=== PATIENT | male | born 1955 | race Caucasian/White ===

== ENCOUNTER 2023-10-08 20:01 | Inpatient (IN) | payer MEDICARE, SELFPAY ==
[2023-10-08] VITALS (14 sets, daily range): BP systolic 116–162; BP diastolic 69–106; PULSE 103–135; RESP 16–33; TEMP 36.1–36.6; O2SAT 29–100; BMI 19.7; BMI 20.5
[2023-10-08 20:26] LABS: Absolute Lymphocyte Count 3.98 X10^3/uL (0.83-4.51); Basophil# 0.06 X10^3/uL; Basophil% 0.5 % (0-1); Eosinophils% 0.9 % (0-5); Hematocrit 47.1 % (40-54); Hemoglobin 15.1 g/dL (13.0-16.5); Lymphocyte # 3.98 X10^3/ul (0.83-4.51); Lymphocyte % 34.5 % (19-41); Mean Corp Hgb Conc 32.1 g/dL (32-36); Mean Corpuscular Hgb 30.8 pg (27.0-32.0); Mean Corpuscular Volume 95.9 fL (80-94); Mean Platelet Vol. 9.6 fl (6.2-12.0); Monocyte# 1.25 X10^3/uL; Monocyte% 10.8 % (0-10); NRBC Flagged by Analyzer 0 % (0-5); Platelet Count 284 K/mm3 (150-450); RBC Distribution Width CV 14.4 % (11.6-14.6); RBC Distribution Width SD 50.3 fl (35.1-43.9); Red Blood Count 4.91 M/mm3 (4.6-6.2); White Blood Count 11.5 K/mm3 (4.4-11.0)
[2023-10-08 20:35] LABS: Base Excess 3 mmol/L (-2 to +2); Bicarbonate 31.3 mmol/L (22-26); Blood Gas Specimen Type ART; Comment avaps; Mode Not entered; O2 Delivery Device BiPAP; PEEP 10; PO2 96 mmHG (75-100); RR 16; SITE L Brach; SO2 94 % (95-99); Time Given 20:31:43; Total Carbon Dioxide 34 mmol/L; pCO2 87.7 mmHg (35-45); pH 7.16 (7.35-7.45)
[2023-10-08] MEDS: Albuterol 2.5 MG/3 ML VIAL.NEB. INHALATION (20:35)
[2023-10-08] MEDS: Ipratropium/Albuterol Sulfate 3 ML AMPUL.NEB INHALATION (20:35)
[2023-10-08 20:38] LABS: Partial Thromboplast Time 27.1 Seconds (24.1-36.2)
--- NOTE | 2023-10-08 20:43 | EDS_ITS ---
HPI History of Present Illness Chief Complaint: Shortness of Breath Informant: family and EMS Narrative Narrative: Presents by EMS worsening respiratory distress. Status post IM epinephrine DuoNeb Solu-Medrol by EMS. Family shortly came afterwards history of COPD tobacco history and alcohol history. Daughter present and son-in-law. He has not seen a physician in years. Has been diagnosed COPD does not wear oxygen. EMS had a pulse ox of 70%. Per daughter, patient's sisters was at the house 2 days ago he declined to go to the hospital then. He may have had symptoms for 2 weeks. He has no allergies. PFSH PFSH Medical History no medical history Home Medications NK 10/08/23 [History Last Taken Unknown] Allergy/AdvReac Type Severity Reaction Status Date / Time No Known Allergies Allergy Verified 10/08/23 20:03 Surgical History no surgical history Social History Smoking Status: Heavy Smoker (>10/day) ROS ROS ED Review of Systems ROS Unobtainable: other Details: Limited due to respiratory distress EXAM Physical Exam Const Vital Signs: 10/08/23 20:02 10/08/23 20:02 10/08/23 20:08 Temperature 97.1 F L 97.1 F L Temperature Source Temporal Temporal Pulse Rate 133 H 131 H Respiratory Rate 30 H 30 H Respiratory Effort Short of Breath Labored Respiratory Depth Deep Respiratory Pattern Tachypnea Blood Pressure 162/106 H Blood Pressure Mean 124 Pulse Ox 100 99 Oxygen Delivery Method Non-Rebreather Non-Rebreather Non-Rebreather Oxygen Flow Rate (L/min) 15 15 15 Fraction of Inspired Oxygen (FIO2) 10/08/23 20:19 10/08/23 20:29 10/08/23 20:34 Temperature Temperature Source Pulse Rate 135 H 126 H Respiratory Rate 33 H 29 H Respiratory Effort Respiratory Depth Respiratory Pattern Tachypnea Blood Pressure Blood Pressure Mean Pulse Ox 95 96 Oxygen Delivery Method Bi-pap Oxygen Flow Rate (L/min) Fraction of Inspired Oxygen (FIO2) 35 10/08/23 20:56 10/08/23 21:02 10/08/23 21:10 Temperature Temperature Source Pulse Rate 124 H 120 H 122 H Respiratory Rate 31 H 29 H 31 H Respiratory Effort Respiratory Depth Respiratory Pattern Stridor Stridor Blood Pressure 133/86 H Blood Pressure Mean 101 Pulse Ox 96 96 97 Oxygen Delivery Method Bi-pap Oxygen Flow Rate (L/min) Fraction of Inspired Oxygen (FIO2) 35 10/08/23 21:11 Temperature Temperature Source Pulse Rate 120 H Respiratory Rate 29 H Respiratory Effort Respiratory Depth Respiratory Pattern Stridor Blood Pressure Blood Pressure Mean Pulse Ox Oxygen Delivery Method Oxygen Flow Rate (L/min) Fraction of Inspired Oxygen (FIO2) Constitutional Narrative: Currently nonrebreather with aerosol treatments running. Accessory muscle use with abdominal breathing. Moving all extremities. HEENT normocephalic and atraumatic Eyes General Eye ED: Yes normal appearance of both eyes Neck no lymphadenopathy and supple General: Negative for tenderness Chest Wall Chest: Negative for tenderness Resp Resp Narrative: Minimal air movement bilaterally. Effort and Inspection: respiratory distress Cardio regular rhythm and no murmurs Rate: tachycardic Peripheral Pulses: pulses 2+ throughout GI normal to inspection, nondistended, normoactive bowel sounds and non-tender Palpation: Negative for guarding or rebound tenderness present Extremity normal to inspection General Extremety ED: Negative for edema or tenderness General Extremity: Negative for edema Neuro Sensorium / Orientation: awake and alert Skin no rashes or lesions noted MDM MDM MDM Narrative Medical decision making narrative: Interventions / MDM: Differential diagnosis: COPD, respiratory failure. Diagnosis considered but do not suspect: Pneumothorax however x-ray negative. My EKG interpretation: Sinus tachycardia rate of 131, PVCs noted. Imaging independently reviewed and interpreted by myself: 1 view chest x-ray: Hyperinflated lungs. No pneumothorax. 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 Very minimal air movement. Sepsis labs ordered he is placed on a BiPAP with continued aerosol, heliox ordered with his COPD history. His heart rate was going on 135, however had a short spurt heart rate to 12 that converted back down to 130s, likely SVT. 2030: BiPAP and heliox is running. Additional aerosol treatments are running. ABG with pH of 7.16, CO2 87 PaO2 95 at 35% oxygenation. He is having air movement however still tight. Does seem to have upper airway breathing. Will try racemic epinephrine. 2100: 1 view chest x-ray noting COPD lungs. No pneumothorax. COVID and flu negative. Patient much better after treatments on a BiPAP. Blood work white count 11.5 creatinine 0.63 sodium 133. Lactic acid 2.8 however likely secondary to respiratory component. Therefore clinically not likely sepsis. Troponin at 23. Alcohol negative. I did discuss with hospitalist Dr. Garcia for admission to the ICU. Will start doxycycline with COPD history with productive sputum. Re-evaluation: stable Disposition discussed with patient/family/significant other: Patient and family Case discussed with consulting clinician: Hospitalist This note was generated with [employer] dictation software. It may contain incorrect words, spelling, and punctuation that were not noted in checking the note before signing. Lab Data Labs: Laboratory Results - last 24 hr 10/08/23 10/08/23 20:15 20:18 WBC 11.5 H RBC 4.91 Hgb 15.1 Hct 47.1 MCV 95.9 H MCH 30.8 MCHC 32.1 RDW Std Deviation 50.3 H RDW Coeff of Elidia 14.4 Plt Count 284 MPV 9.6 Immature Gran % (Auto) 1.300 H Neut % (Auto) 52.0 Lymph % (Auto) 34.5 [place] % (Auto) 10.8 H Eos % (Auto) 0.9 Baso % (Auto) 0.5 Absolute Neuts (auto) 6.0 Absolute Lymphs (auto) 3.98 Nucleated RBC % 0 PT 13.0 INR 1.0 APTT 27.1 Sodium 133 L Potassium 4.0 Chloride 94 L Carbon Dioxide 34.0 H Anion Gap 5 BUN 5 L Creatinine 0.63 L Estim Creat Clear Calc 82.38 Est GFR (MDRD) Af Amer 164 Est GFR (MDRD) Non-Af 135 BUN/Creatinine Ratio 8.0 L Glucose 184 H Lactic Acid 2.8 H* Calcium 8.8 Total Bilirubin 0.60 AST 80 H ALT 136 H Alkaline Phosphatase 89 Troponin I High Sens 23 Total Protein 7.7 Albumin 3.9 Globulin 3.8 Albumin/Globulin Ratio 1.0 Ethyl Alcohol < 3.0 ABG Data ABG results: ABG 10/08/23 20:30 Specimen Type ART Sample Site L Brach pH 7.16 L* Bicarbonate Actual 31.3 H Total CO2 34 Base Excess 3 H O2 Saturation 94 L O2 % 35.0 ABG pCO2 87.7 H* ABG pO2 96 Respiration Rate 16 O2 Delivery Device BiPAP Vent Mode Not entered Tidal Volume 450.0 POC PEEP 10 Crit Call To/Read Back Yes Blood Gas Notified Whom le Blood Gas Notified Time 20:31:43 Clinical Comments avaps Radiography Diagnostic Testing: Clinical Impression(s) from Imaging Studies Chest X-Ray 10/08/23 20:50 IMPRESSION: Hyperinflated lungs with interstitial prominence although no focal pneumonia. Findings are most likely due to COPD. Electronically Signed: Ben Catrer, at 21:01 EDT , Critical Care Time Critical Care Time: Yes Critical care time (excluding procedures): 30-74 minutes, Discussing w/Patient &/or Family/Concrete Mixer, Discussing w/Consultants, Arranging Admission or Tra nsfer, Performing Direct Patient Care at Bedside and - (40 minutes) Discharge Plan Dx/Rx/DC Orders Clinical Impression: Acute hypoxic respiratory failure, Alcohol abuse, Tobacco abuse, COPD exacerbation Disposition Disposition: Acute Care Hospital [facility] Discharge Date/Time: 10/08/23 23:27
[2023-10-08 20:48] LABS: Alcohol, Blood (Medical)-Serum < 3.0 mg/dL
[2023-10-08 20:49] LABS: AST(SGOT) 80 U/L (15-37); Alanine Aminotransfer ALT/SGPT 136 U/L (16-61); Albumin, Serum 3.9 g/dL (3.2-5.0); Alkaline Phosphatase 89 U/L (45-117); Anion Gap 5 (5-15); BUN 5 mg/dL (7-18); Calcium,Total 8.8 mg/dL (8.5-10.1); Chloride 94 mmol/L (98-107); Creatinine, Serum 0.63 mg/dL (0.70-1.30); EST Glomerular Filtration Rate 135 mL/min (>60); Est Glom Filt Rate - Afr Amer 164 mL/min (>60); Estimated Creatinine Clearance 82.38 ml/min; Globulin 3.8 g/dL (2.2-4.2); Glucose 184 mg/dL (74-106); Protein, Total 7.7 g/dL (6.4-8.2); Sodium Level 133 mmol/L (136-145); Troponin-I HS 23 pg/mL (3.0-78.0)
--- NOTE | 2023-10-08 20:50 | RAD_ITS ---
EXAM: XR CHEST, 1 VIEW CLINICAL INDICATION: sob TECHNIQUE: Frontal view of the chest. COMPARISON: No relevant prior studies available. FINDINGS: LUNGS AND PLEURAL SPACES: Hyperinflated lungs with interstitial prominence although no focal pneumonia. Findings are most likely due to COPD. No pneumothorax. No effusion. HEART: No significant abnormality. Cardiac silhouette not enlarged. MEDIASTINUM: Central airways and mediastinal contour are unremarkable. BONES/JOINTS: Degenerative changes in the spine and shoulders. No acute fracture. SOFT TISSUES: No significant abnormality. RAD/Chest 1 View (Portable) IMPRESSION: Hyperinflated lungs with interstitial prominence although no focal pneumonia. Findings are most likely due to COPD. Electronically Signed: Ben Carter DO at 21:01 EDT ,
[2023-10-08 21:08] LABS: Lactic Acid 2.8 mmol/L (0.4-1.9)
[2023-10-08] MEDS: Racepinephrine HCl 0.5 ML VIAL.NEB. INHALATION (21:08)
--- NOTE | 2023-10-08 21:23 | HP.PCM.HOS_ITS ---
HPI - General General Date of Admission: 10/08/23 Date of Service: 10/08/23 Chief Complaint: SOB and Wheezing HPI Narrative CHACORTA CONCEPCION, is a 68 M with a past medical history of tobacco abuse; with subsequent COPD, chronic alcohol abuse; with patient drinking six 40 ounce beers daily and history of agoraphobia; with patient refusing to leave his house for years who presents to [facility] ER complaining of shortness of breath and wheezing. Mr. Griffin reports his symptoms began approximately 2 weeks prior to admission with a gradual onset of dyspnea on exertion that progressed to shortness of breath at rest. He also admits to severe wheezing but he continues to smoke and drink alcohol as noted above. Two days ago his sisters came to see him at his house and he declined to go to the hospital at that time. Then EMS was activated earlier today and he was noted to have a pulse ox of 70% on room air with obvious respiratory distress so he was brought in for further evaluation and treatment. There is no report of fever, chills, nausea or vomiting but the daughter reports he has a chronic pattern of self-neglect with poor hygiene and declining functional status complicated by stubbornly wanting to avoid asking for help so she requested that palliative care be consulted this admission, which was done. In the ER he was diagnosed with acute exacerbation of COPD complicated by clinical evidence of acute hypoxic respiratory failure requiring BiPAP and heliox in the setting of ongoing tobacco abuse, alcohol a buse and medical noncompliance and he was then admitted to the ICU for ongoing care for stay that is expected to be greater than 48 hours. [facility] Medical History no medical history Home Medications NK 10/08/23 [History Last Taken Unknown] Allergy/AdvReac Type Severity Reaction Status Date / Time No Known Allergies Allergy Verified 10/08/23 20:03 Surgical History no surgical history Social History Smoking Status: Heavy Smoker (>10/day) ROS ROS Narrative Review of systems was not possible as patient is on BiPAP and heliox with acute shortness of breath so he was unable to complete a full review of systems at this time. Vital Signs Vital Signs Vital Signs: 10/08/23 20:02 10/08/23 20:02 10/08/23 20:08 Temperature 97.1 F L 97.1 F L Temperature Source Temporal Temporal Pulse Rate 133 H 131 H Respiratory Rate 30 H 30 H Respiratory Effort Short of Breath Labored Respiratory Depth Deep Respiratory Pattern Tachypnea Blood Pressure 162/106 H Blood Pressure Mean 124 Pulse Ox 100 99 Oxygen Delivery Method Non-Rebreather Non-Rebreather Non-Rebreather Oxygen Flow Rate (L/min) 15 15 15 Fraction of Inspired Oxygen (FIO2) 10/08/23 20:19 10/08/23 20:29 10/08/23 20:34 Temperature Temperature Source Pulse Rate 135 H 126 H Respiratory Rate 33 H 29 H Respiratory Effort Respiratory Depth Respiratory Pattern Tachypnea Blood Pressure Blood Pressure Mean Pulse Ox 95 96 Oxygen Delivery Method Bi-pap Oxygen Flow Rate (L/min) Fraction of Inspired Oxygen (FIO2) 35 10/08/23 20:56 10/08/23 21:02 10/08/23 21:10 Temperature Temperature Source Pulse Rate 124 H 120 H 122 H Respiratory Rate 31 H 29 H 31 H Respiratory Effort Respiratory Depth Respiratory Pattern Stridor Stridor Blood Pressure 133/86 H Blood Pressure Mean 101 Pulse Ox 96 96 97 Oxygen Delivery Method Bi-pap Oxygen Flow Rate (L/min) Fraction of Inspired Oxygen (FIO2) 35 10/08/23 21:11 Temperature Temperature Source Pulse Rate 120 H Respiratory Rate 29 H Respiratory Effort Respiratory Depth Respiratory Pattern Stridor Blood Pressure Blood Pressure Mean Pulse Ox Oxygen Delivery Method Oxygen Flow Rate (L/min) Fraction of Inspired Oxygen (FIO2) Weight Weight: 145 lb 4.554 oz Body Mass Index (BMI) 19.7 Physical Exam Const alert, oriented x3 and average body habitus Constitutional Narrative: Patient in mild distress on Heliox. Appears chronically ill. HEENT normocephalic, head/scalp atraumatic, hearing grossly normal bilaterally and moist oral mucous membranes Eyes PERRL and EOMs intact bilaterally Neck no lymphadenopathy and supple Resp Resp Narrative: Diminished breath sounds throughout with scattered wheezing and signs of stridor. Auscultation: wheezes Cardio regular rate and regular rhythm GI normal to inspection, nondistended, normoactive bowel sounds, soft to palpation, non-tender and non-distended Extremity normal to inspection, full ROM and no clubbing, cyanosis or edema Skin Skin Narrative: Patient has no evidence of abscess or rash. Neuro CN's II-XII intact bilaterally, moves all extremities and no focal motor deficits Sensorium / Orientation: awake, alert, oriented to person and oriented to place Speech: speech normal Psych affect normal Results Medical Records Data Attestation: I reviewed the patient's medical records Lab / Micro Data Attestation: I reviewed the patient's lab results. 10/09/23 04:45 10/08/23 20:15 Labs: Laboratory Results - last 24 hr 10/08/23 20:15: WBC 11.5 H, RBC 4.91, Hgb 15.1, Hct 47.1, MCV 95.9 H, MCH 30.8, MCHC 32.1, RDW Std Deviation 50.3 H, RDW Coeff of Elidia 14.4, Plt Count 284, MPV 9.6, Immature Gran % (Auto) 1.300 H, Neut % (Auto) 52.0, Lymph % (Auto) 34.5, [place] % (Auto) 10.8 H, Eos % (Auto) 0.9, Baso % (Auto) 0.5, Absolute Neuts (auto) 6.0, Absolute Lymphs (auto) 3.98, Nucleated RBC % 0, PT 13.0, INR 1.0, APTT 27.1, Sodium 133 L, Potassium 4.0, Chloride 94 L, Carbon Dioxide 34.0 H, Anion Gap 5, BUN 5 L, Creatinine 0.63 L, Estim Creat Clear Calc 82.38, Est GFR (MDRD) Af Amer 164, Est GFR (MDRD) Non-Af 135, BUN/Creatinine Ratio 8.0 L, Glucose 184 H, Lactic Acid 2.8 H*, Calcium 8.8, Total Bilirubin 0.60, AST 80 H, ALT 136 H, Alkaline Phosphatase 89, Troponin I High Sens 23, Total Protein 7.7, Albumin 3.9, Globulin 3.8, Albumin/Globulin Ratio 1.0 10/08/23 20:18: Ethyl Alcohol < 3.0 Micro: Microbiology 10/08/23 20:28 Mucosa - Nose SARS-CoV-2, Influenza & RSV (PCR) - Final ABG Data ABG results: ABG 10/08/23 20:30 Specimen Type ART Sample Site L Brach pH 7.16 L* Bicarbonate Actual 31.3 H Total CO2 34 Base Excess 3 H O2 Saturation 94 L O2 % 35.0 ABG pCO2 87.7 H* ABG pO2 96 Respiration Rate 16 O2 Delivery Device BiPAP Vent Mode Not entered Tidal Volume 450.0 POC PEEP 10 Crit Call To/Read Back Yes Blood Gas Notified Whom le Blood Gas Notified Time 20:31:43 Clinical Comments avaps Imaging Radiology Impression Chest X-Ray 10/08/23 20:50 IMPRESSION: Hyperinflated lungs with interstitial prominence although no focal pneumonia. Findings are most likely due to COPD. Electronically Signed: Ben Carter DO at 21:01 EDT , Assessment & Plan Assessment/Plan (1) COPD exacerbation: (2) Acute hypoxic respiratory failure: (3) Lactic acidosis: (4) Tobacco abuse: (5) Alcohol abuse: (6) Medical non-compliance: (7) Agoraphobia: PLAN: Plan 1. Acute exacerbation of COPD in the setting of ongoing tobacco abuse with severe acute hypoxic respiratory failure and severe respiratory acidosis present on admission requiring BiPAP and heliox - Admit to ICU. Continue IV doxycycline begun in the ER in addition to IV Solu-Medrol plus scheduled and as needed nebulizers. Tobacco cessation will be strongly encouraged with nicotine patch offered to control cravings. Recheck ABG to follow trend and response to treatment. 2. Mild lactic acidosis of 2.1 mmol/L present on admission due to #1 - Noted. Recheck lactate to ensure improvement. 3. History of severe alcohol abuse complicating #1 & #2 - Start alcohol withdrawal protocol consisting primarily of phenobarbital taper. Alcohol cessation will be strongly encouraged. 4. Medical noncompliance - Noted. Patient is still a full code at this time. Hopefully we can avoid intubation. I spoke at length with his daughter, Georgina, who is agreeable for palliative care consultation which has been ordered. 5. History of agoraphobia - Noted. Give anxiolytics as needed for breakthrough symptoms. 6. DVT prophylaxis - Lovenox 40 mg subcu daily. Total time: Approximately 75 minutes. Charges/Coding Visit Charges Inpatient E&M: 98127 Init Hosp L3
[2023-10-08] MEDS: Doxycycline 100 MG in Dextrose 5%-Water (250mL Bag) 250 ML 250 MG IV (21:50)
[2023-10-08 23:13] LABS: Allen Test Positive; Base Excess 5 mmol/L (-2 to +2); Bicarbonate 30.6 mmol/L (22-26); Blood Gas Specimen Type ART; Mode avaps; O2 Delivery Device Not entered; PEEP 10; PO2 67 mmHG (75-100); RR 16; SITE R Radial; SO2 91 % (95-99); Total Carbon Dioxide 32 mmol/L; pCO2 57.4 mmHg (35-45); pH 7.33 (7.35-7.45)
[2023-10-09] VITALS (17 sets, daily range): BP systolic 98–126; BP diastolic 65–103; PULSE 73–112; RESP 14–22; TEMP 36.1–36.9; O2SAT 94–100; BMI 20.5
[2023-10-09 00:19] LABS: Reflex Lactate? Y
--- NOTE | 2023-10-09 00:36 | ECHOD_ITS ---
Reason For Study: CHF Procedure This was a 2D Doppler, Color Flow transthoracic echocardiogram. Technically difficult study with limited views. Exam performed portable in ICU/CCU. Left Ventricle Normal size and thickness. Moderate global left ventricular systolic dysfunction. The left ventricular ejection fraction is 40 %. Unable to assess diastolic function based on available data. Right Ventricle Normal right ventricle. Atria The left and right atria are normal. Mitral Valve Trivial mitral valve insufficiency. Tricuspid Valve Mild tricuspid valve insufficiency. Normal pulmonary artery pressure. Aortic Valve Trisinus/trileaflet aortic valve. Pulmonic Valve The pulmonic valve is not well visualized. Great Vessels The aortic root is not well visualized. Pericardium/Pleural No pericardial effusion. MMode/2D Measurements & Calculations RVDd: 4.1 cm Time Measurements MV dec time: 0.20 sec Doppler Measurements & Calculations MV E max víctor: 50.7 cm/sec MV V2 max: 83.3 cm/sec MV A max víctor: 59.4 cm/sec MV max P.8 mmHg MV dec slope: 253.1 cm/sec2 MV E/A: 0.85 MV V2 mean: 44.5 cm/sec MV mean P.97 mmHg MV V2 VTI: 19.0 cm Ao V2 max: 120.1 cm/sec LV V1 max: 122.5 cm/sec MR max víctor: 499.9 cm/sec Ao max P.9 mmHg LV V1 max P.0 mmHg MR max P.0 mmHg Ao V2 mean: 99.1 cm/sec LV V1 mean P.0 mmHg Ao mean P.6 mmHg LV V1 mean: 80.3 cm/sec Ao V2 VTI: 27.1 cm LV V1 VTI: 19.7 cm AV (velocity ratio): 0.73 PA V2 max: 83.8 cm/sec TR max víctor: 206.4 cm/sec PA max PG (full): 1.1 mmHg TR max P.0 mmHg ECHO/Echo Complete Interpretation Summary Technically difficult study with limited views. Moderate global left ventricular systolic dysfunction. The left ventricular ejection fraction is 40 %. Mild tricuspid valve insufficiency. Ordering Physician: Mickey Floyd Performed By: Ronnie Marcos and Student
[2023-10-09] MEDS: Phenobarbital 32.4 MG Tablet PO ×5 (00:46→21:54)
[2023-10-09] MEDS: Lactobacillis Acidophilus 2 CAP PO ×3 (00:46→22:08)
[2023-10-09] MEDS: 0.9% Normal Saline (1000mL) 1,000 ML 70 ML IV (00:46)
[2023-10-09 01:31] LABS: BNP,B-Type NATRIURETIC PEPTIDE 124.1 pg/mL (0-100)
[2023-10-09 01:35] LABS: Lactic Acid 2.1 mmol/L (0.4-1.9)
[2023-10-09 05:17] LABS: Absolute Neutrophil Count 4.8 X10^3/uL (2.0-7.7); Hematocrit 42.2 % (40-54); Hemoglobin 13.8 g/dL (13.0-16.5); Lymphocyte % 5.8 % (19-41); Mean Corp Hgb Conc 32.7 g/dL (32-36); Mean Corpuscular Hgb 30.9 pg (27.0-32.0); Mean Corpuscular Volume 94.6 fL (80-94); Mean Platelet Vol. 9.8 fl (6.2-12.0); Monocyte# 0.07 X10^3/uL; Monocyte% 1.4 % (0-10); NRBC Flagged by Analyzer 0 % (0-5); Neutrophil # 4.78 X10^3/uL (2.7-7.7); Neutrophil % 92.4 % (47-70); POSITIVE DIFFERENTIAL YES; Platelet Count 266 K/mm3 (150-450); RBC Distribution Width CV 14.3 % (11.6-14.6); RBC Distribution Width SD 49.5 fl (35.1-43.9); Red Blood Count 4.46 M/mm3 (4.6-6.2); White Blood Count 5.2 K/mm3 (4.4-11.0)
[2023-10-09 05:38] LABS: Bacteria 0 SEEN /hpf (None Seen); Mucous, Urine 0 SEEN /hpf (<or=2+); Red Blood Cells-Urine 0 SEEN /hpf (0-5); White Blood Cells 0 SEEN /hpf (0-5)
[2023-10-09 05:53] LABS: Color, Urine Yellow (Yellow); Glucose, Dipstick 50 mg/dl (Normal); Ketone-Dipstick 15 mg/dl (Negative); Leukocyte Esterase-Dipstick Negative /ul (Negative); Nitrite-Dipstick Negative (Negative); Occult Blood-Urine Negative /ul (Negative); Protein-Dipstick 15 mg/dl (Negative); Urine Bilirubin Dipstick Negative (Negative); Urine Clarity Clear (Clear); Urine Urobilinogen 1 mg/dl (Normal); Urine pH 6.5 (5.0 - 8.0)
--- NOTE | 2023-10-09 05:55 | RAD_ITS ---
INDICATION: COPD exacerbation EXAMINATION/TECHNIQUE: X-RAY - XR Chest 1 View AP portable. 4:33 AM COMPARISON: 10/08/2023 FINDINGS: LINES/DEVICES: None. LUNGS: Mildly hyperinflated. No consolidation. No pneumothorax. MEDIASTINUM: Unremarkable. CARDIAC [place]: Not enlarged. BONES AND SOFT TISSUES: No acute abnormalities. RAD/Chest 1 View (Portable) IMPRESSION: Hyperinflated. No infiltrates. Electronically Signed: Rosalia Gilbert MD at 6:10 EDT ,
[2023-10-09 05:59] LABS: Blood Gas Specimen Type VEN; O2 Delivery Device BiPAP; PEEP 8; RR 14; SITE Not entered; VBG BASE EXCESS 6 mmol/L (-1.0-3.5); VBG Bicarbonate 31 mmol/L (22-26); VBG PO2 34 mmHg (25-40); VBG SO2 60 % (50-70); VBG TCO2 33 mmol/L (23-33); VBG pCO2 56.4 mmHg (41-51); VBG pH 7.35 (7.32-7.42)
[2023-10-09 06:04] LABS: ALB/GLOB Ratio 0.9 RATIO (0.9-2.4); AST(SGOT) 57 U/L (15-37); Alanine Aminotransfer ALT/SGPT 117 U/L (16-61); Albumin, Serum 3.2 g/dL (3.2-5.0); Alkaline Phosphatase 71 U/L (45-117); Anion Gap 5 (5-15); BUN 6 mg/dL (7-18); Calcium,Total 8.6 mg/dL (8.5-10.1); Chloride 96 mmol/L (98-107); Creatinine, Serum 0.43 mg/dL (0.70-1.30); EST Glomerular Filtration Rate 209 mL/min (>60); Est Glom Filt Rate - Afr Amer 253 mL/min (>60); Estimated Creatinine Clearance 78.63 ml/min; Globulin 3.4 g/dL (2.2-4.2); Glucose 152 mg/dL (74-106); Magnesium 2.2 mg/dL (1.6-2.6); Phosphorus 2.8 mg/dL (2.5-4.9); Potassium 4.4 mmol/L (3.5-5.1); Protein, Total 6.6 g/dL (6.4-8.2); Sodium Level 134 mmol/L (136-145)
[2023-10-09 06:35] LABS: Lactic Acid 1.2 mmol/L (0.4-1.9)
[2023-10-09 06:44] LABS: Amphetamine Urine VISTA NEGATIVE (<1000 ng/mL); Barbiturate Urine VISTA POSITIVE (< 200 ng/mL); Benzodiazepine Urine VISTA NEGATIVE (< 200 ng/mL); Cocaine Urine VISTA NEGATIVE (< 300 ng/mL); Ecstacy Urine VISTA NEGATIVE (< 500 ng/mL); Methadone Urine VISTA NEGATIVE (< 300 ng/mL); PCP Urine VISTA NEGATIVE (< 25 ng/mL); THC Urine VISTA NEGATIVE (< 50 ng/mL); Vista UDS pH Range 6
[2023-10-09 06:58] LABS: Squamous Epithelial Cells - UA 0-5 SEEN /hpf (0-5)
[2023-10-09] MEDS: Furosemide 40 MG/4 ML Vial IV (09:39)
[2023-10-09] MEDS: Pantoprazole Sodium 40 MG in 0.9% Normal Saline (100mL MB+) 100 ML 330 MG IV (09:39)
[2023-10-09] MEDS: Thiamine Hydrochloride 100 MG Tablet PO (09:47)
[2023-10-09] MEDS: Folic Acid 1 MG Tablet PO (09:47)
[2023-10-09] MEDS: Enoxaparin 40 MG/0.4 ML Syringe SC (09:48)
[2023-10-09] MEDS: Doxycycline 100 MG in Dextrose 5%-Water (250mL Bag) 250 ML 250 MG IV ×2 (10:05→22:40)
--- NOTE | 2023-10-09 10:34 | PN.HOSP_ITS ---
Subjective Subjective Doing well, breathing little bit easier while on BiPAP Objective Data Objective Data Vital Signs: Vital Signs Temp Pulse Resp BP Pulse Ox O2 Del Method O2 Flow Rate 98.0 F 85 20 H 126/103 H 100 Nasal Cannula 2 10/09/23 10:00 10/09/23 10:00 10/09/23 10:00 10/09/23 10:00 10/09/23 10:00 10/09/23 10:00 10/09/23 10:00 FiO2 21 10/09/23 09:00 Oxygen Flow Rate (L/min) 2 Oxygen Delivery Method Nasal Cannula Weight: 138 lb 10.732 oz Body Mass Index (BMI) 20.5 Intake & Output: Intake and Output for Last 24 Hours 10/08/23 10/09/23 10/10/23 03:59 03:59 03:59 Intake Total 500 / 500 768 / 768 Output Total 600 / 600 400 / 400 Balance -100 / -100 368 / 368 Lab / Micro Data 10/09/23 04:45 10/09/23 04:45 Labs: Laboratory Results - last 24 hr 10/08/23 20:15: WBC 11.5 H, RBC 4.91, Hgb 15.1, Hct 47.1, MCV 95.9 H, MCH 30.8, MCHC 32.1, RDW Std Deviation 50.3 H, RDW Coeff of Elidia 14.4, Plt Count 284, MPV 9.6, Immature Gran % (Auto) 1.300 H, Neut % (Auto) 52.0, Lymph % (Auto) 34.5, [place] % (Auto) 10.8 H, Eos % (Auto) 0.9, Baso % (Auto) 0.5, Absolute Neuts (auto) 6.0, Absolute Lymphs (auto) 3.98, Nucleated RBC % 0, PT 13.0, INR 1.0, APTT 27.1, Sodium 133 L, Potassium 4.0, Chloride 94 L, Carbon Dioxide 34.0 H, Anion Gap 5, BUN 5 L, Creatinine 0.63 L, Estim Creat Clear Calc 82.38, Est GFR (MDRD) Af Amer 164, Est GFR (MDRD) Non-Af 135, BUN/Creatinine Ratio 8.0 L, Glucose 184 H, Lactic Acid 2.8 H*, Calcium 8.8, Total Bilirubin 0.60, AST 80 H, ALT 136 H, Alkaline Phosphatase 89, Troponin I High Sens 23, B-Natriuretic Peptide 124.1 H, Total Protein 7.7, Albumin 3.9, Globulin 3.8, Albumin/Globulin Ratio 1.0 10/08/23 20:18: Ethyl Alcohol < 3.0 10/09/23 00:27: Lactic Acid 2.1 H* 10/09/23 04:30: Urine Color Yellow, Urine Clarity Clear, Urine pH 6.5, Ur Specific [place] 1.010, Urine Protein 15 H, Urine Glucose (UA) 50 H, Urine Ketones 15 H, Urine Occult Blood Negative, Urine Nitrite Negative, Urine Bilirubin Negative, Urine Urobilinogen 1 H, Ur Leukocyte Esterase Negative, Urine RBC 0 SEEN, Urine WBC 0 SEEN, Ur Squamous Epith Cells 0-5 SEEN, Urine Bacteria 0 SEEN, Urine Mucus 0 SEEN 10/09/23 04:45: WBC 5.2, RBC 4.46 L, Hgb 13.8, Hct 42.2, MCV 94.6 H, MCH 30.9, MCHC 32.7, RDW Std Deviation 49.5 H, RDW Coeff of Elidia 14.3, Plt Count 266, MPV 9.8, Immature Gran % (Auto) 0.400, Neut % (Auto) 92.4 H, Lymph % (Auto) 5.8 L, [place] % (Auto) 1.4, Eos % (Auto) 0.0, Baso % (Auto) 0.0, Absolute Neuts (auto) 4.8, Absolute Lymphs (auto) 0.30 L, Nucleated RBC % 0, Sodium 134 L, Potassium 4.4, Chloride 96 L, Carbon Dioxide 33.0 H, Anion Gap 5, BUN 6 L, Creatinine 0.43 L, Estim Creat Clear Calc 78.63, Est GFR (MDRD) Af Amer 253, Est GFR (MDRD) Non- Af 209, BUN/Creatinine Ratio 14.0, Glucose 152 H, Calcium 8.6, Phosphorus 2.8, Magnesium 2.2, Total Bilirubin 0.50, AST 57 H, ALT 117 H, Alkaline Phosphatase 71, Total Protein 6.6, Albumin 3.2, Globulin 3.4, Albumin/Globulin Ratio 0.9 10/09/23 05:38: Urine Opiates Screen NEGATIVE, Urine Methadone Screen NEGATIVE, Ur Barbiturates Screen POSITIVE H, Ur Phencyclidine Scrn NEGATIVE, Ur Amphetamines Screen NEGATIVE, MDMA (Ecstasy) Screen NEGATIVE, U Benzodiazepines Scrn NEGATIVE, Urine Cocaine Screen NEGATIVE, U Cannabinoids Screen NEGATIVE, Ur Drug Screen Comment 10/09/23 05:40: Lactic Acid 1.2 Micro: Microbiology 10/08/23 20:28 Mucosa - Nose SARS-CoV-2, Influenza & RSV (PCR) - Final ABG Data ABG results: ABG 10/08/23 10/08/23 10/09/23 20:30 23:09 05:56 Specimen Type ART ART ESTEPHANIE Sample Site L Brach R Radial Not entered pH 7.16 L* 7.33 L Bicarbonate Actual 31.3 H 30.6 H Total CO2 34 32 Base Excess 3 H 5 H O2 Saturation 94 L 91 L O2 % 35.0 24.0 30.0 ABG pCO2 87.7 H* 57.4 H ABG pO2 96 67 L Forrest Test Positive VBG pH 7.35 VBG pO2 34 VBG HCO3 31 H VBG Total CO2 33 VBG O2 Sat (Calc) 60 VBG Base Excess 6 H POC Mix VBG pCO2 Pt Tmp 56.4 H Respiration Rate 16 16 14 O2 Delivery Device BiPAP Not entered BiPAP Vent Mode Not entered avaps Tidal Volume 450.0 450.0 450.0 POC PEEP 10 10 8 Crit Call To/Read Back Yes Blood Gas Notified Whom le Blood Gas Notified Time 20:31:43 Clinical Comments avaps Radiography Diagnostic Testing: Radiology Impression Chest X-Ray 10/08/23 20:50 IMPRESSION: Hyperinflated lungs with interstitial prominence although no focal pneumonia. Findings are most likely due to COPD. Electronically Signed: Ben Carter DO at 21:01 EDT , Chest X-Ray 10/09/23 05:55 IMPRESSION: Hyperinflated. No infiltrates. Electronically Signed: Rosalia Gilbert MD at 6:10 EDT , Physical Exam Narrative General: Alert, Oriented x3, Cooperative, No apparent distress HEENT: Atraumatic, PERRLA, EOMI, Normocephalic Oral: Moist Mucosa Neck: Supple, No JVD Lungs: Diminished, Normal air movement, No rhonchi, wheeze, No rales Cardiovascular: Regular rate, Regular Rhythm, Normal S1, Normal S2, No murmurs Abdomen: Soft, Non Tender, Non-Distended, No Hepato-splenomegaly Extremities: No edema, Capillary Refill Less than 3 Seconds Skin: No rashes, No breakdown Musculoskeletal: No Tenderness to Palpation of Joints or Extremities Neurological: No focal neurological deficits, Motor Exam 5/5 strength throughout, Sensory exam intact to light touch and pain Psych/Mental Status: Normal Affect, Appropriate Assessment & Plan Assessment/Plan (1) COPD exacerbation: (2) Acute hypoxic respiratory failure: (3) Lactic acidosis: (4) Tobacco abuse: (5) Alcohol abuse: (6) Medical non-compliance: (7) Agoraphobia: PLAN: Plan 1. Acute hypoxic and hypercapnic respiratory failure secondary to a COPD exacerbation ? Continue with BiPAP ? Steroids and breathing treatments ? He has been placed on prophylactic antibiotics ? Palliative care has been consulted 2. Severe alcohol abuse ? Continue with the alcohol withdrawal protocol ? Once he is more stable from respiratory standpoint we will discuss the possibility of outpatient rehab DVT: Lovenox Charges/Coding Visit Charges Inpatient E&M: 28289 Subs Hosp L2
[2023-10-09] MEDS: Ipratropium/Albuterol Sulfate 3 ML AMPUL.NEB INHALATION ×2 (11:31→19:50)
--- NOTE | 2023-10-09 11:45 | CASEMGMT ---
BLANE HOLLIDAY Assessment Face to Face with patient for initial transition planning/care coordination assessment. BLANE HOLLIDAY introduced self and role at [facility], pt voices understanding. Pt is A&Ox4 and is resting comfortably in bed and is calm. Pt daughter (Georgina) at bedside. Care providers, pharmacy, and demographics verified. Admitting dx: AE COPD in the setting of chronic ETOH abuse LACE Strata: 2 PCP: No PCP. List provided Specialists: Denies. States needing set up with a [facility]. Information provided to pt and pt daughter Preferred Pharmacy: [facility] during this stay Insurance: [facility] A/B Prescription Benefit: Pt denies, educated about resources such as Good Rx LNOK: Georgina Monsalve (Daughter), Rosalia Avila (Daughter) Living Arrangements: Pt lives alone in a single story home with 2 steps to enter ADLs/IADLs: States previously ind until recently Transportation: Self, daughters DME: Pt denies all DME uses. Pt is currently on oxygen. A verbal list of local in network DME companies provded to the pt. Pt states that he prefers [employer] for potential home oxygen needs. HHC/SNF: Denies history ETOH: Pt states that he was drinking 3-4 25oz beers per day prior to admission. Pt?s goal: Return home with Palliative and return to PLOF PLAN: TBD. Anticipate HH vs SNF. Pt and pt daughter also want Palliative Care Consulted. Screening tool, order, and face sheet sent to the Palliative care team at this time for referral. Pt plan is to be here through the weekend at least. Therapy evals are pending. Pt daughter states that she would like POA information. SW updated and will follow up on this. CM/SW to follow pt progression in the hospital to see what the pt best qualifies for moving forward. Leonora Conway RN, CM
[2023-10-09] MEDS: Menthol/Lanolin/Calamine/Znox 113 GM Tube 1 APPLIC TOPICAL (22:07)
[2023-10-10] VITALS (12 sets, daily range): BP systolic 101–123; BP diastolic 60–76; PULSE 86–111; RESP 16–18; TEMP 36.6–37.1; O2SAT 92–99; BMI 20.1
[2023-10-10] MEDS: Phenobarbital 32.4 MG Tablet PO ×6 (02:03→20:55)
[2023-10-10] MEDS: Menthol/Lanolin/Calamine/Znox 113 GM Tube 1 APPLIC TOPICAL ×2 (05:58→21:00)
[2023-10-10] MEDS: Ipratropium/Albuterol Sulfate 3 ML AMPUL.NEB INHALATION ×4 (07:17→19:03)
[2023-10-10 08:02] LABS: Absolute Lymphocyte Count 1.75 X10^3/uL (0.83-4.51); Absolute Neutrophil Count 5.4 X10^3/uL (2.0-7.7); Basophil# 0.01 X10^3/uL; Basophil% 0.1 % (0-1); Eosinophil# 0.04 X10^3/uL; Eosinophils% 0.5 % (0-5); Hematocrit 39.7 % (40-54); Hemoglobin 13.4 g/dL (13.0-16.5); Lymphocyte # 1.75 X10^3/ul (0.83-4.51); Lymphocyte % 21.5 % (19-41); Mean Corp Hgb Conc 33.8 g/dL (32-36); Mean Corpuscular Hgb 31.7 pg (27.0-32.0); Mean Corpuscular Volume 93.9 fL (80-94); Mean Platelet Vol. 9.7 fl (6.2-12.0); Monocyte# 0.92 X10^3/uL; Monocyte% 11.3 % (0-10); NRBC Flagged by Analyzer 0 % (0-5); Neutrophil # 5.39 X10^3/uL (2.7-7.7); Neutrophil % 66.4 % (47-70); Platelet Count 253 K/mm3 (150-450); RBC Distribution Width CV 14.6 % (11.6-14.6); RBC Distribution Width SD 50.8 fl (35.1-43.9); Red Blood Count 4.23 M/mm3 (4.6-6.2); White Blood Count 8.1 K/mm3 (4.4-11.0)
[2023-10-10 08:40] LABS: Anion Gap 6 (5-15); BUN 7 mg/dL (7-18); BUN/Creat Ratio 15.8 RATIO (10-20); Calcium,Total 8.5 mg/dL (8.5-10.1); Chloride 94 mmol/L (98-107); Creatinine, Serum 0.44 mg/dL (0.70-1.30); EST Glomerular Filtration Rate 202 mL/min (>60); Est Glom Filt Rate - Afr Amer 244 mL/min (>60); Estimated Creatinine Clearance 77.25 ml/min; Glucose 90 mg/dL (74-106); Potassium 3.1 mmol/L (3.5-5.1); Sodium Level 134 mmol/L (136-145)
[2023-10-10] MEDS: Folic Acid 1 MG Tablet PO (09:26)
[2023-10-10] MEDS: Thiamine Hydrochloride 100 MG Tablet PO (09:26)
[2023-10-10] MEDS: Lactobacillis Acidophilus 2 CAP PO ×2 (09:27→21:00)
[2023-10-10] MEDS: Enoxaparin 40 MG/0.4 ML Syringe SC (09:27)
[2023-10-10] MEDS: Pantoprazole Sodium 40 MG in 0.9% Normal Saline (100mL MB+) 100 ML 330 MG IV (09:28)
[2023-10-10] MEDS: Furosemide 40 MG Tablet PO (09:35)
[2023-10-10] MEDS: Doxycycline 100 MG in Dextrose 5%-Water (250mL Bag) 250 ML 250 MG IV ×2 (10:35→21:01)
--- NOTE | 2023-10-10 10:41 | PN.HOSP_ITS ---
Subjective Subjective Doing well, no issues overnight Objective Data Objective Data Vital Signs: Vital Signs Temp Pulse Resp BP Pulse Ox O2 Del Method O2 Flow Rate 97.8 F 86 17 123/67 H 99 Nasal Cannula 2 10/10/23 09:23 10/10/23 09:23 10/10/23 09:23 10/10/23 09:23 10/10/23 09:23 10/10/23 09:23 10/10/23 09:23 FiO2 21 10/09/23 09:00 Oxygen Flow Rate (L/min) 2 Oxygen Delivery Method Nasal Cannula Weight: 136 lb 3.931 oz Body Mass Index (BMI) 20.1 Intake & Output: Intake and Output for Last 24 Hours 10/09/23 10/10/23 10/11/23 03:59 03:59 03:59 Intake Total 500 / 500 1488 / 1488 110 / 110 Output Total 600 / 600 1900 / 2500 750 / 750 Balance -100 / -100 -412 / -1012 -640 / -640 Lab / Micro Data 10/10/23 06:32 10/10/23 06:32 Labs: Laboratory Results - last 24 hr 10/10/23 06:32: WBC 8.1, RBC 4.23 L, Hgb 13.4, Hct 39.7 L, MCV 93.9, MCH 31.7, MCHC 33.8, RDW Std Deviation 50.8 H, RDW Coeff of Elidia 14.6, Plt Count 253, MPV 9.7, Immature Gran % (Auto) 0.200, Neut % (Auto) 66.4, Lymph % (Auto) 21.5, [place] % (Auto) 11.3 H, Eos % (Auto) 0.5, Baso % (Auto) 0.1, Absolute Neuts (auto) 5.4, Absolute Lymphs (auto) 1.75, Nucleated RBC % 0, Sodium 134 L, Potassium 3.1 L, Chloride 94 L, Carbon Dioxide 34.0 H, Anion Gap 6, BUN 7, Creatinine 0.44 L, Estim Creat Clear Calc 77.25, Est GFR (MDRD) Af Amer 244, Est GFR (MDRD) Non-Af 202, BUN/Creatinine Ratio 15.8, Glucose 90, Calcium 8.5 Micro: Microbiology 10/09/23 04:30 Urine, Clean Catch Urine Culture - Preliminary Culture exhibits no growth. 10/08/23 20:28 Mucosa - Nose SARS-CoV-2, Influenza & RSV (PCR) - Final Radiography Diagnostic Testing: Radiology Impression Echocardiogram 10/09/23 00:36 Interpretation Summary Technically difficult study with limited views. Moderate global left ventricular systolic dysfunction. The left ventricular ejection fraction is 40 %. Mild tricuspid valve insufficiency. Ordering Physician: Mickey Floyd Performed By: Ronnie Marcos and Student Physical Exam Narrative General: Alert, Oriented x3, Cooperative, No apparent distress HEENT: Atraumatic, PERRLA, EOMI, Normocephalic Oral: Moist Mucosa Neck: Supple, No JVD Lungs: Diminished, Normal air movement, No rhonchi, wheeze, No rales Cardiovascular: Regular rate, Regular Rhythm, Normal S1, Normal S2, No murmurs Abdomen: Soft, Non Tender, Non-Distended, No Hepato-splenomegaly Extremities: No edema, Capillary Refill Less than 3 Seconds Skin: No rashes, No breakdown Musculoskeletal: No Tenderness to Palpation of Joints or Extremities Neurological: No focal neurological deficits, Motor Exam 5/5 strength throughout, Sensory exam intact to light touch and pain Psych/Mental Status: Flat Assessment & Plan Assessment/Plan (1) COPD exacerbation: (2) Acute hypoxic respiratory failure: (3) Lactic acidosis: (4) Tobacco abuse: (5) Alcohol abuse: (6) Medical non-compliance: (7) Agoraphobia: PLAN: Plan 1. Acute hypoxic and hypercapnic respiratory failure secondary to a COPD exacerbation ? Continue with BiPAP ? Steroids and breathing treatments ? He has been placed on prophylactic antibiotics ? Palliative care has been consulted ? PT/OT/case management for possible SNF placement 2. Severe alcohol abuse ? Continue with the alcohol withdrawal protocol ? Once he is more stable from respiratory standpoint we will discuss the possibility of outpatient rehab 3. Chronic systolic CHF ? Echo with an EF of 40% ? Discontinued IV fluids ? Continue with IV Lasix, will start lisinopril if blood pressures can handle it we will start a low-dose beta-joaquín ? Can follow-up with cardiology as an outpatient DVT: Yessica Charges/Coding Visit Charges Inpatient E&M: 38099 Subs Hosp L2
--- NOTE | 2023-10-10 10:42 | CASEMGMT ---
Social Work Pt completed POA for healthcare w/SW, declined to complete LW at this time. Pt listed his daughter Georgina as healthcare POA. SW gave pt the originals and copies, and a copy was placed on the chart. LIZZY Moore
--- NOTE | 2023-10-10 11:06 | CASEMGMT ---
Social Work SW met w/pt in regard to discharge plan. We discussed pt going home vs going to a jail facility for rehab. Pt has not needed to do this in the past. SW provided to pt a list from [facility] of jail facilities in pt's insurance network, preferred geographic area, and complete w/quality and resource use data. SW explained to pt we can see how therapy goes over the weekend, and can revisit this on Thursday. Pt walked 20 feet, though at this time as per therapy is limited due to his breathing. Pt acknowledges this. SW explained if we need to look at rehab, will ask him for a few choices and then we would send referrals to see who would have a bed available. SW also educated pt on the Medicare jail facility benefit. Pt states understanding. SW/CM will continue to follow for appropriate discharge plan, will follow up on Thursday. LIZZY Moore
[2023-10-10] MEDS: 0.9% Saline Lock 10 ML Syringe IV (13:00)
[2023-10-10] MEDS: Atorvastatin Calcium 40 MG Tablet PO (21:00)
[2023-10-11] VITALS (14 sets, daily range): BP systolic 69–108; BP diastolic 54–68; PULSE 86–101; RESP 15–22; TEMP 36.2–36.6; O2SAT 88–100; BMI 19.8
[2023-10-11] MEDS: Phenobarbital 32.4 MG Tablet PO ×5 (00:55→21:31)
[2023-10-11] MEDS: Menthol/Lanolin/Calamine/Znox 113 GM Tube 1 APPLIC TOPICAL ×3 (04:58→21:32)
[2023-10-11 05:34] LABS: Absolute Lymphocyte Count 1.62 X10^3/uL (0.83-4.51); Absolute Neutrophil Count 3.9 X10^3/uL (2.0-7.7); Basophil# 0.02 X10^3/uL; Basophil% 0.3 % (0-1); Eosinophil# 0.11 X10^3/uL; Eosinophils% 1.7 % (0-5); Hematocrit 40.8 % (40-54); Hemoglobin 13.2 g/dL (13.0-16.5); Lymphocyte # 1.62 X10^3/ul (0.83-4.51); Lymphocyte % 24.8 % (19-41); Mean Corp Hgb Conc 32.4 g/dL (32-36); Mean Corpuscular Hgb 30.6 pg (27.0-32.0); Mean Corpuscular Volume 94.7 fL (80-94); Mean Platelet Vol. 9.7 fl (6.2-12.0); Monocyte# 0.87 X10^3/uL; Monocyte% 13.3 % (0-10); NRBC Flagged by Analyzer 0 % (0-5); Neutrophil # 3.89 X10^3/uL (2.7-7.7); Neutrophil % 59.4 % (47-70); Platelet Count 245 K/mm3 (150-450); RBC Distribution Width CV 14.6 % (11.6-14.6); RBC Distribution Width SD 51.1 fl (35.1-43.9); Red Blood Count 4.31 M/mm3 (4.6-6.2); White Blood Count 6.5 K/mm3 (4.4-11.0)
[2023-10-11 06:07] LABS: Anion Gap 4 (5-15); BUN 5 mg/dL (7-18); BUN/Creat Ratio 14.2 RATIO (10-20); Calcium,Total 8.5 mg/dL (8.5-10.1); Chloride 98 mmol/L (98-107); Creatinine, Serum 0.35 mg/dL (0.70-1.30); EST Glomerular Filtration Rate 262 mL/min (>60); Est Glom Filt Rate - Afr Amer 317 mL/min (>60); Estimated Creatinine Clearance 77.25 ml/min; Glucose 96 mg/dL (74-106); Potassium 3.3 mmol/L (3.5-5.1); Sodium Level 137 mmol/L (136-145)
[2023-10-11] MEDS: Ipratropium/Albuterol Sulfate 3 ML AMPUL.NEB INHALATION ×4 (07:00→19:31)
[2023-10-11] MEDS: Potassium Chloride Oral Tablet 20 MEQ 40 MEQ PO (08:55)
[2023-10-11] MEDS: Folic Acid 1 MG Tablet PO (08:56)
[2023-10-11] MEDS: Thiamine Hydrochloride 100 MG Tablet PO (08:56)
[2023-10-11] MEDS: Pantoprazole Sodium 40 MG in 0.9% Normal Saline (100mL MB+) 100 ML 330 MG IV (09:22)
[2023-10-11] MEDS: 0.9% Saline Lock 10 ML Syringe IV (09:23)
[2023-10-11] MEDS: Enoxaparin 40 MG/0.4 ML Syringe SC (10:13)
[2023-10-11] MEDS: Furosemide 40 MG Tablet PO (10:14)
[2023-10-11] MEDS: Lactobacillis Acidophilus 2 CAP PO ×2 (10:14→21:32)
[2023-10-11] MEDS: Lisinopril 5 MG Tablet PO (10:15)
[2023-10-11] MEDS: Doxycycline 100 MG in Dextrose 5%-Water (250mL Bag) 250 ML 250 MG IV ×2 (10:20→21:32)
--- NOTE | 2023-10-11 11:30 | PN.HOSP_ITS ---
Subjective Subjective No significant change from yesterday, no issues overnight Objective Data Objective Data Vital Signs: Vital Signs Temp Pulse Resp BP Pulse Ox O2 Del Method O2 Flow Rate 97.6 F L 93 16 108/68 100 Nasal Cannula 2 10/11/23 08:43 10/11/23 10:48 10/11/23 10:48 10/11/23 08:43 10/11/23 08:43 10/11/23 10:00 10/11/23 10:00 FiO2 21 10/09/23 09:00 Oxygen Flow Rate (L/min) 2 Oxygen Delivery Method Nasal Cannula Weight: 133 lb 13.129 oz Body Mass Index (BMI) 19.8 Intake & Output: Intake and Output for Last 24 Hours 10/10/23 10/11/23 10/12/23 03:59 03:59 03:59 Intake Total 1488 / 1488 1430 / 1430 110 / 110 Output Total 1900 / 2500 1550 / 1550 Balance -412 / -1012 -120 / -120 110 / 110 Lab / Micro Data 10/11/23 05:15 10/11/23 05:15 Labs: Laboratory Results - last 24 hr 10/11/23 05:15: WBC 6.5, RBC 4.31 L, Hgb 13.2, Hct 40.8, MCV 94.7 H, MCH 30.6, MCHC 32.4, RDW Std Deviation 51.1 H, RDW Coeff of Elidia 14.6, Plt Count 245, MPV 9.7, Immature Gran % (Auto) 0.500, Neut % (Auto) 59.4, Lymph % (Auto) 24.8, [place] % (Auto) 13.3 H, Eos % (Auto) 1.7, Baso % (Auto) 0.3, Absolute Neuts (auto) 3.9, Absolute Lymphs (auto) 1.62, Nucleated RBC % 0, Sodium 137, Potassium 3.3 L, Chloride 98, Carbon Dioxide 35.0 H, Anion Gap 4 L, BUN 5 L, Creatinine 0.35 L, Estim Creat Clear Calc 77.25, Est GFR (MDRD) Af Amer 317, Est GFR (MDRD) Non-Af 262, BUN/Creatinine Ratio 14.2, Glucose 96, Calcium 8.5 Micro: Microbiology 10/08/23 20:28 Blood Culture (Wb) - Venous Blood Culture - Preliminary No growth in 48 hours. 10/08/23 20:23 Blood Culture (Wb) - Venous Blood Culture - Preliminary No growth in 48 hours. 10/09/23 04:30 Urine, Clean Catch Urine Culture - Final Culture exhibits no growth. 10/08/23 20:28 Mucosa - Nose SARS-CoV-2, Influenza & RSV (PCR) - Final Physical Exam Narrative General: Alert, Oriented x3, Cooperative, No apparent distress HEENT: Atraumatic, PERRLA, EOMI, Normocephalic Oral: Moist Mucosa Neck: Supple, No JVD Lungs: Diminished, Normal air movement, No rhonchi, wheeze, No rales Cardiovascular: Regular rate, Regular Rhythm, Normal S1, Normal S2, No murmurs Abdomen: Soft, Non Tender, Non-Distended, No Hepato-splenomegaly Extremities: No edema, Capillary Refill Less than 3 Seconds Skin: No rashes, No breakdown Musculoskeletal: No Tenderness to Palpation of Joints or Extremities Neurological: No focal neurological deficits, Motor Exam 5/5 strength throughout, Sensory exam intact to light touch and pain Psych/Mental Status: Flat Assessment & Plan Assessment/Plan (1) COPD exacerbation: (2) Acute hypoxic respiratory failure: (3) Lactic acidosis: (4) Tobacco abuse: (5) Alcohol abuse: (6) Medical non-compliance: (7) Agoraphobia: PLAN: Plan 1. Acute hypoxic and hypercapnic respiratory failure secondary to a COPD exacerbation ? Continue with BiPAP as needed ? Steroids and breathing treatments ? He has been placed on prophylactic antibiotics ? Palliative care has been consulted ? PT/OT/case management for possible SNF placement ? Will obtain an ambulatory pulse ox today 2. Severe alcohol abuse ? Continue with the alcohol withdrawal protocol ? Once he is more stable from respiratory standpoint we will discuss the poss ibility of outpatient rehab 3. Chronic systolic CHF ? Echo with an EF of 40% ? Discontinued IV fluids ? Continue with p.o. Lasix, will start lisinopril if blood pressures can handle it we will start a low-dose beta-joaquín ? Can follow-up with cardiology as an outpatient DVT: Lovenox Charges/Coding Visit Charges Inpatient E&M: 48895 Subs Hosp L2
[2023-10-11] MEDS: 0.9% Normal Saline (500mL Bag) 500 ML 250 ML IV (18:15)
[2023-10-11] MEDS: Atorvastatin Calcium 40 MG Tablet PO (21:32)
[2023-10-12] VITALS (31 sets, daily range): BP systolic 90–126; BP diastolic 60–83; PULSE 86–160; RESP 14–26; TEMP 36.2–36.7; O2SAT 88–100; BMI 20.3
[2023-10-12] MEDS: MethylPREDNISolone 125 MG/2 ML Vial IV (01:05)
[2023-10-12] MEDS: Racepinephrine HCl 0.5 ML VIAL.NEB. INHALATION (01:05)
--- NOTE | 2023-10-12 01:06 | NURSING ---
Hospitalist, RT, and this RN at bedside. Breathing treatment per RT. Pt cont to be alert. Strider in upper airway. Pulse ox 95% on 5L. Pt alert and oriented x3.
[2023-10-12] MEDS: Ipratropium/Albuterol Sulfate 3 ML AMPUL.NEB INHALATION ×6 (01:11→20:40)
[2023-10-12 01:28] LABS: Allen Test Positive; Base Excess 11 mmol/L (-2 to +2); Blood Gas Specimen Type ART; Mode Not entered; O2 Delivery Device Cannula; PO2 76 mmHG (75-100); SITE L Radial; SO2 93 % (95-99); Total Carbon Dioxide 39 mmol/L; pCO2 74.3 mmHg (35-45); pH 7.31 (7.35-7.45)
--- NOTE | 2023-10-12 01:45 | CT_ITS ---
EXAM: CT NECK WITHOUT INTRAVENOUS CONTRAST CLINICAL INDICATION: strider, r/o mass TECHNIQUE: Helically acquired images were obtained of the neck without intravenous contrast. This CT exam was performed using one or more of the following dose reduction techniques: automated exposure control, adjustment of the mA and/or kV according to patient size, and/or use of iterative reconstruction technique. RADIATION DOSE: CTDIvol = 11.76 mGy, DLP = 399.77 mGy-cm COMPARISON: No relevant prior studies available. FINDINGS: NASOPHARYNX: Unremarkable. SUPRAHYOID NECK: No retropharyngeal abnormality. INFRAHYOID NECK: The epiglottis is normal. SUBMANDIBULAR/PAROTID GLANDS: Unremarkable. Glands are normal in size. THYROID: Unremarkable. No enlarged or calcified nodules. BONES/JOINTS: No acute fracture. SOFT TISSUES: Unremarkable. VASCULATURE: No acute findings. LYMPH NODES: Unremarkable. No lymphadenopathy. LUNG APICES: Mild panlobular emphysematous changes in the lung apices. CT/Soft Tissue Neck without Contr IMPRESSION: No mass or other significant abnormality identified in the neck. Electronically Signed: Gagandeep Garza MD at 4:15 EDT ,
[2023-10-12] MEDS: 0.9% Normal Saline (500mL Bag) 500 ML 999 ML IV (02:11)
[2023-10-12] MEDS: Phenobarbital 32.4 MG Tablet PO ×4 (02:58→21:48)
[2023-10-12 03:22] LABS: Allen Test Positive; Base Excess 8 mmol/L (-2 to +2); Bicarbonate 32.7 mmol/L (22-26); Blood Gas Specimen Type ART; Mode Not entered; O2 Delivery Device BiPAP; PEEP 8; PO2 100 mmHG (75-100); RR 14; SITE L Radial; SO2 97 % (95-99); Total Carbon Dioxide 34 mmol/L; pH 7.37 (7.35-7.45)
[2023-10-12] MEDS: Menthol/Lanolin/Calamine/Znox 113 GM Tube 1 APPLIC TOPICAL ×3 (05:07→22:01)
--- NOTE | 2023-10-12 06:40 | NURSING ---
Attempt made to call Georgina, daughter and let her know events of the night, but unable to contact. 2nd marisa Rosalia called at home. Notified of her of the resp distress during the night and updated on pt good condition this am. Verbalized understanding. Answered all questions.
[2023-10-12 06:45] LABS: Absolute Lymphocyte Count 0.39 X10^3/uL (0.83-4.51); Absolute Neutrophil Count 7.1 X10^3/uL (2.0-7.7); Basophil# 0.01 X10^3/uL; Basophil% 0.1 % (0-1); Eosinophil# 0.01 X10^3/uL; Eosinophils% 0.1 % (0-5); Hematocrit 41.8 % (40-54); Hemoglobin 13.7 g/dL (13.0-16.5); Lymphocyte # 0.39 X10^3/ul (0.83-4.51); Lymphocyte % 5.1 % (19-41); Mean Corp Hgb Conc 32.8 g/dL (32-36); Mean Corpuscular Hgb 31.7 pg (27.0-32.0); Mean Corpuscular Volume 96.8 fL (80-94); Mean Platelet Vol. 10.4 fl (6.2-12.0); Monocyte# 0.14 X10^3/uL; Monocyte% 1.8 % (0-10); NRBC Flagged by Analyzer 0 % (0-5); Neutrophil # 7.13 X10^3/uL (2.7-7.7); Neutrophil % 92.5 % (47-70); POSITIVE DIFFERENTIAL YES; Platelet Count 246 K/mm3 (150-450); RBC Distribution Width CV 14.9 % (11.6-14.6); RBC Distribution Width SD 53.5 fl (35.1-43.9); Red Blood Count 4.32 M/mm3 (4.6-6.2); White Blood Count 7.7 K/mm3 (4.4-11.0)
[2023-10-12 07:06] LABS: Anion Gap 4 (5-15); BUN 5 mg/dL (7-18); BUN/Creat Ratio 10.5 RATIO (10-20); Calcium,Total 8.6 mg/dL (8.5-10.1); Chloride 99 mmol/L (98-107); Creatinine, Serum 0.48 mg/dL (0.70-1.30); EST Glomerular Filtration Rate 186 mL/min (>60); Est Glom Filt Rate - Afr Amer 225 mL/min (>60); Estimated Creatinine Clearance 75.88 ml/min; Glucose 126 mg/dL (74-106); Potassium 3.5 mmol/L (3.5-5.1); Sodium Level 136 mmol/L (136-145)
--- NOTE | 2023-10-12 08:59 | CASEMGMT ---
Dago Mcginnis from Palliative care emails this RN CM and states that the referral was received.
[2023-10-12] MEDS: MethylPREDNISolone 125 MG/2 ML Vial 60 MG IV ×2 (09:25→21:54)
[2023-10-12] MEDS: Pantoprazole Sodium 40 MG in 0.9% Normal Saline (100mL MB+) 100 ML 330 MG IV (09:25)
[2023-10-12] MEDS: Enoxaparin 40 MG/0.4 ML Syringe SC (09:26)
[2023-10-12] MEDS: Folic Acid 1 MG Tablet PO (09:27)
[2023-10-12] MEDS: Lactobacillis Acidophilus 2 CAP PO ×2 (09:27→21:48)
[2023-10-12] MEDS: Thiamine Hydrochloride 100 MG Tablet PO (09:27)
[2023-10-12] MEDS: Doxycycline 100 MG in Dextrose 5%-Water (250mL Bag) 250 ML 250 MG IV ×2 (10:23→22:00)
--- NOTE | 2023-10-12 11:59 | CASEMGMT ---
Addendum entered by Mary Anne Hernandez 10/12/23 13:32: SW notified patient and his daughter that [facility] TCU is full and there are no anticipated discharges. They will work on choosing other options. Mary Anne SCHILLING Original Note: SW met with patient and his daughter. SW asked about d/c plan. They were not sure yet, but they appeared to be leaning towards short term placement. They have the list of facilities. SW explained they would need to look over the list and give 3-4 preferences. SW will then take care of contacting the facilities. Their first choice is TCU. SW let them know TCU is full, but SW could double check. SW did check with TCU and [facility] said as of now she will not have any beds this week. Mary Anne SCHILLING
--- NOTE | 2023-10-12 12:01 | PN_ITS ---
Subjective Subjective Patient seen and examined. He was working with therapy. He had no active complaints. He said he felt weak still. He denied any fever, chills, palpitations, dizziness, nausea, vomiting or any other symptoms. He is still coughing. Review of systems is otherwise negative. Objective Data Objective Data Vital Signs: Vital Signs Temp Pulse Resp BP Pulse Ox O2 Del Method O2 Flow Rate 97.1 F L 99 20 H 100/76 100 Nasal Cannula 2 10/12/23 09:00 10/12/23 11:25 10/12/23 11:25 10/12/23 09:00 10/12/23 09:00 10/12/23 10:00 10/12/23 10:00 FiO2 40 10/12/23 03:03 Oxygen Flow Rate (L/min) [ 2 AMBULATING with Oxygen #1] Oxygen Flow Rate (L/min) [ 0 AMBULATING on Room Air] Oxygen Flow Rate (L/min) [At 0 REST on Room Air] Oxygen Flow Rate (L/min) 2 Oxygen Delivery Method Nasal Cannula Weight: 137 lb 12.623 oz Body Mass Index (BMI) 20.3 Intake & Output: Intake and Output for Last 24 Hours 10/10/23 10/11/23 10/12/23 23:59 23:59 23:59 Intake Total 1430 / 1430 1130 / 1230 710 / 710 Output Total 1850 / 1850 1150 / 1750 1200 / 1200 Balance -420 / -420 -20 / -520 -490 / -490 Lab / Micro Data 10/12/23 05:25 10/12/23 05:25 Labs: Laboratory Results - last 24 hr 10/12/23 05:25: WBC 7.7, RBC 4.32 L, Hgb 13.7, Hct 41.8, MCV 96.8 H, MCH 31.7, MCHC 32.8, RDW Std Deviation 53.5 H, RDW Coeff of Elidia 14.9 H, Plt Count 246, MPV 10.4, Immature Gran % (Auto) 0.400, Neut % (Auto) 92.5 H, Lymph % (Auto) 5.1 L, [place] % (Auto) 1.8, Eos % (Auto) 0.1, Baso % (Auto) 0.1, Absolute Neuts (auto) 7.1, Absolute Lymphs (auto) 0.39 L, Nucleated RBC % 0, Sodium 136, Potassium 3.5, Chloride 99, Carbon Dioxide 33.0 H, Anion Gap 4 L, BUN 5 L, Creatinine 0.48 L, Estim Creat Clear Calc 75.88, Est GFR (MDRD) Af Amer 225, Est GFR (MDRD) Non- Af 186, BUN/Creatinine Ratio 10.5, Glucose 126 H, Calcium 8.6 Micro: Microbiology 10/08/23 20:28 Blood Culture (Wb) - Venous Blood Culture - Preliminary No growth in 48 hours. 10/08/23 20:23 Blood Culture (Wb) - Venous Blood Culture - Preliminary No growth in 48 hours. 10/09/23 04:30 Urine, Clean Catch Urine Culture - Final Culture exhibits no growth. 10/08/23 20:28 Mucosa - Nose SARS-CoV-2, Influenza & RSV (PCR) - Final ABG Data ABG results: ABG 10/12/23 10/12/23 01:23 03:17 Specimen Type ART ART Sample Site L Radial L Radial pH 7.31 L 7.37 Bicarbonate Actual 37.0 H 32.7 H Total CO2 39 34 Base Excess 11 H 8 H O2 Saturation 93 L 97 O2 % 6.0 40.0 ABG pCO2 74.3 H* 56.0 H ABG pO2 76 100 Forrest Test Positive Positive Respiration Rate 14 O2 Delivery Device Cannula BiPAP Vent Mode Not entered Not entered POC PEEP 8 Crit Call To/Read Back Yes Blood Gas Notified Whom Dr. Garcia Blood Gas Notified Time 01:25:43 Radiography Diagnostic Testing: Radiology Impression Soft Tissue Neck CT 10/12/23 01:45 IMPRESSION: No mass or other significant abnormality identified in the neck. Electronically Signed: Gagandeep Garza MD at 4:15 EDT , Physical Exam Const alert, oriented x3 and no apparent distress Constitutional Narrative: frail, weak General Appearance: cooperative HEENT normocephalic, head/scalp atraumatic, moist oral mucous membranes and oropharynx normal Neck no lymphadenopathy, supple and no JVD Lymph Lymphatic: no lymphadenopathy noted and no lymphedema noted Resp Resp Narrative: diminished breath sounds bibasally, no wheezes or crackles. On 2L of oxygen by nasal canula Cardio regular rate, regular rhythm, S1 normal heart sound, S2 normal heart sound and no murmurs GI normal to inspection, nondistended, normoactive bowel sounds, soft to palpation, non-tender and non-distended Extremity normal capillary refill, no clubbing, cyanosis or edema and no calf tenderness General Extremity: no tenderness to palpation of joints or extremities Skin General Skin Exam: no breakdown Neuro CN's II-XII intact bilaterally, no focal motor deficits, no sensory deficits noted and deep tendon reflexes 2+ bilaterally Motor Exam: strength 5/5 throughout and general weakness Psych thought process normal, cooperative and affect normal Appearance: appropriate Assessment & Plan Assessment/Plan (1) COPD exacerbation: PLAN: Plan #Acute hypoxic and hypercapnic respiratory failure due to COPD exacerbation * Was off BiPAP and now on 2 to 3 L of oxygen. On IV Solu-Medrol and breathing treatments bronchodilators. * Titrate oxygen to maintain saturation above 90%. PT OT on board. Fall precautions. * Also on IV doxycycline for prophylaxis. * Will switch to PO prednisone * #History of severe alcohol abuse: * Alcohol withdrawal protocol with phenobarbital. * Monitor CIWA score. * Thiamine, folic acid and Multi-Veronica. #HFrEF * Has known EF of 40%. Not in exacerbation. On p.o. Lasix. Also on lisinopril. * Monitor intake and output. * #Hyperlipidemia: on statin DVT prophylaxis; SCDs Disposition: very frail and weak. Will benefit from placement. Charges/Coding Visit Charges Inpatient E&M: 83127 Subs Hosp L2
[2023-10-12] MEDS: Ensure Plus High Protein 120 ML LIQUID PO (14:38)
[2023-10-12] MEDS: Atorvastatin Calcium 40 MG Tablet PO (21:48)
[2023-10-12] MEDS: 0.9% Saline Lock 10 ML Syringe IV (21:59)
[2023-10-13] VITALS (12 sets, daily range): BP systolic 98–120; BP diastolic 63–86; PULSE 75–145; RESP 14–38; TEMP 36.2–36.6; O2SAT 50–100; BMI 20.5
[2023-10-13] MEDS: Phenobarbital 32.4 MG Tablet PO (02:17)
[2023-10-13] MEDS: Menthol/Lanolin/Calamine/Znox 113 GM Tube 1 APPLIC TOPICAL ×3 (05:53→22:34)
[2023-10-13] MEDS: Ipratropium/Albuterol Sulfate 3 ML AMPUL.NEB INHALATION ×3 (07:07→20:22)
[2023-10-13 08:25] LABS: Absolute Lymphocyte Count 1.14 X10^3/uL (0.83-4.51); Absolute Neutrophil Count 7.2 X10^3/uL (2.0-7.7); Basophil# 0.02 X10^3/uL; Basophil% 0.2 % (0-1); Eosinophil# 0.01 X10^3/uL; Eosinophils% 0.1 % (0-5); Hematocrit 39.5 % (40-54); Lymphocyte # 1.14 X10^3/ul (0.83-4.51); Lymphocyte % 12.4 % (19-41); Mean Corp Hgb Conc 32.9 g/dL (32-36); Mean Corpuscular Hgb 31.4 pg (27.0-32.0); Mean Corpuscular Volume 95.4 fL (80-94); Mean Platelet Vol. 10.1 fl (6.2-12.0); Monocyte# 0.84 X10^3/uL; Monocyte% 9.1 % (0-10); NRBC Flagged by Analyzer 0 % (0-5); Neutrophil # 7.17 X10^3/uL (2.7-7.7); Neutrophil % 77.7 % (47-70); Platelet Count 228 K/mm3 (150-450); RBC Distribution Width SD 52.4 fl (35.1-43.9); Red Blood Count 4.14 M/mm3 (4.6-6.2); White Blood Count 9.2 K/mm3 (4.4-11.0)
[2023-10-13] MEDS: Lactobacillis Acidophilus 2 CAP PO ×2 (08:51→22:34)
[2023-10-13] MEDS: Thiamine Hydrochloride 100 MG Tablet PO (08:51)
[2023-10-13] MEDS: Folic Acid 1 MG Tablet PO (08:51)
[2023-10-13] MEDS: Enoxaparin 40 MG/0.4 ML Syringe SC (08:51)
[2023-10-13 08:57] LABS: Anion Gap 2 (5-15); BUN 8 mg/dL (7-18); BUN/Creat Ratio 20.2 RATIO (10-20); Calcium,Total 8.4 mg/dL (8.5-10.1); Chloride 99 mmol/L (98-107); EST Glomerular Filtration Rate 229 mL/min (>60); Est Glom Filt Rate - Afr Amer 277 mL/min (>60); Estimated Creatinine Clearance 78.88 ml/min; Glucose 94 mg/dL (74-106); Sodium Level 135 mmol/L (136-145)
--- NOTE | 2023-10-13 09:25 | CASEMGMT ---
SW met with patient. Patient and his daughter marked their preferences on the list. Choices are as follows: 1. TCU, [facility], [facility], [facility] [place], [place], [facility], [place], [facility], [place] [facility], and [facility]. TCU is full and family is aware. LIAM asked Alka to send a referral to [facility] and [facility]. Await responses. Plan: d/c to SNF pending accepting facility. Mary Anne SCHILLING
[2023-10-13] MEDS: Doxycycline 100 MG in Dextrose 5%-Water (250mL Bag) 250 ML 250 MG IV (09:31)
[2023-10-13] MEDS: MethylPREDNISolone 125 MG/2 ML Vial 60 MG IV ×2 (09:31→23:36)
[2023-10-13] MEDS: 0.9% Saline Lock 10 ML Syringe IV (09:32)
[2023-10-13] MEDS: Ensure Plus High Protein 120 ML LIQUID PO ×2 (09:32→14:07)
--- NOTE | 2023-10-13 09:35 | CASEMGMT ---
Addendum entered by Alka Valderrama 10/13/23 10:30: [facility] declined referral. SW updated. Alka Valderrama DC Planning Asst. Original Note: Discharge Planning Referral sent via [facility] to [facility] and [facility]. Alka Valderrama DC Planning Asst.
[2023-10-13] MEDS: Pantoprazole Sodium 40 MG in 0.9% Normal Saline (100mL MB+) 100 ML 330 MG IV (11:58)
--- NOTE | 2023-10-13 12:10 | ADDICTION ---
PT plans to f/u with outpatient AOD treatment. TW completed Vivitrol Assessment. He meets criteria and would like the shot. Pt reports that he will follow up with [facility] for tx and the ongoing shot. He reports that he does not need transportation post d/c from [facility].
--- NOTE | 2023-10-13 13:39 | PN_ITS ---
Subjective Subjective Patient seen and examined. He feels well and has no complaints today. Review of systems is otherwise negative. He has remained hemodynamically stable. Objective Data Objective Data Vital Signs: Vital Signs Temp Pulse Resp BP Pulse Ox O2 Del Method O2 Flow Rate 98 F 75 16 102/73 100 Nasal Cannula 2 10/13/23 08:38 10/13/23 08:38 10/13/23 08:38 10/13/23 08:38 10/13/23 08:38 10/13/23 08:44 10/13/23 08:44 FiO2 99 10/12/23 15:00 Oxygen Flow Rate (L/min) [ 2 AMBULATING with Oxygen #1] Oxygen Flow Rate (L/min) [ 0 AMBULATING on Room Air] Oxygen Flow Rate (L/min) [At 0 REST on Room Air] Oxygen Flow Rate (L/min) 2 Oxygen Delivery Method Nasal Cannula Weight: 139 lb 1.787 oz Body Mass Index (BMI) 20.5 Intake & Output: Intake and Output for Last 24 Hours 10/11/23 10/12/23 10/13/23 23:59 23:59 23:59 Intake Total 1130 / 1230 970 / 970 1250 / 1250 Output Total 1150 / 1750 1700 / 1700 900 / 900 Balance -20 / -520 -730 / -730 350 / 350 Lab / Micro Data 10/13/23 07:46 10/13/23 07:46 Labs: Laboratory Results - last 24 hr 10/13/23 07:46: WBC 9.2, RBC 4.14 L, Hgb 13.0, Hct 39.5 L, MCV 95.4 H, MCH 31.4, MCHC 32.9, RDW Std Deviation 52.4 H, RDW Coeff of Elidia 15.0 H, Plt Count 228, MPV 10.1, Immature Gran % (Auto) 0.500, Neut % (Auto) 77.7 H, Lymph % (Auto) 12.4 L, [place] % (Auto) 9.1, Eos % (Auto) 0.1, Baso % (Auto) 0.2, Absolute Neuts (auto) 7.2, Absolute Lymphs (auto) 1.14, Nucleated RBC % 0, Sodium 135 L, Potassium 4.0, Chloride 99, Carbon Dioxide 34.0 H, Anion Gap 2 L, BUN 8, Creatinine 0.40 L , Estim Creat Clear Calc 78.88, Est GFR (MDRD) Af Amer 277, Est GFR (MDRD) Non- Af 229, BUN/Creatinine Ratio 20.2 H, Glucose 94, Calcium 8.4 L Micro: Microbiology 10/08/23 20:28 Blood Culture (Wb) - Venous Blood Culture - Preliminary No growth in 48 hours. 10/08/23 20:23 Blood Culture (Wb) - Venous Blood Culture - Preliminary No growth in 48 hours. 10/09/23 04:30 Urine, Clean Catch Urine Culture - Final Culture exhibits no growth. 10/08/23 20:28 Mucosa - Nose SARS-CoV-2, Influenza & RSV (PCR) - Final Physical Exam Const alert, oriented x3, no apparent distress and average body habitus Constitutional Narrative: frail, weak General Appearance: cooperative HEENT normocephalic, head/scalp atraumatic, hearing grossly normal bilaterally, moist oral mucous membranes and oropharynx normal Eyes PERRL and EOMs intact bilaterally Neck no lymphadenopathy, supple and no JVD Lymph Lymphatic: no lymphadenopathy noted and no lymphedema noted Resp Resp Narrative: diminished breath sounds bibasally, no wheezes or crackles. On 2L of oxygen by nasal canula Cardio regular rate, regular rhythm, S1 normal heart sound, S2 normal heart sound and no murmurs GI normal to inspection, nondistended, normoactive bowel sounds, soft to palpation, non-tender and non-distended Extremity normal to inspection, full ROM, normal capillary refill, no clubbing, cyanosis or edema and no calf tenderness General Extremity: no tenderness to palpation of joints or extremities Skin General Skin Exam: no breakdown Neuro CN's II-XII intact bilaterally, moves all extremities, no focal motor deficits, no sensory deficits noted and deep tendon reflexes 2+ bilaterally Sensorium / Orientation: awake, alert, oriented to person and oriented to place Speech: speech normal Motor Exam: strength 5/5 throughout and general weakness Psych thought process normal, cooperative and affect normal Appearance: appropriate Assessment & Plan Assessment/Plan (1) COPD exacerbation: PLAN: Plan #Acute hypoxic and hypercapnic respiratory failure due to COPD exacerbation * Was off BiPAP and now on 2L of oxygen. On IV Solu-Medrol and breathing treatments bronchodilators. * Titrate oxygen to maintain saturation above 90%. PT OT on board. Fall precautions. * on IV doxycycline; completed a 5 day course, so will dc today * Will switch to PO prednisone * #History of severe alcohol abuse: * Alcohol withdrawal protocol with phenobarbital. * Monitor CIWA score. * Thiamine, folic acid and Multi-Veronica. #HFrEF * Has known EF of 40%. Not in exacerbation. On p.o. Lasix. Also on lisinopril. * Monitor intake and output. * #Hyperlipidemia: on statin DVT prophylaxis; SCDs Disposition: very frail and weak. Awaiting placement Charges/Coding Visit Charges Inpatient E&M: 09480 Subs Hosp L2
--- NOTE | 2023-10-13 13:43 | ST ---
Vocal Fold Adduction Vocal Fold Abduction Inhalation
--- NOTE | 2023-10-13 14:20 | CASEMGMT ---
Addendum entered by Mary Anne Hernandez 10/13/23 16:10: TCU is able to take patient. SW let patient and his daughter know this information. Plan: d/c to [facility] TCU when medically ready. Mary Anne SCHILLING Original Note: [facility] and [facility] have declined patient. SW asked Alka to send a referral to [facility]. A bed opened up in TCU which was patient's first choice. SW asked Kaila to review referral. Mary Anne SCHILLING
--- NOTE | 2023-10-13 15:18 | SP.FEES_ITS ---
FEES Patient Information Date of Evaluation: 10/13/23 Time of Evaluation: 12:20 DIAGNOSIS:: COPD exacerbation J44.9 Referring Physician: Gautam Wesley Staff Providing this Care/Treatment:: NAMAN Direct Billable Minutes: 115 Subjective: Subjective:: Pt reports no current complaints for diet tolerance of Easy to Chew textures / Thin liquids - Distant supervision, meds whole in applesauce. PMH: PMH: COPD, tobacco and alcohol abuse, medical noncompliance, agoraphobia. The patient presented to [facility] ED 10/08/23 with SOB and wheezing. He has agoraphobia and has refused to leave his house for years. His symptoms began ~2 weeks ago with a gradual onset of dyspnea on exertion progressing to SOB at rest. Despite severe wheezing, he continued to smoke and drink alcohol. His sisters visited and EMS was activated and he had pulse ox of 70%, so he was brought to the ED. He was admitted to ICU to manage acute exacerbation of COPD complicated by clinical evidence of acute hypoxic respiratory failure requiring BiPAP and heliox in the setting of ongoing tobacco abuse, alcohol abuse, and medical noncompliance. He was transitioned to nasal cannula 10/09/23, and RN had concerns for wet vocal quality and coughing with oral intake, so he was recommended for ST consult prior to diet advancement. After BSE, the patient was recommended for Easy to Chew textures / Thin liquids with distant supervision. During stay, he was recommended for FEES to further assess concerns for aspiration. Current Diet: Drinks/Liquids:: Thin Foods:: Easy to chew Medication Administration:: other (see comment) Comment:: Whole in puree, Distant supervision Respiratory Status: Observation:: 2L via nasal cannula Dentation/Oral Hygiene: Observations:: Upper and lower dentures Vocal Quality: Observations:: Hoarse, Raspy and Breathy Cognition: Observations:: WNL Dysphagia: TX/DX History:: Yes Fiberoptic Endoscope: Size: 3.4 mm Nare:: Right Comments: Scope was passed through the right nare 2X during the evaluation without difficulty and with mild nasal mucus. Position During FEES: Position During FEES:: Upright Location: In Chair Anatomy: + Velopharyngeal Port Observations Movement: Yes +Nasopharynx Observations +Oropharynx Observations: +Hypopharynx Observation: Comments:: Nasal mucosa appeared pink and moist. Posterior pharyngeal wall appeared red and edematous with cobblestoning suspicious for reflux. Oropharynx, hypopharynx, and laryngeal vestibule are red and have moderate-severe edema throughout. Edema is most severe in the ventricular folds, arytenoids, and interarytenoid tissue. Unable to visualize the R vocal fold due to a large, white, irregular-textured excrescence extending from the interarytenoid tissue, medial to the R arytenoid, along the medial edge of ventricular folds, on the anterior commissure, and finally extending to the anterior 1/3 of the L vocal fold. Due to size of the excrescence, the PHYSICIST LIGHT AND OPTICS had limited view the subglottis; however, during inhalation, PHYSICIST LIGHT AND OPTICS did briefly view irregular white excresence in the R portion of the subglottis, as well. During abduction of the vocal folds, only the posterior 1/3 the glottis appeared open, but was also somewhat obstructed by the excrescence. Posterior 2/3 of the R vocal fold appears edematuous. During vocal fold adduction, the arytenoids were unable to approximate, likely due to presence of large excrescence described above. Secretions: Comment:: No secretions observed in the pharynx. Penetration-Aspiration Scale Penetration-Aspiration Scale Swallowing: :: Trials administered: PHYSICIST LIGHT AND OPTICS is unable to definitively rule out aspiration for all the trials administered due to limited view of the subglottis during the evaluation. PHYSICIST LIGHT AND OPTICS administered thin liquids via straw (3 trials of blue powerade, 1 trial of vanilla ensure) 4X with trace laryngeal penetration 1X to the vocal folds without ejection (PAS - 5). <5% residue on anterior commisure, 10% residue in R pyriforms after single sip of thin liquids via straw, <5% of ensure residue coating the hypopharynx, 10% of ensure residue on the posterior pharyngeal wall. Swallow onset appeared timely with thin liquids and no premature posterior loss was observed. He also consumed 1 bite of pudding and 1 bite of cookie with no laryngeal penetration observed. PAS of 1 with pudding and cookie. 10% of pudding residue was in the R pyriform after the swallow. Swallow onset of pudding occurred with <1/2 of bolus in the L pyriforms during swallow onset. Liquid wash effectively cleared pudding residue. 10% of cookie residue in L and R pyriforms with trace coating of residue of oropharynx and hypopharynx. Bubbling of cookie residue in R pyriforms suspicious of retrograde flow of bolus through UES. Swallowing Trials: Swallowing Trials Results Below: Recommendations: Recommended Diet Grade & Liquid Drinks/Liquids:: Thin Foods:: Easy to chew Comment: whole in puree Supervision/Cues: Distant Recommended Compensatory Strategies: Small bites/sips, slow rate, alternate bites/sips, intermittent cough and re-swallow Comment: TBD Prognosis: Prognosis: Fair Education: Education Completed: 1. Described result of evaluation. and 7. Pt requires further education on strategies & risks.
--- NOTE | 2023-10-13 15:27 | SP.FEES_ITS ---
FEES Patient Information Date of Evaluation: 10/13/23 Time of Evaluation: 12:20 DIAGNOSIS:: COPD exacerbation J44.1 Staff Providing this Care/Treatment:: NAMAN Direct Billable Minutes: 120 Subjective: Subjective:: Pt reports no current complaints for diet tolerance of Easy to Chew textures / Thin liquids - Distant supervision, meds whole in applesauce. PMH: PMH: COPD, tobacco and alcohol abuse, medical noncompliance, agoraphobia. The patient presented to [facility] ED 10/08/23 with SOB and wheezing. He has agoraphobia and has refused to leave his house for years. His symptoms began ~2 weeks ago with a gradual onset of dyspnea on exertion progressing to SOB at rest. Despite severe wheezing, he continued to smoke and drink alcohol. His sisters visited and EMS was activated and he had pulse ox of 70%, so he was brought to the ED. He was admitted to ICU to manage acute exacerbation of COPD complicated by clinical evidence of acute hypoxic respiratory failure requiring BiPAP and heliox in the setting of ongoing tobacco abuse, alcohol abuse, and medical noncompliance. He was transitioned to nasal cannula 10/09/23, and RN had concerns for wet vocal quality and coughing with oral intake, so he was recommended for ST consult prior to diet advancement. After BSE, the patient was recommended for Easy to Chew textures / Thin liquids with distant supervision. During stay, he was recommended for FEES to further assess concerns for aspiration. Current Diet: Drinks/Liquids:: Thin Foods:: Easy to chew Medication Administration:: other (see comment) Comment:: Whole in puree, Distant supervision Respiratory Status: Observation:: 2L via nasal cannula Dentation/Oral Hygiene: Observations:: Upper and lower dentures Vocal Quality: Observations:: Hoarse, Raspy and Breathy Cognition: Observations:: WNL Dysphagia: TX/DX History:: Yes Fiberoptic Endoscope: Size: 3.4 mm Nare:: Right Comments: Scope was passed through the right nare 2X during the evaluation without difficulty and with mild nasal mucus. Position During FEES: Position During FEES:: Upright Location: In Chair Anatomy: + Velopharyngeal Port Observations Movement: Yes +Nasopharynx Observations +Oropharynx Observations: +Hypopharynx Observation: Comments:: Nasal mucosa appeared pink and moist. Posterior pharyngeal wall appeared red and edematous with cobblestoning suspicious for reflux. Oropharynx, hypopharynx, and laryngeal vestibule are red and have moderate-severe edema throughout. Edema is most severe in the ventricular folds, arytenoids, and interarytenoid tissue. Unable to visualize the R vocal fold due to a large, white, irregular-textured excrescence extending from the interarytenoid tissue, medial to the R arytenoid, along the medial edge of ventricular folds, on the anterior commissure, and finally extending to the anterior 1/3 of the L vocal fold. Due to size of the excrescence, the PLASTIC EXTRUSION OPERATOR had limited view the subglottis; however, during inhalation, PLASTIC EXTRUSION OPERATOR did briefly view irregular white excresence in the R portion of the subglottis, as well. During abduction of the vocal folds, only the posterior 1/3 the glottis appeared open, but was also somewhat obstructed by the excrescence. Posterior 2/3 of the R vocal fold appears edematuous. During vocal fold adduction, the arytenoids were unable to approximate, likely due to presence of large excrescence described above. Secretions: Comment:: No secretions observed in the pharynx. Penetration-Aspiration Scale Penetration-Aspiration Scale Swallowing: :: Trials administered: PLASTIC EXTRUSION OPERATOR is unable to definitively rule out aspiration for all the trials administered due to limited view of the subglottis during the evaluation. PLASTIC EXTRUSION OPERATOR administered thin liquids via straw (3 trials of blue powerade, 1 trial of vanilla ensure) 4X with trace laryngeal penetration 1X to the vocal folds without ejection (PAS - 5). <5% residue on anterior commisure, 10% residue in R pyriforms after single sip of thin liquids via straw, <5% of ensure residue coating the hypopharynx, 10% of ensure residue on the posterior pharyngeal wall. Swallow onset appeared timely with thin liquids and no premature posterior loss was observed. He also consumed 1 bite of pudding and 1 bite of cookie with no laryngeal penetration observed. PAS of 1 with pudding and cookie. 10% of pudding residue was in the R pyriform after the swallow. Swallow onset of pudding occurred with <1/2 of bolus in the L pyriforms during swallow onset. Liquid wash effectively cleared pudding residue. 10% of cookie residue in L and R pyriforms with trace coating of residue of oropharynx and hypopharynx. Bubbling of cookie residue in R pyriforms suspicious of retrograde flow of bolus through UES. Treatment Diagnosis and Impressions: The patient presents with moderate oropharyngeal dysphagia (R13.12) characterized by... -Decreased airway closure with trace laryngeal penetration of thin liquids without full ejection. He would benefit from intermittent cough and re-swallow to decrease risk for aspiration. -Mild pharyngeal residues of pudding and cookie. Liquid wash effectively cleared residues of pudding. Brown out indicative of weak pharyngeal contraction. -Bubbling in pyriform residue of cookie concerning for retrograde flow of bolus through UES. Due to presence of large white excrescence in the laryngeal vestibule, PLASTIC EXTRUSION OPERATOR is recommending inpatient ENT consult and CT of the neck. Due to concern for retrograde flow of bolus through the UES and cobblestoning on posterior pharyngeal wall, will recommend GI consult. Swallowing Trials: Swallowing Trials Results Below: Recommendations: Recommended Diet Grade & Liquid Drinks/Liquids:: Thin Foods:: Easy to chew Comment: whole in puree Supervision/Cues: Distant Recommended Compensatory Strategies: Small bites/sips, slow rate, alternate bites/sips, intermittent cough and re-swallow Comment: Will recommend continued ST services during inpatient stay, as well as at next level of care to implement oropharyngeal strengthening (effortful swallow, Yesenia, CTAR), train in recommended strategies to decrease risk for aspiration, and for ongoing assessment of diet tolerance. Prognosis: Prognosis: Fair Education: Education Completed: 1. Described result of evaluation. and 7. Pt requires further education on strategies & risks.
--- NOTE | 2023-10-13 15:38 | CHAPLAIN ---
Type of Pastoral Visit _x__ Initial Visit ___ Follow-up Visit ___ On-call Visit ___ General Patient Visit ___ Spiritual Assessment ___ Family Conference ___ Bereavement ___ Rapid Response ___ Code Blue ___ Other (describe below) Pastoral Care Referral From _x__ Patient ___ Family ___ Nurse ___ Physician ___ Orderlies Teacher ___ Television Production Technician ___ Other (describe below) Sacrament/Intervention _x__ Active listening ___ Anointing ___ Mormon ___ Bereavement ___ Communion ___ Diana exploration ___ ___ Life review _x__ Prayer ___ Reconciliation ___ Sacrament of Sick ___ Supportive presence ___ Wedding ___ Other (describe below) Pastoral Comments patient is sitting up in chair and reports that he is doing much better than when he came into hospital; pt recounts how he 'hadn't seen this coming but it must have been working its way in for a long time; pt is slow to respond but answers questions; family members are in the room so pt may be hesitant to talk freely; prayer is accepted
[2023-10-13] MEDS: Atorvastatin Calcium 40 MG Tablet PO (22:34)
--- NOTE | 2023-10-13 23:14 | PCM.HOSP.N ---
Hospitalist Note Noted stridor by nursing. Started on treatment with Heliox and was doing better. Pt seen by me and was breathing comfortably. Reviewed CT of neck, that was unremarkable. Images by ST showed some mass beyond vocal cords. Confimed code status with patient: Full code. Will give a dose of 60mg of IV methylpred. If stridor recurs may transfer pt to ICU in case he would have airway collapse.
--- NOTE | 2023-10-13 23:30 | NURSING ---
When trying to ambulate pt to bathroom pt started having significant episode of stridor with O2 saturation down to 50% on room air. Put bipap back on at 60% FIo2 with O2 coming back up to 100%. Respiratory therapist came and gave pt heliox treatment. MD up to see pt and ordered x1 dose of IV solu-medrol and started pt on mucinex BID. Pt resting in bed comfortably on 3L nasal cannula with O2 saturation at 98%
[2023-10-13] MEDS: guaiFENesin 600 MG Tablet PO (23:35)
[2023-10-14] VITALS (9 sets, daily range): BP systolic 101–133; BP diastolic 43–75; PULSE 84–94; RESP 12–20; TEMP 36–36.8; O2SAT 96–100; BMI 20.6
[2023-10-14 06:48] LABS: Absolute Lymphocyte Count 0.88 X10^3/uL (0.83-4.51); Absolute Neutrophil Count 6.6 X10^3/uL (2.0-7.7); Basophil# 0.01 X10^3/uL; Basophil% 0.1 % (0-1); Hematocrit 40.5 % (40-54); Lymphocyte # 0.88 X10^3/ul (0.83-4.51); Lymphocyte % 11.2 % (19-41); Mean Corp Hgb Conc 32.1 g/dL (32-36); Mean Corpuscular Hgb 30.7 pg (27.0-32.0); Mean Corpuscular Volume 95.5 fL (80-94); Mean Platelet Vol. 9.7 fl (6.2-12.0); Monocyte# 0.38 X10^3/uL; Monocyte% 4.8 % (0-10); NRBC Flagged by Analyzer 0 % (0-5); Neutrophil # 6.56 X10^3/uL (2.7-7.7); Neutrophil % 83.1 % (47-70); Platelet Count 234 K/mm3 (150-450); RBC Distribution Width CV 15.1 % (11.6-14.6); RBC Distribution Width SD 53.4 fl (35.1-43.9); Red Blood Count 4.24 M/mm3 (4.6-6.2); White Blood Count 7.9 K/mm3 (4.4-11.0)
[2023-10-14] MEDS: Ipratropium/Albuterol Sulfate 3 ML AMPUL.NEB INHALATION ×5 (07:25→22:47)
[2023-10-14 08:06] LABS: Anion Gap 1 (5-15); BUN 9 mg/dL (7-18); BUN/Creat Ratio 17.5 RATIO (10-20); Calcium,Total 8.7 mg/dL (8.5-10.1); Chloride 99 mmol/L (98-107); Creatinine, Serum 0.51 mg/dL (0.70-1.30); EST Glomerular Filtration Rate 170 mL/min (>60); Est Glom Filt Rate - Afr Amer 206 mL/min (>60); Estimated Creatinine Clearance 79.25 ml/min; Glucose 111 mg/dL (74-106); Potassium 4.4 mmol/L (3.5-5.1); Sodium Level 135 mmol/L (136-145)
[2023-10-14] MEDS: Pantoprazole Sodium 40 MG in 0.9% Normal Saline (100mL MB+) 100 ML 330 MG IV (11:20)
--- NOTE | 2023-10-14 11:56 | PCM.PN.BLA ---
Progress Note Asked to see the patient at the request of Dr. Chris for the abnormality found on fees. History of present illness: The patient is a 68-year-old white male who was admitted to the hospital on 10/08/2023 with exacerbation of COPD. For the last 2 days he has had intermittent stridor that has been treated with BiPAP. This has relieved the stridor. He reports that he had a hoarse voice for the past 6 months that gradually came on. He has intermittent right ear pain. He denies any dysphagia, odynophagia or weight loss. Past medical history CHF COPD alcohol abuse tobacco abuse Allergies: No known drug allergies Medications: Albuterol ipratropium, atorvastatin, dicyclomine, doxycycline, Lovenox, folate, gabapentin, guaifenesin, hydroxyzine, lisinopril, loperamide, nicotine patch, Zofran, pantoprazole, thiamine, trazodone. Social history: The patient is an [id number] smoker. Positive alcohol abuse Family history: Noncontributory Review of systems negative Physical exam: The patient is awake alert in no acute distress. There is no stridor. His voice is quite hoarse. He is cachectic. Nasal exam reveals deviation septum to the left. Mouth oropharynx reveals no masses ulceration or lesions. Neck is supple no adenopathy. Flexible laryngoscopy: 4% topical lidocaine was sprayed in the patient's right nasal cavity. After sufficient anesthesia flexible scope inserted the patient's nose into the nasopharynx. The nasopharynx base of tongue and epiglottis are normal. The piriform sinuses are normal. He has a exophytic right false vocal cord mass extending to involve the right glottis and then extending into the subglottis. He has very poor right vocal cord motion. The mass impacting his glottic inlet. CT scan reveals a an irregular mass on the right false vocal cord involving the glottis. 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 Plan: The patient will need a direct laryngoscopy with biopsy in the operating room in the very near future. I will discuss with the hospitalist the timing of this procedure.
[2023-10-14] MEDS: guaiFENesin 600 MG Tablet PO ×2 (15:21→21:34)
[2023-10-14] MEDS: Lactobacillis Acidophilus 2 CAP PO ×2 (15:22→21:34)
[2023-10-14] MEDS: Folic Acid 1 MG Tablet PO (15:22)
[2023-10-14] MEDS: predniSONE 20 MG Tablet 40 MG PO (15:22)
[2023-10-14] MEDS: Thiamine Hydrochloride 100 MG Tablet PO (15:23)
[2023-10-14] MEDS: Menthol/Lanolin/Calamine/Znox 113 GM Tube 1 APPLIC TOPICAL (15:24)
[2023-10-14] MEDS: Ensure Plus High Protein 120 ML LIQUID PO (18:10)
[2023-10-14] MEDS: Atorvastatin Calcium 40 MG Tablet PO (21:34)
[2023-10-15 01:19] VITALS: PULSE 85; RESP 14; RESP 17; O2SAT 100
[2023-10-15 02:08] VITALS: BMI 20.9
[2023-10-15 02:53] VITALS: BP 125/76; PULSE 76; RESP 16; TEMP 36.4; O2SAT 100
[2023-10-15 04:45] VITALS: O2SAT 99
[2023-10-15 07:15] LABS: Absolute Lymphocyte Count 2.16 X10^3/uL (0.83-4.51); Absolute Neutrophil Count 6.2 X10^3/uL (2.0-7.7); Basophil# 0.03 X10^3/uL; Basophil% 0.3 % (0-1); Eosinophil# 0.07 X10^3/uL; Eosinophils% 0.7 % (0-5); Hematocrit 38.3 % (40-54); Hemoglobin 12.6 g/dL (13.0-16.5); Lymphocyte # 2.16 X10^3/ul (0.83-4.51); Lymphocyte % 22.7 % (19-41); Mean Corp Hgb Conc 32.9 g/dL (32-36); Mean Corpuscular Hgb 31.3 pg (27.0-32.0); Mean Corpuscular Volume 95.3 fL (80-94); Mean Platelet Vol. 9.6 fl (6.2-12.0); Monocyte# 1.03 X10^3/uL; Monocyte% 10.8 % (0-10); NRBC Flagged by Analyzer 0 % (0-5); Neutrophil # 6.17 X10^3/uL (2.7-7.7); Neutrophil % 65.1 % (47-70); Platelet Count 225 K/mm3 (150-450); RBC Distribution Width CV 15.2 % (11.6-14.6); RBC Distribution Width SD 53.1 fl (35.1-43.9); Red Blood Count 4.02 M/mm3 (4.6-6.2); White Blood Count 9.5 K/mm3 (4.4-11.0)
[2023-10-15 07:19] VITALS: PULSE 78; RESP 18; O2SAT 2
[2023-10-15] MEDS: Ipratropium/Albuterol Sulfate 3 ML AMPUL.NEB INHALATION ×2 (07:19→10:58)
[2023-10-15 07:39] LABS: Anion Gap 2 (5-15); BUN 12 mg/dL (7-18); BUN/Creat Ratio 28.3 RATIO (10-20); Calcium,Total 8.6 mg/dL (8.5-10.1); Chloride 101 mmol/L (98-107); Creatinine, Serum 0.42 mg/dL (0.70-1.30); EST Glomerular Filtration Rate 212 mL/min (>60); Est Glom Filt Rate - Afr Amer 257 mL/min (>60); Estimated Creatinine Clearance 80.38 ml/min; Glucose 100 mg/dL (74-106); Potassium 3.5 mmol/L (3.5-5.1); Sodium Level 137 mmol/L (136-145)
[2023-10-15 09:27] VITALS: BP 120/78; PULSE 98; RESP 16; TEMP 36.6; O2SAT 100
[2023-10-15] MEDS: guaiFENesin 600 MG Tablet PO (09:35)
[2023-10-15] MEDS: Folic Acid 1 MG Tablet PO (09:35)
[2023-10-15] MEDS: Lisinopril 5 MG Tablet PO (09:35)
[2023-10-15] MEDS: predniSONE 20 MG Tablet 40 MG PO (09:35)
[2023-10-15] MEDS: Enoxaparin 40 MG/0.4 ML Syringe SC (09:36)
[2023-10-15] MEDS: Pantoprazole Sodium 40 MG in 0.9% Normal Saline (100mL MB+) 100 ML 330 MG IV (09:38)
--- NOTE | 2023-10-15 09:58 | PCM.PROGNOTE ---
Subjective Subjective LATE ENTRY NOTE FOR 10/14/2023 Patient was seen on 10/14/2023. He had no active complaints then and had an uneventful night. Review of systems otherwise negative. He was awaiting ENT evaluation. He had had an episode of stridor the night before and had required heliox which helped with the stridor. Objective Data Objective Data Vital Signs: Vital Signs Temp Pulse Resp BP Pulse Ox O2 Del Method O2 Flow Rate 97.9 F 98 16 120/78 100 Nasal Cannula 3 10/15/23 09:27 10/15/23 09:27 10/15/23 09:27 10/15/23 09:27 10/15/23 09:27 10/15/23 09:27 10/15/23 09:27 FiO2 30 10/15/23 02:55 Oxygen Flow Rate (L/min) [ 2 AMBULATING with Oxygen #1] Oxygen Flow Rate (L/min) [ 0 AMBULATING on Room Air] Oxygen Flow Rate (L/min) [At 0 REST on Room Air] Oxygen Flow Rate (L/min) 3 Oxygen Delivery Method Nasal Cannula Weight: 141 lb 12.116 oz Body Mass Index (BMI) 20.9 Intake & Output: Intake and Output for Last 24 Hours 10/13/23 10/14/23 10/15/23 23:59 23:59 23:59 Intake Total 1700 / 1700 1085 / 1085 50 / 50 Output Total 1100 / 1100 1450 / 1450 Balance 600 / 600 -365 / -365 50 / 50 Lab / Micro Data 10/15/23 07:00 10/15/23 07:00 Labs: Laboratory Results - last 24 hr 10/15/23 07:00: WBC 9.5, RBC 4.02 L, Hgb 12.6 L, Hct 38.3 L, MCV 95.3 H, MCH 31.3, MCHC 32.9, RDW Std Deviation 53.1 H, RDW Coeff of Elidia 15.2 H, Plt Count 225, MPV 9.6, Immature Gran % (Auto) 0.400, Neut % (Auto) 65.1, Lymph % (Auto) 22.7, [place] % (Auto) 10.8 H, Eos % (Auto) 0.7, Baso % (Auto) 0.3, Absolute Neuts (auto) 6.2, Absolute Lymphs (auto) 2.16, Nucleated RBC % 0, Sodium 137, Potassium 3.5, Chloride 101, Carbon Dioxide 34.0 H, Anion Gap 2 L, BUN 12, Creatinine 0.42 L, Estim Creat Clear Calc 80.38, Est GFR (MDRD) Af Amer 257, Est GFR (MDRD) Non-Af 212, BUN/Creatinine Ratio 28.3 H, Glucose 100, Calcium 8.6 Micro: Microbiology 10/08/23 20:28 Blood Culture (Wb) - Venous Blood Culture - Final No growth in 5 days. 10/08/23 20:23 Blood Culture (Wb) - Venous Blood Culture - Final No growth in 5 days. 10/09/23 04:30 Urine, Clean Catch Urine Culture - Final Culture exhibits no growth. 10/08/23 20:28 Mucosa - Nose SARS-CoV-2, Influenza & RSV (PCR) - Final Physical Exam Const alert, oriented x3, no apparent distress and average body habitus Constitutional Narrative: frail, weak General Appearance: cooperative HEENT normocephalic, head/scalp atraumatic, hearing grossly normal bilaterally, moist oral mucous membranes and oropharynx normal Eyes PERRL and EOMs intact bilaterally Neck no lymphadenopathy, supple and no JVD Lymph Lymphatic: no lymphadenopathy noted and no lymphedema noted Resp Resp Narrative: diminished breath sounds bibasally, no wheezes or crackles. On 2L of oxygen by nasal canula Auscultation: wheezes Cardio regular rate, regular rhythm, S1 normal heart sound, S2 normal heart sound and no murmurs GI normal to inspection, nondistended, normoactive bowel sounds, soft to palpation, non-tender and non-distended Extremity normal to inspection, full ROM, normal capillary refill, no clubbing, cyanosis or edema and no calf tenderness General Extremity: no tenderness to palpation of joints or extremities Skin Skin Narrative: P General Skin Exam: no breakdown Neuro CN's II-XII intact bilaterally, moves all extremities, no focal motor deficits, no sensory deficits noted and deep tendon reflexes 2+ bilaterally Sensorium / Orientation: awake, alert, oriented to person and oriented to place Speech: speech normal Motor Exam: strength 5/5 throughout and general weakness Psych thought process normal, cooperative and affect normal Appearance: appropriate Assessment & Plan Assessment/Plan (1) COPD exacerbation: PLAN: Plan #Acute hypoxic and hypercapnic respiratory failure due to COPD exacerbation Was off BiPAP and now on 2L of oxygen. On IV Solu-Medrol and breathing treatments bronchodilators. Titrate oxygen to maintain saturation above 90%. PT OT on board. Fall precautions. completed a 5 day course of IV doxycycline on PO prednisone. 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 Recommends patient should have a biopsy but this can only be done by ENT on Thursday. Patient will therefore be discharged to follow-up with the ENT on Thursday for biopsy of the vocal cord mass. #History of severe alcohol abuse: Alcohol withdrawal protocol with phenobarbital. Monitor CIWA score. Thiamine, folic acid and Multi-Veronica. #HFrEF Has known EF of 40%. Not in exacerbation. On p.o. Lasix. Also on lisinopril. Monitor intake and output. #Hyperlipidemia: on statin DVT prophylaxis; SCDs Disposition: very frail and weak. Awaiting placement Charges/Coding Visit Charges Inpatient E&M: 36084 Subs Hosp L2
--- NOTE | 2023-10-15 10:13 | TREXTCAR_ITS ---
Diet Diet Order/Speech Therapy: 10/14/23 13:05 Diet: Regular - General Is pt able to select menu?: Yes Diet Comments: Distant supevision, Meds whole in Routine Orders/Code Status Enema Type: Fleetz Enema Frequency: Daily PRN Suppository Type: Dulcolax 10mg Suppository Frequency: Daily PRN O2 Frequency: PRN Keep PO Greater than or Equal to (%): 90 Therapies Weight Bearing: Weight bearing as tolerated Physical Therapy: Eval and Treat Occupational Therapy: Eval and Treat Problem/Diagnosis (1) COPD exacerbation: Status: Chronic Code(s): J44.1 - Chronic obstructive pulmonary disease with (acute) exacerbation Plan #Acute hypoxic and hypercapnic respiratory failure due to COPD exacerbation * Was off BiPAP and now on 2L of oxygen. On IV Solu-Medrol and breathing treatments bronchodilators. * Titrate oxygen to maintain saturation above 90%. PT OT on board. Fall precautions. * completed a 5 day course of IV doxycycline * on PO prednisone. 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 Recommends patient should have a biopsy but this can only be done by ENT on Thursday. * Patient will therefore be discharged to follow-up with the ENT on Thursday for biopsy of the vocal cord mass. * #History of severe alcohol abuse: * Alcohol withdrawal protocol with phenobarbital. * Monitor CIWA score. * Thiamine, folic acid and Multi-Veronica. #HFrEF * Has known EF of 40%. Not in exacerbation. On p.o. Lasix. Also on lisinopril. * Monitor intake and output. * #Hyperlipidemia: on statin DVT prophylaxis; SCDs Disposition: very frail and weak. Awaiting placement Allergies/Procedures Done in Hospital Allergies No Known Allergies Allergy (Verified 10/08/23 20:03) Procedures: None Type of Care/Length of Stay Estimated LOS: Convalescent Care Less Than 30 days Type of Care Needed: Skilled Rehab Potential: Fair Prognosis: Fair Additional Orders/Day of Discharge Day of Discharge: 10/15/23 Dietary and Speech Recommendations Dietitian Recommendations/Changes: Continue Regular diet with texture/consisitency per DINKING MACHINE OPERATOR RD will order 4 oz ensure plus high protein 4x/day with medpass to provide supplemental energy. Discharge Plan Admission Admit Date/Time: 10/08/23 21:31 Primary Reason for Your Visit: COPD exacerbation, vocal cord mass Attending Provider: Priscilla Chris Primary Care Provider: Care Physician,No Primary Consulting Providers: Mickey Floyd; Mickey Xie; Ct Manzo; Vanesa Jennings; Jodie Arthur NP; Gautam Wesley; Syd Coleman Instructions Patient Instructions: COPD Meds Discharge Orders/Prescriptions Prescriptions: New furosemide 40 mg Tablet 40 mg PO DAILY Qty: 30 2RF atorvastatin 40 mg Tablet 40 mg PO QHS Qty: 30 2RF prednisone 20 mg Tablet 40 mg PO BREAKFAST Qty: 6 0RF thiamine HCl (vitamin B1) [Vitamin B-1] 100 mg Tablet 100 mg PO DAILYCM Qty: 30 2RF lisinopril 5 mg Tablet 5 mg PO DAILY Qty: 30 2RF Referrals / Follow Up: Mickey Xie DO [Med Staff - Active Staff] - Within 1 Week Syd Coleman MD [Med Staff - Active Staff] - 10/19/23 (to have direct laryngoscopy on Thursday10/19/2023) Care Physician,No Primary [Primary Care Provider] - Disposition Disposition (needs filled in before D/C Order can be placed): [facility]
--- NOTE | 2023-10-15 10:16 | PCM.DC.SUM ---
Providers Date of Admission: 10/08/23 Date of Discharge: 10/15/23 Primary Care Physician: Megan Primary Care Phys Consultations 10/09/23 00:39 Consult: Hospice / Palliative Care Routine Consulting Provider: [facility] Reason for Consult: End-stage COPD. EMERGENT Consult: No Notified: Yes Date Notified: 10/09/23 Time Notified: 00:39 Method of Notification: Answering Service 10/14/23 07:28 Consult: ENT Routine Consulting Provider: Syd Coleman Reason for Consult: vocal cord mass, stridor EMERGENT Consult: No Notified: Yes Date Notified: 10/14/23 Time Notified: 07:29 Method of Notification: Text Reason For Visit: AE COPD IN THE SETTING OF CHRONIC ETOH ABUSE. Diagnosis Discharge Diagnosis (1) COPD exacerbation: Status: Chronic Code(s): J44.1 - Chronic obstructive pulmonary disease with (acute) exacerbation Plan #Acute hypoxic and hypercapnic respiratory failure due to COPD exacerbation Was off BiPAP and now on 2L of oxygen. On IV Solu-Medrol and breathing treatments bronchodilators. Titrate oxygen to maintain saturation above 90%. PT OT on board. Fall precautions. completed a 5 day course of IV doxycycline on PO prednisone. 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 Recommends patient should have a biopsy but this can only be done by ENT on Thursday. Patient will therefore be discharged to follow-up with the ENT on Thursday for biopsy of the vocal cord mass. #History of severe alcohol abuse: Alcohol withdrawal protocol with phenobarbital. Monitor CIWA score. Thiamine, folic acid and Multi-Veronica. #HFrEF Has known EF of 40%. Not in exacerbation. On p.o. Lasix. Also on lisinopril. Monitor intake and output. #Hyperlipidemia: on statin DVT prophylaxis; SCDs Disposition: very frail and weak. Awaiting placement Medications at Discharge Home Medications atorvastatin 40 mg tablet 40 mg PO QHS Cholesterol #30 tabs 10/15/23 furosemide 40 mg tablet 40 mg PO DAILY Fluid retention #30 tabs 10/15/23 lisinopril 5 mg tablet 5 mg PO DAILY BP #30 tabs 10/15/23 prednisone 20 mg tablet 40 mg (2 x 20 mg) PO BREAKFAST Steroid #6 tabs 10/15/23 thiamine HCl (vitamin B1) 100 mg tablet (Vitamin B-1) 100 mg PO DAILYCM Supplement #30 tabs 10/15/23 Hospital Course Operations None Procedures 2-D Echocardiogram Summary of Care Provided Minutes Spent on Discharge: 55 Hospital Course: Patient is a 68-year-old male with a past medical history as outlined was admitted through the ED on 10/08/2023 with a complaint of shortness of breath and wheezing. Patient had a history of chronic alcohol abuse and had a history of agoraphobia, refusing to leave his house for many years prior to this admission. His symptoms had began about 2 weeks prior to admission. He has severe wheezing but had continued to smoke and drink alcohol. He was saturating at 70% on room air when the EMS arrived and he was in respiratory distress he was brought into the ED. Chest x-ray showed no acute cardiopulmonary process. He was admitted and managed for acute exacerbation of COPD. He was placed on IV Solu-Medrol and breathing treatments with bronchodilators. He had 2D echocardiogram which showed moderate global left ventricular systolic dysfunction with EF of 40%. He had an extensive history of alcohol abuse and this could have been the cause of it. He was diuresed with IV Lasix and subsequently switched to p.o. Lasix. Patient had dysphagia and so he had a swallowing test done by speech therapy which showed a right vocal cord mass. 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 ENT recommended that patient follow-up on 10/19/2023 for direct laryngoscopy to be done on outpatient basis. [facility]. He was placed on PO lisinopril and is to follow up with his PCP and cardiology as well as ENT within 1-2 weeks. TCU called and informed patient had to follow up with cardiology within 2-4 weeks for the heart failure with EF of 40%. Patient seen and examined prior to discharge. He had no active complaints and had a 95. Review of systems otherwise negative. Labs and vitals reviewed. Home medication reviewed and reconciled. He had been started on PO lisinopril. His BP was running on the lower side of normal, with patient having some hypotensive episodes, so a beta joaquín was not added on. He is to follow up with cardiology within 1-2 weeks also for evaluation for the LV systolic dysfunction in the setting of his strong history of alcohol abuse. Physical Exam Const alert, oriented x3, no apparent distress and average body habitus Constitutional Narrative: frail, weak General Appearance: cooperative and comfortable HEENT normocephalic, head/scalp atraumatic, hearing grossly normal bilaterally, moist oral mucous membranes and oropharynx normal Eyes PERRL and EOMs intact bilaterally Neck no lymphadenopathy, supple and no JVD Lymph Lymphatic: no lymphadenopathy noted and no lymphedema noted Resp Resp Narrative: diminished breath sounds bibasally, no wheezes or crackles. On 2L of oxygen by nasal canula Cardio regular rate, regular rhythm, S1 normal heart sound, S2 normal heart sound and no murmurs GI normal to inspection, nondistended, normoactive bowel sounds, soft to palpation, non-tender and non-distended Extremity normal to inspection, full ROM, normal capillary refill, no clubbing, cyanosis or edema and no calf tenderness General Extremity: no tenderness to palpation of joints or extremities Skin Skin Narrative: P General Skin Exam: no breakdown Neuro CN's II-XII intact bilaterally, moves all extremities, no focal motor deficits, no sensory deficits noted and deep tendon reflexes 2+ bilaterally Sensorium / Orientation: awake, alert, oriented to person and oriented to place Speech: speech normal Motor Exam: strength 5/5 throughout and general weakness Psych thought process normal, cooperative and affect normal Appearance: appropriate Weight / BMI Weight Weight: 141 lb 12.116 oz Body Mass Index (BMI) 20.9 ABG / Lab / Microbiology Data 10/15/23 07:00 10/15/23 07:00 Laboratory: Laboratory Results - last 24 hr 10/15/23 07:00: WBC 9.5, RBC 4.02 L, Hgb 12.6 L, Hct 38.3 L, MCV 95.3 H, MCH 31.3, MCHC 32.9, RDW Std Deviation 53.1 H, RDW Coeff of Elidia 15.2 H, Plt Count 225, MPV 9.6, Immature Gran % (Auto) 0.400, Neut % (Auto) 65.1, Lymph % (Auto) 22.7, [place] % (Auto) 10.8 H, Eos % (Auto) 0.7, Baso % (Auto) 0.3, Absolute Neuts (auto) 6.2, Absolute Lymphs (auto) 2.16, Nucleated RBC % 0, Sodium 137, Potassium 3.5, Chloride 101, Carbon Dioxide 34.0 H, Anion Gap 2 L, BUN 12, Creatinine 0.42 L, Estim Creat Clear Calc 80.38, Est GFR (MDRD) Af Amer 257, Est GFR (MDRD) Non-Af 212, BUN/Creatinine Ratio 28.3 H, Glucose 100, Calcium 8.6 Microbiology: Microbiology 10/08/23 20:28 Blood Culture (Wb) - Venous Blood Culture - Final No growth in 5 days. 10/08/23 20:23 Blood Culture (Wb) - Venous Blood Culture - Final No growth in 5 days. 10/09/23 04:30 Urine, Clean Catch Urine Culture - Final Culture exhibits no growth. 10/08/23 20:28 Mucosa - Nose SARS-CoV-2, Influenza & RSV (PCR) - Final D/C Instructions Discharge Diet: Low fat / Low cholesterol Discharge Activity: Return to Normal Activity Weight Bearing Status: Weight bearing as tolerated Call your doctor if you observe: Fever of 101 or Higher, Shortness of breath, Dizziness, Swelling in the ankles and Chest pain Meaningful Use Info Meaningful Use Meaningful Use Diagnoses (Choose all that apply): CHF CHF ANA/ARB ordered at discharge?: Yes Documented LVEF (%): 40 Ischemic Stroke Statin Dosing Therapy Reference: STATIN DOSE THERAPY REFERENCE: * Patients > 75 years receive moderate or high dose statin therapy. * Patients 75 years or YOUNGER should receive HIGH intensity statin dose unless contraindicated. You will be required to document reason for non-treatment if statin daily dose does not meet guidelines. HIGH DOSE STATIN THERAPY DAILY Atorvastatin > than or = to 40 mg Rosuvastatin > than or = to 20 mg Amlodipine + Atorvastatin > than or = to 2.5/40 mg Ezetimibe + Simvastatin 10/80 mg Simvastatin 80mg Discharge Plan Admission Admit Date/Time: 10/08/23 21:31 Primary Reason for Your Visit: COPD exacerbation, vocal cord mass Attending Provider: Priscilla Chris Primary Care Provider: Care Physician,No Primary Consulting Providers: Mickey Floyd; Mickey Xie; Ct Manzo; Vanesa Jennings; Jodie Arthur STRATEGIC MARKETING MANAGER; Gautam Wesley; Syd Coleman Instructions Patient Instructions: COPD Meds Discharge Orders/Prescriptions Prescriptions: New furosemide 40 mg Tablet 40 mg PO DAILY Qty: 30 2RF atorvastatin 40 mg Tablet 40 mg PO QHS Qty: 30 2RF prednisone 20 mg Tablet 40 mg PO BREAKFAST Qty: 6 0RF thiamine HCl (vitamin B1) [Vitamin B-1] 100 mg Tablet 100 mg PO DAILYCM Qty: 30 2RF lisinopril 5 mg Tablet 5 mg PO DAILY Qty: 30 2RF Referrals / Follow Up: Mickey Xie DO [Med Staff - Active Staff] - Within 1 Week Syd Coleman MD [Med Staff - Active Staff] - 10/19/23 (to have direct laryngoscopy on Thursday10/19/2023) Care Physician,No Primary [Primary Care Provider] - Fredy Dean MD [Med Staff - Active Staff] - Within 2 Weeks Disposition Disposition (needs filled in before D/C Order can be placed): Residential Facility Charges/Coding Visit Charges Inpatient E&M: 40117 Disch Hosp >30min
[2023-10-15 10:57] VITALS: PULSE 85; RESP 18
--- NOTE | 2023-10-15 12:12 | CASEMGMT ---
SW met with patient and his daughter and they were aware patient was going to TCU today. SW also provided them with information on possible assistance with mold removal. Patient's daughter said she is trying to find a new apartment possibly custodial apartment. SW provided them with a list of available apartments. Patient's daughter said when the biopsy results come back they do not want patient to get the results until she and her sister were present. SW will pass this message along to TCU SW. Plan: d/c to [facility] TCU under skilled level of care. Mary Anne SCHILLING
== END 2023-10-15 13:02 | disposition skilled nursing facility (03) | DRG 189 ==
LOC: ED 21:21 → ICU 21:55 → PCU 10-09 15:49
PROVIDERS: Family Medicine; Admitting Provider Internal Medicine; Emergency Provider Emergency Medicine; Visit Provider Student in an Organized Health Care Education/Training Program
DX: J96.01 Acute respiratory failure with hypoxia (principal); I50.22 Chronic systolic (congestive) heart failure; J44.1 Chronic obstructive pulmonary disease with (acute) exacerbation; J38.01 Paralysis of vocal cords and larynx, unilateral; C32.1 Malignant neoplasm of supraglottis; J96.02 Acute respiratory failure with hypercapnia; F10.10 Alcohol abuse, uncomplicated; F17.200 Nicotine dependence, unspecified, uncomplicated; E78.5 Hyperlipidemia, unspecified; J38.3 Other diseases of vocal cords; Y90.0 Blood alcohol level of less than 20 mg/100 ml; F40.02 Agoraphobia without panic disorder; Z91.198 Patient's noncompliance with other medical treatment and regimen for other reason
CPT/HCPCS: 36415; 36600; 70490; 71045; 80048; 80053; 80307; 80320; 81001; 82803; 83605; 83735; 83880; 84100; 84484; 85025; 85610; 85730; 87040; 87086; 87631; 92526; 92610; 92612; 93005; 93306; 94002; 94003; 94640; 94668; 94762; 97116; 97162; 97166; 97530; 97535; 97802; 97803; 99252; 99285; 99406; J7030; J7040; A4216; G0463; G0480; J1940

== ENCOUNTER 2023-10-15 13:14 | Inpatient (IN) | payer MEDICARE, SELFPAY ==
[2023-10-15 13:37] VITALS: BP 125/60; PULSE 104; RESP 18; TEMP 36.6; O2SAT 96; BMI 19.9
[2023-10-15 13:54] VITALS: O2SAT 96
[2023-10-15 13:57] VITALS: BMI 19.9
[2023-10-15 16:00] VITALS: RESP 16
[2023-10-15] MEDS: Ensure Plus High Protein 120 ML LIQUID PO (18:14)
--- NOTE | 2023-10-15 19:28 | HP.PCM_ITS ---
HPI - General General Date of Admission: 10/15/23 Date of Service: 10/15/23 Chief Complaint: Here for rehabilitation. HPI Narrative 10/08/2023 CHACORTA CONCEPCION, is a 68 Male who presents to [facility] ED with shortness of breath. Worsening respiratory distress, EMS gave IM Epi, Duoneb, Solu-medrol. Pulsox 70% on RA. Chest X-ray negative for pneumothorax, EKG sinus tachycardia, pvc's. BiPAP, aerosols, Heliox. Racemic epi, covid negative, flu negative. WBC 11.5, Creatinine 0.63, Sodium 133, Lactic acid 2.8, Troponin negative, ETOH negative. Breathing improved on BiPAP. 10/08/2023 Admit [facility]. Doxycycline IV, Solu-medrol IV, nebs, for acute respiratory failure 2/2 COPD. Trend Lactate. Phenobarbital taper for ETOH withdrawal. Anxiolytics for agoraphobia. 10/09/2023 Echo EF 40%. Moderate global LV systolic dysfunction. Mild tricuspid insufficiency. 10/09/2023 Doing well, Breathing on BiPAP. BiPAP, steroids, nebs, antibiotics, palliative for acute respiratory failure 2/2 COPD. Alcohol withdrawal protocol for severe alcohol abuse. 10/10/2023 Doing well. PT/OT SNF. Stop IV fluids, Start IV Lasix, Lisinopril, beta joaquín for chronic HFrEF. 10/11/2023 No issues. Ambulatory pulsox. Outpatient cardiology for chronic HFrEF. 10/12/2023 Weak, cough. Change IV Solu-medrol to PO prednisone. Phenobarbital taper for ETOH withdrawal, add Thiamind, Folate, MVI. PO Lasix, Lisinopril for chronic HFrEF. 10/13/2023 Stop Doxycycline. 10/13/2023 FEES recommended thin liquids, easy to chew foods. 10/14/2023 Dr. 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 10/15/2023 ENT recommended Right larygeal mass biopsy 10/19/2023. 10/15/2023 Admit to TCU with debility, here for rehabilitation, strengthening, prior to discharge home alone. [facility] Medical History (Updated 10/15/23 @ 19:[address] Benny Brian MD) Wears dentures Wears glasses Cardiology follow-up encounter Difficulty swallowing Smoker High cholesterol Alcohol use COPD (chronic obstructive pulmonary disease) History of CHF (congestive heart failure) Home Medications ?Medication ?Instructions ?Recorded ?Last Taken ?Type atorvastatin 40 mg tablet 40 mg PO QHS Cholesterol #30 tabs 10/15/23 10/14/23 Rx furosemide 40 mg tablet 40 mg PO DAILY Fluid retention #30 10/15/23 Unknown Rx tabs lisinopril 5 mg tablet 5 mg PO DAILY BP #30 tabs 10/15/23 10/15/23 Rx prednisone 20 mg tablet 40 mg (2 x 20 mg) PO BREAKFAST 10/15/23 10/15/23 Rx Steroid #6 tabs thiamine HCl (vitamin B1) 100 mg 100 mg PO DAILYCM Supplement #30 10/15/23 10/14/23 Rx tablet (Vitamin B-1) tabs Allergy/AdvReac Type Severity Reaction Status Date / Time No Known Allergies Allergy Verified 10/15/23 15:06 Surgical History History of surgery Social History (Updated 10/15/23 @ 19:[address] Benny Brian MD) household members: none Smoking Status: Current every day smoker tobacco type: cigarettes Smoking packs per day: 2 Smoking cigarettes per day: 40.0 alcohol intake: current alcohol intake frequency: 3 or more drinks per day Alcohol type: beer details: 6 24 ounce cans of beer daily. substance use type: does not use ROS Constitutional Constitutional: Reports weakness; Denies chills, fever(s) or weight gain ENT HEENT: Denies headache(s), nasal congestion or nasal discharge Cardiovascular Cardiovascular: Denies chest pain or palpitations Respiratory/Chest Respiratory/Chest: Denies cough, excessive phlegm production or shortness of breath with exertion Gastrointestinal Gastrointestinal: Denies abdominal pain, nausea or vomiting Genitourinary Genitourinary: Denies dysuria Musculoskeletal Musculoskeletal: Denies joint pain or joint swelling Integumentary Integumentary: Denies rash or wounds Neurologic Neurologic: Denies focal weakness, numbness or tingling Psychiatric Psychiatric: Denies anxiety, auditory hallucinations, depression, homicidal ideation or suicidal ideation Vital Signs Vital Signs Vital Signs: 10/15/23 13:37 10/15/23 13:37 10/15/23 13:54 Temperature 98 F Temperature Source Temporal Pulse Rate 104 H Pulse Rhythm Regular Pulse Strength Normal (2+) Respiratory Rate 18 18 Respiratory Effort Normal Non-Labored Respiratory Depth Normal Respiratory Pattern Normal Blood Pressure 125/60 H Blood Pressure Mean 81 Blood Pressure Source Monitor Blood Pressure Position Semi-Fowlers Blood Pressure Location Right Arm Pulse Ox 96 96 Oxygen Delivery Method Nasal Cannula Nasal Cannula Nasal Cannula Oxygen Flow Rate (L/min) 1 1 1 10/15/23 16:00 Temperature Temperature Source Pulse Rate Pulse Rhythm Pulse Strength Respiratory Rate 16 Respiratory Effort Respiratory Depth Respiratory Pattern Blood Pressure Blood Pressure Mean Blood Pressure Source Blood Pressure Position Blood Pressure Location Pulse Ox Oxygen Delivery Method Nasal Cannula Oxygen Flow Rate (L/min) 1 Weight Weight: 61 kg Body Mass Index (BMI) 19.9 Physical Exam Const alert General Appearance: cooperative HEENT normocephalic Eyes PERRL and EOMs intact bilaterally Neck supple, no JVD and no carotid bruits Resp normal respiratory effort, normal air movement and clear to auscultation bilaterally Cardio regular rate and regular rhythm GI normal to inspection, nondistended, normoactive bowel sounds, non-tender and non-distended Extremity normal capillary refill General Extremity: Negative for edema Skin no rashes or lesions noted General Skin Exam: no breakdown Psych affect normal Appearance: appropriate Assessment & Plan Assessment/Plan (1) Debility: (2) Acute hypoxic respiratory failure: (3) Laryngeal mass: (4) Agoraphobia: (5) Lactic acidosis: (6) COPD (chronic obstructive pulmonary disease): (7) Tobacco abuse: (8) Alcohol abuse: (9) Chronic HFrEF (heart failure with reduced ejection fraction): (10) Hyperlipidemia: PLAN: Plan 68 year old male with below past medical history hospitalized for acute respiratory failure with hypoxia 2/2 laryngeal mass/COPD, complicated by agoraphobia, alcohol abuse, tobacco abuse, admitted to TCU with debility, here for rehabilitation, strengthening, prior to discharge home alone. * Debility - PT/OT. * Pain - Tylenol 1000mg q6 prn pain (1-10). * Bowel - senna/colace 1 tablet bid prn, Dulcolax 10mg pr daily prn. * Adult immunization - Administer pneumonia vaccine, covid vaccine, flu vaccine as appropriate. * DVT prophylaxis - Hold. * Laryngeal mass - Dr. Coleman biopsy 10/19/2023. * Hyperlipidemia - Atorvastatin 40mg qhs. * Nutrition - Ensure Plus 120ml po tidcm. * Chronic HFrEF - Lisinopril 5mg daily, Furosemide 40mg daily. * Dry skin - Ammonium lactate topical bid, Calmoseptine topical bid. * COPD - Prednisone taper. * Alcohol abuse - Thiamine 100mg daily.
[2023-10-15] MEDS: Menthol/Lanolin/Calamine/Znox 113 GM Tube 1 APPLIC TOPICAL (21:54)
[2023-10-15] MEDS: Ammonium Lactate 225 gm Bottle 1 APPLIC TOPICAL (21:55)
[2023-10-15] MEDS: Atorvastatin Calcium 40 MG Tablet PO (21:56)
[2023-10-15] MEDS: 0.9% Saline Lock 10 ML Syringe IV (22:00)
[2023-10-15 22:45] VITALS: PULSE 85; RESP 14; RESP 17; O2SAT 100
[2023-10-16 02:44] VITALS: PULSE 81; RESP 14; RESP 20; O2SAT 100
[2023-10-16 03:36] VITALS: PULSE 83; RESP 14; RESP 20; O2SAT 98
[2023-10-16 05:55] LABS: Absolute Lymphocyte Count 1.54 X10^3/uL (0.83-4.51); Absolute Neutrophil Count 5.4 X10^3/uL (2.0-7.7); Basophil# 0.03 X10^3/uL; Basophil% 0.4 % (0-1); Eosinophil# 0.09 X10^3/uL; Eosinophils% 1.1 % (0-5); Hemoglobin 12.3 g/dL (13.0-16.5); Lymphocyte # 1.54 X10^3/ul (0.83-4.51); Lymphocyte % 18.9 % (19-41); Mean Corp Hgb Conc 32.4 g/dL (32-36); Mean Corpuscular Hgb 30.8 pg (27.0-32.0); Mean Corpuscular Volume 95.2 fL (80-94); Monocyte# 1.01 X10^3/uL; Monocyte% 12.4 % (0-10); NRBC Flagged by Analyzer 0 % (0-5); Neutrophil # 5.42 X10^3/uL (2.7-7.7); Neutrophil % 66.6 % (47-70); Platelet Count 216 K/mm3 (150-450); RBC Distribution Width CV 15.2 % (11.6-14.6); RBC Distribution Width SD 53.4 fl (35.1-43.9); Red Blood Count 3.99 M/mm3 (4.6-6.2); White Blood Count 8.1 K/mm3 (4.4-11.0)
[2023-10-16 06:21] LABS: Anion Gap 4 (5-15); BUN 12 mg/dL (7-18); Calcium,Total 8.7 mg/dL (8.5-10.1); Chloride 100 mmol/L (98-107); Creatinine, Serum 0.32 mg/dL (0.70-1.30); EST Glomerular Filtration Rate 298 mL/min (>60); Est Glom Filt Rate - Afr Amer 360 mL/min (>60); Estimated Creatinine Clearance 76.25 ml/min; Glucose 99 mg/dL (74-106); Potassium 3.8 mmol/L (3.5-5.1); Sodium Level 137 mmol/L (136-145)
[2023-10-16] MEDS: Furosemide 40 MG Tablet PO (09:26)
[2023-10-16] MEDS: predniSONE 20 MG Tablet 40 MG PO (09:26)
[2023-10-16] MEDS: Menthol/Lanolin/Calamine/Znox 113 GM Tube 1 APPLIC TOPICAL ×2 (09:27→21:37)
[2023-10-16] MEDS: Thiamine Hydrochloride 100 MG Tablet PO (09:27)
[2023-10-16] MEDS: Lisinopril 5 MG Tablet PO (09:27)
[2023-10-16] MEDS: Ammonium Lactate 225 gm Bottle 1 APPLIC TOPICAL ×2 (09:30→21:37)
[2023-10-16 09:37] VITALS: BP 100/68; PULSE 116
--- NOTE | 2023-10-16 12:29 | PCM.PN.DRR ---
Documented by User: Heaven Babcock 10/16/23 12:53 TCU RX Drug Regimen Review Subjective/Objective Subjective/Objective: Subjective: TCU Admission. 68 YOM presented to the ER with shortness of breath. Hospitalized for acute respiratory failure with hypoxia 2/2 laryngeal mass/COPD, complicated by agoraphobia, alcohol abuse, tobacco abuse. Admitted to TCU with debility for strengthening and rehabilitation. Objective: Allergies No Known Allergies Allergy (Verified 10/15/23 15:06) Current Medications Generic Name Dose Route Start Last Admin Trade Name Freq PRN Reason Stop Dose Admin Acetaminophen 1,000 mg 10/15/23 19:48 Acetaminophen 500 Mg Tablet PO Q6H PRN PRN Pain Score 1-10 Atorvastatin Calcium 40 mg 10/15/23 22:00 10/15/23 21:56 Atorvastatin Calcium 40 Mg Tablet PO 40 mg QHS IKER Administration Bisacodyl 10 mg 10/15/23 13:33 Bisacodyl 10 Mg Suppository RC DAILY PRN CONSTIPATION Calamine/Phenol 1 applic 10/15/23 22:00 10/16/23 09:27 Menthol/Lanolin/Calamine/Znox 113 Gm Tube TOPICAL 1 applic BID IKER Administration Protocol Furosemide 40 mg 10/16/23 10:00 10/16/23 09:26 Furosemide 40 Mg Tablet PO 40 mg DAILY IKER Administration Protocol Lactic Acid 1 applic 10/15/23 22:00 10/16/23 09:30 Ammonium Lactate 225 Gm Bottle TOPICAL 1 applic BID IKER Administration Protocol Lisinopril 5 mg 10/16/23 10:00 10/16/23 09:27 Lisinopril 5 Mg Tablet PO 5 mg DAILY IKER Administration Protocol Nutritional Formula (Lactose Free) 120 ml 10/15/23 17:45 10/16/23 09:26 Ensure Plus High Protein 120 Ml Liquid PO Not Given TIDCM IKER Prednisone 40 mg 10/16/23 08:00 10/16/23 09:26 Prednisone 20 Mg Tablet PO 10/21/23 08:01 40 mg BREAKFAST IKER Administration Senna/Docusate Sodium 1 tablet 10/16/23 12:25 Senna/Docusate Sodium 1 Tablet PO BID PRN Constipation Sodium Chloride 10 - 40 ml 10/15/23 13:44 10/15/23 22:00 0.9% Saline Lock 10 Ml Syringe IV 10 ml UD PRN Administration SALINE FLUSH Thiamine HCl 100 mg 10/16/23 08:00 10/16/23 09:27 Thiamine Hydrochloride 100 Mg Tablet PO 100 mg DAILYCM IKER Administration Tuberculin PPD 0.1 ml 10/23/23 10:00 Tuberculin,Purif.Prot.Deriv. 50 Tu/Ml Vial ID 10/23/23 10:01 X1 ONE Problem List Hyperlipidemia (Acute) Chronic HFrEF (heart failure with reduced ejection fraction) (Chronic) COPD (chronic obstructive pulmonary disease) (Chronic) Laryngeal mass (Acute) Debility (Acute) Lactic acidosis (Acute) Agoraphobia (Acute) Alcohol abuse (Acute) Tobacco abuse (Acute) Acute hypoxic respiratory failure (Acute) Vital Signs Temp Pulse Resp BP Pulse Ox O2 Del Method O2 Flow Rate 98 F 116 H 20 H 100/68 98 Bi-pap 1 10/15/23 13:37 10/16/23 09:37 10/16/23 03:36 10/16/23 09:37 10/16/23 03:36 10/16/23 03:36 10/16/23 11:54 FiO2 28 10/16/23 03:36 Oxygen Flow Rate (L/min) 1 Oxygen Delivery Method Bi-pap Weight: 61 kg Body Mass Index (BMI) 19.9 Sodium 137 mmol/L (136-145) 10/16/23 05:12 Potassium 3.8 mmol/L (3.5-5.1) 10/16/23 05:12 Chloride 100 mmol/L (98-107) 10/16/23 05:12 Carbon Dioxide 33.0 mmol/L (21.0-32.0) H 10/16/23 05:12 Anion Gap 4 (5-15) L 10/16/23 05:12 BUN 12 mg/dL (7-18) 10/16/23 05:12 Creatinine 0.32 mg/dL (0.70-1.30) L 10/16/23 05:12 Est GFR (MDRD) Af Amer 360 mL/min (>60) 10/16/23 05:12 Est GFR (MDRD) Non-Af 298 mL/min (>60) 10/16/23 05:12 BUN/Creatinine Ratio 38.0 RATIO (10-20) H 10/16/23 05:12 Glucose 99 mg/dL (74-106) 10/16/23 05:12 Assessment/Plan: 1. Pain: acetaminophen 1000mg PO Q6H PRN pain 1-10. Resident has not used any PRN doses. Please continue to monitor for increased pain and PRN usage. 2. Bowel: senna/docusate 1T PO BID PRN constipation and bisacodyl 10mg RC daily PRN constipation. Resident has not used any PRN doses. Please continue to monitor for constipation and PRN usage. Last documented bowel movement was 10/12. 3. Hyperlipidemia: atorvastatin 40mg PO QHS. Please consider ordering a lipid panel as there is no level in the chart. Thanks. Please continue to monitor LFTs (last 10/09/23) and muscle pain. 4. Chronic HFrEF: lisinopril 5mg PO daily and furosemide 40mg PO daily. Please continue to monitor BP (last 100/68), SCr (last 0.32mg/dL), potassium (last 3.8mmol/L), edema and cough. 5. COPD: prednisone 40mg PO breakfast thru 10/21/23. Please continue to monitor for agitation, stomach upset, glucose (last 99mg/dL) and insomnia. 6. Alcohol abuse: thiamine 100mg PO DAILYCM. Please continue to monitor. 7. Dry skin: Ammonium lactate topical bid, Calmoseptine topical bid. Please continue to monitor. Assessment/Plan for indications treated with psychotropic medications: None Medical chart and medication regimen reviewed. The following medication irregularities or issues were identified: 1. Atorvastatin 40mg PO QHS. Please consider ordering a lipid panel as there is no level in the chart. Thanks. Date Date of Note:: 10/16/23 Documented by User: Dr. Benny Brian MD 10/16/23 13:15 TCU RX Drug Regimen Review Provider Comments Provider responsibility Provider Comments to Recommendations by Pharmacy: Agree
[2023-10-16] MEDS: Tuberculin,Purif.prot.deriv. 50 TU/ML Vial 0.1 ML ID (13:31)
[2023-10-16] MEDS: 0.9% Saline Lock 10 ML Syringe IV (13:33)
--- NOTE | 2023-10-16 13:58 | NURSING ---
PT FACE RED/RAISED/ITCHY AREAS. DAUGHTER STATED IT WAS WORSE TODAY THEN YESTERDAY. ASKED PT AND DAUGHTER WHAT IT WAS ,THEY STATED WASN'T SURE. NOTIFIED AND SEEN PT. NEW ORDER FOR LOTRISONE CREAM AND DOXYCYCLINE. RN AWARE
[2023-10-16 14:00] VITALS: PULSE 109; RESP 18; O2SAT 98
[2023-10-16 14:10] VITALS: BP 103/84; PULSE 109; RESP 18; TEMP 36.6; O2SAT 98
[2023-10-16] MEDS: Doxycycline 100 MG CAPSULE PO (14:17)
[2023-10-16] MEDS: Clotrimazole/Betamethasone 1 Tube 1 APPLIC TOPICAL ×2 (14:19→21:36)
--- NOTE | 2023-10-16 15:15 | CASEMGMT ---
TCU Admission Note Junior Brand Manager Sw met with patient at bedside to complete initial assessment. Also present was patient's daughter, Georgina (who is patient's POA). Patient stated that it was okay to complete assessment with visitor present. Sw introduced self and explained role. Verified patient's contacts, added his third daughter (Katt Barklye). Confirmed code status, patient wishes to remain full code at this time. Educated patient to Medicare benefits. Patient states that when he is ready for discharge he is receptive to going to an assisted living or snf home opposed to returning home where he currently lives alone and does not take good care of himself. Patients' daughter was also receptive to this idea, and happy that patient is open to that plan. Completed BIMS- score 13/15, patient unable to recall blue and bed without prompts/ reminders. Sw will remain involved throughout admission to assist with any discharge plannning needs. Adelina Wall, [employer]IPMENT TENDER, CLINICAL SERVICES DIRECTOR
--- NOTE | 2023-10-16 15:25 | NURSING ---
NICOTINE PATCH VERIFIED TO POST LT SHOULDER.
[2023-10-16] MEDS: Citalopram 10 MG Tablet PO (16:34)
[2023-10-16] MEDS: Ensure Plus High Protein 120 ML LIQUID PO (16:36)
[2023-10-16] MEDS: Atorvastatin Calcium 40 MG Tablet PO (21:35)
[2023-10-16 22:45] VITALS: PULSE 91; RESP 14; RESP 18; O2SAT 94
[2023-10-17] VITALS (8 sets, daily range): BP systolic 103–111; BP diastolic 69–78; PULSE 76–100; RESP 14–20; TEMP 36.8–37; O2SAT 97–100
[2023-10-17] MEDS: 0.9% Saline Lock 10 ML Syringe IV ×2 (06:55→21:51)
[2023-10-17 08:32] LABS: Cholesterol 129 mg/dL (200); High Density Lipoprotein 45 mg/dL; Triglycerides 91 mg/dL; Very Low Density Lipoprotein 18 mg/dL (5-40)
[2023-10-17] MEDS: Ensure Plus High Protein 120 ML LIQUID PO ×2 (09:25→17:51)
[2023-10-17] MEDS: Doxycycline 100 MG CAPSULE PO (09:26)
[2023-10-17] MEDS: predniSONE 20 MG Tablet 40 MG PO (09:26)
[2023-10-17] MEDS: Furosemide 40 MG Tablet PO (09:26)
[2023-10-17] MEDS: Lisinopril 5 MG Tablet PO (09:26)
[2023-10-17] MEDS: Thiamine Hydrochloride 100 MG Tablet PO (09:26)
[2023-10-17] MEDS: Menthol/Lanolin/Calamine/Znox 113 GM Tube 1 APPLIC TOPICAL ×2 (09:27→21:49)
[2023-10-17] MEDS: Citalopram 10 MG Tablet PO (09:27)
[2023-10-17] MEDS: Clotrimazole/Betamethasone 1 Tube 1 APPLIC TOPICAL ×2 (09:29→21:43)
[2023-10-17] MEDS: Ammonium Lactate 225 gm Bottle 1 APPLIC TOPICAL ×2 (09:29→21:44)
--- NOTE | 2023-10-17 10:08 | NURSING ---
Patient requesting breathing TXs for secretions. Patient denies cough. Call placed to Dr. Brian. New order received for Duonebs 3mL inhalation Q6H PRN for shortness of breath OR wheezing.
[2023-10-17] MEDS: Ipratropium/Albuterol Sulfate 3 ML AMPUL.NEB INHALATION (10:23)
--- NOTE | 2023-10-17 11:03 | NURSING ---
Addendum entered by Tiffanie Fernandez 10/17/23 15:41: new orders per d/c instructions: decrease lisinopril to 2.5 once daily and add Coreg 3.125 mg twice daily. Addendum entered by Tiffanie Fernandez 10/17/23 15:29: Pt returns to unit @0759. ED nurse reports that pt had several runs of SVTs, is asymptomatic, and that cardio was consulted and will make medication changes. Addendum entered by Tiffanie Fernandez 10/17/23 11:08: daughter present at bedside, is walking down to ED with pt. Original Note: Pt having increased shortness of breath, diaphoretic, hr-130. sp02-90% on bipap. RT recommending send to ED. RN called and notified Dr. Brian, received order to send to ED. Report called to ED @1102. Pt leaves unit @0519.
[2023-10-17] MEDS: Carvedilol 3.125 MG TABLET PO (17:51)
--- NOTE | 2023-10-17 19:01 | NURSING ---
Pt currently doing well with 2L 02, no dyspnea noted or reported.
[2023-10-17] MEDS: Atorvastatin Calcium 40 MG Tablet PO (21:44)
--- NOTE | 2023-10-18 00:34 | CPS ---
Pt refusing to wear bipap at this time, states he'd rather just sleep with O2
[2023-10-18 07:43] VITALS: O2SAT 95
[2023-10-18] MEDS: predniSONE 20 MG Tablet 40 MG PO (08:22)
[2023-10-18] MEDS: Doxycycline 100 MG CAPSULE PO (08:22)
[2023-10-18] MEDS: Thiamine Hydrochloride 100 MG Tablet PO (08:22)
[2023-10-18] MEDS: Citalopram 10 MG Tablet PO (08:22)
[2023-10-18] MEDS: Ammonium Lactate 225 gm Bottle 1 APPLIC TOPICAL ×2 (08:22→22:19)
[2023-10-18] MEDS: Clotrimazole/Betamethasone 1 Tube 1 APPLIC TOPICAL ×2 (08:23→22:19)
[2023-10-18] MEDS: Lisinopril 5 MG Tablet PO (08:23)
[2023-10-18] MEDS: Furosemide 40 MG Tablet PO (08:23)
[2023-10-18] MEDS: Carvedilol 3.125 MG TABLET PO ×2 (08:23→17:55)
[2023-10-18] MEDS: Menthol/Lanolin/Calamine/Znox 113 GM Tube 1 APPLIC TOPICAL ×2 (08:30→22:20)
[2023-10-18 13:13] VITALS: PULSE 88; RESP 16
[2023-10-18 14:37] VITALS: BP 98/70; PULSE 80; RESP 22; TEMP 36.7; O2SAT 96
[2023-10-18 19:20] VITALS: PULSE 76; RESP 18
[2023-10-18] MEDS: Ipratropium/Albuterol Sulfate 3 ML AMPUL.NEB INHALATION (19:20)
[2023-10-18] MEDS: Atorvastatin Calcium 40 MG Tablet PO (22:19)
--- NOTE | 2023-10-18 23:40 | NURSING ---
At 2100 audible stridor heard by this nurse while in another pt's room. Upon assessment pt had labored breathing and lips were noted to be cyanotic. Rapid response called. O2 set to 10L via nonrebreather mask, pt recovered quickly, vitals taken: BP: 170/98, SpO2: 97%, HR: 102. Pt stated he was coughing and that is when it became difficult to breathe. Dr. Brian paged and new orders received by this nurse for PRN Heliox and Racemic for stridor per respiratory's suggestion. Pt currently resting in bed with 2L O2 via nasal cannula.
[2023-10-19 07:12] VITALS: O2SAT 96
[2023-10-19 08:10] VITALS: BP 109/73; PULSE 83
[2023-10-19] MEDS: Lisinopril 5 MG Tablet PO (09:08)
--- NOTE | 2023-10-19 10:41 | NURSING ---
Offered covid vaccine, VIS provided. Patient refuses at this time.
--- NOTE | 2023-10-19 10:51 | NURSING ---
PT LEFT FLOOR AT 1051 BY BED FOR A PROCEDURE OF A LARYNGEAL MASS BIOPSY.
--- NOTE | 2023-10-19 13:23 | NURSING ---
PER YACHT RIGGER,PT IS BEING ADMITTED TO ICU. RN AWARE
--- NOTE | 2023-10-19 16:15 | CHAPLAIN ---
Type of Pastoral Visit _x__ Initial Visit ___ Follow-up Visit ___ On-call Visit ___ General Patient Visit ___ Spiritual Assessment ___ Family Conference ___ Bereavement ___ Rapid Response ___ Code Blue ___ Other (describe below) Pastoral Care Referral From _x__ Patient _x__ Family ___ Nurse ___ Physician ___ International First Officer ___ Commodities Broker ___ Other (describe below) Sacrament/Intervention ___ Active listening ___ Anointing ___ Temple ___ Bereavement ___ Communion ___ Diana exploration ___ ___ Life review _x__ Prayer ___ Reconciliation ___ Sacrament of Sick _x__ Supportive presence ___ Wedding ___ Other (describe below) Pastoral Comments patient went from TCU to surgery and then was moved to ICU; met with family members in ICU and patient had trach and was awake; offered support and presence to all; family expresses positive hope for outcome and future health; welcomed prayer; pt nods head in agreement
--- NOTE | 2023-10-19 20:42 | DS.PCM_ITS ---
Providers Date of Admission: 10/15/23 Primary Care Physician: No Primary Care Phys Reason For Visit: HYPOXIC RESP. FAILURE Diagnosis Discharge Diagnosis (1) Debility: Status: Acute Code(s): R53.81 - Other malaise (2) Acute hypoxic respiratory failure: Status: Acute Code(s): J96.01 - Acute respiratory failure with hypoxia (3) Laryngeal mass: Status: Acute Code(s): J38.7 - Other diseases of larynx (4) Agoraphobia: Status: Acute Code(s): F40.00 - Agoraphobia, unspecified (5) Lactic acidosis: Status: Acute Code(s): E87.20 - Acidosis, unspecified (6) COPD (chronic obstructive pulmonary disease): Status: Chronic Code(s): J44.9 - Chronic obstructive pulmonary disease, unspecified (7) Tobacco abuse: Status: Acute Code(s): Z72.0 - Tobacco use (8) Alcohol abuse: Status: Acute Code(s): F10.10 - Alcohol abuse, uncomplicated (9) Chronic HFrEF (heart failure with reduced ejection fraction): Status: Chronic Code(s): I50.22 - Chronic systolic (congestive) heart failure (10) Hyperlipidemia: Status: Acute Code(s): E78.5 - Hyperlipidemia, unspecified Plan 68 year old male with below past medical history hospitalized for acute respiratory failure with hypoxia 2/2 laryngeal mass/COPD, complicated by agoraphobia, alcohol abuse, tobacco abuse, admitted to TCU with debility, here for rehabilitation, strengthening, prior to discharge home alone. * Debility - PT/OT. * Pain - Tylenol 1000mg q6 prn pain (1-10). * Bowel - senna/colace 1 tablet bid prn, Dulcolax 10mg pr daily prn. * Adult immunization - Administer pneumonia vaccine, covid vaccine, flu vaccine as appropriate. * DVT prophylaxis - Hold. * Laryngeal mass - Dr. Coleman biopsy 10/19/2023. * Hyperlipidemia - Atorvastatin 40mg qhs. * Nutrition - Ensure Plus 120ml po tidcm. * Chronic HFrEF - Lisinopril 5mg daily, Furosemide 40mg daily. * Dry skin - Ammonium lactate topical bid, Calmoseptine topical bid. * COPD - Prednisone taper. * Alcohol abuse - Thiamine 100mg daily. Medications at Discharge Home Medications atorvastatin 40 mg tablet 40 mg PO QHS Cholesterol #30 tabs 10/15/23 furosemide 40 mg tablet 40 mg PO DAILY Fluid retention #30 tabs 10/15/23 lisinopril 5 mg tablet 5 mg PO DAILY BP #30 tabs 10/15/23 prednisone 20 mg tablet 40 mg (2 x 20 mg) PO BREAKFAST Steroid #6 tabs 10/15/23 thiamine HCl (vitamin B1) 100 mg tablet (Vitamin B-1) 100 mg PO DAILYCM Supplement #30 tabs 10/15/23 carvedilol 3.125 mg tablet (Coreg) 3.125 mg PO BID 14 days #28 tabs 10/17/23 Hospital Course Operations None Procedures None Summary of Care Provided Minutes Spent on Discharge: 35 Hospital Course: 68 year old male with below past medical history hospitalized for acute respiratory failure with hypoxia 2/2 laryngeal mass/COPD, complicated by agoraphobia, alcohol abuse, tobacco abuse, admitted to TCU with debility, here for rehabilitation, strengthening, prior to discharge home alone. 10/19/2023 Discharge to [facility] for Dr. Coleman to perform laryngeal mass biopsy. Weight / BMI Weight Weight: 61 kg Body Mass Index (BMI) 19.9 ABG / Lab / Microbiology Data 10/16/23 05:12 10/16/23 05:12 D/C Instructions Discharge Diet: No restrictions Discharge Activity: Return to Normal Activity, May Shower and Use Walker Weight Bearing Status: Weight bearing as tolerated Call your doctor if you observe: Fever of 101 or Higher, Inability to urinate, Inability to have a bowel movement, Shortness of breath, Dizziness, Fainting spells, Swelling in the ankles, Chest pain and Uncontrolled pain Additional Instructions: 10/19/2023 Discharge to [facility] for Dr. Coleman to perform laryngeal mass biopsy. Please Follow Up With: Dr. Crow Meaningful Use Info Meaningful Use Meaningful Use Diagnoses (Choose all that apply): None applicable Ischemic Stroke Statin Dosing Therapy Reference: STATIN DOSE THERAPY REFERENCE: * Patients > 75 years receive moderate or high dose statin therapy. * Patients 75 years or YOUNGER should receive HIGH intensity statin dose unless contraindicated. You will be required to document reason for non-treatment if statin daily dose does not meet guidelines. HIGH DOSE STATIN THERAPY DAILY Atorvastatin > than or = to 40 mg Rosuvastatin > than or = to 20 mg Amlodipine + Atorvastatin > than or = to 2.5/40 mg Ezetimibe + Simvastatin 10/80 mg Simvastatin 80mg Discharge Plan Admission Admit Date/Time: 10/15/23 13:14 Primary Reason for Your Visit: Debility. Attending Provider: Benny Brian Chi Primary Care Provider: Sweetie Physician,Megan Primary Instructions Additional Instructions / Restrictions: 10/19/2023 Discharge to [facility] for Dr. Coleman to perform laryngeal mass biopsy. Discharge Orders/Prescriptions Prescriptions: No Action furosemide 40 mg Tablet 40 mg PO DAILY Qty: 30 2RF atorvastatin 40 mg Tablet 40 mg PO QHS Qty: 30 2RF prednisone 20 mg Tablet 40 mg PO BREAKFAST Qty: 6 0RF thiamine HCl (vitamin B1) [Vitamin B-1] 100 mg Tablet 100 mg PO DAILYCM Qty: 30 2RF lisinopril 5 mg Tablet 5 mg PO DAILY Qty: 30 2RF carvedilol [Coreg] 3.125 mg tablet 3.125 mg PO BID 14 Days Qty: 28 0RF Rx Instructions: must administer with a meal/food Referrals / Follow Up: Care Physician,No Primary [Primary Care Provider] - Disposition Disposition (needs filled in before D/C Order can be placed): Acute Care Hospital [facility]
--- NOTE | 2023-10-27 12:44 | MDS.RN ---
Information for the MDS was obtained from review of the clinical record, interview of resident, staff, and direct observation of resident?s care.
== END 2023-10-19 14:00 | disposition short-term general hospital (02) | DRG 154 ==
PROVIDERS: Admitting Provider Family Medicine Geriatric Medicine; Visit Provider Family Medicine Geriatric Medicine
DX: J38.7 Other diseases of larynx (principal); J96.01 Acute respiratory failure with hypoxia; E87.20 Acidosis, unspecified; I50.22 Chronic systolic (congestive) heart failure; J44.9 Chronic obstructive pulmonary disease, unspecified; F10.10 Alcohol abuse, uncomplicated; F32.A Depression, unspecified; I07.1 Rheumatic tricuspid insufficiency; E78.00 Pure hypercholesterolemia, unspecified; F17.210 Nicotine dependence, cigarettes, uncomplicated; L71.9 Rosacea, unspecified; F41.9 Anxiety disorder, unspecified; F40.00 Agoraphobia, unspecified; Z79.899 Other long term (current) drug therapy
CPT/HCPCS: 36415; 80048; 80061; 85025; 94003; 94640; 94762; 97110; 97162; 97166; 97530; 97802; 99406; A4216

== ENCOUNTER 2023-10-17 11:11 | Emergency (ER) | payer MEDICARE, SELFPAY ==
[2023-10-17] VITALS (10 sets, daily range): BP systolic 96–125; BP diastolic 72–90; PULSE 87–117; RESP 14–24; TEMP 35.9–36.8; O2SAT 96–100; BMI 21.4
--- NOTE | 2023-10-17 11:15 | ED.RN ---
upon arrival vss, on bipap. no longer diaphoretic. alert an oriented. breathing improved on bipap
--- NOTE | 2023-10-17 11:26 | EKG12_ITS ---
Test Reason : SOB Blood Pressure : / mmHG Vent. Rate : 108 BPM Atrial Rate : 108 BPM P-R Int : 182 ms QRS Dur : 074 ms QT Int : 286 ms P-R-T Axes : 071 020 046 degrees QTc Int : 383 ms Sinus tachycardia with frequent Premature ventricular complexes and Fusion complexes Nonspecific ST abnormality Abnormal ECG BASELINE ARTIFACT Confirmed by Carlito Martell ([id number]), production editor SRAVANTHI GALO ([id number]) on 10/20/2023 8:03:30 AM Referred By: Confirmed By:Carlito Martell
--- NOTE | 2023-10-17 11:26 | RAD_ITS ---
INDICATION: dyspnea EXAMINATION/TECHNIQUE: X-RAY - XR Chest 1 View COMPARISON: October 09, 2023 FINDINGS: LINES/DEVICES: None. LUNGS: No consolidation, edema or effusion. No pneumothorax. MEDIASTINUM AND CARDIOVASCULAR STRUCTURES: Cardiac silhouette not enlarged. Central airways and mediastinal contour are unremarkable. BONES AND SOFT TISSUES: Stable. RAD/Chest 1 View (Portable) IMPRESSION: No radiographic evidence of acute cardiopulmonary disease. Electronically Signed: Claudine Bartholomew MD at 12:50 EDT ,
--- NOTE | 2023-10-17 11:31 | ED.VIS.DYS ---
HPI <PJ Nathan - Last Filed: 10/17/23 15:03> History of Present Illness Chief Complaint: Shortness of Breath Narrative Narrative: 68-year-old male with past medical history of COPD was admitted to [facility] on 10/08/2023 for acute hypoxic respiratory failure secondary to COPD. He was treated with BiPAP, aerosols, and heliox as well as medications for heart failure while inpatient. He was transitioned to the TCU and was wearing 1 L nasal cannula and taking p.o. prednisone and completed doxycycline. He had a swallow study that showed a right laryngeal mass and Dr. Coleman plans to biopsy it on 10/19/2023. This morning on was on room air and received a prn aerosol treatment and his breathing worsened and he was placed back on BiPAP. Patient denies fever, chills, or chest pain. [facility] <PJ Nathan - Last Filed: 10/17/23 15:03> [facility] Medical History (Updated 10/17/23 @ 14:27 by PJ Nathan) Esophageal mass Wears dentures Wears glasses Cardiology follow-up encounter Difficulty swallowing Smoker High cholesterol Alcohol use COPD (chronic obstructive pulmonary disease) History of CHF (congestive heart failure) Home Medications ?Medication ?Instructions ?Recorded ?Last Taken ?Type atorvastatin 40 mg tablet 40 mg PO QHS Cholesterol #30 tabs 10/15/23 10/14/23 Rx furosemide 40 mg tablet 40 mg PO DAILY Fluid retention #30 10/15/23 Unknown Rx tabs lisinopril 5 mg tablet 5 mg PO DAILY BP #30 tabs 10/15/23 10/15/23 Rx prednisone 20 mg tablet 40 mg (2 x 20 mg) PO BREAKFAST 10/15/23 10/15/23 Rx Steroid #6 tabs thiamine HCl (vitamin B1) 100 mg 100 mg PO DAILYCM Supplement #30 10/15/23 10/14/23 Rx tablet (Vitamin B-1) tabs carvedilol 3.125 mg tablet (Coreg) 3.125 mg PO BID 14 days #28 tabs 10/17/23 Unknown Rx Allergy/AdvReac Type Severity Reaction Status Date / Time No Known Allergies Allergy Verified 10/15/23 15:06 Surgical History History of surgery Social History (Updated 10/15/23 @ 19:[address] Benny Brian MD) household members: none Smoking Status: Current every day smoker tobacco type: cigarettes alcohol intake: current alcohol intake frequency: 3 or more drinks per day Alcohol type: beer details: 6 24 ounce cans of beer daily. substance use type: does not use ROS <PJ Nathan - Last Filed: 10/17/23 15:03> ROS ED ROS Narrative Constitutional: Negative for fever, chills. CVS: Negative for chest pain. Respiratory: Positive for shortness of breath. GI: Negative for abdominal pain,vomiting. EXAM <PJ Nathan - Last Filed: 10/17/23 15:03> Physical Exam Narrative Exam Narrative: CONST: Patient appears comfortable in bed wearing BiPAP. EYES: Normal inspection. NECK: Normal inspection. RESP: BiPAP, no stridor, diffuse expiratory wheezing in all lung jj. CVS: Tachycardic with regular rhythm, no murmur, no gallop. ABD: Soft and nontender, no guarding or rebound, nondistended. SKIN: Color normal, no rash, warm, dry, intact. EXTREMITIES: Normal appearance, no pedal edema. NEURO: Alert and answering questions appropriately. PSYCH: Normal affect. Const Vital Signs: 10/17/23 11:12 10/17/23 11:15 10/17/23 11:16 Temperature 96.7 F L Temperature Source Temporal Pulse Rate 117 H 116 H Respiratory Rate 24 H 24 H Respiratory Effort Labored Accessory Muscle Use Respiratory Depth Deep Respiratory Pattern Tachypnea Tachypnea Blood Pressure 125/90 H Blood Pressure Mean 101 Pulse Ox 100 100 Oxygen Delivery Method Bi-pap Bi-pap Oxygen Flow Rate (L/min) Fraction of Inspired Oxygen (FIO2) 60 10/17/23 11:58 10/17/23 11:58 10/17/23 12:11 Temperature Temperature Source Pulse Rate 103 H 102 H Respiratory Rate 19 H 22 H Respiratory Effort Respiratory Depth Respiratory Pattern Tachypnea Blood Pressure 99/75 Blood Pressure Mean 83 Pulse Ox 97 Oxygen Delivery Method Bi-pap Oxygen Flow Rate (L/min) Fraction of Inspired Oxygen (FIO2) 50 10/17/23 13:00 10/17/23 13:06 10/17/23 14:00 Temperature Temperature Source Pulse Rate 98 91 Respiratory Rate 17 18 Respiratory Effort Respiratory Depth Respiratory Pattern Blood Pressure 115/73 105/72 Blood Pressure Mean 87 83 Pulse Ox 97 96 97 Oxygen Delivery Method Nasal Cannula Nasal Cannula Nasal Cannula Oxygen Flow Rate (L/min) 2 2 2 Fraction of Inspired Oxygen (FIO2) <Dr. Zohaib Méndez DO - Last Filed: 10/17/23 15:11> Physical Exam Const Vital Signs: 10/17/23 11:12 10/17/23 11:15 10/17/23 11:16 Temperature 96.7 F L Temperature Source Temporal Pulse Rate 117 H 116 H Respiratory Rate 24 H 24 H Respiratory Effort Labored Accessory Muscle Use Respiratory Depth Deep Respiratory Pattern Tachypnea Tachypnea Blood Pressure 125/90 H Blood Pressure Mean 101 Pulse Ox 100 100 Oxygen Delivery Method Bi-pap Bi-pap Oxygen Flow Rate (L/min) Fraction of Inspired Oxygen (FIO2) 60 10/17/23 11:58 10/17/23 11:58 10/17/23 12:11 Temperature Temperature Source Pulse Rate 103 H 102 H Respiratory Rate 19 H 22 H Respiratory Effort Respiratory Depth Respiratory Pattern Tachypnea Blood Pressure 99/75 Blood Pressure Mean 83 Pulse Ox 97 Oxygen Delivery Method Bi-pap Oxygen Flow Rate (L/min) Fraction of Inspired Oxygen (FIO2) 50 10/17/23 13:00 10/17/23 13:06 10/17/23 14:00 Temperature Temperature Source Pulse Rate 98 91 Respiratory Rate 17 18 Respiratory Effort Respiratory Depth Respiratory Pattern Blood Pressure 115/73 105/72 Blood Pressure Mean 87 83 Pulse Ox 97 96 97 Oxygen Delivery Method Nasal Cannula Nasal Cannula Nasal Cannula Oxygen Flow Rate (L/min) 2 2 2 Fraction of Inspired Oxygen (FIO2) MDM <PJ Nathan - Last Filed: 10/17/23 15:03> [facility] Narrative Medical decision making narrative: History gathered from: Patient, daughters Consults: Cardiology Patient was in the TCU for rehab after COPD exacerbation. After aerosol treatment this morning became acutely more short of breath was placed on BiPAP. In room 1 he is awake and alert and appears comfortable. He is tachycardic around 115 and sinus rhythm with stable blood pressure, afebrile. There is no stridor, lung jj have expiratory wheezing throughout. No signs of fluid overload. Overall blood work is unremarkable. White count 13.0, hemoglobin 13.8, normal electrolytes and renal function. EKG is nonischemic and troponin is 17. BNP 41. CXR shows no acute process. ABGs around his baseline with pH of 7.399/CO2 58.7/O2 207/bicarb 36.3. CTA shows no pulmonary embolism or acute process. Patient was weaned to 2 L nasal cannula and monitor. He feels well and is in no distress and is saturating around 97% on 2 L. At this time the etiology of his respiratory distress this morning is unclear. He was treated as a COPD exacerbation and since he is stable on 2 L be discharged back to TCU. Patient and his daughter are comfortable with this plan. Patient's chart was up for discharge when the nurse notified me had a brief run of tachycardia which appears narrow complex from 150 bpm. A-fib RVR. It lasted less than 30 seconds and he is back in sinus rhythm. It is possible that overall similar arrhythmia this morning causing his dyspnea since no other source was found. I discussed with the on-call financial services manager, Dr. Gong to see whether he would prefer medication adjustment or observation in the hospital. He recommended med adjustment with decreasing lisinopril to 2.5 once daily and adding Coreg 3.125 mg twice daily. Patient is scheduled to see cardiology outpatient. Will be discharged back to TCU with these changes. Lab Data Attestation: I reviewed the patient's lab results. Labs: Laboratory Results - last 24 hr 10/17/23 11:30 WBC 13.0 H RBC 4.53 L Hgb 13.8 Hct 43.4 MCV 95.8 H MCH 30.5 MCHC 31.8 L RDW Std Deviation 53.1 H RDW Coeff of Elidia 14.9 H Plt Count 252 MPV 10.1 Immature Gran % (Auto) 0.700 Neut % (Auto) 79.6 H Lymph % (Auto) 9.4 L Manati % (Auto) 9.4 Eos % (Auto) 0.4 Baso % (Auto) 0.5 Absolute Neuts (auto) 10.4 H Absolute Lymphs (auto) 1.22 Nucleated RBC % 0 Sodium 136 Potassium 3.7 Chloride 96 L Carbon Dioxide 36.0 H Anion Gap 4 L BUN 14 Creatinine 0.43 L Estim Creat Clear Calc 82.10 Est GFR (MDRD) Af Amer 255 Est GFR (MDRD) Non-Af 211 BUN/Creatinine Ratio 32.9 H Glucose 129 H Lactic Acid 1.0 Calcium 9.1 Troponin I High Sens 17 B-Natriuretic Peptide 41.3 ABG Data ABG results: ABG 10/17/23 12:21 Specimen Type ART Sample Site R Radial pH 7.40 Bicarbonate Actual 36.3 H Total CO2 38 Base Excess 12 H O2 Saturation 100 H O2 % 50.0 ABG pCO2 58.7 H ABG pO2 208 H Forrest Test Positive Respiration Rate 14 O2 Delivery Device BiPAP Vent Mode Not entered POC PEEP 8 Radiography Diagnostic Testing: Clinical Impression(s) from Imaging Studies Chest X-Ray 10/17/23 11:26 IMPRESSION: No radiographic evidence of acute cardiopulmonary disease. Electronically Signed: Claduine Bartholomew MD at 12:50 EDT , Chest CTA 10/17/23 12:38 IMPRESSION: No demonstrated pulmonary embolism or arterial dissection. Emphysema. Atherosclerosis. Electronically Signed: Claudine Bartholomew MD at 14:06 EDT , EKG Initial EKG: Attestation: I personally reviewed and interpreted this EKG as follows: Interpretation: No Acute Injury Pattern and Sinus Tachycardia Comments: Sinus tachycardia 108 bpm with frequent PVCs Poor baseline due to movement from BiPAP <Dr. Zohaib Méndez, DO - Last Filed: 10/17/23 15:11> [facility] MDM Narrative Medical decision making narrative: History gathered from: Patient, daughters Consults: Cardiology Patient was in the TCU for rehab after COPD exacerbation. After aerosol treatment this morning became acutely more short of breath was placed on BiPAP. In room 1 he is awake and alert and appears comfortable. He is tachycardic around 115 and sinus rhythm with stable blood pressure, afebrile. There is no stridor, lung jj have expiratory wheezing throughout. No signs of fluid overload. Overall blood work is unremarkable. White count 13.0, hemoglobin 13.8, normal electrolytes and renal function. EKG is nonischemic and troponin is 17. BNP 41. CXR shows no acute process. ABGs around his baseline with pH of 7.399/CO2 58.7/O2 207/bicarb 36.3. CTA shows no pulmonary embolism or acute process. Patient was weaned to 2 L nasal cannula and monitor. He feels well and is in no distress and is saturating around 97% on 2 L. At this time the etiology of his respiratory distress this morning is unclear. He was treated as a COPD exacerbation and since he is stable on 2 L be discharged back to TCU. Patient and his daughter are comfortable with this plan. Patient's chart was up for discharge when the nurse notified me had a brief run of tachycardia which appears narrow complex from 150 bpm. A-fib RVR. It lasted less than 30 seconds and he is back in sinus rhythm. It is possible that overall similar arrhythmia this morning causing his dyspnea since no other source was found. I discussed with the on-call financial services manager, Dr. Gong to see whether he would prefer medication adjustment or observation in the hospital. He recommended med adjustment with decreasing lisinopril to 2.5 once daily and adding Coreg 3.125 mg twice daily. Patient is scheduled to see cardiology outpatient. Will be discharged back to TCU with these changes. I have personally performed a face to face assessment of the patient and have reviewed the MONALISA Note. I performed a substantive portion of the visit including all aspects of the following. My ceja findings include: History is 68-year-old male presenting to the emergency room sudden onset of dyspnea. Recent admission to the hospital for COPD and was transferred to TCU. He is scheduled for a biopsy of a mass in his vocal cords. Reportedly respiratory was called to the TCU to give a breathing treatment. After the breathing treatment the patient reportedly went into respiratory distress and was placed on BiPAP. He was noted to be tachycardic but appeared to be sinus per reports. Currently the patient feels pretty good. Exam is there is some faint expiratory wheezing. No stridor. He does not appear anxious. Heart is regular without murmur the respiratory rate of around 95. Medical Decison Making workup including a CTA essentially negative. He was transitioned off of the BiPAP onto nasal cannula which she wears 0 to 2 L as needed. Just prior to discharge back to the TCU the patient went into a narrow complex tachycardia with a rate of her 06/01/1949. This was captured only on the monitor. I do not see any flutter or fibrillation and it was short-lived only lasting about 25 beats. I do wonder if he is having intermittent SVT which given his history of COPD and a rate of 150 could very well be a flutter with 2-1 block. We spoke with cardiology. We will make some medication changes and follow-up. There is certainly a risk that he could return back to the emergency department with persistent tachycardia. Given his upcoming surgery for the mass is felt not to require anticoagulation at this time History & Record Review Discussion w/independent historian: Patient and Family Lab Data Labs: Laboratory Results - last 24 hr 10/17/23 11:30 WBC 13.0 H RBC 4.53 L Hgb 13.8 Hct 43.4 MCV 95.8 H MCH 30.5 MCHC 31.8 L RDW Std Deviation 53.1 H RDW Coeff of Elidia 14.9 H Plt Count 252 MPV 10.1 Immature Gran % (Auto) 0.700 Neut % (Auto) 79.6 H Lymph % (Auto) 9.4 L Manati % (Auto) 9.4 Eos % (Auto) 0.4 Baso % (Auto) 0.5 Absolute Neuts (auto) 10.4 H Absolute Lymphs (auto) 1.22 Nucleated RBC % 0 Sodium 136 Potassium 3.7 Chloride 96 L Carbon Dioxide 36.0 H Anion Gap 4 L BUN 14 Creatinine 0.43 L Estim Creat Clear Calc 82.10 Est GFR (MDRD) Af Amer 255 Est GFR (MDRD) Non-Af 211 BUN/Creatinine Ratio 32.9 H Glucose 129 H Lactic Acid 1.0 Calcium 9.1 Troponin I High Sens 17 B-Natriuretic Peptide 41.3 ABG Data ABG results: ABG 10/17/23 12:21 Specimen Type ART Sample Site R Radial pH 7.40 Bicarbonate Actual 36.3 H Total CO2 38 Base Excess 12 H O2 Saturation 100 H O2 % 50.0 ABG pCO2 58.7 H ABG pO2 208 H Forrest Test Positive Respiration Rate 14 O2 Delivery Device BiPAP Vent Mode Not entered POC PEEP 8 Radiography Diagnostic Testing: Clinical Impression(s) from Imaging Studies Chest X-Ray 10/17/23 11:26 IMPRESSION: No radiographic evidence of acute cardiopulmonary disease. Electronically Signed: Claudine Bartholomew MD at 12:50 EDT , Chest CTA 10/17/23 12:38 IMPRESSION: No demonstrated pulmonary embolism or arterial dissection. Emphysema. Atherosclerosis. Electronically Signed: Claudine Bartholomew MD at 14:06 EDT , Discharge Plan Triage Chief Complaint: Shortness of Breath ED Midlevel Provider: Loraine Cross ED Provider: Zohaib Méndez Dx/Rx/DC Orders Clinical Impression: COPD exacerbation, Hypoxia Instructions: Asthma and COPD Prescriptions: New carvedilol [Coreg] 3.125 mg tablet 3.125 mg PO BID 14 Days Qty: 28 0RF Rx Instructions: must administer with a meal/food No Action furosemide 40 mg Tablet 40 mg PO DAILY Qty: 30 2RF atorvastatin 40 mg Tablet 40 mg PO QHS Qty: 30 2RF prednisone 20 mg Tablet 40 mg PO BREAKFAST Qty: 6 0RF thiamine HCl (vitamin B1) [Vitamin B-1] 100 mg Tablet 100 mg PO DAILYCM Qty: 30 2RF lisinopril 5 mg Tablet 5 mg PO DAILY Qty: 30 2RF Primary Care Provider: Care Physician,No Primary Referrals: Care Physician,No Primary [Primary Care Provider] - Activity Restrictions/Additional Instructions: Prior to discharge patient briefly went into a narrow complex tachycardic rhythm around 50, possibly A-fib. He is now back in sinus rhythm. I discussed with cardiology who recommended the following medication changes. Decrease lisinopril to 2.5 mg once a day. Add Coreg 3.125 mg twice daily. Follow-up with cardiology outpatient. Print Language: Slovenian Disposition Disposition: Home, Self Care
[2023-10-17] MEDS: MethylPREDNISolone 125 MG/2 ML Vial IV (11:44)
[2023-10-17 11:54] LABS: Absolute Lymphocyte Count 1.22 X10^3/uL (0.83-4.51); Absolute Neutrophil Count 10.4 X10^3/uL (2.0-7.7); Basophil# 0.06 X10^3/uL; Basophil% 0.5 % (0-1); Eosinophil# 0.05 X10^3/uL; Eosinophils% 0.4 % (0-5); Hematocrit 43.4 % (40-54); Hemoglobin 13.8 g/dL (13.0-16.5); Lymphocyte # 1.22 X10^3/ul (0.83-4.51); Lymphocyte % 9.4 % (19-41); Mean Corp Hgb Conc 31.8 g/dL (32-36); Mean Corpuscular Hgb 30.5 pg (27.0-32.0); Mean Corpuscular Volume 95.8 fL (80-94); Mean Platelet Vol. 10.1 fl (6.2-12.0); Monocyte# 1.22 X10^3/uL; Monocyte% 9.4 % (0-10); NRBC Flagged by Analyzer 0 % (0-5); Neutrophil # 10.35 X10^3/uL (2.7-7.7); Neutrophil % 79.6 % (47-70); Platelet Count 252 K/mm3 (150-450); RBC Distribution Width CV 14.9 % (11.6-14.6); RBC Distribution Width SD 53.1 fl (35.1-43.9); Red Blood Count 4.53 M/mm3 (4.6-6.2)
[2023-10-17] MEDS: Ipratropium/Albuterol Sulfate 3 ML AMPUL.NEB INHALATION (11:57)
[2023-10-17 12:04] LABS: Anion Gap 4 (5-15); BUN 14 mg/dL (7-18); BUN/Creat Ratio 32.9 RATIO (10-20); Calcium,Total 9.1 mg/dL (8.5-10.1); Chloride 96 mmol/L (98-107); Creatinine, Serum 0.43 mg/dL (0.70-1.30); EST Glomerular Filtration Rate 211 mL/min (>60); Est Glom Filt Rate - Afr Amer 255 mL/min (>60); Glucose 129 mg/dL (74-106); Potassium 3.7 mmol/L (3.5-5.1); Sodium Level 136 mmol/L (136-145); Troponin-I HS 17 pg/mL (3.0-78.0)
[2023-10-17 12:24] LABS: Allen Test Positive; Base Excess 12 mmol/L (-2 to +2); Bicarbonate 36.3 mmol/L (22-26); Blood Gas Specimen Type ART; Mode Not entered; O2 Delivery Device BiPAP; PEEP 8; PO2 208 mmHG (75-100); RR 14; SITE R Radial; SO2 100 % (95-99); Total Carbon Dioxide 38 mmol/L; pCO2 58.7 mmHg (35-45)
[2023-10-17 12:36] LABS: BNP,B-Type NATRIURETIC PEPTIDE 41.3 pg/mL (0-100)
--- NOTE | 2023-10-17 12:38 | CT_ITS ---
STUDY: CTA CHEST REASON FOR EXAM: Male, 68 years old. Dyspnea. Assess for pulmonary embolus. RADIATION DOSAGE (If Supplied By Facility): CTDIvol = ( 14.22 ) mGy, DLP = ( 407.26 ) mGycm TECHNIQUE: The examination was performed with the intravenous administration of IV 75mL Isovue-370. Post-processing of the angiographic images was performed, with multiplanar reformation and 3D reconstruction. The protocol utilizes one or more of the following dose reduction techniques: automated exposure control, adjustment of mA and/or kV according to patient size,and/or use of iterative reconstruction technique. COMPARISON: No relevant prior comparison study available FINDINGS: Normal enhancement of the main pulmonary artery and right and left pulmonary arteries. Normal enhancement of the bilateral peripheral pulmonary arteries. There is no demonstrated pulmonary embolism. Normal thoracic aorta and visualized great vessels. There are few peripheral calcifications of the thoracic aorta. There is no demonstrated aortic dissection. There are few calcifications of the coronary arteries. There is a small focal anterior pericardial effusion measuring 3.6 mm. Normal mediastinum. Normal hilar regions. Normal visualized trachea and bronchi. There are mild bilateral emphysematous changes. Normal chest wall structures. There are right seventh, eighth and ninth posterior lateral rib deformities consistent with healed fractures. Normal visualized upper abdomen. CT/CTA Chest W/WO Contrast IMPRESSION: No demonstrated pulmonary embolism or arterial dissection. Emphysema. Atherosclerosis. Electronically Signed: Claudine Bartholomew MD at 14:06 EDT ,
== END 2023-10-17 15:32 ==
PROVIDERS: Physician Assistant; Emergency Provider Emergency Medicine; Visit Provider Emergency Medicine
DX: J44.1 Chronic obstructive pulmonary disease with (acute) exacerbation (principal); I50.9 Heart failure, unspecified; F17.210 Nicotine dependence, cigarettes, uncomplicated
CPT/HCPCS: 96374; 99283; 36600; 71045; 71275; 80048; 82803; 83605; 83880; 84484; 85025; 93005; 94002; 94640; Q9967; A4216

== ENCOUNTER 2023-10-19 15:35 | Inpatient (IN) | payer MEDICARE, SELFPAY ==
[2023-10-19] VITALS (22 sets, daily range): BP systolic 80–147; BP diastolic 58–117; PULSE 73–105; RESP 14–28; TEMP 36.3–37; O2SAT 91–100; BMI 21.6
--- NOTE | 2023-10-19 | IMM_PTH ---
PATIENT: CHACORTA CONCEPCION LOC: ICU U#:[id number] AGE/SX: 68/M ROOM: ICU05 RE10/19/[address]: Dr. Kevin Carmona MD : 1955 BED: 1 DIS: 10/23/2023 SPEC #: [id number] RECD: 10/20/23 13:28 STATUS: LAVON REQ #: [id number] ALEKS: 10/19/23 00:[address]: Syd Coleman DEPT: IMMUNOHISTOCHEMISTRY RECD BY: Severo Pike ENTERED: 10/20/23 13:29 SP TYPE: IMMUNO OTHR DR: MD Dr. Dequan He MD Dr. Derek Brown, DO Dr. David Kittoe, MD Dr. Edward Matheis, MD Dr. Gautam Baskaran, MD Dr. Yordanos Habtegebriel, MD Dr. Hemant Dand, MD Dr. Kimber Foust, MD Dr. Lamia Aljundi, MD Dr. Nana Yaa Koram, MD Dr. Pritam Ghosh, MD Dr. Pavan Irukulla, MD Dr. Saad Farooqi, MD Dr. Vikram Anand, MD Dr. William Haden, MD No Primary Care Phys Tissues: Laryngeal cavity Procedures: CK20 (add) CK5-6 (add) CK7 (add) P16 (add) P53 (add) Vimentin (add) Pankeratin (initial) P40 (add) Comments: @ Ordering doctor for CK20. edited from to @ by LIZZY at 10/20/23 1329 @ Ordering doctor for CK5-6. edited from to @ by LIZZY at 10/20/23 1329 @ Ordering doctor for P16. edited from to @ by MRTRUPTI at 10/20/23 1329 @ Ordering doctor for P53. edited from to @ by MRTRUPTI at 10/20/23 1329 @ Ordering doctor for VIM. edited from to @ by MRTRUPTI at 10/20/23 1329 @ Ordering doctor for PANK edited from to @ by MRTRUPTI at 10/20/23 1329 @ Ordering doctor for P40. edited from to @ by LIZZY at 10/20/23 1329 @ Submitting doctor edited from to @ by LIZZY at 10/20/23 1329 PHYSICIAN & [place] [id number] SPECIMEN INFORMATION: Tissue Source: Laryngeal mass biopsy Clinical Info: Laryngeal mass Specimen Number: [id number] CPT code: 57352,[id number] METHODOLOGY: Deparaffinized sections of prefer/formalin-fixed tissue or PAP/DQ stained slides are incubated with monoclonal/polyclonal antibodies/oligonucleotide probes. Localization is made via biotin free immunoperoxidase method. Appropriate controls are performed and reacted as expected. Results on target cell population are indicated in the following table: RESULTS: ANTIBODY / CLONE RESULT AE1-3 (AE1/AE3/PCK26) positive CK7 (OV-TL12/30) negative CK20 (KS20.8) negative Vimentin (V9) negative CK5-6 (D5 & 1684) positive P40 (BC28) positive P16 (E6H4) negative These tests were developed and their performance characteristics determined by [facility]. They may not have been cleared or approved by the U.S. Food and Drug Administration. The FDA has determined that such clearance or approval is not necessary. The above immunohistochemical/dualISH markers are ordered and reviewed by the Pathologist. INTERPRETATION: Laryngeal mass, biopsy: Fragments of squamous cell carcinoma. LUCAS/ 10/21/2023
--- NOTE | 2023-10-19 | LARBX_PTH ---
PATIENT: CHACORTA CONCEPCION LOC: [facility] U#:[id number] AGE/SX: 68/M ROOM: [facility] RE10/19/[address]: Dr. Kevin Carmona MD : 1955 BED: 1 DIS: 10/23/2023 SPEC #: [id number] RECD: 10/19/23 13:49 STATUS: LAVON FRANCISCO J #: [id number] ALEKS: 10/19/23 00:[address]: Syd Coleman DEPT: SURGICAL PATHOLOGY RECD BY: Nba Ledbetter ENTERED: 10/19/23 13:49 SP TYPE: LARYNX BX OTHR DR: No Primary Care Phys Tissues: Laryngeal cavity Procedures: Surgery Specimen Level IV HEADER OPERATION: Biopsy mass, direct laryngoscopy with biopsy PRE-OP DIAGNOSIS: Laryngeal mass TISSUE SUBMITTED: Laryngeal mass biopsy MICROSCOPIC DIAGNOSIS Laryngeal mass, biopsy: Fragments of squamous cell carcinoma. See comment. LUCAS/ 10/20/2023 COMMENT Immunohistochemistry ([id number]) supports the above diagnosis. Focal invasive carcinoma is suspected. Clinical correlation is suggested. MICROSCOPIC DESCRIPTION Slides are reviewed. GROSS DESCRIPTION Received in fixative is one container labeled with the patient's name and designated Laryngeal mass biopsy. The specimen consists of multiple irregular fragments of red-white soft tissue measuring in aggregate 2.2 x 2.0 x 0.2cm. The specimen is submitted in its entirety in one cassette. AM/mr 10/19/2023 TC:0 CPT:39296
[2023-10-19] MEDS: Lactated Ringers 1,000 ML 15 ML IV (11:11)
--- NOTE | 2023-10-19 11:47 | PCM.DC.SUM ---
Providers Primary Care Physician: No Primary Care Phys Medications at Discharge Home Medications atorvastatin 40 mg tablet 40 mg PO QHS Cholesterol #30 tabs 10/15/23 furosemide 40 mg tablet 40 mg PO DAILY Fluid retention #30 tabs 10/15/23 lisinopril 5 mg tablet 5 mg PO DAILY BP #30 tabs 10/15/23 prednisone 20 mg tablet 40 mg (2 x 20 mg) PO BREAKFAST Steroid #6 tabs 10/15/23 thiamine HCl (vitamin B1) 100 mg tablet (Vitamin B-1) 100 mg PO DAILYCM Supplement #30 tabs 10/15/23 carvedilol 3.125 mg tablet (Coreg) 3.125 mg PO BID 14 days #28 tabs 10/17/23 Weight / BMI Weight Weight: 62.596 kg Body Mass Index (BMI) 21.6 D/C Instructions Discharge Diet: No restrictions Discharge Activity: Return to Normal Activity Please Follow Up With: Syd Coleman MD When: next week Meaningful Use Info Meaningful Use Meaningful Use Diagnoses (Choose all that apply): None applicable Ischemic Stroke Statin Dosing Therapy Reference: STATIN DOSE THERAPY REFERENCE: * Patients > 75 years receive moderate or high dose statin therapy. * Patients 75 years or YOUNGER should receive HIGH intensity statin dose unless contraindicated. You will be required to document reason for non-treatment if statin daily dose does not meet guidelines. HIGH DOSE STATIN THERAPY DAILY Atorvastatin > than or = to 40 mg Rosuvastatin > than or = to 20 mg Amlodipine + Atorvastatin > than or = to 2.5/40 mg Ezetimibe + Simvastatin 10/80 mg Simvastatin 80mg Discharge Plan Admission Attending Provider: Syd Coleman Primary Care Provider: Care Physician,No Primary Instructions Print Language: Occitan Discharge Orders/Prescriptions Prescriptions: No Action furosemide 40 mg Tablet 40 mg PO DAILY Qty: 30 2RF atorvastatin 40 mg Tablet 40 mg PO QHS Qty: 30 2RF prednisone 20 mg Tablet 40 mg PO BREAKFAST Qty: 6 0RF thiamine HCl (vitamin B1) [Vitamin B-1] 100 mg Tablet 100 mg PO DAILYCM Qty: 30 2RF lisinopril 5 mg Tablet 5 mg PO DAILY Qty: 30 2RF carvedilol [Coreg] 3.125 mg tablet 3.125 mg PO BID 14 Days Qty: 28 0RF Rx Instructions: must administer with a meal/food Referrals / Follow Up: Care Physician,No Primary [Primary Care Provider] - Disposition Disposition (needs filled in before D/C Order can be placed): Home, Self Care
--- NOTE | 2023-10-19 11:48 | PCM.OPRPT ---
Report of Operation Date of Procedure: 10/19/23 Pre-Operative Diagnosis: laryngeal mass Post-Operative Diagnosis: same Surgery/Procedure Performed:: Direct laryngoscopy with biopsy Surgeon: Syd Coleman Type of Anesthesia: General Anesthesiologist: Dominic Brooks Estimated Blood Loss (mL): minimal Description of Procedure: The patient was taken to the operating room on 10/19/2023. He was placed in the supine position on the operating room table. He was given sufficient general endotracheal anesthesia. The table was turned 90 degrees in a clockwise fashion. A gum guard was placed on the upper gingiva. A Dedo laryngoscope inserted the patient's mouth and then into the oropharynx. The larynx was exposed. The piriform sinuses were normal. The epiglottis was normal. The left true vocal cord showed Ranke's edema. 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 It definitely extended to involve the anterior commissure. Multiple biopsies were taken of the mass using cup forceps. These were sent for permanent section. Hemostasis was achieved with adrenaline soaked Codman's. Once hemostasis was achieved the Codman's were removed. All instrumentation was then removed. The patient is then awoken and brought to recovery room in stable condition. Blood loss minimal, replacement none. Sponge, needle, and instrument count were correct at the end of the procedure.
[2023-10-19] MEDS: Epinephrine (1 mg/ml) 1 MG/ML VIAL (12:15)
--- NOTE | 2023-10-19 12:58 | SUR.PHASEI ---
PT TACHYPNEIC AND AUDIBLY STRIDOROUR. DR NAQVI AND DR QUEEN AT BEDSIDE. PT TO GO BACK TO OR FOR TRACHEOSTOMY. FAMILY NOTIFED PER CHARGE NURSE, KATHERINE. PT TAKEN TO OR BY DR TAYLOR AND DR NAQVI, BEGAN BAGGING PATIENT WHILE LEAVING PACU.
[2023-10-19] MEDS: Lidocaine 1% /Epi 1:100 (20ml) 20 ML Vial (13:42)
--- NOTE | 2023-10-19 13:58 | PCM.OPRPT ---
Report of Operation Date of Procedure: 10/19/23 Pre-Operative Diagnosis: laryngeal mass, respiratory failure Post-Operative Diagnosis: same Surgery/Procedure Performed:: tracheotomy Surgeon: Syd Coleman Type of Anesthesia: General Anesthesiologist: Dominic Brooks Estimated Blood Loss (mL): 3 cc Description of Procedure: The patient was taken from the recovery room with worsening stridor and imminent respiratory failure. Consent was obtained from the daughter. He was brought to the operating room and intubated by anesthesia. He was placed in supine position on the operating room table. He was given sufficient general anesthesia. The neck was prepped and draped sterilely. 1% lidocaine with epinephrine injected into the skin overlying the intended surgical incision site. An incision was made with 15 blade. This was carried down through to the subcutaneous tissue. Subcutaneous lipectomy was then performed using Bovie cautery. A large vein was clamp cut and ligated with 3-0 silk. The midline raphae was identified. The strap muscles were lateralized with Allis clamps. The cricoid cartilage was identified. A cricoid hook was used to the superiorize the trachea. The thyroid isthmus was clamped cut and ligated with 2-0 chromic. Thee first and second tracheal rings appeared to be fused. Thus, I elected to remove the third tracheal ring. Incisions were made in the trachea with a 15 blade and the anterior aspect of the third tracheal ring was removed with Styles scissors. The fourth tracheal ring was split. A #8 Shiley cuffed tracheotomy tube was inserted into the trachea. The cuff was inflated. The anesthesia circuit was hooked to the tracheotomy tube and immediate visualization of CO2 was seen. The tracheotomy was sewn to the skin with 2-0 silk. Trach ties were placed around the patient's neck and the tracheotomy was tied as well. He was removed from the care unit in stable condition. Blood loss minimal, replacement none. Sponge, needle and instrument count were correct at the end of the procedure.
[2023-10-19] MEDS: Propofol 10MG/Ml 1,000 MG/100 ML Bottle 3.8 MG CONT INF (15:00)
[2023-10-19] MEDS: fentaNYL drip 100 ML 5 MCG CONT INF (15:00)
--- NOTE | 2023-10-19 15:08 | PCM.PN.BLA ---
Progress Note POST OP CHECK sedated on the ventilator sat 95% trach in place. no bleeding. cuff up chest xray pending A:laryngeal mass s/p biopsy and tracheotomy P: admit per the hospitalist. He will need a PET scan and radiation oncology consultation in the near future.
--- NOTE | 2023-10-19 15:17 | PCM.HP.STD ---
[facility] - General General Date of Service: 10/19/23 Chief Complaint: post op respiratory failure [facility] Narrative CHACORTA CONCEPCION, is a 68 M with a past medical history as outlined who was admitted to the ICU after he had a direct laryngoscopy with biopsy of left laryngeal mass today. Patient is known to me from his most recent admission when he was admitted for shortness of breath and stridor. He was managed for COPD exacerbation. During that admission he had fiberoptic swallowing study by speech therapy which showed a right vocal cord mass. ENT was therefore consulted and plan was for patient to have a direct laryngoscopy today by ENT. He was discharged to a halfway facility and came in for the direct laryngoscopy today. I was contacted by the ENT surgeon Dr. Conway that patient developed severe stridor after the biopsy was done and so he had to have an emergency trach put in; he was then put on the ventilator and admitted to the ICU under the service of hosopitalist. Patient was seen in the ICU. He was intubated via tracheostomy. Unable to do review of systems. His BP was running low, at 61/48 at time of my evaluation. Per his nurse, she had just increased his propofol infusion because he had been agitated on arrival in the ICU, and this was likely what had caused his BP to go down. Vitals were otherwise stable. No labs had been done. He is being admitted to be managed for post biopsy acute hypoxic respiratory failure in the setting of biopsy of right laryngeal mass, likely malignant. [facility] Medical History (Updated 10/17/23 @ 14:27 by PJ Nathan) Esophageal mass Wears dentures Wears glasses Cardiology follow-up encounter Difficulty swallowing Smoker High cholesterol Alcohol use COPD (chronic obstructive pulmonary disease) History of CHF (congestive heart failure) Home Medications ?Medication ?Instructions ?Recorded ?Last Taken ?Type atorvastatin 40 mg tablet 40 mg PO QHS Cholesterol #30 tabs 10/15/23 10/14/23 Rx furosemide 40 mg tablet 40 mg PO DAILY Fluid retention #30 10/15/23 Unknown Rx tabs lisinopril 5 mg tablet 5 mg PO DAILY BP #30 tabs 10/15/23 10/15/23 Rx prednisone 20 mg tablet 40 mg (2 x 20 mg) PO BREAKFAST 10/15/23 10/15/23 Rx Steroid #6 tabs thiamine HCl (vitamin B1) 100 mg 100 mg PO DAILYCM Supplement #30 10/15/23 10/14/23 Rx tablet (Vitamin B-1) tabs carvedilol 3.125 mg tablet (Coreg) 3.125 mg PO BID 14 days #28 tabs 10/17/23 Unknown Rx Allergy/AdvReac Type Severity Reaction Status Date / Time No Known Allergies Allergy Verified 10/19/23 11:06 Surgical History History of surgery Social History (Updated 10/15/23 @ 19:[address] Benny Brian MD) household members: none Smoking Status: Current every day smoker tobacco type: cigarettes alcohol intake: current alcohol intake frequency: 3 or more drinks per day Alcohol type: beer details: 6 24 ounce cans of beer daily. substance use type: does not use ROS Review of Systems ROS Unobtainable: due to encephalopathy and due to endotracheal tube Constitutional Constitutional: Reports anorexia Vital Signs Vital Signs Vital Signs: 10/19/23 11:06 10/19/23 11:06 10/19/23 12:42 Temperature 98.6 F 97.9 F Temperature Source Temporal Temporal Pulse Rate 82 98 Respiratory Rate 16 28 H Respiratory Pattern Normal Tachypnea Blood Pressure 109/78 142/104 H Blood Pressure Mean 88 116 Blood Pressure Source Monitor Monitor Blood Pressure Position Semi-Fowlers Semi-Fowlers Blood Pressure Location Left Arm Right Arm Baseline BP 109/78 Pulse Ox 100 100 Oxygen Delivery Method Nasal Cannula Simple Mask Oxygen Flow Rate (L/min) 2 6 Fraction of Inspired Oxygen (FIO2) 10/19/23 12:45 10/19/23 12:50 10/19/23 12:55 Temperature Temperature Source Pulse Rate 100 98 105 H Respiratory Rate 26 H 16 28 H Respiratory Pattern Blood Pressure 133/117 H 147/87 H 144/89 H Blood Pressure Mean 122 107 107 Blood Pressure Source Monitor Monitor Monitor Blood Pressure Position Semi-Fowlers Semi-Fowlers Semi-Fowlers Blood Pressure Location Right Arm Right Arm Right Arm Baseline BP 109/78 109/78 109/78 Pulse Ox 100 99 99 Oxygen Delivery Method Simple Mask Simple Mask Simple Mask Oxygen Flow Rate (L/min) 6 6 6 Fraction of Inspired Oxygen (FIO2) 10/19/23 14:20 Temperature Temperature Source Pulse Rate 96 Respiratory Rate 20 H Respiratory Pattern Blood Pressure Blood Pressure Mean Blood Pressure Source Blood Pressure Position Blood Pressure Location Baseline BP Pulse Ox 97 Oxygen Delivery Method Oxygen Flow Rate (L/min) Fraction of Inspired Oxygen (FIO2) 40 Weight Weight: 137 lb 12.623 oz Body Mass Index (BMI) 21.6 Physical Exam Narrative intubated, sedated, RASS score is -4. Const Constitutional Narrative: intubated, sedated HEENT normocephalic HEENT Narrative: tracheostomy in place Eyes PERRL Resp Resp Narrative: intubated, on ventilator via tracheostomy. RASS score is -4. Diminished breath sounds bilaterally, no wheezes or crackles. Cardio regular rate, regular rhythm, S1 normal heart sound, S2 normal heart sound and no murmurs GI normal to inspection, nondistended, normoactive bowel sounds, soft to palpation and non-tender Extremity normal to inspection Neuro Neuro Narrative: intubated, sedated, RASS score is -4 Results Lab / Micro Data 10/19/23 17:50 10/19/23 15:15 Assessment & Plan Assessment/Plan (1) Hypoxia: (2) Laryngeal mass: (3) Acute hypoxic respiratory failure: PLAN: Plan #Acute hypoxic respiratory failure due to stridor from post op larygngeal mass biopsy Patient had an emergent trach inserted after he had the biopsy done in the OR as he developed severe stridor. Currently on the ventilator with a tracheostomy. Consult to critical care. ENT already on board. Titrate oxygen to maintain saturation above 90%. Breathing treatments bronchodilators. 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 Biopsy results pending. #History of heart failure with reduced ejection fraction: Has known EF of 40%. On Lasix and lisinopril. #Hyperlipidemia: On statin #DVT prophylaxis: lovenox CODE STATUS: Unable to determine CODE STATUS as he is currently intubated. Will therefore please presumptively has full code. Total time spent on evaluation and management of patient, reviewing chart and specialist notes, discussion with nursing and ancillary staff as well as documentation: 77 mins Charges/Coding Visit Charges Inpatient E&M: 25166 Init Hosp L3 Procedures Hospitalists Procedures: 76687 Critical Care 1st Hr
[2023-10-19 15:55] LABS: CPK Total, Creatine Kinase 78 U/L (39-308); Triglycerides 147 mg/dL
[2023-10-19 15:56] LABS: Allen Test Positive; Base Excess 10 mmol/L (-2 to +2); Bicarbonate 33.9 mmol/L (22-26); Blood Gas Specimen Type ART; Mode AC; O2 Delivery Device Adult Vent; PEEP 5; PO2 79 mmHG (75-100); RR 14; SITE R Radial; SO2 96 % (95-99); Total Carbon Dioxide 35 mmol/L; pCO2 50.1 mmHg (35-45); pH 7.44 (7.35-7.45)
--- NOTE | 2023-10-19 16:45 | RAD_ITS ---
INDICATION: s/p tracheotomy evaluate for pneumothorax EXAMINATION/TECHNIQUE: X-RAY - XR Chest 1 View COMPARISON: October 17, 2023 FINDINGS: LINES/DEVICES: Interval placement of a tracheostomy tube. LUNGS: No consolidation, edema or effusion. No pneumothorax. MEDIASTINUM AND CARDIOVASCULAR STRUCTURES: Cardiac silhouette not enlarged. Central airways and mediastinal contour are unremarkable. BONES AND SOFT TISSUES: Unremarkable. RAD/Chest 1 View (Portable) IMPRESSION: Interval placement of a tracheostomy tube. Electronically Signed: Owen Colorado DO at 17:26 EDT ,
[2023-10-19 18:07] LABS: ALB/GLOB Ratio 0.8 RATIO (0.9-2.4); AST(SGOT) 57 U/L (15-37); Alanine Aminotransfer ALT/SGPT 121 U/L (16-61); Albumin, Serum 2.9 g/dL (3.2-5.0); Alkaline Phosphatase 62 U/L (45-117); Anion Gap 6 (5-15); BUN 16 mg/dL (7-18); BUN/Creat Ratio 27.7 RATIO (10-20); Calcium,Total 8.6 mg/dL (8.5-10.1); Chloride 99 mmol/L (98-107); Creatinine, Serum 0.58 mg/dL (0.70-1.30); EST Glomerular Filtration Rate 149 mL/min (>60); Est Glom Filt Rate - Afr Amer 180 mL/min (>60); Estimated Creatinine Clearance 78.13 ml/min; Globulin 3.5 g/dL (2.2-4.2); Glucose 120 mg/dL (74-106); Potassium 4.1 mmol/L (3.5-5.1); Protein, Total 6.4 g/dL (6.4-8.2); Sodium Level 138 mmol/L (136-145)
[2023-10-19] MEDS: Ipratropium/Albuterol Sulfate 3 ML AMPUL.NEB INHALATION (19:01)
[2023-10-19 19:14] LABS: Absolute Lymphocyte Count 0.87 X10^3/uL (0.83-4.51); Absolute Neutrophil Count 10.6 X10^3/uL (2.0-7.7); Basophil# 0.02 X10^3/uL; Basophil% 0.2 % (0-1); Hemoglobin 12.8 g/dL (13.0-16.5); Lymphocyte # 0.87 X10^3/ul (0.83-4.51); Lymphocyte % 7.2 % (19-41); Mean Corp Hgb Conc 32.8 g/dL (32-36); Mean Corpuscular Hgb 31.1 pg (27.0-32.0); Mean Corpuscular Volume 94.7 fL (80-94); Monocyte% 4.9 % (0-10); NRBC Flagged by Analyzer 0 % (0-5); Neutrophil % 87.3 % (47-70); Platelet Count 278 K/mm3 (150-450); RBC Distribution Width CV 14.6 % (11.6-14.6); RBC Distribution Width SD 50.7 fl (35.1-43.9); Red Blood Count 4.12 M/mm3 (4.6-6.2); White Blood Count 12.1 K/mm3 (4.4-11.0)
[2023-10-20] VITALS (20 sets, daily range): BP systolic 88–142; BP diastolic 63–78; PULSE 78–103; RESP 12–21; TEMP 36.4–37.1; O2SAT 94–100; BMI 22.1
[2023-10-20] MEDS: fentaNYL drip 100 ML 10 MCG CONT INF (00:58)
[2023-10-20 04:14] LABS: Absolute Lymphocyte Count 2.07 X10^3/uL (0.83-4.51); Absolute Neutrophil Count 7.4 X10^3/uL (2.0-7.7); Basophil# 0.03 X10^3/uL; Basophil% 0.3 % (0-1); Eosinophil# 0.04 X10^3/uL; Eosinophils% 0.4 % (0-5); Hematocrit 38.4 % (40-54); Hemoglobin 12.8 g/dL (13.0-16.5); Lymphocyte # 2.07 X10^3/ul (0.83-4.51); Lymphocyte % 19.2 % (19-41); Mean Corp Hgb Conc 33.3 g/dL (32-36); Mean Corpuscular Hgb 31.2 pg (27.0-32.0); Mean Corpuscular Volume 93.7 fL (80-94); Monocyte# 1.19 X10^3/uL; NRBC Flagged by Analyzer 0 % (0-5); Neutrophil # 7.39 X10^3/uL (2.7-7.7); Neutrophil % 68.6 % (47-70); Platelet Count 269 K/mm3 (150-450); RBC Distribution Width CV 14.6 % (11.6-14.6); RBC Distribution Width SD 50.7 fl (35.1-43.9); White Blood Count 10.8 K/mm3 (4.4-11.0)
[2023-10-20 04:37] LABS: Anion Gap 7 (5-15); BUN 19 mg/dL (7-18); BUN/Creat Ratio 37.1 RATIO (10-20); Calcium,Total 8.5 mg/dL (8.5-10.1); Chloride 100 mmol/L (98-107); Creatinine, Serum 0.51 mg/dL (0.70-1.30); EST Glomerular Filtration Rate 171 mL/min (>60); Est Glom Filt Rate - Afr Amer 207 mL/min (>60); Estimated Creatinine Clearance 78.13 ml/min; Glucose 92 mg/dL (74-106); Potassium 3.9 mmol/L (3.5-5.1); Sodium Level 137 mmol/L (136-145)
[2023-10-20] MEDS: Ipratropium/Albuterol Sulfate 3 ML AMPUL.NEB INHALATION ×4 (06:44→19:55)
--- NOTE | 2023-10-20 06:58 | EX.PCM.CONCC ---
Assessment & Plan Assessment/Plan (1) Acute hypoxic respiratory failure: (2) Laryngeal mass: PLAN: Plan RECOMMENDATIONS: 1. Transition to humidified trach collar supplemental O2. Wean FiO2 for saturations greater than 90%. 2. Speech therapy evaluation prior to advancement of diet. 3. Continue bronchodilators. 4. Continue appropriate DVT prophylaxis. 5. Mobilize patient as tolerated. 6. The patient is medically stable for transfer out of the intensive care unit. IMPRESSIONS: 1. Acute hypoxemic respiratory failure Most likely secondary to airway obstruction following biopsy, necessitating tracheotomy. The patient is doing remarkably well this morning from a respiratory perspective. He passed his spontaneous breathing trial and was therefore transition to humidified trach collar supplemental O2. He will be continued on scheduled bronchodilator, given his tobacco abuse history. The patient is otherwise clinically stable. Recommend formal speech therapy evaluation, prior to consideration for advancement of diet. 2. Laryngeal mass status postbiopsy/history of heart failure with reduced ejection fraction/hyperlipidemia/tobacco and alcohol dependency Complicates care, management, recovery and prognosis. Continue supportive measures as noted above. This note was generated with [employer] dictation software. It may contain incorrect words, spelling, and punctuation that were not noted in checking the note before signing. HPI Consult Data Date of Consult: 10/20/23 HPI Narrative Reason for Consultation: Respiratory failure HPI Narrative: The patient is a 68-year-old male, with a history as outlined below, who presented from the transitional care unit to undergo direct laryngoscopy with biopsy secondary to a known history of laryngeal mass. 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 The patient has a known history of tobacco dependency with advanced age COPD and history of alcohol dependency. His medical history is also complicated by heart failure with reduced ejection fraction. Ultimately, the patient was taken to the OR on the afternoon of October 18 for his biopsy. Following this, the patient was taken to the PACU, where he apparently experienced worsening stridor and decompensated from a respiratory perspective. The patient was taken back to the OR by Dr. Escobedo of ENT, where a tracheotomy was performed. A #8 cuffed Shiley tracheostomy tube was placed. Postprocedure, the patient was sent to the medical intensive care unit for ongoing management. Overnight, there were no reported issues. This morning, the patient has done well on spontaneous mode of mechanical ventilation with minimal FiO2 requirement. He is alert and appropriately interactive. White blood cell count is normal this morning. Hemoglobin and platelet count are stable. Chemistry profile was within normal limits. Following my evaluation of the patient this morning he was able to be transition to [facility], without complication. [facility] Medical History (Updated 10/17/23 @ 14:27 by PJ Nathan) Esophageal mass Wears dentures Wears glasses Cardiology follow-up encounter Difficulty swallowing Smoker High cholesterol Alcohol use COPD (chronic obstructive pulmonary disease) History of CHF (congestive heart failure) Home Medications ?Medication ?Instructions ?Recorded ?Last Taken ?Type atorvastatin 40 mg tablet 40 mg PO QHS Cholesterol #30 tabs 10/15/23 10/14/23 Rx furosemide 40 mg tablet 40 mg PO DAILY Fluid retention #30 10/15/23 Unknown Rx tabs lisinopril 5 mg tablet 5 mg PO DAILY BP #30 tabs 10/15/23 10/15/23 Rx prednisone 20 mg tablet 40 mg (2 x 20 mg) PO BREAKFAST 10/15/23 10/15/23 Rx Steroid #6 tabs thiamine HCl (vitamin B1) 100 mg 100 mg PO DAILYCM Supplement #30 10/15/23 10/14/23 Rx tablet (Vitamin B-1) tabs carvedilol 3.125 mg tablet (Coreg) 3.125 mg PO BID 14 days #28 tabs 10/17/23 Unknown Rx Allergy/AdvReac Type Severity Reaction Status Date / Time No Known Allergies Allergy Verified 10/19/23 11:06 Surgical History History of surgery Social History (Updated 10/15/23 @ 19:[address] Benny Brian MD) household members: none Smoking Status: Current every day smoker tobacco type: cigarettes alcohol intake: current alcohol intake frequency: 3 or more drinks per day Alcohol type: beer details: 6 24 ounce cans of beer daily. substance use type: does not use ROS ROS Narrative Unable to obtain due to tracheostomy tube. Physical Exam Const alert and no apparent distress General Appearance: cooperative HEENT normocephalic and head/scalp atraumatic HEENT Narrative: Stable appearing tracheostomy site. Eyes PERRL, EOMs intact bilaterally and conjunctivae normal Neck supple General: trachea midline Chest inspection of chest normal Resp normal respiratory effort Auscultation: diminished lung sounds; Negative for rales, rhonchi or wheezes Cardio regular rate and regular rhythm GI normal to inspection, nondistended, normoactive bowel sounds Extremity no clubbing, cyanosis or edema Skin no rashes or lesions noted Neuro CN's II-XII intact bilaterally, moves all extremities and no focal motor deficits Psych cooperative Medical Records Data Medical Nutrition Assessment Dietitian: Malnutrition Criteria Met Start: 10/19/23 17:00 Freq: Status: Active Protocol: Document 10/19/23 17:00 RMA (Rec: 10/19/23 17:01 RMA [id number]) Nutrition Malnutrition Evidence of Malnutrition Exists Yes Malnutrition (severe): Acute Illness/Injury Evidenced By Suboptimal Energy Intake ( Severe),Weight Loss (Severe) Intake Problem Inadequate Oral Intake Etiology related to swallowing difficulty Signs/Symptoms as evidenced by currently NPO and PO meeting less than 50% estimated nutrition needs x 2 weeks Status Active Problem Clinical Problem Acute Disease or Injury Related Malnutrition Etiology Severe protein-calorie malnutrition in the context of acute illness related to inadequate oral/energy intake and swallowing difficulty Signs/Symptoms as evidenced by BMI 21.6, PO meeting less than 50% estimated nutrition needs x 2 weeks and ~5% unintentional weight loss in less than 1 month Status Active Problem Recommendation Dietitian Recommendations/Changes Regular diet as tolerated with consistency/texture as per THIMBLE PRESS OPERATOR. Enteral nutrition support if PO contraindicated in next 24- 48 hours. Ensure plus HP as able to take PO nutrition. Follow-up with labs and possible TF support in 24 hours. Lab / Micro Data 10/20/23 03:55 10/20/23 03:55 Labs: Laboratory Results - last 24 hr 10/19/23 15:15: Sodium 138, Potassium 4.1, Chloride 99, Carbon Dioxide 33.0 H, Anion Gap 6, BUN 16, Creatinine 0.58 L, Estim Creat Clear Calc 78.13, Est GFR (MDRD) Af Amer 180, Est GFR (MDRD) Non-Af 149, BUN/Creatinine Ratio 27.7 H, Glucose 120 H, Calcium 8.6, Total Bilirubin 0.40, AST 57 H, ALT 121 H, Alkaline Phosphatase 62, Total Creatine Kinase 78, Total Protein 6.4, Albumin 2.9 L, Globulin 3.5, Albumin/Globulin Ratio 0.8 L, Triglycerides 147 10/19/23 17:50: WBC 12.1 H, RBC 4.12 L, Hgb 12.8 L, Hct 39.0 L, MCV 94.7 H, MCH 31.1, MCHC 32.8, RDW Std Deviation 50.7 H, RDW Coeff of Elidia 14.6, Plt Count 278, MPV 11.0, Immature Gran % (Auto) 0.400, Neut % (Auto) 87.3 H, Lymph % (Auto) 7.2 L, [place] % (Auto) 4.9, Eos % (Auto) 0.0, Baso % (Auto) 0.2, Absolute Neuts (auto) 10.6 H, Absolute Lymphs (auto) 0.87, Nucleated RBC % 0 10/20/23 03:55: WBC 10.8, RBC 4.10 L, Hgb 12.8 L, Hct 38.4 L, MCV 93.7, MCH 31.2, MCHC 33.3, RDW Std Deviation 50.7 H, RDW Coeff of Elidia 14.6, Plt Count 269, MPV 10.0, Immature Gran % (Auto) 0.500, Neut % (Auto) 68.6, Lymph % (Auto) 19.2, [place] % (Auto) 11.0 H, Eos % (Auto) 0.4, Baso % (Auto) 0.3, Absolute Neuts (auto) 7.4, Absolute Lymphs (auto) 2.07, Nucleated RBC % 0, Sodium 137, Potassium 3.9, Chloride 100, Carbon Dioxide 30.0, Anion Gap 7, BUN 19 H, Creatinine 0.51 L, Estim Creat Clear Calc 78.13, Est GFR (MDRD) Af Amer 207, Est GFR (MDRD) Non-Af 171, BUN/Creatinine Ratio 37.1 H, Glucose 92, Calcium 8.5 ABG Data ABG results: ABG 10/19/23 15:52 Specimen Type ART Sample Site R Radial pH 7.44 Bicarbonate Actual 33.9 H Total CO2 35 Base Excess 10 H O2 Saturation 96 O2 % 40.0 ABG pCO2 50.1 H ABG pO2 79 Forrest Test Positive Respiration Rate 14 O2 Delivery Device Adult Vent Vent Mode AC Tidal Volume 450.0 POC PEEP 5 Imaging Radiology Impression Chest X-Ray 10/19/23 16:45 IMPRESSION: Interval placement of a tracheostomy tube. Electronically Signed: Owen Colorado DO at 17:26 EDT Reading Location ID and State: [facility] / [place] Tel [phone], Service support , Charges/Coding Visit Charges Inpatient E&M: 19041 Init Hosp L3
--- NOTE | 2023-10-20 07:16 | PCM.PN.HOSP ---
Reason for Visit Reason for Visit: Diagnoses Other diseases of larynx (10/19/23) Acute respiratory failure with hypoxia (10/19/23) Hypoxemia (10/19/23) Subjective Subjective Patient is a 68-year-old gentleman with history of laryngeal mass who underwent biopsy on 10/19/[address] Syd Escobedo, patient postoperative period complicated by worsening stridor resulting in patient being taken back to the OR where tracheostomy was performed. Subsequently admitted to the intensive care unit for further management Objective Data Objective Data Vital Signs: Vital Signs Temp Pulse Resp BP Pulse Ox O2 Del Method O2 Flow Rate 97.9 F 89 17 103/70 96 Mechanical Ventilator 5 10/20/23 00:00 10/20/23 07:00 10/20/23 07:00 10/20/23 07:00 10/20/23 07:00 10/20/23 07:00 10/20/23 01:00 FiO2 25 10/20/23 07:00 Oxygen Flow Rate (L/min) 5 Oxygen Delivery Method Mechanical Ventilator Weight: 64.2 kg Body Mass Index (BMI) 22.1 Intake & Output: Intake and Output for Last 24 Hours 10/18/23 10/19/23 10/20/23 23:59 23:59 23:59 Intake Total 558.64 / 568.64 263.00 / 263.00 Output Total 250 / 250 Balance 558.64 / 568.64 13.00 / 13.00 Medical Nutrition Assessment Dietitian: Malnutrition Criteria Met Start: 10/19/23 17:00 Freq: Status: Active Protocol: Document 10/19/23 17:00 RMA (Rec: 10/19/23 17:01 RMA [id number]) Nutrition Malnutrition Evidence of Malnutrition Exists Yes Malnutrition (severe): Acute Illness/Injury Evidenced By Suboptimal Energy Intake ( Severe),Weight Loss (Severe) Intake Problem Inadequate Oral Intake Etiology related to swallowing difficulty Signs/Symptoms as evidenced by currently NPO and PO meeting less than 50% estimated nutrition needs x 2 weeks Status Active Problem Clinical Problem Acute Disease or Injury Related Malnutrition Etiology Severe protein-calorie malnutrition in the context of acute illness related to inadequate oral/energy intake and swallowing difficulty Signs/Symptoms as evidenced by BMI 21.6, PO meeting less than 50% estimated nutrition needs x 2 weeks and ~5% unintentional weight loss in less than 1 month Status Active Problem Recommendation Dietitian Recommendations/Changes Regular diet as tolerated with consistency/texture as per IMPREGNATION OPERATOR. Enteral nutrition support if PO contraindicated in next 24- 48 hours. Ensure plus HP as able to take PO nutrition. Follow-up with labs and possible TF support in 24 hours. Lab / Micro Data 10/20/23 03:55 10/20/23 03:55 Labs: Laboratory Results - last 24 hr 10/19/23 15:15: Sodium 138, Potassium 4.1, Chloride 99, Carbon Dioxide 33.0 H, Anion Gap 6, BUN 16, Creatinine 0.58 L, Estim Creat Clear Calc 78.13, Est GFR (MDRD) Af Amer 180, Est GFR (MDRD) Non-Af 149, BUN/Creatinine Ratio 27.7 H, Glucose 120 H, Calcium 8.6, Total Bilirubin 0.40, AST 57 H, ALT 121 H, Alkaline Phosphatase 62, Total Creatine Kinase 78, Total Protein 6.4, Albumin 2.9 L, Globulin 3.5, Albumin/Globulin Ratio 0.8 L, Triglycerides 147 10/19/23 17:50: WBC 12.1 H, RBC 4.12 L, Hgb 12.8 L, Hct 39.0 L, MCV 94.7 H, MCH 31.1, MCHC 32.8, RDW Std Deviation 50.7 H, RDW Coeff of Elidia 14.6, Plt Count 278, MPV 11.0, Immature Gran % (Auto) 0.400, Neut % (Auto) 87.3 H, Lymph % (Auto) 7.2 L, [place] % (Auto) 4.9, Eos % (Auto) 0.0, Baso % (Auto) 0.2, Absolute Neuts (auto) 10.6 H, Absolute Lymphs (auto) 0.87, Nucleated RBC % 0 10/20/23 03:55: WBC 10.8, RBC 4.10 L, Hgb 12.8 L, Hct 38.4 L, MCV 93.7, MCH 31.2, MCHC 33.3, RDW Std Deviation 50.7 H, RDW Coeff of Elidia 14.6, Plt Count 269, MPV 10.0, Immature Gran % (Auto) 0.500, Neut % (Auto) 68.6, Lymph % (Auto) 19.2, [place] % (Auto) 11.0 H, Eos % (Auto) 0.4, Baso % (Auto) 0.3, Absolute Neuts (auto) 7.4, Absolute Lymphs (auto) 2.07, Nucleated RBC % 0, Sodium 137, Potassium 3.9, Chloride 100, Carbon Dioxide 30.0, Anion Gap 7, BUN 19 H, Creatinine 0.51 L, Estim Creat Clear Calc 78.13, Est GFR (MDRD) Af Amer 207, Est GFR (MDRD) Non-Af 171, BUN/Creatinine Ratio 37.1 H, Glucose 92, Calcium 8.5 ABG Data ABG results: ABG 10/19/23 15:52 Specimen Type ART Sample Site R Radial pH 7.44 Bicarbonate Actual 33.9 H Total CO2 35 Base Excess 10 H O2 Saturation 96 O2 % 40.0 ABG pCO2 50.1 H ABG pO2 79 Forrest Test Positive Respiration Rate 14 O2 Delivery Device Adult Vent Vent Mode AC Tidal Volume 450.0 POC PEEP 5 Radiography Diagnostic Testing: Radiology Impression Chest X-Ray 10/19/23 16:45 IMPRESSION: Interval placement of a tracheostomy tube. Electronically Signed: Owen Colorado DO at 17:26 EDT Reading Location ID and State: [facility] / [place] Tel [phone], Service support , Physical Exam Narrative GENERAL: Cooperative HEENT: Trach collar in place EYES; Anicteric, Normal Conjunctiva NECK; supple, normal thyroid, RESPIRATORY: Diminished to auscultation CARDIOVASCULAR: Regular S1 S2, GI: soft, normoactive bowel sounds, : No Renal angle tenderness; EXTREMITIES: No edema, no clubbing, MUSCULOSKELETAL: no muscle wasting NEURO: No lateralizing signs SKIN: No Rash Assessment & Plan Assessment/Plan (1) Hypoxia: (2) Laryngeal mass: (3) Acute hypoxic respiratory failure: PLAN: Plan Patient is a 68-year-old gentleman with history of laryngeal mass who underwent biopsy on 10/19/[address] Syd Escobedo, patient postoperative period complicated by worsening stridor resulting in patient being taken back to the OR where tracheostomy was performed. Subsequently admitted to the intensive care unit for further management 1. Acute hypoxic respiratory failure secondary to stridor following laryngeal mass biopsy ? Patient had emergent trach performed please on the vent and subsequently admitted to the intensive care unit 2. 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 Chronic congestive heart failure with reduced ejection fraction ? Patient has EF of 40% patient is on furosemide as well as ANA inhibitors 4. Severe protein calorie malnutrition ? Evidenced by some optimal energy level severe weight loss. Consult placed to dietitian 5. Essential benign hypertension ? Patient is on lisinopril 6. Dyslipidemia ? Patient is on statin therapy 7. DVT prophylaxis ? Enoxaparin Time spent in the patient's overall evaluation,decision-making process, review of diagnostic data, adjustment of management, discussion with other providers, nursing nursing and ancillary staff involved in patient's care documentation, 52 Minutes Charges/Coding Visit Charges Inpatient E&M: 68325 [facility] Hosp L3
--- NOTE | 2023-10-20 09:28 | CASEMGMT ---
LIAM checked with Kaila to see if patient can return with a trach. Kaila said she would re-review patient. However, if patient declines or becomes more Hospice appropriate she would not be able to accept. Mary Anne SCHILLING
[2023-10-20] MEDS: Enoxaparin 40 MG/0.4 ML Syringe SC (10:15)
[2023-10-20] MEDS: Cefepime HCl 2 GM in 0.9% Normal Saline (100mL MB+) 100 ML IV ×2 (13:39→20:33)
--- NOTE | 2023-10-20 17:54 | PN_ITS ---
Progress Note The patient is off of the vent. He states he is breathing well. avss Trach in place. No bleeding. Sutures in place. Cuff is appropriate. He can ph evangelina somewhat with finger occlusion A: Laryngeal mass s/p tracheotomy and biopsy P: I would leave the passey lexy off and only finger occlude until a smaller uncuffed tube is placed next week. The daughter is interested in receiving the biopsy results all together. They can come to my office for the trach change and the biopsy discussion. Please send a #6 uncuffed Shiley trach tube with the patient to his next destination (?TCU?) so that this can be placed next week.
[2023-10-20] MEDS: 0.9% Saline Lock 10 ML Syringe IV (20:35)
[2023-10-21] VITALS (12 sets, daily range): BP systolic 120–132; BP diastolic 72–84; PULSE 89–109; RESP 16–24; TEMP 36.4–36.8; O2SAT 94–99; BMI 21.6
[2023-10-21 03:33] LABS: Absolute Lymphocyte Count 1.19 X10^3/uL (0.83-4.51); Absolute Neutrophil Count 7.9 X10^3/uL (2.0-7.7); Basophil# 0.04 X10^3/uL; Basophil% 0.4 % (0-1); Eosinophil# 0.08 X10^3/uL; Eosinophils% 0.8 % (0-5); Hematocrit 36.9 % (40-54); Hemoglobin 12.3 g/dL (13.0-16.5); Lymphocyte # 1.19 X10^3/ul (0.83-4.51); Lymphocyte % 11.7 % (19-41); Mean Corp Hgb Conc 33.3 g/dL (32-36); Mean Corpuscular Hgb 30.8 pg (27.0-32.0); Mean Corpuscular Volume 92.3 fL (80-94); Mean Platelet Vol. 10.9 fl (6.2-12.0); Monocyte# 0.98 X10^3/uL; Monocyte% 9.6 % (0-10); NRBC Flagged by Analyzer 0 % (0-5); Neutrophil # 7.85 X10^3/uL (2.7-7.7); Platelet Count 306 K/mm3 (150-450); RBC Distribution Width CV 14.6 % (11.6-14.6); RBC Distribution Width SD 49.1 fl (35.1-43.9); White Blood Count 10.2 K/mm3 (4.4-11.0)
[2023-10-21 04:34] LABS: Anion Gap 7 (5-15); BUN 11 mg/dL (7-18); BUN/Creat Ratio 29.1 RATIO (10-20); Calcium,Total 8.5 mg/dL (8.5-10.1); Chloride 102 mmol/L (98-107); Creatinine, Serum 0.38 mg/dL (0.70-1.30); EST Glomerular Filtration Rate 242 mL/min (>60); Est Glom Filt Rate - Afr Amer 293 mL/min (>60); Estimated Creatinine Clearance 78.25 ml/min; Glucose 92 mg/dL (74-106); Magnesium 1.8 mg/dL (1.6-2.6); Phosphorus 2.7 mg/dL (2.5-4.9); Potassium 3.4 mmol/L (3.5-5.1); Sodium Level 137 mmol/L (136-145)
[2023-10-21] MEDS: Cefepime HCl 2 GM in 0.9% Normal Saline (100mL MB+) 100 ML IV ×3 (05:02→20:15)
--- NOTE | 2023-10-21 07:07 | PCM.PN.HOSP ---
Reason for Visit Reason for Visit: Diagnoses Other diseases of larynx (10/19/23) Acute respiratory failure with hypoxia (10/19/23) Hypoxemia (10/19/23) Subjective Subjective Patient remains in ICU. Scheduled to undergo cookie swallow eval this a.m. Objective Data Objective Data Vital Signs: Vital Signs Temp Pulse Resp BP Pulse Ox O2 Del Method O2 Flow Rate 97.7 F L 89 18 125/76 H 99 Trach Collar 8 10/21/23 03:00 10/21/23 03:00 10/21/23 03:00 10/21/23 03:00 10/21/23 04:15 10/21/23 04:15 10/20/23 13:50 FiO2 28 10/21/23 04:15 Oxygen Flow Rate (L/min) 8 Oxygen Delivery Method Trach Collar Weight: 62.6 kg Body Mass Index (BMI) 21.6 Intake & Output: Intake and Output for Last 24 Hours 10/19/23 10/20/23 10/21/23 23:59 23:59 23:59 Intake Total 558.64 / 568.64 482.50 / 482.50 100 / 100 Output Total 1100 / 1100 350 / 350 Balance 558.64 / 568.64 -617.50 / -617.50 -250 / -250 Medical Nutrition Assessment Dietitian: Malnutrition Criteria Met Start: 10/19/23 17:00 Freq: Status: Active Protocol: Document 10/20/23 12:31 RMA (Rec: 10/20/23 12:31 RMA [id number]) Nutrition Malnutrition Evidence of Malnutrition Exists Yes Malnutrition (severe): Acute Illness/Injury Evidenced By Suboptimal Energy Intake ( Severe),Weight Loss (Severe) Intake Problem Inadequate Oral Intake Etiology related to swallowing difficulty Signs/Symptoms as evidenced by NPO and PO meeting less than 50% estimated nutrition needs x 2 weeks Status Active Problem Clinical Problem Acute Disease or Injury Related Malnutrition Etiology Severe protein-calorie malnutrition in the context of acute illness related to inadequate oral/energy intake and swallowing difficulty Signs/Symptoms as evidenced by BMI 21.6, PO meeting less than 50% estimated nutrition needs x 2 weeks and ~5% unintentional weight loss in less than 1 month and currently NPO Status Active Problem Recommendation Dietitian Recommendations/Changes As deemed safe for PO, recommend liberalized Regular Diet as tolerated with consistency/texture as per LABORER DAIRY FARM . Recommend enteral nutrition support if PO contraindicated in next 24-48 hours. Will add ONS including Ensure plus HP as diet advanced and able to take PO nutrition. Lab / Micro Data 10/21/23 03:05 10/21/23 04:10 Labs: Laboratory Results - last 24 hr 10/21/23 03:05: WBC 10.2, RBC 4.00 L, Hgb 12.3 L, Hct 36.9 L, MCV 92.3, MCH 30.8, MCHC 33.3, RDW Std Deviation 49.1 H, RDW Coeff of Elidia 14.6, Plt Count 306, MPV 10.9, Immature Gran % (Auto) 0.500, Neut % (Auto) 77.0 H, Lymph % (Auto) 11.7 L, [place] % (Auto) 9.6, Eos % (Auto) 0.8, Baso % (Auto) 0.4, Absolute Neuts (auto) 7.9 H, Absolute Lymphs (auto) 1.19, Nucleated RBC % 0, Sodium Cancelled, Potassium Cancelled, Chloride Cancelled, Carbon Dioxide Cancelled, Anion Gap Cancelled, BUN Cancelled, Creatinine Cancelled, Estim Creat Clear Calc Cancelled, Est GFR (MDRD) Af Amer Cancelled, Est GFR (MDRD) Non-Af Cancelled, BUN/Creatinine Ratio Cancelled, Glucose Cancelled, Calcium Cancelled, Phosphorus Cancelled, Magnesium Cancelled 10/21/23 04:10: Sodium 137, Potassium 3.4 L, Chloride 102, Carbon Dioxide 28.0, Anion Gap 7, BUN 11, Creatinine 0.38 L, Estim Creat Clear Calc 78.25, Est GFR (MDRD) Af Amer 293, Est GFR (MDRD) Non-Af 242, BUN/Creatinine Ratio 29.1 H, Glucose 92, Calcium 8.5, Phosphorus 2.7, Magnesium 1.8 Micro: Microbiology 10/19/23 14:30 Sputum, Induced/Lukens Gram Stain - Final 10/19/23 14:30 Sputum, Induced/Lukens Respiratory Culture - Preliminary GNR lactose television presenter Gram negative aleisha Physical Exam Narrative GENERAL: Cooperative HEENT: Trach collar in place EYES; Anicteric, Normal Conjunctiva NECK; supple, normal thyroid, RESPIRATORY: Diminished to auscultation CARDIOVASCULAR: Regular S1 S2, GI: soft, normoactive bowel sounds, : No Renal angle tenderness; EXTREMITIES: No edema, no clubbing, MUSCULOSKELETAL: no muscle wasting NEURO: No lateralizing signs SKIN: No Rash Assessment & Plan Assessment/Plan (1) Hypoxia: (2) Laryngeal mass: (3) Acute hypoxic respiratory failure: PLAN: Plan Patient is a 68-year-old gentleman with history of laryngeal mass who underwent biopsy on 10/19/[address] Syd Escobedo, patient postoperative period complicated by worsening stridor resulting in patient being taken back to the OR where tracheostomy was performed. Subsequently admitted to the intensive care unit for further management 1. Acute hypoxic respiratory failure secondary to stridor following laryngeal mass biopsy ? Patient had emergent trach performed please on the vent and subsequently admitted to the intensive care unit ? 10/21/2023;Patient remains in ICU. Scheduled to undergo cookie swallow eval this a.m. 2. 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 Chronic congestive heart failure with reduced ejection fraction ? Patient has EF of 40% patient is on furosemide as well as ANA inhibitors 4. Severe protein calorie malnutrition ? Evidenced by some optimal energy level severe weight loss. Consult placed to dietitian 5. Essential benign hypertension ? Patient is on lisinopril 6. Dyslipidemia ? Patient is on statin therapy 7. DVT prophylaxis ? Enoxaparin Time spent in the patient's overall evaluation,decision-making process, review of diagnostic data, adjustment of management, discussion with other providers, nursing nursing and ancillary staff involved in patient's care documentation, 50 Minutes Charges/Coding Visit Charges Inpatient E&M: 19953 Subs Hosp L3
[2023-10-21] MEDS: Ipratropium/Albuterol Sulfate 3 ML AMPUL.NEB INHALATION ×4 (07:31→19:19)
--- NOTE | 2023-10-21 08:33 | PCM.PN.INT ---
Assessment & Plan Assessment/Plan (1) Acute hypoxic respiratory failure: (2) Laryngeal mass: PLAN: Plan RECOMMENDATIONS: 1. Continue humidified trach collar supplemental O2. 2. Dietary advancement per speech therapy. 3. Continue bronchodilators. 4. Continue appropriate DVT prophylaxis. 5. Mobilize patient as tolerated. 6. Tracheostomy downsizing and follow-up per ENT. 7. Antimicrobials to complete 7 days of therapy. 8. The patient is medically stable for return to TCU. Will sign off. Please call with any questions. IMPRESSIONS: 1. Acute hypoxemic respiratory failure Most likely secondary to airway obstruction following biopsy, necessitating tracheotomy. The patient is doing remarkably well from a respiratory perspective. Plan to continue humidified trach collar supplemental O2 as needed. He will be continued on scheduled bronchodilators, given his tobacco abuse history. Further dietary advancement will be considered, pending speech therapy recommendations. 2. Laryngeal mass status postbiopsy/history of heart failure with reduced ejection fraction/hyperlipidemia/tobacco and alcohol dependency Complicates care, management, recovery and prognosis. Continue supportive measures as noted above. This note was generated with [employer] dictation software. It may contain incorrect words, spelling, and punctuation that were not noted in checking the note before signing. Subjective Subjective The patient was seen and examined at the bedside this morning. Events from the last 24 hours have been reviewed. The patient is currently afebrile, hemodynamically stable and maintaining appropriate oxygen saturations on humidified trach collar with an FiO2 of 28%. No overnight events were noted by the nursing staff. Objective Data Objective Data The patient's most recent lab work, culture data and imaging studies have all been personally reviewed. Sputum culture dated October 18 was positive for E. coli and Klebsiella. Vital Signs: Vital Signs Temp Pulse Resp BP Pulse Ox O2 Del Method O2 Flow Rate 97.7 F L 89 18 125/76 H 99 Trach Collar 8 10/21/23 03:00 10/21/23 03:00 10/21/23 03:00 10/21/23 03:00 10/21/23 04:15 10/21/23 04:15 10/20/23 13:50 FiO2 28 10/21/23 04:15 Oxygen Flow Rate (L/min) 8 Oxygen Delivery Method Trach Collar Weight: 138 lb 0.15 oz Body Mass Index (BMI) 21.6 Intake & Output: Intake and Output for Last 24 Hours 10/19/23 10/20/23 10/21/23 23:59 23:59 23:59 Intake Total 558.64 / 568.64 482.50 / 482.50 100 / 100 Output Total 1100 / 1100 350 / 350 Balance 558.64 / 568.64 -617.50 / -617.50 -250 / -250 Medical Nutrition Assessment Dietitian: Malnutrition Criteria Met Start: 10/19/23 17:00 Freq: Status: Active Protocol: Document 10/20/23 12:31 RMA (Rec: 10/20/23 12:31 RMA [id number]) Nutrition Malnutrition Evidence of Malnutrition Exists Yes Malnutrition (severe): Acute Illness/Injury Evidenced By Suboptimal Energy Intake ( Severe),Weight Loss (Severe) Intake Problem Inadequate Oral Intake Etiology related to swallowing difficulty Signs/Symptoms as evidenced by NPO and PO meeting less than 50% estimated nutrition needs x 2 weeks Status Active Problem Clinical Problem Acute Disease or Injury Related Malnutrition Etiology Severe protein-calorie malnutrition in the context of acute illness related to inadequate oral/energy intake and swallowing difficulty Signs/Symptoms as evidenced by BMI 21.6, PO meeting less than 50% estimated nutrition needs x 2 weeks and ~5% unintentional weight loss in less than 1 month and currently NPO Status Active Problem Recommendation Dietitian Recommendations/Changes As deemed safe for PO, recommend liberalized Regular Diet as tolerated with consistency/texture as per BUFFET SERVER . Recommend enteral nutrition support if PO contraindicated in next 24-48 hours. Will add ONS including Ensure plus HP as diet advanced and able to take PO nutrition. Lab / Micro Data Attestation: I reviewed the patient's lab results. 10/21/23 03:05 10/21/23 04:10 Labs: Laboratory Results - last 24 hr 10/21/23 03:05: WBC 10.2, RBC 4.00 L, Hgb 12.3 L, Hct 36.9 L, MCV 92.3, MCH 30.8, MCHC 33.3, RDW Std Deviation 49.1 H, RDW Coeff of Elidia 14.6, Plt Count 306, MPV 10.9, Immature Gran % (Auto) 0.500, Neut % (Auto) 77.0 H, Lymph % (Auto) 11.7 L, [place] % (Auto) 9.6, Eos % (Auto) 0.8, Baso % (Auto) 0.4, Absolute Neuts (auto) 7.9 H, Absolute Lymphs (auto) 1.19, Nucleated RBC % 0, Sodium Cancelled, Potassium Cancelled, Chloride Cancelled, Carbon Dioxide Cancelled, Anion Gap Cancelled, BUN Cancelled, Creatinine Cancelled, Estim Creat Clear Calc Cancelled, Est GFR (MDRD) Af Amer Cancelled, Est GFR (MDRD) Non-Af Cancelled, BUN/Creatinine Ratio Cancelled, Glucose Cancelled, Calcium Cancelled, Phosphorus Cancelled, Magnesium Cancelled 10/21/23 04:10: Sodium 137, Potassium 3.4 L, Chloride 102, Carbon Dioxide 28.0, Anion Gap 7, BUN 11, Creatinine 0.38 L, Estim Creat Clear Calc 78.25, Est GFR (MDRD) Af Amer 293, Est GFR (MDRD) Non-Af 242, BUN/Creatinine Ratio 29.1 H, Glucose 92, Calcium 8.5, Phosphorus 2.7, Magnesium 1.8 Micro: Microbiology 10/19/23 14:30 Sputum, Induced/Lukens Gram Stain - Final 10/19/23 14:30 Sputum, Induced/Lukens Respiratory Culture - Preliminary Escherichia coli Klebsiella oxytoca Physical Exam Const alert and no apparent distress General Appearance: cooperative HEENT normocephalic and head/scalp atraumatic HEENT Narrative: Stable appearing tracheostomy site. Eyes PERRL, EOMs intact bilaterally and conjunctivae normal Neck supple General: trachea midline Chest inspection of chest normal Resp normal respiratory effort Auscultation: diminished lung sounds; Negative for rales, rhonchi or wheezes Cardio regular rate and regular rhythm GI normal to inspection, nondistended, normoactive bowel sounds Extremity no clubbing, cyanosis or edema Skin no rashes or lesions noted Neuro CN's II-XII intact bilaterally, moves all extremities and no focal motor deficits Psych cooperative Charges/Coding Visit Charges Inpatient E&M: 96144 Subs Hosp L2
--- NOTE | 2023-10-21 08:50 | ST.MBS ---
Modified Barium Swallow Patient Information Study Date: 10/21/23 Study Time: 10:15 Direct Billable Minutes: 122 Total Minutes procedure & reportin Diagnosis: Laryngea mass J38.7, COPD J44.9 Referring Physician: Jasper Montelongo Reason for Referral: Objectively assess swallow function, assess risk for aspiration, and determine recommendations for least restrictive diet textures and compensatory strategies to improve safety of swallow. Medical History: PMH: Esophageal mass, Wears dentures, Wears glasses, Cardiology follow-up encounter, Difficulty swallowing, Smoker, High cholesterol, Alcohol use, COPD, History of CHF. The patient was recently hospitalized from 10/08/23-10/15/23 with recurrent stridor and dysphagia. During stay, ST completed a FEES, which revealed an excrescence on the R vocal fold and recommended Easy to Chew textures / Thin liquids with ENT referral. ENT, Dr. Coleman, planned for direct laryngoscopy with biopsy secondary to the laryngeal mass. Ultimately, the patient was taken to the OR on the afternoon of 10/19/23 for his biopsy. Following this, the patient was taken to the PACU, where he apparently experienced worsening stridor and decompensated from a respiratory perspective. The patient was taken back to the OR by Dr. Escobedo of ENT, where a tracheotomy was performed. A #8 cuffed Shiley tracheostomy tube was placed and he was transferred to ICU for subsequent management. ST was consulted to evaluate the patient's swallow prior to diet advancement. BSE 10/20/23 recommended NPO with sips/chips permitted after oral care, medications crushed in applesauce with plans for MBSS 10/21/23 to consider the patient for diet advancement. Of note, he was seen this morning for trials of PMSV with HEBREW TEACHER. He was able to tolerate PMSV for 2-5min; however, he declined PMSV trials with oral intake. PMSV will not be used for today's MBSS. Current Diet Ordered: NPO w/ sips & chips Dentition: Edentulous, Upper Dentures (not present for the study) and Lower Dentures (not present for the study) Mental Status: WNL Respiratory Status: Oxygenating on Room Air (trach) Penetration-Aspiration Scale Penetration-Aspiration Scale: OBJECTIVE ASSESSMENT OF SWALLOW FUNCTION (QUANTITATIVE ? PER TRIAL): PENETRATION / ASPIRATION SCALE (GARCIA): 1 = does not enter airway 2 = enters airway/above vocal folds/ejected 3 = enters airway/above vocal folds/not ejected 4 = enters airway/contacts vocal folds/ejected 5 = enters airway/contacts vocal folds/not ejected 6 = enters airway/below vocal folds/ejected 7 = enters airway/below vocal folds/not ejected despite effort 8 = enters airway/below vocal folds/no effort VIDEOFLOROSCOPIC SCALE SCORE (GARCIA): Grade I = aspiration of material that has penetrated into the laryngeal vestibule, intact cough reflex Grade II = aspiration < 10 % of the bolus, intact cough reflex Grade III = aspiration of < 10 % of the bolus, reduced cough reflex or aspiration of > 10 % of the bolus, intact cough reflex Grade IV = aspiration of > 10 % of the bolus, reduced cough reflex Penetration-Aspiration Scale Score Thin Liquid via teaspoon: Result: 8= enters airway/below vocal folds/no effort Thin Liquid via teaspoon Effortful swallow: Result: 8= enters airway/below vocal folds/no effort Thin Liquid via small single sip: cup Effortful swallow: Result: 2= enter airway/above vocal folds/ejected (trace) Comment: post prandial aspiration of residues of previous trial [place] Thick Liquid via small single sip: cup: Result: 2= enter airway/above vocal folds/ejected Pudding via teaspoon: Result: 1= does not enter airway Comment: Esophageal screen - Complete clearance. 06/04 Cookie: Result: 1= does not enter airway [place] Thick Liquid via single sip: straw: Result: 1= does not enter airway Thin Liquid via single sip: straw: Result: 2= enter airway/above vocal folds/ejected Thin Liquid via large single sip: cup: Result: 2= enter airway/above vocal folds/ejected Thin Liquid via large single sip: cup Effortful swallow: Result: 2= enter airway/above vocal folds/ejected Oral Phase Labial Seal: Escape progressing to mid-chin Tongue Control During Bolus Hold: Posterior escape of greater than half of bolus Bolus Preparation/Mastication: Slow prolonged chewing/mashing with complete recollection Bolus Transport/Lingual Motion: Delayed initiation of tongue motion Oral Residue: Residue collection on oral structures Pharyngeal Phase Initiation of Pharyngeal Swallow: Bolus head in pyriforms Soft Palate Elevation: No bolus between soft palate and pharyngeal wall Laryngeal Elevation: Partial superior movement thyroid cart/partial apprx aryt-epig petiole Anterior Hyoid Excursion: No anterior movement (no anterior movement on first trial, minimal to partial anterior movement on subsequent trials.) Epiglottic Movement: No inversion (No inversion on first trial, complete inversion on subsequent trials) Laryngeal Vestibule Closure at Height of Swallow: Incomplete; narrow column of air/contrast in laryngeal vestibule Pharyngeal Stripping Wave: Present - diminished Pharyngoesophageal Segment Opening: Minimal distension and minimal duration; marked obstruction of flow (minimal UES opening/duration on first trial, partial UES opening/duration on subsequent trials) Tongue Base Retraction: Narrow column of contrast between tongue base & post. pharyngeal wall Pharyngeal Residue: Collection of residue within or on pharyngeal structures Esophageal Phase Esophageal Clearance: Complete clearance Diagnosis/Impression Diagnosis: Mild-moderate oropharyngeal dysphagia R13.12 Impression: The patient demonstrated significantly worse swallow function consuming the first trial of thin liquids via tsp as compared to all other trials completed during the study. He demonstrated posterior loss of >1/2 the bolus to the pyriforms prior to swallow onset, minimal to no anterior hyoid excursion, no epiglottic inversion, decreased laryngeal elevation, and minimal UES opening/duration resulting in silent post prandial aspiration of pharyngeal residue after the first swallow and during the second swallow. Swallow function significantly improved as the study went on. The following statements are the impressions for the remaining sips and bites: The oral phase is primarily marked by... -Decreased bolus control of <1/2 of the bolus to the pyriforms prior to swallow onset. -Delayed tongue motion for A-P transport. -Slowed, but complete mastication of 1/4 cookie. He declined consuming 1/2 cookie bite. The pharyngeal phase is primarily marked by... -Decreased laryngeal elevation and minimal anterior hyoid excursion resulting in decreased airway closure. SILENT aspiration of thin liquids via tsp 3X (post prandial aspiration of thin liquids via tsp with effortful swallow seen during first cup sip of thin liquids). -Mild pharyngeal residue due to decreased tongue base retraction, pharyngeal stripping wave, and UES opening/duration. Recommendations Diet: Mechanical Soft Textures (Soft and Bite Size Textures - IDDSI Level 6) and Thin Liquids Comment: Oral care & 10 ice chips prior to meal Compensatory Strategies: Small Bites, Small Sips, Slow Rate, Sitting upright and Remain sitting upright for 30 minutes after PO intake Supervision: 1:1 Close Supervision (Staff supervision - Monitor SpO2 at meals) Recommend Repeat Modified Barium Swallow: Yes (1-2 weeks after implementation of oropharyngeal exercise program) Need for Skilled Speech Therapy Services: Yes Comment: -Train the patient in use of strategies to decrease risk for aspiration. -Ongoing assessment of diet tolerance of recommended textures. Consider diet downgrade to mildly thick liquids if worsening respiratory status. Trial solid textures with HEBREW TEACHER to consider diet advancement. -Trial PMSV with HEBREW TEACHER in junction with oral intake trials. -Train the patient in oropharyngeal exercise program to improve pharyngeal motility and airway closure (Fartun, effortful, Yesenia, CTAR). Education Completed: 1. Described result of evaluation., 2. Pt understands evaluation & agrees with goals and treatment plan., 4. Family/caregivers understand evaluation & agree w/ goals & tx plan. and 7. Pt requires further education on strategies & risks. Status Active ST Patient: Active Contact Information [facility] Speech Therapy:: Morelia Freire M.A. [facility]? Speech-Language Pathologist?? [place] [id number] [address]?? [place] [address]?? [email or web address]?? [phone]
--- NOTE | 2023-10-21 09:19 | CASEMGMT ---
Addendum entered by Marycarmen Hayward 10/21/23 10:48: Social Work TCU can take pt back once his nutrition is addressed, having a barium swallow today. LIZZY Moore Original Note: Social Work SW spoke w/Katt in TCU admissions today, and gave updates on O2 requirements. She will let SW know if they can take pt back today. LIZZY Moore
[2023-10-21] MEDS: Enoxaparin 40 MG/0.4 ML Syringe SC (09:41)
[2023-10-22] VITALS (28 sets, daily range): BP systolic 93–170; BP diastolic 53–99; PULSE 82–136; RESP 18–31; TEMP 36.3–37.1; O2SAT 90–100; BMI 21.1
[2023-10-22] MEDS: Cefepime HCl 2 GM in 0.9% Normal Saline (100mL MB+) 100 ML IV ×3 (05:41→22:25)
[2023-10-22] MEDS: Ipratropium/Albuterol Sulfate 3 ML AMPUL.NEB INHALATION ×3 (06:22→18:55)
--- NOTE | 2023-10-22 07:08 | PCM.PN.HOSP ---
Reason for Visit Reason for Visit: Diagnoses Other diseases of larynx (10/19/23) Acute respiratory failure with hypoxia (10/19/23) Hypoxemia (10/19/23) Subjective Subjective Patient seen currently being suctioned. Per nursing staff patient has had copious secretions from the trach. Blood pressure also remains uncontrolled added, added hydralazine as needed Objective Data Objective Data Vital Signs: Vital Signs Temp Pulse Resp BP Pulse Ox O2 Del Method O2 Flow Rate 97.8 F 82 18 133/77 H 94 Trach Collar 6 10/22/23 02:00 10/22/23 06:23 10/22/23 06:23 10/22/23 02:00 10/22/23 06:23 10/22/23 06:23 10/22/23 06:23 FiO2 28 10/22/23 06:23 Oxygen Flow Rate (L/min) 6 Oxygen Delivery Method Trach Collar Weight: 61.144 kg Body Mass Index (BMI) 21.1 Intake & Output: Intake and Output for Last 24 Hours 10/20/23 10/21/23 10/22/23 23:59 23:59 23:59 Intake Total 482.50 / 482.50 300 / 300 100 / 100 Output Total 1100 / 1100 800 / 800 Balance -617.50 / -617.50 -500 / -500 100 / 100 Medical Nutrition Assessment Dietitian: Malnutrition Criteria Met Start: 10/19/23 17:00 Freq: Status: Active Protocol: Document 10/20/23 12:31 RMA (Rec: 10/20/23 12:31 RMA [id number]) Nutrition Malnutrition Evidence of Malnutrition Exists Yes Malnutrition (severe): Acute Illness/Injury Evidenced By Suboptimal Energy Intake ( Severe),Weight Loss (Severe) Intake Problem Inadequate Oral Intake Etiology related to swallowing difficulty Signs/Symptoms as evidenced by NPO and PO meeting less than 50% estimated nutrition needs x 2 weeks Status Active Problem Clinical Problem Acute Disease or Injury Related Malnutrition Etiology Severe protein-calorie malnutrition in the context of acute illness related to inadequate oral/energy intake and swallowing difficulty Signs/Symptoms as evidenced by BMI 21.6, PO meeting less than 50% estimated nutrition needs x 2 weeks and ~5% unintentional weight loss in less than 1 month and currently NPO Status Active Problem Recommendation Dietitian Recommendations/Changes As deemed safe for PO, recommend liberalized Regular Diet as tolerated with consistency/texture as per ARTIST'S MODEL . Recommend enteral nutrition support if PO contraindicated in next 24-48 hours. Will add ONS including Ensure plus HP as diet advanced and able to take PO nutrition. Lab / Micro Data 10/22/23 07:16 10/22/23 07:16 Micro: Microbiology 10/19/23 14:30 Sputum, Induced/Lukens Gram Stain - Final 10/19/23 14:30 Sputum, Induced/Lukens Respiratory Culture - Final Escherichia coli Klebsiella oxytoca Haemophilus influenzae Physical Exam Narrative GENERAL: Cooperative HEENT: Trach collar in place EYES; Anicteric, Normal Conjunctiva NECK; supple, normal thyroid, RESPIRATORY: Diminished to auscultation CARDIOVASCULAR: Regular S1 S2, GI: soft, normoactive bowel sounds, : No Renal angle tenderness; EXTREMITIES: No edema, no clubbing, MUSCULOSKELETAL: no muscle wasting NEURO: No lateralizing signs SKIN: No Rash Assessment & Plan Assessment/Plan (1) Hypoxia: (2) Laryngeal mass: (3) Acute hypoxic respiratory failure: PLAN: Plan Patient is a 68-year-old gentleman with history of laryngeal mass who underwent biopsy on 10/19/[address] Syd Escobedo, patient postoperative period complicated by worsening stridor resulting in patient being taken back to the OR where tracheostomy was performed. Subsequently admitted to the intensive care unit for further management 1. Acute hypoxic respiratory failure secondary to stridor following laryngeal mass biopsy ? Patient had emergent trach performed please on the vent and subsequently admitted to the intensive care unit ? 10/21/2023;Patient remains in ICU. Scheduled to undergo cookie swallow eval this a.m. ? 10/22/2023; speech therapy recommended Small Bites, Small Sips, Slow Rate, Sitting upright and Remain sitting upright for 30 minutes after PO intake. Patient has copious secretions from his trach 2. 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 Chronic congestive heart failure with reduced ejection fraction ? Patient has EF of 40% patient is on furosemide as well as ANA inhibitors 4. Severe protein calorie malnutrition ? Evidenced by some optimal energy level severe weight loss. Consult placed to dietitian 5. Essential benign hypertension ? Patient is on lisinopril ? 10/22/2023; blood pressure remains uncontrolled added hydralazine as needed systolic blood pressure greater than 160 6. Dyslipidemia ? Patient is on statin therapy 7. DVT prophylaxis ? Enoxaparin Time spent in the patient's overall evaluation,decision-making process, review of diagnostic data, adjustment of management, discussion with other providers, nursing nursing and ancillary staff involved in patient's care documentation, 35 Minutes Charges/Coding Visit Charges Inpatient E&M: 60156 Subs Hosp L2
[2023-10-22 07:46] LABS: Absolute Lymphocyte Count 1.09 X10^3/uL (0.83-4.51); Absolute Neutrophil Count 7.8 X10^3/uL (2.0-7.7); Basophil# 0.04 X10^3/uL; Basophil% 0.4 % (0-1); Eosinophil# 0.14 X10^3/uL; Eosinophils% 1.4 % (0-5); Hematocrit 38.6 % (40-54); Hemoglobin 12.7 g/dL (13.0-16.5); Lymphocyte # 1.09 X10^3/ul (0.83-4.51); Lymphocyte % 10.8 % (19-41); Mean Corp Hgb Conc 32.9 g/dL (32-36); Mean Corpuscular Hgb 30.5 pg (27.0-32.0); Mean Corpuscular Volume 92.6 fL (80-94); Mean Platelet Vol. 10.4 fl (6.2-12.0); Monocyte# 0.94 X10^3/uL; Monocyte% 9.4 % (0-10); NRBC Flagged by Analyzer 0 % (0-5); Neutrophil # 7.78 X10^3/uL (2.7-7.7); Neutrophil % 77.4 % (47-70); Platelet Count 282 K/mm3 (150-450); RBC Distribution Width CV 14.3 % (11.6-14.6); RBC Distribution Width SD 48.9 fl (35.1-43.9); Red Blood Count 4.17 M/mm3 (4.6-6.2); White Blood Count 10.1 K/mm3 (4.4-11.0)
[2023-10-22 08:15] LABS: Anion Gap 9 (5-15); BUN 10 mg/dL (7-18); BUN/Creat Ratio 30.1 RATIO (10-20); Calcium,Total 8.7 mg/dL (8.5-10.1); Chloride 102 mmol/L (98-107); Creatinine, Serum 0.33 mg/dL (0.70-1.30); EST Glomerular Filtration Rate 281 mL/min (>60); Est Glom Filt Rate - Afr Amer 340 mL/min (>60); Estimated Creatinine Clearance 76.43 ml/min; Glucose 95 mg/dL (74-106); Sodium Level 135 mmol/L (136-145)
[2023-10-22] MEDS: Enoxaparin 40 MG/0.4 ML Syringe SC (10:58)
--- NOTE | 2023-10-22 11:03 | CASEMGMT ---
O2 requirements for patient for TCU will need to be no more than 8L. Mary Anne Hernandez MEDICAL ASSISTING PROGRAM DIRECTORZak TATEW
--- NOTE | 2023-10-22 11:57 | EKG12_ITS ---
Test Reason : afib Blood Pressure : / mmHG Vent. Rate : 149 BPM Atrial Rate : 381 BPM P-R Int : 000 ms QRS Dur : 072 ms QT Int : 274 ms P-R-T Axes : 000 018 096 degrees QTc Int : 431 ms Critical Test Result: High HR Atrial fibrillation / Atrial flutter with variable A-V conduction Nonspecific ST and T wave abnormality Abnormal ECG Confirmed by Carlito Martell ([id number]), commercial production editor [place] ROSS ([id number]) on 10/23/2023 10:32:59 AM Referred By: Syd Coleman Confirmed By:Carlito Martell
[2023-10-22] MEDS: dilTIAZem 25 MG/5 ML Vial 20 MG IV BOLUS (12:46)
[2023-10-22] MEDS: Diltiazem 125 MG in Dextrose 5%-Water (100mL Bag) 100 ML CONT INF (12:52)
--- NOTE | 2023-10-22 15:13 | CHAPLAIN ---
Type of Pastoral Visit ___ Initial Visit _x__ Follow-up Visit ___ On-call Visit ___ General Patient Visit ___ Spiritual Assessment ___ Family Conference ___ Bereavement ___ Rapid Response ___ Code Blue ___ Other (describe below) Pastoral Care Referral From ___ Patient _x__ Family ___ Nurse ___ Physician ___ Operations Officer ___ Lap Checker ___ Other (describe below) Sacrament/Intervention ___ Active listening ___ Anointing ___ Druze ___ Bereavement ___ Communion ___ Diana exploration ___ ___ Life review _x__ Prayer ___ Reconciliation ___ Sacrament of Sick _x__ Supportive presence ___ Wedding ___ Other (describe below) Pastoral Comments patient is sitting up in the chair and alone in the room; pt is awake but with trach he cannot talk, rather he has a white board on tray; pt is calm and is asked if he would like someone to sit with him and/or to say a prayer; pt agrees with prayer; pt mouths answer that being alone is fine; prayer given
[2023-10-23] VITALS (23 sets, daily range): BP systolic 96–130; BP diastolic 56–99; PULSE 70–104; RESP 16–36; TEMP 36.8–36.9; O2SAT 91–100; BMI 21.5
[2023-10-23] MEDS: Diltiazem 125 MG in Dextrose 5%-Water (100mL Bag) 100 ML 10 MG CONT INF (00:26)
[2023-10-23] MEDS: 0.9% Saline Lock 10 ML Syringe IV (05:57)
[2023-10-23] MEDS: Cefepime HCl 2 GM in 0.9% Normal Saline (100mL MB+) 100 ML IV ×2 (05:57→14:48)
[2023-10-23 06:07] LABS: Absolute Lymphocyte Count 1.28 X10^3/uL (0.83-4.51); Absolute Neutrophil Count 7.6 X10^3/uL (2.0-7.7); Basophil# 0.05 X10^3/uL; Basophil% 0.5 % (0-1); Hematocrit 37.8 % (40-54); Hemoglobin 12.8 g/dL (13.0-16.5); Lymphocyte # 1.28 X10^3/ul (0.83-4.51); Lymphocyte % 12.8 % (19-41); Mean Corp Hgb Conc 33.9 g/dL (32-36); Mean Corpuscular Hgb 30.8 pg (27.0-32.0); Mean Corpuscular Volume 91.1 fL (80-94); Mean Platelet Vol. 9.8 fl (6.2-12.0); Monocyte# 0.83 X10^3/uL; Monocyte% 8.3 % (0-10); NRBC Flagged by Analyzer 0 % (0-5); Neutrophil # 7.56 X10^3/uL (2.7-7.7); Neutrophil % 75.9 % (47-70); Platelet Count 284 K/mm3 (150-450); RBC Distribution Width CV 14.4 % (11.6-14.6); RBC Distribution Width SD 48.4 fl (35.1-43.9); Red Blood Count 4.15 M/mm3 (4.6-6.2)
[2023-10-23 06:38] LABS: Anion Gap 7 (5-15); BUN 10 mg/dL (7-18); BUN/Creat Ratio 28.7 RATIO (10-20); Calcium,Total 8.3 mg/dL (8.5-10.1); Chloride 103 mmol/L (98-107); Creatinine, Serum 0.35 mg/dL (0.70-1.30); EST Glomerular Filtration Rate 266 mL/min (>60); Est Glom Filt Rate - Afr Amer 321 mL/min (>60); Estimated Creatinine Clearance 77.96 ml/min; Glucose 104 mg/dL (74-106); Potassium 2.8 mmol/L (3.5-5.1); Sodium Level 137 mmol/L (136-145)
[2023-10-23] MEDS: Ipratropium/Albuterol Sulfate 3 ML AMPUL.NEB INHALATION ×3 (07:08→16:11)
--- NOTE | 2023-10-23 08:18 | PN.HOSP_ITS ---
Reason for Visit Reason for Visit: Diagnoses Other diseases of larynx (10/19/23) Acute respiratory failure with hypoxia (10/19/23) Hypoxemia (10/19/23) Objective Data Objective Data Vital Signs: Vital Signs Temp Pulse Resp BP Pulse Ox O2 Del Method O2 Flow Rate 98.5 F 80 22 H 114/56 L 97 Trach Collar 6 10/23/23 05:00 10/23/23 07:09 10/23/23 07:09 10/23/23 07:00 10/23/23 07:09 10/23/23 07:09 10/23/23 07:09 FiO2 28 10/23/23 07:09 Oxygen Flow Rate (L/min) 6 Oxygen Delivery Method Trach Collar Weight: 137 lb 8 oz Body Mass Index (BMI) 21.5 Intake & Output: Intake and Output for Last 24 Hours 10/21/23 10/22/23 10/23/23 23:59 23:59 23:59 Intake Total 300 / 300 393.17 / 403.17 175.00 / 175.00 Output Total 800 / 800 Balance -500 / -500 393.17 / 403.17 175.00 / 175.00 Medical Nutrition Assessment Dietitian: Malnutrition Criteria Met Start: 10/19/23 17:00 Freq: Status: Active Protocol: Document 10/20/23 12:31 RMA (Rec: 10/20/23 12:31 RMA [id number]) Nutrition Malnutrition Evidence of Malnutrition Exists Yes Malnutrition (severe): Acute Illness/Injury Evidenced By Suboptimal Energy Intake ( Severe),Weight Loss (Severe) Intake Problem Inadequate Oral Intake Etiology related to swallowing difficulty Signs/Symptoms as evidenced by NPO and PO meeting less than 50% estimated nutrition needs x 2 weeks Status Active Problem Clinical Problem Acute Disease or Injury Related Malnutrition Etiology Severe protein-calorie malnutrition in the context of acute illness related to inadequate oral/energy intake and swallowing difficulty Signs/Symptoms as evidenced by BMI 21.6, PO meeting less than 50% estimated nutrition needs x 2 weeks and ~5% unintentional weight loss in less than 1 month and currently NPO Status Active Problem Recommendation Dietitian Recommendations/Changes As deemed safe for PO, recommend liberalized Regular Diet as tolerated with consistency/texture as per CIVIL LITIGATION ATTORNEY . Recommend enteral nutrition support if PO contraindicated in next 24-48 hours. Will add ONS including Ensure plus HP as diet advanced and able to take PO nutrition. Lab / Micro Data 10/23/23 06:00 10/23/23 06:00 Labs: Laboratory Results - last 24 hr 10/23/23 06:00: WBC 10.0, RBC 4.15 L, Hgb 12.8 L, Hct 37.8 L, MCV 91.1, MCH 30.8, MCHC 33.9, RDW Std Deviation 48.4 H, RDW Coeff of Elidia 14.4, Plt Count 284, MPV 9.8, Immature Gran % (Auto) 0.500, Neut % (Auto) 75.9 H, Lymph % (Auto) 12.8 L, [place] % (Auto) 8.3, Eos % (Auto) 2.0, Baso % (Auto) 0.5, Absolute Neuts (auto) 7.6, Absolute Lymphs (auto) 1.28, Nucleated RBC % 0, Sodium 137, Potassium 2.8 L , Chloride 103, Carbon Dioxide 27.0, Anion Gap 7, BUN 10, Creatinine 0.35 L, Estim Creat Clear Calc 77.96, Est GFR (MDRD) Af Amer 321, Est GFR (MDRD) Non-Af 266, BUN/Creatinine Ratio 28.7 H, Glucose 104, Calcium 8.3 L Micro: Microbiology 10/19/23 14:30 Sputum, Induced/Lukens Gram Stain - Final 10/19/23 14:30 Sputum, Induced/Lukens Respiratory Culture - Final Escherichia coli Klebsiella oxytoca Haemophilus influenzae Physical Exam Narrative Seen and examined. No fever. Copious secretions. On modified diet on direct feeding supervision followed by speech therapist. Physical exam General: Alert, Oriented x3, Cooperative HEENT: Atraumatic, PERRLA, EOMI, Normocephalic Oral: Deep oropharynx history could not be examined. Neck: Tracheostomy, supple, No JVD, Negative Carotid Bruits Chest wall/Lungs: Air entry diminished in bilateral lung bases. No crepitation/rhonchi Cardiovascular: Regular rate, Regular Rhythm, Normal S1, Normal S2, No M/G/R Abdomen: Bowel Sounds Present, Soft, Non Tender, Non-Distended : No dysuria. No renal angle tenderness. No suprapubic tenderness. Extremities: No edema, Capillary Refill Less than 3 Seconds Skin: No rashes, No breakdown Musculoskeletal: No Tenderness to Palpation of Joints or Extremities Neurological: Cranial nerves II-XII grossly intact, DTR 2+/4. No acute focal neurological deficit. Psych/Mental Status: Flat affect. Assessment & Plan Assessment/Plan (1) Hypoxia: (2) Laryngeal mass: (3) Acute hypoxic respiratory failure: PLAN: Plan Patient is a 68-year-old gentleman with history of laryngeal mass who underwent biopsy on 10/19/[address] Syd Escobedo, patient postoperative period complicated by worsening stridor resulting in patient being taken back to the OR where tracheostomy was performed. Subsequently admitted to the intensive care unit for further management 1. Acute hypoxic respiratory failure secondary to stridor following laryngeal mass biopsy ? Patient had emergent trach performed please on the vent and subsequently admitted to the intensive care unit Patient remains in ICU. Underwent cookie swallow eval. Speech therapy recommended Small Bites, Small Sips, Slow Rate, Sitting upright and Remain sitting upright for 30 minutes after PO intake. Patient has copious secretions from his trach 10/22: Nursing care increased copious secretions. Sputum culture shows E. coli, Klebsiella oxytoca and haemophilus influenzae.. Empirically on IV cefepime. Chest x-ray does not show consolidation edema or effusion. No pneumothorax. 2. 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 Chronic congestive heart failure with reduced ejection fraction ? Patient has EF of 40% patient is on furosemide as well as ANA inhibitors 4. Severe protein calorie malnutrition ? Evidenced by some optimal energy level severe weight loss. Consult placed to dietitian 5. Essential benign hypertension ? Patient is on lisinopril ? 10/22/2023; blood pressure remains uncontrolled added hydralazine as needed systolic blood pressure greater than 160 6. Dyslipidemia ? Patient is on statin therapy 7. DVT prophylaxis ? Enoxaparin Time spent in the patient's overall evaluation,decision-making process, review of diagnostic data, adjustment of management, discussion with other providers, nursing nursing and ancillary staff involved in patient's care documentation, 40 Minutes Charges/Coding Visit Charges Inpatient E&M: 27687 [facility] Hosp L3
[2023-10-23] MEDS: Ensure Plus High Protein 120 ML LIQUID PO (09:52)
[2023-10-23] MEDS: Enoxaparin 40 MG/0.4 ML Syringe SC (09:52)
--- NOTE | 2023-10-23 13:49 | PCM.TXEXTCAR ---
Diet Diet Order/Speech Therapy: 10/22/23 09:44 Diet: Regular - General Food consistency:: Soft & Bite Sized Liquid Consistency:: Regular/Thin Is pt able to select menu?: No Diet Comments: Direct staff sup, oral care & 5-10 ice chips before meal Routine Orders/Code Status Suppository Type: Dulcolax 10mg Suppository Frequency: Daily PRN Problem/Diagnosis (1) Hypoxia: Status: Acute Code(s): R09.02 - Hypoxemia (2) Laryngeal mass: Status: Acute Code(s): J38.7 - Other diseases of larynx (3) Acute hypoxic respiratory failure: Status: Inactive Code(s): J96.01 - Acute respiratory failure with hypoxia Plan Patient is a 68-year-old gentleman with history of laryngeal mass who underwent biopsy on 10/19/[address] Syd Escobedo, patient postoperative period complicated by worsening stridor resulting in patient being taken back to the OR where tracheostomy was performed. Subsequently admitted to the intensive care unit for further management 1. Acute hypoxic respiratory failure secondary to stridor following laryngeal mass biopsy ? Patient had emergent trach performed please on the vent and subsequently admitted to the intensive care unit Patient remains in ICU. Underwent cookie swallow eval. Speech therapy recommended Small Bites, Small Sips, Slow Rate, Sitting upright and Remain sitting upright for 30 minutes after PO intake. Patient has copious secretions from his trach 10/22: Nursing care increased copious secretions. Sputum culture shows E. coli, Klebsiella oxytoca and haemophilus influenzae.. Empirically on IV cefepime. Chest x-ray does not show consolidation edema or effusion. No pneumothorax. 2. 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 Chronic congestive heart failure with reduced ejection fraction ? Patient has EF of 40% patient is on furosemide as well as ANA inhibitors 4. Severe protein calorie malnutrition ? Evidenced by some optimal energy level severe weight loss. Consult placed to dietitian 5. Essential benign hypertension ? Patient is on lisinopril ? 10/22/2023; blood pressure remains uncontrolled added hydralazine as needed systolic blood pressure greater than 160 6. Dyslipidemia ? Patient is on statin therapy 7. DVT prophylaxis ? Enoxaparin Time spent in the patient's overall evaluation,decision-making process, review of diagnostic data, adjustment of management, discussion with other providers, nursing nursing and ancillary staff involved in patient's care documentation, 40 Minutes Allergies/Procedures Done in Hospital Allergies No Known Allergies Allergy (Verified 10/19/23 11:06) Type of Care/Length of Stay Estimated LOS: Convalescent Care Less Than 30 days Type of Care Needed: Skilled Rehab Potential: Good Prognosis: Good Additional Orders/Day of Discharge Day of Discharge: 10/23/23 Dietary and Speech Recommendations Dietitian Recommendations/Changes: Rec continue Regular Diet as tolerated with consistency/texture as per STUDENT SUCCESS COACH d/t signs and symptoms of malnutrition. Add 4 oz ensure plus high protein 4x/day w/ medpass for increased nutrition if consumed. Follow Up Care Please Follow Up With: Syd Coleman MD Discharge Plan Admission Admit Date/Time: 10/19/23 15:35 Primary Reason for Your Visit: Laryngeal mass. Acute bronchitis Attending Provider: Kevin Carmona Primary Care Provider: Care Physician,No Primary Consulting Providers: Priscilla Chris; Syd Coleman; Mickey Palacios Instructions Additional Instructions / Restrictions: Hold carvedilol and diltiazem for heart less than 50 or systolic blood pressure less than 100 mmHg. Hold lisinopril if SBP less than 110 mmHg. Hold Lasix if SBP less than 120 with the Discharge Orders/Prescriptions Prescriptions: New acetaminophen 325 mg Tablet 650 mg PO Q4H PRN PRN (Reason: Pain Score 1-10) Qty: 0 0RF ipratropium-albuterol 0.5 mg-3 mg(2.5 mg base)/3 mL Solution For Nebulization 3 ml inhalation Q4H PRN (Reason: SOB) Qty: 0 0RF nicotine 21 mg/24 hr Patch 24 Hour 21 mg transdermal DAILY 28 Days Qty: 0 0RF diltiazem HCl [Cardizem LA] 240 mg tablet extended release 24 hr 240 mg PO DAILY Qty: 30 2RF Continued furosemide 40 mg Tablet 40 mg PO DAILY Qty: 30 2RF atorvastatin 40 mg Tablet 40 mg PO QHS Qty: 30 2RF thiamine HCl (vitamin B1) [Vitamin B-1] 100 mg Tablet 100 mg PO DAILYCM Qty: 30 2RF Changed carvedilol [Coreg] 3.125 mg tablet 6.25 mg PO BID 14 Days Qty: 28 0RF Rx Instructions: must administer with a meal/food Held lisinopril 5 mg Tablet 5 mg PO DAILY Qty: 30 2RF Hold Instructions: Hold for 5 days. Discontinued prednisone 20 mg Tablet 40 mg PO BREAKFAST Qty: 6 0RF Referrals / Follow Up: Care Physician,No Primary [Primary Care Provider] - Jasper Montelongo DO [Med Staff - Active Staff] - Within 1 Month (copd. On trach collar) Syd Coleman MD [Med Staff - Active Staff] - Within 2 Weeks Disposition Disposition (needs filled in before D/C Order can be placed): [facility]
--- NOTE | 2023-10-23 14:07 | PCM.DC.SUM ---
Providers Date of Admission: 10/19/23 Date of Discharge: 10/23/23 Primary Care Physician: Megan Primary Care Phys Consultations 10/19/23 15:35 Consult: Repossession Agent / Pulmonary Medicine Routine Consulting Provider: Intensivists/Pulmonary Med Reason for Consult: acute hypoxic respiratory failure, stridor EMERGENT Consult: No Notified: Yes Date Notified: 10/19/23 Time Notified: 15:38 Method of Notification: Text 10/19/23 19:27 Consult: ENT Routine Consulting Provider: Syd Coleman Reason for Consult: resp failure post laryngeal mass biopsy EMERGENT Consult: No Notified: Yes Date Notified: 10/19/23 Time Notified: 19:27 Method of Notification: Answering Service Comments:: already aware of patient Diagnosis Discharge Diagnosis (1) Hypoxia: Status: Acute Code(s): R09.02 - Hypoxemia (2) Laryngeal mass: Status: Acute Code(s): J38.7 - Other diseases of larynx (3) Acute hypoxic respiratory failure: Status: Inactive Code(s): J96.01 - Acute respiratory failure with hypoxia Plan Patient is a 68-year-old gentleman with history of laryngeal mass who underwent biopsy on 10/19/[address] Syd Escobedo, patient postoperative period complicated by worsening stridor resulting in patient being taken back to the OR where tracheostomy was performed. Subsequently admitted to the intensive care unit for further management 1. Acute hypoxic respiratory failure secondary to stridor following laryngeal mass biopsy ? Patient had emergent trach performed please on the vent and subsequently admitted to the intensive care unit Patient remains in ICU. Underwent cookie swallow eval. Speech therapy recommended Small Bites, Small Sips, Slow Rate, Sitting upright and Remain sitting upright for 30 minutes after PO intake. Patient has copious secretions from his trach 10/22: Confirmed with the nursing staff around afternoon patient did not have much tracheal secretions. TCU nursing staff can handle it. Discharged to TCU. Sputum culture shows E. coli, Klebsiella oxytoca and haemophilus influenzae.. Empirically on IV cefepime. Chest x-ray does not show consolidation edema or effusion. No pneumothorax. Patient has a bronchitis. Patient discharged on 5 more days of levofloxacin 500 mg once daily. 2. 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 Chronic congestive heart failure with reduced ejection fraction ? Patient has EF of 40% patient is on furosemide as well as ANA inhibitors Hold Lasix for 5 more days. Blood pressure normal. 4. Severe protein calorie malnutrition ? Evidenced by some optimal energy level severe weight loss. Consult placed to dietitian 5. Essential benign hypertension ? Patient is on lisinopril 6. Dyslipidemia ? Patient is on statin therapy 7. DVT prophylaxis ? Enoxaparin Discharge medication reconciliation done. Discharge follow-up instructions completed. Discharge process discussed with the patient and all questions were answered to patient's satisfaction. Follow with PCP in 1 to 2 weeks Total time spent, exact 35 minutes on discharge meds reconciliation, examination, coordination of care with nurses and ancillary staff, review of imaging and blood test and discussion with the patient on follow-up instructions. Medications at Discharge Home Medications atorvastatin 40 mg tablet 40 mg PO QHS Cholesterol #30 tabs 10/15/23 furosemide 40 mg tablet 40 mg PO DAILY Fluid retention #30 tabs 10/15/23 lisinopril 5 mg tablet 5 mg PO DAILY BP #30 tabs 10/15/23 thiamine HCl (vitamin B1) 100 mg tablet (Vitamin B-1) 100 mg PO DAILYCM Supplement #30 tabs 10/15/23 acetaminophen 325 mg tablet 650 mg (2 x 325 mg) PO Q4H PRN PRN Pain Score 1-10 #0 tabs 10/23/23 carvedilol 3.125 mg tablet (Coreg) 6.25 mg (2 x 3.125 mg) PO BID 14 days #28 tabs 10/23/23 diltiazem HCl 240 mg tablet,extended release 24 hr (Cardizem LA) 240 mg PO DAILY #30 tabs 10/23/23 ipratropium 0.5 mg-albuterol 3 mg (2.5 mg base)/3 mL nebulization soln 3 ml inhalation Q4H PRN SOB #0 mL 10/23/23 levofloxacin 500 mg tablet 500 mg PO DAILY 5 days #5 tabs 10/23/23 nicotine 21 mg/24 hr daily transdermal patch 21 mg transdermal DAILY 28 days #0 ea 10/23/23 Physical Exam Narrative Seen and examined. No fever. On modified diet on direct feeding supervision followed by speech therapist. Physical exam General: Alert, Oriented x3, Cooperative HEENT: Atraumatic, PERRLA, EOMI, Normocephalic Oral: Deep oropharynx history could not be examined. Neck: Tracheostomy, supple, No JVD, Negative Carotid Bruits Chest wall/Lungs: Air entry diminished in bilateral lung bases. No crepitation/rhonchi Cardiovascular: Regular rate, Regular Rhythm, Normal S1, Normal S2, No M/G/R Abdomen: Bowel Sounds Present, Soft, Non Tender, Non-Distended : No dysuria. No renal angle tenderness. No suprapubic tenderness. Extremities: No edema, Capillary Refill Less than 3 Seconds Skin: No rashes, No breakdown Musculoskeletal: No Tenderness to Palpation of Joints or Extremities Neurological: Cranial nerves II-XII grossly intact, DTR 2+/4. No acute focal neurological deficit. Psych/Mental Status: Flat affect. Medical Records Data Medical Nutrition Assessment Dietitian: Malnutrition Criteria Met Start: 10/19/23 17:00 Freq: Status: Active Protocol: Document 10/23/23 09:30 [facility] (Rec: 10/23/23 09:30 [facility] [id number]) Nutrition Malnutrition Evidence of Malnutrition Exists Yes Malnutrition (severe): Acute Illness/Injury Evidenced By Suboptimal Energy Intake ( Severe),Weight Loss (Severe) Intake Problem Inadequate Oral Intake Status Inactive Problem Clinical Problem Acute Disease or Injury Related Malnutrition Etiology Severe protein-calorie malnutrition in the context of acute illness related to inadequate oral/energy intake and swallowing difficulty Signs/Symptoms as evidenced by BMI 21.5, PO meeting less than 50% estimated nutrition needs x 2 weeks river captain and ~5% unintentional weight loss in less than 1 month and currently NPO Status Active Problem Recommendation Dietitian Recommendations/Changes Rec continue Regular Diet as tolerated with consistency/ texture as per LEAD MAINTENANCE TECHNICIAN d/t signs and symptoms of malnutrition. Add 4 oz ensure plus high protein 4x/day w/ medpass for increased nutrition if consumed. Weight / BMI Weight Weight: 137 lb 8 oz Body Mass Index (BMI) 21.5 ABG / Lab / Microbiology Data 10/23/23 06:00 10/23/23 06:00 Laboratory: Laboratory Results - last 24 hr 10/23/23 06:00: WBC 10.0, RBC 4.15 L, Hgb 12.8 L, Hct 37.8 L, MCV 91.1, MCH 30.8, MCHC 33.9, RDW Std Deviation 48.4 H, RDW Coeff of Elidia 14.4, Plt Count 284, MPV 9.8, Immature Gran % (Auto) 0.500, Neut % (Auto) 75.9 H, Lymph % (Auto) 12.8 L, [place] % (Auto) 8.3, Eos % (Auto) 2.0, Baso % (Auto) 0.5, Absolute Neuts (auto) 7.6, Absolute Lymphs (auto) 1.28, Nucleated RBC % 0, Sodium 137, Potassium 2.8 L, Chloride 103, Carbon Dioxide 27.0, Anion Gap 7, BUN 10, Creatinine 0.35 L, Estim Creat Clear Calc 77.96, Est GFR (MDRD) Af Amer 321, Est GFR (MDRD) Non-Af 266, BUN/Creatinine Ratio 28.7 H, Glucose 104, Calcium 8.3 L Microbiology: Microbiology 10/19/23 14:30 Sputum, Induced/Lukens Gram Stain - Final 10/19/23 14:30 Sputum, Induced/Lukens Respiratory Culture - Final Escherichia coli Klebsiella oxytoca Haemophilus influenzae D/C Instructions Discharge Diet: No restrictions Please Follow Up With: Syd Coleman MD When: next week Meaningful Use Info Meaningful Use Meaningful Use Diagnoses (Choose all that apply): None applicable Ischemic Stroke Statin Dosing Therapy Reference: STATIN DOSE THERAPY REFERENCE: * Patients > 75 years receive moderate or high dose statin therapy. * Patients 75 years or YOUNGER should receive HIGH intensity statin dose unless contraindicated. You will be required to document reason for non-treatment if statin daily dose does not meet guidelines. HIGH DOSE STATIN THERAPY DAILY Atorvastatin > than or = to 40 mg Rosuvastatin > than or = to 20 mg Amlodipine + Atorvastatin > than or = to 2.5/40 mg Ezetimibe + Simvastatin 10/80 mg Simvastatin 80mg Discharge Plan Admission Admit Date/Time: 10/19/23 15:35 Primary Reason for Your Visit: Laryngeal mass. Acute bronchitis Attending Provider: Kevin Carmona Primary Care Provider: Care Physician,No Primary Consulting Providers: Priscilla Chris; Syd Coleman; Mickey Palacios Instructions Additional Instructions / Restrictions: Hold carvedilol and diltiazem for heart less than 50 or systolic blood pressure less than 100 mmHg. Hold lisinopril if SBP less than 110 mmHg. Hold Lasix if SBP less than 120 with the Discharge Orders/Prescriptions Prescriptions: New acetaminophen 325 mg Tablet 650 mg PO Q4H PRN PRN (Reason: Pain Score 1-10) Qty: 0 0RF ipratropium-albuterol 0.5 mg-3 mg(2.5 mg base)/3 mL Solution For Nebulization 3 ml inhalation Q4H PRN (Reason: SOB) Qty: 0 0RF nicotine 21 mg/24 hr Patch 24 Hour 21 mg transdermal DAILY 28 Days Qty: 0 0RF diltiazem HCl [Cardizem LA] 240 mg tablet extended release 24 hr 240 mg PO DAILY Qty: 30 2RF levofloxacin 500 mg tablet 500 mg PO DAILY 5 Days Qty: 5 0RF Continued atorvastatin 40 mg Tablet 40 mg PO QHS Qty: 30 2RF thiamine HCl (vitamin B1) [Vitamin B-1] 100 mg Tablet 100 mg PO DAILYCM Qty: 30 2RF Changed carvedilol [Coreg] 3.125 mg tablet 6.25 mg PO BID 14 Days Qty: 28 0RF Rx Instructions: must administer with a meal/food Held furosemide 40 mg Tablet 40 mg PO DAILY Qty: 30 2RF Hold Instructions: Hold for 5 days lisinopril 5 mg Tablet 5 mg PO DAILY Qty: 30 2RF Hold Instructions: Hold for 5 days. Discontinued prednisone 20 mg Tablet 40 mg PO BREAKFAST Qty: 6 0RF Referrals / Follow Up: Jasper Montelongo DO [Med Staff - Active Staff] - Within 1 Month (copd. On trach collar) Syd Coleman MD [Med Staff - Active Staff] - Within 2 Weeks Care Physician,No Primary [Primary Care Provider] - Disposition Disposition (needs filled in before D/C Order can be placed): [facility]idential Facility Charges/Coding Addendum Addendum: Please cancel the billing charge of the progress note today. Visit Charges Inpatient E&M: 43205 Disch Hosp >30min
--- NOTE | 2023-10-23 14:26 | CASEMGMT ---
Addendum entered by Mary Anne Hernandez 10/23/23 15:09: SW also left a message with Homa from [employer] regarding a Medicaid application for patient. Mary Anne SCHILLING Addendum entered by Mary Anne Hernandez 10/23/23 15:09: SW called TCU and patient will go to room 7. LIAM called patient's daughter Georgina and let her know patient's room number and that someone in ICU will call her when patient is being moved to TCU. LIAM spoke with EXPLOSIVES MIXER OPERATOR in ICU and asked that someone call Georgina when patient is being moved. Mary Anne SCHILLING Original Note: Patient is ready for discharge back to TCU. LIAM spoke with Nicolasa in TCU and she confirmed that is fine for patient to return today. LIAM called patient's daughter Georgina and she confirmed the plan is for patient to return to TCU. Georgina was asking about Medicaid. LIAM told her SW can check with Homa, the individual that does the Medicaid applications to see if she can talk with patient. Georgina said she would appreciate that. Georgina would like a call when patient is being moved to TCU and which room he will be in. Plan: d/c back to [facility] TCU under skilled level of care. Mary Anne SCHILLING
[2023-10-23] MEDS: dilTIAZem CD 240 MG Capsule PO (15:06)
--- NOTE | 2023-10-23 15:49 | CASEMGMT ---
LIAM spoke with Homa from [employer]. Homa screened patient when he was on PCU before. Patient would be over on resources so he would probably have a spend down. Homa was going to call patient's daughter and explain this information. Mary Anne Hernandez BUSINESS ETHICS PROFESSOR SHAKIR
== END 2023-10-23 17:48 | disposition skilled nursing facility (03) | DRG 4 ==
LOC: SDC 10-20 08:39 → ICU 10-20 08:39
PROVIDERS: Internal Medicine; Internal Medicine Critical Care Medicine; Student in an Organized Health Care Education/Training Program; Admitting Provider Otolaryngology; Referring Provider Otolaryngology; Visit Provider Internal Medicine
PROC: 0CJS8ZZ Inspection of Larynx, Via Natural or Artificial Opening Endoscopic (ICD-10-PCS; CPT 31575; principal; 2023-10-19 12:15)
PROC: 0B110F4 Bypass Trachea to Cutaneous with Tracheostomy Device, Open Approach (ICD-10-PCS; principal; 2023-10-19 12:45)
DX: J95.821 Acute postprocedural respiratory failure (principal); E43 Unspecified severe protein-calorie malnutrition; I48.92 Unspecified atrial flutter; J44.0 Chronic obstructive pulmonary disease with (acute) lower respiratory infection; I50.22 Chronic systolic (congestive) heart failure; J44.1 Chronic obstructive pulmonary disease with (acute) exacerbation; Z93.0 Tracheostomy status; C32.1 Malignant neoplasm of supraglottis; I11.0 Hypertensive heart disease with heart failure; B96.1 Klebsiella pneumoniae [K. pneumoniae] as the cause of diseases classified elsewhere; B96.20 Unspecified Escherichia coli [E. coli] as the cause of diseases classified elsewhere; I48.91 Unspecified atrial fibrillation; F10.20 Alcohol dependence, uncomplicated; E78.00 Pure hypercholesterolemia, unspecified; F17.210 Nicotine dependence, cigarettes, uncomplicated; J20.1 Acute bronchitis due to Hemophilus influenzae; Y90.9 Presence of alcohol in blood, level not specified; B96.3 Hemophilus influenzae [H. influenzae] as the cause of diseases classified elsewhere; Z68.21 Body mass index [BMI] 21.0-21.9, adult; Z79.899 Other long term (current) drug therapy
CPT/HCPCS: 31720; 36415; 36600; 71045; 71275; 74230; 80048; 80053; 82550; 82803; 83605; 83735; 83880; 84100; 84478; 84484; 85025; 87070; 87077; 87186; 87205; 88305; 88341; 88342; 92526; 92610; 92611; 93005; 94002; 94003; 94640; 94660; 94762; 96374; 97162; 97166; 97530; 97535; 97802; 99283; J7120; Q9967; A4216; J2405

== ENCOUNTER 2023-10-23 17:49 | Inpatient (IN) | payer MEDICARE, SELFPAY ==
[2023-10-23 17:54] VITALS: BP 97/78; PULSE 97; RESP 20; TEMP 36.9; O2SAT 93; BMI 19.5
[2023-10-23] MEDS: 0.9% Saline Lock 10 ML Syringe IV (20:16)
[2023-10-23] MEDS: Atorvastatin Calcium 40 MG Tablet PO (21:56)
[2023-10-24 07:37] LABS: Absolute Lymphocyte Count 1.15 X10^3/uL (0.83-4.51); Basophil# 0.05 X10^3/uL; Basophil% 0.6 % (0-1); Eosinophil# 0.26 X10^3/uL; Eosinophils% 3.1 % (0-5); Hematocrit 36.3 % (40-54); Hemoglobin 12.1 g/dL (13.0-16.5); Lymphocyte # 1.15 X10^3/ul (0.83-4.51); Lymphocyte % 13.7 % (19-41); Mean Corp Hgb Conc 33.3 g/dL (32-36); Mean Corpuscular Hgb 30.7 pg (27.0-32.0); Mean Corpuscular Volume 92.1 fL (80-94); Mean Platelet Vol. 10.4 fl (6.2-12.0); Monocyte# 0.88 X10^3/uL; Monocyte% 10.5 % (0-10); NRBC Flagged by Analyzer 0 % (0-5); Neutrophil % 71.4 % (47-70); Platelet Count 311 K/mm3 (150-450); RBC Distribution Width CV 14.4 % (11.6-14.6); RBC Distribution Width SD 48.6 fl (35.1-43.9); Red Blood Count 3.94 M/mm3 (4.6-6.2); White Blood Count 8.4 K/mm3 (4.4-11.0)
[2023-10-24 07:58] LABS: ALB/GLOB Ratio 0.7 RATIO (0.9-2.4); AST(SGOT) 35 U/L (15-37); Alanine Aminotransfer ALT/SGPT 55 U/L (16-61); Albumin, Serum 2.5 g/dL (3.2-5.0); Alkaline Phosphatase 56 U/L (45-117); Anion Gap 8 (5-15); BUN 11 mg/dL (7-18); BUN/Creat Ratio 35.8 RATIO (10-20); Calcium,Total 8.6 mg/dL (8.5-10.1); Chloride 106 mmol/L (98-107); Creatinine, Serum 0.31 mg/dL (0.70-1.30); EST Glomerular Filtration Rate 308 mL/min (>60); Est Glom Filt Rate - Afr Amer 373 mL/min (>60); Estimated Creatinine Clearance 75.01 ml/min; Globulin 3.5 g/dL (2.2-4.2); Glucose 97 mg/dL (74-106); Magnesium 1.9 mg/dL (1.6-2.6); Potassium 2.5 mmol/L (3.5-5.1); Sodium Level 138 mmol/L (136-145)
[2023-10-24 08:30] VITALS: BP 117/77; PULSE 96; RESP 18; TEMP 37; O2SAT 93
[2023-10-24] MEDS: Potassium Chloride Oral Tablet 20 MEQ 40 MEQ PO ×2 (08:31→12:17)
[2023-10-24] MEDS: Furosemide 40 MG Tablet PO (08:36)
[2023-10-24] MEDS: Thiamine Hydrochloride 100 MG Tablet PO (08:36)
[2023-10-24] MEDS: dilTIAZem CD 240 MG Capsule PO (08:37)
[2023-10-24] MEDS: Carvedilol 6.25 MG Tablet PO ×2 (08:37→18:21)
[2023-10-24] MEDS: Lisinopril 5 MG Tablet PO (08:37)
[2023-10-24] MEDS: levoFLOXacin 500 MG Tablet PO (09:57)
[2023-10-24] MEDS: Tuberculin,Purif.prot.deriv. 50 TU/ML Vial 0.1 ML ID (09:57)
[2023-10-24 10:00] VITALS: O2SAT 93
--- NOTE | 2023-10-24 12:16 | HP.PCM_ITS ---
[facility] - General General Date of Admission: 10/23/23 Date of Service: 10/24/23 Chief Complaint: Debility HPI Narrative CHACORTA CONCEPCION, is a 68 YO M with a PMH of tobacco dependence, alcohol use/abuse, COPD, hyperlipidemia and dysphagia who presented to the emergency department at [facility] on 10/08/2023 with respiratory distress. He was admitted to the hospital and placed on doxycycline, Solu-Medrol and a phenobarb taper for alcohol withdrawal. He was on BiPAP. Transthoracic echocardiogram showed a 40% ejection fraction with global left ventricular systolic dysfunction and mild TR. While in the hospital he was seen by Dr. Escobedo who noted a right laryngeal mass with right vocal cord paralysis, suspicious for cancer. He recommended a biopsy on 10/19/2023. He was transferred to TCU for debility on 10/15/2023. Laryngoscopy showed a large false vocal cord mass extending to involve the right true vocal cord and immediate subglottis. It definitely extended to involve the anterior commissure. Multiple biopsies were taken. Following the biopsies he developed severe stridor and had to have an emergency tracheostomy. He was intubated through the tracheostomy. He was placed on a ventilator and admitted to the ICU under the hospitalist service. The following morning he passed his spontaneous breathing trial and was transitioned to a humidified trach collar with supplemental oxygen. 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 He was transferred back to TCU on 10/23/23 for PT/OT/ST to strengthen and rehabilitate so that he may return home. Will need follow up with ENT and oncology going forward to develop a plan of care. Afebrile Blood pressure today is 97/78 with a mean arterial pressure of 84. He is 93% saturated on a 6 lpm trach collar. He ate 75 to 100% of his breakfast today. Weight is down approximately 6 pounds since admission to the hospital on 10/08/2023. He has been diagnosed with severe malnutrition by the dietitian. All lab from this morning was personally reviewed. White blood cell count is 8.4. Hemoglobin is 12.1 which is down from 12.8 yesterday. Platelets are within normal limits. Sodium is 138 and the potassium is markedly decreased at 2.5, down from 2.8 yesterday. Serum bicarb is normal. The BUN is 11 with a creatinine of 0.31 and a BUN/creatinine ratio of 35.8. Phosphorus is low at 2.0 and the magnesium is 1.9. LFTs are within normal limits. The albumin is low at 2.5. Chcaorta is non-verbal due to the trach. He has not been started on a Passy-Lenox valve yet. He is able to answer yes and no questions and follow commands. Has been drinking since he was a teenager. There is a FH of alcoholism. Has tried to stop drinking and smoking in the past but, has always gone back to it. HAs never been to AA. He denies any hx of anxiety depression and has never been on medication or had any psychotherapy. He has some swelling in the ankles and he said yes when I asked him if this is chronic. He understands that the laryngeal CA is related to drinking and smoking. HAs not done either since 10/08/23. He knows about 180 and is will to follow up there at [place]. [facility] Medical History (Updated 10/24/23 @ 17:[address] Kathryn Vega, DO) Tobacco abuse Alcoholism Agoraphobia Medical non-compliance Alcohol abuse Acute hypoxic respiratory failure Esophageal mass Wears dentures Wears glasses Cardiology follow-up encounter Difficulty swallowing Smoker High cholesterol COPD (chronic obstructive pulmonary disease) History of CHF (congestive heart failure) Home Medications ?Medication ?Instructions ?Recorded ?Last Taken ?Type atorvastatin 40 mg tablet 40 mg PO QHS Cholesterol #30 tabs 10/15/23 10/14/23 Rx furosemide 40 mg tablet 40 mg PO DAILY Fluid retention #30 10/15/23 Unknown Rx tabs lisinopril 5 mg tablet 5 mg PO DAILY BP #30 tabs 10/15/23 10/15/23 Rx thiamine HCl (vitamin B1) 100 mg 100 mg PO DAILYCM Supplement #30 10/15/23 10/14/23 Rx tablet (Vitamin B-1) tabs acetaminophen 325 mg tablet 650 mg (2 x 325 mg) PO Q4H PRN PRN 10/23/23 Unknown Rx Pain Score 1-10 #0 tabs carvedilol 3.125 mg tablet (Coreg) 6.25 mg (2 x 3.125 mg) PO BID 10/23/23 Unknown Rx heart 14 days #28 tabs diltiazem HCl 240 mg 240 mg PO DAILY heart #30 tabs 10/23/23 Unknown Rx tablet,extended release 24 hr (Cardizem LA) ipratropium 0.5 mg-albuterol 3 mg 3 ml inhalation Q4H PRN SOB #0 mL 10/23/23 10/23/23 11:10 Rx (2.5 mg base)/3 mL nebulization soln levofloxacin 500 mg tablet 500 mg PO DAILY infection 5 days 10/23/23 Unknown Rx #5 tabs nicotine 21 mg/24 hr daily 21 mg transdermal DAILY smoking 28 10/23/23 10/23/23 09:50 Rx transdermal patch days #0 ea Allergy/AdvReac Type Severity Reaction Status Date / Time No Known Allergies Allergy Verified 10/19/23 11:06 Family History unable to obtain unable to obtain (Pt is non-verbal due to presence of trach) Surgical History (Updated 10/24/23 @ 17:[address] Kathryn Vega DO) History of laryngoscopy History of surgery Social History household members: none Smoking Status: Current every day smoker tobacco type: cigarettes alcohol intake: current alcohol intake frequency: 3 or more drinks per day Alcohol type: beer details: 6 24 ounce cans of beer daily. substance use type: does not use ROS ROS Narrative Review of systems is very limited due to the fact that the patient is nonverbal and I am limited to asking yes and no questions. Constitutional Constitutional: Reports change in weight, poor appetite and weight loss; Denies difficulty sleeping Eyes Eyes: Denies change in vision ENT HEENT: Reports dysphagia; Denies dizziness or mouth pain Cardiovascular Cardiovascular: Reports dyspnea on exertion, easily tiring during activity, edema and pedal edema; Denies chest pain Respiratory/Chest Respiratory/Chest: Reports cough, difficulty clearing secretions, productive cough and shortness of breath with exertion; Denies portable oxygen @ home Gastrointestinal Gastrointestinal: Denies abdominal pain, constipation, diarrhea, nausea or vomiting Genitourinary Genitourinary: Denies dysuria Integumentary Integumentary: Denies pruritus or rash Neurologic Neurologic: Reports other Details: Nonverbal secondary to presence of tracheostomy and has not been trained in the Passy-Elfego valve yet. Psychiatric Psychiatric: Reports anxiety and other Details: Says yes to anxiety. A lot has happened to him recently and his mind is racing at times ; Denies depression, suicidal ideation or visual hallucinations Hematologic/Lymphatic Hematologic/Lymphatic: Reports easy bleeding Vital Signs Vital Signs Vital Signs: 10/23/23 17:54 10/23/23 17:54 10/24/23 09:21 Temperature 98.4 F Temperature Source Temporal Pulse Rate 97 97 Pulse Rhythm Irregular Pulse Strength Normal (2+) Respiratory Rate 20 H 20 H Respiratory Effort Labored Respiratory Depth Normal Respiratory Pattern Normal Blood Pressure 97/78 Blood Pressure Mean 84 Blood Pressure Source Monitor Blood Pressure Position Sitting Blood Pressure Location Left Arm Pulse Ox 93 93 Oxygen Delivery Method Trach Collar Trach Collar Oxygen Flow Rate (L/min) 2 1 Fraction of Inspired Oxygen (FIO2) 28 Weight Weight: 132 lb 4.8 oz Body Mass Index (BMI) 19.5 Physical Exam Const alert and no apparent distress Constitutional Narrative: He is a little tremulous. Denies lightheadedness sitting up in the chair at the bedside. He is cachectic. He appears older than his stated age. Making good eye contact with me. General Appearance: cooperative Eyes EOMs intact bilaterally, conjunctivae normal and no scleral icterus Eyes Narrative: No discharge from the eyes Neck Neck Narrative: has a tracheostomy and is getting supplemental oxygen through a trach collar. Cough and clears his throat frequently Chest Chest: symmetrical chest wall rise Resp Resp Narrative: Diminished BS's throughout. Lungs have no wheezing and no crackles. He is not tachypneic. No accessory muscle use Cardio regular rate, regular rhythm, no murmurs, no rub and no gallops Cardio Narrative: No ectopy GI normal to inspection, nondistended, normoactive bowel sounds, soft to palpation and non-tender GI Narrative: No guarding with palpation no CVA tenderness Extremity no calf tenderness Extremity Narrative: has pitting edema of both ankles. No pretibial edema. NO EDIS hose in place. Legs are dependent. No compression stockings Skin Skin Narrative: HE is very pale. He has erythema at the sites of previous IV's with a hardened vein that tracks proximally. There is increased warmth to touch. Rashes: no rashes Neuro CN's II-XII intact bilaterally and moves all extremities Psych Psych Narrative: Not much facial expression. Makes eye contact with me. Seems a little anxious. Denies insomnia. Appearance: appropriate Results Lab / Micro Data 10/24/23 06:23 10/24/23 06:23 Labs: Laboratory Results - last 24 hr 10/24/23 06:23: WBC 8.4, RBC 3.94 L, Hgb 12.1 L, Hct 36.3 L, MCV 92.1, MCH 30.7, MCHC 33.3, RDW Std Deviation 48.6 H, RDW Coeff of Elidia 14.4, Plt Count 311, MPV 10.4, Immature Gran % (Auto) 0.700, Neut % (Auto) 71.4 H, Lymph % (Auto) 13.7 L, [place] % (Auto) 10.5 H, Eos % (Auto) 3.1, Baso % (Auto) 0.6, Absolute Neuts (auto) 6.0, Absolute Lymphs (auto) 1.15, Nucleated RBC % 0, Sodium 138, Potassium 2.5 L*, Chloride 106, Carbon Dioxide 24.0, Anion Gap 8, BUN 11, Creatinine 0.31 L, Estim Creat Clear Calc 75.01, Est GFR (MDRD) Af Amer 373, Est GFR (MDRD) Non-Af 308, BUN/Creatinine Ratio 35.8 H, Glucose 97, Calcium 8.6, Phosphorus 2.0 L, Magnesium 1.9, Total Bilirubin 0.50, AST 35, ALT 55, Alkaline Phosphatase 56, T otal Protein 6.0 L, Albumin 2.5 L, Globulin 3.5, Albumin/Globulin Ratio 0.7 L Assessment & Plan Assessment/Plan (1) Debility: (2) Laryngeal mass: (3) History of laryngoscopy: (4) Laryngeal squamous cell carcinoma: (5) Hypophosphatemia: (6) Acute anemia: (7) Severe protein-calorie malnutrition: (8) Hypokalemia: (9) Cardiomyopathy: QUALIFIERS: Cardiomyopathy type: alcoholic Qualified Code(s): 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 There is no primary care physician for this patient listed. Will have health social work professor give him a list of local PCPs accepting new patients. May also have to follow-up with oncology. Dr. Coleman spoke to Chacorta and his dtr this AM and discussed plans for additional W/U and tx. AM lab including CMP, CBC, Mag and Phos Supplement phosphorus and recheck a phosphorus level on Thursday. Also order a BMP and CBC without differential on Thursday. Will need to discuss with ENT any testing they would like ordered while he is on TCU. Refer to [facility] at [place] for counselling Smoking cessation was discussed with him and I let him know that the hospital has a smoking cessation program if he needs help. We also discussed the alcohol abuse and that it takes a lot of support to quit any type of addiction. Start Wellbutrin 75 mg twice daily to aid in smoking cessation and decreased cravings. I also suspect he is depressed and anxious. He has been through a lot recently and has a depressed affect. Continue the nicotine patch. Charges/Coding Visit Charges Inpatient E&M: 90884 SNF Init L2
[2023-10-24 14:36] VITALS: O2SAT 97
[2023-10-24] MEDS: Na Biphos/Potassium Phosphate PACKET 1 PACKET PO ×2 (14:57→22:28)
[2023-10-24] MEDS: Ensure Plus High Protein 120 ML LIQUID PO (18:26)
[2023-10-24 20:20] VITALS: O2SAT 96
[2023-10-24] MEDS: Atorvastatin Calcium 40 MG Tablet PO (22:28)
[2023-10-24] MEDS: buPROPion 75 MG Tablet PO (22:28)
[2023-10-24] MEDS: Menthol/Lanolin/Calamine/Znox 113 GM Tube 1 APPLIC TOPICAL (22:30)
[2023-10-25 05:22] LABS: Anion Gap 8 (5-15); BUN 14 mg/dL (7-18); Calcium,Total 8.6 mg/dL (8.5-10.1); Chloride 105 mmol/L (98-107); Creatinine, Serum 0.28 mg/dL (0.70-1.30); EST Glomerular Filtration Rate 343 mL/min (>60); Est Glom Filt Rate - Afr Amer 414 mL/min (>60); Estimated Creatinine Clearance 75.01 ml/min; Glucose 107 mg/dL (74-106); Potassium 3.1 mmol/L (3.5-5.1); Sodium Level 139 mmol/L (136-145)
[2023-10-25] MEDS: Enoxaparin 40 MG/0.4 ML Syringe SC (06:03)
[2023-10-25] MEDS: Na Biphos/Potassium Phosphate PACKET 1 PACKET PO ×3 (06:03→23:20)
[2023-10-25] MEDS: Carvedilol 6.25 MG Tablet PO ×2 (10:03→17:44)
[2023-10-25] MEDS: Potassium Chloride Oral Tablet 20 MEQ PO (10:04)
[2023-10-25] MEDS: dilTIAZem CD 240 MG Capsule PO (10:06)
[2023-10-25] MEDS: levoFLOXacin 500 MG Tablet PO (10:06)
[2023-10-25] MEDS: buPROPion 75 MG Tablet PO ×2 (10:07→23:21)
[2023-10-25] MEDS: Thiamine Hydrochloride 100 MG Tablet PO (10:10)
[2023-10-25] MEDS: Menthol/Lanolin/Calamine/Znox 113 GM Tube 1 APPLIC TOPICAL ×2 (10:15→23:08)
--- NOTE | 2023-10-25 10:17 | NURSING ---
#8 shiley inner cannula inserted by respiratory this AM. no suction needed at this time. pt able to cough up secretions. dressing changed around outer cannula. duoderm soft dressing applied under outer cannula d/t skin contact pressing on sternum
[2023-10-25] MEDS: Ensure Plus High Protein 120 ML LIQUID PO ×3 (10:18→17:38)
[2023-10-25] MEDS: Potassium Chloride Oral Tablet 20 MEQ 40 MEQ PO (10:26)
[2023-10-25] MEDS: Magnesium Chloride 64 MG Delay Rel.Tablet 128 MG PO (10:28)
[2023-10-25 10:31] VITALS: BP 100/62; PULSE 80
--- NOTE | 2023-10-25 10:34 | NURSING ---
REMOVED OLD NICOTINE PATCH FROM LEFT DELT. NEW PATCH TO RT DELT. WASTED OLD PATCH IN DESTROYER,WITNESS BY RN.
[2023-10-25 16:00] VITALS: BP 101/70; PULSE 80; RESP 20; TEMP 37; O2SAT 96
--- NOTE | 2023-10-25 16:49 | NURSING ---
INNER CANNULA #8 CHANGED TODAY. CLEANED AND NEW DRESSING UNDER NEAR TRAC SITE. PT SUCTIONED X4 TODAY DUE TO ALOT OF SECRETIONS. HUMIDIFICATION COLLAR ON AND WATER BOTTLE CHANGED AND AT 6L. TRIED TO TEACH PT ON USING YANKER IF NEED,PT REFUSED.
[2023-10-25] MEDS: 0.9% Saline Lock 10 ML Syringe IV ×2 (18:08→23:13)
[2023-10-25 19:28] VITALS: O2SAT 96
[2023-10-25] MEDS: Atorvastatin Calcium 40 MG Tablet PO (23:20)
[2023-10-26] VITALS (7 sets, daily range): BP systolic 100–102; BP diastolic 32–70; PULSE 72–86; RESP 19–20; TEMP 37; O2SAT 93–96
[2023-10-26] MEDS: Na Biphos/Potassium Phosphate PACKET 1 PACKET PO ×3 (04:47→20:49)
[2023-10-26] MEDS: Enoxaparin 40 MG/0.4 ML Syringe SC (04:49)
[2023-10-26 06:06] LABS: Anion Gap 6 (5-15); BUN 17 mg/dL (7-18); Calcium,Total 9.2 mg/dL (8.5-10.1); Chloride 105 mmol/L (98-107); Creatinine, Serum 0.34 mg/dL (0.70-1.30); EST Glomerular Filtration Rate 274 mL/min (>60); Est Glom Filt Rate - Afr Amer 331 mL/min (>60); Estimated Creatinine Clearance 75.01 ml/min; Glucose 103 mg/dL (74-106); Potassium 3.7 mmol/L (3.5-5.1); Sodium Level 138 mmol/L (136-145)
[2023-10-26] MEDS: Ipratropium/Albuterol Sulfate 3 ML AMPUL.NEB INHALATION ×3 (08:37→20:07)
--- NOTE | 2023-10-26 09:20 | RAD_ITS ---
HISTORY: SOB, cough. TECHNIQUE: XR Chest 2 Views. COMPARISON: 10/19/2023. FINDINGS: LINES/TUBES: Tracheostomy tube remains in place. CARDIOMEDIASTINAL BORDERS: Stable. LUNGS: Radiographically clear. PLEURA: No pleural effusion or pneumothorax. RAD/Chest PA and Lateral IMPRESSION: No significant interval change. Electronically Signed: Lorie Smith MD at 11:26 EDT ,
--- NOTE | 2023-10-26 09:25 | NURSING ---
Patient complaining of shortness of breath this morning. Patient assessed. Sats 96% on 6L via trach collar. Large amounts of thick sputum on trach. Patient suctioned and trach care provided. RT called to assess. Breathing TX given. Updated Dr. Vega on patient. New order for chest PA and lateral.
[2023-10-26] MEDS: Carvedilol 6.25 MG Tablet PO (09:39)
[2023-10-26] MEDS: Thiamine Hydrochloride 100 MG Tablet PO (09:41)
[2023-10-26] MEDS: levoFLOXacin 500 MG Tablet PO (09:42)
[2023-10-26] MEDS: dilTIAZem CD 240 MG Capsule PO (09:42)
[2023-10-26] MEDS: Magnesium Chloride 64 MG Delay Rel.Tablet 128 MG PO (09:43)
[2023-10-26] MEDS: buPROPion 75 MG Tablet PO ×2 (09:43→20:49)
[2023-10-26] MEDS: Menthol/Lanolin/Calamine/Znox 113 GM Tube 1 APPLIC TOPICAL ×2 (09:44→20:52)
[2023-10-26] MEDS: Potassium Chloride Oral Tablet 20 MEQ PO (09:46)
[2023-10-26] MEDS: Ensure Plus High Protein 120 ML LIQUID PO ×3 (09:46→18:32)
--- NOTE | 2023-10-26 10:04 | PN_ITS ---
Subjective Subjective Asked by nursing to see patient who does not look good. He was complaining of shortness of breath earlier today. They are suctioning copious amounts of secretions from his trach. He denied chest pain. He received aerosols. Afebrile Vital signs are stable He is 94 to 96% saturated on a 6 L trach collar Oral fluid intake is poor. Objective Data Objective Data Vital Signs: Vital Signs Temp Pulse Resp BP Pulse Ox O2 Del Method O2 Flow Rate 98.6 F 86 20 H 100/70 96 Trach Collar 6 10/26/23 08:30 10/26/23 08:37 10/26/23 08:37 10/26/23 08:30 10/26/23 08:30 10/26/23 08:30 10/26/23 08:30 FiO2 28 10/25/23 19:28 Oxygen Flow Rate (L/min) 6 Oxygen Delivery Method Trach Collar Weight: 132 lb 4.8 oz Body Mass Index (BMI) 19.5 Intake & Output: Intake and Output for Last 24 Hours 10/24/23 10/25/23 10/26/23 23:59 23:59 23:59 Intake Total 360 / 360 245 / 245 120 / 120 Output Total 200 / 200 Balance 360 / 360 45 / 45 120 / 120 Lab / Micro Data 10/24/23 06:23 10/26/23 04:37 Labs: Laboratory Results - last 24 hr 10/26/23 04:37: Sodium 138, Potassium 3.7, Chloride 105, Carbon Dioxide 27.0, Anion Gap 6, BUN 17, Creatinine 0.34 L, Estim Creat Clear Calc 75.01, Est GFR (MDRD) Af Amer 331, Est GFR (MDRD) Non-Af 274, BUN/Creatinine Ratio 50.0 H, Glucose 103, Calcium 9.2 Physical Exam Const alert and no apparent distress Constitutional Narrative: Able to answer yes and no questions appropriately. Able to follow commands. General Appearance: cooperative HEENT Mouth: dry mucous membranes Resp Resp Narrative: Better air exchange today than at admission. Scattered coarse wheezing but no tight wheezing. No Rales. He is not tachypneic. No accessory muscle use. Breathing is not labored. Cardio regular rate, regular rhythm, no murmurs, no rub and no gallops Cardio Narrative: Heart sounds are somewhat distant. Occasional early beat. GI normal to inspection, nondistended, normoactive bowel sounds, soft to palpation and non-tender GI Narrative: No guarding with palpation. Extremity no calf tenderness General Extremity: Negative for edema Skin Rashes: no rashes Assessment & Plan Assessment/Plan (1) Acute respiratory distress: (2) History of tracheostomy: (3) Laryngeal squamous cell carcinoma: (4) Severe protein-calorie malnutrition: PLAN: Plan 1. PA and lateral chest x-ray ordered 2. I suspect he may have had a mucous plug and it has been mobilized. He is still receiving Levaquin and he is afebrile. Air exchange is better now than it was at admission to TCU. 3. Continue therapy Will review chest x-ray when it has been done. No changes to the drug regimen at this time. I encouraged him to increase his fluid intake to help prevent mucous plugging. I also stressed the importance of incentive spirometry and Pep. Charges/Coding Visit Charges Inpatient E&M: [address] [facility] Subs L1
[2023-10-26] MEDS: Acetylcysteine 800 MG/4 ML VIAL.NEB. INHALATION ×2 (13:35→20:07)
[2023-10-26] MEDS: Acetaminophen 325 MG Tablet 650 MG PO (20:48)
[2023-10-26] MEDS: Atorvastatin Calcium 40 MG Tablet PO (20:49)
[2023-10-27] VITALS (7 sets, daily range): BP systolic 93–98; BP diastolic 56–60; PULSE 79–92; RESP 20; TEMP 36.6; O2SAT 95–99; BMI 19.6
[2023-10-27 05:27] LABS: Hemoglobin 11.6 g/dL (13.0-16.5); Mean Corp Hgb Conc 33.1 g/dL (32-36); Mean Corpuscular Hgb 30.7 pg (27.0-32.0); Mean Corpuscular Volume 92.6 fL (80-94); Mean Platelet Vol. 9.3 fl (6.2-12.0); Platelet Count 308 K/mm3 (150-450); RBC Distribution Width CV 14.7 % (11.6-14.6); Red Blood Count 3.78 M/mm3 (4.6-6.2); White Blood Count 8.1 K/mm3 (4.4-11.0)
[2023-10-27 06:01] LABS: Anion Gap 7 (5-15); BUN 16 mg/dL (7-18); BUN/Creat Ratio 52.8 RATIO (10-20); Calcium,Total 8.6 mg/dL (8.5-10.1); Chloride 104 mmol/L (98-107); EST Glomerular Filtration Rate 313 mL/min (>60); Est Glom Filt Rate - Afr Amer 378 mL/min (>60); Estimated Creatinine Clearance 75.01 ml/min; Glucose 98 mg/dL (74-106); Phosphorus 3.2 mg/dL (2.5-4.9); Potassium 3.8 mmol/L (3.5-5.1); Sodium Level 138 mmol/L (136-145)
[2023-10-27] MEDS: Enoxaparin 40 MG/0.4 ML Syringe SC (06:28)
[2023-10-27] MEDS: Na Biphos/Potassium Phosphate PACKET 1 PACKET PO (06:29)
[2023-10-27] MEDS: Acetylcysteine 800 MG/4 ML VIAL.NEB. INHALATION ×2 (07:07→20:15)
[2023-10-27] MEDS: Ipratropium/Albuterol Sulfate 3 ML AMPUL.NEB INHALATION ×3 (07:07→20:15)
--- NOTE | 2023-10-27 08:53 | NURSING ---
Offered covid vaccine, VIS provided. Patient refuses at this time.
--- NOTE | 2023-10-27 09:14 | PHA.CONS_ITS ---
TCU RX Drug Regimen Review Subjective/Objective Subjective/Objective: Subjective: TCU Admission. 68 YOM hospitalized for acute respiratory failure with hypoxia 2/2 laryngeal mass/COPD then went to TCU 10/14. OR 10/18 for biopsy, trach placement and intubation. Admitted to TCU with debility for strengthening and rehabilitation. Objective: Allergies No Known Allergies Allergy (Verified 10/19/23 11:06) Current Medications Generic Name Dose Route Start Last Admin Trade Name Freq PRN Reason Stop Dose Admin Acetaminophen 650 mg 10/23/23 18:55 10/26/23 20:48 Acetaminophen 325 Mg Tablet PO 650 mg Q4H PRN PRN Administration Pain Score 1-10 Acetylcysteine 800 mg 10/26/23 10:30 10/27/23 07:07 Acetylcysteine 800 Mg/4 Ml Vial.Neb. INHALATION 800 mg BID.RT IKER Administration Albuterol/Ipratropium 3 ml 10/26/23 14:00 10/27/23 07:07 Ipratropium/Albuterol Sulfate 3 Ml Ampul.Neb INHALATION 3 ml TID.RT IKER Administration Atorvastatin Calcium 40 mg 10/23/23 22:00 10/26/23 20:49 Atorvastatin Calcium 40 Mg Tablet PO 40 mg QHS IKER Administration Bupropion HCl 75 mg 10/24/23 22:00 10/26/23 20:49 Bupropion 75 Mg Tablet PO 75 mg BID IKER Administration Calamine/Phenol 1 applic 10/24/23 22:00 10/26/23 20:52 Menthol/Lanolin/Calamine/Znox 113 Gm Tube TOPICAL 1 applic BID IKER Administration Protocol Carvedilol 6.25 mg 10/24/23 08:00 10/26/23 18:32 Carvedilol 6.25 Mg Tablet PO Not Given BIDCM IKER Protocol Diltiazem HCl 240 mg 10/24/23 10:00 10/26/23 09:42 Diltiazem Cd 240 Mg Capsule PO 240 mg DAILY IKER Administration Enoxaparin Sodium 40 mg 10/25/23 06:00 10/27/23 06:28 Enoxaparin 40 Mg/0.4 Ml Syringe SC 40 mg DAILY@0600 IKER Administration Furosemide 40 mg 10/24/23 10:00 10/26/23 09:42 Furosemide 40 Mg Tablet PO Not Given DAILY IKER Protocol Guaifenesin 1,200 mg 10/27/23 10:00 Guaifenesin 1,200 Mg Tablet PO BID [facility] Levofloxacin 500 mg 10/24/23 10:00 10/26/23 09:42 Levofloxacin 500 Mg Tablet PO 10/29/23 10:01 500 mg DAILY IKER Administration Lisinopril 5 mg 10/24/23 10:00 10/26/23 09:44 Lisinopril 5 Mg Tablet PO Not Given DAILY [facility] Protocol Magnesium Chloride 128 mg 10/25/23 10:00 10/26/23 09:43 Magnesium Chloride 64 Mg Delay Rel.Tablet PO 128 mg DAILY IKER Administration Nicotine 21 mg 10/24/23 10:00 10/26/23 09:43 Nicotine 21 Mg Patch TD 21 mg DAILY IKER Administration Nutritional Formula (Lactose Free) 120 ml 10/24/23 17:45 10/26/23 18:32 Ensure Plus High Protein 120 Ml Liquid PO 120 ml TIDCM IKER Administration Potassium Chloride 20 meq 10/25/23 08:00 10/26/23 09:46 Potassium Chloride Oral Tablet 20 Meq PO 20 meq DAILYCM IKER Administration Sodium Chloride 10 - 40 ml 10/23/23 17:58 10/25/23 23:13 0.9% Saline Lock 10 Ml Syringe IV 10 ml UD PRN Administration SALINE FLUSH Thiamine HCl 100 mg 10/24/23 08:00 10/26/23 09:41 Thiamine Hydrochloride 100 Mg Tablet PO 100 mg DAILYCM IKER Administration Tuberculin PPD 0.1 ml 10/31/23 10:00 Tuberculin,Purif.Prot.Deriv. 50 Tu/Ml Vial ID 10/31/23 10:01 X1 ONE Problem List History of tracheostomy (Acute) Acute respiratory distress (Acute) History of laryngoscopy (Acute) Hypophosphatemia (Acute) Acute anemia (Acute) Severe protein-calorie malnutrition (Acute) Hypokalemia (Acute) Cardiomyopathy (Acute) Tobacco abuse (Acute) Alcoholism (Acute) Laryngeal squamous cell carcinoma (Acute) Chronic HFrEF (heart failure with reduced ejection fraction) (Chronic) Debility (Acute) COPD (chronic obstructive pulmonary disease) (Chronic) Vital Signs Temp Pulse Resp BP Pulse Ox O2 Del Method O2 Flow Rate 98.6 F 85 20 H 102/32 L 98 Trach Collar 6 10/26/23 08:30 10/27/23 07:07 10/27/23 07:07 10/26/23 18:29 10/27/23 07:07 10/27/23 07:07 10/26/23 21:00 FiO2 28 10/27/23 07:07 Oxygen Flow Rate (L/min) 6 Oxygen Delivery Method Trach Collar Weight: 60.01 kg Body Mass Index (BMI) 19.5 Sodium 138 mmol/L (136-145) 10/27/23 05:08 Potassium 3.8 mmol/L (3.5-5.1) 10/27/23 05:08 Chloride 104 mmol/L (98-107) 10/27/23 05:08 Carbon Dioxide 27.0 mmol/L (21.0-32.0) 10/27/23 05:08 Anion Gap 7 (5-15) 10/27/23 05:08 BUN 16 mg/dL (7-18) 10/27/23 05:08 Creatinine 0.30 mg/dL (0.70-1.30) L 10/27/23 05:08 Est GFR (MDRD) Af Amer 378 mL/min (>60) 10/27/23 05:08 Est GFR (MDRD) Non-Af 313 mL/min (>60) 10/27/23 05:08 BUN/Creatinine Ratio 52.8 RATIO (10-20) H 10/27/23 05:08 Glucose 98 mg/dL (74-106) 10/27/23 05:08 Assessment/Plan: 1. Pain: acetaminophen 650mg PO Q4H PRN pain 1-10. Resident has had one PRN dose for a pain score of 5 in the back. Please continue to monitor for increased pain and PRN usage. 2. Klebsiella/E. coli/H. flu pneumonia: levofloxacin 500mg PO daily thru 10/29/23, Duoneb 3mL inhalation TID.RT, guaifenesin 1200mg PO BID and acetylcysteine 800mg inhalation BID.RT. Please continue to monitor for SOB, S/S of infection, renal function, diarrhea, painful joints and HR (last 85). 3. DVT prophylaxis: enoxaparin 40mg SC daily. Please continue to monitor for S/S of bleeding, hemoglobin (last 11.6g/dL), platelets (last 308,000) and renal function. 4. Hyperlipidemia: atorvastatin 40mg PO QHS. Please continue to monitor LFTs (last 10/24/23), lipid panel (last 10/17/23) and muscle pain. 5. Chronic HFrEF: lisinopril 5mg PO daily, diltiazem CD 240mg PO daily, carvedilol 6.25mg PO BID, furosemide 40mg PO daily. Please continue to monitor BP (last 102/32), SCr (last 0.3mg/dL), potassium (last 3.8mmol/L), edema and c ough. 6. Alcohol abuse: thiamine 100mg PO DAILYCM. Please continue to monitor. 7. GI prophylaxis (per H&P): magnesium chloride 128mg PO daily. Please continue to monitor magnesium levels (last 1.9mg/dlL 10/24/23). 8. Hypokalemia: potassium chloride 20mEq PO daily. Please continue to monitor potassium (last 3.8mmol/L). Assessment/Plan for indications treated with psychotropic medications: 1. Smoking cessation: nicotine 21mg topical daily and bupropion 75mg PO BID. GDR not appropriate as bupropion is being used for smoking cessation and it was just started. Please continue to monitor for nicotine cravings, HR, vivid dreams, suicidal ideation (black box warning), insomnia and dizziness. Smoking cessation dose for bupropion in combination with nicotine replacement therapy is bupropion SR 150mg PO daily x 3 days, then 150mg BID. Please consider increasing the dose. Thanks. Medical chart and medication regimen reviewed. The following medication i rregularities or issues were identified: 1. Bupropion 75mg PO BID. Smoking cessation dose for bupropion in combination with nicotine replacement therapy is bupropion SR 150mg PO daily x 3 days, then 150mg BID. Please consider increasing the dose. Thanks. Date Date of Note:: 10/27/23
--- NOTE | 2023-10-27 10:28 | NURSING ---
Received phone Call from Dr. Freeman office. Pt will need to bring a Number 6 uncuffed Trach tube to appt on 10/29/23 [id number].
[2023-10-27] MEDS: levoFLOXacin 500 MG Tablet PO (11:01)
[2023-10-27] MEDS: Furosemide 40 MG Tablet PO (11:01)
[2023-10-27] MEDS: Ensure Plus High Protein 120 ML LIQUID PO ×2 (11:01→18:30)
[2023-10-27] MEDS: dilTIAZem CD 240 MG Capsule PO (11:01)
[2023-10-27] MEDS: Thiamine Hydrochloride 100 MG Tablet PO (11:01)
[2023-10-27] MEDS: Magnesium Chloride 64 MG Delay Rel.Tablet 128 MG PO (11:02)
[2023-10-27] MEDS: buPROPion 75 MG Tablet PO ×2 (11:02→22:12)
[2023-10-27] MEDS: guaiFENesin 1,200 MG Tablet 1200 MG PO ×2 (11:02→22:11)
--- NOTE | 2023-10-27 11:20 | CASEMGMT ---
Social Work LIAM met with patient and daughter, Georgina at bedside to address concerns. Patient's daughter informed LIAM that she would like information in regards to becoming a paid caregiver for the patient. SW inquired about patient Medicaid status. Patient does not currently have Medicaid. Georgina informed LIAM that the patient is unable to obtain Medicaid due to current savings. Patient's daughter inquired about spend-down. In addition, Georgina informed that she would like patient to transition to [facility] care [facility] until the patient's apartment is ready at [facility]. SW discussed ferry terminal supervisor care/ intermediate care placement private pay for room and board cost. SW discussed potential programs to review for assistance becoming a caregiver. SW provided patient and daughter with information regard [facility] to assist with guidance for daughter to become caregiver. LIAM discussed potential for Medicaid approval pending ferry terminal supervisor care placement. Georgina informed LIAM that she spoke with someone regarding Medicaid, but could not provide further details. Georgina requested a list of nursing homes for placement. Georgina informed LIAM that she was notified that the patient will need to reside on TCU until 11/04. LIAM discussed patient's Medicare days; patient previously admitted on 10/14-D/C on 10/18 due to complications during biopsy. Patient has new trach. Patient readmitted to TCU on 10/23/2023. SW provided daughter with electronic list of correction providers with preferred geographical area, medical needs, and insurance network via [employer]. LIAM will continue to follow for discharge planning. SHAKIR Cross
--- NOTE | 2023-10-27 11:29 | NURSING ---
Addendum entered by Tiffanie Fernandez 10/27/23 18:29: Pt's bps low throughout today, Dr. Brian reviewed vitals and discontinued orders for Coreg, Cardizem, Lasix, and Lisinopril. Pt also received new order today for Mucinex d/t secretions. Original Note: Pt's bp 98/60 this morning, asymptomatic. Called and notified Dr. Brian of low bp and coreg, lisinopril doses held yesterday. Received order to hold dose(s) Coreg and Lisinopril this morning.
[2023-10-27] MEDS: Menthol/Lanolin/Calamine/Znox 113 GM Tube 1 APPLIC TOPICAL ×2 (11:38→22:10)
[2023-10-27] MEDS: Potassium Chloride Oral Tablet 20 MEQ PO (11:38)
[2023-10-27] MEDS: 0.9% Saline Lock 10 ML Syringe IV ×2 (11:39→22:15)
[2023-10-27] MEDS: Atorvastatin Calcium 40 MG Tablet PO (22:11)
[2023-10-28] MEDS: Enoxaparin 40 MG/0.4 ML Syringe SC (06:21)
[2023-10-28 07:05] VITALS: PULSE 90; RESP 20; O2SAT 94
[2023-10-28] MEDS: Ipratropium/Albuterol Sulfate 3 ML AMPUL.NEB INHALATION ×3 (07:05→19:30)
[2023-10-28] MEDS: Acetylcysteine 800 MG/4 ML VIAL.NEB. INHALATION ×2 (07:05→19:30)
--- NOTE | 2023-10-28 09:20 | CASEMGMT ---
Social Work- Care Planning IDT met with patient and daughterGeorgina at bedside to complete care plan meeting. Discussed patient progress with therapy (PT/OT/ST), dietary, and nursing. Patient is currently on high calorie/ high protein diet. Patient is progressing with speech therapy to assist with swallow eval and exercises. Patient is independent with bed mobility. Car transfers were contact guard/SBA. Patient is ambulating up to 100ft. SW educated patient and daughter of Medicare coverage and benefits. Co-pay is $204/day. SW provided patient's daughter with fpc facility provider list with pricing for watermelon harvesting supervisor care. Patient's daughter was previously provided resources for D[facility]. SW will continue to follow patient to support discharge. SHAKIR Cross
[2023-10-28] MEDS: Ensure Plus High Protein 120 ML LIQUID PO ×3 (10:08→16:59)
[2023-10-28] MEDS: Potassium Chloride Oral Tablet 20 MEQ PO (10:10)
[2023-10-28] MEDS: Magnesium Chloride 64 MG Delay Rel.Tablet 128 MG PO (10:11)
[2023-10-28] MEDS: guaiFENesin 1,200 MG Tablet 1200 MG PO ×2 (10:11→23:46)
[2023-10-28] MEDS: levoFLOXacin 500 MG Tablet PO (10:11)
[2023-10-28] MEDS: buPROPion 75 MG Tablet PO ×2 (10:11→23:46)
[2023-10-28] MEDS: Menthol/Lanolin/Calamine/Znox 113 GM Tube 1 APPLIC TOPICAL ×2 (10:12→23:45)
[2023-10-28] MEDS: Thiamine Hydrochloride 100 MG Tablet PO (10:12)
--- NOTE | 2023-10-28 10:43 | NURSING ---
REMOVED OLD NICOTINE PATCH AND APPLIED NEW PATCH TO RT SHOULDER. WASTED IN DESTROYER WITH RN.
[2023-10-28 14:15] VITALS: PULSE 89; RESP 18
[2023-10-28 16:00] VITALS: BP 96/65; PULSE 87; RESP 21; TEMP 36.6; O2SAT 96
--- NOTE | 2023-10-28 16:18 | CHAPLAIN ---
Type of Pastoral Visit ___ Initial Visit ___ Follow-up Visit ___ On-call Visit ___ General Patient Visit ___ Spiritual Assessment ___ Family Conference ___ Bereavement ___ Rapid Response ___ Code Blue ___ Other (describe below) Pastoral Care Referral From ___ Patient ___ Family ___ Nurse ___ Physician ___ Child And Adolescent Psychologist ___ Keno Writer/Runner ___ Other (describe below) Sacrament/Intervention ___ Active listening ___ Anointing ___ Sikh ___ Bereavement ___ Communion ___ Diana exploration ___ ___ Life review ___ Prayer ___ Reconciliation ___ Sacrament of Sick ___ Supportive presence ___ Wedding ___ Other (describe below) Pastoral Comments patient was receiving personal care from staff when visit was attempted today
[2023-10-28] MEDS: 0.9% Saline Lock 10 ML Syringe IV ×2 (16:56→23:45)
[2023-10-28 19:30] VITALS: PULSE 93; RESP 18; O2SAT 95
[2023-10-28 22:00] VITALS: PULSE 86; O2SAT 96
[2023-10-28] MEDS: Atorvastatin Calcium 40 MG Tablet PO (23:46)
[2023-10-29 03:54] VITALS: O2SAT 96
[2023-10-29] MEDS: Enoxaparin 40 MG/0.4 ML Syringe SC (06:04)
[2023-10-29 06:25] VITALS: PULSE 92; RESP 16; O2SAT 94
[2023-10-29] MEDS: Ipratropium/Albuterol Sulfate 3 ML AMPUL.NEB INHALATION ×2 (06:25→19:48)
[2023-10-29] MEDS: Acetylcysteine 800 MG/4 ML VIAL.NEB. INHALATION ×2 (06:25→19:48)
[2023-10-29] MEDS: Ensure Plus High Protein 120 ML LIQUID PO ×3 (07:57→17:04)
[2023-10-29] MEDS: Thiamine Hydrochloride 100 MG Tablet PO (07:58)
[2023-10-29] MEDS: Potassium Chloride Oral Tablet 20 MEQ PO (07:58)
[2023-10-29] MEDS: Magnesium Chloride 64 MG Delay Rel.Tablet 128 MG PO (07:58)
[2023-10-29] MEDS: buPROPion 75 MG Tablet PO ×2 (07:59→21:28)
[2023-10-29] MEDS: guaiFENesin 1,200 MG Tablet 1200 MG PO ×2 (07:59→21:28)
[2023-10-29] MEDS: Menthol/Lanolin/Calamine/Znox 113 GM Tube 1 APPLIC TOPICAL ×2 (08:03→21:27)
[2023-10-29] MEDS: levoFLOXacin 500 MG Tablet PO (10:35)
--- NOTE | 2023-10-29 10:42 | NURSING ---
REMOVED OLD NICOTINE PATCH AND WASTED IN DESTROYER WITNESS BY RN. PUT NEW PATCH ON PT LT SHOULDER.
--- NOTE | 2023-10-29 11:58 | NURSING ---
Guest Attendant Note; Activity Asset: Catia Arevalo is independent in his choice of daily activities. He has a new trach and unable to speak however will respond with head movement and can use the write board given to him. He watches tv, reads and family is with him daily. At this time he wishes to stay in his room and do room activities. Staff will do room visits and offer room activities and respect his right to say no.
--- NOTE | 2023-10-29 13:10 | NURSING ---
PT LEFT AT 1310 BY WHEEL CHAIR WITH FAMILY FOR APPOINTMENT WITH .
[2023-10-29 15:13] VITALS: BP 111/58; PULSE 89; RESP 18; TEMP 36.6; O2SAT 96
--- NOTE | 2023-10-29 15:15 | NURSING ---
PT RETURNED BY WHEEL CHAIR WITH FAMILY AT 1420. PT DAUGHTER STATED THAT REPLACED THE SIZE 8 TRACH WITH A SIZE 6 TRACH NO SUTURES. DAUGHTER ALSO STATED THAT SHE WAS CALLED AND A PET SCAN WAS SET UP FOR 11/03/23 AT 1030AM. ON 11/02/23 PT IS TO ONLY HAVE A DIET OF PROTEIN/LOW CARB/GREEN VEGGIES ONLY. NO SUGARS OR STARCHES. ON 11/03/23 AT MIDNIGHT PT IS TO BE NPO,WATER AND MEDS ONLY. WILL HAVE A PET SCAN AT 1030AM. RN AWARE
--- NOTE | 2023-10-29 15:22 | CHAPLAIN ---
Type of Pastoral Visit ___ Initial Visit ___ Follow-up Visit ___ On-call Visit ___ General Patient Visit ___ Spiritual Assessment ___ Family Conference ___ Bereavement ___ Rapid Response ___ Code Blue ___ Other (describe below) Pastoral Care Referral From ___ Patient ___ Family ___ Nurse ___ Physician ___ Label Printer ___ Intermediate Frame Tender ___ Other (describe below) Sacrament/Intervention ___ Active listening ___ Anointing ___ Mandaeism ___ Bereavement ___ Communion ___ Diana exploration ___ ___ Life review ___ Prayer ___ Reconciliation ___ Sacrament of Sick ___ Supportive presence ___ Wedding ___ Other (describe below) Pastoral Comments patient had gone to a doctor's appointment and was not available
--- NOTE | 2023-10-29 18:15 | CASEMGMT ---
Addendum entered by Jonah Gonzalez 10/29/23 18:26: Patient has Advanced Directive on file with healthcare POA assigned to Georgina Flowers. Original Note: Social Work- TCU Admit Note SW met with patient at bedside to complete initial intake assessment. SW introduced self and role. Patient is utilizing written communication to complete assessment. Patient verified demographics and emergency contact information. Patient informed SW that prior to admission, he was residing at [address] [place] [address]. Patient informed SW that he lived alone and completed ADLS/IADLS. Patient confirmed code status as Full Code. Patient of Medicare benefits and copays. Patient informed SW that goals are to transition to residential for continued care. Patient's daughter, Georgina was provided residential list for review. [place] () Patient informed SW that his daughter scheduled PET Scan. Patient requested that SW follow up with daughter. SW contacted patient's daughter, Georgina who informed SW that she received a call from an office requesting to schedule PET Scan. Georgina informed LIAM that PET Scan is scheduled for 11/03/2023 at 1030A; patient needs to arrive by 1015A. Georgina informed LIAM that she was notified by office that PET scan may not be completed due to patient residing on TCU. LIAM informed Georgina that a PET Scan is usually completed outpatient. SW to discuss with pediatric acute care unit nurse. LIAM will continue to follow to support discharge and care. SHAKIR Cross
--- NOTE | 2023-10-29 18:26 | CASEMGMT ---
Social Work SW completed patient MDS. BIM () and PhQ-2 (). Patient states feeling lonely sometimes. SHAKIR Cross
[2023-10-29 19:49] VITALS: PULSE 102; RESP 18; O2SAT 95
[2023-10-29] MEDS: Atorvastatin Calcium 40 MG Tablet PO (21:28)
[2023-10-29] MEDS: 0.9% Saline Lock 10 ML Syringe IV (21:30)
[2023-10-30] MEDS: Enoxaparin 40 MG/0.4 ML Syringe SC (05:39)
[2023-10-30 06:11] LABS: Absolute Lymphocyte Count 1.45 X10^3/uL (0.83-4.51); Absolute Neutrophil Count 4.4 X10^3/uL (2.0-7.7); Basophil# 0.05 X10^3/uL; Basophil% 0.7 % (0-1); Eosinophil# 0.18 X10^3/uL; Eosinophils% 2.5 % (0-5); Hematocrit 35.7 % (40-54); Hemoglobin 11.6 g/dL (13.0-16.5); Lymphocyte # 1.45 X10^3/ul (0.83-4.51); Lymphocyte % 20.3 % (19-41); Mean Corp Hgb Conc 32.5 g/dL (32-36); Mean Corpuscular Hgb 30.1 pg (27.0-32.0); Mean Corpuscular Volume 92.7 fL (80-94); Mean Platelet Vol. 9.8 fl (6.2-12.0); Monocyte# 0.99 X10^3/uL; Monocyte% 13.9 % (0-10); NRBC Flagged by Analyzer 0 % (0-5); Neutrophil # 4.38 X10^3/uL (2.7-7.7); Neutrophil % 61.3 % (47-70); Platelet Count 327 K/mm3 (150-450); RBC Distribution Width CV 14.4 % (11.6-14.6); RBC Distribution Width SD 48.9 fl (35.1-43.9); Red Blood Count 3.85 M/mm3 (4.6-6.2); White Blood Count 7.1 K/mm3 (4.4-11.0)
[2023-10-30 06:50] LABS: Anion Gap 8 (5-15); BUN 10 mg/dL (7-18); BUN/Creat Ratio 26.5 RATIO (10-20); Calcium,Total 8.6 mg/dL (8.5-10.1); Chloride 103 mmol/L (98-107); Creatinine, Serum 0.38 mg/dL (0.70-1.30); EST Glomerular Filtration Rate 242 mL/min (>60); Est Glom Filt Rate - Afr Amer 293 mL/min (>60); Estimated Creatinine Clearance 75.41 ml/min; Glucose 93 mg/dL (74-106); Potassium 3.8 mmol/L (3.5-5.1); Sodium Level 135 mmol/L (136-145)
[2023-10-30] MEDS: Ipratropium/Albuterol Sulfate 3 ML AMPUL.NEB INHALATION ×2 (07:15→19:00)
[2023-10-30 07:20] VITALS: PULSE 92; RESP 19
[2023-10-30] MEDS: Acetylcysteine 800 MG/4 ML VIAL.NEB. INHALATION ×2 (07:25→19:00)
[2023-10-30 08:33] VITALS: BP 108/56; PULSE 73; RESP 20; TEMP 37.3; O2SAT 95
[2023-10-30] MEDS: Menthol/Lanolin/Calamine/Znox 113 GM Tube 1 APPLIC TOPICAL ×2 (08:38→21:30)
[2023-10-30] MEDS: Thiamine Hydrochloride 100 MG Tablet PO (08:38)
[2023-10-30] MEDS: Potassium Chloride Oral Tablet 20 MEQ PO (08:38)
[2023-10-30] MEDS: guaiFENesin 1,200 MG Tablet 1200 MG PO ×2 (08:39→21:28)
[2023-10-30] MEDS: Magnesium Chloride 64 MG Delay Rel.Tablet 128 MG PO (08:39)
[2023-10-30] MEDS: buPROPion 75 MG Tablet PO ×2 (08:41→21:28)
[2023-10-30] MEDS: Ensure Plus High Protein 120 ML LIQUID PO ×3 (08:43→18:03)
--- NOTE | 2023-10-30 09:20 | CASEMGMT ---
Social Work LIAM received call from TCU Director, Elaine Leal informing LIAM that she spoke with patient's Radiologist and agreed to move forward with PET Scan scheduled on November 03, 2023 at 1030A. LIAM notified patient's daughter, Georgina via phone. LIAM will continue to follow SHAKIR Cross
--- NOTE | 2023-10-30 09:28 | NURSING ---
Hole Digger Operator Note; MDS for 10/30/2023 Complete
[2023-10-30 11:02] VITALS: O2SAT 95
[2023-10-30 13:21] VITALS: PULSE 101; RESP 19
--- NOTE | 2023-10-30 13:51 | NURSING ---
Patient has rash to face and neck that is starting to itch. Dr. Brian updated and topical ordered.
--- NOTE | 2023-10-30 14:35 | CHAPLAIN ---
Type of Pastoral Visit ___ Initial Visit _x__ Follow-up Visit ___ On-call Visit ___ General Patient Visit ___ Spiritual Assessment ___ Family Conference ___ Bereavement ___ Rapid Response ___ Code Blue ___ Other (describe below) Pastoral Care Referral From _x__ Patient _x__ Family ___ Nurse ___ Physician ___ Undertaker Assistant ___ Frickertron Checker ___ Other (describe below) Sacrament/Intervention _x__ Active listening ___ Anointing ___ Sabianist ___ Bereavement ___ Communion ___ Diana exploration ___ ___ Life review _x__ Prayer ___ Reconciliation ___ Sacrament of Sick _x__ Supportive presence ___ Wedding ___ Other (describe below) Pastoral Comments follow up to patient who was previously seen in PCU and ICU; pt has a trach and communicates by hand motion, nod of head, and writing on tablet; offered pt what would be his preference today - sitting with him, talking, and communicating through tablet; pt shrugs shoulders and nods ok; pt is watching baseball game so talked about baseball; asked pt how he was feeling, how he is handling situation; pt wrote on tablet that his daughter is looking for alternative housing for him and that he is fine with that; pt indicates he is handling things okay and that a prayer would be welcomed
[2023-10-30] MEDS: Hydrocortisone 2.5% Crm 1 APPLIC TOPICAL (18:03)
[2023-10-30 19:00] VITALS: PULSE 120; RESP 22; O2SAT 99
[2023-10-30 20:00] VITALS: PULSE 104; O2SAT 96
[2023-10-30] MEDS: Atorvastatin Calcium 40 MG Tablet PO (21:28)
[2023-10-31] MEDS: Enoxaparin 40 MG/0.4 ML Syringe SC (05:43)
[2023-10-31 06:44] VITALS: PULSE 101; RESP 20; O2SAT 94
[2023-10-31] MEDS: Ipratropium/Albuterol Sulfate 3 ML AMPUL.NEB INHALATION (06:44)
[2023-10-31] MEDS: Acetylcysteine 800 MG/4 ML VIAL.NEB. INHALATION (06:44)
[2023-10-31 09:48] VITALS: BP 113/69; PULSE 94; RESP 20; TEMP 36.6; O2SAT 97
[2023-10-31] MEDS: guaiFENesin 1,200 MG Tablet 1200 MG PO ×2 (09:50→21:54)
[2023-10-31] MEDS: Ensure Plus High Protein 120 ML LIQUID PO ×3 (09:50→17:33)
[2023-10-31] MEDS: Magnesium Chloride 64 MG Delay Rel.Tablet 128 MG PO (09:50)
[2023-10-31] MEDS: Potassium Chloride Oral Tablet 20 MEQ PO (09:50)
[2023-10-31] MEDS: Thiamine Hydrochloride 100 MG Tablet PO (09:51)
[2023-10-31] MEDS: buPROPion 75 MG Tablet PO ×2 (09:51→21:54)
[2023-10-31] MEDS: Menthol/Lanolin/Calamine/Znox 113 GM Tube 1 APPLIC TOPICAL ×2 (09:56→21:52)
[2023-10-31] MEDS: Tuberculin,Purif.prot.deriv. 50 TU/ML Vial 0.1 ML ID (12:29)
[2023-10-31] MEDS: 0.9% Saline Lock 10 ML Syringe IV ×2 (12:31→21:52)
[2023-10-31 14:10] VITALS: O2SAT 96
[2023-10-31] MEDS: Atorvastatin Calcium 40 MG Tablet PO (21:54)
[2023-11-01 02:35] VITALS: O2SAT 93
[2023-11-01] MEDS: Enoxaparin 40 MG/0.4 ML Syringe SC (05:04)
[2023-11-01] MEDS: Ipratropium/Albuterol Sulfate 3 ML AMPUL.NEB INHALATION ×2 (06:50→20:05)
[2023-11-01 06:51] VITALS: PULSE 100; RESP 20; O2SAT 94
[2023-11-01] MEDS: Acetylcysteine 800 MG/4 ML VIAL.NEB. INHALATION ×2 (06:51→20:05)
--- NOTE | 2023-11-01 08:22 | NURSING ---
11/01/23@0815- PT REQUESTING IN LINE SUCTIONING. SUCTIONING PERFORMED BY THIS NURSE PER PROTOCOL. TWO PASSES WERE PERFORMED PER PT REQUEST; FIRST PASS YIELDED A SCANT AMOUNT OF GREEN THICK BLOOD TINGED SPUTUM AND SECOND PASS YIELDED NOTHING. PT WAS NOTED TO HAVE A MODERATE AMOUNT OF THICK GREEN SPUTUM ON GOWN, DOWN HIS CHEST, AND ON HIS TRACH SPLIT DRESSING. DRESSING AND GOWN CHANGED. PT EDUCATED THAT FREQUENT SUCTIONING WILL ONLY PRODUCE MORE SPUTUM AND THAT HE SHOULD TRY COUGHING AND EXPECTORATING THROUGH HIS TRACH OPENING AND THAT HIS TRACH IS SUBJECT TO TRAUMA WITH FREQUENT SUCTION AND THAT HIS SPUTUM IS BLOOD TINGED DUE TO IRRITATION. WILL CONTINUE TO MONITOR.
[2023-11-01] MEDS: Menthol/Lanolin/Calamine/Znox 113 GM Tube 1 APPLIC TOPICAL ×2 (11:05→21:36)
[2023-11-01] MEDS: 0.9% Saline Lock 10 ML Syringe IV ×2 (11:05→21:37)
[2023-11-01] MEDS: Ensure Plus High Protein 120 ML LIQUID PO ×3 (11:05→17:46)
[2023-11-01] MEDS: guaiFENesin 1,200 MG Tablet 1200 MG PO ×2 (11:06→21:40)
[2023-11-01] MEDS: Thiamine Hydrochloride 100 MG Tablet PO (11:07)
[2023-11-01] MEDS: buPROPion 75 MG Tablet PO ×2 (11:08→21:40)
[2023-11-01] MEDS: Potassium Chloride Oral Tablet 20 MEQ PO (11:08)
[2023-11-01] MEDS: Magnesium Chloride 64 MG Delay Rel.Tablet 128 MG PO (11:08)
--- NOTE | 2023-11-01 12:27 | NURSING ---
11/01/23@1225- PT REQUESTING IN LINE SUCTIONING. SUCTIONING PERFORMED BY THIS NURSE PER PROTOCOL. TWO PASSES WERE PERFORMED PER PT REQUEST; FIRST PASS YIELDED A SCANT AMOUNT OF GREEN THICK BLOOD TINGED SPUTUM AND SECOND PASS YIELDED NOTHING. WILL CONTINUE TO MONITOR.
[2023-11-01 14:21] VITALS: BP 105/67; PULSE 85; RESP 20; TEMP 36.4; O2SAT 95
[2023-11-01] MEDS: Hydrocortisone 2.5% Crm 1 APPLIC TOPICAL (15:27)
[2023-11-01 20:05] VITALS: PULSE 94; RESP 20; O2SAT 28
[2023-11-01] MEDS: Atorvastatin Calcium 40 MG Tablet PO (21:39)
[2023-11-02 04:27] VITALS: PULSE 80
[2023-11-02] MEDS: Enoxaparin 40 MG/0.4 ML Syringe SC (05:06)
[2023-11-02] MEDS: Acetylcysteine 800 MG/4 ML VIAL.NEB. INHALATION ×2 (07:30→19:35)
[2023-11-02] MEDS: Ipratropium/Albuterol Sulfate 3 ML AMPUL.NEB INHALATION ×3 (07:30→19:35)
[2023-11-02 07:55] VITALS: PULSE 98; RESP 20; O2SAT 28
--- NOTE | 2023-11-02 07:55 | NURSING ---
Patient suctioned via tracheostomy. Patient tolerated well, returned to normal position with call light. Denies any further needs.
[2023-11-02] MEDS: Potassium Chloride Oral Tablet 20 MEQ PO (08:10)
[2023-11-02] MEDS: guaiFENesin 1,200 MG Tablet 1200 MG PO (08:10)
[2023-11-02] MEDS: Magnesium Chloride 64 MG Delay Rel.Tablet 128 MG PO (08:10)
[2023-11-02] MEDS: Thiamine Hydrochloride 100 MG Tablet PO (08:10)
[2023-11-02] MEDS: buPROPion 75 MG Tablet PO ×2 (08:11→20:50)
[2023-11-02] MEDS: Menthol/Lanolin/Calamine/Znox 113 GM Tube 1 APPLIC TOPICAL ×2 (08:18→20:51)
--- NOTE | 2023-11-02 09:58 | NURSING ---
Patient suctioned via tracheostomy. Patient tolerated well, returned to normal position with call light. Denies any further needs.
--- NOTE | 2023-11-02 10:55 | NURSING ---
Patient suctioned via tracheostomy. Patient tolerated well, returned to normal position with call light. Denies any further needs.
--- NOTE | 2023-11-02 11:55 | NURSING ---
Patient suctioned via tracheostomy. Patient tolerated well, returned to normal position with call light. Denies any further needs.
--- NOTE | 2023-11-02 13:20 | NURSING ---
Patient suctioned via tracheostomy. Patient tolerated well, returned to normal position with call light. Denies any further needs.
[2023-11-02 13:46] VITALS: PULSE 91; RESP 17
--- NOTE | 2023-11-02 14:23 | NURSING ---
Patient suctioned via tracheostomy. Patient tolerated well, returned to normal position with call light. Denies any further needs.
[2023-11-02 15:18] VITALS: BP 110/78; PULSE 80; RESP 14; TEMP 36.6; O2SAT 97
--- NOTE | 2023-11-02 15:32 | NURSING ---
Addendum entered by Rachele Fall 11/03/23 09:23: Call back from [facility], order from Dr. Coleman that patient may shower as long as doesn't get water in or around trach. Original Note: OT wanting to shower patient, wanting Dr. Coleman to approve. This RN called office, they will check with Dr. Coleman tomorrow and call back with orders.
[2023-11-02 17:31] VITALS: O2SAT 99
[2023-11-02 19:35] VITALS: PULSE 92; RESP 18; O2SAT 94
[2023-11-02] MEDS: Atorvastatin Calcium 40 MG Tablet PO (20:50)
[2023-11-03] MEDS: Enoxaparin 40 MG/0.4 ML Syringe SC (06:16)
[2023-11-03] MEDS: Acetylcysteine 800 MG/4 ML VIAL.NEB. INHALATION ×2 (06:43→19:55)
[2023-11-03] MEDS: Ipratropium/Albuterol Sulfate 3 ML AMPUL.NEB INHALATION ×3 (06:43→19:55)
[2023-11-03 06:52] VITALS: PULSE 90; RESP 16; O2SAT 94
[2023-11-03] MEDS: Thiamine Hydrochloride 100 MG Tablet PO (08:18)
[2023-11-03] MEDS: buPROPion 75 MG Tablet PO ×2 (08:19→21:32)
[2023-11-03 08:22] VITALS: BP 108/65; PULSE 93
--- NOTE | 2023-11-03 10:23 | NURSING ---
Addendum entered by Tiffanie Fernandez 11/03/23 11:18: Pt transported by family back to unit for ~10 min, requested suctioning via Yankauer around tracheostomy. moderate amount blood-tinged sputum produced with coughing. Family then transports pt off unit to return to PET scan. Original Note: PT LEFT BY WHEEL CHAIR WITH OXYGEN AT 2L AT 10 AM WITH FAMILY FOR A PET SCAN.
--- NOTE | 2023-11-03 10:29 | NURSING ---
OLD NICOTINE REMOVED. RN WITNESSED WASTE IN DESTROYER.
--- NOTE | 2023-11-03 10:40 | NURSING ---
PER , PT CAN SHOWER BUT WATER CAN NOT GET IN OR AROUND TRACH. RN AWARE.
[2023-11-03 11:38] VITALS: BMI 19.2
[2023-11-03] MEDS: Ensure Plus High Protein 120 ML LIQUID PO ×2 (11:46→17:42)
[2023-11-03] MEDS: Magnesium Chloride 64 MG Delay Rel.Tablet 128 MG PO (11:48)
[2023-11-03] MEDS: Potassium Chloride Oral Tablet 20 MEQ PO (11:49)
[2023-11-03] MEDS: guaiFENesin 1,200 MG Tablet 1200 MG PO ×2 (11:49→21:31)
--- NOTE | 2023-11-03 11:51 | NURSING ---
PT RETURNED TO FLOOR BY WHEEL CHAIR ON 2L OXYGEN WITH FAMILY FROM APPOINTMENT AT 1140. NNO
[2023-11-03 13:30] VITALS: PULSE 95; RESP 18
[2023-11-03 15:58] VITALS: O2SAT 99
[2023-11-03 16:00] VITALS: BP 106/64; PULSE 102; RESP 16; TEMP 36.6; O2SAT 96
--- NOTE | 2023-11-03 19:48 | NURSING ---
THIS NURSE HAS SUCTIONED PT OUT 6 TIMES TODAY WITH THE DIAN. THICK CREAM COLOR SPUTUM, NO BLOOD NOTED AT ANY TIME FOR THIS NURSE. INNER CANNULA ALSO CHANGED. PT DOES NOT WANT DEEP SUCTIONED. PT HAS TOLERATED WELL.
[2023-11-03 19:55] VITALS: PULSE 98; RESP 18; O2SAT 99
[2023-11-03] MEDS: Atorvastatin Calcium 40 MG Tablet PO (21:32)
[2023-11-03] MEDS: Menthol/Lanolin/Calamine/Znox 113 GM Tube 1 APPLIC TOPICAL (21:34)
--- NOTE | 2023-11-04 00:06 | NURSING ---
Resident calls to be suctioned. Cleared most secretions without the assist of suctioning w/ portia. Moderate amount of light yellow, medium consistency mucous noted on split 4x4. Suctioned a small amount of white, medium consistency sputum when resident coughed. In no acute distress and tolerated well. Trach collar reapplied w/ humidified O2. Will continue to monitor.
[2023-11-04] MEDS: Enoxaparin 40 MG/0.4 ML Syringe SC (05:10)
[2023-11-04 07:10] VITALS: O2SAT 89
[2023-11-04 07:45] VITALS: PULSE 91; RESP 18; O2SAT 99
[2023-11-04] MEDS: Acetylcysteine 800 MG/4 ML VIAL.NEB. INHALATION ×2 (07:45→20:00)
[2023-11-04] MEDS: Ipratropium/Albuterol Sulfate 3 ML AMPUL.NEB INHALATION ×3 (07:45→20:04)
[2023-11-04] MEDS: Ensure Plus High Protein 120 ML LIQUID PO ×2 (08:05→20:51)
[2023-11-04] MEDS: Thiamine Hydrochloride 100 MG Tablet PO (08:07)
[2023-11-04] MEDS: Magnesium Chloride 64 MG Delay Rel.Tablet 128 MG PO (08:07)
[2023-11-04] MEDS: Menthol/Lanolin/Calamine/Znox 113 GM Tube 1 APPLIC TOPICAL ×2 (08:07→20:51)
[2023-11-04] MEDS: Potassium Chloride Oral Tablet 20 MEQ PO (08:07)
[2023-11-04] MEDS: buPROPion 75 MG Tablet PO ×2 (08:07→20:51)
--- NOTE | 2023-11-04 08:13 | NURSING ---
REMOVED OLD NICOTINE PATCH,WITNESS BY RN IN DESTROYER. NEW PATCH APPLIED TO LT SHOULDER.
[2023-11-04 11:35] VITALS: PULSE 70; RESP 18; O2SAT 94
--- NOTE | 2023-11-04 14:18 | MDS.RN ---
Information for the MDS was obtained from review of the clinical record, interview of resident, staff, and direct observation of resident?s care.
[2023-11-04 14:34] VITALS: BP 110/74; PULSE 101; RESP 18; TEMP 36.9; O2SAT 95
[2023-11-04 15:00] VITALS: PULSE 81; RESP 19
[2023-11-04] MEDS: Hydrocortisone 2.5% Crm 1 APPLIC TOPICAL (16:24)
[2023-11-04] MEDS: 0.9% Saline Lock 10 ML Syringe IV (16:24)
--- NOTE | 2023-11-04 18:55 | NURSING ---
SUCTIONED PT OUT 8 TIMES TODAY. THICK/CREAM AND WHITE IN COLOR WITH SMALL BLOOD AMOUNT. RN ALSO DID A DEEP SUCTION AND CLEANED INNER CANNULA. PT TOLERATED WELL.
[2023-11-04 20:04] VITALS: PULSE 86; RESP 18; O2SAT 98
[2023-11-04] MEDS: Senna/Docusate Sodium 1 Tablet PO (20:51)
[2023-11-04] MEDS: Atorvastatin Calcium 40 MG Tablet PO (20:51)
--- NOTE | 2023-11-05 01:20 | NURSING ---
pt called out requesting suction. pt able to cough up sputum with use of yankur suction for small amt of thick yellow/white tinged sputum. dressing changed under flange of trach. trach collar reapplied, emptied water from humidification bag on tubing. pt resting in bed, HOB elevated 45 degrees. denies any other needs. did empty urinal.
[2023-11-05] MEDS: Enoxaparin 40 MG/0.4 ML Syringe SC (05:21)
[2023-11-05 08:05] VITALS: PULSE 75; RESP 18; O2SAT 98
[2023-11-05] MEDS: Acetylcysteine 800 MG/4 ML VIAL.NEB. INHALATION ×3 (08:05→19:15)
[2023-11-05] MEDS: Ipratropium/Albuterol Sulfate 3 ML AMPUL.NEB INHALATION ×3 (08:05→19:15)
--- NOTE | 2023-11-05 08:10 | NURSING ---
Family makes staff aware that patient has an appt with Dr. Priest this AM at 0900. Office called to confirm if patient comes down for this appt per family request with no call back. Patient transported down to appt at 0900.
--- NOTE | 2023-11-05 09:45 | CASEMGMT ---
Social Work Patient has Medicaid application pending. Medicaid #[id number] submitted by [employer] and daughter, Georgina LIAM spoke with Georgina who is concerned about patient's potential bill. LIAM informed Georgina that the patient may received a bill for copay days. Georgina inquired about Medicaid coverage. LIAM informed Georgina that if patient is approved for Medicaid she will need to discuss with Medicaid. Georgina informed LIAM that she completed a spend down. Georgina informed LIAM that she has been unable to visit facilities for placement, but plans to visit [facility] today, 11/09/2023. LIAM will continue to follow to support discharge planning. SHAKIR Cross
--- NOTE | 2023-11-05 10:30 | NURSING ---
Patient returns from Dr. Priest's office with no new paperwork. Family reports he has an appt on 11/09/[address] Priest office for a mask fitting for radiation. They also report Dr. Priest went over PET scan and that they reported they were hopeful and that cancer has not appeared to have spread.
[2023-11-05] MEDS: Potassium Chloride Oral Tablet 20 MEQ PO (10:46)
[2023-11-05] MEDS: Thiamine Hydrochloride 100 MG Tablet PO (10:47)
[2023-11-05] MEDS: Magnesium Chloride 64 MG Delay Rel.Tablet 128 MG PO (10:48)
[2023-11-05] MEDS: Senna/Docusate Sodium 1 Tablet PO ×2 (10:49→20:49)
[2023-11-05] MEDS: buPROPion 75 MG Tablet PO ×2 (10:49→20:49)
[2023-11-05] MEDS: Menthol/Lanolin/Calamine/Znox 113 GM Tube 1 APPLIC TOPICAL ×2 (10:57→20:47)
--- NOTE | 2023-11-05 12:17 | NURSING ---
[facility] calls at this time to make us aware that patient is to have MRI on 11/13/23 at 0745. MRI placed on calendar and [facility].
[2023-11-05 13:05] VITALS: PULSE 83; RESP 16
[2023-11-05] MEDS: Ensure Plus High Protein 120 ML LIQUID PO ×3 (13:48→20:48)
[2023-11-05 14:47] VITALS: BP 101/54; PULSE 102; RESP 18; TEMP 36.1; O2SAT 98
[2023-11-05 16:58] VITALS: O2SAT 98
[2023-11-05 19:15] VITALS: PULSE 104; RESP 20; O2SAT 96
[2023-11-05] MEDS: Atorvastatin Calcium 40 MG Tablet PO (20:49)
[2023-11-05 22:00] VITALS: PULSE 98; O2SAT 95
[2023-11-06] MEDS: Ensure Plus High Protein 120 ML LIQUID PO ×4 (05:16→20:27)
[2023-11-06] MEDS: Enoxaparin 40 MG/0.4 ML Syringe SC (05:16)
[2023-11-06 05:57] LABS: Absolute Lymphocyte Count 1.13 X10^3/uL (0.83-4.51); Absolute Neutrophil Count 5.7 X10^3/uL (2.0-7.7); Basophil# 0.04 X10^3/uL; Basophil% 0.5 % (0-1); Eosinophil# 0.23 X10^3/uL; Eosinophils% 2.9 % (0-5); Hematocrit 34.5 % (40-54); Hemoglobin 11.4 g/dL (13.0-16.5); Lymphocyte # 1.13 X10^3/ul (0.83-4.51); Lymphocyte % 14.1 % (19-41); Mean Corpuscular Hgb 30.7 pg (27.0-32.0); Mean Platelet Vol. 9.7 fl (6.2-12.0); Monocyte# 0.92 X10^3/uL; Monocyte% 11.4 % (0-10); NRBC Flagged by Analyzer 0 % (0-5); Neutrophil # 5.66 X10^3/uL (2.7-7.7); Neutrophil % 70.4 % (47-70); Platelet Count 344 K/mm3 (150-450); RBC Distribution Width CV 14.3 % (11.6-14.6); RBC Distribution Width SD 48.4 fl (35.1-43.9); Red Blood Count 3.71 M/mm3 (4.6-6.2)
[2023-11-06 06:54] VITALS: PULSE 101; RESP 20; O2SAT 96
[2023-11-06] MEDS: Ipratropium/Albuterol Sulfate 3 ML AMPUL.NEB INHALATION ×2 (06:54→13:08)
[2023-11-06] MEDS: Acetylcysteine 800 MG/4 ML VIAL.NEB. INHALATION (06:54)
[2023-11-06 08:07] LABS: Anion Gap 10 (5-15); BUN 8 mg/dL (7-18); BUN/Creat Ratio 20.9 RATIO (10-20); Calcium,Total 8.9 mg/dL (8.5-10.1); Chloride 104 mmol/L (98-107); Creatinine, Serum 0.38 mg/dL (0.70-1.30); EST Glomerular Filtration Rate 239 mL/min (>60); Est Glom Filt Rate - Afr Amer 290 mL/min (>60); Estimated Creatinine Clearance 73.71 ml/min; Glucose 94 mg/dL (74-106); Potassium 3.6 mmol/L (3.5-5.1); Sodium Level 138 mmol/L (136-145)
[2023-11-06] MEDS: Magnesium Chloride 64 MG Delay Rel.Tablet 128 MG PO (08:44)
[2023-11-06] MEDS: Menthol/Lanolin/Calamine/Znox 113 GM Tube 1 APPLIC TOPICAL ×2 (08:44→20:26)
[2023-11-06] MEDS: Thiamine Hydrochloride 100 MG Tablet PO (08:44)
[2023-11-06] MEDS: Potassium Chloride Oral Tablet 20 MEQ PO (08:44)
[2023-11-06] MEDS: buPROPion 75 MG Tablet PO ×2 (08:45→20:31)
[2023-11-06] MEDS: Senna/Docusate Sodium 1 Tablet PO ×2 (08:45→20:30)
[2023-11-06 10:00] VITALS: O2SAT 97
[2023-11-06 10:28] VITALS: BP 113/63; PULSE 97; RESP 16; TEMP 36.4; O2SAT 97
--- NOTE | 2023-11-06 12:53 | NURSING ---
Updated that a patient on the unit tested covid positive. Patient does not want family called, said he will update them when they come in today.
[2023-11-06 13:08] VITALS: PULSE 102; RESP 20
[2023-11-06] MEDS: 0.9% Saline Lock 10 ML Syringe IV (20:27)
[2023-11-06] MEDS: Atorvastatin Calcium 40 MG Tablet PO (20:31)
[2023-11-07] MEDS: Ensure Plus High Protein 120 ML LIQUID PO ×4 (05:09→22:24)
[2023-11-07] MEDS: Enoxaparin 40 MG/0.4 ML Syringe SC (05:10)
[2023-11-07 08:02] VITALS: PULSE 100; RESP 19; O2SAT 95
[2023-11-07] MEDS: Acetylcysteine 800 MG/4 ML VIAL.NEB. INHALATION ×2 (08:02→19:05)
[2023-11-07] MEDS: Ipratropium/Albuterol Sulfate 3 ML AMPUL.NEB INHALATION ×3 (08:02→19:05)
[2023-11-07] MEDS: Potassium Chloride Oral Tablet 20 MEQ PO (08:48)
[2023-11-07] MEDS: Magnesium Chloride 64 MG Delay Rel.Tablet 128 MG PO (08:48)
[2023-11-07] MEDS: Thiamine Hydrochloride 100 MG Tablet PO (08:48)
[2023-11-07] MEDS: Senna/Docusate Sodium 1 Tablet PO ×2 (08:49→22:24)
[2023-11-07] MEDS: buPROPion 75 MG Tablet PO ×2 (08:49→22:24)
[2023-11-07] MEDS: Menthol/Lanolin/Calamine/Znox 113 GM Tube 1 APPLIC TOPICAL ×2 (08:49→22:26)
[2023-11-07 10:01] VITALS: BP 105/68; PULSE 100; RESP 18; TEMP 36.3; O2SAT 96
[2023-11-07] MEDS: Hydrocortisone 2.5% Crm 1 APPLIC TOPICAL (12:46)
[2023-11-07 13:50] VITALS: PULSE 92; RESP 18
[2023-11-07 19:09] VITALS: PULSE 90; RESP 18; O2SAT 98
[2023-11-07] MEDS: Atorvastatin Calcium 40 MG Tablet PO (22:24)
[2023-11-08] MEDS: Acetaminophen 325 MG Tablet 650 MG PO (00:34)
[2023-11-08] MEDS: Ensure Plus High Protein 120 ML LIQUID PO ×3 (05:26→21:11)
[2023-11-08] MEDS: Enoxaparin 40 MG/0.4 ML Syringe SC (05:26)
--- NOTE | 2023-11-08 05:33 | NURSING ---
Canister, tubing, and yankauer suction catheter changed thi am.
[2023-11-08 07:56] VITALS: PULSE 84; RESP 18; O2SAT 98
[2023-11-08] MEDS: Ipratropium/Albuterol Sulfate 3 ML AMPUL.NEB INHALATION ×3 (07:56→19:30)
[2023-11-08] MEDS: Acetylcysteine 800 MG/4 ML VIAL.NEB. INHALATION ×2 (07:56→19:30)
[2023-11-08] MEDS: Thiamine Hydrochloride 100 MG Tablet PO (08:56)
[2023-11-08] MEDS: Senna/Docusate Sodium 1 Tablet PO ×2 (08:56→21:12)
[2023-11-08] MEDS: Potassium Chloride Oral Tablet 20 MEQ PO (08:56)
[2023-11-08] MEDS: Magnesium Chloride 64 MG Delay Rel.Tablet 128 MG PO (08:56)
[2023-11-08] MEDS: buPROPion 75 MG Tablet PO ×2 (08:56→21:12)
[2023-11-08] MEDS: Menthol/Lanolin/Calamine/Znox 113 GM Tube 1 APPLIC TOPICAL ×2 (09:00→21:01)
[2023-11-08 09:27] VITALS: BP 110/62; PULSE 98; RESP 18; TEMP 36.3; O2SAT 96
[2023-11-08 13:45] VITALS: PULSE 90; RESP 18; O2SAT 97
--- NOTE | 2023-11-08 18:14 | NURSING ---
@ 1530 and 1700, pt requested trach sx w/ shreya-both times pt able to cough productively for moderate thick white sputum-trach mask placed back over trach
[2023-11-08 19:30] VITALS: RESP 20
[2023-11-08] MEDS: Atorvastatin Calcium 40 MG Tablet PO (21:12)
[2023-11-08] MEDS: 0.9% Saline Lock 10 ML Syringe IV (21:17)
[2023-11-08 22:00] VITALS: PULSE 98; O2SAT 94
[2023-11-09] MEDS: Ensure Plus High Protein 120 ML LIQUID PO ×2 (05:15→20:15)
[2023-11-09] MEDS: Enoxaparin 40 MG/0.4 ML Syringe SC (05:15)
[2023-11-09] MEDS: Ipratropium/Albuterol Sulfate 3 ML AMPUL.NEB INHALATION ×3 (07:27→19:15)
[2023-11-09] MEDS: Acetylcysteine 800 MG/4 ML VIAL.NEB. INHALATION ×2 (07:27→19:15)
[2023-11-09 08:17] VITALS: PULSE 88; RESP 18; O2SAT 98
[2023-11-09] MEDS: Potassium Chloride Oral Tablet 20 MEQ PO (09:48)
[2023-11-09] MEDS: Magnesium Chloride 64 MG Delay Rel.Tablet 128 MG PO (09:48)
[2023-11-09] MEDS: Thiamine Hydrochloride 100 MG Tablet PO (09:48)
[2023-11-09] MEDS: buPROPion 75 MG Tablet PO ×2 (09:48→20:13)
[2023-11-09] MEDS: Hydrocortisone 2.5% Crm 1 APPLIC TOPICAL (09:51)
[2023-11-09 10:00] VITALS: PULSE 89; O2SAT 94
[2023-11-09 12:17] VITALS: O2SAT 98
[2023-11-09 12:50] VITALS: PULSE 71; RESP 18
[2023-11-09] MEDS: Menthol/Lanolin/Calamine/Znox 113 GM Tube 1 APPLIC TOPICAL ×2 (14:55→20:14)
[2023-11-09 15:26] VITALS: BP 107/63; PULSE 101; RESP 16; TEMP 36.9; O2SAT 96
[2023-11-09 19:15] VITALS: PULSE 92; RESP 18; O2SAT 95
[2023-11-09] MEDS: Atorvastatin Calcium 40 MG Tablet PO (20:13)
[2023-11-10] VITALS (7 sets, daily range): BP systolic 94–125; BP diastolic 61–82; PULSE 77–92; RESP 16–20; TEMP 37.3; O2SAT 94–99; BMI 19.2
[2023-11-10] MEDS: Enoxaparin 40 MG/0.4 ML Syringe SC (05:52)
[2023-11-10] MEDS: Ensure Plus High Protein 120 ML LIQUID PO ×4 (05:52→21:25)
[2023-11-10] MEDS: Acetylcysteine 800 MG/4 ML VIAL.NEB. INHALATION (06:49)
[2023-11-10] MEDS: Ipratropium/Albuterol Sulfate 3 ML AMPUL.NEB INHALATION ×3 (06:49→19:12)
[2023-11-10] MEDS: Hydrocortisone 2.5% Crm 1 APPLIC TOPICAL (08:15)
[2023-11-10] MEDS: Magnesium Chloride 64 MG Delay Rel.Tablet 128 MG PO (08:16)
[2023-11-10] MEDS: buPROPion 75 MG Tablet PO ×2 (08:16→21:25)
[2023-11-10] MEDS: Potassium Chloride Oral Tablet 20 MEQ PO (08:16)
[2023-11-10] MEDS: Thiamine Hydrochloride 100 MG Tablet PO (08:16)
[2023-11-10] MEDS: Menthol/Lanolin/Calamine/Znox 113 GM Tube 1 APPLIC TOPICAL ×2 (08:25→21:24)
--- NOTE | 2023-11-10 12:38 | NURSING ---
Updated pt that a patient on the unit tested covid positive today. Patient does not want family called, states he will update them when they come in today.
--- NOTE | 2023-11-10 12:39 | NURSING ---
Pt has requested yankeur suctioning around trach x3 this morning, expectorates thick aldridge sputum. Split drain sponge changed with each episode. Pt used [place] speaking valve for ~30 min this morning.
--- NOTE | 2023-11-10 14:37 | CASEMGMT ---
Addendum entered by Jonah Gonzalez 11/10/23 16:56: LTAC is unable to do chemo or radiation therapy while at facility. LIAM spoke with Rosio at [facility]. [facility] requires RV codes 200-219 and hospitalization days. LIAM spoke with TCU Director, Elaine regarding patient continued stay on TCU. Elaine informed LIAM that the patient can remain on TCU for another month to assist with trach/suction care. Patient will require additional nursing support that requires continued stay. LIAM contacted patient's daughter, Georgina to provide updates. Georgina wants patient to remain on TCU and obtain radiation. Original Note: Social Work LIAM met with patient and daughter, Georgina at bedside to discuss potential placement. Georgina informed LIAM that she has been to multiple facilities: [facility], [facility], [facility], etc to determine placement. Georgina informed SW that most facilities informed her that the patient will require LTAC due to trach care and suction needs. Georgina informed LIAM that she is concerned about patient obtaining radiation at facility. Patient anticipates obtaining daily radiation. Georgina requested that LIAM submit referrals to [facility], [facility], and [facility]. In addition, Georgina requested referrals to be sent to [facility] and [facility]; preference for [facility]. LIAM submitted referral to facility. Georgina informed LIAM that the patient is still pending Medicaid approval. LIAM submitted referral for LTAC and nursing facility. SHAKIR Cross
[2023-11-10] MEDS: Atorvastatin Calcium 40 MG Tablet PO (21:25)
[2023-11-10] MEDS: Senna/Docusate Sodium 1 Tablet PO (21:26)
[2023-11-10] MEDS: 0.9% Saline Lock 10 ML Syringe IV (21:27)
[2023-11-11] MEDS: Ensure Plus High Protein 120 ML LIQUID PO ×4 (05:12→21:08)
[2023-11-11] MEDS: Enoxaparin 40 MG/0.4 ML Syringe SC (05:12)
[2023-11-11 06:15] VITALS: PULSE 85; RESP 20; O2SAT 96
[2023-11-11] MEDS: Ipratropium/Albuterol Sulfate 3 ML AMPUL.NEB INHALATION ×2 (06:15→19:09)
[2023-11-11] MEDS: Potassium Chloride Oral Tablet 20 MEQ PO (08:00)
[2023-11-11] MEDS: Menthol/Lanolin/Calamine/Znox 113 GM Tube 1 APPLIC TOPICAL ×2 (08:00→21:08)
[2023-11-11] MEDS: Thiamine Hydrochloride 100 MG Tablet PO (08:00)
[2023-11-11] MEDS: buPROPion 75 MG Tablet PO ×2 (08:01→21:09)
[2023-11-11] MEDS: Magnesium Chloride 64 MG Delay Rel.Tablet 128 MG PO (08:01)
[2023-11-11] MEDS: Senna/Docusate Sodium 1 Tablet PO ×2 (08:01→21:09)
--- NOTE | 2023-11-11 08:06 | NURSING ---
REMOVED OLD RONNIE PATCH AND APPLIED NEW PATCH TO LEFT DELT. OLD PATCH PLACED IN DESTROYER AND WITNESS BY RN.
--- NOTE | 2023-11-11 09:06 | NURSING ---
PT LEFT BY WHEEL CHAIR WITH FAMILY FOR APPOINTMENT WITH AT 0900.
--- NOTE | 2023-11-11 11:23 | NURSING ---
PT RETURNED TO FLOOR BY WHEEL CHAIR WITH DAUGHTER FROM APPOINTMENT . NO NEW ORDERS,NEW APPOINTMENTS. THIS NURSE PUT NEW APPOINTMENTS IN COMPUTER. RN AWARE
[2023-11-11 13:44] VITALS: BP 130/82; PULSE 104; RESP 18; TEMP 36.7; O2SAT 97
[2023-11-11] MEDS: 0.9% Saline Lock 10 ML Syringe IV ×2 (16:19→21:12)
[2023-11-11 16:28] VITALS: O2SAT 99
--- NOTE | 2023-11-11 18:39 | NURSING ---
PT HAS BEEN SUCTIONED BY THIS NURSE 5 TIMES TODAY AND 1 TIME OF TRACH CLEANING. 1 TIME SPUTUM HAD BLOOD REST WAS THICK CREAM IN COLOR. WASHED NECK AREA OFF AND REPLACED DRESSING UNDER TRACH COLLAR. PT TOLERATED ALL WELL.
[2023-11-11 19:09] VITALS: PULSE 95; RESP 20
[2023-11-11 21:00] VITALS: PULSE 90; O2SAT 96
[2023-11-11] MEDS: Atorvastatin Calcium 40 MG Tablet PO (21:09)
[2023-11-12] MEDS: Ensure Plus High Protein 120 ML LIQUID PO ×4 (05:31→22:04)
[2023-11-12] MEDS: Enoxaparin 40 MG/0.4 ML Syringe SC (05:32)
[2023-11-12 07:25] VITALS: PULSE 95; RESP 18; O2SAT 97
[2023-11-12] MEDS: Ipratropium/Albuterol Sulfate 3 ML AMPUL.NEB INHALATION ×2 (07:25→19:50)
[2023-11-12] MEDS: Thiamine Hydrochloride 100 MG Tablet PO (07:47)
[2023-11-12] MEDS: Potassium Chloride Oral Tablet 20 MEQ PO (07:47)
[2023-11-12] MEDS: Magnesium Chloride 64 MG Delay Rel.Tablet 128 MG PO (07:47)
[2023-11-12] MEDS: Menthol/Lanolin/Calamine/Znox 113 GM Tube 1 APPLIC TOPICAL ×2 (07:47→22:06)
[2023-11-12] MEDS: Senna/Docusate Sodium 1 Tablet PO (07:48)
[2023-11-12] MEDS: buPROPion 75 MG Tablet PO ×2 (07:48→22:05)
--- NOTE | 2023-11-12 07:54 | NURSING ---
OLD RONNIE PATCH REMOVED AND NEW PATCH PLACED ON PT RT SHOULDER. WASTED IN DESTROYER WITH RN.
--- NOTE | 2023-11-12 09:56 | NURSING ---
PT LEFT BY WHEEL CHAIR WITH DAUGHTER FOR APPOINTMENT WITH AT 0959.
[2023-11-12] MEDS: Hydrocortisone 2.5% Crm 1 APPLIC TOPICAL (11:29)
[2023-11-12 11:30] VITALS: PULSE 95; RESP 18; O2SAT 95
--- NOTE | 2023-11-12 11:32 | NURSING ---
PT RETURNED TO FLOOR BY WHEEL CHAIR WITH DAUGHTER AT 1050 FROM APPOINTMENT ,SEE NEW ORDERS.
--- NOTE | 2023-11-12 12:07 | NURSING ---
pt scheduled for Nuclear Stress Test on 11/24, npo after midnight. arrive at 0600
[2023-11-12 13:40] VITALS: BP 113/76; PULSE 98; RESP 17; TEMP 36.8; O2SAT 96
[2023-11-12 16:34] VITALS: O2SAT 99
--- NOTE | 2023-11-12 16:45 | RAD_ITS ---
INDICATION: Back pain/abnormal lung sounds. EXAMINATION/TECHNIQUE: X-RAY - XR Chest 2 Views COMPARISON: October 26, 2023. FINDINGS: LINES/DEVICES: None. LUNGS: Lungs symmetrically hyperexpanded. Mild interstitial coarsening. No consolidation, edema or effusion. No pneumothorax. MEDIASTINUM AND CARDIOVASCULAR STRUCTURES: Cardiac silhouette not enlarged. Mild aortic atherosclerosis. BONES AND SOFT TISSUES: Unremarkable. RAD/Chest PA and Lateral IMPRESSION: Hyperexpansion as can be seen with chronic obstructive pulmonary disease. No radiographic evidence of acute cardiopulmonary disease. Electronically Signed: Anders Trivedi MD at 19:41 EDT ,
[2023-11-12] MEDS: guaiFENesin 10 ML UDC (200MG/10ML) 20 ML PO ×2 (17:02→22:04)
--- NOTE | 2023-11-12 18:07 | NURSING ---
PT HAS HAD TO BE SUCTIONED OUT 11 TIMES TODAY. THICK YELLOW/CREAM IN COLOR. PT COUGHING MORE AND STATED HIS BACK WAS HURTING. LUNG SOUNDS DIMINISHED AND SOUNDS OF RUB. PT ALSO STATED HE DID NOT FEEL VERY WELL. REPORTED TO . NEW ORDERS FOR CHEST X RAY AND ROBITUSSIN. THIS NURSE ALSO CHANGED PT TRACH COLLAR,CANISTER,YANKER AND TUBING AND DATED ALL. CLEANED PT TRACH. PT TOLERATED WELL.
[2023-11-12 19:50] VITALS: PULSE 94; RESP 20
[2023-11-12] MEDS: Carvedilol 3.125 MG TABLET PO (22:04)
[2023-11-12] MEDS: Atorvastatin Calcium 40 MG Tablet PO (22:05)
[2023-11-12] MEDS: Acetaminophen 325 MG Tablet 650 MG PO (22:09)
[2023-11-12] MEDS: 0.9% Saline Lock 10 ML Syringe IV (22:12)
[2023-11-13] MEDS: Ensure Plus High Protein 120 ML LIQUID PO ×4 (05:40→20:33)
[2023-11-13] MEDS: Enoxaparin 40 MG/0.4 ML Syringe SC (05:41)
[2023-11-13] MEDS: guaiFENesin 10 ML UDC (200MG/10ML) 20 ML PO ×4 (05:41→20:45)
[2023-11-13 06:10] LABS: Absolute Lymphocyte Count 1.41 X10^3/uL (0.83-4.51); Absolute Neutrophil Count 3.4 X10^3/uL (2.0-7.7); Basophil# 0.02 X10^3/uL; Basophil% 0.3 % (0-1); Eosinophil# 0.19 X10^3/uL; Eosinophils% 3.2 % (0-5); Hematocrit 35.3 % (40-54); Hemoglobin 11.8 g/dL (13.0-16.5); Lymphocyte # 1.41 X10^3/ul (0.83-4.51); Lymphocyte % 23.7 % (19-41); Mean Corp Hgb Conc 33.4 g/dL (32-36); Mean Corpuscular Hgb 30.8 pg (27.0-32.0); Mean Corpuscular Volume 92.2 fL (80-94); Mean Platelet Vol. 9.3 fl (6.2-12.0); Monocyte# 0.88 X10^3/uL; Monocyte% 14.8 % (0-10); NRBC Flagged by Analyzer 0 % (0-5); Neutrophil # 3.41 X10^3/uL (2.7-7.7); Neutrophil % 57.2 % (47-70); Platelet Count 344 K/mm3 (150-450); RBC Distribution Width SD 47.7 fl (35.1-43.9); Red Blood Count 3.83 M/mm3 (4.6-6.2)
[2023-11-13 07:02] LABS: Anion Gap 6 (5-15); BUN 7 mg/dL (7-18); BUN/Creat Ratio 19.2 RATIO (10-20); Chloride 103 mmol/L (98-107); Creatinine, Serum 0.36 mg/dL (0.70-1.30); EST Glomerular Filtration Rate 253 mL/min (>60); Est Glom Filt Rate - Afr Amer 306 mL/min (>60); Estimated Creatinine Clearance 73.71 ml/min; Glucose 100 mg/dL (74-106); Potassium 3.7 mmol/L (3.5-5.1); Sodium Level 136 mmol/L (136-145); Thyroid Stim Hormone (TSH) 2.57 uIU/mL (0.358-3.74)
[2023-11-13] MEDS: Aspirin E.C. 81 MG Tablet PO (09:34)
[2023-11-13] MEDS: Potassium Chloride Oral Tablet 20 MEQ PO (09:34)
[2023-11-13] MEDS: Senna/Docusate Sodium 1 Tablet PO (09:35)
[2023-11-13] MEDS: Thiamine Hydrochloride 100 MG Tablet PO (09:35)
[2023-11-13] MEDS: Lisinopril 2.5 MG Tablet PO (09:35)
[2023-11-13] MEDS: buPROPion 75 MG Tablet PO ×2 (09:35→20:35)
[2023-11-13] MEDS: Magnesium Chloride 64 MG Delay Rel.Tablet 128 MG PO (09:35)
[2023-11-13] MEDS: Menthol/Lanolin/Calamine/Znox 113 GM Tube 1 APPLIC TOPICAL ×2 (09:35→20:33)
[2023-11-13] MEDS: Carvedilol 3.125 MG TABLET PO ×2 (09:35→20:35)
[2023-11-13 10:26] VITALS: PULSE 91; RESP 18
[2023-11-13] MEDS: Ipratropium/Albuterol Sulfate 3 ML AMPUL.NEB INHALATION ×3 (10:29→19:52)
[2023-11-13 14:57] VITALS: BP 113/75; PULSE 87; RESP 18; TEMP 36.5; O2SAT 97
[2023-11-13 15:18] VITALS: O2SAT 97
[2023-11-13 15:55] VITALS: PULSE 84; RESP 18; O2SAT 94
[2023-11-13 19:52] VITALS: PULSE 86; RESP 20
[2023-11-13] MEDS: Atorvastatin Calcium 40 MG Tablet PO (20:34)
[2023-11-13] MEDS: 0.9% Saline Lock 10 ML Syringe IV (20:47)
[2023-11-14] VITALS (7 sets, daily range): BP systolic 99–102; BP diastolic 64–68; PULSE 81–94; RESP 16–19; TEMP 36.6; O2SAT 94–97
[2023-11-14] MEDS: Enoxaparin 40 MG/0.4 ML Syringe SC (06:33)
[2023-11-14] MEDS: Ensure Plus High Protein 120 ML LIQUID PO ×4 (06:33→21:15)
[2023-11-14] MEDS: guaiFENesin 10 ML UDC (200MG/10ML) 20 ML PO ×4 (06:36→21:16)
[2023-11-14] MEDS: Ipratropium/Albuterol Sulfate 3 ML AMPUL.NEB INHALATION ×2 (09:15→19:50)
[2023-11-14] MEDS: Magnesium Chloride 64 MG Delay Rel.Tablet 128 MG PO (09:50)
[2023-11-14] MEDS: buPROPion 75 MG Tablet PO ×2 (09:50→21:16)
[2023-11-14] MEDS: Menthol/Lanolin/Calamine/Znox 113 GM Tube 1 APPLIC TOPICAL ×2 (09:51→21:15)
[2023-11-14] MEDS: Potassium Chloride Oral Tablet 20 MEQ PO (09:51)
[2023-11-14] MEDS: Carvedilol 3.125 MG TABLET PO ×2 (09:51→21:16)
[2023-11-14] MEDS: Lisinopril 2.5 MG Tablet PO (09:51)
[2023-11-14] MEDS: Thiamine Hydrochloride 100 MG Tablet PO (09:51)
[2023-11-14] MEDS: Aspirin E.C. 81 MG Tablet PO (09:51)
[2023-11-14] MEDS: Senna/Docusate Sodium 1 Tablet PO ×2 (09:51→21:16)
[2023-11-14] MEDS: 0.9% Saline Lock 10 ML Syringe IV (09:53)
--- NOTE | 2023-11-14 15:04 | NURSING ---
inner cannula replaced and trach care completed, new split gauze under flange. pt able to expectorate thick creamy sputum then suctioned w/ankita by nursing.
[2023-11-14] MEDS: Atorvastatin Calcium 40 MG Tablet PO (21:16)
[2023-11-15] VITALS (7 sets, daily range): BP systolic 103–106; BP diastolic 61–67; PULSE 82–88; RESP 16–18; O2SAT 95–98
--- NOTE | 2023-11-15 04:10 | NURSING ---
Inner cannula cleansed with sterile technique per policy, patient tolerated well. Patient requests frequent Yankauer suctioning by activating call light and expectorating mucus requiring frequent trach care. SPo2 @98%, O2 per order with cool humidification. No resp distress observed or reported.Call light in reach. Able to express needs.
[2023-11-15] MEDS: Ensure Plus High Protein 120 ML LIQUID PO ×2 (05:27→21:45)
[2023-11-15] MEDS: Enoxaparin 40 MG/0.4 ML Syringe SC (05:27)
[2023-11-15] MEDS: guaiFENesin 10 ML UDC (200MG/10ML) 20 ML PO ×4 (05:27→21:46)
[2023-11-15] MEDS: Ipratropium/Albuterol Sulfate 3 ML AMPUL.NEB INHALATION ×3 (06:50→18:55)
[2023-11-15] MEDS: Aspirin E.C. 81 MG Tablet PO (08:46)
[2023-11-15] MEDS: Potassium Chloride Oral Tablet 20 MEQ PO (08:46)
[2023-11-15] MEDS: Thiamine Hydrochloride 100 MG Tablet PO (08:47)
[2023-11-15] MEDS: Magnesium Chloride 64 MG Delay Rel.Tablet 128 MG PO (08:47)
[2023-11-15] MEDS: Menthol/Lanolin/Calamine/Znox 113 GM Tube 1 APPLIC TOPICAL (08:47)
[2023-11-15] MEDS: Senna/Docusate Sodium 1 Tablet PO ×2 (08:48→21:45)
[2023-11-15] MEDS: buPROPion 75 MG Tablet PO ×2 (08:50→21:46)
[2023-11-15] MEDS: Lisinopril 2.5 MG Tablet PO (08:58)
[2023-11-15] MEDS: Carvedilol 3.125 MG TABLET PO ×2 (08:58→21:45)
--- NOTE | 2023-11-15 10:20 | NURSING ---
REMOVED OLD NICOTINE PATCH AND REPLACED WITH NEW PATCH TO LT DELT. WASTED IN DESTROYER,RN WITNESSED.
--- NOTE | 2023-11-15 19:00 | NURSING ---
SUCTIONED PT 6 TIMES TODAY AND CHANGED DRESSING UNDER TRACH 4 TIMES. SPUTUM THICK,CREAMY/WHITE. TRIED TO ENCOURAGE PT TO WIPE AWAY SPUTUM IF IT GOT ON HIS CHEST AND TO CATCH SPUTUM IN WASH CLOTH. ALSO LEFT SUCTION WITH PT TO TRY AND SUCTION HIS SELF. PT DID NOT EVEN TRY, JUST CALLED OUT AND WHEN THIS NURSE WENT BACK WOULD POINT FOR SUCTION OR SPUTUM ON CHEST. ASKED PT IF HE TRIED ANY THING PT SHOCK HIS HEAD AND MOTIONED HANDS NO!
--- NOTE | 2023-11-15 21:39 | NURSING ---
RT contacted, states will change trach O2 tubing this HS
[2023-11-15] MEDS: Atorvastatin Calcium 40 MG Tablet PO (21:45)
[2023-11-16] VITALS (9 sets, daily range): BP systolic 90–130; BP diastolic 63–73; PULSE 79–87; RESP 16–20; TEMP 36.5; O2SAT 95–99
[2023-11-16] MEDS: Ensure Plus High Protein 120 ML LIQUID PO ×3 (05:40→21:08)
[2023-11-16] MEDS: guaiFENesin 10 ML UDC (200MG/10ML) 20 ML PO ×4 (05:40→21:14)
[2023-11-16] MEDS: Enoxaparin 40 MG/0.4 ML Syringe SC (05:41)
[2023-11-16] MEDS: Ipratropium/Albuterol Sulfate 3 ML AMPUL.NEB INHALATION ×3 (06:47→19:00)
[2023-11-16] MEDS: Potassium Chloride Oral Tablet 20 MEQ PO (07:54)
[2023-11-16] MEDS: Aspirin E.C. 81 MG Tablet PO (07:54)
[2023-11-16] MEDS: Thiamine Hydrochloride 100 MG Tablet PO (07:55)
[2023-11-16] MEDS: Menthol/Lanolin/Calamine/Znox 113 GM Tube 1 APPLIC TOPICAL ×2 (07:55→21:08)
[2023-11-16] MEDS: Magnesium Chloride 64 MG Delay Rel.Tablet 128 MG PO (07:55)
[2023-11-16] MEDS: buPROPion 75 MG Tablet PO ×2 (07:57→21:08)
[2023-11-16] MEDS: Senna/Docusate Sodium 1 Tablet PO ×2 (07:57→21:09)
--- NOTE | 2023-11-16 08:54 | NURSING ---
Addendum entered by Everette Vogt 11/16/23 09:15: PT RETURNED AT 9AM AND DAUGHTER STATED HIS APPOINTMENT WASNT TILL 1000AM. Original Note: PT LEFT FLOOR BY WHEEL CHAIR WITH FAMILY FOR APPOINTMENT AT 0855 WITH .
--- NOTE | 2023-11-16 10:07 | NURSING ---
PT LEFT FLOOR BY WHEEL CHAIR WITH O2 AT 2L WITH DAUGHTER TO APPOINTMENT AT 1005.
--- NOTE | 2023-11-16 10:41 | NURSING ---
OLD NICOTINE PATCH REMOVED AND WASTED WITH RN IN DESTROYED. NEW PATCH PLACED ON RT DELT.
[2023-11-16] MEDS: Lisinopril 2.5 MG Tablet PO (11:25)
[2023-11-16] MEDS: Carvedilol 3.125 MG TABLET PO ×2 (11:25→21:09)
--- NOTE | 2023-11-16 11:29 | NURSING ---
PT RETURNED TO FLOOR BY WHEEL CHAIR WITH DAUGHTER AT 1115. NEW ORDERS TO HAVE A FEEDING TUBE PLACED AND PORT.
--- NOTE | 2023-11-16 11:37 | NURSING ---
PT DAUGHTER CALLED THIS NURSE TO ROOM AND STATED MY DAD WAS SCRATCHING THE BACK OF HIS HEAD AND NOW ITS BLEEDING. THIS NURSE SEEN POST RT SIDE HEAD HAD 3 AREAS BLEEDING. CLEANED AREAS,LEFT OPEN TO AIR. STATED TO PT NOT TO SCRATCH THAT AREA. RN AWARE.
--- NOTE | 2023-11-16 16:46 | NURSING ---
CALLED OFFICE TO SEE WHAT DATES HE WAS PLANNING FOR THE PEG TUBE AND PORT PLACEMENT. OFFICE STATED THEY WOULD FIND OUT AND LET US KNOW.
--- NOTE | 2023-11-16 19:10 | NURSING ---
SUCTIONED PT OUT 5 TIMES TODAY WITH THE DIAN AND CHANGED DRESSING UNDER TRACH AREA ALSO EACH TIME. SPUTUM THICK,WHITE/CREAM IN COLOR. PT TOLERATED WELL.
[2023-11-16] MEDS: Atorvastatin Calcium 40 MG Tablet PO (21:09)
--- NOTE | 2023-11-17 05:22 | NURSING ---
Secure backline message received from Dr. Barkley that port placement is scheduled for 11/18. Written order at nurses station to hold Lovenox 24 hours prior to the procedure.
[2023-11-17] MEDS: guaiFENesin 10 ML UDC (200MG/10ML) 20 ML PO ×4 (06:21→22:23)
[2023-11-17] MEDS: Ensure Plus High Protein 120 ML LIQUID PO ×4 (06:21→22:18)
[2023-11-17] MEDS: Enoxaparin 40 MG/0.4 ML Syringe SC (06:21)
[2023-11-17] MEDS: Ipratropium/Albuterol Sulfate 3 ML AMPUL.NEB INHALATION ×3 (07:23→20:04)
[2023-11-17 07:39] VITALS: O2SAT 95
[2023-11-17 08:29] VITALS: PULSE 85; RESP 16
[2023-11-17 09:40] VITALS: BMI 19.5
[2023-11-17] MEDS: Aspirin E.C. 81 MG Tablet PO (09:44)
[2023-11-17] MEDS: Menthol/Lanolin/Calamine/Znox 113 GM Tube 1 APPLIC TOPICAL (09:44)
[2023-11-17] MEDS: Potassium Chloride Oral Tablet 20 MEQ PO (09:44)
[2023-11-17] MEDS: Thiamine Hydrochloride 100 MG Tablet PO (09:44)
[2023-11-17] MEDS: Lisinopril 2.5 MG Tablet PO (09:45)
[2023-11-17] MEDS: Senna/Docusate Sodium 1 Tablet PO ×2 (09:45→22:19)
[2023-11-17] MEDS: buPROPion 75 MG Tablet PO ×2 (09:45→22:19)
[2023-11-17] MEDS: Magnesium Chloride 64 MG Delay Rel.Tablet 128 MG PO (09:45)
[2023-11-17] MEDS: Carvedilol 3.125 MG TABLET PO ×2 (09:45→22:19)
[2023-11-17 11:13] VITALS: BP 113/68; PULSE 77; RESP 18; TEMP 36.5; O2SAT 98
[2023-11-17 13:37] VITALS: PULSE 85; RESP 18
[2023-11-17 16:31] VITALS: O2SAT 95
--- NOTE | 2023-11-17 16:55 | CASEMGMT ---
Social Work Phone call placed to pt daughter Georgina to discuss stay in TCU and discharge plan. LIAM informed Georgina that in TCU, Medicare SNF benefit is day 1-20 covered 100%, starting on day 21 pt has a copay of $204/day. Today is day 30 of pt's stay. Georgina confirmed pt does not have a secondary insurance, but that pt has applied for Medicaid however Georgina cannot collect financial information as she is not pt's financial POA. LIAM informed Georgina that TCU does not accept Medicaid payment and pt will be billed for copay amount. Georgina inquiring about other options that would accept Medicaid and about obtaining financial POA to continue Medicaid process. Pt to get peg tube and port placement on 11/18. LIAM will continue to follow for support and dc planning. MAHENDRA Champion
[2023-11-17 19:50] VITALS: PULSE 88; RESP 18; O2SAT 95
[2023-11-17] MEDS: Atorvastatin Calcium 40 MG Tablet PO (22:19)
[2023-11-18] VITALS (7 sets, daily range): BP systolic 105–112; BP diastolic 72; PULSE 81–92; RESP 18; TEMP 36.8; O2SAT 96–97
[2023-11-18] MEDS: guaiFENesin 10 ML UDC (200MG/10ML) 20 ML PO ×4 (05:27→22:21)
[2023-11-18] MEDS: Ensure Plus High Protein 120 ML LIQUID PO ×4 (05:28→21:51)
[2023-11-18] MEDS: 0.9% Saline Lock 10 ML Syringe IV ×2 (05:34→22:00)
--- NOTE | 2023-11-18 10:10 | NURSING ---
Patient to be NPO at midnight for port/PEG placement tomorrow 6.24. Ok to have clear liquids until 4 hours prior to surgery. Procedures planned for 1100 at this time. Ok to take the following meds the morning of surgery: Tylenol, breathing treatments, bupropion, coreg, lisinopril, and zofran. Hold other meds until after surgery.
[2023-11-18] MEDS: Menthol/Lanolin/Calamine/Znox 113 GM Tube 1 APPLIC TOPICAL ×2 (10:40→21:51)
[2023-11-18] MEDS: Potassium Chloride Oral Tablet 20 MEQ PO (10:41)
[2023-11-18] MEDS: Thiamine Hydrochloride 100 MG Tablet PO (10:41)
[2023-11-18] MEDS: Lisinopril 2.5 MG Tablet PO (10:41)
[2023-11-18] MEDS: Magnesium Chloride 64 MG Delay Rel.Tablet 128 MG PO (10:41)
[2023-11-18] MEDS: Carvedilol 3.125 MG TABLET PO ×2 (10:41→21:53)
[2023-11-18] MEDS: Senna/Docusate Sodium 1 Tablet PO ×2 (10:41→21:54)
[2023-11-18] MEDS: buPROPion 75 MG Tablet PO ×2 (10:42→21:54)
[2023-11-18] MEDS: Aspirin E.C. 81 MG Tablet PO (10:42)
--- NOTE | 2023-11-18 12:50 | NURSING ---
Trach care provided. Split gauze sponge changed and Yankeur suction around trach x2 this morning.
[2023-11-18] MEDS: Ipratropium/Albuterol Sulfate 3 ML AMPUL.NEB INHALATION ×2 (13:02→20:05)
[2023-11-18] MEDS: Atorvastatin Calcium 40 MG Tablet PO (21:53)
[2023-11-19 05:00] VITALS: PULSE 88; O2SAT 94
[2023-11-19 07:23] VITALS: PULSE 86; RESP 18; O2SAT 95
--- NOTE | 2023-11-19 07:23 | CPS ---
Changed H2O for inhalation.
[2023-11-19] MEDS: Carvedilol 3.125 MG TABLET PO (08:17)
[2023-11-19] MEDS: buPROPion 75 MG Tablet PO (08:18)
[2023-11-19] MEDS: Lisinopril 2.5 MG Tablet PO (08:18)
[2023-11-19 09:00] VITALS: BP 101/59; PULSE 76
--- NOTE | 2023-11-19 09:19 | NURSING ---
SUCTIONED PT WITH DIAN AND CH[facility]ED DRESSING [facility]. PT TOLERATED WELL. PT LEFT BY BED WITH FAMILY FOR PROCEDURE TODAY FOR PORT AND PEG TUBE PLACEMENT AT 0910.
--- NOTE | 2023-11-19 09:22 | NURSING ---
Addendum entered by Tiffanie Fernandez 11/19/23 13:35: OR staff returns pt to unit @0675. Original Note: Patient transported off the unit for procedure. Suctioned with yanker per patient request prior to transport.
[2023-11-19 13:44] VITALS: PULSE 84; RESP 18
[2023-11-19] MEDS: Ipratropium/Albuterol Sulfate 3 ML AMPUL.NEB INHALATION ×2 (13:44→19:13)
[2023-11-19 14:17] VITALS: BP 101/68; PULSE 88; RESP 20; TEMP 36.2; O2SAT 93
[2023-11-19] MEDS: HYDROmorphone 1 MG/ML Syringe 0.5 MG IV (15:12)
--- NOTE | 2023-11-19 15:24 | NURSING ---
ORDERS FROM , PT IS TO BE NPO TILL 12 NOON ON 11/20/23 INCLUDING MEDS. LR AT 100 ML/HR, 0.5 MG DILAUDID IV PRN q4HRS, LOVENOX ON HOLD FOR 24 HRS. ALL DUE TO PEG PLACEMENT. RN AWARE
[2023-11-19] MEDS: 0.9% Saline Lock 10 ML Syringe IV ×2 (15:58→21:54)
[2023-11-19] MEDS: Lactated Ringers 1,000 ML 100 ML IV (16:01)
--- NOTE | 2023-11-19 16:59 | CASEMGMT ---
Soical Work LIAM spoke with pt dgt who is agreeable to referral to [facility] which was previously mentioned as pt first choice of providers. LIAM called Rebeca at [facility] and provided verbal information and sent referral in [facility]. [facility] reviewing case for possible admission. Pt is scheduled for Chemo/radiation treatment on Mondays at 7:45 at [facility] and radiation only Thursday-Thursday at [facility]. Pt dgt states she nor other family can provide transport, but she will check with her employer tomorrow to see if there is a way she can have time off to do this. [facility] updated. LIAM spoke with Georgina regarding patient completing financial POA. Georgina is working on this at this time. LIAM will continue to follow for support and dc planning. MAHENDRA Champion
[2023-11-19 19:13] VITALS: PULSE 117; RESP 20; O2SAT 93
[2023-11-19] MEDS: Menthol/Lanolin/Calamine/Znox 113 GM Tube 1 APPLIC TOPICAL (20:01)
[2023-11-20] MEDS: Lactated Ringers 1,000 ML 100 ML IV (02:39)
[2023-11-20 06:06] LABS: Absolute Lymphocyte Count 1.65 X10^3/uL (0.83-4.51); Basophil# 0.02 X10^3/uL; Basophil% 0.2 % (0-1); Eosinophil# 0.12 X10^3/uL; Eosinophils% 1.2 % (0-5); Hemoglobin 11.4 g/dL (13.0-16.5); Lymphocyte # 1.65 X10^3/ul (0.83-4.51); Lymphocyte % 16.9 % (19-41); Mean Corp Hgb Conc 32.6 g/dL (32-36); Mean Corpuscular Hgb 30.1 pg (27.0-32.0); Mean Corpuscular Volume 92.3 fL (80-94); Mean Platelet Vol. 9.6 fl (6.2-12.0); Monocyte# 0.89 X10^3/uL; Monocyte% 9.1 % (0-10); NRBC Flagged by Analyzer 0 % (0-5); Neutrophil # 7.02 X10^3/uL (2.7-7.7); Neutrophil % 71.9 % (47-70); Platelet Count 331 K/mm3 (150-450); RBC Distribution Width CV 14.3 % (11.6-14.6); RBC Distribution Width SD 48.4 fl (35.1-43.9); Red Blood Count 3.79 M/mm3 (4.6-6.2); White Blood Count 9.8 K/mm3 (4.4-11.0)
[2023-11-20 06:22] LABS: Anion Gap 5 (5-15); BUN 10 mg/dL (7-18); BUN/Creat Ratio 20.4 RATIO (10-20); Calcium,Total 8.1 mg/dL (8.5-10.1); Chloride 100 mmol/L (98-107); Creatinine, Serum 0.49 mg/dL (0.70-1.30); EST Glomerular Filtration Rate 180 mL/min (>60); Est Glom Filt Rate - Afr Amer 217 mL/min (>60); Glucose 97 mg/dL (74-106); Potassium 3.8 mmol/L (3.5-5.1); Sodium Level 133 mmol/L (136-145)
--- NOTE | 2023-11-20 06:55 | PN.SURG_ITS ---
Subjective Subjective Patient seen and examined during AM rounds. He is found resting in bed. He expresses some discomfort from his PEG tube which she seems to rated at a 3 or 4 out of 10. He denies discomfort from his port site. Objective Data Objective Data Vital Signs: Vital Signs Temp Pulse Resp BP Pulse Ox O2 Del Method O2 Flow Rate 97.2 F L 117 H 20 H 101/68 93 Trach Collar 6 11/19/23 14:17 11/19/23 19:13 11/19/23 19:13 11/19/23 14:17 11/19/23 19:13 11/19/23 19:13 11/19/23 19:13 FiO2 30 11/19/23 19:13 Oxygen Flow Rate (L/min) 6 Oxygen Delivery Method Trach Collar Weight: 132 lb 12.8 oz Body Mass Index (BMI) 19.5 Intake & Output: Intake and Output for Last 24 Hours 11/18/23 11/19/23 11/20/23 23:59 23:59 23:59 Intake Total 360 / 360 1000 / 1000 Balance 360 / 360 1000 / 1000 Lab / Micro Data 11/20/23 05:20 11/20/23 05:20 Labs: Laboratory Results - last 24 hr 11/20/23 05:20: WBC 9.8, RBC 3.79 L, Hgb 11.4 L, Hct 35.0 L, MCV 92.3, MCH 30.1, MCHC 32.6, RDW Std Deviation 48.4 H, RDW Coeff of Elidia 14.3, Plt Count 331, MPV 9.6, Immature Gran % (Auto) 0.700, Neut % (Auto) 71.9 H, Lymph % (Auto) 16.9 L, [place] % (Auto) 9.1, Eos % (Auto) 1.2, Baso % (Auto) 0.2, Absolute Neuts (auto) 7.0, Absolute Lymphs (auto) 1.65, Nucleated RBC % 0, Sodium 133 L, Potassium 3.8, Chloride 100, Carbon Dioxide 28.0, Anion Gap 5, BUN 10, Creatinine 0.49 L, Estim Creat Clear Calc 75.30, Est GFR (MDRD) Af Amer 217, Est GFR (MDRD) Non-Af 180, BUN/Creatinine Ratio 20.4 H, Glucose 97, Calcium 8.1 L Micro: Microbiology 11/13/23 05:55 Nasal Secretion SARS-CoV-2 Antigen (Rapid) - Final 11/06/23 11:57 Nasal Secretion SARS-CoV-2 Antigen (Rapid) - Final Physical Exam Const oriented x3 and no apparent distress Chest Chest Narrative: Right upper chest port appears appropriate without tenderness or drainage. Remains sealed and Dermabond Resp normal respiratory effort GI GI Narrative: Abdominal binder in place, PEG tube in left upper quadrant appears appropriate under operative dressing where it is coiled. Bumper appears in stable position. Patient's abdomen is soft and mildly tender about the tube exit site. Assessment & Plan Assessment/Plan (1) Port-A-Cath in place: PLAN: Postop day 1 from uneventful right Port-A-Cath placement. This device is ready for use when needed. Patient is okay to shower and let the water hit this area given the presence of Dermabond. (2) PEG (percutaneous endoscopic gastrostomy) status: PLAN: Postop day 1 from uneventful PEG tube placement. He has remained n.p.o. since placement and was transitioned to IV fluids. The tube remains in stable position and his exam is reassuring. At this time patient is cleared to resume a diet and recommend beginning at a clear liquid diet while advancing as tolerated. Patient may have abdominal binder off but recommend keeping in place during nighttime decreased awareness where he may be at risk for pulling on the tube. Tube may be used for feeds or medication effective immediately but if patient is not requiring tube it present moment would ask for regular daily flushing with tap water. Suture that holds bumper in place should not be removed before 6 weeks from date of procedure. Please notify Dr. Barklye of any concerns or questions immediately. Carlito Barkley MD General Surgery Endocrine Surgery Pager: [facility] [address] [place] [address], [facility], [address] [place] [address] Office: [phone] Charges/Coding Visit Charges Inpatient E&M: 47030 [facility] Subs L2
[2023-11-20 07:20] VITALS: PULSE 91; RESP 19
[2023-11-20] MEDS: Ipratropium/Albuterol Sulfate 3 ML AMPUL.NEB INHALATION ×3 (08:30→18:57)
[2023-11-20 08:32] VITALS: O2SAT 94
[2023-11-20] MEDS: Menthol/Lanolin/Calamine/Znox 113 GM Tube 1 APPLIC TOPICAL ×2 (09:03→22:15)
[2023-11-20] MEDS: buPROPion 75 MG Tablet PO ×2 (09:03→22:18)
[2023-11-20] MEDS: Lisinopril 2.5 MG Tablet PO (09:03)
[2023-11-20] MEDS: Carvedilol 3.125 MG TABLET PO ×2 (09:03→22:17)
[2023-11-20] MEDS: Thiamine Hydrochloride 100 MG Tablet PO (09:03)
[2023-11-20] MEDS: Senna/Docusate Sodium 1 Tablet PO ×2 (09:03→22:17)
[2023-11-20] MEDS: Magnesium Chloride 64 MG Delay Rel.Tablet 128 MG PO (09:03)
[2023-11-20] MEDS: Aspirin E.C. 81 MG Tablet PO (09:03)
[2023-11-20] MEDS: Potassium Chloride Oral Tablet 20 MEQ PO (09:03)
[2023-11-20] MEDS: HYDROmorphone 1 MG/ML Syringe 0.5 MG IV ×2 (09:25→14:31)
[2023-11-20] MEDS: 0.9% Saline Lock 10 ML Syringe IV (09:26)
[2023-11-20 09:58] VITALS: BP 100/54; PULSE 89; RESP 20; TEMP 36.4; O2SAT 94
[2023-11-20] MEDS: Hydrocortisone 2.5% Crm 1 APPLIC TOPICAL (10:26)
[2023-11-20] MEDS: Ensure Plus High Protein 120 ML LIQUID PO ×3 (12:21→22:14)
[2023-11-20] MEDS: guaiFENesin 10 ML UDC (200MG/10ML) 20 ML PO ×3 (12:23→22:16)
[2023-11-20 14:00] VITALS: PULSE 81; RESP 17
--- NOTE | 2023-11-20 14:43 | CASEMGMT ---
Social Work LIAM spoke with pt's dgt who states she can provide some, not all, transportation to radiation. LIAM notified Edilberto of this and requested determination of acceptance. Determination still not made as Edilberto has financial questions for dgt. LIAM provided dgts name and number and encouraged Edilberto to reach out to dgt. Phone call to dgt and updated on above. MAHENDRA Champion
[2023-11-20 18:57] VITALS: PULSE 88; RESP 20
[2023-11-20 22:00] VITALS: BP 105/70; PULSE 85
--- NOTE | 2023-11-20 22:15 | NURSING ---
PEG tube flushed w/ approximately 100 ml of tap water. Tube flushes w/ ease. Split 4x4 changed. Resident winced several times when PEG tube site care performed. Declines discomfort w/ water flush. Scant amount of dried, bloody drainage noted to PEG insertion site. Abdominal binder loosely applied. Will continue to monitor.
[2023-11-20] MEDS: Atorvastatin Calcium 40 MG Tablet PO (22:18)
--- NOTE | 2023-11-21 04:25 | NURSING ---
Spoke w/ resident re: advancing diet. He is agreeable to advance to a soft diet starting today. Refused to fill out menu for today.
[2023-11-21] MEDS: guaiFENesin 10 ML UDC (200MG/10ML) 20 ML PO ×4 (06:44→22:24)
[2023-11-21] MEDS: Enoxaparin 40 MG/0.4 ML Syringe SC (06:44)
[2023-11-21] MEDS: Ensure Plus High Protein 120 ML LIQUID PO ×4 (06:44→22:25)
[2023-11-21 07:05] VITALS: PULSE 89; RESP 22; O2SAT 94
[2023-11-21] MEDS: Ipratropium/Albuterol Sulfate 3 ML AMPUL.NEB INHALATION ×2 (07:05→18:42)
[2023-11-21] MEDS: Aspirin E.C. 81 MG Tablet PO (08:36)
[2023-11-21] MEDS: Potassium Chloride Oral Tablet 20 MEQ PO (08:36)
[2023-11-21] MEDS: Thiamine Hydrochloride 100 MG Tablet PO (08:37)
[2023-11-21] MEDS: Hydrocortisone 2.5% Crm 1 APPLIC TOPICAL (08:43)
[2023-11-21] MEDS: Magnesium Chloride 64 MG Delay Rel.Tablet 128 MG PO (10:56)
[2023-11-21] MEDS: Carvedilol 3.125 MG TABLET PO ×2 (10:56→22:28)
[2023-11-21] MEDS: Menthol/Lanolin/Calamine/Znox 113 GM Tube 1 APPLIC TOPICAL ×2 (10:57→22:24)
[2023-11-21] MEDS: Senna/Docusate Sodium 1 Tablet PO ×2 (10:57→22:25)
[2023-11-21] MEDS: Lisinopril 2.5 MG Tablet PO (10:58)
[2023-11-21] MEDS: buPROPion 75 MG Tablet PO ×2 (10:58→22:25)
[2023-11-21 13:37] VITALS: BP 104/73; PULSE 87; RESP 18; TEMP 36.6; O2SAT 97
[2023-11-21] MEDS: HYDROmorphone 1 MG/ML Syringe 0.5 MG IV (15:27)
[2023-11-21 18:43] VITALS: PULSE 86; RESP 20
[2023-11-21] MEDS: Atorvastatin Calcium 40 MG Tablet PO (22:24)
[2023-11-21 22:30] VITALS: O2SAT 95
[2023-11-22] MEDS: Enoxaparin 40 MG/0.4 ML Syringe SC (05:28)
[2023-11-22] MEDS: Ensure Plus High Protein 120 ML LIQUID PO ×4 (05:28→21:24)
[2023-11-22] MEDS: guaiFENesin 10 ML UDC (200MG/10ML) 20 ML PO ×4 (05:29→21:23)
[2023-11-22] MEDS: 0.9% Saline Lock 10 ML Syringe IV ×3 (05:42→18:06)
[2023-11-22 10:00] VITALS: RESP 18; O2SAT 93
[2023-11-22] MEDS: Aspirin E.C. 81 MG Tablet PO (10:44)
[2023-11-22] MEDS: Potassium Chloride Oral Tablet 20 MEQ PO (10:45)
[2023-11-22] MEDS: Carvedilol 3.125 MG TABLET PO ×2 (10:45→21:24)
[2023-11-22] MEDS: Menthol/Lanolin/Calamine/Znox 113 GM Tube 1 APPLIC TOPICAL ×2 (10:45→21:24)
[2023-11-22] MEDS: Thiamine Hydrochloride 100 MG Tablet PO (10:45)
[2023-11-22] MEDS: Magnesium Chloride 64 MG Delay Rel.Tablet 128 MG PO (10:46)
[2023-11-22] MEDS: buPROPion 75 MG Tablet PO ×2 (10:47→21:24)
[2023-11-22] MEDS: Senna/Docusate Sodium 1 Tablet PO (10:47)
[2023-11-22] MEDS: Lisinopril 2.5 MG Tablet PO (10:47)
[2023-11-22] MEDS: HYDROmorphone 1 MG/ML Syringe 0.5 MG IV ×2 (11:08→18:05)
--- NOTE | 2023-11-22 12:27 | NURSING ---
Patient having large amount of sputum streaked with bright red blood this morning. Suctioned bloody sputum multiple times over the last few hours with danish. Updated Dr. Brian, order for cxray and to DC lovenox. Also hasn't have a BM in 4 days but was NPO during that time and has had very poor intake. Verbal order to increased senna to 2 tabs BID.
--- NOTE | 2023-11-22 12:35 | RAD_ITS ---
EXAM: XR CHEST, 2 VIEWS CLINICAL INDICATION: bloody sputum TECHNIQUE: Frontal and lateral views of the chest. COMPARISON: XR Chest dated 11/19/2023 FINDINGS: LUNGS AND PLEURAL SPACES: Normal. No consolidation or edema. No pneumothorax. No effusion. HEART: Normal heart size. MEDIASTINUM: No mediastinal or hilar mass. BONES/JOINTS: No acute abnormality. TUBES, LINES AND DEVICES: Tracheostomy tube in satisfactory position. Right internal jugular central venous catheter tip in the mid superior vena cava. RAD/Chest PA and Lateral IMPRESSION: No acute cardiopulmonary abnormality. No interval change. Electronically Signed: Roque Flores MD at 14:22 EDT ,
[2023-11-22 13:44] VITALS: BP 104/76; PULSE 84; RESP 20; TEMP 36.8; O2SAT 93
[2023-11-22 13:45] VITALS: PULSE 89; RESP 18; O2SAT 94
[2023-11-22] MEDS: Ipratropium/Albuterol Sulfate 3 ML AMPUL.NEB INHALATION ×2 (13:45→19:13)
[2023-11-22 19:14] VITALS: PULSE 85; RESP 18
[2023-11-22 21:20] VITALS: BP 118/70; PULSE 89
[2023-11-22] MEDS: Senna/Docusate Sodium 1 Tablet 2 TABLET PO (21:24)
[2023-11-22] MEDS: Atorvastatin Calcium 40 MG Tablet PO (21:24)
[2023-11-23] MEDS: guaiFENesin 10 ML UDC (200MG/10ML) 20 ML PO ×3 (04:06→20:51)
[2023-11-23] MEDS: Ensure Plus High Protein 120 ML LIQUID PO ×3 (04:08→20:50)
[2023-11-23] MEDS: Aspirin E.C. 81 MG Tablet PO (05:54)
[2023-11-23] MEDS: Potassium Chloride Oral Tablet 20 MEQ PO (05:54)
[2023-11-23] MEDS: Thiamine Hydrochloride 100 MG Tablet PO (05:55)
[2023-11-23 07:17] VITALS: PULSE 83; RESP 18; O2SAT 94
[2023-11-23] MEDS: Ipratropium/Albuterol Sulfate 3 ML AMPUL.NEB INHALATION (07:20)
[2023-11-23] MEDS: Lidocaine/Prilocaine HCl 5 GM Tube TOPICAL (07:25)
[2023-11-23] MEDS: Hydrocortisone 2.5% Crm 1 APPLIC TOPICAL (07:28)
--- NOTE | 2023-11-23 07:44 | NURSING ---
pt off unit to Dr Frost office for chemo and radiation today. daughter at side.
--- NOTE | 2023-11-23 10:20 | CASEMGMT ---
Social Work LIAM spoke with Edilberto who states the county surveyor has left messages for pt's dgt and is awaiting return call. Determination of acceptance cannot happen until this conversation is had. LIAM will continue to follow for dc planning. MAHENDRA Ferreira
--- NOTE | 2023-11-23 14:43 | NURSING ---
Call from CT down in outpatient pavilion, asking for nurse to come suction patient and change out inner cannula. Went to CT, patient had been coughing up sputum with moderate amounts of bright red blood. Inner cannula removed, inside coated with bloody sputum, replaced with new cannula. Patient tolerated well. Patient wanted suctioned, suctioned small amount of bloody sputum with yankauer. Patient denied any further needs.
[2023-11-23 15:40] VITALS: BP 121/81; PULSE 102; RESP 22; TEMP 36.7; O2SAT 96
[2023-11-23] MEDS: Magnesium Chloride 64 MG Delay Rel.Tablet 128 MG PO (15:41)
[2023-11-23] MEDS: buPROPion 75 MG Tablet PO ×2 (15:41→20:52)
[2023-11-23] MEDS: Senna/Docusate Sodium 1 Tablet 2 TABLET PO ×2 (15:41→20:52)
[2023-11-23] MEDS: Carvedilol 3.125 MG TABLET PO ×2 (15:41→20:50)
[2023-11-23] MEDS: Lisinopril 2.5 MG Tablet PO (15:41)
[2023-11-23] MEDS: Menthol/Lanolin/Calamine/Znox 113 GM Tube 1 APPLIC TOPICAL ×2 (15:42→20:56)
--- NOTE | 2023-11-23 16:03 | NURSING ---
resting in bed, suctioned with small amt of sputum, no bloody sputum at this time. peg tube flushed per order. pt very tender at site. dressing changed to trach & peg insertion site. trach collar in place. call light in reach. meds administered on return
--- NOTE | 2023-11-23 16:30 | NURSING ---
oncology called, cancelling 9am radiation, Will have 1pm CT neck w/contrast on 11/24/23. Georgina, daughter updated on orders
--- NOTE | 2023-11-23 17:55 | NURSING ---
suctioned pt 3x thus far since return from oncology appt. no blood noted in sputum. pt resting in bed call light in reach.
--- NOTE | 2023-11-23 20:11 | PN.TCU_ITS ---
Subjective Subjective Resident seen, examined for regulatory visit. His only complaint is he needs to be suctioned, he denies pain. 11/19/2023 Dr. Barkley placed right internal jugular Port-A-Cath, and PEG. 11/23/2023 Dr. Frost started carboplatin paclitaxel today. Radiation therapy delayed. Objective Data Objective Data Vital Signs: Vital Signs Temp Pulse Resp BP Pulse Ox O2 Del Method O2 Flow Rate 98.0 F 102 H 22 H 121/81 H 96 Trach Collar 6 11/23/23 15:40 11/23/23 15:40 11/23/23 15:40 11/23/23 15:40 11/23/23 15:40 11/23/23 15:40 11/23/23 07:17 FiO2 28 11/22/23 13:45 Oxygen Flow Rate (L/min) 6 Oxygen Delivery Method Trach Collar Weight: 60.237 kg Body Mass Index (BMI) 19.5 Intake & Output: Intake and Output for Last 24 Hours 11/21/23 11/22/23 11/23/23 23:59 23:59 23:59 Intake Total 660 / 660 765 / 765 320 / 320 Output Total 1275 / 1275 350 / 350 600 / 600 Balance -615 / -615 415 / 415 -280 / -280 Lab / Micro Data 11/20/23 05:20 11/20/23 05:20 Micro: Microbiology 11/20/23 05:49 Nasal Secretion SARS-CoV-2 Antigen (Rapid) - Final 11/13/23 05:55 Nasal Secretion SARS-CoV-2 Antigen (Rapid) - Final 11/06/23 11:57 Nasal Secretion SARS-CoV-2 Antigen (Rapid) - Final Physical Exam Const alert General Appearance: cooperative HEENT normocephalic HEENT Narrative: s/p tracheostomy. Eyes PERRL and EOMs intact bilaterally Neck supple, no JVD and no carotid bruits Chest Chest Narrative: Right upper chest port. Resp normal respiratory effort, normal air movement and clear to auscultation bilaterally Cardio regular rate and regular rhythm GI normal to inspection, nondistended, normoactive bowel sounds, non-tender and non-distended GI Narrative: PEG present. Extremity normal capillary refill General Extremity: Negative for edema Skin no rashes or lesions noted General Skin Exam: no breakdown Psych affect normal Appearance: appropriate Assessment & Plan Assessment/Plan (1) Debility: (2) Laryngeal cancer: (3) History of tracheostomy: (4) PEG (percutaneous endoscopic gastrostomy) status: (5) Port-A-Cath in place: (6) Coronary artery disease: (7) Hyperlipidemia: (8) Tobacco abuse: (9) HFrEF (heart failure with reduced ejection fraction): (10) COPD (chronic obstructive pulmonary disease): QUALIFIERS: COPD type: unspecified COPD Qualified Code(s): J44.9 - Chronic obstructive pulmonary disease, unspecified (11) Hypomagnesemia: (12) Hypokalemia: (13) Alcohol abuse: PLAN: Plan 68 year old male with below past medical history hospitalized for laryngeal mass biopsy with tracheostomy, admitted to TCU with debility, here for rehabilitation, strengthening, cancer treatment, prior to disposition determination. * Debility - PT/OT. * Dysphagia - ST. * Pain - Tylenol 650mg q4 prn, Dilaudid 2mg q4h prn pain (6-10) * Bowel - senna/colace 2 tablets bid. * Adult immunization - Administer pneumonia vaccine, covid vaccine, flu vaccine as appropriate. * DVT prophylaxis - Hold, blood tinged trach secretions. * Laryngeal cancer - Dr. Frost chemotherapy, Dr. Priest radiation. * Coronary artery disease - Coreg 3.125mg bid, Lisinopril 2.5mg daily, Aspirin 81mg daily. * Hyperlipidemia - Atorvastatin 40mg qhs. * Tobacco abuse - Bupropion 75mg bid, Nicotine patch 21mg td daily. * Nutrition - Ensure Plus 120ml 4x/day. * Cough - Robitussin 20ml po 4x/day. * Rash - HC 2.5% topical bid prn. * COPD - Duoneb 3ml tid. * Hypomagnesemia - Magnesium chloride 128mg daily. * Skin irritation - Calmoseptine topical bid. * Hypokalemia KCL 20meq daily. * Alcohol abuse - Thiamine 100mg daily.
[2023-11-23] MEDS: Atorvastatin Calcium 40 MG Tablet PO (20:51)
[2023-11-24] MEDS: guaiFENesin 10 ML UDC (200MG/10ML) 20 ML PO ×4 (06:04→21:16)
[2023-11-24 07:20] VITALS: PULSE 88; RESP 19
[2023-11-24 08:16] VITALS: O2SAT 93
[2023-11-24 08:31] VITALS: BP 112/71; PULSE 79; RESP 16; TEMP 36.6; O2SAT 96
[2023-11-24] MEDS: Aspirin E.C. 81 MG Tablet PO (08:35)
[2023-11-24] MEDS: Potassium Chloride Oral Tablet 20 MEQ PO (08:35)
[2023-11-24] MEDS: 0.9% Saline Lock 10 ML Syringe IV (08:35)
[2023-11-24] MEDS: Thiamine Hydrochloride 100 MG Tablet PO (08:35)
[2023-11-24] MEDS: Menthol/Lanolin/Calamine/Znox 113 GM Tube 1 APPLIC TOPICAL ×2 (08:38→21:21)
[2023-11-24] MEDS: Magnesium Chloride 64 MG Delay Rel.Tablet 128 MG PO (08:42)
[2023-11-24] MEDS: Senna/Docusate Sodium 1 Tablet 2 TABLET PO ×2 (08:44→21:16)
[2023-11-24] MEDS: buPROPion 75 MG Tablet PO ×2 (09:04→21:17)
[2023-11-24] MEDS: Carvedilol 3.125 MG TABLET PO ×2 (09:05→21:16)
[2023-11-24] MEDS: Lisinopril 2.5 MG Tablet PO (09:05)
--- NOTE | 2023-11-24 10:30 | CASEMGMT ---
Addendum entered by Jonah Gonzalez 11/24/23 13:28: LIAM received update from [facility] confirming that they spoke with patient's daughter, Georgina. Daughter just called and BOMeli spoke with her. Everything is good with the JOSE process and sounds like it should go through soon. Daughter did acknowledge that she could transport patient most days, unless she has a meeting, but she will let us know of those days. But once JOSE goes through, we can schedule transport through [facility]. We just need his trach size and type. What are his oxygen requirements? How often hes suctioned. And what type of tube feeding he is on! Thank you for assisting! LIAM to provide updated clinical documentation to [facility]. LIAM provided update to Homa Auguste regarding acceptance to facility. Homa informed LIAM that the patient's Medicaid application is currently pending, but spend down plan was completed. 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 Addendum entered by Jonah Gonzalez 11/24/23 12:38: LIAM received update from [facility] Unfortunately, we are going to have to deny the patient. We attempted to reach out to the daughter multiple times with no return calls to discuss JOSE. This is making us believe that it may be difficult to get ahold of her to assist with the transportation or to continue with the JOSE process. I apologize for the inconvenience. LIAM contacted Georgina via phone [phone] to notify of denial for placement. Georgina informed LIAM that she has not received any calls and inquired about number provided. LIAM confirmed that Georgina's mobile number and work contact was provided to facility. Georgina informed LIAM that she will contact [facility] after phone. Original Note: Social Work LIAM contacted [facility] via [employer] to follow up regarding referral for potential placement. [facility] has been unable to make contact with daughter, Georgina. LIAM contacted Georgina via phone [phone] to follow up regarding request to discuss placement with [facility]. LIAM requested that Georgina speaks with [facility]. Georgina informed LIAM your partner, Meredith that you work with, is supposed to be handling that. Georgina inquired about patient acceptance for placement at [facility]. LIAM informed Georgina that BO at [facility] would like to discuss JOSE and financial coverage for placement prior to acceptance. Georgina informed LIAM that she will contact [facility]. LIAM will continue to follow to support discharge planning. SHAKIR Cross
[2023-11-24 10:33] VITALS: BMI 19.8
[2023-11-24 10:47] VITALS: O2SAT 98
--- NOTE | 2023-11-24 11:16 | NURSING ---
pt has CT today at 1pm, wants to wait to take mag citrate when done with that, will administer later today
[2023-11-24] MEDS: Ensure Plus High Protein 120 ML LIQUID PO ×3 (11:53→21:16)
--- NOTE | 2023-11-24 12:24 | NURSING ---
PEG flushed per order & dressing changed. trach care completed, inner cannula changed. pt can cough up own sputum and then nursing suctions with belgica. small amts of thick yellow mucus expectorated.
--- NOTE | 2023-11-24 12:55 | NURSING ---
pt off unit to CT via WC at this time.
--- NOTE | 2023-11-24 13:20 | PHA.CONS_ITS ---
Documented by User: Heaven Babcock 11/24/23 13:45 TCU RX Drug Regimen Review Subjective/Objective Subjective/Objective: Subjective: TCU October Note. Hospitalized for laryngeal mass biopsy with tracheostomy. Resident has begun chemotherapy (carboplatin and paclitaxel). Admitted to TCU with debility for strengthening and rehabilitation. Objective: Allergies No Known Allergies Allergy (Verified 11/23/23 08:51) Current Medications Generic Name Dose Route Start Last Admin Trade Name Freq PRN Reason Stop Dose Admin Acetaminophen 650 mg 10/23/23 18:55 11/12/23 22:09 Acetaminophen 325 Mg Tablet PO 650 mg Q4H PRN PRN Administration Pain Score 1-10 Albuterol/Ipratropium 3 ml 10/26/23 14:00 11/23/23 07:20 Ipratropium/Albuterol Sulfate 3 Ml Ampul.Neb INHALATION 3 ml TID.RT IKER Administration Aspirin 81 mg 11/13/23 08:00 11/24/23 08:35 Aspirin E.C. 81 Mg Tablet PO 81 mg BREAKFAST IKER Administration Atorvastatin Calcium 40 mg 10/23/23 22:00 11/23/23 20:51 Atorvastatin Calcium 40 Mg Tablet PO 40 mg QHS IKER Administration Bupropion HCl 75 mg 10/24/23 22:00 11/24/23 09:04 Bupropion 75 Mg Tablet PO 75 mg BID IKER Administration Calamine/Phenol 1 applic 10/24/23 22:00 11/24/23 08:38 Menthol/Lanolin/Calamine/Znox 113 Gm Tube TOPICAL 1 applic BID IKER Administration Protocol Carvedilol 3.125 mg 11/12/23 22:00 11/24/23 09:05 Carvedilol 3.125 Mg Tablet PO 3.125 mg BID IKER Administration Protocol Guaifenesin 20 ml 11/20/23 17:00 11/24/23 11:53 Guaifenesin 10 Ml Udc (200mg/10ml) PO 20 ml 4X/DAY IKER Administration Hydrocortisone 1 applic 10/30/23 13:51 11/23/23 07:28 Hydrocortisone 2.5% Crm TOPICAL 1 applic BID PRN PRN Administration RASH/TOPICAL IRRITATION Protocol Hydromorphone HCl 2 mg 11/23/23 17:32 Hydromorphone 2 Mg Tablet PO Q4H PRN PRN Pain Score 6-10 or Pre PT/OT Lisinopril 2.5 mg 11/13/23 10:00 11/24/23 09:05 Lisinopril 2.5 Mg Tablet PO 2.5 mg DAILY IKER Administration Protocol Magnesium Chloride 128 mg 10/25/23 10:00 11/24/23 08:42 Magnesium Chloride 64 Mg Delay Rel.Tablet PO 128 mg DAILY IKER Administration Nicotine 21 mg 10/24/23 10:00 11/24/23 08:43 Nicotine 21 Mg Patch TD 21 mg DAILY IKER Administration Nutritional Formula (Lactose Free) 120 ml 11/04/23 17:00 11/24/23 11:53 Ensure Plus High Protein 120 Ml Liquid PO 120 ml 4X/DAY IKER Administration Potassium Chloride 20 meq 10/25/23 08:00 11/24/23 08:35 Potassium Chloride Oral Tablet 20 Meq PO 20 meq DAILYCM IKER Administration Senna/Docusate Sodium 2 tablet 11/22/23 22:00 11/24/23 08:44 Senna/Docusate Sodium 1 Tablet PO 2 tablet BID IKER Administration Sodium Chloride 10 - 40 ml 10/23/23 17:58 11/24/23 08:35 0.9% Saline Lock 10 Ml Syringe IV 10 ml UD PRN Administration SALINE FLUSH Thiamine HCl 100 mg 10/24/23 08:00 11/24/23 08:35 Thiamine Hydrochloride 100 Mg Tablet PO 100 mg DAILYCM IKER Administration Problem List (Updated 11/23/23 @ 20:[address] Benny Brian MD) Alcohol abuse (Acute) Hypomagnesemia (Acute) HFrEF (heart failure with reduced ejection fraction) (Acute) Laryngeal cancer (Acute) PEG (percutaneous endoscopic gastrostomy) status (Acute) Port-A-Cath in place (Acute) Coronary artery disease (Chronic) Laryngeal squamous cell carcinoma (Chronic) History of tracheostomy (Acute) Acute respiratory distress (Acute) History of laryngoscopy (Acute) Hypophosphatemia (Acute) Acute anemia (Acute) Severe protein-calorie malnutrition (Acute) Hypokalemia (Acute) Cardiomyopathy (Acute) Tobacco abuse (Acute) Alcoholism (Acute) Hyperlipidemia (Acute) Chronic HFrEF (heart failure with reduced ejection fraction) (Chronic) Debility (Acute) COPD (chronic obstructive pulmonary disease) (Chronic) Vital Signs Temp Pulse Resp BP Pulse Ox O2 Del Method O2 Flow Rate 97.8 F 79 16 112/71 98 Trach Collar 2 11/24/23 08:31 11/24/23 08:31 11/24/23 08:31 11/24/23 08:31 11/24/23 10:47 11/24/23 08:31 11/24/23 10:47 FiO2 28 11/22/23 13:45 Oxygen Flow Rate (L/min) 2 Oxygen Delivery Method Trach Collar Weight: 60.691 kg Body Mass Index (BMI) 19.8 Sodium 133 mmol/L (136-145) L 11/20/23 05:20 Potassium 3.8 mmol/L (3.5-5.1) 11/20/23 05:20 Chloride 100 mmol/L (98-107) 11/20/23 05:20 Carbon Dioxide 28.0 mmol/L (21.0-32.0) 11/20/23 05:20 Anion Gap 5 (5-15) 11/20/23 05:20 BUN 10 mg/dL (7-18) 11/20/23 05:20 Creatinine 0.49 mg/dL (0.70-1.30) L 11/20/23 05:20 Est GFR (MDRD) Af Amer 217 mL/min (>60) 11/20/23 05:20 Est GFR (MDRD) Non-Af 180 mL/min (>60) 11/20/23 05:20 BUN/Creatinine Ratio 20.4 RATIO (10-20) H 11/20/23 05:20 Glucose 97 mg/dL (74-106) 11/20/23 05:20 Assessment/Plan: 1. Pain: acetaminophen 650mg PO Q4H PRN pain 1-10 and hydromorphone 2mg PO PO Q4H PRN pain 6-10. Last dose of acetaminophen was 11/11 and no doses of hydromorphone have been given. Please continue to monitor for increased pain and PRN usage. 2. Bowel: senna/docusate 2T PO BID. Please continue to monitor for constipation/diarrhea and stool discoloration. Last documented bowel movement was 11/17. 3. Cough/COPD: Duoneb 3mL inhalation TID.RT and guaifenesin 20mL PO 4x/day. Please continue to monitor for SOB and HR (last 79). 4. Hyperlipidemia: atorvastatin 40mg PO QHS. Please continue to monitor LFTs ( last 10/24/23), lipid panel (last 10/17/23) and muscle pain. 5. CAD: lisinopril 2.5mg PO daily, carvedilol 3.125mg PO BID and aspirin 81 mg PO breakfast. Please continue to monitor S/S of bleeding, hemoglobin (last 11.4g/dL), BP (last 112/71), SCr (last 0.49mg/dL), potassium (last 3.8mmol/L), edema and cough. 6. Alcohol abuse: thiamine 100mg PO DAILYCM. Please continue to monitor. 7. Hypomagnesemia: magnesium chloride 128mg PO daily. Please continue to monitor magnesium levels (last 1.9mg/dL 10/24/23). 8. Hypokalemia: potassium chloride 20mEq PO DAILYCM. Please continue to monitor potassium (last 3.8mmol/L). 9. Rash: hydrocortisone 2.5% topical cream BID PRN rash/topical irritation. Last dose 11/23/23. Please continue to monitor for PRN usage and rash. 10. Laryngeal cancer: Dr. Frost chemotherapy (started carboplatin and paclitaxel), Dr. Priest radiation. Please monitor CBC, hair loss, nausea/vomiting, electrolytes and liver function. Assessment/Plan for indications treated with psychotropic medications: 1. Smoking cessation: nicotine 21mg topical daily and bupropion 75mg PO BID. GDR not appropriate as bupropion is being used for smoking cessation and it was just started. Please continue to monitor for nicotine cravings, HR, vivid dreams, suicidal ideation (black box warning), insomnia and dizziness. Medical chart and medication regimen reviewed. The following medication irregularities or issues were identified: None Date Date of Note:: 11/24/23 Documented by User: Dr. Benny Brian MD 11/24/23 13:21 TCU RX Drug Regimen Review Provider Comments Provider responsibility Provider Comments to Recommendations by Pharmacy: Agree
--- NOTE | 2023-11-24 14:00 | NURSING ---
pt returned to floor
[2023-11-24] MEDS: Magnesium Citrate 300 ML GT (14:29)
[2023-11-24 18:58] VITALS: PULSE 95; RESP 20
[2023-11-24] MEDS: Ipratropium/Albuterol Sulfate 3 ML AMPUL.NEB INHALATION (18:58)
[2023-11-24] MEDS: Atorvastatin Calcium 40 MG Tablet PO (21:16)
--- NOTE | 2023-11-24 23:08 | NURSING ---
Peg tube flushed per order, dressing changed. Port to right chest flushed, blood return noted. Suctioned trach at this time as well. Patient tolerated well. Will continue to monitor.
--- NOTE | 2023-11-25 05:42 | CPS ---
[2425] Pt.'s cool mist aerosol set-up changed this morning (tubing, water and trach mask).
[2023-11-25] MEDS: Aspirin E.C. 81 MG Tablet PO (08:38)
[2023-11-25] MEDS: Magnesium Chloride 64 MG Delay Rel.Tablet 128 MG PO (08:38)
[2023-11-25] MEDS: buPROPion 75 MG Tablet PO ×2 (08:38→23:02)
[2023-11-25] MEDS: Senna/Docusate Sodium 1 Tablet 2 TABLET PO ×2 (08:38→23:02)
[2023-11-25] MEDS: Carvedilol 3.125 MG TABLET PO ×2 (08:38→23:02)
[2023-11-25] MEDS: Potassium Chloride Oral Tablet 20 MEQ PO (08:39)
[2023-11-25] MEDS: Thiamine Hydrochloride 100 MG Tablet PO (08:39)
[2023-11-25] MEDS: Lisinopril 2.5 MG Tablet PO (08:39)
[2023-11-25] MEDS: Menthol/Lanolin/Calamine/Znox 113 GM Tube 1 APPLIC TOPICAL ×2 (08:40→23:03)
[2023-11-25] MEDS: guaiFENesin 10 ML UDC (200MG/10ML) 20 ML PO ×4 (08:40→23:02)
[2023-11-25 09:30] VITALS: BP 101/65; PULSE 94; RESP 18; TEMP 36.7; O2SAT 95
--- NOTE | 2023-11-25 10:04 | NURSING ---
Notified Dr Barkley of pt c/o intermittent pain to peg site. Dr Barkley to come to unit later today to see pt.
[2023-11-25] MEDS: 0.9% Saline Lock 10 ML Syringe IV (10:15)
--- NOTE | 2023-11-25 10:22 | STRESSREP_ITS ---
Stress Test Report Date: 11/25/2023 Procedure: Pharmacologic stress nuclear imaging study Indications: Cardiomyopathy Consent: Per the patient Procedure: The patient underwent pharmacologic (Regadenoson 0.4mg ) evaluation with a peak heart rate of 114 beats per minute (75%predicted maximal heart rate) and a peak blood pressure of 122/78 mmHg. The baseline ECG demonstrated sinus rhythm. The peak pharmacologic ECG demonstrated no ischemic changes. There were no cardiac dysrhythmias pretest, during pharmacologic infusion, or recovery. There was no complaint of chest discomfort during pharmacologic infusion or recovery. The patient was injected with 11.7 millicuries of technetium 99m Cardiolite and subsequently rest SPECT Cardiolite nuclear imaging was obtained in the horizontal long, vertical long, and short axis views. The patient underwent pharmacologic (Regadenoson) evaluation. The patient was injected with 33.2 millicuries of technetium 99m Cardiolite and subsequently stress SPECT Cardiolite nuclear imaging was obtained in the horizontal long, vertical long, and short axis views. A gated Cardiolite study at peak stress was obtained. The examination was stopped secondary to completion of protocol. Rest and stress SPECT Cardiolite nuclear imaging status post realignment, normalization, and attenuation correction demonstrate no fixed or reversible perfusion defects. There is end systolic thickening and brightening. The gated Cardiolite study demonstrates myocardial thickening and inward wall motion. The reported LVEF is 63%. Impression: 1. Pharmacologic (Regadenoson) evaluation 2. Peak pharmacologic ECG with no ischemic changes. 3. There were no cardiac dysrhythmias pretest, during pharmacologic infusion, or recovery. 5. Rest and stress SPECT Cardiolite nuclear imaging demonstrate relative uniform tracer uptake and myocardial perfusion appearing within normal limits. 6. The gated Cardiolite study reports an LVEF of 63%. This note was generated with [employer] software. It may contain incorrect words, spelling, and punctuation that were not noted in checking the note before signing.
--- NOTE | 2023-11-25 10:58 | NURSING ---
Dr Barkley to unit and looked at peg site. stated everything is good. pt does not have to wear abd binder unless he wants to. Also, blue suture can be removed in 5 weeks.
[2023-11-25] MEDS: Ensure Plus High Protein 120 ML LIQUID PO ×3 (12:25→23:03)
--- NOTE | 2023-11-25 12:53 | PCM.PN.BLA ---
Progress Note Notified by patient's nurse that PEG tube site has remained painful since placement. They otherwise denied any concerning findings with inspection. I presented to patient's bedside and found him resting comfortably. He states that he has only mild discomfort from his PEG tube and it only seems to her right where it exits the abdominal wall and with this mainly just when his abdominal binder is placed too tightly about the tube. On inspection there is no redness and only mild tenderness right at the exit site. Patient's bumper remains at 4 cm on the tube. There does not appear to be undue tension with patient's retention suture on the medial aspect of the tube. Mr. Griffin, further, confirms that his port was used successfully for chemotherapy and that he is due to start his radiation today. He has not made use of his tube for feeds as he has still been tolerating oral nutrition without difficulty. At this time I find no cause for further investigation or manipulation of the tube but encourage patient's TCU team to ensure that the position on the bumper remained stable and have advised that his retention sutures could be removed in another 5 weeks (6 weeks from time of placement).
[2023-11-25] MEDS: Ipratropium/Albuterol Sulfate 3 ML AMPUL.NEB INHALATION ×2 (13:16→19:56)
[2023-11-25 13:17] VITALS: PULSE 89; RESP 19; O2SAT 94
--- NOTE | 2023-11-25 13:19 | CPS ---
COOL MIST BOTTLE 3/4 FULL. WATER TRAP IN LINE.
[2023-11-25 16:15] VITALS: O2SAT 99
[2023-11-25 19:56] VITALS: PULSE 89; RESP 18; O2SAT 95
[2023-11-25 22:53] VITALS: BP 95/65; PULSE 87
[2023-11-25] MEDS: Atorvastatin Calcium 40 MG Tablet PO (23:02)
[2023-11-26] MEDS: guaiFENesin 10 ML UDC (200MG/10ML) 20 ML PO ×4 (04:47→21:09)
[2023-11-26] MEDS: Ensure Plus High Protein 120 ML LIQUID PO ×2 (04:47→12:05)
[2023-11-26 07:25] VITALS: PULSE 85; RESP 17; O2SAT 94
[2023-11-26] MEDS: Ipratropium/Albuterol Sulfate 3 ML AMPUL.NEB INHALATION ×3 (07:25→19:45)
[2023-11-26 07:44] VITALS: BP 110/70; PULSE 93; RESP 18; TEMP 36.5; O2SAT 96
[2023-11-26 07:45] VITALS: PULSE 93; RESP 18
[2023-11-26] MEDS: Thiamine Hydrochloride 100 MG Tablet PO (07:55)
[2023-11-26] MEDS: Potassium Chloride Oral Tablet 20 MEQ PO (07:55)
[2023-11-26] MEDS: Aspirin E.C. 81 MG Tablet PO (07:55)
--- NOTE | 2023-11-26 08:40 | NURSING ---
Patient off unit for radiation treatment.
--- NOTE | 2023-11-26 09:01 | CASEMGMT ---
Addendum entered by Jonah Gonzalez 11/26/23 17:40: Discharge Plan: [facility] nursing and rehabilitation; DME Portable Suction Device and Home O2 Addendum entered by Jonah Gonzalez 11/26/23 10:53: Patient returned to TCU post radiation. LIAM received notification from [facility] that the patient's daughter, Georgina informed team that she will be taking patient out of TCU on 12/01/2023. LIAM met with patient and daughter at bedside to discuss discharge. Georgina informed LIAM that she would like to arrange discharge on 12/01/2023 at 1030A to [facility]. Georgina informed LIAM that she has been in contact with [facility] regarding placement. Georgina informed LIAM that she would like details provided regarding discharge plans. LIAM reviewed plans for discharge to transition to [facility]. Georgina informed LIAM that she would like to transport the patient to the facility. Georgina informed LIAM that she is awaiting for [facility] bank to verify her POA to provide information for Medicaid. Patient currently has a Medicaid pending. Georgina inquired about Medicaid coverage reimburse her or cover for bills currently coming through. LIAM informed Georgina that she will need to follow up with Medicaid and keep receipts for bills provided. LIAM informed Georgina that [facility] does not accept Medicaid, so a bill will be associated with continued stay. Georgina informed LIAM I will be talking to Patient advocate about that because I was not notified of that. LIAM informed Georgina that a discussion was had regarding Medicare limited coverage post 20 days. Georgina informed LIAM that she has spent down the money patient had saved for cremation services and trust for care of patient. Georgina informed LIAM that she received a bill from oncology, she is unsure how to cover for expenses. Georgina informed LIAM that she has been in contact with Homa from [facility] to navigate Medicaid coverage. Homa inquired about patient obtaining equipment such as wheelchair and portable suction device. LIAM informed Homa that a wheelchair can be ordered through facility [facility]. LIAM will contact [employer] to determine, if a portable suction can be order. Homa informed LIAM that the patient will be at [facility] until his apartment is approved. LIAM provided patient with Notice of Medicare Non-Coverage for current [employer] with end date of 11/30/2023. Patient anticipates discharge on 12/01/2023 to [facility]. Patient provided signature for [facility] and a copy was left at bedside. Original Note: Social Work SW received notification from [facility] that they are able to accept patient. SW provided patient's trach type, size, and brand. [facility] has inner cannula, but do not have the trachs. [facility] is requesting to arrange discharge early next week. SW notified patient and daughterGeorgina that [facility] is able to accept patient for placement. Patient leaving unit for oncology appointment. Patient's daughter would like to have assistance arranging discharge to facility. SW will follow up with patient and daughter post appointment to assist with planning discharge. SHAKIR Cross
[2023-11-26] MEDS: buPROPion 75 MG Tablet PO ×2 (09:41→21:08)
[2023-11-26] MEDS: Magnesium Chloride 64 MG Delay Rel.Tablet 128 MG PO (09:41)
[2023-11-26] MEDS: Senna/Docusate Sodium 1 Tablet 2 TABLET PO ×2 (09:41→21:09)
[2023-11-26] MEDS: Lisinopril 2.5 MG Tablet PO (09:42)
[2023-11-26] MEDS: Menthol/Lanolin/Calamine/Znox 113 GM Tube 1 APPLIC TOPICAL ×2 (09:45→21:07)
--- NOTE | 2023-11-26 09:59 | NURSING ---
Patient returned from tx. Ate breakfast, AM medications administered. Trach care completed, new cannula placed. Patient tolerated well. Continues to need frequent suctioning.
[2023-11-26] MEDS: Carvedilol 3.125 MG TABLET PO ×2 (12:05→21:09)
[2023-11-26 13:13] VITALS: PULSE 90; RESP 17
--- NOTE | 2023-11-26 14:45 | NURSING ---
Patient off unit for radiation.
--- NOTE | 2023-11-26 15:55 | NURSING ---
Patient returned from radiation therapy. Denies any issues.
--- NOTE | 2023-11-26 19:35 | DS.PCM_ITS ---
Providers Date of Admission: 10/23/23 Primary Care Physician: No Primary Care Phys Reason For Visit: POST OP RESPIRATORY FAILURE Diagnosis Discharge Diagnosis (1) Debility: Status: Acute Code(s): R53.81 - Other malaise (2) Laryngeal cancer: Status: Acute Code(s): C32.9 - Malignant neoplasm of larynx, unspecified (3) History of tracheostomy: Status: Acute Code(s): Z98.890 - Other specified postprocedural states (4) PEG (percutaneous endoscopic gastrostomy) status: Status: Acute Code(s): Z93.1 - Gastrostomy status (5) Port-A-Cath in place: Status: Acute Code(s): Z95.828 - Presence of other vascular implants and grafts (6) Coronary artery disease: Status: Chronic Code(s): I25.10 - Atherosclerotic heart disease of [place] coronary artery without angina pectoris (7) Hyperlipidemia: Status: Acute Code(s): E78.5 - Hyperlipidemia, unspecified (8) Tobacco abuse: Status: Acute Code(s): Z72.0 - Tobacco use (9) HFrEF (heart failure with reduced ejection fraction): Status: Acute Code(s): I50.20 - Unspecified systolic (congestive) heart failure (10) COPD (chronic obstructive pulmonary disease): Status: Chronic Code(s): J44.9 - Chronic obstructive pulmonary disease, unspecified Qualifiers: COPD type: unspecified COPD Qualified Code(s): J44.9 - Chronic obstructive pulmonary disease, unspecified (11) Hypomagnesemia: Status: Acute Code(s): E83.42 - Hypomagnesemia (12) Hypokalemia: Status: Acute Code(s): E87.6 - Hypokalemia (13) Alcohol abuse: Status: Acute Code(s): F10.10 - Alcohol abuse, uncomplicated Plan 68 year old male with below past medical history hospitalized for laryngeal mass biopsy with tracheostomy, admitted to TCU with debility, here for rehabilitation, strengthening, cancer treatment, prior to disposition determination. * Debility - PT/OT. * Dysphagia - ST. * Pain - Tylenol 650mg q4 prn, Dilaudid 2mg q4h prn pain (6-10) * Bowel - senna/colace 2 tablets bid. * Adult immunization - Administer pneumonia vaccine, covid vaccine, flu vaccine as appropriate. * DVT prophylaxis - Hold, blood tinged trach secretions. * Laryngeal cancer - Dr. Frost chemotherapy, Dr. Priest radiation. * Coronary artery disease - Coreg 3.125mg bid, Lisinopril 2.5mg daily, Aspirin 81mg daily. * Hyperlipidemia - Atorvastatin 40mg qhs. * Tobacco abuse - Bupropion 75mg bid, Nicotine patch 21mg td daily. * Nutrition - Ensure Plus 120ml 4x/day. * Cough - Robitussin 20ml po 4x/day. * Rash - HC 2.5% topical bid prn. * COPD - Duoneb 3ml tid. * Hypomagnesemia - Magnesium chloride 128mg daily. * Skin irritation - Calmoseptine topical bid. * Hypokalemia KCL 20meq daily. * Alcohol abuse - Thiamine 100mg daily. Medications at Discharge Home Medications atorvastatin 40 mg tablet 40 mg PO QHS Cholesterol #30 tabs 10/15/23 acetaminophen 325 mg tablet 650 mg (2 x 325 mg) PO Q4H PRN PRN Pain Score 1-10 #0 tabs 10/23/23 nicotine 21 mg/24 hr daily transdermal patch 21 mg transdermal DAILY smoking 28 days #0 ea 10/23/23 lidocaine-prilocaine 2.5 %-2.5 % topical cream 1 applic topical ONCE PRN port access 30 days #30 grams 11/17/23 aspirin 81 mg tablet,delayed release 81 mg PO BREAKFAST #0 tabs 11/26/23 bupropion HCl 75 mg tablet 75 mg PO BID #0 tabs 11/26/23 carvedilol 3.125 mg tablet 3.125 mg PO BID #0 tabs 11/26/23 food supplemt, lactose-reduced 0.08 gram-1.5 kcal/mL oral liquid (Ensure Plus High Protein) 120 ml PO 4X/DAY #0 mL 11/26/23 ipratropium 0.5 mg-albuterol 3 mg (2.5 mg base)/3 mL nebulization soln 3 ml inhalation TID.RT #0 mL 11/26/23 lisinopril 2.5 mg tablet 2.5 mg PO DAILY #0 tabs 11/26/23 magnesium chloride 64 mg (magnesium chloride) tablet,delayed release (Mag 64) 128 mg (2 x 64 mg) PO DAILY #0 tabs 11/26/23 menthol 0.44 %-zinc oxide 20.6 % topical ointment (Calmoseptine) 1 applic topical BID #0 grams 11/26/23 potassium chloride 20 mEq tablet,extended release(part/cryst) 20 meq PO DAILYCM #0 tabs 11/26/23 sennosides 8.6 mg-docusate sodium 50 mg tablet (Stool Softener-Stimulant Laxative) 2 tab PO BID #0 tabs 11/26/23 thiamine HCl (vitamin B1) 100 mg tablet (Vitamin B-1) 100 mg PO DAILYCM #0 tabs 11/26/23 Hospital Course Operations - (Tracheostomy, port.) Procedures Peg tube placement Summary of Care Provided Minutes Spent on Discharge: 35 Hospital Course: 68 year old male with below past medical history hospitalized for laryngeal mass biopsy with tracheostomy, admitted to TCU with debility, here for rehabilitation, strengthening, cancer treatment, prior to disposition determination. 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 Dr. Baldemar Frost chemotherapy, Dr. Renan Priest radiation. Resident has tolerated 1 week of treatment. Discharge to [facility] nursing and rehabilitation, skilled, DME Portable suction device, and Home Oxygen. Oxygen: I have reviewed the oxygen testing, and this patient qualifies for the home equipment and portability. The patient is mobile in the home and the community. 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 Physical Exam Const alert General Appearance: cooperative HEENT normocephalic HEENT Narrative: s/p tracheostomy. Eyes PERRL and EOMs intact bilaterally Neck supple, no JVD and no carotid bruits Chest Chest Narrative: Right upper chest port. Resp normal respiratory effort, normal air movement and clear to auscultation bilaterally Cardio regular rate and regular rhythm GI normal to inspection, nondistended, normoactive bowel sounds, non-tender and non-distended GI Narrative: PEG present. Extremity normal capillary refill General Extremity: Negative for edema Skin no rashes or lesions noted General Skin Exam: no breakdown Psych affect normal Appearance: appropriate Weight / BMI Weight Weight: 60.691 kg Body Mass Index (BMI) 19.8 ABG / Lab / Microbiology Data 11/20/23 05:20 11/20/23 05:20 Microbiology: Microbiology 11/20/23 05:49 Nasal Secretion SARS-CoV-2 Antigen (Rapid) - Final 11/13/23 05:55 Nasal Secretion SARS-CoV-2 Antigen (Rapid) - Final 11/06/23 11:57 Nasal Secretion SARS-CoV-2 Antigen (Rapid) - Final D/C Instructions Discharge Diet: No restrictions Discharge Activity: Return to Normal Activity, May Shower and Use Walker Weight Bearing Status: Weight bearing as tolerated Call your doctor if you observe: Fever of 101 or Higher, Inability to urinate, Inability to have a bowel movement, Shortness of breath, Dizziness, Fainting spells, Swelling in the ankles, Chest pain and Uncontrolled pain Additional Instructions: Discharge to [facility], skilled, DME Portable suction device, and Home Oxygen. Oxygen: I have reviewed the oxygen testing, and this patient qualifies for the home equipment and portability. The patient is mobile in the home and the community. 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 Please Follow Up With: MRI When: As scheduled. Meaningful Use Info Meaningful Use Meaningful Use Diagnoses (Choose all that apply): None applicable Ischemic Stroke Statin Dosing Therapy Reference: STATIN DOSE THERAPY REFERENCE: * Patients > 75 years receive moderate or high dose statin therapy. * Patients 75 years or YOUNGER should receive HIGH intensity statin dose unless contraindicated. You will be required to document reason for non-treatment if statin daily dose does not meet guidelines. HIGH DOSE STATIN THERAPY DAILY Atorvastatin > than or = to 40 mg Rosuvastatin > than or = to 20 mg Amlodipine + Atorvastatin > than or = to 2.5/40 mg Ezetimibe + Simvastatin 10/80 mg Simvastatin 80mg Discharge Plan Admission Admit Date/Time: 10/23/23 17:49 Primary Reason for Your Visit: Debility. Attending Provider: Benny Brian Chi Primary Care Provider: Care Physician,No Primary Instructions Additional Instructions / Restrictions: Discharge to [facility], skilled, DME Portable suction device, and Home Oxygen. Oxygen: I have reviewed the oxygen testing, and this patient qualifies for the home equipment and portability. The patient is mobile in the home and the community. 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 Discharge Orders/Prescriptions Prescriptions: New ipratropium-albuterol 0.5 mg-3 mg(2.5 mg base)/3 mL Solution For Nebulization 3 ml inhalation TID.RT Qty: 0 0RF sennosides-docusate sodium [Stool Softener-Stimulant Laxat] 8.6-50 mg Tablet 2 tab PO BID Qty: 0 0RF thiamine HCl (vitamin B1) [Vitamin B-1] 100 mg Tablet 100 mg PO DAILYCM Qty: 0 0RF aspirin 81 mg Tablet,Delayed Release (Dr/Ec) 81 mg PO BREAKFAST Qty: 0 0RF carvedilol 3.125 mg Tablet 3.125 mg PO BID Qty: 0 0RF potassium chloride 20 mEq Tablet,Er Particles/Crystals 20 meq PO DAILYCM Qty: 0 0RF bupropion HCl 75 mg Tablet 75 mg PO BID Qty: 0 0RF lisinopril 2.5 mg Tablet 2.5 mg PO DAILY Qty: 0 0RF magnesium chloride [Mag 64] 64 mg Tablet,Delayed Release (Dr/Ec) 128 mg PO DAILY Qty: 0 0RF menthol-zinc oxide [Calmoseptine] 0.44-20.6 % Ointment 1 applic topical BID Qty: 0 0RF Protocol: *Topical Application Instructions APPLICATION INSTRUCTIONS: Apply to buttock Ensure Plus High Protein 0.08 gram-1.5 kcal/mL Liquid 120 ml PO 4X/DAY Qty: 0 0RF Continued lidocaine-prilocaine 2.5-2.5 % cream 1 applic topical ONCE PRN (Reason: port access) 30 Days Qty: 30 2RF atorvastatin 40 mg Tablet 40 mg PO QHS Qty: 30 2RF acetaminophen 325 mg Tablet 650 mg PO Q4H PRN PRN (Reason: Pain Score 1-10) Qty: 0 0RF nicotine 21 mg/24 hr Patch 24 Hour 21 mg transdermal DAILY 28 Days Qty: 0 0RF Discontinued albuterol sulfate 2.5 mg /3 mL (0.083 %) solution for nebulization 2.5 mg inhalation TID bupropion HCl 75 mg tablet 75 mg PO BID aspirin [Leatha Low Dose Aspirin] 81 mg tablet,delayed release (DR/EC) 81 mg PO DAILY Qty: 30 11RF carvedilol 3.125 mg tablet 3.125 mg PO BID Qty: 60 11RF Rx Instructions: must administer with a meal/food lisinopril 2.5 mg tablet 2.5 mg PO DAILY Qty: 30 11RF ondansetron 4 mg tablet,disintegrating 4 mg PO Q8H PRN (Reason: nausea and vomiting) Qty: 30 1RF enoxaparin [Lovenox] 40 mg/0.4 mL syringe 40 mg subcut DAILY magnesium chloride 64 mg tablet,delayed release (DR/EC) 128 mg PO DAILY potassium chloride 20 mEq tablet extended release 20 meq PO DAILY furosemide 40 mg Tablet 40 mg PO DAILY Qty: 30 2RF thiamine HCl (vitamin B1) [Vitamin B-1] 100 mg Tablet 100 mg PO DAILYCM Qty: 30 2RF lisinopril 5 mg Tablet 5 mg PO DAILY Qty: 30 2RF ipratropium-albuterol 0.5 mg-3 mg(2.5 mg base)/3 mL Solution For Nebulization 3 ml inhalation Q4H PRN (Reason: SOB) Qty: 0 0RF Referrals / Follow Up: Care Physician,No Primary [Primary Care Provider] - Nadia Cadena UKE DRIVER, UKE DRIVER-C [Med Staff - Adv Practice Prof] - 02/02/24 1:15 pm (COPD) Baldemar Frost MD [Med Staff - Active Staff] - Within 1 Week Renan Priest DO [Med Staff - Active Staff] - Within 1 Week Disposition Disposition (needs filled in before D/C Order can be placed): [facility]
[2023-11-26 19:45] VITALS: PULSE 89; RESP 18; O2SAT 96
--- NOTE | 2023-11-26 19:47 | PCM.TXEXTCAR ---
Diet Diet Order/Speech Therapy: 11/25/23 14:48 Diet: Regular - General Type of Dietary Supplement:: Ensure Clear Is pt able to select menu?: Yes Routine Orders/Code Status Code Status: Full Code Wound(s) MATTIE BUTTOCKS: Wound Type: shearing Dressing Change: theodore applied RT POST HEAD: Wound Type: Abrasion Rt port site: Wound Type: Surgical Incision Dressing Change: dermabond, accessed for CT with power port, transparent dressing Therapies Weight Bearing: Weight bearing as tolerated Extremity Affected:: Bilateral Lower Physical Therapy: Eval and Treat Occupational Therapy: Eval and Treat Speech Therapy: Eval and Treat Problem/Diagnosis (1) Debility: Status: Acute Code(s): R53.81 - Other malaise (2) Laryngeal cancer: Status: Acute Code(s): C32.9 - Malignant neoplasm of larynx, unspecified (3) History of tracheostomy: Status: Acute Code(s): Z98.890 - Other specified postprocedural states (4) PEG (percutaneous endoscopic gastrostomy) status: Status: Acute Code(s): Z93.1 - Gastrostomy status (5) Port-A-Cath in place: Status: Acute Code(s): Z95.828 - Presence of other vascular implants and grafts (6) Coronary artery disease: Status: Chronic Code(s): I25.10 - Atherosclerotic heart disease of [place] coronary artery without angina pectoris (7) Hyperlipidemia: Status: Acute Code(s): E78.5 - Hyperlipidemia, unspecified (8) Tobacco abuse: Status: Acute Code(s): Z72.0 - Tobacco use (9) HFrEF (heart failure with reduced ejection fraction): Status: Acute Code(s): I50.20 - Unspecified systolic (congestive) heart failure (10) COPD (chronic obstructive pulmonary disease): Status: Chronic Code(s): J44.9 - Chronic obstructive pulmonary disease, unspecified (11) Hypomagnesemia: Status: Acute Code(s): E83.42 - Hypomagnesemia (12) Hypokalemia: Status: Acute Code(s): E87.6 - Hypokalemia (13) Alcohol abuse: Status: Acute Code(s): F10.10 - Alcohol abuse, uncomplicated Plan 68 year old male with below past medical history hospitalized for laryngeal mass biopsy with tracheostomy, admitted to TCU with debility, here for rehabilitation, strengthening, cancer treatment, prior to disposition determination. Debility - PT/OT. Dysphagia - ST. Pain - Tylenol 650mg q4 prn, Dilaudid 2mg q4h prn pain (6-10) Bowel - senna/colace 2 tablets bid. Adult immunization - Administer pneumonia vaccine, covid vaccine, flu vaccine as appropriate. DVT prophylaxis - Hold, blood tinged trach secretions. Laryngeal cancer - Dr. Frost chemotherapy, Dr. Priest radiation. Coronary artery disease - Coreg 3.125mg bid, Lisinopril 2.5mg daily, Aspirin 81mg daily. Hyperlipidemia - Atorvastatin 40mg qhs. Tobacco abuse - Bupropion 75mg bid, Nicotine patch 21mg td daily. Nutrition - Ensure Plus 120ml 4x/day. Cough - Robitussin 20ml po 4x/day. Rash - HC 2.5% topical bid prn. COPD - Duoneb 3ml tid. Hypomagnesemia - Magnesium chloride 128mg daily. Skin irritation - Calmoseptine topical bid. Hypokalemia KCL 20meq daily. Alcohol abuse - Thiamine 100mg daily. Allergies/Procedures Done in Hospital Allergies No Known Allergies Allergy (Verified 11/23/23 08:51) Procedures: Peg tube placement and - (Trach, port.) Type of Care/Length of Stay Estimated LOS: More Than 30 Days Type of Care Needed: Intermediate Rehab Potential: Poor Prognosis: Poor Additional Orders/Day of Discharge Additional Orders: [facility] Day of Discharge: 12/01/23 Dietary and Speech Recommendations Dietitian Recommendations/Changes: Continue Regular diet with texture/consistency per [employer] to optimize oral intakes. Continue 4 oz ensure clear tid w/ meals for increased nixon/pro if consumed. Continue 120mL Ensure plus high protein 4x daily with medpass to provide supplemental energy. Available for enteral nutrition rec when needed for PEG usage. Follow Up Care Please follow up with your Primary Care Physician in: No PCP Please Follow Up With: MRI When: 1 Month Please Follow Up With: FATOU LAM MD When: 2 Weeks Please Follow Up With: Marivel Cunningham Please Follow Up With: MRI When: 0745 Please Follow Up With: Port insertion Please Follow Up With: Nuclear Stress Test Discharge Plan Admission Admit Date/Time: 10/23/23 17:49 Primary Reason for Your Visit: Debility. Attending Provider: Benny Brian Chi Primary Care Provider: Care Physician,No Primary Instructions Additional Instructions / Restrictions: Discharge to [facility] and rehabilitation, skilled, DME Portable suction device, and Home Oxygen. Oxygen: I have reviewed the oxygen testing, and this patient qualifies for the home equipment and portability. The patient is mobile in the home and the community. 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 Discharge Orders/Prescriptions Prescriptions: New ipratropium-albuterol 0.5 mg-3 mg(2.5 mg base)/3 mL Solution For Nebulization 3 ml inhalation TID.RT Qty: 0 0RF sennosides-docusate sodium [Stool Softener-Stimulant Laxat] 8.6-50 mg Tablet 2 tab PO BID Qty: 0 0RF thiamine HCl (vitamin B1) [Vitamin B-1] 100 mg Tablet 100 mg PO DAILYCM Qty: 0 0RF aspirin 81 mg Tablet,Delayed Release (Dr/Ec) 81 mg PO BREAKFAST Qty: 0 0RF carvedilol 3.125 mg Tablet 3.125 mg PO BID Qty: 0 0RF potassium chloride 20 mEq Tablet,Er Particles/Crystals 20 meq PO DAILYCM Qty: 0 0RF bupropion HCl 75 mg Tablet 75 mg PO BID Qty: 0 0RF lisinopril 2.5 mg Tablet 2.5 mg PO DAILY Qty: 0 0RF magnesium chloride [Mag 64] 64 mg Tablet,Delayed Release (Dr/Ec) 128 mg PO DAILY Qty: 0 0RF menthol-zinc oxide [Calmoseptine] 0.44-20.6 % Ointment 1 applic topical BID Qty: 0 0RF Protocol: *Topical Application Instructions APPLICATION INSTRUCTIONS: Apply to buttock Ensure Plus High Protein 0.08 gram-1.5 kcal/mL Liquid 120 ml PO 4X/DAY Qty: 0 0RF Continued lidocaine-prilocaine 2.5-2.5 % cream 1 applic topical ONCE PRN (Reason: port access) 30 Days Qty: 30 2RF atorvastatin 40 mg Tablet 40 mg PO QHS Qty: 30 2RF acetaminophen 325 mg Tablet 650 mg PO Q4H PRN PRN (Reason: Pain Score 1-10) Qty: 0 0RF nicotine 21 mg/24 hr Patch 24 Hour 21 mg transdermal DAILY 28 Days Qty: 0 0RF Discontinued albuterol sulfate 2.5 mg /3 mL (0.083 %) solution for nebulization 2.5 mg inhalation TID bupropion HCl 75 mg tablet 75 mg PO BID aspirin [Leatha Low Dose Aspirin] 81 mg tablet,delayed release (DR/EC) 81 mg PO DAILY Qty: 30 11RF carvedilol 3.125 mg tablet 3.125 mg PO BID Qty: 60 11RF Rx Instructions: must administer with a meal/food lisinopril 2.5 mg tablet 2.5 mg PO DAILY Qty: 30 11RF ondansetron 4 mg tablet,disintegrating 4 mg PO Q8H PRN (Reason: nausea and vomiting) Qty: 30 1RF enoxaparin [Lovenox] 40 mg/0.4 mL syringe 40 mg subcut DAILY magnesium chloride 64 mg tablet,delayed release (DR/EC) 128 mg PO DAILY potassium chloride 20 mEq tablet extended release 20 meq PO DAILY furosemide 40 mg Tablet 40 mg PO DAILY Qty: 30 2RF thiamine HCl (vitamin B1) [Vitamin B-1] 100 mg Tablet 100 mg PO DAILYCM Qty: 30 2RF lisinopril 5 mg Tablet 5 mg PO DAILY Qty: 30 2RF ipratropium-albuterol 0.5 mg-3 mg(2.5 mg base)/3 mL Solution For Nebulization 3 ml inhalation Q4H PRN (Reason: SOB) Qty: 0 0RF Referrals / Follow Up: Baldemar Frost MD [Med Staff - Active Staff] - Within 1 Week Renan Priest DO [Med Staff - Active Staff] - Within 1 Week Care Physician,Megan Primary [Primary Care Provider] - Nadia Cadena NP, MANAGER [employer]-C [Med Staff - Adv Practice Prof] - 02/02/24 1:15 pm (COPD) Disposition Disposition (needs filled in before D/C Order can be placed): [facility] (10) COPD (chronic obstructive pulmonary disease) Qualifiers: COPD type: unspecified COPD Qualified Code(s): J44.9 - Chronic obstructive pulmonary disease, unspecified
--- NOTE | 2023-11-26 20:21 | CPS ---
water bottle changed
[2023-11-26] MEDS: Atorvastatin Calcium 40 MG Tablet PO (21:09)
[2023-11-26 21:22] VITALS: BP 107/63; PULSE 86
[2023-11-26] MEDS: 0.9% Saline Lock 10 ML Syringe IV (23:41)
[2023-11-27] VITALS (7 sets, daily range): BP systolic 103–113; BP diastolic 65–69; PULSE 86–96; RESP 16–18; TEMP 36.4; O2SAT 95–99
[2023-11-27 05:58] LABS: Absolute Lymphocyte Count 1.16 X10^3/uL (0.83-4.51); Basophil# 0.02 X10^3/uL; Basophil% 0.3 % (0-1); Eosinophil# 0.14 X10^3/uL; Eosinophils% 2.1 % (0-5); Hematocrit 34.4 % (40-54); Hemoglobin 11.6 g/dL (13.0-16.5); Lymphocyte # 1.16 X10^3/ul (0.83-4.51); Lymphocyte % 17.5 % (19-41); Mean Corp Hgb Conc 33.7 g/dL (32-36); Mean Corpuscular Hgb 30.8 pg (27.0-32.0); Mean Corpuscular Volume 91.2 fL (80-94); Mean Platelet Vol. 9.8 fl (6.2-12.0); Monocyte# 0.27 X10^3/uL; Monocyte% 4.1 % (0-10); NRBC Flagged by Analyzer 0 % (0-5); Neutrophil # 5.01 X10^3/uL (2.7-7.7); Neutrophil % 75.5 % (47-70); Platelet Count 346 K/mm3 (150-450); RBC Distribution Width SD 46.9 fl (35.1-43.9); Red Blood Count 3.77 M/mm3 (4.6-6.2); White Blood Count 6.6 K/mm3 (4.4-11.0)
[2023-11-27] MEDS: guaiFENesin 10 ML UDC (200MG/10ML) 20 ML PO ×4 (06:04→20:28)
[2023-11-27 06:29] LABS: Anion Gap 8 (5-15); BUN 12 mg/dL (7-18); BUN/Creat Ratio 29.9 RATIO (10-20); Calcium,Total 8.7 mg/dL (8.5-10.1); Chloride 102 mmol/L (98-107); EST Glomerular Filtration Rate 226 mL/min (>60); Est Glom Filt Rate - Afr Amer 274 mL/min (>60); Estimated Creatinine Clearance 75.86 ml/min; Glucose 98 mg/dL (74-106); Potassium 3.8 mmol/L (3.5-5.1); Sodium Level 134 mmol/L (136-145)
[2023-11-27] MEDS: Ipratropium/Albuterol Sulfate 3 ML AMPUL.NEB INHALATION ×2 (07:10→13:17)
[2023-11-27] MEDS: Thiamine Hydrochloride 100 MG Tablet PO (07:55)
[2023-11-27] MEDS: buPROPion 75 MG Tablet PO ×2 (07:55→20:27)
[2023-11-27] MEDS: Magnesium Chloride 64 MG Delay Rel.Tablet 128 MG PO (07:55)
[2023-11-27] MEDS: Senna/Docusate Sodium 1 Tablet 2 TABLET PO ×2 (07:55→20:28)
[2023-11-27] MEDS: Potassium Chloride Oral Tablet 20 MEQ PO (07:55)
[2023-11-27] MEDS: Aspirin E.C. 81 MG Tablet PO (07:55)
[2023-11-27] MEDS: Menthol/Lanolin/Calamine/Znox 113 GM Tube 1 APPLIC TOPICAL ×2 (07:56→20:26)
[2023-11-27] MEDS: Lisinopril 2.5 MG Tablet PO (10:41)
[2023-11-27] MEDS: Carvedilol 3.125 MG TABLET PO ×2 (10:42→20:29)
[2023-11-27] MEDS: Ensure Plus High Protein 120 ML LIQUID PO ×3 (12:04→20:26)
--- NOTE | 2023-11-27 14:24 | CASEMGMT ---
Social Work SW spoke with Mayte MALLOY regarding suction device. LIAM completed referral to [facility] [place] portable suction device. SHAKIR Cross
[2023-11-27] MEDS: Atorvastatin Calcium 40 MG Tablet PO (20:29)
[2023-11-27] MEDS: 0.9% Saline Lock 10 ML Syringe IV (21:39)
[2023-11-28] MEDS: Ensure Plus High Protein 120 ML LIQUID PO ×4 (05:59→22:19)
[2023-11-28] MEDS: guaiFENesin 10 ML UDC (200MG/10ML) 20 ML PO ×4 (06:00→22:19)
[2023-11-28 07:05] VITALS: PULSE 96; RESP 20; O2SAT 94
[2023-11-28] MEDS: Ipratropium/Albuterol Sulfate 3 ML AMPUL.NEB INHALATION ×2 (07:05→19:11)
[2023-11-28] MEDS: Senna/Docusate Sodium 1 Tablet 2 TABLET PO ×2 (08:33→22:19)
[2023-11-28] MEDS: Menthol/Lanolin/Calamine/Znox 113 GM Tube 1 APPLIC TOPICAL ×2 (08:33→22:19)
[2023-11-28] MEDS: buPROPion 75 MG Tablet PO ×2 (08:33→22:19)
[2023-11-28] MEDS: Magnesium Chloride 64 MG Delay Rel.Tablet 128 MG PO (08:34)
[2023-11-28] MEDS: Thiamine Hydrochloride 100 MG Tablet PO (08:34)
[2023-11-28] MEDS: Carvedilol 3.125 MG TABLET PO ×2 (08:34→22:19)
[2023-11-28] MEDS: Potassium Chloride Oral Tablet 20 MEQ PO (08:35)
[2023-11-28] MEDS: Aspirin E.C. 81 MG Tablet PO (08:35)
[2023-11-28] MEDS: Lisinopril 2.5 MG Tablet PO (08:35)
[2023-11-28 10:00] VITALS: RESP 17
[2023-11-28 13:53] VITALS: BP 100/64; PULSE 96; RESP 16; TEMP 36.6; O2SAT 98
[2023-11-28 19:11] VITALS: PULSE 103; RESP 24
[2023-11-28] MEDS: Atorvastatin Calcium 40 MG Tablet PO (22:19)
[2023-11-28 22:25] VITALS: BP 107/65; PULSE 92; O2SAT 96
--- NOTE | 2023-11-29 03:09 | NURSING ---
Trach care completed this shift. Suctioned multiple times, moderate amount of bloody sputum observed. SpO2: 96% on 7L via trach mask. Denies difficulty/discomfort with breathing.
[2023-11-29] MEDS: Ensure Plus High Protein 120 ML LIQUID PO ×4 (06:24→22:35)
[2023-11-29] MEDS: guaiFENesin 10 ML UDC (200MG/10ML) 20 ML PO ×4 (06:24→22:35)
[2023-11-29 07:02] VITALS: PULSE 95; RESP 20; O2SAT 95
[2023-11-29] MEDS: Ipratropium/Albuterol Sulfate 3 ML AMPUL.NEB INHALATION ×3 (07:02→18:57)
[2023-11-29] MEDS: Carvedilol 3.125 MG TABLET PO ×2 (09:22→22:35)
[2023-11-29] MEDS: buPROPion 75 MG Tablet PO ×2 (09:22→22:34)
[2023-11-29] MEDS: Senna/Docusate Sodium 1 Tablet 2 TABLET PO ×2 (09:22→22:34)
[2023-11-29] MEDS: Potassium Chloride Oral Tablet 20 MEQ PO (09:22)
[2023-11-29] MEDS: Lisinopril 2.5 MG Tablet PO (09:23)
[2023-11-29] MEDS: Aspirin E.C. 81 MG Tablet PO (09:23)
[2023-11-29] MEDS: Menthol/Lanolin/Calamine/Znox 113 GM Tube 1 APPLIC TOPICAL ×2 (09:23→22:35)
[2023-11-29] MEDS: Magnesium Chloride 64 MG Delay Rel.Tablet 128 MG PO (09:23)
[2023-11-29] MEDS: Thiamine Hydrochloride 100 MG Tablet PO (09:24)
--- NOTE | 2023-11-29 11:37 | NURSING ---
Pt. off Unit for radiation treatment.
--- NOTE | 2023-11-29 12:16 | NURSING ---
pt returned to unit
[2023-11-29 13:10] VITALS: PULSE 80; RESP 19
[2023-11-29 13:32] VITALS: BP 112/74; PULSE 90; RESP 18; TEMP 36.4; O2SAT 97
[2023-11-29 18:57] VITALS: PULSE 105; RESP 22
[2023-11-29 20:45] VITALS: PULSE 100; O2SAT 95
[2023-11-29] MEDS: Atorvastatin Calcium 40 MG Tablet PO (22:35)
[2023-11-30] MEDS: Ensure Plus High Protein 120 ML LIQUID PO ×4 (05:37→20:29)
[2023-11-30] MEDS: guaiFENesin 10 ML UDC (200MG/10ML) 20 ML PO ×4 (05:37→20:35)
[2023-11-30 07:04] VITALS: PULSE 91; RESP 20
[2023-11-30] MEDS: Ipratropium/Albuterol Sulfate 3 ML AMPUL.NEB INHALATION ×2 (07:04→18:47)
--- NOTE | 2023-11-30 10:24 | CASEMGMT ---
Addendum entered by Jonah Gonzalez 11/30/23 15:55: LIAM received confirmation from [facility] that portable suction device will be delivered in the AM. Original Note: Social Work LIAM contacted [facility] Rep. Nieves to follow up regarding referral for portable suction device. Nieves informed LIAM that she is awaiting follow up from team to ensure all necessary documents were provided for portable suction device approval. Nieves informed LIAM that she will follow up with LIAM if additional clinicals are required. Otherwise, DME will be delivered at bedside prior to discharge. LIAM spoke with daughter, Georgina to review discharge. LIAM informed Georgina that [facility] has been consulted for portable suction device; awaiting approval. Georgina inquired about oxygen for transport. LIAM informed Georgina that a request for portable oxygen will be discussed with [facility]. Georgina inquired about wheelchair being ordered. LIAM informed Georgina that [facility] will provide wheelchair at facility. Nursing staff will support in providing wheelchair to help patient transfer to car on discharge. Georgina informed LIAM that she will provide transport to [facility] post radiation. LIAM contacted [facility] to provide updates regarding discharge plans. Updated clinicals provided for discharge. LIAM will continue to monitor to support discharge. Discharge: SNF- [facility]; [employer] portable suction device. oxygen requested for transport SHAKIR Cross
--- NOTE | 2023-11-30 11:37 | NURSING ---
Pt to D/C 11/30 W/ one of our portable O2 tanks, Family is to return tank same day or at the latest Wed 12/01- Shahzad Ledesma made aware and approved of.
[2023-11-30] MEDS: Potassium Chloride Oral Tablet 20 MEQ PO (14:31)
[2023-11-30] MEDS: Magnesium Chloride 64 MG Delay Rel.Tablet 128 MG PO (14:32)
[2023-11-30] MEDS: Senna/Docusate Sodium 1 Tablet 2 TABLET PO ×2 (14:33→20:35)
[2023-11-30] MEDS: Aspirin E.C. 81 MG Tablet PO (14:33)
[2023-11-30] MEDS: Carvedilol 3.125 MG TABLET PO ×2 (14:33→20:34)
[2023-11-30] MEDS: Thiamine Hydrochloride 100 MG Tablet PO (14:34)
[2023-11-30] MEDS: Lisinopril 2.5 MG Tablet PO (14:34)
[2023-11-30] MEDS: buPROPion 75 MG Tablet PO ×2 (14:34→20:36)
[2023-11-30] MEDS: Menthol/Lanolin/Calamine/Znox 113 GM Tube 1 APPLIC TOPICAL ×2 (14:36→20:29)
--- NOTE | 2023-11-30 14:44 | CASEMGMT ---
Social Work SW attempted to meet with patient at bedside to complete MDS. Patient requested for SW to return after lunch. SW to follow to complete MDS. SHAKIR Cross
--- NOTE | 2023-11-30 15:51 | CASEMGMT ---
Social Work SW completed discharge MDS; BIM and PHQ-2 (00) SHAIKR Cross
[2023-11-30 16:00] VITALS: BP 110/72; PULSE 91; RESP 18; TEMP 36.3; O2SAT 98
[2023-11-30 18:48] VITALS: PULSE 87; RESP 20
[2023-11-30 20:30] VITALS: BP 115/72; PULSE 94
[2023-11-30] MEDS: Atorvastatin Calcium 40 MG Tablet PO (20:34)
[2023-12-01 00:49] VITALS: PULSE 85; O2SAT 95
[2023-12-01] MEDS: Ensure Plus High Protein 120 ML LIQUID PO (05:17)
[2023-12-01] MEDS: guaiFENesin 10 ML UDC (200MG/10ML) 20 ML PO (05:18)
[2023-12-01 07:18] VITALS: PULSE 85; RESP 20
[2023-12-01] MEDS: Ipratropium/Albuterol Sulfate 3 ML AMPUL.NEB INHALATION (07:18)
[2023-12-01] MEDS: Menthol/Lanolin/Calamine/Znox 113 GM Tube 1 APPLIC TOPICAL (08:04)
[2023-12-01] MEDS: Aspirin E.C. 81 MG Tablet PO (08:04)
[2023-12-01] MEDS: Potassium Chloride Oral Tablet 20 MEQ PO (08:04)
[2023-12-01] MEDS: Carvedilol 3.125 MG TABLET PO (08:05)
[2023-12-01] MEDS: Thiamine Hydrochloride 100 MG Tablet PO (08:05)
[2023-12-01] MEDS: Magnesium Chloride 64 MG Delay Rel.Tablet 128 MG PO (08:05)
[2023-12-01] MEDS: Senna/Docusate Sodium 1 Tablet 2 TABLET PO (08:06)
[2023-12-01] MEDS: buPROPion 75 MG Tablet PO (08:06)
[2023-12-01] MEDS: Lisinopril 2.5 MG Tablet PO (08:07)
[2023-12-01 08:17] VITALS: BP 112/71; PULSE 95; RESP 16; TEMP 37.2
== END 2023-12-01 11:21 | disposition skilled nursing facility (03) | DRG 146 ==
PROVIDERS: Internal Medicine; Admitting Provider Family Medicine Geriatric Medicine; Referring Provider Family Medicine Geriatric Medicine; Visit Provider Family Medicine Geriatric Medicine
DX: C32.9 Malignant neoplasm of larynx, unspecified (principal); E43 Unspecified severe protein-calorie malnutrition; J95.821 Acute postprocedural respiratory failure; I42.6 Alcoholic cardiomyopathy; I50.22 Chronic systolic (congestive) heart failure; Z68.1 Body mass index [BMI] 19.9 or less, adult; Z93.0 Tracheostomy status; E83.39 Other disorders of phosphorus metabolism; J44.9 Chronic obstructive pulmonary disease, unspecified; F10.20 Alcohol dependence, uncomplicated; Z93.1 Gastrostomy status; E78.00 Pure hypercholesterolemia, unspecified; F17.210 Nicotine dependence, cigarettes, uncomplicated; E83.42 Hypomagnesemia; F10.10 Alcohol abuse, uncomplicated; I25.10 Atherosclerotic heart disease of native coronary artery without angina pectoris; Z95.828 Presence of other vascular implants and grafts; Z79.899 Other long term (current) drug therapy; R13.12 Dysphagia, oropharyngeal phase; Y83.8 Other surgical procedures as the cause of abnormal reaction of the patient, or of later complication, without mention of misadventure at the time of the procedure
CPT/HCPCS: 31720; 36415; 71046; 77386; 80048; 80053; 83735; 84100; 84443; 85025; 85027; 87811; 92526; 92610; 94640; 97110; 97116; 97162; 97166; 97530; 97535; 99406; J7120; A4216

== ENCOUNTER → 2023-11-13 | Outpatient (CLI) | payer MEDICARE, SELFPAY ==
--- NOTE | 2023-11-13 07:35 | MRI_ITS ---
STUDY: MRI THORACIC SPINE WITH AND WITHOUT CONTRAST REASON FOR EXAM: Male, 68 years old. 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 IV 14cc Clariscan was administered for the contrast portion of the examination. COMPARISON: PET CT November 03, 2023 FINDINGS: Normal kyphosis of the thoracic spine. There is no substantial scoliosis. There is increased T2 signal and enhancement of the T6 vertebra with compression fracture and 30% loss of height of the inferior endplate. There is signal alteration and enhancement enhancement extending to the left pedicle and paraspinal soft tissues. T1-2, T2-3, T3-4, T4-5, T5-6, T6-7, T9-10, T10-11: Normal endplates. Normal disc hydration, heights and morphology of the corresponding intervertebral discs. Normal central canal and intervertebral neural foramina at the corresponding levels. T7-8, right paracentral disc protrusion. No canal stenosis. Neural foramina are patent. T8-9, right paracentral disc protrusion. No canal stenosis. Neural foramina are patent. T11-12, left paracentral disc protrusion. Neural foramina are patent. Normal visualized thoracic cord. Normal conus medullaris that terminates at the L1 level. MRI/Spine Thoracic W/WO Contrast IMPRESSION: T6 compression fracture with edema and enhancement and potential pathologic fracture. Disc herniations of the lower thoracic spine. Electronically Signed: José Miguel Zimmerman MD at 10:35 EDT ,
== END | disposition home or self-care (01) ==
PROVIDERS: Referring Provider Student in an Organized Health Care Education/Training Program; Visit Provider Student in an Organized Health Care Education/Training Program
DX: C32.9 Malignant neoplasm of larynx, unspecified (principal)
CPT/HCPCS: 72157; A9575; A4216

== ENCOUNTER → 2023-11-17 | Outpatient (CLI) | payer MEDICARE, SELFPAY ==
--- NOTE | 2023-11-17 09:30 | NM_ITS ---
CLINICAL: 68-year-old male with history of head and neck carcinoma and thoracic spine compression fracture. WHOLE BODY 99m Tc MDP RADIONUCLIDE BONE SCINTIGRAPHY COMPARISON: MRI of the thoracic spine report 11/13/2023, FDG PET CT study dated 11/03/2023 FINDINGS: Following the intravenous administration of 25.5 mCi of 99m Tc MDP, whole body bone images reveal: 1. Increased radiopharmaceutical concentration is defined in the seventh thoracic vertebra corresponding to trauma-compression fracture defined on MRI of the thoracic spine dated 11/13/2023. Additionally uptake correlates with the findings demonstrated on FDG PET CT imaging dated 11/02/2013. 2. Enhanced uptake is noted in the bilateral wrists, the acromioclavicular, lateral glenohumeral and sternoclavicular compartments of both shoulders, the posterior midline sacrum, mid cervical spine posteriorly on the left. 3. The remaining skeletal structures are scintigraphically unremarkable with normal-appearing renal images and urinary bladder activity identified. NM/Bone Scan Whole Body IMPRESSION: 1. The increase in radiopharmaceutical concentration identified in the seventh thoracic vertebra is commensurate with trauma-compression fracture. Pathologic fracture is not excluded. 2. Degenerative arthritis is demonstrated in the bilateral wrists, the cervical spine and sacrum, both shoulder articulations. 3. There is no definitive scintigraphic evidence of diffuse multifocal skeletal metastatic disease on the current examination. Electronically Signed: Shahzad Valdes DO at 14:23 EDT ,
== END | disposition home or self-care (01) ==
PROVIDERS: Referring Provider Internal Medicine Medical Oncology; Visit Provider Internal Medicine Medical Oncology
DX: C32.9 Malignant neoplasm of larynx, unspecified (principal); R93.89 Abnormal findings on diagnostic imaging of other specified body structures
CPT/HCPCS: 78306; A9503

== ENCOUNTER 2023-11-19 09:15 | Day surgery (SDC) | payer MEDICARE, SELFPAY ==
[2023-11-19] VITALS (9 sets, daily range): BP systolic 98–118; BP diastolic 63–87; PULSE 78–108; RESP 16–20; TEMP 36.4–36.7; O2SAT 2–100; BMI 19.5
[2023-11-19] MEDS: Lactated Ringers 1,000 ML 15 ML IV (09:39)
--- NOTE | 2023-11-19 09:56 | PCM.PRE.AN2 ---
ASA Classification* ASA Classification ASA Classification: 2 Assessment & Plan Anesthesia* Anesthesia Assessment Anesthesia Assessment: Discussed sedation and/or anesthesia options, risks, benefits, and alternatives with patient/parents/legal guardian/POA. Questions invited. The patient/parents/legal guardian/POA seems to understand and agrees to proceed with anesthesia plan. Reviewed the physical assessment, medical history, allergy history and patient home medications list prior to surgery/procedure/anesthetic and documented any changes. Performed airway and anesthesia risk assessments. 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 When Was Last Pacemaker Check QUESTION #4 FULL TEXT: You/Your Family Experience fever (hyperthermia) with Anesthesia Last Oral Intake Last Oral intake: Last Oral Intake NPO since 00:00 11/19/23 09:47 Meds taken in AM with sips of water? Meds patient instructed to take am of surgery PONV PONV - utility mechanic supervisor: PONV - utility mechanic supervisor Female No 11/18/23 09:22 HX of Motion Sickness No 11/18/23 09:22 HX of N/V After Surgery No 11/18/23 09:22 Non-Smoker Yes 11/18/23 09:22 Duration of Surgery greater Yes 11/18/23 09:22 than 60 minutes Number of Risk Factors 2 11/18/23 09:22 PONV Score Moderate Risk 11/18/23 09:22 Height & Weight Height & Weight: Anesthesia: Height & Weight Height 5 ft 9 in 11/19/23 09:47 Weight: 59.874 kg 11/19/23 09:47 Body Mass Index (BMI) 19.5 11/19/23 09:47 Respiratory Assessment Respiratory Assessment - utility mechanic supervisor: Respiratory Tract Infection Hx - utility mechanic supervisor Hx Respiratory Tract Infection No 11/18/23 09:22 STOP Sleep Apnea STOP Sleep Apnea - utility mechanic supervisor: STOP Sleep Apnea - utility mechanic supervisor Hx Hypertension Yes 11/18/23 09:22 Hx Sleep Apnea No 11/18/23 09:22 CPAP BIPAP Do you snore loudly (louder No 11/18/23 09:22 than talking or can be heard Do you often feel tired/ No 11/18/23 09:22 fatigued/ sleepy during daytime? Has anyone observed you stop No 11/18/23 09:22 breathing during sleep? STOP Results Negative 11/18/23 09:22 QUESTION #5 FULL TEXT : Do you snore loudly (louder than talking or can be heard through closed doors)? 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 Specify any problems Hx of Preganancy in last 3 N/A 11/18/23 09:22 Months Nurse Filling Out Transfusion NBUCHER 11/18/23 09:22 & Questions: Date: 11/18/23 11/18/23 09:22 Time: 11/18/23 09:22 Patient unable to answer at this time (ie. confused, unrespo /Reproduction History /Reproductive History - utility mechanic supervisor: /Reproductive Hx- utility mechanic supervisor Hx Now No 11/18/23 09:22 Gestational Age (in weeks): EDC: Hx Hx Para Hx Section SAB No 11/18/23 09:22 Active Medications Active Medications: Current Medications Generic Name Dose Route Start Last Admin Trade Name Clarissa PRN Reason Stop Dose Admin Cefazolin Sodium 2 gm/ Sodium 110 mls @ 150 mls/hr 11/19/23 11:00 Chloride IV 11/19/23 11:43 PREOP ONE Lactated Ringer's 1,000 mls @ 15 mls/hr 11/19/23 09:30 11/19/23 09:39 IV 15 mls/hr .Q48H IKER Administration Anesthesia Focused Assessment* Temperature: 97.9 F Pulse Rate: 78 Blood Pressure: 103/63 Respiratory Rate: 18 Pulse Ox: 98 Oxygen Flow Rate (L/min): 2 Airway Assessment Mouth opens: >3 cm Mallampati Score: III Focused Labs Anesthesia Preop lab: CBC WBC 6.0 K/mm3 (4.4-11.0) 11/13/23 05:30 RBC 3.83 M/mm3 (4.6-6.2) L 11/13/23 05:30 Hgb 11.8 g/dL (13.0-16.5) L 11/13/23 05:30 Hct 35.3 % (40-54) L 11/13/23 05:30 Plt Count 344 K/mm3 (150-450) 11/13/23 05:30 CHEMISTRY Potassium 3.7 mmol/L (3.5-5.1) 11/13/23 05:30 Sodium 136 mmol/L (136-145) 11/13/23 05:30 Magnesium 1.9 mg/dL (1.6-2.6) 10/24/23 06:23 Phosphorus 3.2 mg/dL (2.5-4.9) 10/27/23 05:08 BUN 7 mg/dL (7-18) 11/13/23 05:30 Creatinine 0.36 mg/dL (0.70-1.30) L 11/13/23 05:30 Glucose 100 mg/dL (74-106) 11/13/23 05:30 TSH 2.57 uIU/mL (0.358-3.74) 11/13/23 05:30 COAG PT 13.0 SECONDS (11.7-14.9) 10/08/23 20:15 Review of Systems (Anesthesia) ROS Narrative System reviewed and no additional complaints, except as documented. [facility] Medical History CHF exacerbation Debility Chronic HFrEF (heart failure with reduced ejection fraction) Hyperlipidemia Laryngeal squamous cell carcinoma Cardiomyopathy Laryngeal mass Tobacco abuse Alcoholism Agoraphobia Medical non-compliance Alcohol abuse Acute hypoxic respiratory failure Esophageal mass Wears dentures Wears glasses Cardiology follow-up encounter Difficulty swallowing Smoker High cholesterol COPD (chronic obstructive pulmonary disease) History of CHF (congestive heart failure) Home Medications ?Medication ?Instructions ?Recorded ?Last Taken ?Type atorvastatin 40 mg tablet 40 mg PO QHS Cholesterol #30 tabs 10/15/23 10/14/23 Rx furosemide 40 mg tablet 40 mg PO DAILY Fluid retention #30 10/15/23 Unknown Rx tabs lisinopril 5 mg tablet 5 mg PO DAILY BP #30 tabs 10/15/23 10/15/23 Rx thiamine HCl (vitamin B1) 100 mg 100 mg PO DAILYCM Supplement #30 10/15/23 10/14/23 Rx tablet (Vitamin B-1) tabs acetaminophen 325 mg tablet 650 mg (2 x 325 mg) PO Q4H PRN PRN 10/23/23 Unknown Rx Pain Score 1-10 #0 tabs ipratropium 0.5 mg-albuterol 3 mg 3 ml inhalation Q4H PRN SOB #0 mL 10/23/23 10/23/23 11:10 Rx (2.5 mg base)/3 mL nebulization soln nicotine 21 mg/24 hr daily 21 mg transdermal DAILY smoking 10/23/23 10/23/23 09:50 Rx transdermal patch days #0 ea albuterol sulfate 2.5 mg/3 mL 2.5 mg inhalation TID 11/12/23 Unknown History (0.083 %) solution for nebulization aspirin 81 mg tablet,delayed 81 mg PO DAILY #30 tabs 11/12/23 Unknown Rx release (Leatha Low Dose Aspirin) bupropion HCl 75 mg tablet 75 mg PO BID 11/12/23 Unknown History carvedilol 3.125 mg tablet 3.125 mg PO BID #60 tabs 11/12/23 Unknown Rx lisinopril 2.5 mg tablet 2.5 mg PO DAILY #30 tabs 11/12/23 Unknown Rx enoxaparin 40 mg/0.4 mL 40 mg subcut DAILY 11/16/23 Unknown History subcutaneous syringe (Lovenox) magnesium chloride 64 mg 128 mg PO DAILY 11/16/23 Unknown History (magnesium chloride) tablet,delayed release potassium chloride 20 mEq 20 meq PO DAILY 11/16/23 Unknown History tablet,extended release lidocaine-prilocaine 2.5 %-2.5 % 1 applic topical ONCE PRN port 11/17/23 Unknown Rx topical cream access 30 days #30 grams ondansetron 4 mg disintegrating 4 mg PO Q8H PRN nausea and 11/17/23 Unknown Rx tablet vomiting #30 tabs Allergy/AdvReac Type Severity Reaction Status Date / Time No Known Allergies Allergy Verified 11/18/23 09:18 Family History Father Pacemaker Surgical History History of tracheostomy History of laryngoscopy History of surgery Social History household members: none current occupational status: retired Smoking Status: Former smoker alcohol intake: current alcohol intake frequency: 3 or more drinks per day Alcohol type: beer details: 6 24 ounce cans of beer daily. substance use type: does not use caffeine: Yes Type: coffee
[2023-11-19] MEDS: Cefazolin 2 GM in 0.9% Normal Saline (100mL Bag) 100 ML IV (10:26)
--- NOTE | 2023-11-19 10:30 | HP.PCM_ITS ---
History and Physical Date of Admission: 11/19/23 Date of Service: 11/16/23 MR#: [id number] Acct: [id number] Name: CHACORTA BARKLEY Rep #: [id number] : 1955 Provider: Dr. Carlito Barkley MD Age/Sex: 68/M Location: [facility] Status: Signed Intake Vital Signs 11/10/2408:44 11/11/2409:01 11/15/2409:34 Height 5 ft 9 in 5 ft 9 in 5 ft 9 in Weight: 130 lb BMI 19.2 BP 117/72 Blood Pressure Location Lt brachial Position Sitting Respiration 18 Pulse 91 Pulse Source Monitor Pulse Oximetry (%) 98 Oxygen Delivery Method nasal canula Oxygen Flow Rate (L/min) 2 Intake Visit Reasons: PORT PLACEMENT Chief Complaint: port placement Is patient in pain?: No Allergies No Known Allergies Allergy (Verified 11/16/23 10:36) Medications ?Medication ?Instructions ?Recorded ?Confirmed ?Type atorvastatin 40 mg tablet 40 mg PO QHS Cholesterol #30 tabs 10/15/23 11/16/23 Rx furosemide 40 mg tablet 40 mg PO DAILY Fluid retention #30 10/15/23 11/11/23 Rx tabs lisinopril 5 mg tablet 5 mg PO DAILY BP #30 tabs 10/15/23 11/11/23 Rx thiamine HCl (vitamin B1) 100 mg 100 mg PO DAILYCM Supplement #30 10/15/23 11/16/23 Rx tablet (Vitamin B-1) tabs acetaminophen 325 mg tablet 650 mg (2 x 325 mg) PO Q4H PRN PRN 10/23/23 11/16/23 Rx Pain Score 1-10 #0 tabs ipratropium 0.5 mg-albuterol 3 mg 3 ml inhalation Q4H PRN SOB #0 mL 10/23/23 11/16/23 Rx (2.5 mg base)/3 mL nebulization soln nicotine 21 mg/24 hr daily 21 mg transdermal DAILY smoking 28 10/23/23 11/16/23 Rx transdermal patch days #0 ea albuterol sulfate 2.5 mg/3 mL 2.5 mg inhalation TID 11/12/23 11/16/23 History (0.083 %) solution for nebulization aspirin 81 mg tablet,delayed 81 mg PO DAILY #30 tabs 11/12/23 11/16/23 Rx release (Leatha Low Dose Aspirin) bupropion HCl 75 mg tablet 75 mg PO BID 11/12/23 11/16/23 History carvedilol 3.125 mg tablet 3.125 mg PO BID #60 tabs 11/12/23 11/16/23 Rx lisinopril 2.5 mg tablet 2.5 mg PO DAILY #30 tabs 11/12/23 11/16/23 Rx enoxaparin 40 mg/0.4 mL 40 mg subcut DAILY 11/16/23 11/16/23 History subcutaneous syringe (Lovenox) magnesium chloride 64 mg 128 mg PO DAILY 11/16/23 11/16/23 History (magnesium chloride) tablet,delayed release potassium chloride 20 mEq 20 meq PO DAILY 11/16/23 11/16/23 History tablet,extended release PFSH Medical History CHF exacerbation Debility Chronic HFrEF (heart failure with reduced ejection fraction) Hyperlipidemia Laryngeal squamous cell carcinoma Cardiomyopathy Laryngeal mass Tobacco abuse Alcoholism Agoraphobia Medical non-compliance Alcohol abuse Acute hypoxic respiratory failure Esophageal mass Wears dentures Wears glasses Cardiology follow-up encounter Difficulty swallowing Smoker High cholesterol COPD (chronic obstructive pulmonary disease) History of CHF (congestive heart failure) Surgical History History of tracheostomy History of laryngoscopy History of surgery Family History Father Pacemaker Social History household members: none current occupational status: retired Smoking Status: Former smoker alcohol intake: current alcohol intake frequency: 3 or more drinks per day Alcohol type: beer details: 6 24 ounce cans of beer daily. substance use type: does not use caffeine: Yes Type: coffee HPI HPI HPI: Patient is a 68-year-old male who presents for consideration of port placement. Patient was diagnosed with laryngeal squamous cell carcinoma on 10/19/2023 after laryngeal biopsy and tracheostomy. Apparently patient has had vocal changes for the past 1 year preceding this evaluation. They have met with oncology and plans are to begin chemotherapy 11/23/2023 with radiation. He presents today with his daughter and he presents directly from his stay on the transitional care unit where his daughter states he has been granted a additional 28-day stay. She shares that he is awaiting approval for an LTAC given his care needs. Patient has no prior history of central line placement. Patient has no pacemaker or intracardiac defibrillator. Patient has not renal dysfunction and are not on hemodialysis. Patient denies any history of staph or cutaneous infections. Mr. Barkley initially denies any swallowing difficulty, but later in the interview patient's daughter shares that he is having a hard time with some medications?notably potassium supplements. Despite being on a regular diet they share that he has lost approximately 15 pounds since his admission in September. A feeding tube has thus been discussed, but patient is very hesitant. His daughter states that she favors proceeding with a feeding tube. Patient has no history of abdominal surgery. Mr. Barkley is currently prescribed both Lovenox and aspirin during his TCU stay. ROS General General: Yes weight change and fatigue; No appetite, colon cancer, breast cancer or weakness HEENT HEENT: Yes difficulty swallowing; No eye injury, eye surgery, swollen glands or hoarseness Endo Endocrine: No thyroid disease, diabetes mellitus, thyroid cancer, Hair loss, heat intolerance or cold intolerance Skin Skin: Yes rash; No changing moles Musc Musculoskeletal: No back problems, arthritis, rheumatoid arthritis, gout or joint pain Cardio Cardiovascular: No murmur, pacemaker, heart disease, atrial fibrillation, high blood pressure, heart attack, heart stent, palpitations, shortness of breat with exertion or chest pain Psych Psychiatric: Yes anxiety; No depression or hearing voices Resp Respiratory: Yes shortness of breath, No sleep apnea, Yes cough, Yes COPD, No asthma, No emphysema and No wheezing Gastro Gastrointestinal: No abdominal pain, No nausea or vomiting, No diarrhea, No constipation, No blood in stool, No acid reflux, No hemorrhoids, No ulcers, No gallbladder problem and No black,tarry stools Christoph Hematologic: Yes blood thinners, No blood disorders, No bleeding, No anemia and No blood clots Additional Details: Lovenox 40mg qd Neuro Neurologic: No system reviewed and no additional complaints, except as documented, No as per HPI, No abnormal gait, No abnormal hearing, No abnormal movements, No abnormal speech, No behavioral changes, No burning sensations, No confusion, No convulsions, No disequilibrium, No dizziness, No localized weakness, No frequent falls, No headache(s), No lack of coordination, No loss of vision, No memory loss, No numbness, No other visual disturbances, No radicular pain, No restless legs, No sensory deficit, No syncope, No tingling, No tremor(s), No weakness and No other Exam Const General: cooperative Nutritional Appearance: underweight Orientation: alert, awake and oriented x3 Other: Patient communicates nonverbally as he states he has been given a speaking valve but coughed too much. His communication is appropriate Chest Other: Scaly appearance of anterior chest wall and given dryness of the skin. No rashes or cutaneous infections. No scars. Resp Effort & Inspection: normal respiratory effort GI Other: Slender, nondistended, no scars, soft, nontender to palpation x 4 quadrants Assessment and Plan Assessment and Plan (1) Encounter for insertion of venous access port: Status: Acute Comment: Patient is a 68-year-old male due to imminently start chemoradiation therapy for treatment of newly diagnosed laryngeal cancer. I find no contraindication to insertion of a vascular port and shared with both patient and his daughter the m erits of port placement as well as the inherent risks. Specifically, I highlighted the risk of bacteremia and endocarditis and the need to avoid risk for infection is much as possible. Both patient and his daughter are appreciative of this conversation and wished to proceed as planned. Plan: Right, possible left internal jugular ultrasound and fluoroscopic guided i nsertion of Port-A-Cath placement (2) Severe protein-calorie malnutrition: Status: Acute Comment: Patient with severe protein calorie malnutrition despite denials of dysphagia and confirming that he is on a regular diet. I have discussed with patient that he simply does not have physiologic reserve to continue to lose weight and stand up to the treatment proposed. Thus, I do favor placement of a PEG tube concurrent with his port placement. I shared that while the PEG tube is externally removable it would not be advisable to do so before 6 weeks after an operation. Patient initially reluctant, but upon hearing my description and pleading from his daughter he appears to be inclined to proceed. Plan: PEG tube to be planned concurrent with right possible left Port-A-Cath (3) Laryngeal squamous cell carcinoma: Status: Chronic Comment: Laryngeal cancer-squamous cell carcinoma, cT3 cN0 s/p tracheostomy. Discussed therapy with chemotherapy and Radiation for voice preservation. Pt agrees to proceed. Pt has CHF with low EF so will use Taxol/Carboplatin weekly instead of Cisplatin. Plan: Port-A-Cath and PEG tube as above. Patient will need to hold his Lovenox 24 hours prior to procedure. An order has been written for this to occur. Patient was seen and examined. Denies any health changes in the short interval since our visit together. Does confirm that Lovenox was held for the procedure. Procedure expectations were reviewed with patient and his family was present in the room. Ultimately plan for return to TCU and keep the PEG tube to gravity for 24 hours before clamping and use/initiation of p.o. intake. Proceed to the OR today now for right possible left Port-A-Cath placement as well as PEG tube.
[2023-11-19] MEDS: Bupiv/Epi 0.25% 30 ML Vial (10:56)
--- NOTE | 2023-11-19 12:28 | OP.PCM_ITS ---
Report of Operation Date of Procedure: 11/19/23 Pre-Operative Diagnosis: Laryngeal cancer requiring neoadjuvant chemoradiation as well as severe protein calorie malnutrition Post-Operative Diagnosis: Same Surgery/Procedure Performed:: 1. Ultrasound and fluoroscopic guided placement of right internal jugular Port-A-Cath 2. Percutaneous endoscopic gastrostomy Surgeon: Carlito Barkley color maker: None Anesthesiologist: Wali Wayne Specimen's removed: None Estimated Blood Loss (mL): 10 Description of Procedure: After appropriate identification in the preoperative holding area the patient was brought to the operating room. There he was administered preoperative antibiotics and positioned supine on the operating room table. Once sedation was begun, the upper chest and lower cervical region were prepped and draped in usual sterile fashion. A formal timeout was then conducted to confirm both the patient and procedure. Ultrasound was used to localize the right internal jugular vein. Then a wheal of 0.25% bupivacaine plain was raised superficially in this location and the vein was accessed under direct ultrasound guidance using a Seldinger technique and standard 035 guidewire. The position of the guidewire was confirmed with fluoroscopy. Next the position of the port pocket was determined and again local anesthetic was used to anesthetize the area of both the pocket and the tunneling cephalad. A transverse incision 3 cm in width was made down through the subcutaneous tissue. Selective electrocautery was used to obtain hemostasis. Then with blunt dissection the port pocket was developed. The catheter was connected to the tunneler and was tunneled up to the position of the guidewire. Here the dilator and peel-away sheath were placed over the guidewire and the guidewire was removed. Position was again confirmed with fluoroscopy. The catheter length was estimated based on the external placement of a hemostat to approximate the level of the annette and the cavoatrial junction. The catheter was then fed into the sheath and slowly the sheath was peeled away as the catheter was inserted fully into the neck. Back in the chest the excess catheter was trimmed and the port was connected to the catheter. The port was tied into the pocket using 3-0 Vicryl. Function was then tested using sterile saline on a Yusuf needle. It was locked with 3.0 mL of heparinized saline (concentration 50U/5mL). The port pocket was closed with a deep dermal stitch using a running 3-0 Vicryl followed by 4-0 Monocryl subcuticular stitch. The 1 cm incision in the neck was closed with a single interrupted subcuticular stitch using 4-0 Monocryl. Dermabond was applied as a dressing. We then transition to the percutaneous gastrostomy portion of the case. A repeat timeout was conducted to confirm this transition. Then A standard gastroscope was introduced through the mouth. The esophagus stomach and duodenum were briefly examined and photos were taken (available in probation). There was evidence of mild inflammation in the duodenal bulb noted with this exam. The anterior gastric wall was examined with the endoscope and there was immediate transillumination to the anterior abdominal wall. I then identified a spot in the gastric body that transilluminated to the left upper abdominal quadrant and there was 1-1 palpation with visualization on the gastroscope. This area was marked and then prepped with our kit chlorhexidine swabs. 1% lidocaine was used to anesthetize the skin and during this injection I began back aspirating on the syringe as the needle was advanced into the abdominal wall. We were able to assure that there was air in the syringe at the same time the needle was visualized within the stomach indicating no interposed anatomic structures. With these safety checks, a stab incision was made in the abdominal wall and our finder needle and sheath were placed in this location. The wire was fed through that sheath and a snare was inserted through the gastroscope to snare the wire coming into the stomach. Then the wire was withdrawn back through the mouth and looped onto the patient's new feeding tube. At this point, the patient's orogastric tube was removed to provide room for the remainder of the procedure. The feeding tube, itself, was snared and the whole ensemble was pulled in antegrade fashion back into the stomach. The gastroscope was able to confirm apposition of the bumper to the gastric wall internally. Then the patient's feeding tube was assembled with the outer bumper snugged against the anterior abdominal wall, bilateral by the clip and lastly the gap. The outer bumper resides at approximately 4 cm from the skin and this was alvarado tured in place at the abdominal wall with a 2-0 Prolene suture to prevent migration during tract maturation. The insertion site was cleansed and a dressing sponge was fitted around the tube. This concluded the procedure and the patient was then aroused from the sedation and taken to PACU for ongoing recovery were a portable chest x-ray was obtained to confirm port positioning and exclude any pneumothorax. Grafts/Implants Used: PowerPort ISP MRI implantable, ref [id number], Lot [id number] Complications None Admit VTE Documentation VTE Mechan Device Prophylaxis: SCD's
--- NOTE | 2023-11-19 12:45 | RAD_ITS ---
STUDY: X-RAY CHEST REASON FOR EXAM: Male, 68 years old. Status post line placement TECHNIQUE: Single AP portable view of the chest. COMPARISON: Comparison is made with prior study dated November 12, 2023. FINDINGS: A tracheostomy is in situ. The tip is at 6.5 cm proximal to the annette. A right-sided Port-A-Cath has been placed with the tip in the proximal portion of the superior vena cava. Hyperinflation. The lungs are clear. There is no demonstrated pleural abnormality. Normal size heart. Normal mediastinum and shama. Normal visualized pulmonary arteries. Normal visualized aortic arch and descending thoracic aorta. There are diffuse degenerative changes of the visualized thoracic spine. Normal visualized ribs, clavicles, and shoulders. There is no demonstrated abnormality of the visualized soft tissue structures of the upper abdomen. RAD/CXR for Line Placement IMPRESSION: Hyperinflation. The lungs are clear. The tip of the right portacatheter is in the midportion of the superior vena cava. Electronically Signed: Patrice Lehman MD at 15:06 EDT ,
--- NOTE | 2023-11-19 12:50 | PCM.POST.ANE ---
Anesthesia: Postop Eval I Current Vital Signs Temperature: 97.5 F Pulse Rate: 97 Blood Pressure: 118/87 Respiratory Rate: 20 Pulse Ox: 98 Oxygen Delivery Method: Trach Collar Oxygen Flow Rate (L/min): 8 Assessment Airway patent: Yes Spontaneous unlabored respirations: Yes Mental status: Awake and Calm nausea: No Vomiting: No Anesthesia Complication: No Fluid Hydration Crystalloid volume administer (ml): 400 Total IV fluid infused: 400 Progress Note Anesthesia document: Postop Eval 1 completed: Yes
--- NOTE | 2023-11-19 13:22 | POSTOPAN2_ITS ---
Anesthesia Postop Eval I Sum Postop Eval Completion status Anesthesia document: Postop Eval 1 completed: Yes Anesthesia Postop Eval I Summary Anesthesia Postop Eval I Summary: Anesthesia Postop Eval I: Assessment Summary Airway patent Yes 11/19/23 12:51 SOCIAL SERVICES DIRECTOR.CSIR Spontaneous unlabored Yes 11/19/23 12:51 SOCIAL SERVICES DIRECTOR.CSIR respirations Mental status Awake,Calm 11/19/23 12:51 SOCIAL SERVICES DIRECTOR.CSIR nausea No 11/19/23 12:51 SOCIAL SERVICES DIRECTOR.CSIR Vomiting No 11/19/23 12:51 SOCIAL SERVICES DIRECTOR.CSIR Anesthesia Postop Eval I: Fluid Summary Crystalloid volume administer 400 11/19/23 12:51 SOCIAL SERVICES DIRECTOR.CSIR (ml) Colloids volume administered ( ml) Blood Product volume administered (ml) Total IV fluid infused 400 11/19/23 12:51 SOCIAL SERVICES DIRECTOR.CSIR Anesthesia Postop Eval I: Summary Notes Anesthesia Complication No 11/19/23 12:51 SOCIAL SERVICES DIRECTOR.CSIR Anesthesia Complication Comment: Post-operative progress note Anesthesia: Postop Eval II Evaluation Mental status: Awake Pain Level: 0 nausea: No Vomiting: No Complications Anesthesia Complication: No
--- NOTE | 2023-11-19 13:22 | PCM.POSTANE2 ---
Anesthesia Postop Eval I Sum Postop Eval Completion status Anesthesia document: Postop Eval 1 completed: Yes Anesthesia Postop Eval I Summary Anesthesia Postop Eval I Summary: Anesthesia Postop Eval I: Assessment Summary Airway patent Yes 11/19/23 12:51 DISHWASHER PREPARER.CSIR Spontaneous unlabored Yes 11/19/23 12:51 DISHWASHER PREPARER.CSIR respirations Mental status Awake,Calm 11/19/23 12:51 DISHWASHER PREPARER.CSIR nausea No 11/19/23 12:51 DISHWASHER PREPARER.CSIR Vomiting No 11/19/23 12:51 DISHWASHER PREPARER.CSIR Anesthesia Postop Eval I: Fluid Summary Crystalloid volume administer 400 11/19/23 12:51 DISHWASHER PREPARER.CSIR (ml) Colloids volume administered ( ml) Blood Product volume administered (ml) Total IV fluid infused 400 11/19/23 12:51 DISHWASHER PREPARER.CSIR Anesthesia Postop Eval I: Summary Notes Anesthesia Complication No 11/19/23 12:51 DISHWASHER PREPARER.CSIR Anesthesia Complication Comment: Post-operative progress note Anesthesia: Postop Eval II Evaluation Mental status: Awake Pain Level: 0 nausea: No Vomiting: No Complications Anesthesia Complication: No
--- NOTE | 2023-11-19 17:21 | OP.CCLET_ITS ---
11/19/2023 No Primary Care Physician Re : Upper GI endoscopy procedure for Mickey Barkley Dear Care Physician This procedure was performed on October. My impressions and recommendations are as follows: Impressions : - No gross lesions in the duodenal bulb, in the first portion of the duodenum and in the second portion of the duodenum. No specimens collected. - No gross lesions in the entire stomach. - The examination was otherwise normal. - Nodular mucosa in the duodenal bulb. No specimens collected. - An externally removable PEG placement was successfully completed. Recommendations : - Return patient to referring hospital for ongoing care. - NPO for 1 day. - Resume Lovenox (enoxaparin) at prior dose in 2 days. Refer to managing physician for further adjustment of therapy. My findings are described in the full procedure note, which is enclosed. If I can be of further assistance, please feel free to contact me at Doctor phone number(s): , Work: . Sincerely, Carlito Barkley MD 11/19/2023 5:20:33 PM This report has been signed electronically.
--- NOTE | 2023-11-19 17:21 | OP.EGD_ITS ---
Patient Name: Mickey Barkley Procedure Date: 11/19/2023 9:50 AM Date of : 1955 Age: 68 Procedure: Upper GI endoscopy Indications: Malnutrition, Personal history of malignant neoplasm Providers: Carlito Barkley MD Referring MD: No Primary Care Physician Medicines: See the Anesthesia note for documentation of the administered medications Patient Profile: Refer to note in patient chart for documentation of history and physical. Complications: No immediate complications. Estimated blood loss: Minimal. Procedure: Pre-Anesthesia Assessment: - General anesthesia under the supervision of a FLEET MANAGER/DISPATCH was determined to be medically necessary for this procedure based on concurrent tracheostomy. After obtaining informed consent, the endoscope was passed under direct vision. Throughout the procedure, the patient's blood pressure, pulse, and oxygen saturations were monitored continuously. The gastroscope was introduced through the mouth, and advanced to the second part of duodenum. The upper GI endoscopy was accomplished without difficulty. The patient tolerated the procedure well. Scope In: 11:45:36 AM Scope Out: 12:23:06 PM Total Procedure Duration Time 0 hours 37 minutes 30 seconds Findings: No gross lesions were noted in the duodenal bulb, in the first portion of the duodenum and in the second portion of the duodenum. No biopsies or other specimens were collected for this exam. No gross lesions were noted in the entire examined stomach. Estimated blood loss was minimal. The patient was placed in the supine position for PEG placement. The stomach was insufflated to appose gastric and abdominal busch. A site was located in the body of the stomach with excellent transillumination for placement. The abdominal wall was marked and prepped in a sterile manner. The area was anesthetized with 3 mL of 1% lidocaine. The trocar needle was introduced through the abdominal wall and into the stomach under direct endoscopic view. A snare was introduced through the endoscope and opened in the gastric lumen. The guide wire was passed through the trocar and into the open snare. The snare was closed around the guide wire. The endoscope and snare were removed, pulling the wire out through the mouth. A skin incision was made at the site of needle insertion. The externally removable 20 Fr EndoVive Safety gastrostomy tube was lubricated. The G-tube was tied to the guide wire and pulled through the mouth and into the stomach. The trocar needle was removed, and the gastrostomy tube was pulled out from the stomach through the skin. The external bumper was attached to the gastrostomy tube, and the tube was cut to remove the guide wire. The final position of the gastrostomy tube was confirmed by relook endoscopy, and skin marking noted to be 4 cm at the external bumper. The final tension and compression of the abdominal wall by the PEG tube and external bumper were checked and revealed that the bumper was loose and lightly touching the skin and that the PEG balloon was loose and lightly touching the stomach. The feeding tube was capped, and the tube site cleaned and dressed. The exam was otherwise without abnormality. Localized nodular mucosa was found in the duodenal bulb. No biopsies or other specimens were collected for this exam. Impression: - No gross lesions in the duodenal bulb, in the first portion of the duodenum and in the second portion of the duodenum. No specimens collected. - No gross lesions in the entire stomach. - The examination was otherwise normal. - Nodular mucosa in the duodenal bulb. No specimens collected. - An externally removable PEG placement was successfully completed. Recommendation: - Return patient to referring hospital for ongoing care. - NPO for 1 day. - Resume Lovenox (enoxaparin) at prior dose in 2 days. Refer to managing physician for further adjustment of therapy. Procedure Code(s): --- Professional --- 15246, Esophagogastroduodenoscopy, flexible, transoral; with directed placement of percutaneous gastrostomy tube Diagnosis Code(s): --- Professional --- K31.89, Other diseases of stomach and duodenum E46, Unspecified protein-calorie malnutrition Z85.9, Personal history of malignant neoplasm, unspecified CPT copyright 2021 [employer]. All rights reserved. The codes documented in this report are preliminary and upon echo technician review may be revised to meet current compliance requirements. Carlito Barkley MD 11/19/2023 5:20:33 PM This report has been signed electronically. Number of Addenda: 0 Note Initiated On: 11/19/2023 9:50 AM
== END 2023-11-19 13:30 | disposition home or self-care (01) ==
LOC: EN 09:21 → AC 09:21
PROVIDERS: Visit Provider Surgery
PROC: (CPT 36561; principal; 2023-11-19 10:15)
PROC: 0DJ08ZZ Inspection of Upper Intestinal Tract, Via Natural or Artificial Opening Endoscopic (ICD-10-PCS; CPT 43235; principal; 2023-11-19 10:25)
DX: Z45.2 Encounter for adjustment and management of vascular access device (principal); Z93.1 Gastrostomy status; C32.9 Malignant neoplasm of larynx, unspecified; I50.22 Chronic systolic (congestive) heart failure; J44.9 Chronic obstructive pulmonary disease, unspecified; I42.9 Cardiomyopathy, unspecified; E43 Unspecified severe protein-calorie malnutrition; K31.89 Other diseases of stomach and duodenum; K29.80 Duodenitis without bleeding; E78.00 Pure hypercholesterolemia, unspecified; I25.10 Atherosclerotic heart disease of native coronary artery without angina pectoris; Z79.51 Long term (current) use of inhaled steroids; Z79.82 Long term (current) use of aspirin; Z79.899 Other long term (current) drug therapy; Z87.891 Personal history of nicotine dependence
CPT/HCPCS: 36561; 43246; 00532; 71045; 77001; C1894; C1788; J2405

== ENCOUNTER → 2023-11-25 | Outpatient (CLI) | payer MEDICARE, SELFPAY | END | disposition home or self-care (01) | LOC: CVS 06:14 | PROVIDERS: Referring Provider Internal Medicine Cardiovascular Disease; Visit Provider Internal Medicine Cardiovascular Disease | DX: I25.10 Atherosclerotic heart disease of native coronary artery without angina pectoris (principal); I50.22 Chronic systolic (congestive) heart failure; I11.0 Hypertensive heart disease with heart failure; I42.6 Alcoholic cardiomyopathy; R00.0 Tachycardia, unspecified | CPT/HCPCS: 78452; 93017; A9500; A4216; J2785 ==

== ENCOUNTER 2023-12-26 23:14 | Emergency (ER) | payer MEDICARE, SELFPAY ==
[2023-12-26 23:17] VITALS: BP 130/78; PULSE 113; RESP 29; TEMP 36.9; O2SAT 98; BMI 19.2
[2023-12-26 23:20] VITALS: BP 130/78; PULSE 112; RESP 22; TEMP 36.9; O2SAT 96
--- NOTE | 2023-12-26 23:51 | EX.ED.DYSGE1 ---
HPI History of Present Illness Chief Complaint: Shortness of Breath Informant: patient, EMS and SNF Narrative Narrative: Patient is a 68-year-old male with past medical history of laryngeal squamous cell carcinoma and secondary to this has a tracheostomy. Reportedly this evening he coughed and in doing so dislodged his trach. Therefore the need for trach replacement he was sent to the hospital for evaluation. Patient reports that other than dislodging his trach he is at his baseline health status [facility] Medical History CHF exacerbation Debility Chronic HFrEF (heart failure with reduced ejection fraction) Hyperlipidemia Laryngeal squamous cell carcinoma Cardiomyopathy Laryngeal mass Tobacco abuse Alcoholism Agoraphobia Medical non-compliance Alcohol abuse Acute hypoxic respiratory failure Esophageal mass Wears dentures Wears glasses Cardiology follow-up encounter Difficulty swallowing Smoker High cholesterol COPD (chronic obstructive pulmonary disease) History of CHF (congestive heart failure) Home Medications ?Medication ?Instructions ?Recorded ?Last Taken ?Type atorvastatin 40 mg tablet 40 mg PO QHS Cholesterol #30 tabs 10/15/23 10/14/23 Rx acetaminophen 325 mg tablet 650 mg (2 x 325 mg) PO Q4H PRN PRN 10/23/23 Unknown Rx Pain Score 1-10 #0 tabs nicotine 21 mg/24 hr daily 21 mg transdermal DAILY smoking 28 10/23/23 10/23/23 09:50 Rx transdermal patch days #0 ea lidocaine-prilocaine 2.5 %-2.5 % 1 applic topical ONCE PRN port 11/17/23 Unknown Rx topical cream access 30 days #30 grams aspirin 81 mg tablet,delayed 81 mg PO BREAKFAST #0 tabs 11/26/23 Unknown Rx release bupropion HCl 75 mg tablet 75 mg PO BID #0 tabs 11/26/23 Unknown Rx carvedilol 3.125 mg tablet 3.125 mg PO BID #0 tabs 11/26/23 Unknown Rx food supplemt, lactose-reduced 120 ml PO 4X/DAY #0 mL 11/26/23 Unknown Rx 0.08 gram-1.5 kcal/mL oral liquid (Ensure Plus High Protein) ipratropium 0.5 mg-albuterol 3 mg 3 ml inhalation TID.RT #0 mL 11/26/23 Unknown Rx (2.5 mg base)/3 mL nebulization soln lisinopril 2.5 mg tablet 2.5 mg PO DAILY #0 tabs 11/26/23 Unknown Rx magnesium chloride 64 mg 128 mg (2 x 64 mg) PO DAILY #0 tabs 11/26/23 Unknown Rx (magnesium chloride) tablet,delayed release (Mag 64) menthol 0.44 %-zinc oxide 20.6 % 1 applic topical BID #0 grams 11/26/23 Unknown Rx topical ointment (Calmoseptine) potassium chloride 20 mEq 20 meq PO DAILYCM #0 tabs 11/26/23 Unknown Rx tablet,extended release(part/cryst) sennosides 8.6 mg-docusate sodium 2 tab PO BID #0 tabs 11/26/23 Unknown Rx 50 mg tablet (Stool Softener-Stimulant Laxative) thiamine HCl (vitamin B1) 100 mg 100 mg PO DAILYCM #0 tabs 11/26/23 Unknown Rx tablet (Vitamin B-1) morphine 10 mg/5 mL oral solution 10 mg (5 mL) sublingual Q6H PRN 12/14/23 Unknown Rx pain 30 days #150 mL silver sulfadiazine 1 % topical 1 applic topical BID #85 grams 12/21/23 Unknown Rx cream (Silvadene) Allergy/AdvReac Type Severity Reaction Status Date / Time No Known Allergies Allergy Verified 12/26/23 23:24 Family History Father Pacemaker Surgical History History of tracheostomy History of laryngoscopy History of surgery Social History household members: none current occupational status: retired Smoking Status: Former smoker alcohol intake: current alcohol intake frequency: 3 or more drinks per day Alcohol type: beer details: 6 24 ounce cans of beer daily. substance use type: does not use caffeine: Yes Type: coffee ROS ROS ED Constitutional Constitutional ED: Denies chills or fever(s) ENT ENT ED: Reports sore throat and other Details: Patient reports this is chronic in nature secondary to his history of laryngeal cancer and radiation therapy Cardiovascular Cardiovascular: Denies chest pain Respiratory/Chest Respiratory/Chest: Reports cough, dyspnea and other Details: Patient reports this is also chronic in nature secondary to his underlying symptoms Gastrointestinal Gastrointestinal: Reports other; Denies abdominal pain, nausea or vomiting Musculoskeletal Musculoskeletal: Denies myalgias Integumentary Reports other Details: Positive chronic skin breakdown Neurologic Neurologic: Denies headache(s) Hematologic/Lymphatic Hematologic/Lymphatic: Reports easy bleeding and easy bruising EXAM Physical Exam Const Vital Signs: 12/26/23 23:17 12/26/23 23:20 12/26/23 23:23 Temperature 98.4 F 98.4 F Temperature Source Temporal Temporal Pulse Rate 113 H 112 H Respiratory Rate 29 H 22 H Respiratory Effort Normal Respiratory Depth Normal Respiratory Pattern Normal Blood Pressure 130/78 H 130/78 H Blood Pressure Mean 95 95 Pulse Ox 98 96 Oxygen Delivery Method Room Air Room Air Room Air 12/27/23 00:38 Temperature Temperature Source Pulse Rate 112 H Respiratory Rate 97 H Respiratory Effort Respiratory Depth Respiratory Pattern Blood Pressure Blood Pressure Mean Pulse Ox 2 Oxygen Delivery Method Trach Collar Positive well developed and cachectic General Appearance ED: well developed and cachectic Nutritional Appearance: cachectic HEENT HEENT Narrative: Normocephalic atraumatic No tongue or lip swelling noted Eyes PERRL and EOMs intact bilaterally General Eye ED: Negative for scleral icterus Neck supple Neck Narrative: There is excoriation and skin breakdown with mild venous bleeding of the anterior neck consistent with radiation therapy but no secondary findings to suggest infection There is a tracheostomy stoma present in the lower midline anterior neck with mucus production Resp normal respiratory effort Resp Narrative: Breath sounds are diminished throughout with rhonchi in the bilateral lobes However no nasal flaring or retractions. Patient does have mild tachypnea noted Cardio regular rhythm Rate: tachycardic and other Other Details: Tachycardic rate with regular rhythm Extremity normal to inspection Extremity Narrative: No asymmetric edema no pitting edema negative Homans' sign bilaterally Neuro oriented x3 and CN's II-XII intact bilaterally Sensorium / Orientation: alert Psych mental status grossly normal Skin Skin Narrative: Excoriation and skin breakdown to the anterior neck as documented above No secondary findings to suggest infection MDM MDM MDM Narrative Medical decision making narrative: Patient presented to the ER mildly tachycardic but satting in the mid 90s on room air. correction and patient reported he coughed and dislodged his tracheostomy tube within the last 1 to 2 hours. He is not showing signs of secondary infection or respiratory distress but in order to ensure that his stoma does not close his tracheostomy tube needs to be replaced. Therefore central supply was contacted and the same tube that he had in place was found. He was medicated with IV morphine Zofran and Ativan to help with comfort. The 7.5 tracheostomy tube was then lubricated with sterile jelly and advanced through the tracheostomy stoma without resistance. Following this the obturator was removed and the inner cannula placed. Patient's pulse ox remained in the mid 90s indicating it is in the proper position and tolerated the replacement well without complication. Therefore at this time as the patient's tracheostomy tube is been replaced he does not have signs of secondary infection or respiratory distress he is otherwise safe to return [facility] History & Record Review Discussion w/independent historian: Patient Discharge Plan Triage Chief Complaint: Shortness of Breath ED Provider: Emmanuel Joseph Dx/Rx/DC Orders Clinical Impression: Tracheostomy mechanical complication, COPD (chronic obstructive pulmonary disease), Hypertension, Laryngeal cancer Instructions: ED Tracheostomy Care Prescriptions: No Action lidocaine-prilocaine 2.5-2.5 % cream 1 applic topical ONCE PRN (Reason: port access) 30 Days Qty: 30 2RF morphine 10 mg/5 mL solution 10 mg sublingual Q6H MDD 40mg PRN (Reason: pain) 30 Days Qty: 150 0RF atorvastatin 40 mg Tablet 40 mg PO QHS Qty: 30 2RF acetaminophen 325 mg Tablet 650 mg PO Q4H PRN PRN (Reason: Pain Score 1-10) Qty: 0 0RF nicotine 21 mg/24 hr Patch 24 Hour 21 mg transdermal DAILY 28 Days Qty: 0 0RF ipratropium-albuterol 0.5 mg-3 mg(2.5 mg base)/3 mL Solution For Nebulization 3 ml inhalation TID.RT Qty: 0 0RF sennosides-docusate sodium [Stool Softener-Stimulant Laxat] 8.6-50 mg Tablet 2 tab PO BID Qty: 0 0RF thiamine HCl (vitamin B1) [Vitamin B-1] 100 mg Tablet 100 mg PO DAILYCM Qty: 0 0RF aspirin 81 mg Tablet,Delayed Release (Dr/Ec) 81 mg PO BREAKFAST Qty: 0 0RF carvedilol 3.125 mg Tablet 3.125 mg PO BID Qty: 0 0RF potassium chloride 20 mEq Tablet,Er Particles/Crystals 20 meq PO DAILYCM Qty: 0 0RF bupropion HCl 75 mg Tablet 75 mg PO BID Qty: 0 0RF lisinopril 2.5 mg Tablet 2.5 mg PO DAILY Qty: 0 0RF magnesium chloride [Mag 64] 64 mg Tablet,Delayed Release (Dr/Ec) 128 mg PO DAILY Qty: 0 0RF menthol-zinc oxide [Calmoseptine] 0.44-20.6 % Ointment 1 applic topical BID Qty: 0 0RF Protocol: *Topical Application Instructions APPLICATION INSTRUCTIONS: Apply to buttock Ensure Plus High Protein 0.08 gram-1.5 kcal/mL Liquid 120 ml PO 4X/DAY Qty: 0 0RF silver sulfadiazine [Silvadene] 1 % cream 1 applic topical BID Qty: 85 3RF Rx Instructions: apply a 1.5 mm thickness Primary Care Provider: Juan Rai Referrals: Care Physician,No Primary [Non-Staff] - Activity Restrictions/Additional Instructions: Your tracheostomy tube was replaced in the ER with the same version that you had prior. Please continue to care for it as directed and return to the ER should you have any further concerns Print Language: Taiwanese Disposition Disposition: Home, Self Care
[2023-12-26] MEDS: Ondansetron 4 MG/2 ML Vial IV (23:52)
[2023-12-26] MEDS: Morphine 4 MG/ML Syringe IV (23:52)
[2023-12-26] MEDS: LORazepam 2 MG/ML Syringe 1 MG IV (23:53)
[2023-12-27 00:38] VITALS: PULSE 112; RESP 97; O2SAT 2
--- NOTE | 2023-12-27 00:46 | CPS ---
ER physician, RN, and two RTs present at bedside of patient who [facility]. Physician inserted a new size 7.5 Shiley uncuffed trach and resecured the airway. Patient has a moderate amount of skin breakdown as a result of radiation therapy to the neck and area where the trach tie needs to be to secure the airway. Extra nonstick dressings were placed around the tube izaguirre to create an extra barrier over this skin breakdown. Patient states he is scheduled to have his trach changed with ENT next week. There were no other complications with this procedure.
[2023-12-27 00:48] VITALS: BP 130/75; PULSE 110; RESP 18; TEMP 36.6; O2SAT 97
[2023-12-27 01:09] VITALS: O2SAT 93
== END 2023-12-27 01:58 | disposition skilled nursing facility (03) ==
PROVIDERS: Emergency Provider Emergency Medicine; PCP Internal Medicine; Visit Provider Emergency Medicine
DX: J95.03 Malfunction of tracheostomy stoma (principal); C32.9 Malignant neoplasm of larynx, unspecified; J44.9 Chronic obstructive pulmonary disease, unspecified; I10 Essential (primary) hypertension; E78.00 Pure hypercholesterolemia, unspecified; Z79.82 Long term (current) use of aspirin; Z79.899 Other long term (current) drug therapy; Z87.891 Personal history of nicotine dependence
CPT/HCPCS: 31502; 96374; 96375; 99282; 31720; 99252; A4216; G0463; J2405

== ENCOUNTER 2023-12-29 09:58 | Inpatient (IN) | payer MEDICARE, SELFPAY ==
[2023-12-29] VITALS (11 sets, daily range): BP systolic 97–128; BP diastolic 56–87; PULSE 98–106; RESP 14–24; TEMP 36.6–37.4; O2SAT 92–99; BMI 20.2; BMI 18.9
--- NOTE | 2023-12-29 10:16 | EDS_ITS ---
HPI History of Present Illness Chief Complaint: Fever Detail of Chief Complaint: Fever Informant: patient Narrative Narrative: Fever that started last evening. Patient was seen by his radiation oncologist today and referred to the ER. Patient has history of of laryngeal cancer. Last chemo was 8 days ago. Patient came in over the weekend apparently because his trach got coughed out and they had to replace it. Patient's been having i ncreased cough and some drainage from the trach site. Denies abdominal pain. He had no vomiting or diarrhea. Denies urinary symptoms. [facility] Medical History CHF exacerbation Debility Chronic HFrEF (heart failure with reduced ejection fraction) Hyperlipidemia Laryngeal squamous cell carcinoma Cardiomyopathy Laryngeal mass Tobacco abuse Alcoholism Agoraphobia Medical non-compliance Alcohol abuse Acute hypoxic respiratory failure Esophageal mass Wears dentures Wears glasses Cardiology follow-up encounter Difficulty swallowing Smoker High cholesterol COPD (chronic obstructive pulmonary disease) History of CHF (congestive heart failure) Home Medications ?Medication ?Instructions ?Recorded ?Last Taken ?Type atorvastatin 40 mg tablet 40 mg PO QHS Cholesterol #30 tabs 10/15/23 10/14/23 Rx acetaminophen 325 mg tablet 650 mg (2 x 325 mg) PO Q4H PRN PRN 10/23/23 Unknown Rx Pain Score 1-10 #0 tabs nicotine 21 mg/24 hr daily 21 mg transdermal DAILY smoking 28 10/23/23 10/23/23 09:50 Rx transdermal patch days #0 ea lidocaine-prilocaine 2.5 %-2.5 % 1 applic topical ONCE PRN port 11/17/23 Unknown Rx topical cream access 30 days #30 grams aspirin 81 mg tablet,delayed 81 mg PO BREAKFAST #0 tabs 11/26/23 Unknown Rx release bupropion HCl 75 mg tablet 75 mg PO BID #0 tabs 11/26/23 Unknown Rx carvedilol 3.125 mg tablet 3.125 mg PO BID #0 tabs 11/26/23 Unknown Rx food supplemt, lactose-reduced 120 ml PO 4X/DAY #0 mL 11/26/23 Unknown Rx 0.08 gram-1.5 kcal/mL oral liquid (Ensure Plus High Protein) ipratropium 0.5 mg-albuterol 3 mg 3 ml inhalation TID.RT #0 mL 11/26/23 Unknown Rx (2.5 mg base)/3 mL nebulization soln lisinopril 2.5 mg tablet 2.5 mg PO DAILY #0 tabs 11/26/23 Unknown Rx magnesium chloride 64 mg 128 mg (2 x 64 mg) PO DAILY #0 tabs 11/26/23 Unknown Rx (magnesium chloride) tablet,delayed release (Mag 64) menthol 0.44 %-zinc oxide 20.6 % 1 applic topical BID #0 grams 11/26/23 Unknown Rx topical ointment (Calmoseptine) potassium chloride 20 mEq 20 meq PO DAILYCM #0 tabs 11/26/23 Unknown Rx tablet,extended release(part/cryst) sennosides 8.6 mg-docusate sodium 2 tab PO BID #0 tabs 11/26/23 Unknown Rx 50 mg tablet (Stool Softener-Stimulant Laxative) thiamine HCl (vitamin B1) 100 mg 100 mg PO DAILYCM #0 tabs 11/26/23 Unknown Rx tablet (Vitamin B-1) silver sulfadiazine 1 % topical 1 applic topical BID #85 grams 12/21/23 Unknown Rx cream (Silvadene) morphine 10 mg/5 mL oral solution 10 mg (5 mL) sublingual Q6H PRN 12/29/23 Unknown Rx pain 30 days #500 mL Allergy/AdvReac Type Severity Reaction Status Date / Time No Known Allergies Allergy Verified 12/29/23 11:04 Family History Father Pacemaker Surgical History History of tracheostomy History of laryngoscopy History of surgery Social History household members: none current occupational status: retired Smoking Status: Former smoker alcohol intake: current alcohol intake frequency: 3 or more drinks per day Alcohol type: beer details: 6 24 ounce cans of beer daily. substance use type: does not use caffeine: Yes Type: coffee ROS ROS ED Review of Systems ROS Unobtainable: other Constitutional Constitutional ED: Reports fever(s) and lethargy; Denies chills, sweats or weight loss Eyes Eyes: Denies blurry vision, change in vision or diplopia ENT ENT ED: Denies rhinorrhea or sore throat Cardiovascular Cardiovascular: Denies chest pain, orthopnea or racing heartbeat Respiratory/Chest Respiratory/Chest: Reports cough; Denies dyspnea, dyspnea on exertion, orthopnea or sputum Gastrointestinal Gastrointestinal: Denies abdominal pain, diarrhea, nausea or vomiting Genitourinary Genitourinary ED: Denies dysuria, hematuria or urinary frequency Musculoskeletal Musculoskeletal: Denies arthralgias, back pain, myalgias or neck pain Integumentary Denies abscess, Abrasions or rash Neurologic Neurologic: Denies headache(s) or weakness Psychiatric Psychiatric: Denies anxiety, depression or suicidal thoughts Endocrine Endocrinology: Denies polydipsia, polyphagia or polyuria Hematologic/Lymphatic Hematologic/Lymphatic: Denies easy bleeding, easy bruising or lymphadenopathy Allergic/Immunologic Allergic/Immunologic ED: Denies mouth swelling, tongue swelling or urticaria EXAM Physical Exam Const Vital Signs: 12/29/23 09:59 12/29/23 10:13 12/29/23 10:50 Temperature 97.8 F 97.8 F Temperature Source Temporal Temporal Pulse Rate 106 H 106 H Respiratory Rate 16 16 Respiratory Effort Normal Non-Labored Respiratory Pattern Normal Blood Pressure 102/56 L 102/56 L Blood Pressure Mean 71 71 Pulse Ox 96 96 Oxygen Delivery Method Trach Collar Trach Collar Oxygen Flow Rate (L/min) 2 12/29/23 11:02 12/29/23 12:00 12/29/23 13:00 Temperature 97.8 F 97.9 F 99.4 F H Temperature Source Temporal Temporal Axillary Pulse Rate 102 H 104 H 99 Respiratory Rate 19 H 14 19 H Respiratory Effort Respiratory Pattern Blood Pressure 97/73 104/87 H 101/65 Blood Pressure Mean 81 92 77 Pulse Ox 96 96 97 Oxygen Delivery Method Trach Collar Trach Collar Trach Collar Oxygen Flow Rate (L/min) 2 2 Positive well nourished and well developed General Appearance ED: well developed and NAD HEENT Reports TM's clear and moist mucous membranes HEENT Narrative: Trach site has significant drainage noted and dried blood and excoriated skin. Patient has diffuse erythema about the neck with suspected radiation tanner. normocephalic and atraumatic; Negative for trauma or tenderness Tympanic Membrane ED: Yes TM's clear Eyes PERRL and EOMs intact bilaterally General Eye ED: Negative for pale conjunctiva or scleral icterus Neck no lymphadenopathy, supple and no JVD General: Negative for tenderness Chest Wall inspection of chest normal and palpation of chest normal Chest: Negative for tenderness Resp normal respiratory effort and clear to auscultation bilaterally Effort and Inspection: Negative for respiratory distress or pain with movement Auscultation: rhonchi; Negative for wheezes or diminished lung sounds Cardio regular rate, regular rhythm, S1 normal heart sound, S2 normal heart sound and no murmurs Peripheral Pulses: pulses 2+ throughout GI normal to inspection, nondistended, normoactive bowel sounds, soft to palpation, non-tender, non-distended and no masses Back/Spine no CVA tenderness and no thoracic nor lumbar tenderness Extremity normal to inspection General Extremety ED: Negative for edema General Extremity: Negative for edema Neuro oriented x3, CN's II-XII intact bilaterally, no sensory deficits noted and gait normal Sensorium / Orientation: awake, alert, oriented to person, oriented to place and oriented to time Motor Exam: strength 5/5 throughout and strength abnormal Psych mental status grossly normal Skin no rashes or lesions noted and no wounds MDM MDM MDM Narrative Medical decision making narrative: Patient presents emergency department complaint of fever. Patient with history of pharyngeal cancer and has tracheostomy. Underwent chemotherapy 8 days ago. Patient underwent radiation today and was sent in by his radiation oncologist. Patient does have a cough. IV line established. Blood cultures ordered. Ordered culture from port site as well as peripheral. CBC with differential obtained showed white count of 1.2 with hemoglobin 8.9 and platelet count of 214. Patient had an absolute neutrophil count of 0.6. Chemistries unremarkable. Lactate normal at 0.9. LFTs unremarkable. Urinalysis negative for signs of infection. COVID flu and RSV testing was negative. Chest x-ray essentially unremarkable. Lab Data Attestation: I reviewed the patient's lab results. Labs: Laboratory Results - last 24 hr 12/29/23 12/29/23 11:45 12:05 WBC 1.2 L* RBC 2.89 L Hgb 8.9 L Hct 25.9 L MCV 89.6 MCH 30.8 MCHC 34.4 RDW Std Deviation 45.6 H RDW Coeff of Eliida 14.6 Plt Count 214 MPV 9.1 Immature Gran % (Auto) 0.800 Neut % (Auto) 51.3 Lymph % (Auto) 10.7 L [place] % (Auto) 36.4 H Eos % (Auto) 0.0 Baso % (Auto) 0.8 Absolute Neuts (auto) 0.6 L Absolute Lymphs (auto) 0.13 L Nucleated RBC % 0 Differential Comment SCANNED Diff Path Review September Sodium 132 L Potassium 3.6 Chloride 95 L Carbon Dioxide 33.0 H Anion Gap 4 L BUN 24 H Creatinine 0.37 L Estim Creat Clear Calc 77.63 Est GFR (MDRD) Af Amer 297 Est GFR (MDRD) Non-Af 245 BUN/Creatinine Ratio 64.2 H Glucose 128 H Lactic Acid 0.9 Calcium 8.4 L Total Bilirubin 0.70 AST 33 ALT 48 Alkaline Phosphatase 64 Total Protein 6.4 Albumin 2.2 L Globulin 4.2 Albumin/Globulin Ratio 0.5 L Urine Color Yellow Urine Clarity Clear Urine pH 6.5 Ur Specific [place] 1.010 Urine Protein 30 H Urine Glucose (UA) Normal Urine Ketones 5 H Urine Occult Blood Negative Urine Nitrite Negative Urine Bilirubin Negative Urine Urobilinogen 4 H Ur Leukocyte Esterase 25 H Urine RBC 0 SEEN Urine WBC 0-5 SEEN Ur Squamous Epith Cells 0 SEEN Ur Renal Epithelial Cell 0-5 SEEN Amorphous Sediment 1+ Urine Bacteria 2+ Urine Mucus 0 SEEN Radiography Diagnostic Testing: Clinical Impression(s) from Imaging Studies Chest X-Ray 12/29/23 11:10 IMPRESSION: Hyperinflation. No acute abnormality is seen. Electronically Signed: Patrice Lehman MD at 12:16 EDT , 1 view chest x-ray obtained interpreted by myself as no evidence of infiltrate or pneumothorax or acute disease process. Radiology in agreement. Discharge Plan Triage Chief Complaint: Fever ED Provider: Mercedes Gudino Dx/Rx/DC Orders Clinical Impression: Fever and neutropenia, Cough, History of laryngeal cancer Prescriptions: No Action lidocaine-prilocaine 2.5-2.5 % cream 1 applic topical ONCE PRN (Reason: port access) 30 Days Qty: 30 2RF morphine 10 mg/5 mL solution 10 mg sublingual Q6H MDD 40mg PRN (Reason: pain) 30 Days Qty: 500 0RF atorvastatin 40 mg Tablet 40 mg PO QHS Qty: 30 2RF acetaminophen 325 mg Tablet 650 mg PO Q4H PRN PRN (Reason: Pain Score 1-10) Qty: 0 0RF nicotine 21 mg/24 hr Patch 24 Hour 21 mg transdermal DAILY 28 Days Qty: 0 0RF ipratropium-albuterol 0.5 mg-3 mg(2.5 mg base)/3 mL Solution For Nebulization 3 ml inhalation TID.RT Qty: 0 0RF sennosides-docusate sodium [Stool Softener-Stimulant Laxat] 8.6-50 mg Tablet 2 tab PO BID Qty: 0 0RF thiamine HCl (vitamin B1) [Vitamin B-1] 100 mg Tablet 100 mg PO DAILYCM Qty: 0 0RF aspirin 81 mg Tablet,Delayed Release (Dr/Ec) 81 mg PO BREAKFAST Qty: 0 0RF carvedilol 3.125 mg Tablet 3.125 mg PO BID Qty: 0 0RF potassium chloride 20 mEq Tablet,Er Particles/Crystals 20 meq PO DAILYCM Qty: 0 0RF bupropion HCl 75 mg Tablet 75 mg PO BID Qty: 0 0RF lisinopril 2.5 mg Tablet 2.5 mg PO DAILY Qty: 0 0RF magnesium chloride [Mag 64] 64 mg Tablet,Delayed Release (Dr/Ec) 128 mg PO DAILY Qty: 0 0RF menthol-zinc oxide [Calmoseptine] 0.44-20.6 % Ointment 1 applic topical BID Qty: 0 0RF Protocol: *Topical Application Instructions APPLICATION INSTRUCTIONS: Apply to buttock Ensure Plus High Protein 0.08 gram-1.5 kcal/mL Liquid 120 ml PO 4X/DAY Qty: 0 0RF silver sulfadiazine [Silvadene] 1 % cream 1 applic topical BID Qty: 85 3RF Rx Instructions: apply a 1.5 mm thickness Primary Care Provider: Juan Rai Referrals: Juan Rai DO [Primary Care Provider] - Print Language: Estonian Disposition Disposition: Acute Care Hospital [facility]
[2023-12-29] MEDS: Lidocaine/Prilocaine HCl 5 GM Tube TOPICAL (11:00)
--- NOTE | 2023-12-29 11:10 | RAD_ITS ---
STUDY: X-RAY CHEST REASON FOR EXAM: Male, 68 years old. Fever, cough TECHNIQUE: Single AP portable view of the chest. COMPARISON: Comparison is made with prior study dated November 22, 2023. FINDINGS: EKG electrodes are seen. A tracheostomy tube is seen with the tip at 16 cm proximal to the annette. A right-sided portacatheter is present. There is hyperinflation of the lungs consistent with chronic obstructive lung disease (COPD). There is no demonstrated pleural abnormality. Normal size heart. Normal mediastinum and shama. There is prominence of the pulmonary hilar arteries without peripheral pulmonary vascular congestion, suggesting pulmonary hypertension. Normal visualized aortic arch and descending thoracic aorta. There are degenerative changes of the visualized thoracic spine. Healed right rib fractures. There is no demonstrated abnormality of the visualized soft tissue structures of the upper abdomen. RAD/Chest 1 View (Portable) IMPRESSION: Hyperinflation. No acute abnormality is seen. Electronically Signed: Patrice Lehman MD at 12:16 EDT ,
[2023-12-29] MEDS: Piperacil/Tazobactam 4.5 GM in NS100 MBP IV (11:45)
[2023-12-29 12:13] LABS: Mucous, Urine 0 SEEN /hpf (<or=2+); Red Blood Cells-Urine 0 SEEN /hpf (0-5); Squamous Epithelial Cells - UA 0 SEEN /hpf (0-5)
[2023-12-29 12:15] LABS: Color, Urine Yellow (Yellow); Glucose, Dipstick Normal (Normal); Ketone-Dipstick 5 mg/dl (Negative); Leukocyte Esterase-Dipstick 25 /ul (Negative); Nitrite-Dipstick Negative (Negative); Occult Blood-Urine Negative /ul (Negative); Protein-Dipstick 30 mg/dl (Negative); Urine Bilirubin Dipstick Negative (Negative); Urine Clarity Clear (Clear); Urine Urobilinogen 4 mg/dl (Normal); Urine pH 6.5 (5.0 - 8.0)
[2023-12-29 12:43] LABS: Amorphous Sediment 1+; Bacteria 2+ /hpf (None Seen); Renal Epithelial Cells 0-5 SEEN /hpf (0-5); White Blood Cells 0-5 SEEN /hpf (0-5)
[2023-12-29 12:53] LABS: ALB/GLOB Ratio 0.5 RATIO (0.9-2.4); AST(SGOT) 33 U/L (15-37); Absolute Lymphocyte Count 0.13 X10^3/uL (0.83-4.51); Absolute Neutrophil Count 0.6 X10^3/uL (2.0-7.7); Alanine Aminotransfer ALT/SGPT 48 U/L (16-61); Albumin, Serum 2.2 g/dL (3.2-5.0); Alkaline Phosphatase 64 U/L (45-117); Anion Gap 4 (5-15); BUN 24 mg/dL (7-18); BUN/Creat Ratio 64.2 RATIO (10-20); Basophil# 0.01 X10^3/uL; Basophil% 0.8 % (0-1); Calcium,Total 8.4 mg/dL (8.5-10.1); Chloride 95 mmol/L (98-107); Creatinine, Serum 0.37 mg/dL (0.70-1.30); EST Glomerular Filtration Rate 245 mL/min (>60); Est Glom Filt Rate - Afr Amer 297 mL/min (>60); Estimated Creatinine Clearance 77.63 ml/min; Globulin 4.2 g/dL (2.2-4.2); Glucose 128 mg/dL (74-106); Hematocrit 25.9 % (40-54); Hemoglobin 8.9 g/dL (13.0-16.5); Lactic Acid 0.9 mmol/L (0.4-1.9); Lymphocyte # 0.13 X10^3/ul (0.83-4.51); Lymphocyte % 10.7 % (19-41); Mean Corp Hgb Conc 34.4 g/dL (32-36); Mean Corpuscular Hgb 30.8 pg (27.0-32.0); Mean Corpuscular Volume 89.6 fL (80-94); Mean Platelet Vol. 9.1 fl (6.2-12.0); Monocyte# 0.44 X10^3/uL; Monocyte% 36.4 % (0-10); NRBC Flagged by Analyzer 0 % (0-5); Neutrophil # 0.62 X10^3/uL (2.7-7.7); Neutrophil % 51.3 % (47-70); POSITIVE COUNT YES; POSITIVE DIFFERENTIAL YES; POSITIVE MORPHOLOGY YES; Platelet Count 214 K/mm3 (150-450); Potassium 3.6 mmol/L (3.5-5.1); Protein, Total 6.4 g/dL (6.4-8.2); RBC Distribution Width CV 14.6 % (11.6-14.6); RBC Distribution Width SD 45.6 fl (35.1-43.9); Red Blood Count 2.89 M/mm3 (4.6-6.2); Sodium Level 132 mmol/L (136-145)
[2023-12-29 13:00] LABS: Differential Indicated SCAN CRITERIA MET; White Blood Count 1.2 K/mm3 (4.4-11.0)
[2023-12-29 13:01] LABS: Differential Comment SCANNED
--- NOTE | 2023-12-29 14:07 | HP.PCM.HOS_ITS ---
HPI - General General Date of Admission: 12/29/23 Date of Service: 12/29/23 Chief Complaint: Fever HPI Narrative CHACORTA CONCEPCION, is a 68-year-old male history of laryngeal cancer with trach undergoing chemo with Dr. Frost and radiation with Dr. Priest, hypertension, depression who presented to [facility] ED 12/29/2023 due to fever. He had radiation to his neck today and was referred to the ED due to a fever. He has had some cough and drainage from trach site and coughed hard enough over the weekend that trach got coughed out and had to be replaced. In the ED heart rate 106 with blood pressure 102/56, 96% on 2 L through trach collar, Tmax in ED 99.4. Did have ANC of 0.6 with hemoglobin 8.9, urine with only 25 leukoesterase but 2+ bacteria, chest x-ray with no acute abnormality. Given his ANC and fever he was given Zosyn and hospitalist contacted for admission for neutropenic fever. Patient evaluated at bedside with daughter present. They report that patient has chronic cough however has had increased secretions over the past several days and within the past 24 hours had a temp of 102, no problems with PEG tube, no problems with port, does have irritation and drainage from neck that had been covered and uncovered was removed it took off a layer of skin leading to some increased drainage. No diarrhea or abdominal pain, no new shortness of breath. Has had some drainage from under trach since it was changed. Does have a small abrasion on left lateral wrist without drainage and daughter feels his fingers may be a little bit swollen but no other focal or localizing complaints. [facility] Medical History CHF exacerbation Debility Chronic HFrEF (heart failure with reduced ejection fraction) Hyperlipidemia Laryngeal squamous cell carcinoma Cardiomyopathy Laryngeal mass Tobacco abuse Alcoholism Agoraphobia Medical non-compliance Alcohol abuse Acute hypoxic respiratory failure Esophageal mass Wears dentures Wears glasses Cardiology follow-up encounter Difficulty swallowing Smoker High cholesterol COPD (chronic obstructive pulmonary disease) History of CHF (congestive heart failure) Home Medications ?Medication ?Instructions ?Recorded ?Last Taken ?Type atorvastatin 40 mg tablet 40 mg PO QHS Cholesterol #30 tabs 10/15/23 10/14/23 Rx acetaminophen 325 mg tablet 650 mg (2 x 325 mg) PO Q4H PRN PRN 10/23/23 Unknown Rx Pain Score 1-10 #0 tabs aspirin 81 mg tablet,delayed 81 mg PO BREAKFAST #0 tabs 11/26/23 Unknown Rx release bupropion HCl 75 mg tablet 75 mg PO BID #0 tabs 11/26/23 Unknown Rx carvedilol 3.125 mg tablet 3.125 mg PO BID #0 tabs 11/26/23 Unknown Rx ipratropium 0.5 mg-albuterol 3 mg 3 ml inhalation TID.RT #0 mL 11/26/23 Unknown Rx (2.5 mg base)/3 mL nebulization soln lisinopril 2.5 mg tablet 2.5 mg PO DAILY #0 tabs 11/26/23 Unknown Rx menthol 0.44 %-zinc oxide 20.6 % 1 applic topical BID #0 grams 11/26/23 Unknown Rx topical ointment (Calmoseptine) potassium chloride 20 mEq 20 meq PO DAILYCM #0 tabs 11/26/23 Unknown Rx tablet,extended release(part/cryst) sennosides 8.6 mg-docusate sodium 2 tab PO BID #0 tabs 11/26/23 Unknown Rx 50 mg tablet (Stool Softener-Stimulant Laxative) thiamine HCl (vitamin B1) 100 mg 100 mg PO DAILYCM #0 tabs 11/26/23 Unknown Rx tablet (Vitamin B-1) silver sulfadiazine 1 % topical 1 applic topical BID #85 grams 12/21/23 Unknown Rx cream (Silvadene) guaifenesin 100 mg/5 mL oral 400 mg PO Q6H PRN congestion 12/29/23 Unknown History liquid (Adult Tussin Chest Congestion) morphine 10 mg/5 mL oral solution 10 mg (5 mL) sublingual Q6H PRN 12/29/23 Unknown Rx pain 30 days #500 mL nicotine 14 mg/24 hr daily 1 patch transdermal DAILY 12/29/23 Unknown History transdermal patch ondansetron 4 mg disintegrating 4 mg PO Q6H PRN nausea and vomiting 12/29/23 Unknown History tablet Allergy/AdvReac Type Severity Reaction Status Date / Time No Known Allergies Allergy Verified 12/29/23 11:04 Family History Father Pacemaker Surgical History History of tracheostomy History of laryngoscopy History of surgery Social History household members: none current occupational status: retired Smoking Status: Former smoker alcohol intake: current alcohol intake frequency: 3 or more drinks per day Alcohol type: beer details: 6 24 ounce cans of beer daily. substance use type: does not use caffeine: Yes Type: coffee ROS ROS Narrative General: Has had a fever HENT: Denies headache, denies stuffy nose, laryngeal cancer EYES: Denies changes in vision Resp: Increased cough with increased sputum Cardiac: Denies chest pain GI: Denies abdominal pain, denies changes in bowel : Denies changes in urination Extremity: Maybe some swelling in fingers Neuro: Denies any numbness/tingling Heme: Denies any bleeding or bruising Skin: Rash on neck Psychiatric: No complaints voiced Vital Signs Vital Signs Vital Signs: 12/29/23 09:59 12/29/23 10:13 12/29/23 10:50 Temperature 97.8 F 97.8 F Temperature Source Temporal Temporal Pulse Rate 106 H 106 H Respiratory Rate 16 16 Respiratory Effort Normal Non-Labored Respiratory Pattern Normal Blood Pressure 102/56 L 102/56 L Blood Pressure Mean 71 71 Pulse Ox 96 96 Oxygen Delivery Method Trach Collar Trach Collar Oxygen Flow Rate (L/min) 2 12/29/23 11:02 12/29/23 12:00 12/29/23 13:00 Temperature 97.8 F 97.9 F 99.4 F H Temperature Source Temporal Temporal Axillary Pulse Rate 102 H 104 H 99 Respiratory Rate 19 H 14 19 H Respiratory Effort Respiratory Pattern Blood Pressure 97/73 104/87 H 101/65 Blood Pressure Mean 81 92 77 Pulse Ox 96 96 97 Oxygen Delivery Method Trach Collar Trach Collar Trach Collar Oxygen Flow Rate (L/min) 2 2 12/29/23 13:35 Temperature 97.8 F Temperature Source Pulse Rate 98 Respiratory Rate 24 H Respiratory Effort Respiratory Pattern Blood Pressure 103/56 L Blood Pressure Mean 71 Pulse Ox 97 Oxygen Delivery Method Oxygen Flow Rate (L/min) Weight Weight: 62.1 kg Body Mass Index (BMI) 20.2 Physical Exam Narrative General: Alert, no apparent distress HEENT: Normocephalic Eyes: Anicteric, normal conjunctiva, extraocular movements grossly intact Neck: Trach in place, seepage from neck Respiratory: Transmitted upper airway sounds, normal respiratory effort Cardiovascular: Regular rate and rhythm GI: Soft, nontender, nondistended Extremities: No edema Musculoskeletal: Moving all extremities Neuro: No overt focal neurological deficits Skin: No rashes appreciated Psych: Cooperative Results Lab / Micro Data 12/29/23 11:45 12/29/23 11:45 Labs: Laboratory Results - last 24 hr 12/29/23 11:45: WBC 1.2 L*, RBC 2.89 L, Hgb 8.9 L, Hct 25.9 L, MCV 89.6, MCH 30.8, MCHC 34.4, RDW Std Deviation 45.6 H, RDW Coeff of Elidia 14.6, Plt Count 214, MPV 9.1, Immature Gran % (Auto) 0.800, Neut % (Auto) 51.3, Lymph % (Auto) 10.7 L , Hayes % (Auto) 36.4 H, Eos % (Auto) 0.0, Baso % (Auto) 0.8, Absolute Neuts (auto) 0.6 L, Absolute Lymphs (auto) 0.13 L, Nucleated RBC % 0, Differential Comment SCANNED, Diff Path Review September, Sodium 132 L, Potassium 3.6, C hloride 95 L, Carbon Dioxide 33.0 H, Anion Gap 4 L, BUN 24 H, Creatinine 0.37 L, Estim Creat Clear Calc 77.63, Est GFR (MDRD) Af Amer 297, Est GFR (MDRD) Non-Af 245, BUN/Creatinine Ratio 64.2 H, Glucose 128 H, Lactic Acid 0.9, Calcium 8.4 L, Total Bilirubin 0.70, AST 33, ALT 48, Alkaline Phosphatase 64, Total Protein 6.4, Albumin 2.2 L, Globulin 4.2, Albumin/Globulin Ratio 0.5 L 12/29/23 12:05: Urine Color Yellow, Urine Clarity Clear, Urine pH 6.5, Ur Specific Roggen 1.010, Urine Protein 30 H, Urine Glucose (UA) Normal, Urine Ketones 5 H, Urine Occult Blood Negative, Urine Nitrite Negative, Urine Bilirubin Negative, Urine Urobilinogen 4 H, Ur Leukocyte Esterase 25 H, Urine RBC 0 SEEN, Urine WBC 0-5 SEEN, Ur Squamous Epith Cells 0 SEEN, Ur Renal Epithelial Cell 0-5 SEEN, Amorphous Sediment 1+, Urine Bacteria 2+, Urine Mucus 0 SEEN Micro: Microbiology 12/29/23 11:45 Mucosa - Nose SARS-CoV-2, Influenza & RSV (PCR) - Final Imaging Radiology Impression Chest X-Ray 12/29/23 11:10 IMPRESSION: Hyperinflation. No acute abnormality is seen. Electronically Signed: Patrice Lehman MD at 12:16 EDT , Assessment & Plan Assessment/Plan (1) Fever and neutropenia: (2) COPD (chronic obstructive pulmonary disease): QUALIFIERS: COPD type: unspecified COPD Qualified Code(s): J44.9 - Chronic obstructive pulmonary disease, unspecified (3) Chronic HFrEF (heart failure with reduced ejection fraction): (4) Laryngeal squamous cell carcinoma: PLAN: Plan # Neutropenic fever -Tmax 102 prior to arrival -Possible respiratory given cough and some increased trach secretions -COVID-negative, will obtain respiratory panel -Culture of trach secretions -Blood cultures and urine cultures also sent -Port not red or erythematous and PEG site without erythema or drainage -Continue Zosyn, given purulence in neck and cannot rule out because being soft tissue infection will add vancomycin -Given increased cough will start Robitussin through PEG -Gentle IVF given EF # Laryngeal cancer with trach -Patient chronically with trach which was replaced over the weekend due to forceful coughing with trach displacement -Follows with Dr. Frost and is undergoing chemo with last treatment 8 days ago and also following with Dr. Priest for radiation oncology and he was seen by today. -Pt chronically with PEG- c/s nutrition/dietitian d/t tube feeds # Chronic heart failure with reduced ejection fraction -Patient with EF of 40% 10/09/2023 -No evidence of fluid overload at this time -Holding coreg given low BP -Hold pat -Daily weights -I's and O's #Chronic anemia -Close to baseline, no evidence of blood loss -Continue to monitor #mood d/o NOS -Continue wellbutrin #Hx COPD -Continue home inhalers #DVT ppx: Lovenox subcu Nadya Ferrara MD Time spent in the patient's overall evaluation,decision-making process, review of diagnostic data, adjustment of management, discussion with other providers, nursing nursing and ancillary staff involved in patient's care documentation, 57 minutes Charges/Coding Visit Charges Inpatient E&M: 94423 Init Hosp L2
--- NOTE | 2023-12-29 16:00 | NURSING ---
Patient arrived to unit with copious amount of secretions from trach. This RN deep suctioned the trach- patient tolerated, however the patients daughter then informed this RN that per his doctor he is not to be deep suctioned due to irritation. Note written on patients white board and aeronautics commission director notified.
--- NOTE | 2023-12-29 16:30 | NURSING ---
Patients daughter informed by battery charger tester Amanda that the hospital does not keep stocked his type of trach. Daughter will bring in an extra [facility] that is currently at the [facility].
[2023-12-29] MEDS: 0.9% Normal Saline (1000mL) 1,000 ML 50 ML IV (17:05)
[2023-12-29] MEDS: Vancomycin HCl 1,500 MG in 0.9% Normal Saline (500mL Bag) 500 ML 250 MG IV (17:06)
--- NOTE | 2023-12-29 17:35 | PCM.RX.CS ---
Consult Antibiotic Management Pharmacy has been consulted to manage selected antibiotic: Vancomycin Type of Intervention Type of Consult: New start Suspected Infection Suspected Infection: Other Labs Labs: Sodium 132 mmol/L (136-145) L 12/29/23 11:45 Potassium 3.6 mmol/L (3.5-5.1) 12/29/23 11:45 Chloride 95 mmol/L (98-107) L 12/29/23 11:45 Carbon Dioxide 33.0 mmol/L (21.0-32.0) H 12/29/23 11:45 Anion Gap 4 (5-15) L 12/29/23 11:45 BUN 24 mg/dL (7-18) H 12/29/23 11:45 Creatinine 0.37 mg/dL (0.70-1.30) L 12/29/23 11:45 Est GFR (MDRD) Af Amer 297 mL/min (>60) 12/29/23 11:45 Est GFR (MDRD) Non-Af 245 mL/min (>60) 12/29/23 11:45 BUN/Creatinine Ratio 64.2 RATIO (10-20) H 12/29/23 11:45 Glucose 128 mg/dL (74-106) H 12/29/23 11:45 Microbiology Microbiology: Microbiology 12/29/23 11:45 Mucosa - Nose SARS-CoV-2, Influenza & RSV (PCR) - Final Goal Trough Goal Trough: 15-20 mcg/mL Pharmacy Plan for Drug Dosing Pharmacy Plan for Drug Dosing: NEW START IV VANCOMYCIN Consulting Physician: Dr. Ferrara Indication: Neutropenic Fever Goal Trough: 15-20 SrCr: 0.37 CrCl: 77 mL/min Comments: Loading dose of 1500mg IV x1 ordered and administered 12/29/23 @1706 Vancomycin Dose: 750mg IV Q12hr to start 12/30/23 @0500 Pending Level: 12/31/23 @0430, prior to 4th total dose per protocol Pharmacy Service will continue to monitor and adjust dosing as required.
[2023-12-29] MEDS: Ipratropium/Albuterol Sulfate 3 ML AMPUL.NEB INHALATION (20:28)
[2023-12-29] MEDS: Atorvastatin Calcium 40 MG Tablet PO (20:42)
[2023-12-29] MEDS: buPROPion 75 MG Tablet PO (20:42)
[2023-12-29] MEDS: Piperacil/Tazobactam 3.375 GM in 0.9% Normal Saline (50mL MB+) 50 ML IV (20:42)
[2023-12-29] MEDS: Jevity 1.5 1,000 ML 80 ML GT (20:42)
[2023-12-30] VITALS (15 sets, daily range): BP systolic 89–122; BP diastolic 58–102; PULSE 86–149; RESP 18–24; TEMP 36.3–37.3; O2SAT 93–100; BMI 18.9
[2023-12-30] MEDS: Vancomycin HCl 750 MG in 0.9% Normal Saline (250mL Bag) 250 ML 250 MG IV ×2 (04:13→21:35)
[2023-12-30] MEDS: Piperacil/Tazobactam 3.375 GM in 0.9% Normal Saline (50mL MB+) 50 ML IV ×3 (05:37→23:19)
[2023-12-30 06:01] LABS: Absolute Lymphocyte Count 0.09 X10^3/uL (0.83-4.51); Absolute Neutrophil Count 0.7 X10^3/uL (2.0-7.7); Basophil# 0.01 X10^3/uL; Basophil% 0.8 % (0-1); Eosinophil# 0.01 X10^3/uL; Eosinophils% 0.8 % (0-5); Hematocrit 23.6 % (40-54); Hemoglobin 8.1 g/dL (13.0-16.5); Lymphocyte # 0.09 X10^3/ul (0.83-4.51); Lymphocyte % 7.1 % (19-41); Mean Corp Hgb Conc 34.3 g/dL (32-36); Mean Corpuscular Hgb 31.3 pg (27.0-32.0); Mean Corpuscular Volume 91.1 fL (80-94); Mean Platelet Vol. 8.7 fl (6.2-12.0); Monocyte# 0.39 X10^3/uL; NRBC Flagged by Analyzer 0 % (0-5); Neutrophil # 0.74 X10^3/uL (2.7-7.7); Neutrophil % 58.7 % (47-70); POSITIVE COUNT YES; POSITIVE DIFFERENTIAL YES; POSITIVE MORPHOLOGY YES; Platelet Count 200 K/mm3 (150-450); RBC Distribution Width CV 14.6 % (11.6-14.6); RBC Distribution Width SD 46.8 fl (35.1-43.9); Red Blood Count 2.59 M/mm3 (4.6-6.2)
[2023-12-30 06:12] LABS: Differential Indicated SCAN CRITERIA MET; White Blood Count 1.3 K/mm3 (4.4-11.0)
[2023-12-30 06:35] LABS: ALB/GLOB Ratio 0.6 RATIO (0.9-2.4); AST(SGOT) 68 U/L (15-37); Alanine Aminotransfer ALT/SGPT 61 U/L (16-61); Alkaline Phosphatase 56 U/L (45-117); Anion Gap 4 (5-15); BUN 17 mg/dL (7-18); Calcium,Total 7.9 mg/dL (8.5-10.1); Chloride 96 mmol/L (98-107); Creatinine, Serum 0.35 mg/dL (0.70-1.30); EST Glomerular Filtration Rate 261 mL/min (>60); Est Glom Filt Rate - Afr Amer 316 mL/min (>60); Estimated Creatinine Clearance 72.75 ml/min; Globulin 3.4 g/dL (2.2-4.2); Glucose 141 mg/dL (74-106); Potassium 2.9 mmol/L (3.5-5.1); Protein, Total 5.4 g/dL (6.4-8.2); Sodium Level 132 mmol/L (136-145); Thyroid Stim Hormone (TSH) 0.43 uIU/mL (0.358-3.74)
[2023-12-30] MEDS: Ipratropium/Albuterol Sulfate 3 ML AMPUL.NEB INHALATION ×3 (06:59→19:44)
--- NOTE | 2023-12-30 07:05 | CPS ---
patient refusing to be suctioned even though audibly elevated secretions
[2023-12-30 07:33] LABS: Toxic Granulation 1+
[2023-12-30] MEDS: Enoxaparin 40 MG/0.4 ML Syringe SC (08:42)
[2023-12-30] MEDS: Carvedilol 6.25 MG Tablet GT ×2 (09:18→22:01)
--- NOTE | 2023-12-30 09:36 | EKG12_ITS ---
Test Reason : Blood Pressure : / mmHG Vent. Rate : 153 BPM Atrial Rate : 000 BPM P-R Int : 000 ms QRS Dur : 080 ms QT Int : 316 ms P-R-T Axes : 000 056 067 degrees QTc Int : 504 ms Critical Test Result: High HR Atrial fibrillation with rapid ventricular response Nonspecific ST and T wave abnormality Abnormal ECG When compared with ECG of 22-OCT-2023 11:57, Atrial fibrillation has replaced Atrial flutter ST no longer elevated in Inferior leads T wave amplitude has decreased in Inferior leads Confirmed by CECILIA REYNOLDS, JAY ([id number]), editor greeting card SRAVANTHI GALO ([id number]) on 01/01/2024 9:43:44 AM Referred By: Confirmed By:KERLINE BROOKS MD
[2023-12-30] MEDS: Metoprolol Tartrate 5 MG/5 ML Vial IV (10:29)
--- NOTE | 2023-12-30 10:29 | CASEMGMT ---
Patient is from [facility]. SW will confirm with patient and/or his daughter that the plan is to return to [facility] at discharge. SW sent updates to [facility] via [employer]. Mary Anne SCHILLING
[2023-12-30] MEDS: Aspirin 81 MG TAB.CHEW GT (12:24)
[2023-12-30] MEDS: Potassium Chloride Oral Soln 20 MEQ/15 ML UDC 40 MEQ GT (12:24)
[2023-12-30] MEDS: buPROPion 75 MG Tablet GT ×2 (12:24→22:01)
--- NOTE | 2023-12-30 12:39 | CASEMGMT ---
SW met with patient. Introduced self and role at [facility]. SW asked patient if his plan is to return to [facility] at discharge. Patient shrugged his shoulders. SW asked patient if SW could call his daughter and patient nodded his head yes. SW called patient's daughter Rosalia and she confirmed the plan is for patient to return to [facility] at discharge. Mary Anne Hernandez BUSHING AND BROACH OPERATOR SHAKIR
[2023-12-30] MEDS: dilTIAZem 25 MG/5 ML Vial 15 MG IV BOLUS (13:14)
[2023-12-30] MEDS: 0.9 % NaCl (Sterile) Posiflush 10 mL IV ×2 (13:14→15:37)
--- NOTE | 2023-12-30 13:33 | EKG12_ITS ---
Test Reason : REPEAT Blood Pressure : / mmHG Vent. Rate : 091 BPM Atrial Rate : 091 BPM P-R Int : 152 ms QRS Dur : 076 ms QT Int : 374 ms P-R-T Axes : 087 037 066 degrees QTc Int : 460 ms Sinus rhythm with marked sinus arrhythmia Nonspecific T wave abnormality Abnormal ECG When compared with ECG of 30-DEC-2023 09:49, MANUAL COMPARISON REQUIRED, DATA IS UNCONFIRMED Confirmed by CECILIA REYNOLDS, JAY ([id number]), mapping editor SRAVANTHI GALO ([id number]) on 01/01/2024 9:43:59 AM Referred By: Confirmed By:KERLINE BROOKS MD
[2023-12-30 13:43] LABS: Pathologist Review Reviewed
[2023-12-30 13:46] LABS: Pathologist Review Reviewed
--- NOTE | 2023-12-30 13:48 | PCM.CONS.GEN ---
Assessment & Plan Assessment/Plan (1) Fever and neutropenia: PLAN: Concern for pneumonia. Sputum with GNR x2. Port in place, bcx ngtd. Cont vanc/zosyn. Will follow, thank you (2) Laryngeal cancer: (3) Port-A-Cath in place: HPI Consult Data Date of Consult: 12/30/23 HPI Narrative Reason for Consultation: neutropenic fever HPI Narrative: CHACORTA CONCEPCION, is a 68 M with laryngeal cancer on chemo and radiation. Has trach, R chest port. Came to ED 12/28 due to several days fever, cough, sputum, not feeling well. No issues with port. Admitted here on vanc/zosyn. Full ROS performed and neg except as noted above. [facility] Medical History Depression Former smoker On home oxygen therapy Atrial fibrillation Cardiomyopathy Alcoholism Laryngeal squamous cell carcinoma Esophageal mass Hyperlipidemia Chronic HFrEF (heart failure with reduced ejection fraction) Laryngeal mass Debility Wears dentures Wears glasses Cardiology follow-up encounter Difficulty swallowing Smoker High cholesterol COPD (chronic obstructive pulmonary disease) History of CHF (congestive heart failure) Agoraphobia CHF exacerbation Medical non-compliance Alcohol abuse Tobacco abuse Acute hypoxic respiratory failure Home Medications ?Medication ?Instructions ?Recorded ?Last Taken ?Type atorvastatin 40 mg tablet 40 mg PO QHS Cholesterol #30 tabs 10/15/23 10/14/23 Rx acetaminophen 325 mg tablet 650 mg (2 x 325 mg) PO Q4H PRN PRN 10/23/23 Unknown Rx Pain Score 1-10 #0 tabs aspirin 81 mg tablet,delayed 81 mg PO BREAKFAST #0 tabs 11/26/23 Unknown Rx release bupropion HCl 75 mg tablet 75 mg PO BID #0 tabs 11/26/23 Unknown Rx carvedilol 3.125 mg tablet 3.125 mg PO BID #0 tabs 11/26/23 Unknown Rx ipratropium 0.5 mg-albuterol 3 mg 3 ml inhalation TID.RT #0 mL 11/26/23 Unknown Rx (2.5 mg base)/3 mL nebulization soln lisinopril 2.5 mg tablet 2.5 mg PO DAILY #0 tabs 11/26/23 Unknown Rx menthol 0.44 %-zinc oxide 20.6 % 1 applic topical BID #0 grams 11/26/23 Unknown Rx topical ointment (Calmoseptine) potassium chloride 20 mEq 20 meq PO DAILYCM #0 tabs 11/26/23 Unknown Rx tablet,extended release(part/cryst) sennosides 8.6 mg-docusate sodium 2 tab PO BID #0 tabs 11/26/23 Unknown Rx 50 mg tablet (Stool Softener-Stimulant Laxative) thiamine HCl (vitamin B1) 100 mg 100 mg PO DAILYCM #0 tabs 11/26/23 Unknown Rx tablet (Vitamin B-1) silver sulfadiazine 1 % topical 1 applic topical BID #85 grams 12/21/23 Unknown Rx cream (Silvadene) guaifenesin 100 mg/5 mL oral 400 mg PO Q6H PRN congestion 12/29/23 Unknown History liquid (Adult Tussin Chest Congestion) morphine 10 mg/5 mL oral solution 10 mg (5 mL) sublingual Q6H PRN 12/29/23 Unknown Rx pain 30 days #500 mL nicotine 14 mg/24 hr daily 1 patch transdermal DAILY 12/29/23 Unknown History transdermal patch ondansetron 4 mg disintegrating 4 mg PO Q6H PRN nausea and vomiting 12/29/23 Unknown History tablet Allergy/AdvReac Type Severity Reaction Status Date / Time No Known Allergies Allergy Verified 12/29/23 11:04 Family History Father Pacemaker Surgical History History of tracheostomy History of laryngoscopy History of surgery Social History household members: none current occupational status: retired Smoking Status: Former smoker alcohol intake: current alcohol intake frequency: 3 or more drinks per day Alcohol type: beer details: 6 24 ounce cans of beer daily. substance use type: does not use caffeine: Yes Type: coffee Physical Exam Const alert and no apparent distress General Appearance: cooperative HEENT normocephalic and head/scalp atraumatic Eyes PERRL and EOMs intact bilaterally Neck supple Neck Narrative: Trach in place, diffuse redness anterior neck Resp Auscultation: rhonchi Cardio regular rate and regular rhythm GI soft to palpation, non-tender and non-distended Extremity General Extremity: Negative for edema Skin Skin Narrative: no other rash. R chest port no inflammation Neuro CN's II-XII intact bilaterally Lab / Micro Data Attestation: I reviewed the patient's lab results. 12/30/23 05:49 12/30/23 05:49 Labs: Laboratory Results - last 24 hr 12/29/23 11:45: Diff Path Review Reviewed 12/30/23 05:49: WBC 1.3 L*, RBC 2.59 L, Hgb 8.1 L, Hct 23.6 L, MCV 91.1, MCH 31.3, MCHC 34.3, RDW Std Deviation 46.8 H, RDW Coeff of Elidia 14.6, Plt Count 200, MPV 8.7, Immature Gran % (Auto) 1.600 H, Neut % (Auto) 58.7, Lymph % (Auto) 7.1 L, [place] % (Auto) 31.0 H, Eos % (Auto) 0.8, Baso % (Auto) 0.8, Absolute Neuts (auto) 0.7 L, Absolute Lymphs (auto) 0.09 L, Nucleated RBC % 0, Diff Path Review Reviewed, Toxic Granulation 1+, Sodium 132 L, Potassium 2.9 L, Chloride 96 L, Carbon Dioxide 32.0, Anion Gap 4 L, BUN 17, Creatinine 0.35 L, Estim Creat Clear Calc 72.75, Est GFR (MDRD) Af Amer 316, Est GFR (MDRD) Non-Af 261, BUN/Creatinine Ratio 48.0 H, Glucose 141 H, Calcium 7.9 L, Total Bilirubin 0.40, AST 68 H, ALT 61, Alkaline Phosphatase 56, Total Protein 5.4 L, Albumin 2.0 L, Globulin 3.4, Albumin/Globulin Ratio 0.6 L, TSH 0.43 Micro: Microbiology 12/29/23 12:46 Sputum, Tracheal Aspirate Gram Stain - Final 12/29/23 12:46 Sputum, Tracheal Aspirate Respiratory Culture - Preliminary GNR lactose customer engagement representative Gram negative aleisha 12/29/23 12:05 Urine, Clean Catch Urine Culture - Preliminary Mixed Gram Positive Organisms 12/29/23 11:45 Mucosa - Nose SARS-CoV-2, Influenza & RSV (PCR) - Final
--- NOTE | 2023-12-30 16:28 | PCM.PN.HOSP ---
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) Neutropenia, unspecified (12/29/23) Chronic systolic (congestive) heart failure (12/29/23) Chronic obstructive pulmonary disease, unspecified (12/29/23) Fever presenting with conditions classified elsewhere (12/29/23) Presence of other vascular implants and grafts (12/29/23) Subjective Subjective Patient was seen and examined today, he remains afebrile at this time, I had infectious diseases see the patient in consultation today, he continued with his radiation therapy today, patient also had an episode of atrial fibs and was given Cardizem IV and metoprolol IV and ultimately converted to normal sinus rhythm. Systolic blood pressure remains in the 90s so it would be difficult for me to raise his dose of beta-joaquín. I talked to his daughter by phone today and she confirmed that he has had a history of A-fib in the past-she stated that when he was admitted to the hospital here in September he had episodes of A-fib, I was not able to confirm that by looking at his medical record however. I think at this time it would be hazardous to anticoagulate the patient, he does have some radiation tanner to his neck area and these could bleed if he was anticoagulated. Objective Data Objective Data Vital Signs: Vital Signs Temp Pulse Resp BP Pulse Ox O2 Del Method O2 Flow Rate 97.6 F L 89 22 H 89/62 L 99 Trach Collar 2 12/30/23 15:46 12/30/23 15:46 12/30/23 15:46 12/30/23 15:46 12/30/23 15:46 12/30/23 15:46 12/30/23 15:46 Oxygen Flow Rate (L/min) 2 Oxygen Delivery Method Trach Collar Weight: 58.2 kg Body Mass Index (BMI) 18.9 Intake & Output: Intake and Output for Last 24 Hours 12/28/23 12/29/23 12/30/23 23:59 23:59 23:59 Intake Total 710 / 710 2041.67 / 2041.67 Output Total 150 / 150 800 / 800 Balance 560 / 560 1241.67 / 1241.67 Lab / Micro Data 12/30/23 05:49 12/30/23 05:49 Labs: Laboratory Results - last 24 hr 12/29/23 11:45: Diff Path Review Reviewed 12/30/23 05:49: WBC 1.3 L*, RBC 2.59 L, Hgb 8.1 L, Hct 23.6 L, MCV 91.1, MCH 31.3, MCHC 34.3, RDW Std Deviation 46.8 H, RDW Coeff of Elidia 14.6, Plt Count 200, MPV 8.7, Immature Gran % (Auto) 1.600 H, Neut % (Auto) 58.7, Lymph % (Auto) 7.1 L, [place] % (Auto) 31.0 H, Eos % (Auto) 0.8, Baso % (Auto) 0.8, Absolute Neuts (auto) 0.7 L, Absolute Lymphs (auto) 0.09 L, Nucleated RBC % 0, Diff Path Review Reviewed, Toxic Granulation 1+, Sodium 132 L, Potassium 2.9 L, Chloride 96 L, Carbon Dioxide 32.0, Anion Gap 4 L, BUN 17, Creatinine 0.35 L, Estim Creat Clear Calc 72.75, Est GFR (MDRD) Af Amer 316, Est GFR (MDRD) Non-Af 261, BUN/Creatinine Ratio 48.0 H, Glucose 141 H, Calcium 7.9 L, Total Bilirubin 0.40, AST 68 H, ALT 61, Alkaline Phosphatase 56, Total Protein 5.4 L, Albumin 2.0 L, Globulin 3.4, Albumin/Globulin Ratio 0.6 L, TSH 0.43 Micro: Microbiology 12/29/23 16:00 Wound Abcess - Neck Gram Stain - Preliminary 12/29/23 16:00 Wound Abcess - Neck Wound Culture - Preliminary Gram positive aleisha 12/29/23 12:46 Sputum, Tracheal Aspirate Gram Stain - Final 12/29/23 12:46 Sputum, Tracheal Aspirate Respiratory Culture - Preliminary GNR lactose water treatment specialist Gram negative aleisha 12/29/23 12:05 Urine, Clean Catch Urine Culture - Preliminary Mixed Gram Positive Organisms 12/29/23 11:45 Mucosa - Nose SARS-CoV-2, Influenza & RSV (PCR) - Final Physical Exam Const alert and no apparent distress Constitutional Narrative: Patient appears cachectic, unwell, and frail. He appears older than his stated age General Appearance: cooperative, well kempt and well developed Orientation / Consciousness: awake, oriented to person and oriented to place HEENT normocephalic HEENT Narrative: Patient has a tracheostomy, there are reddened areas around the patient's neck Mouth: dry mucous membranes Eyes PERRL, EOMs intact bilaterally and conjunctivae normal Neck supple, no JVD, thyroid normal and no carotid bruits General: trachea midline Resp normal respiratory effort, no retractions, no use of accessory muscles and clear to auscultation bilaterally Auscultation: Negative for rales, rhonchi or wheezes Cardio regular rate, regular rhythm, S1 normal heart sound, S2 normal heart sound, no murmurs, no rub and no gallops GI soft to palpation, non-tender and non-distended GI Narrative: PEG tube is in place Extremity no clubbing, cyanosis or edema Skin no rashes or lesions noted General Skin Exam: no breakdown Neuro CN's II-XII intact bilaterally, moves all extremities, no focal motor deficits and no sensory deficits noted Sensorium / Orientation: awake, alert, oriented to person and oriented to place Psych affect normal Assessment & Plan Assessment/Plan (1) Fever and neutropenia: PLAN: Plan 1. Neutropenic fever-patient has been afebrile thus far in the hospital, infectious diseases recommended continuing his present IV antibiotics. #2 neutropenia/anemia secondary to chemotherapy-I talked with the patient's oncology nurse today, she stated that as long as the patient is getting radiation he cannot be given Granix, she stated that Neulasta is not given to a patient with his chemotherapy regimen. Labs will be monitored #3 paroxysmal atrial fibrillation-patient remains on a beta-joaquín at this time, I think it would be hazardous to anticoagulate the patient at this time #4 chronic obstructive pulmonary disease-complicates care, management, recovery, and prognosis, patient is on as needed aerosol treatments #5 coronary artery disease-this appears stable at this time, patient remains on lisinopril, carvedilol, and atorvastatin #6 hyperlipidemia-patient is on atorvastatin #7 chronic depression-patient is on Wellbutrin #8 hypokalemia-patient was given potassium through his G-tube today, labs will be rechecked #9 chronic severe protein and caloric malnutrition in the context of chronic disease related to inadequate energy/oral intake and swallowing difficulty as evidenced by approximately 8% unintentional weight loss x 3 months, severe muscle wasting, and fat depletion in the clavicle, arms, legs, and orbital areas. P.o. intake meeting less than 50% of estimated nutritional needs-Jevity 1.5 nixon via PEG tube to start out at 30 cc/h and increase tube feedings as tolerated by 10 cc/h every 6 to 8 hours until goal rate of 50 cc/h is achieved. Tube feeding at goal rate and water flushes will provide 1800 nixon, 77 g of protein, and 1512 mL of free water per day. Nutritional services will participate in his care. Total clinical time spent by myself addressing the patient's medical issues, reviewing all of his data, and collaborating with patient's care team: 50 minutes Charges/Coding Visit Charges Inpatient E&M: 39458 Subs Hosp L3
[2023-12-30] MEDS: Silver Sulfadiazine 1% Crm 50 gm Bottle 1 APPLIC TOPICAL ×2 (18:54→22:02)
[2023-12-30] MEDS: Jevity 1.5 1,000 ML 30 ML GT (21:15)
[2023-12-30] MEDS: Atorvastatin Calcium 40 MG Tablet GT (22:01)
[2023-12-31] VITALS (15 sets, daily range): BP systolic 91–120; BP diastolic 57–74; PULSE 83–105; RESP 19–23; TEMP 36.6–37.3; O2SAT 90–100
[2023-12-31] MEDS: Vancomycin HCl 750 MG in 0.9% Normal Saline (250mL Bag) 250 ML 250 MG IV (04:59)
[2023-12-31] MEDS: Piperacil/Tazobactam 3.375 GM in 0.9% Normal Saline (50mL MB+) 50 ML IV ×3 (06:15→21:23)
[2023-12-31 06:24] LABS: Absolute Lymphocyte Count 0.29 X10^3/uL (0.83-4.51); Absolute Neutrophil Count 0.8 X10^3/uL (2.0-7.7); Basophil# 0.01 X10^3/uL; Basophil% 0.7 % (0-1); Eosinophil# 0.01 X10^3/uL; Eosinophils% 0.7 % (0-5); Hematocrit 23.4 % (40-54); Hemoglobin 7.7 g/dL (13.0-16.5); Lymphocyte # 0.29 X10^3/ul (0.83-4.51); Mean Corp Hgb Conc 32.9 g/dL (32-36); Mean Corpuscular Hgb 30.7 pg (27.0-32.0); Mean Corpuscular Volume 93.2 fL (80-94); Mean Platelet Vol. 9.2 fl (6.2-12.0); Monocyte# 0.27 X10^3/uL; Monocyte% 18.6 % (0-10); NRBC Flagged by Analyzer 0 % (0-5); Neutrophil # 0.84 X10^3/uL (2.7-7.7); Neutrophil % 57.9 % (47-70); POSITIVE COUNT YES; POSITIVE DIFFERENTIAL YES; POSITIVE MORPHOLOGY YES; Platelet Count 245 K/mm3 (150-450); RBC Distribution Width CV 14.9 % (11.6-14.6); RBC Distribution Width SD 48.2 fl (35.1-43.9); Red Blood Count 2.51 M/mm3 (4.6-6.2)
[2023-12-31 06:52] LABS: White Blood Count 1.5 K/mm3 (4.4-11.0)
[2023-12-31 06:53] LABS: Differential Indicated SCAN CRITERIA MET
[2023-12-31 07:02] LABS: Anion Gap 6 (5-15); BUN 15 mg/dL (7-18); BUN/Creat Ratio 41.1 RATIO (10-20); Calcium,Total 8.2 mg/dL (8.5-10.1); Chloride 101 mmol/L (98-107); Creatinine, Serum 0.36 mg/dL (0.70-1.30); EST Glomerular Filtration Rate 252 mL/min (>60); Est Glom Filt Rate - Afr Amer 305 mL/min (>60); Estimated Creatinine Clearance 72.75 ml/min; Glucose 131 mg/dL (74-106); Potassium 3.1 mmol/L (3.5-5.1); Sodium Level 135 mmol/L (136-145)
[2023-12-31] MEDS: Ipratropium/Albuterol Sulfate 3 ML AMPUL.NEB INHALATION ×3 (07:07→19:15)
[2023-12-31] MEDS: Enoxaparin 40 MG/0.4 ML Syringe SC (08:14)
[2023-12-31] MEDS: Lisinopril 2.5 MG Tablet GT (08:15)
[2023-12-31] MEDS: Carvedilol 6.25 MG Tablet GT ×2 (08:15→21:15)
[2023-12-31] MEDS: Aspirin 81 MG TAB.CHEW GT (08:15)
[2023-12-31] MEDS: buPROPion 75 MG Tablet GT ×2 (08:15→21:15)
--- NOTE | 2023-12-31 08:49 | WOUNDNOTE ---
Pt is currently down for radiation treatment. will assess neck later this am.
[2023-12-31 08:57] LABS: Differential Comment SCANNED
--- NOTE | 2023-12-31 09:25 | PCM.PN.HOSP ---
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 Patient remains afebrile, respiratory culture is preliminary at this point and shows a gram-negative lactose manager internet retails sales and a gram-negative aleisha. A wound culture was obtained from the neck area that showed a gram-positive aleisha. Objective Data Objective Data Vital Signs: Vital Signs Temp Pulse Resp BP Pulse Ox O2 Del Method O2 Flow Rate 98.4 F 102 H 19 H 111/64 96 Trach Collar 2 12/31/23 08:12 12/31/23 08:12 12/31/23 08:12 12/31/23 08:12 12/31/23 08:12 12/31/23 08:12 12/31/23 08:12 FiO2 35 12/30/23 23:00 Oxygen Flow Rate (L/min) 2 Oxygen Delivery Method Trach Collar Weight: 58.2 kg Body Mass Index (BMI) 18.9 Intake & Output: Intake and Output for Last 24 Hours 12/29/23 12/30/23 12/31/23 23:59 23:59 23:59 Intake Total 710 / 710 2496.67 / 2496.67 735.83 / 735.83 Output Total 150 / 150 1490 / 1490 0 / 0 Balance 560 / 560 1006.67 / 1006.67 735.83 / 735.83 Medical Nutrition Assessment Dietitian: Malnutrition Criteria Met Start: 12/30/23 16:44 Freq: Status: Active Protocol: Document 12/30/23 16:44 RMA (Rec: 12/30/23 16:45 RMA [id number]) Nutrition Malnutrition Evidence of Malnutrition Exists Yes Malnutrition (severe): Chronic Evidenced By Suboptimal Energy Intake ( Severe),Weight Loss (Severe), Physical Changes (Severe) Clinical Problem Chronic Disease or Condition Related Malnutrition Etiology Severe protein-calorie malnutrition in the context of chronic disease related to inadequate energy/oral intake and swallowing difficulty Signs/Symptoms as evidenced by ~8% unintentional weight loss x 3 months, severe muscle wasting and fat depletion in the clavicle, arms, legs and orbital, BMI 18.9 and PO meeting less than 50% estimated nutrition needs Status Active Problem Recommendation Dietitian Recommendations/Changes Pt is NPO, will order enteral nutrition support to meet ~100 % estimated nutrition needs. Will order Jevity 1.5 Nixon via PEG tube to start at 30mL/hr, increase TF as tolerated by 10mL/hr Q 6-8 hours until goal rate 50mL/hr achieved. Flush with 150 mL free water Q 6 hours. TF at goal rate and water flushes will provide 1800 kcal, 77 gm pro and 1512 mL free water per day. Regular diet as tolerated with consistency/texture as per ENROBER TENDER as deemed safe for PO. ONS as able to take PO diet. Lab / Micro Data 12/31/23 05:17 12/31/23 05:17 Labs: Laboratory Results - last 24 hr 12/29/23 11:45: Diff Path Review Reviewed 12/30/23 05:49: Diff Path Review Reviewed 12/31/23 05:17: WBC 1.5 L*, RBC 2.51 L, Hgb 7.7 L, Hct 23.4 L, MCV 93.2, MCH 30.7, MCHC 32.9, RDW Std Deviation 48.2 H, RDW Coeff of Elidia 14.9 H, Plt Count 245, MPV 9.2, Immature Gran % (Auto) 2.100 H, Neut % (Auto) 57.9, Lymph % (Auto) 20.0, [place] % (Auto) 18.6 H, Eos % (Auto) 0.7, Baso % (Auto) 0.7, Absolute Neuts (auto) 0.8 L, Absolute Lymphs (auto) 0.29 L, Nucleated RBC % 0, Differential Comment SCANNED, Sodium 135 L, Potassium 3.1 L, Chloride 101, Carbon Dioxide 28.0, Anion Gap 6, BUN 15, Creatinine 0.36 L, Estim Creat Clear Calc 72.75, Est GFR (MDRD) Af Amer 305, Est GFR (MDRD) Non-Af 252, BUN/Creatinine Ratio 41.1 H, Glucose 131 H, Calcium 8.2 L Micro: Microbiology 12/29/23 18:00 Mucosa - Nose Respiratory Panel (PCR) - Final 12/29/23 16:00 Wound Abcess - Neck Gram Stain - Preliminary 12/29/23 16:00 Wound Abcess - Neck Wound Culture - Preliminary Gram positive aleisha 12/29/23 12:46 Sputum, Tracheal Aspirate Gram Stain - Final 12/29/23 12:46 Sputum, Tracheal Aspirate Respiratory Culture - Preliminary GNR lactose manager internet retails sales Gram negative aleisha 12/29/23 12:05 Urine, Clean Catch Urine Culture - Preliminary Mixed Gram Positive Organisms 12/29/23 11:45 Mucosa - Nose SARS-CoV-2, Influenza & RSV (PCR) - Final Physical Exam Narrative alert and no apparent distress Constitutional Narrative: Patient appears cachectic, unwell, and frail. He appears older than his stated age General Appearance: cooperative, well kempt and well developed Orientation / Consciousness: awake, oriented to person and oriented to place HEENT normocephalic HEENT Narrative: Patient has a tracheostomy, there are reddened areas around the patient's neck Mouth: dry mucous membranes Eyes PERRL, EOMs intact bilaterally and conjunctivae normal Neck supple, no JVD, thyroid normal and no carotid bruits General: trachea midline Resp normal respiratory effort, no retractions, no use of accessory muscles and clear to auscultation bilaterally Auscultation: Negative for rales, rhonchi or wheezes Cardio regular rate, regular rhythm, S1 normal heart sound, S2 normal heart sound, no murmurs, no rub and no gallops GI soft to palpation, non-tender and non-distended GI Narrative: PEG tube is in place Extremity no clubbing, cyanosis or edema Skin no rashes or lesions noted General Skin Exam: no breakdown Neuro CN's II-XII intact bilaterally, moves all extremities, no focal motor deficits and no sensory deficits noted Sensorium / Orientation: awake, alert, oriented to person and oriented to place Psych affect normal Assessment & Plan Assessment/Plan (1) Fever and neutropenia: PLAN: Plan 1. Neutropenic fever-patient has been afebrile thus far in the hospital, infectious diseases recommended continuing his present IV antibiotics. #2 neutropenia/anemia secondary to chemotherapy-Labs will be monitored #3 paroxysmal atrial fibrillation-patient remains on a beta-joaquín at this time, I think it would be hazardous to anticoagulate the patient at this time, patient is in sinus rhythm #4 chronic obstructive pulmonary disease-complicates care, management, recovery, and prognosis, patient is on as needed aerosol treatments #5 coronary artery disease-this appears stable at this time, patient remains on lisinopril, carvedilol, and atorvastatin #6 hyperlipidemia-patient is on atorvastatin #7 chronic depression-patient is on Wellbutrin #8 hypokalemia-patient was given potassium through his G-tube today, labs will be rechecked #9 chronic severe protein and caloric malnutrition in the context of chronic disease related to inadequate energy/oral intake and swallowing difficulty as evidenced by approximately 8% unintentional weight loss x 3 months, severe muscle wasting, and fat depletion in the clavicle, arms, legs, and orbital areas. P.o. intake meeting less than 50% of estimated nutritional needs-Jevity 1.5 nixon via PEG tube to start out at 30 cc/h and increase tube feedings as tolerated by 10 cc/h every 6 to 8 hours until goal rate of 50 cc/h is achieved. Tube feeding at goal rate and water flushes will provide 1800 nixon, 77 g of protein, and 1512 mL of free water per day. Nutritional services will participate in his care. Total clinical time spent by myself addressing the patient's medical issues, reviewing all of his data, and collaborating with patient's care team: 35 minutes Charges/Coding Visit Charges Inpatient E&M: 64691 Subs Hosp L2
[2023-12-31] MEDS: Silver Sulfadiazine 1% Crm 50 gm Bottle 1 APPLIC TOPICAL ×2 (10:48→21:16)
--- NOTE | 2023-12-31 11:15 | PCM.PN.ID ---
Physical Exam Narrative Feeling a little better, no fever, mild cough, no n/v/d. Const alert and no apparent distress Resp Auscultation: rhonchi Cardio regular rate and regular rhythm GI soft to palpation, non-tender and non-distended Skin Skin Narrative: anterior neck redness ID ID: Route of nutrition/ use of supplements: [] Nutritional Intake: [] IV Site: [] Bansal Catheter: [] Assessment & Plan Assessment/Plan (1) Fever and neutropenia: PLAN: Concern for pneumonia. Sputum with GNR x2. Port in place, bcx ngtd. Cont vanc/zosyn. No fever overnight, ANC slowly improving. Will follow (2) Laryngeal cancer: (3) Port-A-Cath in place:
[2023-12-31] MEDS: Potassium Chloride Oral Soln 20 MEQ/15 ML UDC 40 MEQ GT (12:06)
--- NOTE | 2023-12-31 13:47 | CASEMGMT ---
Social Work- Pt has directives naming Georgina and Rosalia, daughters as agents. MAHENDRA Oliveira
[2023-12-31 16:53] LABS: Vancomycin, Trough Level 6.3 ug/mL (5.0-15.0)
--- NOTE | 2023-12-31 17:06 | PHA.PHARE_ITS ---
Consult Antibiotic Management Pharmacy has been consulted to manage selected antibiotic: Vancomycin Type of Intervention Type of Consult: Follow-up Suspected Infection Suspected Infection: Other (NEUTROPENIC FEVER) Prior Doses of Antibiotics Prior Doses of Antibiotics Received/Current Regimen: Vancomycin 750 mg [id number] 12/29 @ 0413, 12/29 @ 2135, 12/30 @ 0459 . Labs Labs: Sodium 135 mmol/L (136-145) L 12/31/23 05:17 Potassium 3.1 mmol/L (3.5-5.1) L 12/31/23 05:17 Chloride 101 mmol/L (98-107) 12/31/23 05:17 Carbon Dioxide 28.0 mmol/L (21.0-32.0) 12/31/23 05:17 Anion Gap 6 (5-15) 12/31/23 05:17 BUN 15 mg/dL (7-18) 12/31/23 05:17 Creatinine 0.36 mg/dL (0.70-1.30) L 12/31/23 05:17 Est GFR (MDRD) Af Amer 305 mL/min (>60) 12/31/23 05:17 Est GFR (MDRD) Non-Af 252 mL/min (>60) 12/31/23 05:17 BUN/Creatinine Ratio 41.1 RATIO (10-20) H 12/31/23 05:17 Glucose 131 mg/dL (74-106) H 12/31/23 05:17 Vancomycin Trough 6.3 ug/mL (5.0-15.0) 12/31/23 16:12 Microbiology Microbiology: Microbiology 12/29/23 12:46 Sputum, Tracheal Aspirate Gram Stain - Final 12/29/23 12:46 Sputum, Tracheal Aspirate Respiratory Culture - Preliminary GNR lactose claims adjustor Gram negative aleisha 12/29/23 16:00 Wound Abcess - Neck Gram Stain - Final 12/29/23 16:00 Wound Abcess - Neck Wound Culture - Preliminary Gram positive aleisha 12/29/23 12:05 Urine, Clean Catch Urine Culture - Final Mixed Gram Positive Organisms 12/29/23 18:00 Mucosa - Nose Respiratory Panel (PCR) - Final 12/29/23 11:45 Mucosa - Nose SARS-CoV-2, Influenza & RSV (PCR) - Final Dosing Weight Weight used for dosin.2 kg Estimated Creatinine Clearance Estimated Creatinine Clearance: ~73 Goal Trough Goal Trough: 15-20 mcg/mL Pharmacy Plan for Drug Dosing Pharmacy Plan for Drug Dosing: Vancomycin trough drawn 11.25 hours after previous dose = 6.3. Will increase to 1500 mg Q12H. I am concerned about more than doubling the dose d/t potential for accumulation and overshooting, therefore will only double dose to 1500 mg Q12H for now. Pharmacy Service will continue to monitor and adjust dosing as required. Follow-Up Labs Follow-Up Labs: Trough: Vancomycin Date/Time Labs Ordered Labs to be done on [date and time ordered]: 12/31/23 @ 0430
[2023-12-31] MEDS: Jevity 1.5 1,000 ML 50 ML GT (17:39)
[2023-12-31] MEDS: Vancomycin HCl 1,500 MG in 0.9% Normal Saline (500mL Bag) 500 ML 250 MG IV (18:08)
[2023-12-31] MEDS: Atorvastatin Calcium 40 MG Tablet GT (21:15)
[2023-12-31] MEDS: 0.9 % NaCl (Sterile) Posiflush 10 mL IV (21:29)
[2024-01-01] VITALS (10 sets, daily range): BP systolic 111–146; BP diastolic 65–82; PULSE 101–119; RESP 16–24; TEMP 36.2–36.8; O2SAT 93–100; BMI 19.0
[2024-01-01] MEDS: MorphINE SOLN 10 MG/0.5 ML PO.SYRINGE GT ×2 (02:04→15:48)
[2024-01-01] MEDS: Vancomycin HCl 1,500 MG in 0.9% Normal Saline (500mL Bag) 500 ML 250 MG IV (04:11)
[2024-01-01 05:46] LABS: Anion Gap 3 (5-15); BUN 10 mg/dL (7-18); BUN/Creat Ratio 24.4 RATIO (10-20); Calcium,Total 8.4 mg/dL (8.5-10.1); Chloride 102 mmol/L (98-107); Creatinine, Serum 0.41 mg/dL (0.70-1.30); EST Glomerular Filtration Rate 221 mL/min (>60); Est Glom Filt Rate - Afr Amer 267 mL/min (>60); Estimated Creatinine Clearance 72.75 ml/min; Glucose 133 mg/dL (74-106); Potassium 3.3 mmol/L (3.5-5.1); Sodium Level 135 mmol/L (136-145)
[2024-01-01 05:47] LABS: Absolute Lymphocyte Count 0.17 X10^3/uL (0.83-4.51); Absolute Neutrophil Count 0.8 X10^3/uL (2.0-7.7); Basophil# 0.01 X10^3/uL; Basophil% 0.7 % (0-1); Eosinophil# 0.01 X10^3/uL; Eosinophils% 0.7 % (0-5); Hematocrit 24.3 % (40-54); Hemoglobin 7.9 g/dL (13.0-16.5); Lymphocyte # 0.17 X10^3/ul (0.83-4.51); Lymphocyte % 11.5 % (19-41); Mean Corp Hgb Conc 32.5 g/dL (32-36); Mean Corpuscular Hgb 30.5 pg (27.0-32.0); Mean Corpuscular Volume 93.8 fL (80-94); Monocyte# 0.38 X10^3/uL; Monocyte% 25.7 % (0-10); NRBC Flagged by Analyzer 0 % (0-5); Neutrophil # 0.84 X10^3/uL (2.7-7.7); Neutrophil % 56.7 % (47-70); POSITIVE COUNT YES; POSITIVE DIFFERENTIAL YES; POSITIVE MORPHOLOGY YES; Platelet Count 277 K/mm3 (150-450); RBC Distribution Width SD 48.6 fl (35.1-43.9); Red Blood Count 2.59 M/mm3 (4.6-6.2)
[2024-01-01 05:57] LABS: White Blood Count 1.5 K/mm3 (4.4-11.0)
[2024-01-01] MEDS: Piperacil/Tazobactam 3.375 GM in 0.9% Normal Saline (50mL MB+) 50 ML IV (06:22)
[2024-01-01 07:04] LABS: Differential Indicated SCAN CRITERIA MET
--- NOTE | 2024-01-01 07:25 | PCM.PN.HOSP ---
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) Neutropenia, unspecified (12/29/23) Chronic systolic (congestive) heart failure (12/29/23) Chronic obstructive pulmonary disease, unspecified (12/29/23) Fever presenting with conditions classified elsewhere (12/29/23) Presence of other vascular implants and grafts (12/29/23) Subjective Subjective Patient is a 68-year-old gentleman with history of laryngeal CA admitted with neutropenic fever Objective Data Objective Data Vital Signs: Vital Signs Temp Pulse Resp BP Pulse Ox O2 Del Method O2 Flow Rate 98.2 F 112 H 20 H 114/82 H 100 Nasal Cannula 2 01/01/24 03:12 01/01/24 03:12 01/01/24 03:12 01/01/24 03:12 01/01/24 03:12 01/01/24 03:12 01/01/24 03:12 FiO2 35 12/30/23 23:00 Oxygen Flow Rate (L/min) 2 Oxygen Delivery Method Nasal Cannula Weight: 58.2 kg Body Mass Index (BMI) 18.9 Intake & Output: Intake and Output for Last 24 Hours 12/30/23 12/31/23 01/01/24 23:59 23:59 23:59 Intake Total 2496.67 / 2496.67 1727.83 / 1727.83 580 / 580 Output Total 1490 / 1490 200 / 200 150 / 150 Balance 1006.67 / 1006.67 1527.83 / 1527.83 430 / 430 Medical Nutrition Assessment Dietitian: Malnutrition Criteria Met Start: 12/30/23 16:44 Freq: Status: Active Protocol: Document 12/31/23 13:24 RMA (Rec: 12/31/23 13:24 RMA [id number]) Nutrition Malnutrition Evidence of Malnutrition Exists Yes Malnutrition (severe): Chronic Evidenced By Suboptimal Energy Intake ( Severe),Weight Loss (Severe), Physical Changes (Severe) Clinical Problem Chronic Disease or Condition Related Malnutrition Etiology Severe protein-calorie malnutrition in the context of chronic disease related to inadequate energy/oral intake and swallowing difficulty Signs/Symptoms as evidenced by ~8% unintentional weight loss x 3 months, severe muscle wasting and fat depletion in the clavicle, arms, legs and orbital, BMI 18.9 and PO meeting less than 50% estimated nutrition needs Status Active Problem Recommendation Dietitian Recommendations/Changes Continue regular/no added salt diet as tolerated with consistency/texture as per ABALONE FISHERMAN , pt currently on pureed food/ thin liquids. Will add ensure compact w/ breakfast and magic cup BID with lunch and dinner trays; adjust ONS as needed to encourage PO at meals. Will order nocturnal enteral nutrition support with Jevity 1.5 Nicho via PEG to start at 50mL/hr from 6 PM to 6AM and increase rate as tolerated by 10mL/hr Q 6-8 hours to goal rate 80mL/hr. Flush with 180mL Q 6 hours. TF at goal rate 80mL/hr and water flushes will provide 1440 kcal, 61 gm pro and 1450 mL/free water. Will monitor tolerance to enteral nutrition support, weight, labs and adjust TF as needed. Lab / Micro Data 01/01/24 10:16 01/01/24 04:20 Labs: Laboratory Results - last 24 hr 12/31/23 05:17: Differential Comment SCANNED 12/31/23 16:12: Vancomycin Trough 6.3 01/01/24 04:20: WBC 1.5 L*, RBC 2.59 L, Hgb 7.9 L, Hct 24.3 L, MCV 93.8, MCH 30.5, MCHC 32.5, RDW Std Deviation 48.6 H, RDW Coeff of Elidia 15.0 H, Plt Count 277, MPV 9.0, Immature Gran % (Auto) 4.700 H, Neut % (Auto) 56.7, Lymph % (Auto) 11.5 L, [place] % (Auto) 25.7 H, Eos % (Auto) 0.7, Baso % (Auto) 0.7, Absolute Neuts (auto) 0.8 L, Absolute Lymphs (auto) 0.17 L, Nucleated RBC % 0, Diff Path Review September foll, Sodium 135 L, Potassium 3.3 L, Chloride 102, Carbon Dioxide 30.0, Anion Gap 3 L, BUN 10, Creatinine 0.41 L, Estim Creat Clear Calc 72.75, Est GFR (MDRD) Af Amer 267, Est GFR (MDRD) Non-Af 221, BUN/Creatinine Ratio 24.4 H, Glucose 133 H, Calcium 8.4 L Micro: Microbiology 12/29/23 12:46 Sputum, Tracheal Aspirate Gram Stain - Final 12/29/23 12:46 Sputum, Tracheal Aspirate Respiratory Culture - Preliminary GNR lactose hotel reservationist Gram negative aleisha 12/29/23 16:00 Wound Abcess - Neck Gram Stain - Final 12/29/23 16:00 Wound Abcess - Neck Wound Culture - Preliminary Gram positive aleisha 12/29/23 12:05 Urine, Clean Catch Urine Culture - Final Mixed Gram Positive Organisms 12/29/23 18:00 Mucosa - Nose Respiratory Panel (PCR) - Final 12/29/23 11:45 Mucosa - Nose SARS-CoV-2, Influenza & RSV (PCR) - Final Physical Exam Narrative GENERAL: Frail looking HEENT: Tracheostomy in place with radiation tanner around the neck EYES; Anicteric, Normal Conjunctiva NECK; supple, normal thyroid, RESPIRATORY: Diminished to auscultation CARDIOVASCULAR: Regular S1 S2, GI: soft, normoactive bowel sounds, : No Renal angle tenderness; EXTREMITIES: No edema, no clubbing, MUSCULOSKELETAL: no muscle wasting NEURO: Awake; no lateralizing signs. SKIN: No Rash PSYCH; Flat affect Assessment & Plan Assessment/Plan (1) Fever and neutropenia: PLAN: Plan Patient is a 68-year-old gentleman with history of laryngeal CA admitted with neutropenic fever 1. Neutropenic fever ? Suspected to be secondary to tracheitis sputum cultures grew E. coli, Enterobacter as well as Klebsiella. Patient has so far been managed with Zosyn. Wound culture grew corynebacterium straitum. Dr. Puckett with 2. Laryngeal CA ? Status post tracheostomy on 10/19/2023 patient is currently undergoing chemo and radiation as outpatient 3. Paroxysmal A-fib ? Patient remains in sinus rhythm 4. COPD ? Not in exacerbation did continue patient bronchodilator treatment as needed 5. Chronic congestive heart failure with reduced ejection fraction ? Patient has EF of 40% patient is on furosemide as well as ANA inhibitors 6. Severe protein calorie malnutrition ? Evidenced by suboptimal energy level severe weight loss consult placed to dietitian 7. Essential benign hypertension ? Patient is on lisinopril 8. Dyslipidemia ? Patient is on statin therapy 9. Depression ? Patient is on Wellbutrin at night 10. DVT prophylaxis ? Enoxaparin Time spent in the patient's overall evaluation,decision-making process, review of diagnostic data, adjustment of management, discussion with other providers, nursing nursing and ancillary staff involved in patient's care documentation, 40 Minutes Charges/Coding Visit Charges Inpatient E&M: 90990 Subs Hosp L2
[2024-01-01] MEDS: Ipratropium/Albuterol Sulfate 3 ML AMPUL.NEB INHALATION ×3 (07:56→19:40)
--- NOTE | 2024-01-01 10:03 | CASEMGMT ---
LIAM sent updates to [facility] via [employer]. LIAM also let them know patient may return over the weekend. Plan: d/c back to [facility] under skilled level of care. Mary Anne SCHILLING
[2024-01-01] MEDS: guaiFENesin 10 ML UDC (200MG/10ML) 20 ML GT ×2 (10:14→15:48)
[2024-01-01] MEDS: Aspirin 81 MG TAB.CHEW GT (10:15)
[2024-01-01] MEDS: Carvedilol 6.25 MG Tablet GT ×2 (10:15→21:22)
[2024-01-01] MEDS: Silver Sulfadiazine 1% Crm 50 gm Bottle 1 APPLIC TOPICAL ×2 (10:15→21:20)
[2024-01-01] MEDS: buPROPion 75 MG Tablet GT ×2 (10:15→21:23)
[2024-01-01] MEDS: Enoxaparin 40 MG/0.4 ML Syringe SC (10:15)
[2024-01-01] MEDS: Lisinopril 2.5 MG Tablet GT (10:18)
[2024-01-01 10:34] LABS: Absolute Lymphocyte Count 0.23 X10^3/uL (0.83-4.51); Absolute Neutrophil Count 1.8 X10^3/uL (2.0-7.7); Basophil# 0.04 X10^3/uL; Basophil% 1.4 % (0-1); Hematocrit 28.5 % (40-54); Hemoglobin 9.4 g/dL (13.0-16.5); Lymphocyte # 0.23 X10^3/ul (0.83-4.51); Lymphocyte % 7.8 % (19-41); Mean Corpuscular Hgb 30.5 pg (27.0-32.0); Mean Corpuscular Volume 92.5 fL (80-94); Mean Platelet Vol. 8.9 fl (6.2-12.0); Monocyte# 0.78 X10^3/uL; Monocyte% 26.4 % (0-10); NRBC Flagged by Analyzer 0 % (0-5); Neutrophil # 1.81 X10^3/uL (2.7-7.7); POSITIVE DIFFERENTIAL YES; POSITIVE MORPHOLOGY YES; Platelet Count 332 K/mm3 (150-450); RBC Distribution Width CV 15.1 % (11.6-14.6); RBC Distribution Width SD 48.8 fl (35.1-43.9); Red Blood Count 3.08 M/mm3 (4.6-6.2)
[2024-01-01 10:45] LABS: Differential Indicated SCAN CRITERIA MET
[2024-01-01] MEDS: Albuterol 2.5 MG/3 ML VIAL.NEB. INHALATION (10:51)
[2024-01-01 10:59] LABS: Pathologist Review Reviewed
[2024-01-01 11:03] LABS: Pathologist Review Reviewed
[2024-01-01 14:01] LABS: Differential Comment SCANNED; Dohle Bodies 1+; Red Cell Morphology NORM C+C NORMAL (NORM C&C); Toxic Granulation 2+
--- NOTE | 2024-01-01 14:30 | PN.ID_ITS ---
Physical Exam Narrative Feeling better, no fever, less cough/dyspnea Const alert and no apparent distress Resp Auscultation: rhonchi Cardio regular rate and regular rhythm GI soft to palpation, non-tender and non-distended Extremity Extremity Narrative: neck redness ID ID: Route of nutrition/ use of supplements: [] Nutritional Intake: [] IV Site: [] Bansal Catheter: [] Assessment & Plan Assessment/Plan (1) Fever and neutropenia: PLAN: ANC now over 1000. Treating for pneumonia. Sputum with ecoli, enterobac ter, and klebs. Wound cx of neck with heavy diphtheroids. Port in place, bcx ngtd. Will narrow to cipro/doxycycline. Plan on one more week of abx. Will follow (2) Laryngeal cancer: (3) Port-A-Cath in place:
[2024-01-01] MEDS: Ciprofloxacin 500 MG Tablet PO ×2 (16:32→21:21)
[2024-01-01] MEDS: Jevity 1.5 1,000 ML 50 ML GT (17:53)
--- NOTE | 2024-01-01 19:40 | CPS ---
Decreased O2 to 4 LPM
[2024-01-01] MEDS: Atorvastatin Calcium 40 MG Tablet GT (21:23)
[2024-01-01] MEDS: DOXYCYCLINE HYCLATE 100 MG TABLET PO (21:24)
[2024-01-02] VITALS (10 sets, daily range): BP systolic 108–125; BP diastolic 65–84; PULSE 90–120; RESP 18–22; TEMP 36.2–36.6; O2SAT 94–100; BMI 18.8
[2024-01-02] MEDS: Jevity 1.5 1,000 ML 60 ML GT (06:20)
[2024-01-02 06:51] LABS: Absolute Lymphocyte Count 0.18 X10^3/uL (0.83-4.51); Absolute Neutrophil Count 1.4 X10^3/uL (2.0-7.7); Basophil# 0.02 X10^3/uL; Basophil% 0.9 % (0-1); Hematocrit 28.2 % (40-54); Lymphocyte # 0.18 X10^3/ul (0.83-4.51); Lymphocyte % 7.9 % (19-41); Mean Corp Hgb Conc 31.9 g/dL (32-36); Mean Corpuscular Hgb 30.2 pg (27.0-32.0); Mean Corpuscular Volume 94.6 fL (80-94); Mean Platelet Vol. 9.1 fl (6.2-12.0); Monocyte% 26.4 % (0-10); NRBC Flagged by Analyzer 0 % (0-5); Neutrophil # 1.39 X10^3/uL (2.7-7.7); Neutrophil % 61.3 % (47-70); POSITIVE DIFFERENTIAL YES; POSITIVE MORPHOLOGY YES; Platelet Count 346 K/mm3 (150-450); RBC Distribution Width CV 15.1 % (11.6-14.6); RBC Distribution Width SD 49.1 fl (35.1-43.9); Red Blood Count 2.98 M/mm3 (4.6-6.2); White Blood Count 2.3 K/mm3 (4.4-11.0)
[2024-01-02] MEDS: Ipratropium/Albuterol Sulfate 3 ML AMPUL.NEB INHALATION ×3 (06:59→20:05)
--- NOTE | 2024-01-02 07:09 | PN.HOSP_ITS ---
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) Neutropenia, unspecified (12/29/23) Chronic systolic (congestive) heart failure (12/29/23) Chronic obstructive pulmonary disease, unspecified (12/29/23) Fever presenting with conditions classified elsewhere (12/29/23) Presence of other vascular implants and grafts (12/29/23) Subjective Subjective Patient seen remains significantly frail. Potassium down to 3.1 additional replacement given hemoglobin down to 9.0. Antibiotic therapy adjusted by ID the day prior. Objective Data Objective Data Vital Signs: Vital Signs Temp Pulse Resp BP Pulse Ox O2 Del Method O2 Flow Rate 98 F 120 H 20 H 119/72 94 Trach Collar 4 01/02/24 05:55 01/02/24 07:00 01/02/24 07:00 01/02/24 05:55 01/02/24 07:00 01/02/24 07:00 01/02/24 07:00 FiO2 35 12/30/23 23:00 Oxygen Flow Rate (L/min) 4 Oxygen Delivery Method Trach Collar Weight: 57.9 kg Body Mass Index (BMI) 18.8 Intake & Output: Intake and Output for Last 24 Hours 12/31/23 01/01/24 01/02/24 23:59 23:59 23:59 Intake Total 1727.83 / 1727.83 1297.5 / 1297.5 622.5 / 622.5 Output Total 200 / 200 975 / 975 325 / 325 Balance 1527.83 / 1527.83 322.5 / 322.5 297.5 / 297.5 Medical Nutrition Assessment Dietitian: Malnutrition Criteria Met Start: 12/30/23 16:44 Freq: Status: Active Protocol: Document 12/31/23 13:24 RMA (Rec: 12/31/23 13:24 RMA [id number]) Nutrition Malnutrition Evidence of Malnutrition Exists Yes Malnutrition (severe): Chronic Evidenced By Suboptimal Energy Intake ( Severe),Weight Loss (Severe), Physical Changes (Severe) Clinical Problem Chronic Disease or Condition Related Malnutrition Etiology Severe protein-calorie malnutrition in the context of chronic disease related to inadequate energy/oral intake and swallowing difficulty Signs/Symptoms as evidenced by ~8% unintentional weight loss x 3 months, severe muscle wasting and fat depletion in the clavicle, arms, legs and orbital, BMI 18.9 and PO meeting less than 50% estimated nutrition needs Status Active Problem Recommendation Dietitian Recommendations/Changes Continue regular/no added salt diet as tolerated with consistency/texture as per LITERACY EDUCATION PROFESSOR , pt currently on pureed food/ thin liquids. Will add ensure compact w/ breakfast and magic cup BID with lunch and dinner trays; adjust ONS as needed to encourage PO at meals. Will order nocturnal enteral nutrition support with Jevity 1.5 Nicho via PEG to start at 50mL/hr from 6 PM to 6AM and increase rate as tolerated by 10mL/hr Q 6-8 hours to goal rate 80mL/hr. Flush with 180mL Q 6 hours. TF at goal rate 80mL/hr and water flushes will provide 1440 kcal, 61 gm pro and 1450 mL/free water. Will monitor tolerance to enteral nutrition support, weight, labs and adjust TF as needed. Lab / Micro Data 01/02/24 06:30 01/02/24 06:30 Labs: Laboratory Results - last 24 hr 12/31/23 05:17: Diff Path Review Reviewed 01/01/24 04:20: Diff Path Review Reviewed 01/01/24 10:16: WBC 3.0 L, RBC 3.08 L, Hgb 9.4 L, Hct 28.5 L, MCV 92.5, MCH 30.5, MCHC 33.0, RDW Std Deviation 48.8 H, RDW Coeff of Elidia 15.1 H, Plt Count 332, MPV 8.9, Immature Gran % (Auto) 3.400 H, Neut % (Auto) 61.0, Lymph % (Auto) 7.8 L, [place] % (Auto) 26.4 H, Eos % (Auto) 0.0, Baso % (Auto) 1.4 H, Absolute Neuts (auto) 1.8 L, Absolute Lymphs (auto) 0.23 L, Nucleated RBC % 0, Differential Comment SCANNED, Toxic Granulation 2+, Dohle Bodies 1+, RBC Morphology NORM C+C Micro: Microbiology 12/29/23 11:45 Blood Culture (Wb) - Port Blood Culture - Preliminary No growth in 48 hours. 12/29/23 10:32 Blood Culture (Wb) - Venous Blood Culture - Preliminary No growth in 48 hours. 12/29/23 16:00 Wound Abcess - Neck Gram Stain - Final 12/29/23 16:00 Wound Abcess - Neck Wound Culture - Final Corynebacterium striatum 12/29/23 12:46 Sputum, Tracheal Aspirate Gram Stain - Final 12/29/23 12:46 Sputum, Tracheal Aspirate Respiratory Culture - Final Escherichia coli Enterobacter cloacae complex Klebsiella oxytoca 12/29/23 12:05 Urine, Clean Catch Urine Culture - Final Mixed Gram Positive Organisms 12/29/23 18:00 Mucosa - Nose Respiratory Panel (PCR) - Final 12/29/23 11:45 Mucosa - Nose SARS-CoV-2, Influenza & RSV (PCR) - Final Physical Exam Narrative GENERAL: Frail looking HEENT: Tracheostomy in place with radiation tanner around the neck EYES; Anicteric, Normal Conjunctiva NECK; supple, normal thyroid, RESPIRATORY: Diminished to auscultation CARDIOVASCULAR: Regular S1 S2, GI: soft, normoactive bowel sounds, : No Renal angle tenderness; EXTREMITIES: No edema, no clubbing, MUSCULOSKELETAL: no muscle wasting NEURO: Awake; no lateralizing signs. SKIN: No Rash PSYCH; Flat affect Assessment & Plan Assessment/Plan (1) Fever and neutropenia: PLAN: Plan Patient is a 68-year-old gentleman with history of laryngeal CA admitted with neutropenic fever 1. Neutropenic fever ? Suspected to be secondary to tracheitis sputum cultures grew E. coli, Enterobacter as well as Klebsiella. Patient has so far been managed with Zosyn. Wound culture grew corynebacterium straitum. Dr. Puckett with infectious disease ? 01/02/2024; patient antibiotic therapy adjusted by ID with initiation of ciprofloxacin and doxycycline via PEG tube the day prior. 2. Laryngeal CA ? Status post tracheostomy on 10/19/2023 patient is currently undergoing chemo and radiation as outpatient 3. Paroxysmal A-fib ? Patient remains in sinus rhythm 4. COPD ? Not in exacerbation did continue patient bronchodilator treatment as needed 5. Chronic congestive heart failure with reduced ejection fraction ? Patient has EF of 40% patient is on furosemide as well as ANA inhibitors 6. Severe protein calorie malnutrition ? Evidenced by suboptimal energy level severe weight loss consult placed to dietitian 7. Essential benign hypertension ? Patient is on lisinopril 8. Dyslipidemia ? Patient is on statin therapy 9. Depression ? Patient is on Wellbutrin at night 10. Anemia - Secondary to chronic disorder monitoring H&H and transfuse if patient becomes symptomatic or hemoglobin falls below 7 11. Hypokalemia -Corrected per protocol 12. Physical deconditioning - Requested for PT OT eval and social science analyst to assist with discharge planning 13. DVT prophylaxis ? Enoxaparin Time spent in the patient's overall evaluation,decision-making process, review of diagnostic data, adjustment of management, discussion with other providers, nursing nursing and ancillary staff involved in patient's care documentation, 38 Minutes Charges/Coding Visit Charges Inpatient E&M: 71223 Subs Hosp L2
[2024-01-02 07:13] LABS: Anion Gap 5 (5-15); BUN 11 mg/dL (7-18); BUN/Creat Ratio 15.5 RATIO (10-20); Calcium,Total 9.1 mg/dL (8.5-10.1); Chloride 103 mmol/L (98-107); Creatinine, Serum 0.71 mg/dL (0.70-1.30); EST Glomerular Filtration Rate 117 mL/min (>60); Est Glom Filt Rate - Afr Amer 141 mL/min (>60); Estimated Creatinine Clearance 72.38 ml/min; Glucose 147 mg/dL (74-106); Magnesium 1.7 mg/dL (1.6-2.6); Phosphorus 3.5 mg/dL (2.5-4.9); Potassium 3.1 mmol/L (3.5-5.1); Sodium Level 141 mmol/L (136-145)
[2024-01-02] MEDS: Potassium Chloride 10mEq/100mL 10 MEQ/100 ML IV.SOLN. 100 MEQ IV BOLUS ×4 (08:46→12:25)
[2024-01-02 09:13] LABS: Differential Indicated SCAN CRITERIA MET
[2024-01-02] MEDS: Carvedilol 6.25 MG Tablet GT ×2 (10:03→21:36)
[2024-01-02] MEDS: Enoxaparin 40 MG/0.4 ML Syringe SC (10:03)
[2024-01-02] MEDS: Aspirin 81 MG TAB.CHEW GT (10:04)
[2024-01-02] MEDS: Ciprofloxacin 500 MG Tablet PO (10:04)
[2024-01-02] MEDS: Lisinopril 2.5 MG Tablet GT (10:04)
[2024-01-02] MEDS: buPROPion 75 MG Tablet GT ×2 (10:05→21:39)
[2024-01-02] MEDS: Silver Sulfadiazine 1% Crm 50 gm Bottle 1 APPLIC TOPICAL ×2 (10:05→21:38)
[2024-01-02 10:06] LABS: Absolute Lymphocyte Count 0.19 X10^3/uL (0.83-4.51); Absolute Neutrophil Count 1.6 X10^3/uL (2.0-7.7); Basophil# 0.02 X10^3/uL; Basophil% 0.8 % (0-1); Hematocrit 27.9 % (40-54); Lymphocyte # 0.19 X10^3/ul (0.83-4.51); Lymphocyte % 7.4 % (19-41); Mean Corp Hgb Conc 32.3 g/dL (32-36); Monocyte# 0.67 X10^3/uL; Monocyte% 26.1 % (0-10); NRBC Flagged by Analyzer 0 % (0-5); Neutrophil # 1.63 X10^3/uL (2.7-7.7); Neutrophil % 63.4 % (47-70); POSITIVE DIFFERENTIAL YES; POSITIVE MORPHOLOGY YES; Platelet Count 334 K/mm3 (150-450); RBC Distribution Width CV 15.1 % (11.6-14.6); White Blood Count 2.6 K/mm3 (4.4-11.0)
[2024-01-02 10:17] LABS: Differential Indicated SCAN CRITERIA MET
[2024-01-02] MEDS: DOXYCYCLINE HYCLATE 100 MG TABLET PO (10:28)
[2024-01-02] MEDS: guaiFENesin 10 ML UDC (200MG/10ML) 20 ML GT ×2 (10:56→15:34)
[2024-01-02] MEDS: MorphINE SOLN 10 MG/0.5 ML PO.SYRINGE GT (15:34)
[2024-01-02] MEDS: Jevity 1.5 1,000 ML 70 ML GT (15:35)
--- NOTE | 2024-01-02 20:05 | CPS ---
Decreased O2 to 3 lpm via trach collar
[2024-01-02] MEDS: Ciprofloxacin 500 MG Tablet GT (21:35)
[2024-01-02] MEDS: Atorvastatin Calcium 40 MG Tablet GT (21:36)
[2024-01-02] MEDS: Doxycycline 100 MG CAPSULE GT (21:38)
--- NOTE | 2024-01-02 21:58 | NURSING ---
Skin on neck cleaned with saline and 4x4 wipes. med applied as ordered. Trach chare given. Peg tube flushed. 0 residual. Meds given. Flushed again. Hooked back up to tube feed. 80cc/hr. HOB elevated. 45 degress. Pt denies any needs.
--- NOTE | 2024-01-02 23:36 | NURSING ---
Pt has moist cough, outer trach suctioned as pt coughed up moderate amount of white phlegm.
[2024-01-03] VITALS (7 sets, daily range): BP systolic 94–122; BP diastolic 61–80; PULSE 100–116; RESP 16–22; TEMP 36.4–36.6; O2SAT 91–100; BMI 18.3
[2024-01-03 05:34] LABS: Absolute Lymphocyte Count 0.19 X10^3/uL (0.83-4.51); Absolute Neutrophil Count 1.8 X10^3/uL (2.0-7.7); Hematocrit 26.1 % (40-54); Hemoglobin 8.6 g/dL (13.0-16.5); Lymphocyte # 0.19 X10^3/ul (0.83-4.51); Lymphocyte % 7.1 % (19-41); Mean Corpuscular Volume 94.2 fL (80-94); Mean Platelet Vol. 8.8 fl (6.2-12.0); Monocyte# 0.67 X10^3/uL; Monocyte% 24.9 % (0-10); NRBC Flagged by Analyzer 0 % (0-5); Neutrophil # 1.79 X10^3/uL (2.7-7.7); Neutrophil % 66.5 % (47-70); POSITIVE DIFFERENTIAL YES; Platelet Count 346 K/mm3 (150-450); RBC Distribution Width CV 15.3 % (11.6-14.6); RBC Distribution Width SD 48.8 fl (35.1-43.9); Red Blood Count 2.77 M/mm3 (4.6-6.2); White Blood Count 2.7 K/mm3 (4.4-11.0)
[2024-01-03 06:05] LABS: Anion Gap 5 (5-15); BUN 13 mg/dL (7-18); Calcium,Total 8.8 mg/dL (8.5-10.1); Chloride 101 mmol/L (98-107); Creatinine, Serum 0.59 mg/dL (0.70-1.30); EST Glomerular Filtration Rate 145 mL/min (>60); Est Glom Filt Rate - Afr Amer 175 mL/min (>60); Estimated Creatinine Clearance 72.38 ml/min; Glucose 137 mg/dL (74-106); Potassium 3.6 mmol/L (3.5-5.1); Sodium Level 139 mmol/L (136-145)
[2024-01-03 06:23] LABS: Differential Indicated SCAN CRITERIA MET
[2024-01-03] MEDS: Jevity 1.5 1,000 ML 80 ML GT (06:37)
[2024-01-03] MEDS: Ipratropium/Albuterol Sulfate 3 ML AMPUL.NEB INHALATION ×2 (07:00→13:00)
--- NOTE | 2024-01-03 08:08 | PCM.PN.HOSP ---
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) Neutropenia, unspecified (12/29/23) Chronic systolic (congestive) heart failure (12/29/23) Chronic obstructive pulmonary disease, unspecified (12/29/23) Fever presenting with conditions classified elsewhere (12/29/23) Presence of other vascular implants and grafts (12/29/23) Objective Data Objective Data Vital Signs: Vital Signs Temp Pulse Resp BP Pulse Ox O2 Del Method O2 Flow Rate 97.6 F L 105 H 22 H 112/72 92 Trach Collar 3 01/03/24 02:00 01/03/24 07:00 01/03/24 07:00 01/03/24 02:00 01/03/24 07:00 01/03/24 07:00 01/03/24 07:00 FiO2 35 12/30/23 23:00 Oxygen Flow Rate (L/min) 3 Oxygen Delivery Method Trach Collar Weight: 56.2 kg Body Mass Index (BMI) 18.3 Intake & Output: Intake and Output for Last 24 Hours 01/01/24 01/02/24 01/03/24 23:59 23:59 23:59 Intake Total 1297.5 / 1297.5 1860.17 / 1860.17 727 / 727 Output Total 975 / 975 325 / 925 1200 / 1200 Balance 322.5 / 322.5 1535.17 / 935.17 -473 / -473 Medical Nutrition Assessment Dietitian: Malnutrition Criteria Met Start: 12/30/23 16:44 Freq: Status: Active Protocol: Document 12/31/23 13:24 RMA (Rec: 12/31/23 13:24 RMA [id number]) Nutrition Malnutrition Evidence of Malnutrition Exists Yes Malnutrition (severe): Chronic Evidenced By Suboptimal Energy Intake ( Severe),Weight Loss (Severe), Physical Changes (Severe) Clinical Problem Chronic Disease or Condition Related Malnutrition Etiology Severe protein-calorie malnutrition in the context of chronic disease related to inadequate energy/oral intake and swallowing difficulty Signs/Symptoms as evidenced by ~8% unintentional weight loss x 3 months, severe muscle wasting and fat depletion in the clavicle, arms, legs and orbital, BMI 18.9 and PO meeting less than 50% estimated nutrition needs Status Active Problem Recommendation Dietitian Recommendations/Changes Continue regular/no added salt diet as tolerated with consistency/texture as per INDUSTRIAL WELDER , pt currently on pureed food/ thin liquids. Will add ensure compact w/ breakfast and magic cup BID with lunch and dinner trays; adjust ONS as needed to encourage PO at meals. Will order nocturnal enteral nutrition support with Jevity 1.5 Nicho via PEG to start at 50mL/hr from 6 PM to 6AM and increase rate as tolerated by 10mL/hr Q 6-8 hours to goal rate 80mL/hr. Flush with 180mL Q 6 hours. TF at goal rate 80mL/hr and water flushes will provide 1440 kcal, 61 gm pro and 1450 mL/free water. Will monitor tolerance to enteral nutrition support, weight, labs and adjust TF as needed. Lab / Micro Data 01/03/24 05:15 01/03/24 05:15 Labs: Laboratory Results - last 24 hr 01/02/24 06:30: Diff Path Review September01/02/24 10:00: WBC 2.6 L, RBC 3.00 L, Hgb 9.0 L, Hct 27.9 L, MCV 93.0, MCH 30.0, MCHC 32.3, RDW Std Deviation 49.0 H, RDW Coeff of Elidia 15.1 H, Plt Count 334, MPV 9.0, Immature Gran % (Auto) 2.300 H, Neut % (Auto) 63.4, Lymph % (Auto) 7.4 L, [place] % (Auto) 26.1 H, Eos % (Auto) 0.0, Baso % (Auto) 0.8, Absolute Neuts (auto) 1.6 L, Absolute Lymphs (auto) 0.19 L, Nucleated RBC % 0, Diff Path Review September01/03/24 05:15: WBC 2.7 L, RBC 2.77 L, Hgb 8.6 L, Hct 26.1 L, MCV 94.2 H, MCH 31.0, MCHC 33.0, RDW Std Deviation 48.8 H, RDW Coeff of Elidia 15.3 H, Plt Count 346, MPV 8.8, Immature Gran % (Auto) 1.500 H, Neut % (Auto) 66.5, Lymph % (Auto) 7.1 L, [place] % (Auto) 24.9 H, Eos % (Auto) 0.0, Baso % (Auto) 0.0, Absolute Neuts (auto) 1.8 L, Absolute Lymphs (auto) 0.19 L, Nucleated RBC % 0, Sodium 139, Potassium 3.6, Chloride 101, Carbon Dioxide 33.0 H, Anion Gap 5, BUN 13, Creatinine 0.59 L, Estim Creat Clear Calc 72.38, Est GFR (MDRD) Af Amer 175, Est GFR (MDRD) Non-Af 145, BUN/Creatinine Ratio 22.0 H, Glucose 137 H, Calcium 8.8 Micro: Microbiology 12/29/23 11:45 Blood Culture (Wb) - Port Blood Culture - Preliminary No growth in 48 hours. 12/29/23 10:32 Blood Culture (Wb) - Venous Blood Culture - Preliminary No growth in 48 hours. 12/29/23 16:00 Wound Abcess - Neck Gram Stain - Final 12/29/23 16:00 Wound Abcess - Neck Wound Culture - Final Corynebacterium striatum 12/29/23 12:46 Sputum, Tracheal Aspirate Gram Stain - Final 12/29/23 12:46 Sputum, Tracheal Aspirate Respiratory Culture - Final Escherichia coli Enterobacter cloacae complex Klebsiella oxytoca 12/29/23 12:05 Urine, Clean Catch Urine Culture - Final Mixed Gram Positive Organisms 12/29/23 18:00 Mucosa - Nose Respiratory Panel (PCR) - Final 12/29/23 11:45 Mucosa - Nose SARS-CoV-2, Influenza & RSV (PCR) - Final Physical Exam Narrative GENERAL: Frail looking HEENT: Tracheostomy in place with radiation tanner around the neck EYES; Anicteric, Normal Conjunctiva NECK; supple, normal thyroid, RESPIRATORY: Diminished to auscultation CARDIOVASCULAR: Regular S1 S2, GI: soft, normoactive bowel sounds, : No Renal angle tenderness; EXTREMITIES: No edema, no clubbing, MUSCULOSKELETAL: no muscle wasting NEURO: Awake; no lateralizing signs. SKIN: No Rash PSYCH; Flat affect Assessment & Plan Assessment/Plan (1) Fever and neutropenia: PLAN: Plan Patient is a 68-year-old gentleman with history of laryngeal CA admitted with neutropenic fever 1. Neutropenic fever ? Suspected to be secondary to tracheitis sputum cultures grew E. coli, Enterobacter as well as Klebsiella. Patient has so far been managed with Zosyn. Wound culture grew corynebacterium straitum. Dr. Puckett with infectious disease ? 01/02/2024; patient antibiotic therapy adjusted by ID with initiation of ciprofloxacin and doxycycline via PEG tube the day prior. 2. Laryngeal CA ? Status post tracheostomy on 10/19/2023 patient is currently undergoing chemo and radiation as outpatient 3. Paroxysmal A-fib ? Patient remains in sinus rhythm 4. COPD ? Not in exacerbation did continue patient bronchodilator treatment as needed 5. Chronic congestive heart failure with reduced ejection fraction ? Patient has EF of 40% patient is on furosemide as well as ANA inhibitors 6. Severe protein calorie malnutrition ? Evidenced by suboptimal energy level severe weight loss consult placed to dietitian 7. Essential benign hypertension ? Patient is on lisinopril 8. Dyslipidemia ? Patient is on statin therapy 9. Depression ? Patient is on Wellbutrin at night 10. Anemia - Secondary to chronic disorder monitoring H&H and transfuse if patient becomes symptomatic or hemoglobin falls below 7 11. Hypokalemia -Corrected per protocol 12. Physical deconditioning - Requested for PT OT eval and social media senior associate to assist with discharge planning 13. DVT prophylaxis ? Enoxaparin Time spent in the patient's overall evaluation,decision-making process, review of diagnostic data, adjustment of management, discussion with other providers, nursing nursing and ancillary staff involved in patient's care documentation, 38 Minutes
[2024-01-03] MEDS: Carvedilol 6.25 MG Tablet GT (09:36)
[2024-01-03] MEDS: Enoxaparin 40 MG/0.4 ML Syringe SC (09:36)
[2024-01-03] MEDS: Silver Sulfadiazine 1% Crm 50 gm Bottle 1 APPLIC TOPICAL (09:36)
[2024-01-03] MEDS: Aspirin 81 MG TAB.CHEW GT (09:37)
[2024-01-03] MEDS: Ciprofloxacin 500 MG Tablet GT (09:37)
[2024-01-03] MEDS: Lisinopril 2.5 MG Tablet GT (09:37)
[2024-01-03] MEDS: buPROPion 75 MG Tablet GT (09:38)
[2024-01-03] MEDS: Doxycycline 100 MG CAPSULE GT (09:38)
[2024-01-03] MEDS: guaiFENesin 10 ML UDC (200MG/10ML) 20 ML GT ×2 (09:45→13:15)
--- NOTE | 2024-01-03 11:27 | PCM.DC.SUM ---
Providers Date of Admission: 12/29/23 Date of Discharge: 01/03/24 Primary Care Physician: Dr. Juan Rai, DO Consultations 12/29/23 15:51 Consult: Onc/Wound/drupal architect Routine Comment: Reason for Consult:: neck wounds d/t radiation 12/30/23 09:30 Consult: Infectious Disease Routine Consulting Provider: Sergio Puckett Reason for Consult: Neutropenic fever EMERGENT Consult: No MD Notified: Yes Date Notified: 12/30/23 Time Notified: 09:30 Method of Notification: Verbal Reason For Visit: NEUTROPENIC FEVER Diagnosis Discharge Diagnosis (1) Fever and neutropenia: Status: Acute Code(s): D70.9 - Neutropenia, unspecified; R50.81 - Fever presenting with conditions classified elsewhere Plan Patient is a 68-year-old gentleman with history of laryngeal CA admitted with neutropenic fever 1. Neutropenic fever ? Suspected to be secondary to tracheitis sputum cultures grew E. coli, Enterobacter as well as Klebsiella. Patient has so far been managed with Zosyn. Wound culture grew corynebacterium straitum. Dr. Puckett with infectious disease ? 01/02/2024; patient antibiotic therapy adjusted by ID with initiation of ciprofloxacin and doxycycline via PEG tube the day prior. 2. Laryngeal CA ? Status post tracheostomy on 10/19/2023 patient is currently undergoing chemo and radiation as outpatient 3. Paroxysmal A-fib ? Patient remains in sinus rhythm 4. COPD ? Not in exacerbation did continue patient bronchodilator treatment as needed 5. Chronic congestive heart failure with reduced ejection fraction ? Patient has EF of 40% patient is on furosemide as well as ANA inhibitors 6. Severe protein calorie malnutrition ? Evidenced by suboptimal energy level severe weight loss consult placed to dietitian 7. Essential benign hypertension ? Patient is on lisinopril 8. Dyslipidemia ? Patient is on statin therapy 9. Depression ? Patient is on Wellbutrin at night 10. Anemia - Secondary to chronic disorder monitoring H&H and transfuse if patient becomes symptomatic or hemoglobin falls below 7 11. Hypokalemia -Corrected per protocol 12. Physical deconditioning - Requested for PT OT eval and social worker palliative care to assist with discharge planning 13. DVT prophylaxis ? Enoxaparin Time spent in the patient's overall evaluation,decision-making process, review of diagnostic data, adjustment of management, discussion with other providers, nursing nursing and ancillary staff involved in patient's care documentation, 38 Minutes Medications at Discharge Home Medications atorvastatin 40 mg tablet 40 mg PO QHS Cholesterol #30 tabs 10/15/23 acetaminophen 325 mg tablet 650 mg (2 x 325 mg) PO Q4H PRN PRN Pain Score 1-10 #0 tabs 10/23/23 aspirin 81 mg tablet,delayed release 81 mg PO BREAKFAST #0 tabs 11/26/23 bupropion HCl 75 mg tablet 75 mg PO BID #0 tabs 11/26/23 carvedilol 3.125 mg tablet 3.125 mg PO BID #0 tabs 11/26/23 ipratropium 0.5 mg-albuterol 3 mg (2.5 mg base)/3 mL nebulization soln 3 ml inhalation TID.RT #0 mL 11/26/23 lisinopril 2.5 mg tablet 2.5 mg PO DAILY #0 tabs 11/26/23 menthol 0.44 %-zinc oxide 20.6 % topical ointment (Calmoseptine) 1 applic topical BID #0 grams 11/26/23 potassium chloride 20 mEq tablet,extended release(part/cryst) 20 meq PO DAILYCM #0 tabs 11/26/23 sennosides 8.6 mg-docusate sodium 50 mg tablet (Stool Softener-Stimulant Laxative) 2 tab PO BID #0 tabs 11/26/23 thiamine HCl (vitamin B1) 100 mg tablet (Vitamin B-1) 100 mg PO DAILYCM #0 tabs 11/26/23 silver sulfadiazine 1 % topical cream (Silvadene) 1 applic topical BID #85 grams 12/21/23 guaifenesin 100 mg/5 mL oral liquid (Adult Tussin Chest Congestion) 400 mg PO Q6H PRN congestion 12/29/23 morphine 10 mg/5 mL oral solution 10 mg (5 mL) sublingual Q6H PRN pain 30 days #500 mL 12/29/23 nicotine 14 mg/24 hr daily transdermal patch 1 patch transdermal DAILY 12/29/23 ondansetron 4 mg disintegrating tablet 4 mg PO Q6H PRN nausea and vomiting 12/29/23 IV with Additives 80 mls/hr GT 01/03/24 ciprofloxacin HCl 500 mg tablet 500 mg G-tube BID 7 days #14 tabs 08/04/24 doxycycline monohydrate 100 mg capsule 100 mg G-tube BID 7 days #14 caps 01/03/24 Physical Exam Narrative GENERAL: Frail looking HEENT: Tracheostomy in place with radiation tanner around the neck EYES; Anicteric, Normal Conjunctiva NECK; supple, normal thyroid, RESPIRATORY: Diminished to auscultation CARDIOVASCULAR: Regular S1 S2, GI: soft, normoactive bowel sounds, : No Renal angle tenderness; EXTREMITIES: No edema, no clubbing, MUSCULOSKELETAL: no muscle wasting NEURO: Awake; no lateralizing signs. SKIN: No Rash PSYCH; Flat affect Medical Records Data Medical Nutrition Assessment Dietitian: Malnutrition Criteria Met Start: 12/30/23 16:44 Freq: Status: Active Protocol: Document 12/31/23 13:24 RMA (Rec: 12/31/23 13:24 RMA [id number]) Nutrition Malnutrition Evidence of Malnutrition Exists Yes Malnutrition (severe): Chronic Evidenced By Suboptimal Energy Intake ( Severe),Weight Loss (Severe), Physical Changes (Severe) Clinical Problem Chronic Disease or Condition Related Malnutrition Etiology Severe protein-calorie malnutrition in the context of chronic disease related to inadequate energy/oral intake and swallowing difficulty Signs/Symptoms as evidenced by ~8% unintentional weight loss x 3 months, severe muscle wasting and fat depletion in the clavicle, arms, legs and orbital, BMI 18.9 and PO meeting less than 50% estimated nutrition needs Status Active Problem Recommendation Dietitian Recommendations/Changes Continue regular/no added salt diet as tolerated with consistency/texture as per [employer] , pt currently on pureed food/ thin liquids. Will add ensure compact w/ breakfast and magic cup BID with lunch and dinner trays; adjust ONS as needed to encourage PO at meals. Will order nocturnal enteral nutrition support with Jevity 1.5 Nicho via PEG to start at 50mL/hr from 6 PM to 6AM and increase rate as tolerated by 10mL/hr Q 6-8 hours to goal rate 80mL/hr. Flush with 180mL Q 6 hours. TF at goal rate 80mL/hr and water flushes will provide 1440 kcal, 61 gm pro and 1450 mL/free water. Will monitor tolerance to enteral nutrition support, weight, labs and adjust TF as needed. Weight / BMI Weight Weight: 56.2 kg Body Mass Index (BMI) 18.3 ABG / Lab / Microbiology Data 01/03/24 05:15 01/03/24 05:15 Laboratory: Laboratory Results - last 24 hr 01/03/24 05:15: WBC 2.7 L, RBC 2.77 L, Hgb 8.6 L, Hct 26.1 L, MCV 94.2 H, MCH 31.0, MCHC 33.0, RDW Std Deviation 48.8 H, RDW Coeff of Elidia 15.3 H, Plt Count 346, MPV 8.8, Immature Gran % (Auto) 1.500 H, Neut % (Auto) 66.5, Lymph % (Auto) 7.1 L, Griggs % (Auto) 24.9 H, Eos % (Auto) 0.0, Baso % (Auto) 0.0, Absolute Neuts (auto) 1.8 L, Absolute Lymphs (auto) 0.19 L, Nucleated RBC % 0, Diff Path Review May foll, Sodium 139, Potassium 3.6, Chloride 101, Carbon Dioxide 33.0 H, Anion Gap 5, BUN 13, Creatinine 0.59 L, Estim Creat Clear Calc 72.38, Est GFR (MDRD) Af Amer 175, Est GFR (MDRD) Non-Af 145, BUN/Creatinine Ratio 22.0 H, Glucose 137 H, Calcium 8.8 Microbiology: Microbiology 12/29/23 10:32 Blood Culture (Wb) - Venous Blood Culture - Final No growth in 5 days. 12/29/23 11:45 Blood Culture (Wb) - Port Blood Culture - Preliminary No growth in 48 hours. 12/29/23 16:00 Wound Abcess - Neck Gram Stain - Final 12/29/23 16:00 Wound Abcess - Neck Wound Culture - Final Corynebacterium striatum 12/29/23 12:46 Sputum, Tracheal Aspirate Gram Stain - Final 12/29/23 12:46 Sputum, Tracheal Aspirate Respiratory Culture - Final Escherichia coli Enterobacter cloacae complex Klebsiella oxytoca 12/29/23 12:05 Urine, Clean Catch Urine Culture - Final Mixed Gram Positive Organisms 12/29/23 18:00 Mucosa - Nose Respiratory Panel (PCR) - Final 12/29/23 11:45 Mucosa - Nose SARS-CoV-2, Influenza & RSV (PCR) - Final D/C Instructions Discharge Diet: - (Tube feed as previously prescribed) Discharge Activity: Return to Normal Activity Call your doctor if you observe: Fever of 101 or Higher, Shortness of breath, Fainting spells and Chest pain Meaningful Use Info Meaningful Use Meaningful Use Diagnoses (Choose all that apply): None applicable Ischemic Stroke Statin Dosing Therapy Reference: STATIN DOSE THERAPY REFERENCE: * Patients > 75 years receive moderate or high dose statin therapy. * Patients 75 years or YOUNGER should receive HIGH intensity statin dose unless contraindicated. You will be required to document reason for non-treatment if statin daily dose does not meet guidelines. HIGH DOSE STATIN THERAPY DAILY Atorvastatin > than or = to 40 mg Rosuvastatin > than or = to 20 mg Amlodipine + Atorvastatin > than or = to 2.5/40 mg Ezetimibe + Simvastatin 10/80 mg Simvastatin 80mg Discharge Plan Admission Admit Date/Time: 12/29/23 14:07 Attending Provider: Mickey Palacios Primary Care Provider: Juan Rai Consulting Providers: Nadya Ferrara; Sergio Puckett; Rolly Cm Discharge Orders/Prescriptions Prescriptions: New ciprofloxacin HCl 500 mg Tablet 500 mg G-tube BID 7 Days Qty: 14 0RF doxycycline monohydrate 100 mg Capsule 100 mg G-tube BID 7 Days Qty: 14 0RF IV with Additives Jevity 1.5 1000 ML 80 mls/hr GT Ordered By: Mickey Palacios MD Last Taken: 01/03/24 06:37 80 mls/hr Continued morphine 10 mg/5 mL solution 10 mg sublingual Q6H MDD 40mg PRN (Reason: pain) 30 Days Qty: 500 0RF atorvastatin 40 mg Tablet 40 mg PO QHS Qty: 30 2RF acetaminophen 325 mg Tablet 650 mg PO Q4H PRN PRN (Reason: Pain Score 1-10) Qty: 0 0RF ipratropium-albuterol 0.5 mg-3 mg(2.5 mg base)/3 mL Solution For Nebulization 3 ml inhalation TID.RT Qty: 0 0RF sennosides-docusate sodium [Stool Softener-Stimulant Laxat] 8.6-50 mg Tablet 2 tab PO BID Qty: 0 0RF thiamine HCl (vitamin B1) [Vitamin B-1] 100 mg Tablet 100 mg PO DAILYCM Qty: 0 0RF aspirin 81 mg Tablet,Delayed Release (Dr/Ec) 81 mg PO BREAKFAST Qty: 0 0RF carvedilol 3.125 mg Tablet 3.125 mg PO BID Qty: 0 0RF potassium chloride 20 mEq Tablet,Er Particles/Crystals 20 meq PO DAILYCM Qty: 0 0RF bupropion HCl 75 mg Tablet 75 mg PO BID Qty: 0 0RF lisinopril 2.5 mg Tablet 2.5 mg PO DAILY Qty: 0 0RF menthol-zinc oxide [Calmoseptine] 0.44-20.6 % Ointment 1 applic topical BID Qty: 0 0RF Protocol: *Topical Application Instructions APPLICATION INSTRUCTIONS: Apply to buttock guaifenesin [Adult Tussin Chest Congestion] 100 mg/5 mL liquid 400 mg PO Q6H PRN (Reason: congestion) nicotine 14 mg/24 hr patch 24 hour 1 patch transdermal DAILY ondansetron 4 mg tablet,disintegrating 4 mg PO Q6H PRN (Reason: nausea and vomiting) silver sulfadiazine [Silvadene] 1 % cream 1 applic topical BID Qty: 85 3RF Rx Instructions: apply a 1.5 mm thickness Referrals / Follow Up: Juan Rai DO [Primary Care Provider] - Renan Priest DO [Med Staff - Active Staff] - In 1 Week Disposition Disposition (needs filled in before D/C Order can be placed): Home Health Service Charges/Coding Visit Charges Inpatient E&M: 86179 Disch Hosp >30min
--- NOTE | 2024-01-03 12:49 | NURSING ---
called daughters let them know plan for dc to [facility]
--- NOTE | 2024-01-03 12:58 | NURSING ---
report called to Lisette ARGUELLES at [facility]
[2024-01-03] MEDS: 0.9% Saline Lock 10 ML Syringe IV (13:07)
[2024-01-03] MEDS: MorphINE SOLN 10 MG/0.5 ML PO.SYRINGE GT (13:08)
--- NOTE | 2024-01-03 13:34 | TREXTCAR_ITS ---
Diet Diet Order/Speech Therapy: 01/01/24 11:18 NPO [Diet: Nothing Per Oral] Diet Comments: Ok for ice chips supervised after oral care Wound(s) Neck: Wound Type: radiation tanner Dressing Change: silvadene with dressing Problem/Diagnosis (1) Fever and neutropenia: Status: Acute Code(s): D70.9 - Neutropenia, unspecified; R50.81 - Fever presenting with conditions classified elsewhere Plan Patient is a 68-year-old gentleman with history of laryngeal CA admitted with neutropenic fever 1. Neutropenic fever ? Suspected to be secondary to tracheitis sputum cultures grew E. coli, Enterobacter as well as Klebsiella. Patient has so far been managed with Zosyn. Wound culture grew corynebacterium straitum. Dr. Puckett with infectious disease ? 01/02/2024; patient antibiotic therapy adjusted by ID with initiation of ciprofloxacin and doxycycline via PEG tube the day prior. 2. Laryngeal CA ? Status post tracheostomy on 10/19/2023 patient is currently undergoing chemo and radiation as outpatient 3. Paroxysmal A-fib ? Patient remains in sinus rhythm 4. COPD ? Not in exacerbation did continue patient bronchodilator treatment as needed 5. Chronic congestive heart failure with reduced ejection fraction ? Patient has EF of 40% patient is on furosemide as well as ANA inhibitors 6. Severe protein calorie malnutrition ? Evidenced by suboptimal energy level severe weight loss consult placed to dietitian 7. Essential benign hypertension ? Patient is on lisinopril 8. Dyslipidemia ? Patient is on statin therapy 9. Depression ? Patient is on Wellbutrin at night 10. Anemia - Secondary to chronic disorder monitoring H&H and transfuse if patient becomes symptomatic or hemoglobin falls below 7 11. Hypokalemia -Corrected per protocol 12. Physical deconditioning - Requested for PT OT eval and child welfare social worker to assist with discharge planning 13. DVT prophylaxis ? Enoxaparin Time spent in the patient's overall evaluation,decision-making process, review of diagnostic data, adjustment of management, discussion with other providers, nursing nursing and ancillary staff involved in patient's care documentation, 38 Minutes Allergies/Procedures Done in Hospital Allergies No Known Allergies Allergy (Verified 12/29/23 11:04) Type of Care/Length of Stay Estimated LOS: More Than 30 Days Type of Care Needed: Skilled Rehab Potential: Fair Prognosis: Fair Additional Orders/Day of Discharge Day of Discharge: 01/03/24 Dietary and Speech Recommendations Dietitian Recommendations/Changes: Continue regular/no added salt diet as tolerated with consistency/texture as per REHABILITATION WORKER, pt currently on pureed food/thin liquids. Will add ensure compact w/ breakfast and magic cup BID with lunch and dinner trays; adjust ONS as needed to encourage PO at meals. Will order nocturnal enteral nutrition support with Jevity 1.5 Nicho via PEG to start at 50mL/hr from 6 PM to 6AM and increase rate as tolerated by 10mL/hr Q 6- 8 hours to goal rate 80mL/hr. Flush with 180mL Q 6 hours. TF at goal rate 80mL/hr and water flushes will provide 1440 kcal, 61 gm pro and 1450 mL/free water. Will monitor tolerance to enteral nutrition support, weight, labs and adjust TF as needed. Discharge Plan Admission Admit Date/Time: 12/29/23 14:07 Attending Provider: Mickey Palacios Primary Care Provider: Juan Rai Consulting Providers: Nadya Ferrara; Sergio Puckett; Rolly Cm Discharge Orders/Prescriptions Prescriptions: New ciprofloxacin HCl 500 mg Tablet 500 mg G-tube BID 7 Days Qty: 14 0RF doxycycline monohydrate 100 mg Capsule 100 mg G-tube BID 7 Days Qty: 14 0RF IV with Additives Jevity 1.5 1000 ML 80 mls/hr GT Ordered By: Mickey Palacios MD Last Taken: 01/03/24 06:37 80 mls/hr Continued morphine 10 mg/5 mL solution 10 mg sublingual Q6H MDD 40mg PRN (Reason: pain) 30 Days Qty: 500 0RF atorvastatin 40 mg Tablet 40 mg PO QHS Qty: 30 2RF acetaminophen 325 mg Tablet 650 mg PO Q4H PRN PRN (Reason: Pain Score 1-10) Qty: 0 0RF ipratropium-albuterol 0.5 mg-3 mg(2.5 mg base)/3 mL Solution For Nebulization 3 ml inhalation TID.RT Qty: 0 0RF sennosides-docusate sodium [Stool Softener-Stimulant Laxat] 8.6-50 mg Tablet 2 tab PO BID Qty: 0 0RF thiamine HCl (vitamin B1) [Vitamin B-1] 100 mg Tablet 100 mg PO DAILYCM Qty: 0 0RF aspirin 81 mg Tablet,Delayed Release (Dr/Ec) 81 mg PO BREAKFAST Qty: 0 0RF carvedilol 3.125 mg Tablet 3.125 mg PO BID Qty: 0 0RF potassium chloride 20 mEq Tablet,Er Particles/Crystals 20 meq PO DAILYCM Qty: 0 0RF bupropion HCl 75 mg Tablet 75 mg PO BID Qty: 0 0RF lisinopril 2.5 mg Tablet 2.5 mg PO DAILY Qty: 0 0RF menthol-zinc oxide [Calmoseptine] 0.44-20.6 % Ointment 1 applic topical BID Qty: 0 0RF Protocol: *Topical Application Instructions APPLICATION INSTRUCTIONS: Apply to buttock guaifenesin [Adult Tussin Chest Congestion] 100 mg/5 mL liquid 400 mg PO Q6H PRN (Reason: congestion) nicotine 14 mg/24 hr patch 24 hour 1 patch transdermal DAILY ondansetron 4 mg tablet,disintegrating 4 mg PO Q6H PRN (Reason: nausea and vomiting) silver sulfadiazine [Silvadene] 1 % cream 1 applic topical BID Qty: 85 3RF Rx Instructions: apply a 1.5 mm thickness Referrals / Follow Up: Juan Rai DO [Primary Care Provider] - Renan Priest DO [Med Staff - Active Staff] - In 1 Week Disposition Disposition (needs filled in before D/C Order can be placed): Home Health Service
[2024-01-04 13:32] LABS: Pathologist Review Reviewed
[2024-01-04 13:43] LABS: Pathologist Review Reviewed
[2024-01-04 13:44] LABS: Pathologist Review Reviewed
== END 2024-01-03 14:04 | disposition skilled nursing facility (03) | DRG 808 ==
LOC: ED 13:28 → MS3 14:23 → PCU 14:54
PROVIDERS: Internal Medicine; Admitting Provider Internal Medicine; Emergency Provider Emergency Medicine; PCP Internal Medicine; Visit Provider Internal Medicine
DX: D70.9 Neutropenia, unspecified (principal); E43 Unspecified severe protein-calorie malnutrition; J95.03 Malfunction of tracheostomy stoma; I42.9 Cardiomyopathy, unspecified; I50.22 Chronic systolic (congestive) heart failure; Z68.1 Body mass index [BMI] 19.9 or less, adult; C32.9 Malignant neoplasm of larynx, unspecified; B96.20 Unspecified Escherichia coli [E. coli] as the cause of diseases classified elsewhere; B96.1 Klebsiella pneumoniae [K. pneumoniae] as the cause of diseases classified elsewhere; B96.89 Other specified bacterial agents as the cause of diseases classified elsewhere; J44.9 Chronic obstructive pulmonary disease, unspecified; I11.0 Hypertensive heart disease with heart failure; F32.A Depression, unspecified; D64.9 Anemia, unspecified; I48.0 Paroxysmal atrial fibrillation; J04.10 Acute tracheitis without obstruction; I25.10 Atherosclerotic heart disease of native coronary artery without angina pectoris; E87.6 Hypokalemia; E78.00 Pure hypercholesterolemia, unspecified; Z79.82 Long term (current) use of aspirin; R50.81 Fever presenting with conditions classified elsewhere; Z87.891 Personal history of nicotine dependence; Z92.3 Personal history of irradiation; T45.1X5A Adverse effect of antineoplastic and immunosuppressive drugs, initial encounter; R13.10 Dysphagia, unspecified; Z79.899 Other long term (current) drug therapy
CPT/HCPCS: 31502; 31720; 36415; 36591; 71045; 77386; 80048; 80053; 80202; 81001; 83605; 83735; 84100; 84443; 85025; 87040; 87070; 87077; 87086; 87088; 87186; 87205; 87631; 87633; 92526; 92610; 93005; 94640; 96374; 96375; 97162; 97166; 97530; 97802; 97803; 99252; 99282; 99285; J7030; J7040; J7050; A4216; G0463; J2405

== ENCOUNTER 2024-01-17 07:07 | Emergency (ER) | payer MEDICARE, SELFPAY ==
[2024-01-17] VITALS (14 sets, daily range): BP systolic 102–117; BP diastolic 70–79; PULSE 106–124; RESP 16–25; TEMP 36.1–36.8; O2SAT 89–98; BMI 19.4
--- NOTE | 2024-01-17 07:35 | CPS ---
Dr placed new trach [id number] at bedside without difficulty. Patient tolerated well.
--- NOTE | 2024-01-17 07:44 | EX.ED.DYSGE1 ---
HPI History of Present Illness Chief Complaint: Other, Pain/Inj Informant: patient and EMS Narrative Narrative: Patient is a 68-year-old male with history of laryngeal cancer currently undergoing chemotherapy and completed radiation therapy 1 week ago. He had a coughing episode this morning and coughed out his trach Shiley. He has been having increased sputum production and shortness of breath since. Was placed on a 28% trach collar and transferred to the emergency room. Patient wears 2 L at baseline. Patient states his cough is chronic. Denies any change in his sputum production except for when the trach came out. Denies any recent fevers. Does not have asthma or any medications. Is PEG tube dependent. No other complaints or concerns at this time. Trach was placed on 10/19/[address] Coleman. [facility] Medical History Depression Former smoker On home oxygen therapy Atrial fibrillation Cardiomyopathy Alcoholism Laryngeal squamous cell carcinoma Esophageal mass Hyperlipidemia Chronic HFrEF (heart failure with reduced ejection fraction) Laryngeal mass Debility Wears dentures Wears glasses Cardiology follow-up encounter Difficulty swallowing Smoker High cholesterol COPD (chronic obstructive pulmonary disease) History of CHF (congestive heart failure) Agoraphobia CHF exacerbation Medical non-compliance Alcohol abuse Tobacco abuse Acute hypoxic respiratory failure Home Medications ?Medication ?Instructions ?Recorded ?Last Taken ?Type atorvastatin 40 mg tablet 40 mg PO QHS Cholesterol #30 tabs 10/15/23 10/14/23 Rx acetaminophen 325 mg tablet 650 mg (2 x 325 mg) PO Q4H PRN PRN 10/23/23 Unknown Rx Pain Score 1-10 #0 tabs aspirin 81 mg tablet,delayed 81 mg PO BREAKFAST #0 tabs 11/26/23 Unknown Rx release bupropion HCl 75 mg tablet 75 mg PO BID #0 tabs 11/26/23 Unknown Rx carvedilol 3.125 mg tablet 3.125 mg PO BID #0 tabs 11/26/23 Unknown Rx ipratropium 0.5 mg-albuterol 3 mg 3 ml inhalation TID.RT #0 mL 11/26/23 Unknown Rx (2.5 mg base)/3 mL nebulization soln lisinopril 2.5 mg tablet 2.5 mg PO DAILY #0 tabs 11/26/23 Unknown Rx menthol 0.44 %-zinc oxide 20.6 % 1 applic topical BID #0 grams 11/26/23 Unknown Rx topical ointment (Calmoseptine) potassium chloride 20 mEq 20 meq PO DAILYCM #0 tabs 11/26/23 Unknown Rx tablet,extended release(part/cryst) sennosides 8.6 mg-docusate sodium 2 tab PO BID #0 tabs 11/26/23 Unknown Rx 50 mg tablet (Stool Softener-Stimulant Laxative) thiamine HCl (vitamin B1) 100 mg 100 mg PO DAILYCM #0 tabs 11/26/23 Unknown Rx tablet (Vitamin B-1) silver sulfadiazine 1 % topical 1 applic topical BID #85 grams 12/21/23 Unknown Rx cream (Silvadene) guaifenesin 100 mg/5 mL oral 400 mg PO Q6H PRN congestion 12/29/23 Unknown History liquid (Adult Tussin Chest Congestion) morphine 10 mg/5 mL oral solution 10 mg (5 mL) sublingual Q6H PRN 12/29/23 Unknown Rx pain 30 days #500 mL nicotine 14 mg/24 hr daily 1 patch transdermal DAILY 12/29/23 Unknown History transdermal patch ondansetron 4 mg disintegrating 4 mg PO Q6H PRN nausea and vomiting 12/29/23 Unknown History tablet IV with Additives 80 mls/hr G-tube 01/03/24 Unknown Rx Allergy/AdvReac Type Severity Reaction Status Date / Time No Known Allergies Allergy Verified 01/06/24 09:51 Family History Father Pacemaker Surgical History History of tracheostomy History of laryngoscopy History of surgery Social History household members: none current occupational status: retired Smoking Status: Former smoker alcohol intake: current alcohol intake frequency: 3 or more drinks per day Alcohol type: beer details: 6 24 ounce cans of beer daily. substance use type: does not use caffeine: Yes Type: coffee ROS ROS ED Constitutional Constitutional ED: Denies chills or fever(s) Cardiovascular Cardiovascular: Denies chest pain Respiratory/Chest Respiratory/Chest: Reports cough, dyspnea and sputum Gastrointestinal Gastrointestinal: Reports other Details: PEG tube in place ; Denies nausea or vomiting Musculoskeletal Musculoskeletal: Denies arthralgias or myalgias Integumentary Reports rash and other Details: radiation tanner to anterior neck EXAM Physical Exam Const Vital Signs: 01/17/24 07:09 01/17/24 07:14 01/17/24 07:30 Temperature 98.3 F 98.3 F Temperature Source Oral Oral Pulse Rate 118 H 119 H Respiratory Rate 18 20 H Respiratory Effort Short of Breath Labored Respiratory Pattern Normal Blood Pressure 117/75 110/77 Blood Pressure Mean 89 88 Pulse Ox 91 90 Oxygen Delivery Method Venturi Mask Venturi Mask Oxygen Flow Rate (L/min) 5 12 Fraction of Inspired Oxygen (FIO2) 28 50 01/17/24 07:35 01/17/24 07:55 01/17/24 08:08 Temperature Temperature Source Pulse Rate 124 H Respiratory Rate 22 H Respiratory Effort Respiratory Pattern Blood Pressure 104/79 Blood Pressure Mean 87 Pulse Ox 93 98 95 Oxygen Delivery Method Trach Collar Venturi Mask Venturi Mask Oxygen Flow Rate (L/min) 12 8 8 Fraction of Inspired Oxygen (FIO2) 50 50 50 01/17/24 08:14 01/17/24 09:00 01/17/24 09:00 Temperature 97.8 F 97.0 F L Temperature Source Temporal Temporal Pulse Rate 124 H 111 H 111 H Respiratory Rate 25 H 24 H 24 H Respiratory Effort Respiratory Pattern Blood Pressure 104/79 106/74 106/74 Blood Pressure Mean 87 84 84 Pulse Ox 95 95 95 Oxygen Delivery Method Venturi Mask Venturi Mask Venturi Mask Oxygen Flow Rate (L/min) 8 8 8 Fraction of Inspired Oxygen (FIO2) 50 50 50 01/17/24 09:57 01/17/24 09:57 01/17/24 10:00 Temperature 97.4 F L Temperature Source Temporal Pulse Rate 110 H Respiratory Rate 16 Respiratory Effort Respiratory Pattern Blood Pressure 105/79 Blood Pressure Mean 87 Pulse Ox 97 97 97 Oxygen Delivery Method Trach Collar Venturi Mask Oxygen Flow Rate (L/min) 8 8 8 Fraction of Inspired Oxygen (FIO2) 40 40 40 01/17/24 10:00 01/17/24 11:00 01/17/24 11:00 Temperature 97.7 F L Temperature Source Temporal Pulse Rate 110 H 110 H 108 H Respiratory Rate 16 23 H 21 H Respiratory Effort Respiratory Pattern Blood Pressure 105/79 102/73 102/73 Blood Pressure Mean 87 82 82 Pulse Ox 97 92 92 Oxygen Delivery Method Venturi Mask Venturi Mask Venturi Mask Oxygen Flow Rate (L/min) 8 4 4 Fraction of Inspired Oxygen (FIO2) 40 28 28 01/17/24 12:00 01/17/24 12:00 01/17/24 13:00 Temperature 97.4 F L 97.4 F L Temperature Source Temporal Temporal Pulse Rate 107 H 106 H 109 H Respiratory Rate 23 H 25 H 25 H Respiratory Effort Respiratory Pattern Blood Pressure 105/73 105/73 112/72 Blood Pressure Mean 83 83 85 Pulse Ox 91 92 93 Oxygen Delivery Method Venturi Mask Venturi Mask Venturi Mask Oxygen Flow Rate (L/min) 4 4 4 Fraction of Inspired Oxygen (FIO2) 28 28 28 01/17/24 13:00 Temperature Temperature Source Pulse Rate 109 H Respiratory Rate 25 H Respiratory Effort Respiratory Pattern Blood Pressure 112/72 Blood Pressure Mean 85 Pulse Ox 93 Oxygen Delivery Method Venturi Mask Oxygen Flow Rate (L/min) 4 Fraction of Inspired Oxygen (FIO2) 28 Positive cachectic Constitutional Narrative: No acute distress, chronically ill-appearing General Appearance ED: cachectic Nutritional Appearance: cachectic HEENT Reports moist mucous membranes Eyes PERRL and EOMs intact bilaterally Neck supple Neck Narrative: Tracheostomy stoma in place. There is copious secretions coming out that look most like saliva/white phlegm. Chest Wall inspection of chest normal Resp Resp Narrative: Mild tachypnea. Transmitted upper respiratory noises present. No wheezing at this time appreciated. Cardio regular rhythm Rate: tachycardic GI normal to inspection, nondistended, normoactive bowel sounds and non-tender GI Narrative: PEG tube in place Extremity normal to inspection General Extremety ED: Negative for edema General Extremity: Negative for edema Neuro oriented x3 Sensorium / Orientation: alert Psych mental status grossly normal Skin Skin Narrative: Erythema of the anterior neck and part of the upper chest consistent with radiation tanner. There is some granulation tissue present around the stoma. MDM MDM MDM Narrative Medical decision making narrative: Patient is increased O2 requirements and secretions after his tracheostomy came out. A new 6-0 Shiley is placed by me at the bedside. Patient does have improvement of his respiratory symptoms however he still having increased O2 demands only 92% on 50% FiO2 Venturi mask. He can use to be tachycardic. Will give his morning medications but will obtain infectious workup as well. Patient is given his morning dose of carvedilol as he is tachycardic. Patient's tachycardia slowly improved in the emergency room. Workup is largely negative and does not show any acute process. Chest x-ray reviewed by myself sociology does not show any acute process. Patient is weaned down back to his baseline O2 while in the emergency room. Given that he does not have signs of an acute infection or acute respiratory failure now that his tracheostomy Shiley has been replaced I feel that he can be discharged back to nursing [facility]. Patient is agreeable with this. Patient is offered breathing treatment in the ER but does not feel he needs it. He is offered his home pain medication but again declines. Lab Data Labs: Laboratory Results - last 24 hr 01/17/24 01/17/24 08:20 08:27 WBC 4.6 RBC 2.95 L Hgb 8.8 L Hct 27.0 L MCV 91.5 MCH 29.8 MCHC 32.6 RDW Std Deviation 52.2 H RDW Coeff of Elidia 16.0 H Plt Count 420 MPV 8.9 Neut % (Auto) Not Reportable Absolute Neuts (auto) 3.3 Absolute Lymphs (auto) 0.50 L Total Counted 100 Neutrophils % (Manual) 70 Band Neutrophils % 3 Lymphocytes % (Manual) 11 L Monocytes % (Manual) 7 Metamyelocytes % 9 H Diff Path Review May foll Platelet Estimate ADEQUATE RBC Morphology NORM C+C PT 14.4 INR 1.1 APTT 31.3 Sodium 133 L Potassium 4.3 Chloride 99 Carbon Dioxide 29.0 Anion Gap 5 BUN 21 H Creatinine 0.51 L Estim Creat Clear Calc 74.75 Est GFR (MDRD) Af Amer 209 Est GFR (MDRD) Non-Af 173 BUN/Creatinine Ratio 41.4 H Glucose 113 H Lactic Acid 0.6 Calcium 8.7 Total Bilirubin 0.30 AST 82 H ALT 121 H Alkaline Phosphatase 85 Total Protein 6.6 Albumin 2.1 L Globulin 4.5 H Albumin/Globulin Ratio 0.5 L Radiography Chest X-Ray - ED: 1 View, Read by ED Physician, Read by Radiologist and No Acute Disease Diagnostic Testing: Clinical Impression(s) from Imaging Studies Chest X-Ray 01/17/24 07:45 IMPRESSION: Hyperexpanded lungs without a superimposed acute pulmonary process, no interval change Electronically Signed: Mahin Ellis MD at 8:06 EDT , Rhythm Strip Rhythm Strip: Sinus Tach Rate: 122 Ectopy: None EKG Initial EKG: Attestation: I personally reviewed and interpreted this EKG as follows: Interpretation: Sinus Tachycardia Comments: Sinus tachycardia at a rate of 122 bpm Normal axis Normal intervals Normal ST segments Compared to prior EKG on 12/30/2023, patient is now tachycardic with no acute ischemic change Discharge Plan Triage Chief Complaint: Other, Pain/Inj ED Provider: Eboni Calvillo Dx/Rx/DC Orders Clinical Impression: Tracheostomy, acute management, Tachycardia Instructions: ED Tracheostomy Care Prescriptions: No Action morphine 10 mg/5 mL solution 10 mg sublingual Q6H MDD 40mg PRN (Reason: pain) 30 Days Qty: 500 0RF atorvastatin 40 mg Tablet 40 mg PO QHS Qty: 30 2RF acetaminophen 325 mg Tablet 650 mg PO Q4H PRN PRN (Reason: Pain Score 1-10) Qty: 0 0RF ipratropium-albuterol 0.5 mg-3 mg(2.5 mg base)/3 mL Solution For Nebulization 3 ml inhalation TID.RT Qty: 0 0RF sennosides-docusate sodium [Stool Softener-Stimulant Laxat] 8.6-50 mg Tablet 2 tab PO BID Qty: 0 0RF thiamine HCl (vitamin B1) [Vitamin B-1] 100 mg Tablet 100 mg PO DAILYCM Qty: 0 0RF aspirin 81 mg Tablet,Delayed Release (Dr/Ec) 81 mg PO BREAKFAST Qty: 0 0RF carvedilol 3.125 mg Tablet 3.125 mg PO BID Qty: 0 0RF potassium chloride 20 mEq Tablet,Er Particles/Crystals 20 meq PO DAILYCM Qty: 0 0RF bupropion HCl 75 mg Tablet 75 mg PO BID Qty: 0 0RF lisinopril 2.5 mg Tablet 2.5 mg PO DAILY Qty: 0 0RF menthol-zinc oxide [Calmoseptine] 0.44-20.6 % Ointment 1 applic topical BID Qty: 0 0RF Protocol: *Topical Application Instructions APPLICATION INSTRUCTIONS: Apply to buttock guaifenesin [Adult Tussin Chest Congestion] 100 mg/5 mL liquid 400 mg PO Q6H PRN (Reason: congestion) nicotine 14 mg/24 hr patch 24 hour 1 patch transdermal DAILY ondansetron 4 mg tablet,disintegrating 4 mg PO Q6H PRN (Reason: nausea and vomiting) IV with Additives Jevity 1.5 1000 ML 80 mls/hr G-tube Ordered By: Mickey Palacios MD Last Taken: Unknown silver sulfadiazine [Silvadene] 1 % cream 1 applic topical BID Qty: 85 3RF Rx Instructions: apply a 1.5 mm thickness Primary Care Provider: Juan Rai Referrals: Juan Rai DO [Primary Care Provider] - Activity Restrictions/Additional Instructions: Mickey's tracheostomy was replaced today. Please follow-up with PCP for recheck later in the week as he was tachycardic while in the emergency room. He did get his morning dose of carvedilol. At this time there is not appear to be any acute infection or other acute cardiac abnormality. Print Language: Kazakh Disposition Disposition: Home, Self Care
--- NOTE | 2024-01-17 07:45 | RAD_ITS ---
STUDY: X-RAY CHEST REASON FOR EXAM: Male, 68 years old. Cough TECHNIQUE: Single AP portable view of the chest. COMPARISON: 12/29/2023 FINDINGS: Stable appearance of the right sided port and tracheostomy tube Lungs are hyperexpanded without evidence of a superimposed process. There is no demonstrated pleural abnormality. Normal size heart. Normal mediastinum and shama. Normal visualized pulmonary arteries. Normal visualized aortic arch and descending thoracic aorta. There are diffuse degenerative changes of the visualized thoracic spine. There is degenerative osteoarthritis of the bilateral shoulders. Tubular structure underneath the left hemidiaphragm suggests a PEG tube may be present. RAD/Chest 1 View (Portable) IMPRESSION: Hyperexpanded lungs without a superimposed acute pulmonary process, no interval change Electronically Signed: Mahin Ellis MD at 8:06 EDT ,
--- NOTE | 2024-01-17 07:55 | EKG12_ITS ---
Test Reason : TACHY Blood Pressure : / mmHG Vent. Rate : 122 BPM Atrial Rate : 122 BPM P-R Int : 142 ms QRS Dur : 074 ms QT Int : 318 ms P-R-T Axes : 082 060 075 degrees QTc Int : 453 ms Sinus tachycardia Otherwise normal ECG Confirmed by CECILIA REYNOLDS, JAY ([id number]), editor [employer] journal [employer] [employer] ([id number]) on 01/22/2024 6:45:06 AM Referred By: Confirmed By:KERLINE BROOKS MD
[2024-01-17 08:35] LABS: Differential Indicated MANUAL DIFF; Hemoglobin 8.8 g/dL (13.0-16.5); Mean Corp Hgb Conc 32.6 g/dL (32-36); Mean Corpuscular Hgb 29.8 pg (27.0-32.0); Mean Corpuscular Volume 91.5 fL (80-94); Mean Platelet Vol. 8.9 fl (6.2-12.0); POSITIVE COUNT YES; POSITIVE DIFFERENTIAL YES; POSITIVE MORPHOLOGY YES; Platelet Count 420 K/mm3 (150-450); RBC Distribution Width SD 52.2 fl (35.1-43.9); Red Blood Count 2.95 M/mm3 (4.6-6.2); White Blood Count 4.6 K/mm3 (4.4-11.0)
[2024-01-17 08:42] LABS: International Normalized Ratio 1.1; Partial Thromboplast Time 31.3 Seconds (24.1-36.2); Prothrombin Time (Protime)PT. 14.4 SECONDS (11.7-14.9)
[2024-01-17] MEDS: Carvedilol 3.125 MG TABLET GT (08:45)
[2024-01-17 08:51] LABS: ALB/GLOB Ratio 0.5 RATIO (0.9-2.4); AST(SGOT) 82 U/L (15-37); Alanine Aminotransfer ALT/SGPT 121 U/L (16-61); Albumin, Serum 2.1 g/dL (3.2-5.0); Alkaline Phosphatase 85 U/L (45-117); Anion Gap 5 (5-15); BUN 21 mg/dL (7-18); BUN/Creat Ratio 41.4 RATIO (10-20); Calcium,Total 8.7 mg/dL (8.5-10.1); Chloride 99 mmol/L (98-107); Creatinine, Serum 0.51 mg/dL (0.70-1.30); EST Glomerular Filtration Rate 173 mL/min (>60); Est Glom Filt Rate - Afr Amer 209 mL/min (>60); Estimated Creatinine Clearance 74.75 ml/min; Globulin 4.5 g/dL (2.2-4.2); Glucose 113 mg/dL (74-106); Potassium 4.3 mmol/L (3.5-5.1); Protein, Total 6.6 g/dL (6.4-8.2); Sodium Level 133 mmol/L (136-145)
[2024-01-17 08:56] LABS: Lactic Acid 0.6 mmol/L (0.4-1.9)
[2024-01-17 08:58] LABS: Lymphocyte 11 % (19-41); Metamyelocyte 9 % (0-1); Monocyte 7 % (0-10); Neutrophil-Band 3 % (0-5); Neutrophil-Segmented 70 % (47-70); Total Cells Counted 100 (MANUAL DIFF)
[2024-01-17 08:59] LABS: Platelet Estimate ADEQUATE (ADEQ); Red Cell Morphology NORM C+C NORMAL (NORM C&C)
[2024-01-17 09:00] LABS: Absolute Neutrophil Count 3.3 X10^3/uL (2.0-7.7)
[2024-01-18 10:33] LABS: Pathologist Review Reviewed
== END 2024-01-17 15:02 | disposition home or self-care (01) ==
PROVIDERS: Emergency Provider Emergency Medicine; PCP Internal Medicine; Visit Provider Emergency Medicine
DX: Z93.0 Tracheostomy status (principal); Z93.1 Gastrostomy status; I50.22 Chronic systolic (congestive) heart failure; J44.9 Chronic obstructive pulmonary disease, unspecified; I48.91 Unspecified atrial fibrillation; R00.0 Tachycardia, unspecified; Z87.891 Personal history of nicotine dependence; E78.00 Pure hypercholesterolemia, unspecified; Z99.81 Dependence on supplemental oxygen; Z85.21 Personal history of malignant neoplasm of larynx; Z92.21 Personal history of antineoplastic chemotherapy; Z92.3 Personal history of irradiation; Z79.899 Other long term (current) drug therapy; Z79.82 Long term (current) use of aspirin; F32.A Depression, unspecified; R06.02 Shortness of breath
CPT/HCPCS: 31502; 31720; 71045; 80053; 83605; 85025; 85610; 85730; 87040; 87631; 93005; 99252; 99283; A4216; G0463

== ENCOUNTER → 2024-02-05 | Outpatient (CLI) | payer MEDICARE, SELFPAY ==
--- NOTE | 2024-02-05 09:35 | RAD_ITS ---
ACR Level 3 findings have been noted. An addendum which confirms receipt of the report will follow. INDICATION: cough and congestion EXAMINATION/TECHNIQUE: X-RAY - XR Chest 2 Views COMPARISON: January 17, 2024. FINDINGS: LINES/DEVICES: Tracheostomy projects over the trachea at the level of the clavicles. Right chest port tip projects in the distal superior vena cava.. Gastrostomy projects over the superior stomach. LUNGS: Lungs are hyperexpanded with coarsened interstitium. Ill-defined focal hazy 2.1 cm nodular opacity projects over the lateral left midlung deep to the anterior fourth rib and just medial to the scapula. No consolidation, edema or effusion. No pneumothorax. MEDIASTINUM AND CARDIOVASCULAR STRUCTURES: Cardiac silhouette not enlarged. Mild aortic atherosclerosis. BONES AND SOFT TISSUES: Unremarkable. RAD/Chest PA and Lateral IMPRESSION: Nonspecific ill-defined nodular opacity of the lateral left midlung. CT follow-up is recommended exclude neoplastic process. Findings compatible with chronic obstructive pulmonary disease. Electronically Signed: Anders Trivedi MD at 22:11 EDT ,
== END | disposition home or self-care (01) ==
LOC: RAD 09:37
PROVIDERS: PCP Internal Medicine; Referring Provider Student in an Organized Health Care Education/Training Program; Visit Provider Student in an Organized Health Care Education/Training Program
DX: R05.9 Cough, unspecified (principal); C32.9 Malignant neoplasm of larynx, unspecified
CPT/HCPCS: 71046

== ENCOUNTER → 2024-02-22 | Outpatient (CLI) | payer MEDICARE, SELFPAY ==
--- NOTE | 2024-02-22 14:29 | CT_ITS ---
EXAM: CT CHEST WITH INTRAVENOUS CONTRAST CLINICAL INDICATION: lung nodule on xray -- compare to prior TECHNIQUE: Helically acquired images were obtained of the chest with intravenous contrast. This CT exam was performed using one or more of the following dose reduction techniques: automated exposure control, adjustment of the mA and/or kV according to patient size, and/or use of iterative reconstruction technique. CONTRAST: IV 75mL [id number] RADIATION DOSE: CTDIvol = 7.54 mGy, DLP = 180.91 mGy-cm COMPARISON: February 05, 2024 chest radiograph described nodular opacity of left lateral mid lung for which CT was recommended. CT therapy planning November 24, 2023, PET/CT report from November 03, 2023 showed tracer uptake in the laryngeal structures consistent with malignant transformation, also focus of uptake of the right perihilar region not diagnostic for neoplasm by report but images were not provided. Also compared to CT head and neck November 09, 2023. FINDINGS: LIMITATIONS: Fairly extensive motion artifact and blurring. LUNGS AND PLEURAL SPACES: There is emphysematous change and blebs and bullae involving the upper lung jj, apices. No mass. No pleural effusion or thickening. No pneumothorax. HEART: Unremarkable. Heart size is normal. No pericardial effusion. MEDIASTINUM: Small mediastinal lymph nodes, significantly smaller left prevascular and aortopulmonary window nodes compared to November 09, 2023 CT for therapeutic planning purposes. Slight fluid in the superior pericardial recesses. Esophagus is unremarkable. No hiatal hernia. THYROID: Unremarkable. No thyroid lesions. BONES/JOINTS: There are old healed right lateral rib fractures callus. Decreased height of T6 similar. No suspicious lytic or blastic abnormality. VASCULATURE: Mild atherosclerotic calcifications of aorta. Calcification and at least moderate to high-grade stenosis at the origins of the celiac axis and SMA, SMA origin is not fully included. No aortic aneurysm or dissection. Calcification at the proximal coronary arteries, not well seen. Trace pericardial effusion, roughly 5 mm anterior to the heart. No obvious central pulmonary embolism although this study was not performed with the pulmonary embolism protocol. LIVER: Most of the abdomen is not included. Most of the liver is not included. Proximal to mid pancreas is not included. TUBES, LINES AND DEVICES: Tracheostomy tube appears adequately positioned, tip at the level of T2. CT/Chest WITH Contrast IMPRESSION: 1. No suspicious pulmonary nodule. 2. Motion artifacts and mild blurring. 3. Underlying COPD. Tracheostomy tube. 4. Some previously mildly prominent left aortopulmonary window and left prevascular lymph nodes are significantly smaller. Persistent minimally prominent right precarinal lymph node, not pathologic by size criteria. 5. No PE or aortic aneurysm or dissection. 6. Advanced atherosclerotic changes and suspicion of fairly high-grade stenosis at the origins of both the celiac axis and partially included SMA. Electronically Signed: Estephania Sanchez MD at 22:52 EDT ,
[2024-02-22] MEDS: 0.9 % NaCl (Sterile) Posiflush 10 mL IV (14:35)
[2024-02-22] MEDS: 0.9% Saline Lock 10 ML Syringe IV (14:50)
== END | disposition home or self-care (01) ==
LOC: CT 14:26
PROVIDERS: PCP Internal Medicine; Referring Provider Student in an Organized Health Care Education/Training Program; Visit Provider Student in an Organized Health Care Education/Training Program
DX: R91.1 Solitary pulmonary nodule (principal); C32.9 Malignant neoplasm of larynx, unspecified
CPT/HCPCS: 71260; Q9967; A4216

== ENCOUNTER 2024-02-25 16:35 | Emergency (ER) | payer MEDICARE, SELFPAY ==
[2024-02-25] VITALS (9 sets, daily range): BP systolic 98–112; BP diastolic 69–97; PULSE 92–103; RESP 18–20; TEMP 36.8–36.9; O2SAT 97–100
--- NOTE | 2024-02-25 17:06 | ED.RN ---
Pt. able to whisper and write on paper to communicate d/t trach placement. Assessment done accordingly. aware.
--- NOTE | 2024-02-25 17:17 | EX.ED.DYSGE1 ---
HPI History of Present Illness Chief Complaint: Alt LOC Informant: patient, EMS and SNF Narrative Narrative: 69-year-old male history of recurrent laryngeal cancer (follows with [facility] locally) status post trach (this spring) and PEG presenting to the emergency room with altered mental status. Reportedly patient is at SNF and rounded on the hallway naked. Patient tells me that he got confused and thought his daughter was leaving and he wanted to go but then realized that she was not there. He states that he was dreaming and woke up confused. He states that he is not currently experience any pain and he feels at his baseline. He states he really does not know why he is here. Initial nursing here and reports is lacking in substance as to the exact purpose of the emergency department visit. Later in the ED course daughter came. I also spoke with another family member who states that on Thursday the patient was unresponsive for about 7 minutes seemed pale and then became flushed but became more alert. Seemed that he was having chest discomfort which resolved. Patient cannot really tell me anything about that. [facility] Medical History Herpes zoster Depression Former smoker On home oxygen therapy Atrial fibrillation Cardiomyopathy Alcoholism Laryngeal squamous cell carcinoma Esophageal mass Hyperlipidemia Chronic HFrEF (heart failure with reduced ejection fraction) Laryngeal mass Debility Wears dentures Wears glasses Cardiology follow-up encounter Difficulty swallowing Smoker High cholesterol COPD (chronic obstructive pulmonary disease) History of CHF (congestive heart failure) Agoraphobia CHF exacerbation Medical non-compliance Alcohol abuse Tobacco abuse Acute hypoxic respiratory failure Home Medications ?Medication ?Instructions ?Recorded ?Last Taken ?Type atorvastatin 40 mg tablet 40 mg PO QHS Cholesterol #30 tabs 10/15/23 10/14/23 Rx acetaminophen 325 mg tablet 650 mg (2 x 325 mg) PO Q4H PRN PRN 10/23/23 Unknown Rx Pain Score 1-10 #0 tabs aspirin 81 mg tablet,delayed 81 mg PO BREAKFAST #0 tabs 11/26/23 Unknown Rx release bupropion HCl 75 mg tablet 75 mg PO BID #0 tabs 11/26/23 Unknown Rx carvedilol 3.125 mg tablet 3.125 mg PO BID #0 tabs 11/26/23 Unknown Rx lisinopril 2.5 mg tablet 2.5 mg PO DAILY #0 tabs 11/26/23 Unknown Rx menthol 0.44 %-zinc oxide 20.6 % 1 applic topical BID #0 grams 11/26/23 Unknown Rx topical ointment (Calmoseptine) potassium chloride 20 mEq 20 meq PO DAILYCM #0 tabs 11/26/23 Unknown Rx tablet,extended release(part/cryst) sennosides 8.6 mg-docusate sodium 2 tab PO BID #0 tabs 11/26/23 Unknown Rx 50 mg tablet (Stool Softener-Stimulant Laxative) thiamine HCl (vitamin B1) 100 mg 100 mg PO DAILYCM #0 tabs 11/26/23 Unknown Rx tablet (Vitamin B-1) silver sulfadiazine 1 % topical 1 applic topical BID #85 grams 12/21/23 Unknown Rx cream (Silvadene) nicotine 14 mg/24 hr daily 1 patch transdermal DAILY 12/29/23 Unknown History transdermal patch ondansetron 4 mg disintegrating 4 mg PO Q6H PRN nausea and vomiting 12/29/23 Unknown History tablet IV with Additives 80 mls/hr G-tube 01/03/24 Unknown Rx budesonide 1 mg/2 mL suspension 1 mg (2 mL) inhalation BID #120 mL 02/02/24 Unknown Rx for nebulization guaifenesin 100 mg/5 mL oral 600 mg (30 mL) PO Q6H PRN 02/02/24 Unknown Rx liquid (Adult Tussin Chest congestion #500 mL Congestion) ipratropium 0.5 mg-albuterol 3 mg 3 ml inhalation TID #180 mL 02/02/24 Unknown Rx (2.5 mg base)/3 mL nebulization soln morphine 10 mg/5 mL oral solution 10 mg PO Q6H PRN pain 02/08/24 Unknown History Allergy/AdvReac Type Severity Reaction Status Date / Time No Known Allergies Allergy Verified 02/25/24 16:44 Family History Father Pacemaker Surgical History History of tracheostomy History of laryngoscopy History of surgery Social History household members: none current occupational status: retired Smoking Status: Former smoker alcohol intake: current alcohol intake frequency: 3 or more drinks per day Alcohol type: beer details: 6 24 ounce cans of beer daily. substance use type: does not use caffeine: Yes Type: coffee ROS ROS ED Constitutional Constitutional ED: Denies chills, fever(s) or weight loss Eyes Eyes: Denies change in vision or diplopia ENT ENT ED: Denies ear pain, rhinorrhea or sore throat Cardiovascular Cardiovascular: Denies chest pain, orthopnea, palpitations or racing heartbeat Respiratory/Chest Respiratory/Chest: Reports cough and sputum; Denies dyspnea or orthopnea Gastrointestinal Gastrointestinal: Denies abdominal pain, diarrhea, nausea or vomiting Genitourinary Genitourinary ED: Denies dysuria, hematuria or urinary frequency Musculoskeletal Musculoskeletal: Denies arthralgias or myalgias Integumentary Denies abscess or rash Neurologic Neurologic: Denies headache(s) or weakness Psychiatric Psychiatric: Denies anxiety, depression, suicidal ideation or suicidal thoughts Endocrine Endocrinology: Denies polydipsia, polyphagia or polyuria Allergic/Immunologic Allergic/Immunologic ED: Denies mouth swelling, tongue swelling or urticaria EXAM Physical Exam Const Vital Signs: 02/25/24 16:38 02/25/24 16:44 02/25/24 17:40 Temperature 98.3 F 98.3 F Temperature Source Oral Oral Pulse Rate 96 97 92 Respiratory Rate 20 H 20 H 18 Respiratory Pattern Normal Blood Pressure 98/73 98/73 Blood Pressure Mean 81 81 Pulse Ox 98 98 Oxygen Delivery Method Trach Collar Trach Collar Oxygen Flow Rate (L/min) 5 6 02/25/24 17:44 02/25/24 18:00 02/25/24 19:00 Temperature 98.3 F 98.3 F 98.3 F Temperature Source Oral Oral Oral Pulse Rate 99 98 93 Respiratory Rate 20 H 20 H 20 H Respiratory Pattern Blood Pressure 101/78 111/97 H 112/72 Blood Pressure Mean 85 101 85 Pulse Ox 100 100 100 Oxygen Delivery Method Trach Collar Trach Collar Room Air Oxygen Flow Rate (L/min) 6 6 02/25/24 20:00 02/25/24 20:38 02/25/24 22:00 Temperature 98.5 F 98.5 F Temperature Source Oral Pulse Rate 103 H 103 H 96 Respiratory Rate 20 H 20 H 20 H Respiratory Pattern Blood Pressure 111/69 111/69 108/72 Blood Pressure Mean 83 83 84 Pulse Ox 100 100 97 Oxygen Delivery Method Trach Collar Trach Collar Oxygen Flow Rate (L/min) 6 6 02/26/24 00:00 Temperature Temperature Source Pulse Rate 147 H Respiratory Rate 20 H Respiratory Pattern Blood Pressure 101/73 Blood Pressure Mean 82 Pulse Ox 100 Oxygen Delivery Method Trach Collar Oxygen Flow Rate (L/min) 6 Positive well nourished and well developed General Appearance ED: well developed HEENT Reports normocephalic, head/scalp atraumatic and moist mucous membranes Eyes PERRL and EOMs intact bilaterally Neck no lymphadenopathy, supple and no JVD Neck Narrative: There is a tracheostomy present with trach collar. Resp normal respiratory effort and clear to auscultation bilaterally Cardio regular rate, regular rhythm and no murmurs GI normal to inspection, nondistended, normoactive bowel sounds and non-tender GI Narrative: PEG tube in place Palpation: soft Back/Spine no CVA tenderness and normal ROM Extremity normal to inspection General Extremety ED: Negative for edema General Extremity: Negative for edema Neuro oriented x3 and CN's II-XII intact bilaterally Neuro Narrative: Patient knows his name the month the year and where he is at. He recognizes that he was confused at the time that he was running down the hallway. Sensorium / Orientation: alert Motor Exam: strength 5/5 throughout Psych mental status grossly normal Mood & Affect: Negative for depressed or tearful Skin no rashes or lesions noted and no wounds MDM MDM MDM Narrative Medical decision making narrative: Differential diagnosis includes but not limited to UTI electrolyte abnormalities liver dysfunction dehydration Patient's blood work was rather unremarkable white count 6.8 hemoglobin 9.9 platelet count 395 potassium minimally low 3.2 sodium 132 creatinine 0.6 a BUN of 18 and anion gap of 6. Normal LFTs urinalysis 5-10 white cells 1+ bacteria 0-5 squamous cells negative nitrates. This will be sent for culture. Patient was deep suctioned with no large secretions noted. Trach care given. CT of the brain negative. Patient is ANO x 3. He does not have any current complaints. His vital signs have been stable. Spoke with the family and I do not see a clear etiology for this. The urine culture will be pending and we can certainly treat if that comes back positive but I do not feel that it rises to the level of a definitive cause for his symptomology. He offers a very plausible explanation for his confusion that he was sleeping and dreaming. He recognizes that it was not reality that his daughter was leaving. As far as the other family's phone conversation with me about the events on Thursday I do not have an explanation for what they are describing. I do not see anything that I did definitive the need to admit him into the hospital for. While waiting for ambulance transfer back to halfway and during vital signs check it was noted that the patient was tachycardic. Heart rates approaching 170. He appeared asymptomatic from this and EKG performed demonstrates A-fib with RVR. Patient was noted during hospitalization during November to have an episode of A-fib. He was maintained on beta-joaquín and was felt not to be able to be safely anticoagulated at that time. He has seen cardiology locally. Patient was given his evening dose of carvedilol as well as a IV dose of Cardizem. A CTA of the chest was ordered. Care of the patient will be turned over to Dr. Palacios (night ED physician) for check of CT and reevaluation atrial fibrillation. History & Record Review Discussion w/independent historian: EMS personnel, Patient and Family Additional record(s) reviewed:: Prior inpatient record and Prior labs Lab Data Attestation: I reviewed the patient's lab results. Labs: Laboratory Results - last 24 hr 02/25/24 02/25/24 17:34 18:25 WBC 6.8 RBC 3.33 L Hgb 9.9 L Hct 31.0 L MCV 93.1 MCH 29.7 MCHC 31.9 L RDW Std Deviation 63.6 H RDW Coeff of Elidia 18.6 H Plt Count 395 MPV 8.7 Immature Gran % (Auto) 0.400 Neut % (Auto) 76.2 H Lymph % (Auto) 9.4 L [place] % (Auto) 12.3 H Eos % (Auto) 1.3 Baso % (Auto) 0.4 Absolute Neuts (auto) 5.2 Absolute Lymphs (auto) 0.64 L Nucleated RBC % 0 Sodium 132 L Potassium 3.2 L Chloride 93 L Carbon Dioxide 33.0 H Anion Gap 6 BUN 18 Creatinine 0.68 L Est GFR (MDRD) Af Amer 147 Est GFR (MDRD) Non-Af 122 BUN/Creatinine Ratio 26.3 H Glucose 100 Calcium 9.2 Total Bilirubin 0.50 Direct Bilirubin 0.20 AST 16 ALT 24 Alkaline Phosphatase 91 Total Protein 7.2 Albumin 3.0 L Globulin 4.2 Urine Color Yellow Urine Clarity Sl. Cloudy Urine pH 6.5 Ur Specific [place] 1.015 Urine Protein 30 H Urine Glucose (UA) Normal Urine Ketones 5 H Urine Occult Blood Negative Urine Nitrite Negative Urine Bilirubin Negative Urine Urobilinogen 1 H Ur Leukocyte Esterase 500 H Urine RBC 0 SEEN Urine WBC 5-10 SEEN Ur Squamous Epith Cells 0-5 SEEN Amorphous Sediment 1+ Urine Bacteria 1+ Urine Mucus RARE Radiography Diagnostic Testing: Clinical Impression(s) from Imaging Studies Brain CT 02/25/24 19:03 IMPRESSION: No acute intracranial process. Electronically Signed: Claudine Bartholomew MD at 19:41 EDT , Discharge Plan Triage Chief Complaint: Alt LOC ED Provider: Zohaib Méndez Dx/Rx/DC Orders Clinical Impression: AMS (altered mental status), COPD (chronic obstructive pulmonary disease), Laryngeal squamous cell carcinoma, Cardiomyopathy, Atrial fibrillation with rapid ventricular response Prescriptions: No Action budesonide 1 mg/2 mL suspension for nebulization 1 mg inhalation BID Qty: 120 6RF guaifenesin [Adult Tussin Chest Congestion] 100 mg/5 mL liquid 600 mg PO Q6H PRN (Reason: congestion) Qty: 500 11RF ipratropium-albuterol 0.5 mg-3 mg(2.5 mg base)/3 mL solution for nebulization 3 ml inhalation TID Qty: 180 11RF morphine 10 mg/5 mL solution 10 mg PO Q6H PRN (Reason: pain) atorvastatin 40 mg Tablet 40 mg PO QHS Qty: 30 2RF acetaminophen 325 mg Tablet 650 mg PO Q4H PRN PRN (Reason: Pain Score 1-10) Qty: 0 0RF sennosides-docusate sodium [Stool Softener-Stimulant Laxat] 8.6-50 mg Tablet 2 tab PO BID Qty: 0 0RF thiamine HCl (vitamin B1) [Vitamin B-1] 100 mg Tablet 100 mg PO DAILYCM Qty: 0 0RF aspirin 81 mg Tablet,Delayed Release (Dr/Ec) 81 mg PO BREAKFAST Qty: 0 0RF carvedilol 3.125 mg Tablet 3.125 mg PO BID Qty: 0 0RF potassium chloride 20 mEq Tablet,Er Particles/Crystals 20 meq PO DAILYCM Qty: 0 0RF bupropion HCl 75 mg Tablet 75 mg PO BID Qty: 0 0RF lisinopril 2.5 mg Tablet 2.5 mg PO DAILY Qty: 0 0RF menthol-zinc oxide [Calmoseptine] 0.44-20.6 % Ointment 1 applic topical BID Qty: 0 0RF Protocol: *Topical Application Instructions APPLICATION INSTRUCTIONS: Apply to buttock nicotine 14 mg/24 hr patch 24 hour 1 patch transdermal DAILY ondansetron 4 mg tablet,disintegrating 4 mg PO Q6H PRN (Reason: nausea and vomiting) IV with Additives Jevity 1.5 1000 ML 80 mls/hr G-tube Ordered By: Mickey Palacios MD Last Taken: Unknown silver sulfadiazine [Silvadene] 1 % cream 1 applic topical BID Qty: 85 3RF Rx Instructions: apply a 1.5 mm thickness Primary Care Provider: Juan Rai Referrals: Juan Rai DO [Primary Care Provider] - Carlito Barkley MD [Med Staff - Active Staff] - As soon as possible (for PEG tube change) Print Language: Croatian Disposition Disposition: [facility] Facility Discharge Location: [facility]
[2024-02-25] MEDS: Ipratropium/Albuterol Sulfate 3 ML AMPUL.NEB INHALATION (17:39)
[2024-02-25 17:46] LABS: Absolute Lymphocyte Count 0.64 X10^3/uL (0.83-4.51); Absolute Neutrophil Count 5.2 X10^3/uL (2.0-7.7); Basophil# 0.03 X10^3/uL; Basophil% 0.4 % (0-1); Eosinophil# 0.09 X10^3/uL; Eosinophils% 1.3 % (0-5); Hemoglobin 9.9 g/dL (13.0-16.5); Lymphocyte # 0.64 X10^3/ul (0.83-4.51); Lymphocyte % 9.4 % (19-41); Mean Corp Hgb Conc 31.9 g/dL (32-36); Mean Corpuscular Hgb 29.7 pg (27.0-32.0); Mean Corpuscular Volume 93.1 fL (80-94); Mean Platelet Vol. 8.7 fl (6.2-12.0); Monocyte# 0.84 X10^3/uL; Monocyte% 12.3 % (0-10); NRBC Flagged by Analyzer 0 % (0-5); Neutrophil # 5.18 X10^3/uL (2.7-7.7); Neutrophil % 76.2 % (47-70); Platelet Count 395 K/mm3 (150-450); RBC Distribution Width CV 18.6 % (11.6-14.6); RBC Distribution Width SD 63.6 fl (35.1-43.9); Red Blood Count 3.33 M/mm3 (4.6-6.2); White Blood Count 6.8 K/mm3 (4.4-11.0)
[2024-02-25 17:58] LABS: AST(SGOT) 16 U/L (15-37); Alanine Aminotransfer ALT/SGPT 24 U/L (16-61); Alkaline Phosphatase 91 U/L (45-117); Anion Gap 6 (5-15); BUN 18 mg/dL (7-18); BUN/Creat Ratio 26.3 RATIO (10-20); Calcium,Total 9.2 mg/dL (8.5-10.1); Chloride 93 mmol/L (98-107); Creatinine, Serum 0.68 mg/dL (0.70-1.30); EST Glomerular Filtration Rate 122 mL/min (>60); Est Glom Filt Rate - Afr Amer 147 mL/min (>60); Globulin 4.2 g/dL (2.2-4.2); Glucose 100 mg/dL (74-106); Potassium 3.2 mmol/L (3.5-5.1); Protein, Total 7.2 g/dL (6.4-8.2); Sodium Level 132 mmol/L (136-145)
--- NOTE | 2024-02-25 18:03 | ED.RN ---
This RN called [facility], where the patient is currently living. The senior care RN explained to this RN that the patient was confused, running through the halls naked, pulling at his PEG tube and tracheostomy, and fighting with the staff. This RN completed an assessment on the patient, the patient was drowsy upon arrival, but after getting suctioned and a breathing treatment, has become alert. For this RN, the patient is A&Ox4 and remembers trying to take out his trach and PEG tube but states, I was just confused in the moment. notified.
[2024-02-25 18:31] LABS: Red Blood Cells-Urine 0 SEEN /hpf (0-5)
[2024-02-25 18:34] LABS: Color, Urine Yellow (Yellow); Glucose, Dipstick Normal (Normal); Ketone-Dipstick 5 mg/dl (Negative); Leukocyte Esterase-Dipstick 500 /ul (Negative); Nitrite-Dipstick Negative (Negative); Occult Blood-Urine Negative /ul (Negative); Protein-Dipstick 30 mg/dl (Negative); Specific Gravity, Urine 1.015 (1.002-1.030); Urine Bilirubin Dipstick Negative (Negative); Urine Clarity Sl. Cloudy (Clear); Urine Urobilinogen 1 mg/dl (Normal); Urine pH 6.5 (5.0 - 8.0)
[2024-02-25 18:53] LABS: Squamous Epithelial Cells - UA 0-5 SEEN /hpf (0-5); White Blood Cells 5-10 SEEN /hpf (0-5)
[2024-02-25 18:54] LABS: Amorphous Sediment 1+; Bacteria 1+ /hpf (None Seen); Mucous, Urine RARE /hpf (<or=2+)
--- NOTE | 2024-02-25 19:03 | CT_ITS ---
INDICATION: Altered mental status EXAMINATION: CT BRAIN - CT Head or Brain W/O Contrast Injection TECHNIQUE: Multiple axial images were obtained of the head without intravenous contrast. The protocol utilizes one or more of the following dose reduction techniques: automated exposure control, adjustment of mA and/or kV according to patient size,and/or use of iterative reconstruction technique. IV Contrast dosage and agent: None. RADIATION DOSAGE (If Supplied By Facility): CTDIvol = ( 44.99 ) mGy, DLP = ( 779.24 ) mGycm COMPARISON: Prior study dated: PET/CT dated November 03, [address] dated October 12, 2023 FINDINGS: BRAIN PARENCHYMA: No intra- or extra-axial hemorrhage. No evidence of acute infarct. No intracranial mass or mass effect. There is preservation of the orellana/white matter interface. Posterior fossa structures are unremarkable. CSF SPACES: Appropriate for age. No hydrocephalus. Basal cisterns are patent. There is a stable round high attenuation focus within the foramen of [place]ro consistent with a colloid cyst. CALVARIUM, SKULL BASE, PARANASAL SINUSES AND MASTOID AIR CELLS: Clear. No discrete lytic or blastic abnormalities. ORBITS: Both globes, extraocular muscles, optic nerves and retrobulbar fat appear unremarkable. CT/Brain/Head without Contrast IMPRESSION: No acute intracranial process. Electronically Signed: Claudine Bartholomew MD at 19:41 EDT ,
[2024-02-26] VITALS (12 sets, daily range): BP systolic 87–112; BP diastolic 63–94; PULSE 90–174; RESP 20; TEMP 36.9; O2SAT 95–100
--- NOTE | 2024-02-26 00:27 | CT_ITS ---
EXAM: CT ANGIOGRAPHY CHEST WITHOUT AND WITH INTRAVENOUS CONTRAST CLINICAL INDICATION: PE TECHNIQUE: Helically acquired angiography images were obtained of the chest without and with intravenous contrast. CTDIvol = ( 9.44 ) mGy, DLP = ( 258.23 ) mGycm This CT exam was performed using one or more of the following dose reduction techniques: automated exposure control, adjustment of the mA and/or kV according to patient size, and/or use of iterative reconstruction technique. MIP reconstructed images were created and reviewed. CONTRAST: IV 75mL [id number] COMPARISON: No relevant prior studies available. FINDINGS: PULMONARY ARTERIES: Unremarkable. Normal in caliber. No evidence of pulmonary embolism. AORTA: Unremarkable. No aortic aneurysm or dissection. GREAT VESSELS OF AORTIC ARCH: Unremarkable. Normal in caliber. No evidence of dissection. LUNGS AND PLEURAL SPACES: Bronchial wall thickening with subsegmental mucous plugging involving the left lower lobe. No consolidation. No pleural effusion or pneumothorax. Dependent atelectasis at the posterior lower lobes. No mass. HEART: Small pericardial effusion. No cardiomegaly. Moderate centrilobular emphysema. No significant coronary artery calcifications. MEDIASTINUM: Unremarkable. No mediastinal or hilar adenopathy. Esophagus is unremarkable. No hiatal hernia. THYROID: Unremarkable. No thyroid lesions. BONES/JOINTS: Unremarkable. No suspicious lytic or blastic abnormality. TUBES, LINES AND DEVICES: Tracheostomy device. CT/CTA Chest W/WO Contrast IMPRESSION: 1. No PE. 2. No pneumonia or other acute disease. 3. Small pericardial effusion. 4. Ancillary findings as above Electronically Signed: Emmanuel Elizondo MD at 2:16 EDT ,
[2024-02-26] MEDS: dilTIAZem 25 MG/5 ML Vial 10 MG IV BOLUS (00:40)
[2024-02-26] MEDS: Carvedilol 3.125 MG TABLET GT (01:06)
[2024-02-26] MEDS: dilTIAZem 25 MG/5 ML Vial 20 MG IV BOLUS (01:23)
--- NOTE | 2024-02-26 02:06 | ED.RN ---
While we were waiting for squad to arrive to transport the patient back to [facility], the patient's heart rate increased to 148 and his rhythm was irregular. MD was notified and EKG, chest CT, and medications were ordered. Orders were followed, CT showed potential for pneumonia. MD decided to admit for observation d/t irregular rhythm and infection. [facility] and family notified.
--- NOTE | 2024-02-26 02:11 | HP.PCM.HOS_ITS ---
HPI - General General Date of Admission: 02/26/24 Date of Service: 02/26/24 Chief Complaint: AMS. HPI Narrative CHACORTA CONCEPCION, is a 69 M who presents [facility] Medical History Herpes zoster Depression Former smoker On home oxygen therapy Atrial fibrillation Cardiomyopathy Alcoholism Laryngeal squamous cell carcinoma Esophageal mass Hyperlipidemia Chronic HFrEF (heart failure with reduced ejection fraction) Laryngeal mass Debility Wears dentures Wears glasses Cardiology follow-up encounter Difficulty swallowing Smoker High cholesterol COPD (chronic obstructive pulmonary disease) History of CHF (congestive heart failure) Agoraphobia CHF exacerbation Medical non-compliance Alcohol abuse Tobacco abuse Acute hypoxic respiratory failure Home Medications ?Medication ?Instructions ?Recorded ?Last Taken ?Type atorvastatin 40 mg tablet 40 mg PO QHS Cholesterol #30 tabs 10/15/23 10/14/23 Rx acetaminophen 325 mg tablet 650 mg (2 x 325 mg) PO Q4H PRN PRN 10/23/23 Unknown Rx Pain Score 1-10 #0 tabs aspirin 81 mg tablet,delayed 81 mg PO BREAKFAST #0 tabs 11/26/23 Unknown Rx release bupropion HCl 75 mg tablet 75 mg PO BID #0 tabs 11/26/23 Unknown Rx carvedilol 3.125 mg tablet 3.125 mg PO BID #0 tabs 11/26/23 Unknown Rx lisinopril 2.5 mg tablet 2.5 mg PO DAILY #0 tabs 11/26/23 Unknown Rx menthol 0.44 %-zinc oxide 20.6 % 1 applic topical BID #0 grams 11/26/23 Unknown Rx topical ointment (Calmoseptine) potassium chloride 20 mEq 20 meq PO DAILYCM #0 tabs 11/26/23 Unknown Rx tablet,extended release(part/cryst) sennosides 8.6 mg-docusate sodium 2 tab PO BID #0 tabs 11/26/23 Unknown Rx 50 mg tablet (Stool Softener-Stimulant Laxative) thiamine HCl (vitamin B1) 100 mg 100 mg PO DAILYCM #0 tabs 11/26/23 Unknown Rx tablet (Vitamin B-1) silver sulfadiazine 1 % topical 1 applic topical BID #85 grams 12/21/23 Unknown Rx cream (Silvadene) nicotine 14 mg/24 hr daily 1 patch transdermal DAILY 12/29/23 Unknown History transdermal patch ondansetron 4 mg disintegrating 4 mg PO Q6H PRN nausea and vomiting 12/29/23 Unknown History tablet IV with Additives 80 mls/hr G-tube 01/03/24 Unknown Rx budesonide 1 mg/2 mL suspension 1 mg (2 mL) inhalation BID #120 mL 02/02/24 Unknown Rx for nebulization guaifenesin 100 mg/5 mL oral 600 mg (30 mL) PO Q6H PRN 02/02/24 Unknown Rx liquid (Adult Tussin Chest congestion #500 mL Congestion) ipratropium 0.5 mg-albuterol 3 mg 3 ml inhalation TID #180 mL 02/02/24 Unknown Rx (2.5 mg base)/3 mL nebulization soln morphine 10 mg/5 mL oral solution 10 mg PO Q6H PRN pain 02/08/24 Unknown History Allergy/AdvReac Type Severity Reaction Status Date / Time No Known Allergies Allergy Verified 02/25/24 16:44 Family History Father Pacemaker Surgical History History of tracheostomy History of laryngoscopy History of surgery Social History household members: none current occupational status: retired Smoking Status: Former smoker alcohol intake: current alcohol intake frequency: 3 or more drinks per day Alcohol type: beer details: 6 24 ounce cans of beer daily. substance use type: does not use caffeine: Yes Type: coffee Vital Signs Vital Signs Vital Signs: 02/25/24 16:38 02/25/24 16:44 02/25/24 17:40 Temperature 98.3 F 98.3 F Temperature Source Oral Oral Pulse Rate 96 97 92 Respiratory Rate 20 H 20 H 18 Respiratory Pattern Normal Blood Pressure 98/73 98/73 Blood Pressure Mean 81 81 Pulse Ox 98 98 Oxygen Delivery Method Trach Collar Trach Collar Oxygen Flow Rate (L/min) 5 6 02/25/24 17:44 02/25/24 18:00 02/25/24 19:00 Temperature 98.3 F 98.3 F 98.3 F Temperature Source Oral Oral Oral Pulse Rate 99 98 93 Respiratory Rate 20 H 20 H 20 H Respiratory Pattern Blood Pressure 101/78 111/97 H 112/72 Blood Pressure Mean 85 101 85 Pulse Ox 100 100 100 Oxygen Delivery Method Trach Collar Trach Collar Room Air Oxygen Flow Rate (L/min) 6 6 02/25/24 20:00 02/25/24 20:38 02/25/24 22:00 Temperature 98.5 F 98.5 F Temperature Source Oral Pulse Rate 103 H 103 H 96 Respiratory Rate 20 H 20 H 20 H Respiratory Pattern Blood Pressure 111/69 111/69 108/72 Blood Pressure Mean 83 83 84 Pulse Ox 100 100 97 Oxygen Delivery Method Trach Collar Trach Collar Oxygen Flow Rate (L/min) 6 6 02/26/24 00:00 02/26/24 01:59 02/26/24 02:00 Temperature 98.5 F Temperature Source Pulse Rate 147 H 95 90 Respiratory Rate 20 H 20 H 20 H Respiratory Pattern Blood Pressure 101/73 87/63 L 87/63 L Blood Pressure Mean 82 71 71 Pulse Ox 100 95 95 Oxygen Delivery Method Trach Collar Trach Collar Oxygen Flow Rate (L/min) 6 6 Results Lab / Micro Data 02/25/24 17:34 02/25/24 17:34 Labs: Laboratory Results - last 24 hr 02/25/24 17:34: WBC 6.8, RBC 3.33 L, Hgb 9.9 L, Hct 31.0 L, MCV 93.1, MCH 29.7, MCHC 31.9 L, RDW Std Deviation 63.6 H, RDW Coeff of Elidia 18.6 H, Plt Count 395, MPV 8.7, Immature Gran % (Auto) 0.400, Neut % (Auto) 76.2 H, Lymph % (Auto) 9.4 L, [place] % (Auto) 12.3 H, Eos % (Auto) 1.3, Baso % (Auto) 0.4, Absolute Neuts (auto) 5.2, Absolute Lymphs (auto) 0.64 L, Nucleated RBC % 0, Sodium 132 L, P otassium 3.2 L, Chloride 93 L, Carbon Dioxide 33.0 H, Anion Gap 6, BUN 18, C reatinine 0.68 L, Est GFR (MDRD) Af Amer 147, Est GFR (MDRD) Non-Af 122, B UN/Creatinine Ratio 26.3 H, Glucose 100, Calcium 9.2, Total Bilirubin 0.50, Direct Bilirubin 0.20, AST 16, ALT 24, Alkaline Phosphatase 91, Total Protein 7.2, Albumin 3.0 L, Globulin 4.2 02/25/24 18:25: Urine Color Yellow, Urine Clarity Sl. Cloudy, Urine pH 6.5, Ur Specific [place] 1.015, Urine Protein 30 H, Urine Glucose (UA) Normal, Urine Ketones 5 H, Urine Occult Blood Negative, Urine Nitrite Negative, Urine Bilirubin Negative, Urine Urobilinogen 1 H, Ur Leukocyte Esterase 500 H, Urine RBC 0 SEEN, Urine WBC 5-10 SEEN, Ur Squamous Epith Cells 0-5 SEEN, Amorphous Sediment 1+, Urine Bacteria 1+, Urine Mucus RARE 02/26/24 00:33: Magnesium 2.1 Imaging Radiology Impression Brain CT 02/25/24 19:03 IMPRESSION: No acute intracranial process. Electronically Signed: Claudine Bartholomew MD at 19:41 EDT ,
--- NOTE | 2024-02-26 03:20 | EKG12_ITS ---
Test Reason : REPEAT Blood Pressure : / mmHG Vent. Rate : 097 BPM Atrial Rate : 097 BPM P-R Int : 148 ms QRS Dur : 080 ms QT Int : 366 ms P-R-T Axes : 088 062 085 degrees QTc Int : 464 ms Normal sinus rhythm Normal ECG Confirmed by SENIA REYNOLDS, NAILA ([id number]), editor sound SRAVANTHI GALO ([id number]) on 02/29/2024 9:00:43 AM Referred By: Zohaib Méndez Confirmed By:NAILA CONN MD
[2024-02-26 03:49] LABS: Troponin-I HS 8 pg/mL (3.0-78.0)
--- NOTE | 2024-02-26 03:57 | ED.RN ---
While we were waiting for squad to arrive to transport the patient back to [facility], the patient's heart rate increased to 148 and his rhythm was irregular. MD was notified and EKG, chest CT, and medications were ordered. Orders were followed.
[2024-02-26 11:36] LABS: Magnesium 2.3 mg/dL (1.6-2.6)
== END 2024-02-26 06:58 | disposition skilled nursing facility (03) ==
PROVIDERS: Emergency Medicine; Emergency Provider Emergency Medicine; PCP Internal Medicine; Referring Provider Emergency Medicine; Visit Provider Emergency Medicine
DX: R41.82 Altered mental status, unspecified (principal); Z93.0 Tracheostomy status; Z93.1 Gastrostomy status; C32.9 Malignant neoplasm of larynx, unspecified; I50.22 Chronic systolic (congestive) heart failure; J44.9 Chronic obstructive pulmonary disease, unspecified; I48.91 Unspecified atrial fibrillation; I42.9 Cardiomyopathy, unspecified; E78.00 Pure hypercholesterolemia, unspecified; Z99.81 Dependence on supplemental oxygen; Z79.82 Long term (current) use of aspirin; Z79.899 Other long term (current) drug therapy; Z87.891 Personal history of nicotine dependence
CPT/HCPCS: 70450; 71275; 80048; 80076; 81001; 83735; 84484; 85025; 87077; 87086; 87088; 93005; 94640; 96374; 96376; 99285; J7050; Q9967; A4216; J0153

== ENCOUNTER 2024-03-07 12:01 | Inpatient (IN) | payer MEDICARE, MEDICAID, SELFPAY ==
[2024-03-07] VITALS (11 sets, daily range): BP systolic 94–122; BP diastolic 67–81; PULSE 87–119; RESP 16–28; TEMP 36.3–37; O2SAT 90–100; BMI 17.6
--- NOTE | 2024-03-07 12:12 | EKG12_ITS ---
Test Reason : SOB Blood Pressure : / mmHG Vent. Rate : 118 BPM Atrial Rate : 118 BPM P-R Int : 162 ms QRS Dur : 080 ms QT Int : 326 ms P-R-T Axes : 084 047 079 degrees QTc Int : 456 ms Sinus tachycardia Otherwise normal ECG Confirmed by Carlito Martell ([id number]), video effects editor AELXANDRIA ROSS ([id number]) on 03/09/2024 6:29:10 AM Referred By: Confirmed By:Carlito Martell
--- NOTE | 2024-03-07 12:16 | CT_ITS ---
STUDY: CTA CHEST REASON FOR EXAM: Male, 69 years old. Known CA, assess for PE RADIATION DOSAGE (If Supplied By Facility): CTDIvol = ( 15.00 ) mGy, DLP = ( 232.07 ) mGycm TECHNIQUE: The examination was performed with the intravenous administration of IV 100mL Isovue-370. Post-processing of the angiographic images was performed, with multiplanar reformation and 3D reconstruction. Individualized dose optimization techniques were used for this CT. COMPARISON: Comparison is made with prior study of February 26, 2024. FINDINGS: A right-sided portacatheter is seen. A tracheostomy is in situ with the tip in the mid trachea. Normal enhancement of the main pulmonary artery and right and left pulmonary arteries. Normal enhancement of the bilateral peripheral pulmonary arteries. There is no demonstrated pulmonary embolism. There is atherosclerotic calcification of the aortic arch with tortuosity. There is no demonstrated aortic dissection. There are calcifications of the coronary arteries. Minimal pericardial thickening. There are visualized mediastinal lymph nodes, which are within normal size limits, and with normal morphology. Normal hilar regions. Secretions/debris seen in the main left bronchus extending into the interlobar branches as well as branches in the left upper lobe. The lungs are well expanded. Increased markings at the left lung base suggestive of a atelectasis and/or scarring. Normal pleura. Normal chest wall structures. There are degenerative changes of thoracic spine. Normal visualized upper abdomen. CT/CTA Chest W/WO Contrast IMPRESSION: No evidence of pulmonary embolism. Bronchial wall thickening with mucous/secretions in branches of the left mainstem bronchus extending to the left lower lobe as well as central portion of the left upper lobe. Mild increased markings at the left lung base suggestive of scarring and/or atelectasis. Minimal pericardial thickening. Electronically Signed: Patrice Lehman MD at 14:20 EDT ,
--- NOTE | 2024-03-07 12:19 | ED.VIS.DYS ---
HPI History of Present Illness Chief Complaint: Shortness of Breath Narrative Narrative: Chief complaint and HPI: Shortness of breath. 69-year-old male history of recurrent laryngeal cancer (follows with [facility] locally) status post trach (this spring) and PEG, COPD presenting to the emergency room with shortness of breath. Patient states that his last dose of chemotherapy and radiation was January 03. Patient states he woke up today with increased shortness of breath. He denies any fever, chills, URI symptoms, chest pain, abdominal pain, nausea, vomiting, diarrhea. Patient wears 2 L nasal cannula at baseline. Patient had basic labs performed today at the cancer center and on chart review his white count was 13.2. He was found to be 84% and was increased to 3 L and sent to the emergency department . However upon presentation to emergency department the oxygen change they were using was empty he was placed on 2 L nasal cannula oxygen at 93%. Review of systems: See HPI Medications: As listed on the chart Allergies: As listed on the chart PFSH: Per chart Vital signs: As listed on the chart. Reviewed. Physical exam: Gen: A&O x3, NAD Head: Normocephalic, atraumatic Eyes: No sclera icterus, conjunctiva clear ENT: Dry mucous membranes Neck: Trachea midline, No JVD, + trach without any increase secretion CV: Tachycardic, regular rhythm, no murmurs, no peripheral edema Resp: Lungs diminished in the bilateral bases, diffuse wheezing, on nasal GI: Abd soft, non-distended, non-tender, no r/r/g Musc: Full ROM, no deformity Skin: Warm, dry Neuro: Alert, oriented, grossly intact, sensation intact Psych: Cooperative, appropriate mood and affect [facility] Medical History (Updated 03/07/24 @ 11:48 by Marivel Reyna NP, SPONSORSHIP MANAGER-C) Anemia Herpes zoster Depression Former smoker On home oxygen therapy Atrial fibrillation Cardiomyopathy Alcoholism Laryngeal squamous cell carcinoma Esophageal mass Hyperlipidemia Chronic HFrEF (heart failure with reduced ejection fraction) Laryngeal mass Debility Wears dentures Wears glasses Cardiology follow-up encounter Difficulty swallowing Smoker High cholesterol COPD (chronic obstructive pulmonary disease) History of CHF (congestive heart failure) Agoraphobia CHF exacerbation Medical non-compliance Alcohol abuse Tobacco abuse Acute hypoxic respiratory failure Home Medications ?Medication ?Instructions ?Recorded ?Last Taken ?Type atorvastatin 40 mg tablet 40 mg PO QHS Cholesterol #30 tabs 10/15/23 10/14/23 Rx acetaminophen 325 mg tablet 650 mg (2 x 325 mg) PO Q4H PRN PRN 10/23/23 Unknown Rx Pain Score 1-10 #0 tabs aspirin 81 mg tablet,delayed 81 mg PO BREAKFAST #0 tabs 11/26/23 Unknown Rx release bupropion HCl 75 mg tablet 75 mg PO BID #0 tabs 11/26/23 Unknown Rx carvedilol 3.125 mg tablet 3.125 mg PO BID #0 tabs 11/26/23 Unknown Rx lisinopril 2.5 mg tablet 2.5 mg PO DAILY #0 tabs 11/26/23 Unknown Rx menthol 0.44 %-zinc oxide 20.6 % 1 applic topical BID #0 grams 11/26/23 Unknown Rx topical ointment (Calmoseptine) potassium chloride 20 mEq 20 meq PO DAILYCM #0 tabs 11/26/23 Unknown Rx tablet,extended release(part/cryst) sennosides 8.6 mg-docusate sodium 2 tab PO BID #0 tabs 11/26/23 Unknown Rx 50 mg tablet (Stool Softener-Stimulant Laxative) thiamine HCl (vitamin B1) 100 mg 100 mg PO DAILYCM #0 tabs 11/26/23 Unknown Rx tablet (Vitamin B-1) silver sulfadiazine 1 % topical 1 applic topical BID #85 grams 12/21/23 Unknown Rx cream (Silvadene) nicotine 14 mg/24 hr daily 1 patch transdermal DAILY 12/29/23 Unknown History transdermal patch ondansetron 4 mg disintegrating 4 mg PO Q6H PRN nausea and vomiting 12/29/23 Unknown History tablet IV with Additives 80 mls/hr G-tube 01/03/24 Unknown Rx budesonide 1 mg/2 mL suspension 1 mg (2 mL) inhalation BID #120 mL 02/02/24 Unknown Rx for nebulization guaifenesin 100 mg/5 mL oral 600 mg (30 mL) PO Q6H PRN 02/02/24 Unknown Rx liquid (Adult Tussin Chest congestion #500 mL Congestion) ipratropium 0.5 mg-albuterol 3 mg 3 ml inhalation TID #180 mL 02/02/24 Unknown Rx (2.5 mg base)/3 mL nebulization soln morphine 10 mg/5 mL oral solution 10 mg PO Q6H PRN pain 02/08/24 Unknown History apixaban 5 mg tablet (Eliquis) 5 mg PO BID 30 days #60 tabs 02/26/24 Unknown Rx Allergy/AdvReac Type Severity Reaction Status Date / Time No Known Allergies Allergy Verified 03/07/24 10:50 Family History Father Pacemaker Surgical History History of tracheostomy History of laryngoscopy History of surgery Social History household members: none current occupational status: retired Smoking Status: Former smoker alcohol intake: current alcohol intake frequency: 3 or more drinks per day Alcohol type: beer details: 6 24 ounce cans of beer daily. substance use type: does not use caffeine: Yes Type: coffee EXAM Physical Exam Const Vital Signs: 03/07/24 12:02 03/07/24 12:09 03/07/24 13:01 Temperature 97.3 F L Temperature Source Temporal Pulse Rate 119 H 113 H Respiratory Rate 22 H 22 H Respiratory Effort Short of Breath Respiratory Depth Shallow Blood Pressure 113/72 106/81 H Blood Pressure Mean 85 89 Pulse Ox 93 90 Oxygen Delivery Method Trach Collar Trach Collar Oxygen Flow Rate (L/min) 2 3 03/07/24 13:14 03/07/24 14:00 Temperature 97.8 F Temperature Source Temporal Pulse Rate 107 H Respiratory Rate 19 H Respiratory Effort Respiratory Depth Blood Pressure 122/72 H Blood Pressure Mean 88 Pulse Ox 91 Oxygen Delivery Method Trach Collar Trach Collar Oxygen Flow Rate (L/min) 3 3 MDM MDM MDM Narrative Medical decision making narrative: 69-year-old male presents for evaluation of shortness of breath. Patient was found to be hypoxic at cancer center however his oxygen tank was empty on arrival. He was placed on his baseline 2 L nasal cannula of oxygen with improvement in his saturations. Shortness of breath started today. He does have diffuse wheezing. Differential diagnosis includes but is not limited to COPD exacerbation, viral illness, pneumonia. Patient is tachycardic with known cancer, cannot rule out PE. Patient is on Eliquis twice daily. Low suspicion for CHF and ACS however still in the differential. NS bolus, Solu-Medrol, DuoNebs ordered for symptoms. Cardiac/respiratory workup ordered including CTA chest. EKG reviewed, see below. Labs were reviewed from earlier this morning. CBC with mild leukocytosis of 13.2. Patient has baseline anemia. CMP shows chronic hyponatremia and chronic hypochloremia. No MUNA. BNP unremarkable. Troponin unremarkable. CTA negative for PE. Patient does have bronchial wall thickening with mucus secretion and branches of the left mainstream bronchus extending to the left lower lobe. Mild increased markings in the left lung base. No obvious pneumonia. On reexamination, patient is requiring increased oxygen. He is currently on 6 L nasal cannula at 91%. He still has diffuse wheezing. Another DuoNeb ordered. Patient has not had COPD exacerbation possibly secondary to bronchitis. Azithromycin ordered. Patient and family updated of all the results and the plan for admission. They confirmed understanding. Patient discussed with the hospitalist service Dr. Sam who accepted admission. EKG: Interpreted by me/EM physician: EKG shows sinus tachycardia without any acute ischemic changes. Heart rate 118. Impression: 1. Acute on chronic hypoxic respiratory failure 2. COPD exacerbation 3. Bronchitis Lab Data Labs: Laboratory Results - last 24 hr 03/07/24 13:22 Troponin I High Sens 6 B-Natriuretic Peptide 21.3 Radiography Diagnostic Testing: Clinical Impression(s) from Imaging Studies Chest CTA 03/07/24 12:16 IMPRESSION: No evidence of pulmonary embolism. Bronchial wall thickening with mucous/secretions in branches of the left mainstem bronchus extending to the left lower lobe as well as central portion of the left upper lobe. Mild increased markings at the left lung base suggestive of scarring and/or atelectasis. Minimal pericardial thickening. Electronically Signed: Patrice Lehman MD at 14:20 EDT , Discharge Plan Triage Chief Complaint: Shortness of Breath ED Provider: Ronnie Ba Dx/Rx/DC Orders Prescriptions: No Action budesonide 1 mg/2 mL suspension for nebulization 1 mg inhalation BID Qty: 120 6RF guaifenesin [Adult Tussin Chest Congestion] 100 mg/5 mL liquid 600 mg PO Q6H PRN (Reason: congestion) Qty: 500 11RF ipratropium-albuterol 0.5 mg-3 mg(2.5 mg base)/3 mL solution for nebulization 3 ml inhalation TID Qty: 180 11RF morphine 10 mg/5 mL solution 10 mg PO Q6H PRN (Reason: pain) atorvastatin 40 mg Tablet 40 mg PO QHS Qty: 30 2RF Eliquis 5 mg tablet 5 mg PO BID 30 Days Qty: 60 0RF acetaminophen 325 mg Tablet 650 mg PO Q4H PRN PRN (Reason: Pain Score 1-10) Qty: 0 0RF sennosides-docusate sodium [Stool Softener-Stimulant Laxat] 8.6-50 mg Tablet 2 tab PO BID Qty: 0 0RF thiamine HCl (vitamin B1) [Vitamin B-1] 100 mg Tablet 100 mg PO DAILYCM Qty: 0 0RF aspirin 81 mg Tablet,Delayed Release (Dr/Ec) 81 mg PO BREAKFAST Qty: 0 0RF carvedilol 3.125 mg Tablet 3.125 mg PO BID Qty: 0 0RF potassium chloride 20 mEq Tablet,Er Particles/Crystals 20 meq PO DAILYCM Qty: 0 0RF bupropion HCl 75 mg Tablet 75 mg PO BID Qty: 0 0RF lisinopril 2.5 mg Tablet 2.5 mg PO DAILY Qty: 0 0RF menthol-zinc oxide [Calmoseptine] 0.44-20.6 % Ointment 1 applic topical BID Qty: 0 0RF Protocol: *Topical Application Instructions APPLICATION INSTRUCTIONS: Apply to buttock nicotine 14 mg/24 hr patch 24 hour 1 patch transdermal DAILY ondansetron 4 mg tablet,disintegrating 4 mg PO Q6H PRN (Reason: nausea and vomiting) IV with Additives Jevity 1.5 1000 ML 80 mls/hr G-tube Ordered By: Mickey Palacios MD Last Taken: Unknown silver sulfadiazine [Silvadene] 1 % cream 1 applic topical BID Qty: 85 3RF Rx Instructions: apply a 1.5 mm thickness Primary Care Provider: Juan Rai Referrals: Juan Rai DO [Primary Care Provider] - Print Language: Swedish
[2024-03-07] MEDS: Ipratropium/Albuterol Sulfate 3 ML AMPUL.NEB 9 ML INHALATION (12:29)
[2024-03-07] MEDS: 0.9% Normal Saline (500mL Bag) 500 ML 999 ML IV (13:07)
[2024-03-07] MEDS: MethylPREDNISolone 125 MG/2 ML Vial IV (13:11)
[2024-03-07 13:48] LABS: BNP,B-Type NATRIURETIC PEPTIDE 21.3 pg/mL (0-100); Troponin-I HS (w/2H Reflex) 6 pg/mL (3.0-78.0)
[2024-03-07] MEDS: Ipratropium/Albuterol Sulfate 3 ML AMPUL.NEB INHALATION ×2 (14:54→19:37)
--- NOTE | 2024-03-07 15:25 | HP.PCM.HOS_ITS ---
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 Of note patient went to the cancer center for routine labs. It was noted that his white count was slightly elevated at 13.2. Also because patient was having difficulty breathing he was sent to the emergency department. At baseline he requires 2 L oxygen. However on presentation patient required 6 L oxygen. Patient has a PEG tube. Reportedly patient has had about 30 pounds weight loss since October 08, 2023 so he gets continuous tube feeding. [facility] Medical History Anemia Herpes zoster Depression Former smoker On home oxygen therapy Atrial fibrillation Cardiomyopathy Alcoholism Laryngeal squamous cell carcinoma Esophageal mass Hyperlipidemia Chronic HFrEF (heart failure with reduced ejection fraction) Laryngeal mass Debility Wears dentures Wears glasses Cardiology follow-up encounter Difficulty swallowing Smoker High cholesterol COPD (chronic obstructive pulmonary disease) History of CHF (congestive heart failure) Agoraphobia CHF exacerbation Medical non-compliance Alcohol abuse Tobacco abuse Acute hypoxic respiratory failure Home Medications ?Medication ?Instructions ?Recorded ?Last Taken ?Type atorvastatin 40 mg tablet 40 mg PO QHS Cholesterol #30 tabs 24 10/14/23 Rx aspirin 81 mg tablet,delayed 81 mg PO BREAKFAST #0 tabs 11/26/23 Unknown Rx release bupropion HCl 75 mg tablet 75 mg PO BID #0 tabs 11/26/23 Unknown Rx carvedilol 3.125 mg tablet 3.125 mg PO BID #0 tabs 11/26/23 Unknown Rx potassium chloride 20 mEq 20 meq PO DAILYCM #0 tabs 11/26/23 Unknown Rx tablet,extended release(part/cryst) sennosides 8.6 mg-docusate sodium 2 tab PO BID #0 tabs 11/26/23 Unknown Rx 50 mg tablet (Stool Softener-Stimulant Laxative) thiamine HCl (vitamin B1) 100 mg 100 mg PO DAILYCM replacement #0 11/26/23 Unknown Rx tablet (Vitamin B-1) tabs nicotine 14 mg/24 hr daily 1 patch transdermal DAILY 12/29/23 Unknown History transdermal patch IV with Additives 80 mls/hr G-tube 01/03/24 Unknown Rx guaifenesin 100 mg/5 mL oral 600 mg (30 mL) PO Q6H PRN 02/02/24 Unknown Rx liquid (Adult Tussin Chest congestion #500 mL Congestion) ipratropium 0.5 mg-albuterol 3 mg 3 ml inhalation TID #180 mL 02/02/24 Unknown Rx (2.5 mg base)/3 mL nebulization soln morphine 10 mg/5 mL oral solution 10 mg PO Q6H PRN pain 02/08/24 Unknown History apixaban 5 mg tablet (Eliquis) 5 mg PO BID 30 days #60 tabs 02/26/24 Unknown Rx Allergy/AdvReac Type Severity Reaction Status Date / Time No Known Allergies Allergy Verified 03/07/24 10:50 Family History Father Pacemaker Surgical History History of tracheostomy History of laryngoscopy History of surgery Social History household members: none current occupational status: retired Smoking Status: Former smoker alcohol intake: current alcohol intake frequency: 3 or more drinks per day Alcohol type: beer details: 6 24 ounce cans of beer daily. substance use type: does not use caffeine: Yes Type: coffee ROS ROS Narrative Pertinent positives and pertinent negatives as noted in HPI. All other systems were reviewed and are negative Vital Signs Vital Signs Vital Signs: 03/07/24 12:02 03/07/24 12:09 03/07/24 13:01 Temperature 97.3 F L Temperature Source Temporal Pulse Rate 119 H 113 H Respiratory Rate 22 H 22 H Respiratory Effort Short of Breath Respiratory Depth Shallow Blood Pressure 113/72 106/81 H Blood Pressure Mean 85 89 Pulse Ox 93 90 Oxygen Delivery Method Trach Collar Trach Collar Oxygen Flow Rate (L/min) 2 3 03/07/24 13:14 03/07/24 14:00 Temperature 97.8 F Temperature Source Temporal Pulse Rate 107 H Respiratory Rate 19 H Respiratory Effort Respiratory Depth Blood Pressure 122/72 H Blood Pressure Mean 88 Pulse Ox 91 Oxygen Delivery Method Trach Collar Trach Collar Oxygen Flow Rate (L/min) 3 3 Weight Weight: 54 kg Body Mass Index (BMI) 17.6 Physical Exam Narrative Physical exam: General: Well-nourished, well-developed. Head: Normocephalic, atraumatic, no tenderness Eyes: Vision is grossly intact. EOMI ENT, no trauma, moist mucous membranes, no rhinorrhea Neck: Tracheostomy. CVS: irregularly irregular rate and rhythm. S1-S2 present. No murmur, gallop or rub. Respiratory : Rhonchi clear to auscultation bilaterally, chest wall nontender Abdomen: PEG tube in place. Soft, nontender, nondistended, normal bowel sounds, no masses : Deferred Back: Nontender, no CVA tenderness, no midline spinal tenderness, deformities, step-offs Extremities: Nontender full range of motion, no trauma. Hyperkeratotic toenails. Skin: Normal color, no trauma, abrasions Neuro: Alert, oriented, cranial nerves II through XII grossly intact. Psychiatry: Normal mood. Normal affect. Not depressed. Not anxious. Results Lab / Micro Data Labs: Laboratory Results - last 24 hr 03/07/24 13:22: Troponin I High Sens 6, B-Natriuretic Peptide 21.3 Micro: Microbiology 03/07/24 13:22 Mucosa - Nose SARS-CoV-2, Influenza & RSV (PCR) - Final Imaging Radiology Impression Chest CTA 03/07/24 12:16 IMPRESSION: No evidence of pulmonary embolism. Bronchial wall thickening with mucous/secretions in branches of the left mainstem bronchus extending to the left lower lobe as well as central portion of the left upper lobe. Mild increased markings at the left lung base suggestive of scarring and/or atelectasis. Minimal pericardial thickening. Electronically Signed: Patrice Lehman MD at 14:20 EDT , Assessment & Plan Assessment/Plan (1) COPD exacerbation: PLAN: Plan COPD exacerbation Chest CT was independently interpreted with results consistent with radiology interpretation of no evidence of pulmonary embolism; Bronchial wall thickening with mucous/secretions in branches of the left mainstem bronchus extending to the left lower lobe as well as central portion of the left upper lobe. Mild increased markings at the left lung base suggestive of scarring and/or atelectasis. Minimal pericardial thickening.. Agrees with radiology interpretation Scheduled DuoNeb. Outpatient as needed Mucinex made scheduled. Mucomyst ordered. Albuterol as needed Solu-Medrol [id number] ordered Azithromycin IV started emergency department and continued. Trach mist to trachea. 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 Severe protein-calorie manage patient BMI of 17.6 kg/m?. Home Jevity 1.5 tube feeding continued. Pur?ed diet continued DVT prophylaxis: Not indicated as patient is on Eliquis for A-fib and Eliquis has been continued Advance care planning: Discussed with patient and family advanced directives as well as CODE STATUS. Explained various CODE STATUS: FULL CODE, DNR CCA, DNR CCA with no intubation, and DNR CC- and what each meant. Patient elected to be a full code with CPR and intubation if warranted. Order was placed. Surrogate decision maker is patient's daughter Georgina Monsalve; time spent on discussion 16 minutes. Time spent in the patient's overall evaluation,decision-making process, review of diagnostic data, adjustment of management, discussion with other providers, nursing and ancillary staff involved in patient's care documentation, 75 minutes. Charges/Coding Visit Charges Inpatient E&M: 69662 Init Hosp L3 Procedures Hospitalists Procedures: 17149 Advncd Care Plan 30 Min
[2024-03-07 15:26] LABS: Reflex Troponin-HS? (from REC) Y
[2024-03-07] MEDS: Azithromycin 500 MG in Dextrose 5%-Water (250mL Bag) 250 ML 250 MG IV (16:17)
[2024-03-07 16:27] LABS: Troponin-I HS 6 pg/mL (3.0-78.0)
[2024-03-07] MEDS: Jevity 1.5 1,000 ML 60 ML GT (18:27)
[2024-03-07] MEDS: Acetylcysteine 800 MG/4 ML VIAL.NEB. INHALATION (19:37)
[2024-03-07] MEDS: buPROPion 75 MG Tablet PO (22:01)
[2024-03-07] MEDS: Senna/Docusate Sodium 1 Tablet 2 TABLET PO (22:01)
[2024-03-07] MEDS: Atorvastatin Calcium 40 MG Tablet PO (22:02)
[2024-03-07] MEDS: APIXABAN 5 MG TABLET PO (22:02)
[2024-03-07] MEDS: 0.9% Saline Lock 10 ML Syringe IV (23:48)
[2024-03-07] MEDS: Carvedilol 3.125 MG TABLET PO (23:48)
[2024-03-08] VITALS (11 sets, daily range): BP systolic 92–110; BP diastolic 65–70; PULSE 84–96; RESP 16–20; TEMP 36.3–36.7; O2SAT 94–99
[2024-03-08] MEDS: Acetylcysteine 800 MG/4 ML VIAL.NEB. INHALATION ×4 (01:25→19:32)
[2024-03-08] MEDS: Ipratropium/Albuterol Sulfate 3 ML AMPUL.NEB INHALATION ×4 (01:25→19:32)
[2024-03-08 06:28] LABS: Basophil# 0.01 X10^3/uL; Basophil% 0.1 % (0-1); Hemoglobin 9.4 g/dL (13.0-16.5); Lymphocyte % 3.1 % (19-41); Mean Corp Hgb Conc 32.4 g/dL (32-36); Mean Corpuscular Hgb 30.4 pg (27.0-32.0); Mean Corpuscular Volume 93.9 fL (80-94); Monocyte# 0.34 X10^3/uL; Monocyte% 2.7 % (0-10); NRBC Flagged by Analyzer 0 % (0-5); Neutrophil # 11.97 X10^3/uL (2.7-7.7); Neutrophil % 93.6 % (47-70); POSITIVE DIFFERENTIAL YES; Platelet Count 355 K/mm3 (150-450); RBC Distribution Width CV 17.8 % (11.6-14.6); RBC Distribution Width SD 61.1 fl (35.1-43.9); Red Blood Count 3.09 M/mm3 (4.6-6.2); White Blood Count 12.8 K/mm3 (4.4-11.0)
[2024-03-08] MEDS: 0.9% Saline Lock 10 ML Syringe IV ×3 (06:28→14:10)
[2024-03-08 06:36] LABS: Differential Indicated SCAN CRITERIA MET
[2024-03-08 07:40] LABS: Anion Gap 10 (5-15); BUN 17 mg/dL (7-18); BUN/Creat Ratio 28.1 RATIO (10-20); Calcium,Total 8.9 mg/dL (8.5-10.1); Chloride 98 mmol/L (98-107); EST Glomerular Filtration Rate 141 mL/min (>60); Est Glom Filt Rate - Afr Amer 171 mL/min (>60); Estimated Creatinine Clearance 66.69 ml/min; Glucose 171 mg/dL (74-106); Potassium 3.6 mmol/L (3.5-5.1); Sodium Level 133 mmol/L (136-145)
[2024-03-08] MEDS: Potassium Chloride Oral Tablet 20 MEQ GT (09:49)
[2024-03-08] MEDS: Thiamine Hydrochloride 100 MG Tablet GT (09:49)
[2024-03-08] MEDS: buPROPion 75 MG Tablet GT ×2 (09:50→20:36)
[2024-03-08] MEDS: Carvedilol 3.125 MG TABLET GT (09:50)
[2024-03-08] MEDS: Senna/Docusate Sodium 1 Tablet 2 TABLET GT (09:50)
[2024-03-08] MEDS: Aspirin 81 MG TAB.CHEW GT (09:50)
[2024-03-08] MEDS: Azithromycin 500 MG in Dextrose 5%-Water (250mL Bag) 250 ML 250 MG IV (09:52)
[2024-03-08] MEDS: APIXABAN 5 MG TABLET GT ×2 (09:52→20:35)
--- NOTE | 2024-03-08 09:58 | CASEMGMT ---
LIAM called patient's daughter and VANE Erickson. LIAM confirmed patient's plan is to return to [facility] at discharge. Georgina said she will transport patient back, she does have portable O2 for patient. Mary Anne SCHILLING
[2024-03-08] MEDS: Jevity 1.5 1,000 ML 60 ML GT (12:20)
--- NOTE | 2024-03-08 12:33 | SP.MBSS_ITS ---
Modified Barium Swallow Patient Information Study Date: 03/08/24 Study Time: 13:30 Direct Billable Minutes: 135 Total Minutes procedure & reportin Diagnosis: C32.9 SCC of Larynx Referring Physician: Nadya Ferrara Reason for Referral: Objectively assess swallow function, assess risk for aspiration, and determine recommendations for least restrictive diet textures and compensatory strategies to improve safety of swallow. Medical History: PMH: Herpes zoster, Depression, Former smoker, On home oxygen therapy, A fib, Cardiomyopathy, Alcoholism, Laryngeal squamous cell carcinoma, Esophageal mass, HLD, Chronic HFrEF, Laryngeal mass, Debility, Wears dentures/glasses, Difficulty swallowing, Smoker, High cholesterol, COPD, History of CHF, Agoraphobia, CHF exacerbation, Medical non-compliance, Alcohol abuse, Tobacco abuse, Acute hypoxic respiratory failure. Surgical Hx: History of tracheostomy, History of laryngoscopy, History of surgery. 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 From 11/25/2023 ? 01/08/2024 he received definitive chemoradiation. Dysphagia Hx: Pt is familiar to this department. The patient was hospitalized from 10/08/23-10/15/23 with recurrent stridor and dysphagia. During stay, [facility] pleted a FEES, which revealed an excrescence on the R vocal fold and recommended Easy to Chew textures / Thin liquids with ENT referral. ENT, Dr. Coleman, planned for direct laryngoscopy with biopsy secondary to the laryngeal mass. Ultimately, the patient was taken to the OR on the afternoon of 10/19/23 for his biopsy. After biopsy, his respiratory status decompensated and he required emergent tracheotomy. He was transferred to ICU for subsequent management. MBSS 10/21/23 revealed mild-moderate oropharyngeal dysphagia and recommended Soft and Bite Size Textures (IDDSI Level 6) / Thin Liquidsw/ the following strategies: Oral care & 10 ice chips prior to meal, Small Bites, Small Sips, Slow Rate, Sitting upright and Remain sitting upright for 30 minutes after PO intake; Supervision: 1:1 Close Supervision (Staff supervision - Monitor SpO2 at meals). He was discharged to TCU w/ ST following during stay 10/24/2023-11/30/2023 for ongoing assessment of diet tolerance, trials for diet advancement, training in strategies to decrease risk for aspiration, implementation of PMSV, and education re: toxicities of chemoradiation that impact swallow function and their management. He advanced to Regular textures / Thin liquids during stay. He was not able to tolerate PMSV at discharge due to excessive secretions. He was then discharged to HALF-WAY. Pt now presents to [facility] ED 03/07/2024 w/ hypoxia. TARE MAN requested MBSS during acute stay to trial for potential diet advancement. Pt has been consuming limited oral intake of thin liquids (~16oz of water per day per patient report) w/ use of PEG to meet primary nutrition and hydration needs. He trialed puree textures 1X after chemoradiation treatment had been completed, but he was fearful to try it again. He continues to forego use of PMSV due to S/p chemoradiation, he continues w/ mild xerostomia, mild dysgeusia, moderate hypogeusia, mild odynophagia (2/10). TARE MAN recommended MBSS during this acute stay to reassess swallow function and determine appropriateness for diet advancement. Current Diet Ordered: Puree textures / Thin liquids - PEG Dentition: Upper Dentures and Lower Dentures Mental Status: WNL Respiratory Status: Oxygenating on 4L/M nasal cannula (8L/M via trach collar) Penetration-Aspiration Scale Penetration-Aspiration Scale: OBJECTIVE ASSESSMENT OF SWALLOW FUNCTION (QUANTITATIVE ? PER TRIAL): PENETRATION / ASPIRATION SCALE (GARCIA): 1 = does not enter airway 2 = enters airway/above vocal folds/ejected 3 = enters airway/above vocal folds/not ejected 4 = enters airway/contacts vocal folds/ejected 5 = enters airway/contacts vocal folds/not ejected 6 = enters airway/below vocal folds/ejected 7 = enters airway/below vocal folds/not ejected despite effort 8 = enters airway/below vocal folds/no effort VIDEOFLOROSCOPIC SCALE SCORE (GARCIA): Grade I = aspiration of material that has penetrated into the laryngeal vestibule, intact cough reflex Grade II = aspiration < 10 % of the bolus, intact cough reflex Grade III = aspiration of < 10 % of the bolus, reduced cough reflex or aspiration of > 10 % of the bolus, intact cough reflex Grade IV = aspiration of > 10 % of the bolus, reduced cough reflex Penetration-Aspiration Scale Score Thin Liquid via teaspoon: Result: 1= does not enter airway Thin Liquid via teaspoon Trial 2: Result: 1= does not enter airway Thin Liquid via large single sip: cup: Result: 5= enters airways/contacts vocal folds/not ejected [place] Thick Liquid via small single sip: cup: Result: 5= enters airways/contacts vocal folds/not ejected Comment: SILENT post prandial aspiration of previous trial Cued cough and re-swallow after the trial = somewhat effective; however, did not clear aspirated contrast. Honey Thick Liquid via teaspoon: Result: 1= does not enter airway Comment: SILENT post prandial aspiration of previous trial Pudding via teaspoon: Result: 3= enters airways/above vocal folds/not ejected Pudding via teaspoon Effortful swallow: Result: 1= does not enter airway 1/4 Cookie Effortful swallow: Result: 1= does not enter airway Thin Liquid via single sip: straw: Result: 5= enters airways/contacts vocal folds/not ejected Comment: Cued cough and re-swallow = not effective Thin Liquid via teaspoon Trial 3: Result: 1= does not enter airway Thin Liquid via small single sip: cup Effortful swallow: Result: 3= enters airways/above vocal folds/not ejected Comment: SILENT post prandial aspiration of residues of previous trials remaining in the laryngeal vestibule Oral Phase Labial Seal: Escape progressing to mid-chin (partially d/t TARE MAN feeding pt via spoon) Tongue Control During Bolus Hold: Posterior escape of less than half of bolus Bolus Preparation/Mastication: Slow prolonged chewing/mashing with complete recollection Bolus Transport/Lingual Motion: Delayed initiation of tongue motion Oral Residue: Residue collection on oral structures Pharyngeal Phase Initiation of Pharyngeal Swallow: Bolus head at posterior laryngeal surgace of epiglottis Soft Palate Elevation: Trace column of contrast/air between soft palate and pharyngeal wall Laryngeal Elevation: Partial superior movement thyroid cart/partial apprx aryt- epig petiole Anterior Hyoid Excursion: Partial anterior movement Epiglottic Movement: Complete inversion Laryngeal Vestibule Closure at Height of Swallow: Incomplete; narrow column of air/contrast in laryngeal vestibule Pharyngeal Stripping Wave: Present - diminished Pharyngoesophageal Segment Opening: Parital distension and partial duration; parital obstruction of flow (trace retention in UES) Tongue Base Retraction: Wide column of contrast between tongue base & post. pharyngeal wall Pharyngeal Residue: Collection of residue within or on pharyngeal structures Diagnosis/Impression Diagnosis: Moderate oropharyngeal dysphagia R13.12 Impression: The oral phase is primarily marked by... -Decreased bolus control w/ premature posterior loss of <1/2 thin liquids to posterior surface of the epiglottis prior to swallow onset. -Prolonged, but complete mastication of 1/4 cookie. -Mild oral residues. The pharyngeal phase primarily marked by... -Decreased tongue base retraction, pharyngeal stripping wave, and UES opening/duration requiring double swallows to clear ~50% of bolus from pharynx, a third swallow to clear the remainder. He could clear majority of bolus from the pharynx w/ double, effortful swallow. -Decreased airway closure during the swallow due to partial anterior hyoid excursion and laryngeal elevation. -SILENT post prandial aspiration of thin and mildly/nectar thickened liquids. Possible silent aspiration of trace residues of purees in the laryngeal vestibule at the end of the study. Laryngeal penetration of thin liquids via cup, straw and mildly/nectar thick liquids via cup to the vocal folds w/o full ejection. The patient is at risk for worsening dysphagia and aspiration risk s/p chemoradiation for SCC of larynx and would greatly benefit from consistent oral intake of LRD diet textures w/ use of aspiration precautions. Will recommend direct supervision to ensure use of strategies at meals and to encourage pt to increase oral intake. Please assist patient in oral care before and after oral intake to decrease risk for aspiration related illness. TARE MAN is planning to trial soft solids w/ patient at bedside 03/09/2024 to consider patient for further diet advancement. Pt would also greatly benefit from placement of PMSV to decrease aspiration risk and promote improved communicative abilities - TARE MAN is ok to trial w/ patient per discussion w/ radiation oncologist, Dr. Priest. TARE MAN will also clear w/ hospitalist. Recommendations Diet: Puree Textures and Thin Liquids Comment: Oral care before and after oral intake; PEG tube present to meet nutrition/hydration needs as the patient is currently consuming very limited oral intake. Please encourage increased oral intake at meals. Compensatory Strategies: Small Bites, Liquid by Teaspoon Only, Slow Rate, Multiple Swallows (2 swallows each sip, 3 effortful swallows each bite), Sitting upright and Remain sitting upright for 30 minutes after PO intake Supervision: 1:1 Close Supervision (For meals) Recommend Repeat Modified Barium Swallow: Yes (2-4 weeks after implementation of oropharyngeal exercise program to consider advancement of sip size of thin liquids) Need for Skilled Speech Therapy Services: Yes Comment: Will initiate dysphagia POC during acute stay for 5-7X/week. Goals for POC are as follows: 1. (LTG) The patient will consume least restrictive diet textures without overt s/s of aspiration with minimal verbal cues to decrease risk for aspiration. 2. (STG) The patient will demonstrate use or verbalize awareness of compensatory strategies with minimal verbal cues to decrease risk for aspiration. 3. (STG) The patient will complete his own oral care before and after oral intake independently to decrease risk for aspiration related illness. 4. (STG) The patient will complete an oropharyngeal exercise program X10-15 reps, 3-5X daily with minimal verbal cues to improve strength, ROM, and coordination of swallowing mechanism (Effortful, Fartun, Yesenia, Jaw stretch). ST will be recommended at discharge. Please consider patient for [place] Free Water Protocol at next level of care if deemed clinically appropriate by treating TARE MAN. Education Completed: 1. Described result of evaluation., 2. Pt understands evaluation & agrees with goals and treatment plan. and 7. Pt requires further education on strategies & risks. Status Active ST Patient: Active Contact Information [facility] Speech Therapy:: Morelia Freire M.A. [facility]? Speech-Language Pathologist?? [facility] [address] [place] [address]? [email or web address]?? [phone]
--- NOTE | 2024-03-08 13:27 | PCM.PN.HOSP ---
Reason for Visit Reason for Visit: Diagnoses Chronic obstructive pulmonary disease with (acute) exacerbation (03/07/24) Subjective Subjective Patient feels his secretions are similar to usual but certainly are thick, still short of breath but feels this is slowly improving Objective Data Objective Data Vital Signs: Vital Signs Temp Pulse Resp BP Pulse Ox O2 Del Method O2 Flow Rate 97.8 F 95 16 110/70 97 Trach Collar 5 03/08/24 10:00 03/08/24 10:00 03/08/24 10:00 03/08/24 10:00 03/08/24 10:00 03/08/24 10:00 03/08/24 07:01 FiO2 28 03/08/24 10:00 Oxygen Flow Rate (L/min) 5 Oxygen Delivery Method Trach Collar Weight: 54.1 kg Body Mass Index (BMI) 17.6 Intake & Output: Intake and Output for Last 24 Hours 03/06/24 03/07/24 03/08/24 23:59 23:59 23:59 Intake Total 755 / 755 1295 / 1295 Output Total 500 / 500 Balance 255 / 255 1295 / 1295 Lab / Micro Data 03/08/24 05:52 03/08/24 05:52 Labs: Laboratory Results - last 24 hr 03/07/24 13:22: Troponin I High Sens 6, B-Natriuretic Peptide 21.3 03/07/24 15:50: Troponin I High Sens 6 03/08/24 05:52: WBC 12.8 H, RBC 3.09 L, Hgb 9.4 L, Hct 29.0 L, MCV 93.9, MCH 30.4, MCHC 32.4, RDW Std Deviation 61.1 H, RDW Coeff of Elidia 17.8 H, Plt Count 355, MPV 9.0, Immature Gran % (Auto) 0.500, Neut % (Auto) 93.6 H, Lymph % (Auto) 3.1 L, [place]ah % (Auto) 2.7, Eos % (Auto) 0.0, Baso % (Auto) 0.1, Absolute Neuts (auto) 12.0 H, Absolute Lymphs (auto) 0.40 L, Nucleated RBC % 0, Sodium 133 L, Potassium 3.6, Chloride 98, Carbon Dioxide 25.0, Anion Gap 10, BUN 17, Creatinine 0.60 L, Estim Creat Clear Calc 66.69, Est GFR (MDRD) Af Amer 171, Est GFR (MDRD) Non-Af 141, BUN/Creatinine Ratio 28.1 H, Glucose 171 H, Calcium 8.9 Micro: Microbiology 03/07/24 13:22 Mucosa - Nose SARS-CoV-2, Influenza & RSV (PCR) - Final Radiography Diagnostic Testing: Radiology Impression Chest CTA 03/07/24 12:16 IMPRESSION: No evidence of pulmonary embolism. Bronchial wall thickening with mucous/secretions in branches of the left mainstem bronchus extending to the left lower lobe as well as central portion of the left upper lobe. Mild increased markings at the left lung base suggestive of scarring and/or atelectasis. Minimal pericardial thickening. Electronically Signed: Patrice Lehman MD at 14:20 EDT , Physical Exam Narrative General: Alert, no apparent distress HEENT: Atraumatic, normocephalic Eyes: Anicteric, normal conjunctiva, extraocular movements grossly intact Neck: Supple, trach in place with thick secretions Respiratory: Diminished bilaterally, slight increased respiratory effort Cardiovascular: Regular rate GI: Soft, nontender, nondistended Extremities: No edema Musculoskeletal: Moving all extremities Neuro: No overt focal neurological deficits Skin: Some scabbing around PEG tube Psych: Cooperative Assessment & Plan Assessment/Plan (1) COPD exacerbation: PLAN: Plan #Acute exacerbation of chronic COPD -Admit to floor, continuous O2 monitoring -Wean O2 as tolerated, can was consider pulmonology consult given mucous noted on CT scan but patient seems to be improving -Chest CT with no PE, bronchial wall thickening with mucus/secretion and branches on the left side COVID [], obtain respiratory panel, sputum culture if able -O2 in place, wean as tolerated -IV methylprednisone -Scheduled DuoNebs -Albuteron prn -Antibiotics: Azithromycin -Incentive spirometer -Mucinex # 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 Frost -Most recent oncology note reviewed -Home pain medication continued -Continue tube feeds -Speech also consulted # A-fib -Continue Coreg and Eliquis # Chronic heart failure with reduced ejection fraction -Patient with EF of 40% 10/09/2023 -No evidence of fluid overload at this time -Continue home Coreg #mood d/o NOS -Continue wellbutrin #DVT ppx: On Eliquis Nadya Ferrara MD Time spent in the patient's overall evaluation,decision-making process, review of diagnostic data, adjustment of management, discussion with other providers, nursing nursing and ancillary staff involved in patient's care documentation, 36 Minutes Charges/Coding Visit Charges Inpatient E&M: 51902 Subs Hosp L2
--- NOTE | 2024-03-08 13:32 | CHAPLAIN ---
Type of Pastoral Visit _x__ Initial Visit ___ Follow-up Visit ___ On-call Visit ___ General Patient Visit ___ Spiritual Assessment ___ Family Conference ___ Bereavement ___ Rapid Response ___ Code Blue ___ Other (describe below) Pastoral Care Referral From _x__ Patient ___ Family ___ Nurse ___ Physician ___ Amusement Or Recreation Card Checker ___ [place] Laborer ___ Other (describe below) Sacrament/Intervention _x__ Active listening ___ Anointing ___ Protestant ___ Bereavement ___ Communion ___ Diana exploration ___ ___ Life review _x__ Prayer ___ Reconciliation ___ Sacrament of Sick _x__ Supportive presence ___ Wedding ___ Other (describe below) Pastoral Comments patient has been seen before in previous admissions; pt has been in an ECF which he is not very happy about but has accepted it for now; pt speaks of frustration at having to keep coming back to the hospital; pt has some difficulty talking but is calm at this time; pt welcomes presence and prayer
[2024-03-08] MEDS: Atorvastatin Calcium 40 MG Tablet GT (20:36)
--- NOTE | 2024-03-08 21:00 | NURSING ---
Report called up to Aimee in [facility], all belongings went with pt, family notified of transfer
[2024-03-09 01:05] VITALS: PULSE 86; RESP 22; O2SAT 94
[2024-03-09] MEDS: Ipratropium/Albuterol Sulfate 3 ML AMPUL.NEB INHALATION ×3 (01:05→13:03)
[2024-03-09] MEDS: Acetylcysteine 800 MG/4 ML VIAL.NEB. INHALATION ×3 (01:05→13:03)
[2024-03-09 04:06] VITALS: BP 110/84; PULSE 85; RESP 16; TEMP 36.7; O2SAT 96
[2024-03-09] MEDS: 0.9% Saline Lock 10 ML Syringe IV ×3 (06:12→17:33)
[2024-03-09 07:03] LABS: Absolute Lymphocyte Count 0.48 X10^3/uL (0.83-4.51); Basophil# 0.02 X10^3/uL; Basophil% 0.1 % (0-1); Hematocrit 28.4 % (40-54); Hemoglobin 9.1 g/dL (13.0-16.5); Lymphocyte # 0.48 X10^3/ul (0.83-4.51); Lymphocyte % 2.4 % (19-41); Mean Corpuscular Volume 93.7 fL (80-94); Mean Platelet Vol. 9.2 fl (6.2-12.0); Monocyte# 1.03 X10^3/uL; Monocyte% 5.2 % (0-10); NRBC Flagged by Analyzer 0 % (0-5); Neutrophil # 17.99 X10^3/uL (2.7-7.7); Neutrophil % 91.6 % (47-70); POSITIVE DIFFERENTIAL YES; Platelet Count 367 K/mm3 (150-450); RBC Distribution Width SD 62.3 fl (35.1-43.9); Red Blood Count 3.03 M/mm3 (4.6-6.2); White Blood Count 19.7 K/mm3 (4.4-11.0)
[2024-03-09 07:12] VITALS: PULSE 84; RESP 18; O2SAT 94
[2024-03-09 07:18] LABS: Anion Gap 5 (5-15); BUN 16 mg/dL (7-18); BUN/Creat Ratio 36.1 RATIO (10-20); Calcium,Total 9.1 mg/dL (8.5-10.1); Chloride 99 mmol/L (98-107); Creatinine, Serum 0.44 mg/dL (0.70-1.30); EST Glomerular Filtration Rate 202 mL/min (>60); Est Glom Filt Rate - Afr Amer 244 mL/min (>60); Estimated Creatinine Clearance 66.69 ml/min; Glucose 142 mg/dL (74-106); Potassium 3.7 mmol/L (3.5-5.1); Sodium Level 132 mmol/L (136-145)
[2024-03-09 08:12] VITALS: BP 114/73; PULSE 96; RESP 15; TEMP 36.6; O2SAT 99
--- NOTE | 2024-03-09 08:14 | CASEMGMT ---
Social Work- Pt has directives naming olaf Miles, as primary agent and olaf Lindsey, as alternate agent. MAHENDRA Oliveira
--- NOTE | 2024-03-09 10:05 | NURSING ---
spoke with [employer] for clarification per Md request regarding oxygen. Per report pt wears 2L oxygen at ECF, per CPS the 8L trach collar pt is receiving 28% oxygen/fio2 which is equivalent to 2L he wears at baseline. Dr. Ferrara notified.
[2024-03-09] MEDS: APIXABAN 5 MG TABLET GT (10:11)
[2024-03-09] MEDS: guaiFENesin 10 ML UDC (200MG/10ML) GT ×2 (10:12→17:24)
[2024-03-09] MEDS: Carvedilol 3.125 MG TABLET GT (10:12)
[2024-03-09] MEDS: Potassium Chloride Oral Tablet 20 MEQ GT (10:12)
[2024-03-09] MEDS: Jevity 1.5 1,000 ML 50 ML GT (10:13)
[2024-03-09] MEDS: Thiamine Hydrochloride 100 MG Tablet GT (10:13)
[2024-03-09] MEDS: Senna/Docusate Sodium 1 Tablet 2 TABLET GT (10:13)
[2024-03-09] MEDS: Aspirin 81 MG TAB.CHEW GT (10:13)
[2024-03-09] MEDS: buPROPion 75 MG Tablet GT (10:16)
[2024-03-09 13:08] VITALS: PULSE 90; RESP 18
--- NOTE | 2024-03-09 14:53 | TREXTCAR_ITS ---
Diet Diet Order/Speech Therapy: 03/07/24 17:11 Diet: Cardiac - Heart Healthy Food consistency:: Soft & Bite Sized Liquid Consistency:: Regular/Thin Diet Comments: Direct sup at meals, Extra sauce/gravy, SMALL cup sips, multiple swallows Routine Orders/Code Status Suppository Type: Dulcolax 10mg Suppository Frequency: Daily PRN O2 Liters per Minute: 2 O2 Frequency: Continuous Code Status: Full Code Therapies Speech Therapy: Eval and Treat Problem/Diagnosis (1) COPD exacerbation: Status: Resolved Code(s): J44.1 - Chronic obstructive pulmonary disease with (acute) exacerbation Plan #Acute exacerbation of chronic COPD # 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 At baseline uses 2 L of O2 but on presentation required [address] chest with no PE but had some bronchial wall thickening with mucous/secretions on left side. Started on azithromycin, scheduled nebulizers, IV Methylpred and was admitted. White blood cell count initially 13.2, trended down and then increased which suspected secondary to steroid administration, Patient afebrile and otherwise vitally stable. Patient improved quickly on this regimen with improvement in shortness of breath and on 03/09/2024 he was on his equivalent of home O2 and he felt better overall. ( it was verified with respiratory therapy, oxygen flow rate was 8 but it 25% FiO2 through his trach collar which is equivalent to his home oxygen requirement- saturating 99%.) patient's sputum was growing Staph aureus so antibiotics switched to doxycycline and he will be discharged on 7 days of this as well as 5 days of prednisone burst. during his hospitalization he was also working with speech therapy and would benefit from continuing to do so after discharge. Discharge instructions as follows: - you will be discharged on 7 days of doxycycline due to growing staph in your sputum -Please follow-up with Pulmonology upon discharge. Please call their office to schedule hospital follow-up appointment upon discharge. - you will be discharged on 5 days of prednisone for your COPD exacerbation - continue nebulizers and would continue guaifenesin as scheduled through feeding tube for next 5 to 7 days Allergies/Procedures Done in Hospital Allergies No Known Allergies Allergy (Verified 03/07/24 10:50) Type of Care/Length of Stay Estimated LOS: More Than 30 Days Type of Care Needed: Intermediate Rehab Potential: Fair Prognosis: Fair Additional Orders/Day of Discharge Day of Discharge: 03/09/24 Dietary and Speech Recommendations Dietitian Recommendations/Changes: Continue regular- pureed diet for pleasure. Enteral nutrition support to meet 100% of estimated nutrition needs, will adjust Jevity 1.5 to goal rate @ 50ml/hr with 110ml free water flushes every 4 hours to provide 1800 kcals, 76g protein, and 1572ml free water. Will monitor weight, as available. Reviewed and approved by Stacy Garcia MS, RD, LD. Discharge Plan Admission Admit Date/Time: 03/07/24 15:15 Primary Reason for Your Visit: Shortness of breath Attending Provider: Nadya Ferrara Primary Care Provider: Juan Rai Consulting Providers: Baldemar Salguero Instructions Patient Instructions: COPD Meds Additional Instructions / Restrictions: DISCHARGE INSTRUCTIONS PLEASE READ *Please take this with you to your next doctors appointment* - you will be discharged on 7 days of doxycycline due to growing staph in your sputum -Please follow-up with Pulmonology upon discharge. Please call their office to schedule hospital follow-up appointment upon discharge. - you will be discharged on 5 days of prednisone for your COPD exacerbation - continue nebulizers and would continue guaifenesin as scheduled through feeding tube for next 5 to 7 days -Please call your primary care provider's office upon discharge to schedule a hospital follow up within 1 week. -For any concerning signs or symptoms please call 911 or proceed to the nearest emergency department Discharge Orders/Prescriptions Prescriptions: New doxycycline monohydrate 100 mg Capsule 100 mg PO BID 7 Days Qty: 14 0RF prednisone 20 mg tablet 40 mg PO DAILY 5 Days Qty: 10 0RF Continued ipratropium-albuterol 0.5 mg-3 mg(2.5 mg base)/3 mL solution for nebulization 3 ml inhalation TID Qty: 180 11RF morphine 10 mg/5 mL solution 10 mg PO Q6H PRN (Reason: pain) atorvastatin 40 mg Tablet 40 mg PO QHS Qty: 30 2RF Eliquis 5 mg tablet 5 mg PO BID 30 Days Qty: 60 0RF guaifenesin [Adult Tussin Chest Congestion] 100 mg/5 mL liquid 600 mg PO Q6H PRN (Reason: congestion) 5 Days Qty: 500 11RF sennosides-docusate sodium [Stool Softener-Stimulant Laxat] 8.6-50 mg Tablet 2 tab PO BID Qty: 0 0RF thiamine HCl (vitamin B1) [Vitamin B-1] 100 mg Tablet 100 mg PO DAILYCM Qty: 0 0RF aspirin 81 mg Tablet,Delayed Release (Dr/Ec) 81 mg PO BREAKFAST Qty: 0 0RF carvedilol 3.125 mg Tablet 3.125 mg PO BID Qty: 0 0RF potassium chloride 20 mEq Tablet,Er Particles/Crystals 20 meq PO DAILYCM Qty: 0 0RF bupropion HCl 75 mg Tablet 75 mg PO BID Qty: 0 0RF nicotine 14 mg/24 hr patch 24 hour 1 patch transdermal DAILY IV with Additives Jevity 1.5 1000 ML 80 mls/hr G-tube Ordered By: Mickey Palacios MD Last Taken: Unknown Referrals / Follow Up: Jasper Montelongo DO [Med Staff - Active Staff] - Juan Rai DO [Primary Care Provider] - Within 1 Week Disposition Disposition (needs filled in before D/C Order can be placed): [facility]
[2024-03-09 15:01] VITALS: BP 107/72; PULSE 83; RESP 17; TEMP 36.5; O2SAT 97
--- NOTE | 2024-03-09 15:14 | PCM.DC.SUM ---
Providers Date of Admission: 03/07/24 Date of Discharge: 03/09/24 Primary Care Physician: Dr. 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 # A-fib # Chronic heart failure with reduced ejection fraction #mood d/o NOS Medications at Discharge Home Medications atorvastatin 40 mg tablet 40 mg PO QHS Cholesterol #30 tabs 10/15/23 aspirin 81 mg tablet,delayed release 81 mg PO BREAKFAST #0 tabs 11/26/23 bupropion HCl 75 mg tablet 75 mg PO BID #0 tabs 11/26/23 carvedilol 3.125 mg tablet 3.125 mg PO BID #0 tabs 11/26/23 potassium chloride 20 mEq tablet,extended release(part/cryst) 20 meq PO DAILYCM #0 tabs 11/26/23 sennosides 8.6 mg-docusate sodium 50 mg tablet (Stool Softener-Stimulant Laxative) 2 tab PO BID #0 tabs 11/26/23 thiamine HCl (vitamin B1) 100 mg tablet (Vitamin B-1) 100 mg PO DAILYCM replacement #0 tabs 11/26/23 nicotine 14 mg/24 hr daily transdermal patch 1 patch transdermal DAILY 12/29/23 IV with Additives 80 mls/hr G-tube 01/03/24 ipratropium 0.5 mg-albuterol 3 mg (2.5 mg base)/3 mL nebulization soln 3 ml inhalation TID #180 mL 02/02/24 morphine 10 mg/5 mL oral solution 10 mg PO Q6H PRN pain 02/08/24 apixaban 5 mg tablet (Eliquis) 5 mg PO BID 30 days #60 tabs 02/26/24 doxycycline monohydrate 100 mg capsule 100 mg PO BID 7 days #14 caps 03/09/24 guaifenesin 100 mg/5 mL oral liquid (Adult Tussin Chest Congestion) 600 mg (30 mL) PO Q6H PRN congestion 5 days #500 mL 03/09/24 prednisone 20 mg tablet 40 mg (2 x 20 mg) PO DAILY 5 days #10 tabs 10/09/24 Hospital Course Summary of Care Provided Minutes Spent on Discharge: 31 Hospital Course: 69-year-old male history of chronic COPD on 2 L O2, tracheal cancer status post tracheostomy and chemoradiation and PEG tube, chronic heart failure with reduced ejection fraction who presented [facility] ED 03/07/2024 with increased shortness of breath. At baseline uses 2 L of O2 but on presentation required [address] chest with no PE but had some bronchial wall thickening with mucous/secretions on left side. Started on azithromycin, scheduled nebulizers, IV Methylpred and was admitted. White blood cell count initially 13.2, trended down and then increased which suspected secondary to steroid administration, Patient afebrile and otherwise vitally stable. Patient improved quickly on this regimen with improvement in shortness of breath and on 03/09/2024 he was on his equivalent of home O2 and he felt better overall. ( it was verified with respiratory therapy, oxygen flow rate was 8 but it 25% FiO2 through his trach collar which is equivalent to his home oxygen requirement- saturating 99%.) patient's sputum was growing Staph aureus so antibiotics switched to doxycycline and he will be discharged on 7 days of this as well as 5 days of prednisone burst. during his hospitalization he was also working with speech therapy and would benefit from continuing to do so after discharge. Discharge instructions as follows: - you will be discharged on 7 days of doxycycline due to growing staph in your sputum -Please follow-up with Pulmonology upon discharge. Please call their office to schedule hospital follow-up appointment upon discharge. - you will be discharged on 5 days of prednisone for your COPD exacerbation - continue nebulizers and would continue guaifenesin as scheduled through feeding tube for next 5 to 7 days Physical Exam Narrative General: Alert, no apparent distress HEENT: Atraumatic, normocephalic Eyes: Anicteric, normal conjunctiva, extraocular movements grossly intact Neck: Supple, trach in place with thick secretions Respiratory: Improved respiratory effort, improved airflow, some transmitted upper airway sounds Cardiovascular: Regular rate GI: Soft, nontender, nondistended Extremities: No edema Musculoskeletal: Moving all extremities Neuro: No overt focal neurological deficits Skin: No changes noted Psych: Cooperative Medical Records Data Medical Nutrition Assessment Dietitian: Malnutrition Criteria Met Start: 03/08/24 15:34 Freq: Status: Active Protocol: Document 03/08/24 15:34 SB (Rec: 03/08/24 15:35 SB [id number]) Nutrition Malnutrition Evidence of Malnutrition Exists Yes Malnutrition (severe): Chronic Evidenced By Suboptimal Energy Intake ( Moderate),Weight Loss (Severe) ,Physical Changes (Severe) Clinical Problem Chronic Disease or Condition Related Malnutrition Etiology severe related to inadequate oral/energy intake and swallowing difficulty Signs/Symptoms as evidenced by 14% unintentional weight loss x 4 months, severe wasting in clavicle and temporal regions, limited PO intake, and BMI 17 .6kg/m2. Status Active Problem Recommendation Dietitian Recommendations/Changes Continue regular- pureed diet for pleasure. Enteral nutrition support to meet 100% of estimated nutrition needs, will adjust Jevity 1.5 to goal rate @ 50ml /hr with 110ml free water flushes every 4 hours to provide 1800 kcals, 76g protein, and 1572ml free water . Will monitor weight, as available. Reviewed and approved by Stacy Garcia, MS, RD, LD. Weight / BMI Weight Weight: 54.1 kg Body Mass Index (BMI) 17.6 ABG / Lab / Microbiology Data 03/09/24 06:22 03/09/24 06:22 Laboratory: Laboratory Results - last 24 hr 03/09/24 06:22: WBC 19.7 H, RBC 3.03 L, Hgb 9.1 L, Hct 28.4 L, MCV 93.7, MCH 30.0, MCHC 32.0, RDW Std Deviation 62.3 H, RDW Coeff of Elidia 18.0 H, Plt Count 367, MPV 9.2, Immature Gran % (Auto) 0.700, Neut % (Auto) 91.6 H, Lymph % (Auto) 2.4 L, Callahan % (Auto) 5.2, Eos % (Auto) 0.0, Baso % (Auto) 0.1, Absolute Neuts (auto) 18.0 H, Absolute Lymphs (auto) 0.48 L, Nucleated RBC % 0, Sodium 132 L, Potassium 3.7, Chloride 99, Carbon Dioxide 29.0, Anion Gap 5, BUN 16, Creatinine 0.44 L, Estim Creat Clear Calc 66.69, Est GFR (MDRD) Af Amer 244, Est GFR (MDRD) Non-Af 202, BUN/Creatinine Ratio 36.1 H, Glucose 142 H, Calcium 9.1 Microbiology: Microbiology 03/08/24 11:00 Sputum, Tracheal Aspirate Gram Stain - Final 03/08/24 11:00 Sputum, Tracheal Aspirate Respiratory Culture - Preliminary Staphylococcus aureus 03/08/24 11:45 Mucosa - Nose Respiratory Panel (PCR) - Final 03/07/24 13:22 Mucosa - Nose SARS-CoV-2, Influenza & RSV (PCR) - Final Meaningful Use Info Meaningful Use Meaningful Use Diagnoses (Choose all that apply): None applicable Ischemic Stroke Statin Dosing Therapy Reference: STATIN DOSE THERAPY REFERENCE: * Patients > 75 years receive moderate or high dose statin therapy. * Patients 75 years or YOUNGER should receive HIGH intensity statin dose unless contraindicated. You will be required to document reason for non-treatment if statin daily dose does not meet guidelines. HIGH DOSE STATIN THERAPY DAILY Atorvastatin > than or = to 40 mg Rosuvastatin > than or = to 20 mg Amlodipine + Atorvastatin > than or = to 2.5/40 mg Ezetimibe + Simvastatin 10/80 mg Simvastatin 80mg Discharge Plan Admission Admit Date/Time: 03/07/24 15:15 Primary Reason for Your Visit: Shortness of breath Attending Provider: Nadya Ferrara Primary Care Provider: Juan Rai Consulting Providers: Baldemar Salguero Instructions Patient Instructions: COPD Meds Additional Instructions / Restrictions: DISCHARGE INSTRUCTIONS PLEASE READ *Please take this with you to your next doctors appointment* - you will be discharged on 7 days of doxycycline due to growing staph in your sputum -Please follow-up with Pulmonology upon discharge. Please call their office to schedule hospital follow-up appointment upon discharge. - you will be discharged on 5 days of prednisone for your COPD exacerbation - continue nebulizers and would continue guaifenesin as scheduled through feeding tube for next 5 to 7 days -Please call your primary care provider's office upon discharge to schedule a hospital follow up within 1 week. -For any concerning signs or symptoms please call 911 or proceed to the nearest emergency department Discharge Orders/Prescriptions Prescriptions: New doxycycline monohydrate 100 mg Capsule 100 mg PO BID 7 Days Qty: 14 0RF prednisone 20 mg tablet 40 mg PO DAILY 5 Days Qty: 10 0RF Continued ipratropium-albuterol 0.5 mg-3 mg(2.5 mg base)/3 mL solution for nebulization 3 ml inhalation TID Qty: 180 11RF morphine 10 mg/5 mL solution 10 mg PO Q6H PRN (Reason: pain) atorvastatin 40 mg Tablet 40 mg PO QHS Qty: 30 2RF Eliquis 5 mg tablet 5 mg PO BID 30 Days Qty: 60 0RF guaifenesin [Adult Tussin Chest Congestion] 100 mg/5 mL liquid 600 mg PO Q6H PRN (Reason: congestion) 5 Days Qty: 500 11RF sennosides-docusate sodium [Stool Softener-Stimulant Laxat] 8.6-50 mg Tablet 2 tab PO BID Qty: 0 0RF thiamine HCl (vitamin B1) [Vitamin B-1] 100 mg Tablet 100 mg PO DAILYCM Qty: 0 0RF aspirin 81 mg Tablet,Delayed Release (Dr/Ec) 81 mg PO BREAKFAST Qty: 0 0RF carvedilol 3.125 mg Tablet 3.125 mg PO BID Qty: 0 0RF potassium chloride 20 mEq Tablet,Er Particles/Crystals 20 meq PO DAILYCM Qty: 0 0RF bupropion HCl 75 mg Tablet 75 mg PO BID Qty: 0 0RF nicotine 14 mg/24 hr patch 24 hour 1 patch transdermal DAILY IV with Additives Jevity 1.5 1000 ML 80 mls/hr G-tube Ordered By: Mickey Palacios MD Last Taken: Unknown Referrals / Follow Up: Jasper Montelongo DO [Med Staff - Active Staff] - Juan Rai DO [Primary Care Provider] - Within 1 Week Disposition Disposition (needs filled in before D/C Order can be placed): [facility] Charges/Coding Visit Charges Inpatient E&M: 54559 Disch Hosp >30min
--- NOTE | 2024-03-09 15:45 | PHA.DC_ITS ---
Pharmacy [facility] Reconciliation Pharmacy Service has performed discharge medication reconciliation for this patient. The patient's discharge medication list was reviewed for discrepancies and discrepancies were resolved. Medications at Discharge Home Medications atorvastatin 40 mg tablet 40 mg PO QHS Cholesterol #30 tabs 10/15/23 aspirin 81 mg tablet,delayed release 81 mg PO BREAKFAST #0 tabs 11/26/23 bupropion HCl 75 mg tablet 75 mg PO BID #0 tabs 11/26/23 carvedilol 3.125 mg tablet 3.125 mg PO BID #0 tabs 11/26/23 potassium chloride 20 mEq tablet,extended release(part/cryst) 20 meq PO DAILYCM #0 tabs 11/26/23 sennosides 8.6 mg-docusate sodium 50 mg tablet (Stool Softener-Stimulant Laxative) 2 tab PO BID #0 tabs 11/26/23 thiamine HCl (vitamin B1) 100 mg tablet (Vitamin B-1) 100 mg PO DAILYCM replacement #0 tabs 11/26/23 nicotine 14 mg/24 hr daily transdermal patch 1 patch transdermal DAILY 12/29/23 IV with Additives 80 mls/hr G-tube 01/03/24 ipratropium 0.5 mg-albuterol 3 mg (2.5 mg base)/3 mL nebulization soln 3 ml inhalation TID #180 mL 02/02/24 morphine 10 mg/5 mL oral solution 10 mg PO Q6H PRN pain 02/08/24 apixaban 5 mg tablet (Eliquis) 5 mg PO BID 30 days #60 tabs 02/26/24 doxycycline monohydrate 100 mg capsule 100 mg PO BID 7 days #14 caps 03/09/24 guaifenesin 100 mg/5 mL oral liquid (Adult Tussin Chest Congestion) 600 mg (30 mL) PO Q6H PRN congestion 5 days #500 mL 03/09/24 prednisone 20 mg tablet 40 mg (2 x 20 mg) PO DAILY 5 days #10 tabs 03/09/24
--- NOTE | 2024-03-09 15:53 | CASEMGMT ---
Social Work Physician feels pt is ready for discharge today.? Pt dtr Georgina reports that she will transport pt at 6-6:30PM. DCA and bedside nurse notified of discharge time. MAHENDRA Oliveira
--- NOTE | 2024-03-09 16:07 | CASEMGMT ---
Discharge Planning Discharge orders, signed med list, and transport time sent to [facility]. Patients daughter will transport patient mingo 6-6:30p. Alka Valderrama DC Planning Asst.
== END 2024-03-09 18:59 | disposition skilled nursing facility (03) | DRG 189 ==
LOC: ED 14:58 → PCU 16:10 → MS3 03-08 21:25
PROVIDERS: Admitting Provider Hospitalist; Emergency Provider Surgery; PCP Internal Medicine; Visit Provider Internal Medicine
DX: J96.21 Acute and chronic respiratory failure with hypoxia (principal); E43 Unspecified severe protein-calorie malnutrition; I50.22 Chronic systolic (congestive) heart failure; J44.1 Chronic obstructive pulmonary disease with (acute) exacerbation; D68.69 Other thrombophilia; Z68.1 Body mass index [BMI] 19.9 or less, adult; Z99.81 Dependence on supplemental oxygen; I48.91 Unspecified atrial fibrillation; F32.A Depression, unspecified; Z93.0 Tracheostomy status; Z93.1 Gastrostomy status; B95.61 Methicillin susceptible Staphylococcus aureus infection as the cause of diseases classified elsewhere; Z79.01 Long term (current) use of anticoagulants; Z79.82 Long term (current) use of aspirin; Z79.899 Other long term (current) drug therapy; Z85.12 Personal history of malignant neoplasm of trachea; Z92.21 Personal history of antineoplastic chemotherapy; Z92.3 Personal history of irradiation; Z87.891 Personal history of nicotine dependence
CPT/HCPCS: 36415; 36591; 71275; 74230; 80048; 80053; 83880; 84484; 85025; 87070; 87077; 87186; 87205; 87631; 87633; 92526; 92611; 93005; 94640; 97802; 99284; 99406; J7040; Q9967; A4216

== ENCOUNTER 2024-12-21 11:10 | Inpatient (IN) | payer MEDICARE, MEDICAID, SELFPAY ==
[2024-12-21] VITALS (20 sets, daily range): BP systolic 88–139; BP diastolic 16–91; PULSE 108–137; RESP 14–28; TEMP 36.2–36.8; O2SAT 90–100; BMI 21.9; BMI 21.5
--- NOTE | 2024-12-21 11:41 | CT_ITS ---
PROCEDURE: SOFT TISSUE NECK WITH CONTRAST 12/21/2024 REASON FOR EXAM: TRACH, BLEEDING TECHNIQUE: SOFT TISSUE NECK WITH CONTRAST CONTRAST: Isovue 370 VOLUME: 100 mL One or more dose reduction techniques were used (e.g., Automated exposure control, adjustment of the mA and/or kV according to patient size, use of iterative reconstruction technique). RADIATION DOSE SUMMARY: DLP: 1000 mGycm COMPARISON: Same day CTA chest, CT neck 10/12/2023. FINDINGS: Airway: Tracheostomy in appropriate positioning. Retained secretions within the central airways. Salivary glands: The bilateral salivary glands are mildly atrophic and otherwise unremarkable. Lymph nodes: Visualization is slightly limited by timing of contrast bolus. Increased size of bilaterallevel Ib lymph nodes (for example series 3, image 82 on the right). Thyroid: Unremarkable. Vasculature: No obvious focus of arterial blush or contrast extravasation. Mixed plaque of the bilateral carotid bulbs, [id number]. Mild calcific plaque of the bilateral carotid siphons. Right IJ chest port with tip overlying the right atrium. Orbits: Unremarkable at visualized levels. Paranasal sinuses and mastoids: Small right mastoid effusion. Bones: Multilevel degenerative changes of the spine. Other: See same day CTA chest for discussion of thoracic findings. CT/Soft Tissue Neck WITH Contrast IMPRESSION: 1. No obvious focus of arterial blush or contrast extravasation to suggest acti ve arterial bleed or tracheo-arterial fistula. 2. Bilateral level Ib nodes, which have increased in size since 2023, and are m ost compatible with darius metastatic disease. Correlation with patient's oncologic history recommended. Reading Location: [id number]
--- NOTE | 2024-12-21 11:41 | CT_ITS ---
EXAM: CT Angiography Chest Without and With Intravenous Contrast CLINICAL INDICATION: HEMOPTYSIS TECHNIQUE: Axial computed tomographic angiography images of the chest without and with intravenous contrast. This CT exam was performed using one or more of the following dose reduction techniques: automated exposure control, adjustment of the mA and/or kV according to patient size, and/or use of iterative reconstruction technique. MIP reconstructed images were created and reviewed. COMPARISON: No relevant prior studies available. FINDINGS: PULMONARY ARTERIES: See below. AORTA: Suboptimal exam secondary to phase of scan. Contrast is already in the aorta. No large filling defects in the main central pulmonary arteries to suggest pulmonary embolus. LUNGS AND PLEURAL SPACES: Lung emphysema. No mass. No consolidation. No significant effusion. No pneumothorax. HEART: Unremarkable. No cardiomegaly. No significant pericardial effusion. No evidence of RV dysfunction. BONES/JOINTS: No acute fracture. No dislocation. SOFT TISSUES: Unremarkable. LYMPH NODES: Unremarkable. No enlarged lymph nodes. CT/CTA Chest W/WO Contrast IMPRESSION: Suboptimal exam secondary to phase of scan. Contrast is already in the aorta. No large filling defects in the main central pulmonary arteries to suggest pulmonary embolus. Reading Location: [facility]
--- NOTE | 2024-12-21 12:15 | EKG12_ITS ---
Test Reason : TRACH BLEED Blood Pressure : */* mmHG Vent. Rate : 111 BPM Atrial Rate : 111 BPM P-R Int : 166 ms QRS Dur : 80 ms QT Int : 336 ms P-R-T Axes : 80 -31 80 degrees QTcB Int : 456 ms Sinus tachycardia Left axis deviation Pulmonary disease pattern Abnormal ECG Confirmed by CECILIA REYNOLDS, JAY ([id number]), design editor SRAVANTHI GALO ([id number]) on 12/23/2024 1:14:54 PM Referred By: Eboni Calvillo Confirmed By: JAY BROOKS MD
--- NOTE | 2024-12-21 12:15 | ED.VIS.DYS ---
HPI History of Present Illness Chief Complaint: Cough Narrative Narrative: Patient is a 69-year-old male with history of oropharyngeal cancer who underwent chemoradiation (did not have laryngectomy) but does have subsequent bilateral vocal cord paralysis and has a tracheostomy as well as a PEG tube. He presenting from nursing facility for bleeding around his tracheostomy. States he woke up at 4 AM with his bleeding. He is also having blood in his mouth. Denies any trauma. States his cannula gets replaced daily but his tracheostomy has not been replaced since December 03. Denies any recent trauma. Is on Eliquis for history of atrial fibrillation. Patient has no other complaints at this time. He communicates with writing on a white board. Denies any chest pain, trouble breathing, lightheadedness or other abnormal bleeding. [facility] Medical History Anemia Herpes zoster Depression Former smoker On home oxygen therapy Atrial fibrillation Cardiomyopathy Alcoholism Laryngeal squamous cell carcinoma Esophageal mass Hyperlipidemia Chronic HFrEF (heart failure with reduced ejection fraction) Laryngeal mass Debility Wears dentures Wears glasses Cardiology follow-up encounter Difficulty swallowing Smoker High cholesterol COPD (chronic obstructive pulmonary disease) History of CHF (congestive heart failure) Agoraphobia CHF exacerbation Medical non-compliance Alcohol abuse Tobacco abuse Acute hypoxic respiratory failure Home Medications ?Medication ?Instructions ?Recorded ?Last Taken ?Type atorvastatin 40 mg tablet 40 mg PO QHS Cholesterol #30 tabs 10/15/23 12/20/24 Rx aspirin 81 mg tablet,delayed 81 mg PO BREAKFAST #0 tabs 11/26/23 12/21/24 Rx release carvedilol 3.125 mg tablet 3.125 mg PO BID #0 tabs 11/26/23 12/21/24 Rx sennosides 8.6 mg-docusate sodium 2 tab PO BID #0 tabs 11/26/23 12/21/24 Rx 50 mg tablet (Stool Softener-Stimulant Laxative) apixaban 5 mg tablet (Eliquis) 5 mg PO BID 30 days #60 tabs 02/26/24 12/21/24 Rx guaifenesin 100 mg/5 mL oral 600 mg (30 mL) PO Q6H PRN 03/09/24 12/21/24 Rx liquid (Adult Tussin Chest congestion 5 days #500 mL Congestion) ipratropium 0.5 mg-albuterol 3 mg 3 ml inhalation TID #180 mL 05/13/24 12/21/24 Rx (2.5 mg base)/3 mL nebulization soln acetaminophen 325 mg tablet 325 mg PO Q4H PRN fever or pain 10/03/24 Unknown History bupropion HCl 75 mg tablet 150 mg PO BID 10/03/24 12/21/24 History multivitamin 1 tab PO QDAY 10/03/24 12/21/24 History ondansetron 4 mg disintegrating 4 mg PO Q6H 10/03/24 11/04/24 History tablet sodium chloride 1,000 mg soluble 1,000 mg PO QDAY maintainence 10/03/24 12/21/24 History tablet potassium chloride 20 mEq/15 mL 15 meq feeding tube DAILY 12/21/24 12/21/24 History oral liquid SUPPLEMENT thiamine HCl (vitamin B1) 100 mg 100 mg PO DAILY replacement 12/21/24 12/21/24 History tablet (Vitamin B-1) Allergy/AdvReac Type Severity Reaction Status Date / Time No Known Allergies Allergy Verified 10/03/24 10:53 Family History Father Pacemaker Surgical History History of tracheostomy History of laryngoscopy History of surgery Social History household members: none current occupational status: retired Smoking Status: Former smoker alcohol intake: current alcohol intake frequency: 3 or more drinks per day Alcohol type: beer details: 6 24 ounce cans of beer daily. substance use type: does not use caffeine: Yes Type: coffee ROS ROS ED Review of Systems ROS Unobtainable: other Details: Slightly decreased to patient unable to speak. Communicates with writing ENT ENT ED: Reports other Details: Tracheostomy in place?bleeding Cardiovascular Cardiovascular: Denies chest pain Respiratory/Chest Respiratory/Chest: Reports cough; Denies dyspnea Gastrointestinal Gastrointestinal: Denies vomiting Integumentary Denies rash Hematologic/Lymphatic Hematologic/Lymphatic: Reports easy bleeding and easy bruising EXAM Physical Exam Const Vital Signs: 12/21/24 11:11 12/21/24 11:14 12/21/24 11:34 Temperature 98.3 F Temperature Source Axillary Pulse Rate 110 H Respiratory Rate 24 H Respiratory Effort Normal Blood Pressure 111/84 H Blood Pressure Mean 93 Pulse Ox 100 95 Oxygen Delivery Method Room Air Trach Collar Trach Collar Oxygen Flow Rate (L/min) 4 10 Fraction of Inspired Oxygen (FIO2) 35 12/21/24 12:10 12/21/24 13:00 12/21/24 14:00 Temperature Temperature Source Pulse Rate 114 H 111 H 119 H Respiratory Rate 18 18 20 H Respiratory Effort Blood Pressure 105/77 106/76 139/16 H Blood Pressure Mean 86 86 57 Pulse Ox 98 97 98 Oxygen Delivery Method Trach Collar Trach Collar Trach Collar Oxygen Flow Rate (L/min) Fraction of Inspired Oxygen (FIO2) 35 12/21/24 15:00 Temperature Temperature Source Pulse Rate 129 H Respiratory Rate 25 H Respiratory Effort Blood Pressure 99/55 L Blood Pressure Mean 69 Pulse Ox Oxygen Delivery Method Oxygen Flow Rate (L/min) Fraction of Inspired Oxygen (FIO2) Positive well nourished, well developed and cachectic Constitutional Narrative: Chronically ill-appearing General Appearance ED: well developed, cachectic and pallor Nutritional Appearance: cachectic HEENT HEENT Narrative: Red blood in the mouth. No obvious active bleeding from the mouth. Edentulous with dentures in place. No signs of epistaxis. atraumatic Eyes PERRL General Eye ED: Yes pale conjunctiva Neck supple Chest Wall Chest Narrative: Right anterior chest wall port present. Resp normal respiratory effort Resp Narrative: Coarse breath sounds throughout. Tracheostomy in place with send red blood and clots around it. Cardio regular rhythm Rate: tachycardic GI non-tender and non-distended GI Narrative: PEG tube in place Auscultation: normoactive bowel sounds Palpation: soft Neuro oriented x3 Sensorium / Orientation: alert Motor Exam: general weakness Psych mental status grossly normal Skin General Skin Exam: pallor MDM MDM MDM Narrative Medical decision making narrative: Patient Biba for bleeding from his tracheostomy and mouth. The bleeding seems to be coming more from his tracheostomy retropharynx and then coming up to his mouth versus from his mouth however it is not entirely clear. No active site of bleeding is visualized. I do not see any signs of epistaxis. Differential includes hemorrhagic shock, aorto tracheal fistula, new lung mass, hemoptysis, ulceration associated with tracheostomy and GI bleeding. CBC shows mildly with hemoglobin of 11.7 which is stable. INR is normal with a mildly elevated PTT. Type and screen was obtained. EKG shows sinus tachycardia. I spoke with Dr. Escobedo, his ENT physician. He recommended CTA as well as CT soft tissue neck and chest. Suspect holding his Eliquis will stemming the bleeding. CT imaging does not show an obvious source of bleeding. He does have enlargement of the pulmonary lymph nodes concerning for worsening neoplastic disease. While in the ER patient continues to have a steady bright red oozing from his tracheostomy site. Because of his persistent tachycardia (as of a history of this) active bleeding anticoagulation decision made to reverse his Eliquis with Kcentra. I did discuss with patient the risk of stroke since he has atrial fibrillation and this is the indication for his anticoagulation. However, he is not currently in A-fib. He is agreeable. In addition patient is agreeable to blood transfusion if needed. While in the ER patient does have an episode of hematemesis. Suspect it is swallowed blood. His PEG tube is aspirated and there is no significant blood in there after the episode of hematemesis. Out of abundance of caution I did discuss with Dr. Clement who is available if needed and give IV Protonix. Patient will be admitted to ICU for further hemodynamic monitoring and evaluation of his bleeding. He is agreeable. Remains hemodynamically stable at this time. Given that his blood pressure is stable will hold off on blood products at this time. Case discussed with hospitalist, Dr. Ferrara. Lab Data Labs: Laboratory Results - last 24 hr 12/21/24 11:57 WBC 7.2 RBC 4.09 L Hgb 11.7 L Hct 35.2 L MCV 86.1 MCH 28.6 MCHC 33.2 RDW Std Deviation 48.5 H RDW Coeff of Elidia 15.2 H Plt Count 270 MPV 9.5 Immature Gran % (Auto) 0.300 Neut % (Auto) 72.7 H Lymph % (Auto) 8.8 L [place] % (Auto) 13.5 H Eos % (Auto) 4.3 Baso % (Auto) 0.4 Absolute Neuts (auto) 5.2 Absolute Lymphs (auto) 0.63 L Nucleated RBC % 0 PT 15.9 H INR 1.2 APTT 34.4 Sodium 132 L Potassium 4.9 Chloride 94 L Carbon Dioxide 28.1 Anion Gap 10 BUN 26 H Creatinine 0.51 L Estim Creat Clear Calc 82.83 Est GFR (MDRD) Non-Af 110 BUN/Creatinine Ratio 50.0 H Glucose 104 H Calcium 9.2 Blood Type A POSITIVE Antibody Screen NEGATIVE Radiography Diagnostic Testing: Clinical Impression(s) from Imaging Studies Chest CTA 12/21/24 11:41 IMPRESSION: Suboptimal exam secondary to phase of scan. Contrast is already in the aorta. No large filling defects in the main central pulmonary arteries to suggest pulmonary embolus. Reading Location: [facility] Soft Tissue Neck CT 12/21/24 11:41 IMPRESSION: 1. No obvious focus of arterial blush or contrast extravasation to suggest active arterial bleed or tracheo-arterial fistula. 2. Bilateral level Ib nodes, which have increased in size since 2023, and are most compatible with darius metastatic disease. Correlation with patient's oncologic history recommended. Reading Location: [facility] Rhythm Strip Rhythm Strip: Sinus Tach Rate: 111 Ectopy: None EKG Initial EKG: Attestation: I personally reviewed and interpreted this EKG as follows: Interpretation: Sinus Tachycardia Comments: Sinus tachycardia at a rate of 111 bpm Left axis deviation Pulmonary disease pattern Normal ST segment Management Discussion w/another healthcare provider: Hospitalist and Design Eng Critical Care Time Critical Care Time: Yes Critical care time (excluding procedures): 30-74 minutes (50), Discussing w/Patient &/or Family/Karate Black Belt, Discussing w/Consultants and Arranging Admission or Transfer Discharge Plan Triage Chief Complaint: Cough ED Provider: Eboni Calvillo Dx/Rx/DC Orders Clinical Impression: Anemia, Laryngeal squamous cell carcinoma, Tachycardia, Tracheostomy hemorrhage, Current use of senior care anticoagulation Prescriptions: No Action ipratropium-albuterol 0.5 mg-3 mg(2.5 mg base)/3 mL solution for nebulization 3 ml inhalation TID Qty: 180 11RF acetaminophen 325 mg tablet 325 mg PO Q4H PRN (Reason: fever or pain) bupropion HCl 75 mg tablet 150 mg PO BID multivitamin Tablet 1 tab PO QDAY ondansetron 4 mg tablet,disintegrating 4 mg PO Q6H sodium chloride 1,000 mg tablet,soluble 1,000 mg PO QDAY atorvastatin 40 mg Tablet 40 mg PO QHS Qty: 30 2RF Eliquis 5 mg tablet 5 mg PO BID 30 Days Qty: 60 0RF guaifenesin [Adult Tussin Chest Congestion] 100 mg/5 mL liquid 600 mg PO Q6H PRN (Reason: congestion) 5 Days Qty: 500 11RF sennosides-docusate sodium [Stool Softener-Stimulant Laxat] 8.6-50 mg Tablet 2 tab PO BID Qty: 0 0RF aspirin 81 mg Tablet,Delayed Release (Dr/Ec) 81 mg PO BREAKFAST Qty: 0 0RF carvedilol 3.125 mg Tablet 3.125 mg PO BID Qty: 0 0RF potassium chloride 20 mEq/15 mL liquid 15 meq feeding tube DAILY thiamine HCl (vitamin B1) [Vitamin B-1] 100 mg Tablet 100 mg PO DAILY Primary Care Provider: Juan Rai Referrals: Juan Rai DO [Primary Care Provider] - Print Language: Namibian Disposition Disposition: Acute Care Hospital [facility]
[2024-12-21 12:24] LABS: Hematocrit 35.2 % (40-54); Hemoglobin 11.7 g/dL (13.0-16.5); Immature Granulocytes Count 0.020 X10^3/uL (0.0-0.0); Mean Corp Hgb Conc 33.2 g/dL (32-36); Mean Corpuscular Volume 86.1 fL (80-94); Mean Platelet Vol. 9.5 fl (6.2-12.0); NRBC Flagged by Analyzer 0 % (0-5); Platelet Count 270 K/mm3 (150-450); RBC Distribution Width CV 15.2 % (11.6-14.6); RBC Distribution Width SD 48.5 fl (35.1-43.9); Red Blood Count 4.09 M/mm3 (4.6-6.2); White Blood Count 7.2 K/mm3 (4.4-11.0)
[2024-12-21 12:30] LABS: Prothrombin Time (Protime)PT. 15.9 SECONDS (11.7-14.9)
[2024-12-21 12:31] LABS: Partial Thromboplast Time 34.4 Seconds (24.1-36.2)
[2024-12-21 12:47] LABS: Anion Gap 10 (5-15); BUN 26 mg/dL (4-19); BUN/Creat Ratio 50.0 RATIO (10-20); Calcium,Total 9.2 mg/dL (7.6-11.0); Carbon Dioxide 28.1 mmol/L (21.0-32.0); Chloride 94 mmol/L (98-108); Estimated Creatinine Clearance 82.83 ml/min (50-250); Glucose 104 mg/dL (70-99); Potassium 4.9 mmol/L (3.3-5.1)
[2024-12-21] MEDS: 0.9% Normal Saline (1000mL) 1,000 ML 999 ML IV (12:47)
--- NOTE | 2024-12-21 14:36 | CASEMGMT ---
Social Work SW confirmed with patient that he plans to return to [facility] when he is medically ready. Maia Waters, CONSULTING TECHNICAL MANAGER, [employer] NET DEVELOPER
--- NOTE | 2024-12-21 15:04 | ED.RN ---
This RN bedside to disconnect IV fluids when it was noticed that the patient had vomited across room. Coffee ground emesis noted with bright red bloo. Patients mouth and trach suctioned. Room cleaned, complete bed change performed, patient cleaned up, IV dressing changed due to soiling and new gown and monitors cleaned and replaced.
[2024-12-21] MEDS: Pantoprazole Sodium 80 MG in 0.9% Normal Saline (50mL Bag) 15 ML 420 MG IV BOLUS (15:44)
[2024-12-21] MEDS: HUM PROTHROMBIN CPLX(PCC)-LANS 3,240 UNIT in Viaflex Bag 1 BAG 484 UNIT IV (15:48)
--- NOTE | 2024-12-21 16:10 | HP.PCM.HOS_ITS ---
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 Woke up at 4 AM with bleeding and also noted blood in the mouth so was brought in from the nursing facility. No trauma. Tracheostomy last replaced December 03. Is on Eliquis for A-fib though recent EKGs show patient in sinus rhythm. In the ED heart rate of 110, blood pressure 111/84, respiratory rate 24 pulse ox 100% on trach collar. Hemoglobin 11.7 which is baseline, INR 1.2, BMP 132 sodium, BUN 26 and a creatinine of 0.51. Patient's ENT doctor Dr. Coleman contacted by ED physician and requested CTA and CT of the neck. CTA suboptimal however no large filling defects and main central pulmonary arteries. CT soft tissue of the neck with no obvious arterial blush or contrast extravasation to suggest active arterial bleed or fistula. Does note bilateral level Ib nodes which have increased in size since 2023. Patient continued to bleed so PCC ordered for reversal of his Eliquis and it was recommended patient be admitted, likely no intervention if/when bleeding stops but Dr. Escobedo indicated he would be available if needed. Additionally ED physician contacted GI as we cannot rule out component of a GI bleed. Hospitalist contacted for admission. Patient evaluated at bedside. Patient communicates via writing on white board. He agrees with history as above, notes he is still bleeding, feels it may have slowed down very slightly. No increased shortness of breath, denies any abdominal pain but does note episode where he vomited earlier with blood. Denies any known changes in bowel or bladder. No chest pain. Denied any other new or acute complaints [facility] Medical History Anemia Herpes zoster Depression Former smoker On home oxygen therapy Atrial fibrillation Cardiomyopathy Alcoholism Laryngeal squamous cell carcinoma Esophageal mass Hyperlipidemia Chronic HFrEF (heart failure with reduced ejection fraction) Laryngeal mass Debility Wears dentures Wears glasses Cardiology follow-up encounter Difficulty swallowing Smoker High cholesterol COPD (chronic obstructive pulmonary disease) History of CHF (congestive heart failure) Agoraphobia CHF exacerbation Medical non-compliance Alcohol abuse Tobacco abuse Acute hypoxic respiratory failure Home Medications ?Medication ?Instructions ?Recorded ?Last Taken ?Type atorvastatin 40 mg tablet 40 mg PO QHS Cholesterol #30 tabs 10/15/23 12/20/24 Rx aspirin 81 mg tablet,delayed 81 mg PO BREAKFAST #0 tab s 11/26/23 12/21/24 Rx release carvedilol 3.125 mg tablet 3.125 mg PO BID #0 tabs 12/21/24 Rx sennosides 8.6 mg-docusate sodium 2 tab PO BID #0 tabs 11/26/23 12/21/24 Rx 50 mg tablet (Stool Softener-Stimulant Laxative) apixaban 5 mg tablet (Eliquis) 5 mg PO BID 30 days #60 tabs 02/26/24 12/21/24 Rx guaifenesin 100 mg/5 mL oral 600 mg (30 mL) PO Q6H PRN 03/09/24 12/21/24 Rx liquid (Adult Tussin Chest congestion 5 days #500 mL Congestion) ipratropium 0.5 mg-albuterol 3 mg 3 ml inhalation TID #180 mL 05/13/24 12/21/24 Rx (2.5 mg base)/3 mL nebulization soln acetaminophen 325 mg tablet 325 mg PO Q4H PRN fever or pain 10/03/24 Unknown History bupropion HCl 75 mg tablet 150 mg PO BID 10/03/24/08/23 History multivitamin 1 tab PO QDAY 10/03/2412/21 History ondansetron 4 mg disintegrating 4 mg PO Q6H 10/03/24 0 11/04/24 History tablet sodium chloride 1,000 mg soluble 1,000 mg PO QDAY main tainence 10/03/24 12/21/24 History tablet potassium chloride 20 mEq/15 mL 15 meq feeding tube DA RAMON 12/21/24 12/21/24 History oral liquid SUPPLEMENT thiamine HCl (vitamin B1) 100 mg 100 mg PO DAILY repla cement 12/21/24 12/21/24 History tablet (Vitamin B-1) Allergy/AdvReac Type Severity Reaction Status Date / Time No Known Allergies Allergy Verified 10/03/24 10:53 Family History Father Pacemaker Surgical History History of tracheostomy History of laryngoscopy History of surgery Social History household members: none current occupational status: retired Smoking Status: Former smoker alcohol intake: current alcohol intake frequency: 3 or more drinks per day Alcohol type: beer details: 6 24 ounce cans of beer daily. substance use type: does not use caffeine: Yes Type: coffee ROS ROS Narrative General: Denies fever/chills HENT: Denies headache, denies stuffy nose EYES: Denies changes in vision Resp: Has some chronic shortness of breath, cough with his trach and the blood Cardiac: Denies chest pain GI: Denies abdominal pain, denies changes in bowel, had 1 episode of vomiting while in the ED with blood : Denies changes in urination Extremity: Denies swelling MSK: Some generalized weakness Neuro: Denies any numbness/tingling Heme: Bleeding around trach Skin: Denies rashes Psychiatric: No complaints voiced Vital Signs Vital Signs Vital Signs: 12/21/24 11:11 12/21/24 11:14 12/21/24 11:34 Temperature 98.3 F Temperature Source Axillary Pulse Rate 110 H Respiratory Rate 24 H Respiratory Effort Normal Blood Pressure 111/84 H Blood Pressure Mean 93 Pulse Ox 100 95 Oxygen Delivery Method Room Air Trach Collar Trach Collar Oxygen Flow Rate (L/min) 4 10 Fraction of Inspired Oxygen (FIO2) 35 12/21/24 12:10 12/21/24 13:00 12/21/24 14:00 Temperature Temperature Source Pulse Rate 114 H 111 H 119 H Respiratory Rate 18 18 20 H Respiratory Effort Blood Pressure 105/77 106/76 139/16 H Blood Pressure Mean 86 86 57 Pulse Ox 98 97 98 Oxygen Delivery Method Trach Collar Trach Collar Trach Collar Oxygen Flow Rate (L/min) Fraction of Inspired Oxygen (FIO2) 35 12/21/24 15:00 Temperature Temperature Source Pulse Rate 129 H Respiratory Rate 25 H Respiratory Effort Blood Pressure 99/55 L Blood Pressure Mean 69 Pulse Ox Oxygen Delivery Method Oxygen Flow Rate (L/min) Fraction of Inspired Oxygen (FIO2) Weight Weight: 67.2 kg Body Mass Index (BMI) 21.9 Physical Exam Narrative General: Alert, awake HEENT: Atraumatic, normocephalic Eyes: Anicteric, normal conjunctiva, extraocular movements grossly intact Neck: Blood coming from around trach Respiratory: Somewhat coarse bilaterally with some increased respiratory effort Cardiovascular: Low-grade sinus tachycardia GI: Soft, nontender, nondistended Extremities: No edema Musculoskeletal: Moving all extremities Neuro: No overt focal neurological deficits Skin: No rashes appreciated Psych: Cooperative Results Lab / Micro Data 12/21/24 11:57 12/21/24 11:57 Labs: Laboratory Results - last 24 hr 12/21/24 11:57: WBC 7.2, RBC 4.09 L, Hgb 11.7 L, Hct 35.2 L, MCV 86.1, MCH 28.6, MCHC 33.2, RDW Std Deviation 48.5 H, RDW Coeff of Elidia 15.2 H, Plt Count 270, MPV 9.5, Immature Gran % (Auto) 0.300, Neut % (Auto) 72.7 H, Lymph % (Auto) 8.8 L, M lizy % (Auto) 13.5 H, Eos % (Auto) 4.3, Baso % (Auto) 0.4, Absolute Neuts (auto) 5.2, Absolute Lymphs (auto) 0.63 L, Nucleated RBC % 0, PT 15.9 H, INR 1.2, APTT 34.4, Sodium 132 L, Potassium 4.9, Chloride 94 L, Carbon Dioxide 28.1, Anion Gap 10, BUN 26 H, Creatinine 0.51 L, Estim Creat Clear Calc 82.83, Est GFR (MDRD) Non-Af 110, BUN/Creatinine Ratio 50.0 H, Glucose 104 H, Calcium 9.2, Blood Type A POSITIVE, Antibody Screen NEGATIVE Rhythm Strip Rhythm Strip: Sinus Tach Rate: 111 Ectopy: None Imaging Radiology Impression Chest CTA 12/21/24 11:41 IMPRESSION: Suboptimal exam secondary to phase of scan. Contrast is already in the aorta. No large filling defects in the main central pulmonary arteries to suggest pulmonary embolus. Reading Location: [facility] Soft Tissue Neck CT 12/21/24 11:41 IMPRESSION: 1. No obvious focus of arterial blush or contrast extravasation to suggest active arterial bleed or tracheo-arterial fistula. 2. Bilateral level Ib nodes, which have increased in size since 2023, and are most compatible with darius metastatic disease. Correlation with patient's oncologic history recommended. Reading Location: [id number] Assessment & Plan Assessment/Plan (1) Tracheostomy hemorrhage: PLAN: Plan # Bleeding around tracheostomy - CTA of chest and CT soft tissue neck with no obvious abnormality that explain current bleeding - Patient to be reversed with Kcentra given continued bleeding -Cycling hemoglobin - Patient will be monitored in the ICU - ED physician discussed with ENT, will place consult - Given extent of bleeding will hold aspirin at this time as well - Starting patient on IV Protonix, does not seem that there is upper GI bleed and that this is tracheostomy related, no blood when PEG aspirated below threshold to consult GI if necessary #Hx COPD - Continue inhalers - Patient chronically on trach collar # History of heart failure with reduced ejection fraction -Daily weights, I's and O's -Last echo with EF of 40% -Monitor volume status carefully #Paroxysmal Atrial Fibrillation -Rate control: Carvedilol, blood pressure is somewhat borderline so we will hold carvedilol at this time -Anticoagulation: Eliquis held and is being reversed, presently sinus rhythm on EKG #Depression/anxiety -Continue home Wellbutrin # Chronic hyponatremia - Appears to be at baseline -Continue home salt tabs - Daily BMPs # Laryngeal cancer - CT w/ bilat level lb nodes which have increased in size since 2023, patient will need to follow with oncology once stable in the event this is a new finding #DVT ppx: SCDs Nadya Ferrara MD CODE status: Discussed CODE status with patient and when asked if he would want chest compressions and CPR if his heart were to stop beating he wrote no, indicated that he was okay with intubation and what that entailed however Charges/Coding Visit Charges Inpatient E&M: 91415 Init Hosp L2
--- NOTE | 2024-12-21 16:54 | CPS ---
Size 4 and 6 uncuffed shiley's in patient room.
[2024-12-21 17:53] LABS: Hematocrit 29.1 % (40-54); Hemoglobin 9.5 g/dL (13.0-16.5); Mean Corp Hgb Conc 32.6 g/dL (32-36); Mean Corpuscular Volume 86.9 fL (80-94); Mean Platelet Vol. 9.7 fl (6.2-12.0); Platelet Count 245 K/mm3 (150-450); RBC Distribution Width CV 15.4 % (11.6-14.6); RBC Distribution Width SD 49.1 fl (35.1-43.9); Red Blood Count 3.35 M/mm3 (4.6-6.2); White Blood Count 9.6 K/mm3 (4.4-11.0)
[2024-12-21] MEDS: Pantoprazole Sodium 40 MG in 0.9% Normal Saline (100mL MB+) 100 ML 300 MG IV (21:36)
[2024-12-21] MEDS: 0.9% Normal Saline (250mL Bag) 250 ML 15 ML IV (21:38)
[2024-12-21 21:40] LABS: Hematocrit 28.9 % (40-54); Hemoglobin 9.5 g/dL (13.0-16.5); Mean Corp Hgb Conc 32.9 g/dL (32-36); Mean Corpuscular Volume 86.0 fL (80-94); Mean Platelet Vol. 9.7 fl (6.2-12.0); Platelet Count 218 K/mm3 (150-450); RBC Distribution Width CV 15.3 % (11.6-14.6); RBC Distribution Width SD 48.8 fl (35.1-43.9); Red Blood Count 3.36 M/mm3 (4.6-6.2); White Blood Count 8.5 K/mm3 (4.4-11.0)
[2024-12-21] MEDS: Senna/Docusate Sodium 1 Tablet 2 TABLET GT (21:42)
[2024-12-21] MEDS: 0.9% Saline Lock 10 ML Syringe IV (21:45)
[2024-12-22] VITALS (24 sets, daily range): BP systolic 91–125; BP diastolic 69–85; PULSE 92–125; RESP 16–26; TEMP 36.2–36.9; O2SAT 97–100; BMI 21.2
[2024-12-22 04:10] LABS: Hematocrit 26.9 % (40-54); Hemoglobin 8.9 g/dL (13.0-16.5); Immature Granulocytes Count 0.040 X10^3/uL (0.0-0.0); Mean Corp Hgb Conc 33.1 g/dL (32-36); Mean Corpuscular Volume 85.7 fL (80-94); Mean Platelet Vol. 9.5 fl (6.2-12.0); NRBC Flagged by Analyzer 0 % (0-5); POSITIVE DIFFERENTIAL YES; Platelet Count 209 K/mm3 (150-450); RBC Distribution Width CV 15.4 % (11.6-14.6); RBC Distribution Width SD 48.4 fl (35.1-43.9); Red Blood Count 3.14 M/mm3 (4.6-6.2); White Blood Count 6.1 K/mm3 (4.4-11.0)
[2024-12-22 04:35] LABS: Anion Gap 9 (5-15); BUN 24 mg/dL (4-19); BUN/Creat Ratio 48.0 RATIO (10-20); Calcium,Total 8.7 mg/dL (7.6-11.0); Carbon Dioxide 27.6 mmol/L (21.0-32.0); Chloride 99 mmol/L (98-108); Estimated Creatinine Clearance 80.37 ml/min (50-250); Glucose 94 mg/dL (70-99); Potassium 4.0 mmol/L (3.3-5.1)
--- NOTE | 2024-12-22 09:18 | CASEMGMT ---
Social Work SW did verify w/pt that Georgina Monsalve, his daughter, is his POA. The document is on file. No changes needed at this time. LIZZY Moore
[2024-12-22] MEDS: Senna/Docusate Sodium 1 Tablet 2 TABLET GT ×2 (10:00→22:45)
[2024-12-22] MEDS: Potassium Chloride Oral Soln 20 MEQ/15 ML UDC 15 MEQ GT (10:01)
[2024-12-22] MEDS: Thiamine Hydrochloride 100 MG Tablet GT (10:03)
--- NOTE | 2024-12-22 10:15 | CASEMGMT ---
Addendum entered by Alka Valderrama 12/22/24 10:23: [place] would like to skill pt but said that he can return while they are waiting on auth. Alka Valderrama DC Planning Asst. Original Note: Discharge Planning Updates sent to [facility]. Asked if precert will be needed to return. Awaiting response. Alka Valderrama DC Planning Asst.
[2024-12-22] MEDS: Pantoprazole Sodium 40 MG in 0.9% Normal Saline (100mL MB+) 100 ML 300 MG IV ×2 (10:22→22:45)
[2024-12-22] MEDS: 0.9% Saline Lock 10 ML Syringe IV (10:22)
[2024-12-22 10:27] LABS: Hematocrit 26.4 % (40-54); Hemoglobin 8.7 g/dL (13.0-16.5); Mean Corp Hgb Conc 33.0 g/dL (32-36); Mean Corpuscular Volume 86.0 fL (80-94); Mean Platelet Vol. 9.8 fl (6.2-12.0); Platelet Count 223 K/mm3 (150-450); RBC Distribution Width CV 15.6 % (11.6-14.6); RBC Distribution Width SD 49.2 fl (35.1-43.9); Red Blood Count 3.07 M/mm3 (4.6-6.2); White Blood Count 7.1 K/mm3 (4.4-11.0)
--- NOTE | 2024-12-22 13:44 | PN_ITS ---
Subjective Subjective Patient seen and examined. He was lying quietly in bed. He had no active complaints. He denied any further bleeding from the trach site. He denied any fever, chills, cough, chest pain, palpitations, dizziness, nausea, vomiting or any other symptoms. Review of systems is otherwise negative. Hb is 8.7. Objective Data Objective Data Vital Signs: Vital Signs Temp Pulse Resp BP Pulse Ox O2 Del Method O2 Flow Rate 97.2 F L 103 H 16 116/70 99 Trach Collar 12 12/22/24 11:00 12/22/24 13:25 12/22/24 13:25 12/22/24 11:00 12/22/24 11:00 12/22/24 11:00 12/22/24 11:00 FiO2 35 12/22/24 11:00 Oxygen Flow Rate (L/min) 12 Oxygen Delivery Method Trach Collar Weight: 143 lb 11.862 oz Body Mass Index (BMI) 21.2 Intake & Output: Intake and Output for Last 24 Hours 12/20/24 12/21/24 12/22/24 23:59 23:59 23:59 Intake Total 1255 / 1335 413 / 413 Output Total 750 / 750 925 / 925 Balance 505 / 585 -512 / -512 Lab / Micro Data 12/22/24 10:00 12/22/24 04:02 Labs: Laboratory Results - last 24 hr 12/21/24 17:40: WBC 9.6, RBC 3.35 L, Hgb 9.5 L, Hct 29.1 L, MCV 86.9, MCH 28.4, MCHC 32.6, RDW Std Deviation 49.1 H, RDW Coeff of Elidia 15.4 H, Plt Count 245, MPV 9.7 12/21/24 21:35: WBC 8.5, RBC 3.36 L, Hgb 9.5 L, Hct 28.9 L, MCV 86.0, MCH 28.3, MCHC 32.9, RDW Std Deviation 48.8 H, RDW Coeff of Elidia 15.3 H, Plt Count 218, MPV 9.7 12/22/24 04:02: Sodium 135, Potassium 4.0, Chloride 99, Carbon Dioxide 27.6, Anion Gap 9, BUN 24 H, Creatinine 0.51 L, Estim Creat Clear Calc 80.37, Est GFR (MDRD) Non-Af 110, BUN/Creatinine Ratio 48.0 H, Glucose 94, Calcium 8.7 12/22/24 04:05: WBC 6.1, RBC 3.14 L, Hgb 8.9 L, Hct 26.9 L, MCV 85.7, MCH 28.3, MCHC 33.1, RDW Std Deviation 48.4 H, RDW Coeff of Elidia 15.4 H, Plt Count 209, MPV 9.5, Immature Gran % (Auto) 0.700, Neut % (Auto) 72.8 H, Lymph % (Auto) 9.6 L, M lizy % (Auto) 15.0 H, Eos % (Auto) 1.6, Baso % (Auto) 0.3, Absolute Neuts (auto) 4.4, Absolute Lymphs (auto) 0.58 L, Nucleated RBC % 0 12/22/24 10:00: WBC 7.1, RBC 3.07 L, Hgb 8.7 L, Hct 26.4 L, MCV 86.0, MCH 28.3, MCHC 33.0, RDW Std Deviation 49.2 H, RDW Coeff of Elidia 15.6 H, Plt Count 223, MPV 9.8 Rhythm Strip Rhythm Strip: Sinus Tach Rate: 111 Ectopy: None Physical Exam Const alert and oriented x3 Constitutional Narrative: frail HEENT normocephalic HEENT Narrative: trach in situ, scant blood in trach. Mouth: dry mucous membranes Eyes PERRL Neck no lymphadenopathy and supple Resp Resp Narrative: mildly diminished breath sounds bibasally, no wheezes or crackes. on oxygen via trach at FiO2 of 35% and 12L/min of oxygen. Cardio regular rate, regular rhythm, S1 normal heart sound, S2 normal heart sound and no murmurs GI normal to inspection, nondistended, normoactive bowel sounds, soft to palpation, non-tender and non-distended Extremity General Extremity: no tenderness to palpation of joints or extremities Skin General Skin Exam: no breakdown Neuro no focal motor deficits and no sensory deficits noted Psych cooperative and affect normal Appearance: appropriate Assessment & Plan Assessment/Plan (1) Tracheostomy hemorrhage: PLAN: Plan # #Tracheostomy hemorrhage * Patient has trach in place in light of his history of throat cancer. He is on Eliquis for A-fib. * Started bleeding from the trach. He was admitted to the ICU. Hemoglobin is 8.7. He had received Kcentra on admission due to the continued bleeding. Aspirin also held. * He was also started on IV Protonix due to concern that this may be an upper GI bleed though this seems unlikely as when his PEG tube was aspirated below threshold there was no blood. * Bleeding has stopped. Hemoglobin did not drop any further. Will transfer out of ICU. I did discuss with the patient the risk of continuing the blood thinner in light of the bleeding. I counseled him that he does have an increased risk of stroke given stop the blood thinner due to his history of A- fib. Patient however is agreeable to stopping the A-fib due to the increased risk of bleeding. #Chronic respiratory failure in the setting of history of throat cancer with trach: On oxygen via trach collar. Breathing treatments with bronchodilators. Titrate oxygen to maintain saturation above 90%. #History of heart failure with reduced ejection fraction: Has known EF of 30%. Currently not in heart failure exacerbation. #Paroxysmal A-fib: Carvedilol held due to borderline blood pressure. Eliquis held as discussed above #Depression and anxiety: On Wellbutrin #Chronic hyponatremia: Sodium at baseline. On oral salt tablets. Will continue. #History of laryngeal cancer, s/p tracheostomy. CT showed bilateral lymph nodes which have increased in size since 2023. Will need follow-up with oncology on outpatient basis DVT prophylaxis: SCDs Disposition: Transfer out of ICU to the regular floor today. Charges/Coding Visit Charges Inpatient E&M: 55435 Subs Hosp L2
[2024-12-22] MEDS: Jevity 1.5 1,000 ML 60 ML GT (18:29)
[2024-12-23] VITALS (20 sets, daily range): BP systolic 92–117; BP diastolic 62–80; PULSE 58–144; RESP 16–27; TEMP 36–36.6; O2SAT 99–100; BMI 21.3
[2024-12-23 06:08] LABS: Hematocrit 23.0 % (40-54); Hemoglobin 7.7 g/dL (13.0-16.5); Immature Granulocytes Count 0.020 X10^3/uL (0.0-0.0); Mean Corp Hgb Conc 33.5 g/dL (32-36); Mean Corpuscular Volume 86.5 fL (80-94); Mean Platelet Vol. 9.5 fl (6.2-12.0); NRBC Flagged by Analyzer 0 % (0-5); POSITIVE DIFFERENTIAL YES; Platelet Count 196 K/mm3 (150-450); RBC Distribution Width CV 15.5 % (11.6-14.6); RBC Distribution Width SD 48.8 fl (35.1-43.9); Red Blood Count 2.66 M/mm3 (4.6-6.2); White Blood Count 6.5 K/mm3 (4.4-11.0)
[2024-12-23 07:12] LABS: Anion Gap 9 (5-15); BUN 20 mg/dL (4-19); BUN/Creat Ratio 41.4 RATIO (10-20); Calcium,Total 8.4 mg/dL (7.6-11.0); Carbon Dioxide 27.0 mmol/L (21.0-32.0); Chloride 100 mmol/L (98-108); Estimated Creatinine Clearance 80.86 ml/min (50-250); Glucose 123 mg/dL (70-99); Potassium 3.6 mmol/L (3.3-5.1)
[2024-12-23] MEDS: Potassium Chloride Oral Soln 20 MEQ/15 ML UDC 15 MEQ GT (09:41)
[2024-12-23] MEDS: Senna/Docusate Sodium 1 Tablet 2 TABLET GT ×2 (09:42→21:35)
[2024-12-23] MEDS: Thiamine Hydrochloride 100 MG Tablet GT (09:42)
[2024-12-23] MEDS: Pantoprazole Sodium 40 MG in 0.9% Normal Saline (100mL MB+) 100 ML 300 MG IV ×2 (09:53→21:34)
[2024-12-23] MEDS: 0.9% Saline Lock 10 ML Syringe IV (10:14)
--- NOTE | 2024-12-23 10:57 | CASEMGMT ---
Pts daughter notified that the DC plan is for the pt to return to [facility] once medically ready, under longterm care. Green sheet with transport form on chart for nursing to follow for final discharge arrangements/notifications to facility, patient/family. No further needs identified at this time.
--- NOTE | 2024-12-23 11:34 | CASEMGMT ---
Discharge Planning Updates sent to [facility]. Alka Valderrama DC Planning Asst.
[2024-12-23 12:38] LABS: Hematocrit 24.1 % (40-54); Hemoglobin 7.9 g/dL (13.0-16.5)
[2024-12-23] MEDS: Jevity 1.5 1,000 ML 60 ML GT (14:35)
--- NOTE | 2024-12-23 15:46 | PN_ITS ---
Subjective Subjective Patient seen and examined. He had no active complaints and had an uneventful night. He has not had any more bleeding from the trach site. Review of systems is otherwise negative. His Hb had dropped to 7.7. Objective Data Objective Data Vital Signs: Vital Signs Temp Pulse Resp BP Pulse Ox O2 Del Method O2 Flow Rate 97.6 F L 100 22 H 107/80 100 Trach Collar 10 12/23/24 04:00 12/23/24 13:20 12/23/24 13:20 12/23/24 06:00 12/23/24 08:00 12/23/24 14:00 12/23/24 14:00 FiO2 30 12/23/24 14:00 Oxygen Flow Rate (L/min) 10 Oxygen Delivery Method Trach Collar Weight: 144 lb 9.972 oz Body Mass Index (BMI) 21.3 Intake & Output: Intake and Output for Last 24 Hours 12/21/24 12/22/24 12/23/24 23:59 23:59 23:59 Intake Total 1255 / 1335 638 / 638 1570 / 1570 Output Total 750 / 750 1075 / 1275 700 / 700 Balance 505 / 585 -437 / -637 870 / 870 Lab / Micro Data 12/23/24 12:30 12/23/24 05:55 Labs: Laboratory Results - last 24 hr 12/23/24 05:55: WBC 6.5, RBC 2.66 L, Hgb 7.7 L, Hct 23.0 L, MCV 86.5, MCH 28.9, MCHC 33.5, RDW Std Deviation 48.8 H, RDW Coeff of Elidia 15.5 H, Plt Count 196, MPV 9.5, Immature Gran % (Auto) 0.300, Neut % (Auto) 74.2 H, Lymph % (Auto) 8.9 L, M lizy % (Auto) 13.7 H, Eos % (Auto) 2.6, Baso % (Auto) 0.3, Absolute Neuts (auto) 4.8, Absolute Lymphs (auto) 0.58 L, Nucleated RBC % 0, Sodium 136, Potassium 3.6, Chloride 100, Carbon Dioxide 27.0, Anion Gap 9, BUN 20 H, Creatinine 0.48 L , Estim Creat Clear Calc 80.86, Est GFR (MDRD) Non-Af 112, BUN/Creatinine Ratio 41.4 H, Glucose 123 H, Calcium 8.4 12/23/24 12:30: Hgb 7.9 L, Hct 24.1 L Rhythm Strip Rhythm Strip: Sinus Tach Rate: 111 Ectopy: None Physical Exam Const alert and oriented x3 Constitutional Narrative: frail HEENT normocephalic, head/scalp atraumatic, moist oral mucous membranes and oropharynx normal Eyes PERRL Neck no lymphadenopathy and supple Resp Resp Narrative: mildly diminished breath sounds bibasally, no wheezes or crackes. on oxygen via trach at FiO2 of 30% and 10L/min of oxygen. Cardio regular rate, regular rhythm, S1 normal heart sound, S2 normal heart sound and no murmurs GI normal to inspection, nondistended, normoactive bowel sounds, soft to palpation, non-tender and non-distended Extremity General Extremity: no tenderness to palpation of joints or extremities Skin General Skin Exam: no breakdown Neuro no focal motor deficits and no sensory deficits noted Psych cooperative and affect normal Appearance: appropriate Assessment & Plan Assessment/Plan (1) Tracheostomy hemorrhage: PLAN: Plan # #Tracheostomy hemorrhage * Patient has trach in place in light of his history of throat cancer. He is on Eliquis for A-fib. * Started bleeding from the trach. He was admitted to the ICU. Hemoglobin is 8.7. He had received Kcentra on admission due to the continued bleeding. Aspirin also held. * He was also started on IV Protonix due to concern that this may be an upper GI bleed though this seems unlikely as when his PEG tube was aspirated below threshold there was no blood. * Bleeding has stopped. His Hb did drop today to 7.7 today, down from 8.7. * I did discuss with the patient the risk of continuing the blood thinner in light of the bleeding. I counseled him that he does have an increased risk of stroke given stop the blood thinner due to his history of A-fib. Patient however is agreeable to stopping the A-fib due to the increased risk of bleeding. #Chronic respiratory failure in the setting of history of throat cancer with trach: On oxygen via trach collar. Breathing treatments with bronchodilators. Titrate oxygen to maintain saturation above 90%. #History of heart failure with reduced ejection fraction: Has known EF of 30%. Currently not in heart failure exacerbation. #Paroxysmal A-fib: Carvedilol held due to borderline blood pressure. Eliquis held as discussed above #Depression and anxiety: On Wellbutrin #Chronic hyponatremia: Sodium at baseline. On oral salt tablets. Will continue. #History of laryngeal cancer, s/p tracheostomy. CT showed bilateral lymph nodes which have increased in size since 2023. Will need follow-up with oncology on outpatient basis DVT prophylaxis: SCDs Disposition:plan on discharging tomorrow. I want to keep him overnight to make sure Hb does not drop any further as it dropped one more unit today. Charges/Coding Visit Charges Inpatient E&M: 40138 Subs Hosp L2
--- NOTE | 2024-12-23 23:23 | EKG12_ITS ---
Test Reason : rythm change Blood Pressure : */* mmHG Vent. Rate : 70 BPM Atrial Rate : 70 BPM P-R Int : 186 ms QRS Dur : 84 ms QT Int : 400 ms P-R-T Axes : 85 33 85 degrees QTcB Int : 432 ms Normal sinus rhythm Normal ECG No previous ECGs available Confirmed by SENIA REYNOLDS, NAILA ([id number]), newspaper managing editor [place] ROSS ([id number]) on 12/27/2024 1:10:10 PM Referred By: Eboni Calvillo Confirmed By: NAILA CONN MD
--- NOTE | 2024-12-23 23:40 | PCM.HOSP.N ---
Hospitalist Note Patient flipped into atrial fibrillation with RVR. Heart rate sustained into the 140s. Patient has been normotensive. Will order diltiazem bolus and then drip. No anticoagulation given his recent bleeding from his tracheostomy site. Acute echocardiogram from September 2023 showed an EF of 40%.
[2024-12-24] VITALS (29 sets, daily range): BP systolic 89–124; BP diastolic 52–76; PULSE 72–150; RESP 16–30; TEMP 36.1–36.5; O2SAT 97–100; BMI 21.9
[2024-12-24 00:32] LABS: Hematocrit 24.6 % (40-54); Hemoglobin 8.0 g/dL (13.0-16.5); Immature Granulocytes Count 0.020 X10^3/uL (0.0-0.0); Mean Corp Hgb Conc 32.5 g/dL (32-36); Mean Corpuscular Volume 87.5 fL (80-94); Mean Platelet Vol. 9.4 fl (6.2-12.0); NRBC Flagged by Analyzer 0 % (0-5); POSITIVE DIFFERENTIAL YES; Platelet Count 210 K/mm3 (150-450); RBC Distribution Width CV 15.8 % (11.6-14.6); RBC Distribution Width SD 50.4 fl (35.1-43.9); Red Blood Count 2.81 M/mm3 (4.6-6.2); White Blood Count 7.2 K/mm3 (4.4-11.0)
[2024-12-24] MEDS: Diltiazem 125 MG in Dextrose 5%-Water (100mL Bag) 100 ML IV (00:42)
[2024-12-24 00:58] LABS: Anion Gap 9 (5-15); BUN 15 mg/dL (4-19); BUN/Creat Ratio 30.6 RATIO (10-20); Calcium,Total 8.7 mg/dL (7.6-11.0); Carbon Dioxide 24.8 mmol/L (21.0-32.0); Chloride 99 mmol/L (98-108); Estimated Creatinine Clearance 80.86 ml/min (50-250); Glucose 112 mg/dL (70-99); Potassium 3.8 mmol/L (3.3-5.1)
[2024-12-24] MEDS: 0.9% Normal Saline (1000mL) 1,000 ML 999 ML IV (01:07)
[2024-12-24] MEDS: Amiodarone 150 MG in Dextrose 5%-Water (100mL Bag) 100 ML 600 MG IV BOLUS (05:01)
[2024-12-24] MEDS: Amiodarone 360 MG in Dextrose 5% Viaflo Bag 192.8 ML 33.3 MG CONT INF (05:10)
[2024-12-24] MEDS: Jevity 1.5 1,000 ML 60 ML GT (08:08)
[2024-12-24] MEDS: Potassium Chloride Oral Soln 20 MEQ/15 ML UDC 15 MEQ GT (09:40)
[2024-12-24] MEDS: Senna/Docusate Sodium 1 Tablet 2 TABLET GT ×2 (09:41→21:11)
[2024-12-24] MEDS: Thiamine Hydrochloride 100 MG Tablet GT (09:41)
--- NOTE | 2024-12-24 09:54 | ECHOCS_ITS ---
Reason For Study Reason For Study: Afib, Aflutter Procedure This was a 2D Doppler, Color Flow transthoracic echocardiogram. Contrast injection was performed. Exam performed portable in ICU/CCU. Left Ventricle Normal LV size. The left ventricular ejection fraction is 50 %. There is mild global hypokinesis of the left ventricle. Right Ventricle Normal RV size. Normal systolic function. Atria Normal left atrium. Normal right atrium. Mitral Valve Normal mitral valve. Tricuspid Valve Normal tricuspid valve. Aortic Valve The aortic valve is not well visualized. Pulmonic Valve The pulmonic valve is not well visualized. Great Vessels Normal aortic root. Pericardium/Pleural Small (<1.0 cm) pericardial effusion. Medication Diluted definity 1ml given slow IV push to enhance endocardial definition. MMode/2D Measurements & Calculations LVIDd: 5.0 cm IVSd: 1.1 cm Ao root diam: 3.0 cm LVIDs: 3.9 cm LVPWd: 1.1 cm RVDd: 2.4 cm FS: 23.1 % LAV(MOD-bp): 10.0 ml LVAd ap4: 33.2 cm2 SV(MOD-sp4): 60.1 ml LAV(MOD-bp) Indexed: 5.5 ml/m2 LVLd ap4: 7.7 cm SI(MOD-sp4): 33.1 ml/m2 LAV(MOD-sp2): 14.0 ml EDV(MOD-sp4): 121.2 ml LAV(MOD-sp4): 7.0 ml EDV(sp4-el): 122.0 ml LVAs ap4: 22.9 cm2 LVLs ap4: 7.1 cm ESV(MOD-sp4): 61.0 ml ESV(sp4-el): 62.3 ml EF(MOD-sp4): 49.6 % EF(sp4-el): 48.9 % SV(sp4-el): 59.7 ml LA A4 area: 6.1 cm2 LA dimension(2D): 2.8 cm RA A4 area: 9.9 cm2 TAPSE: 1.8 cm Doppler Measurements & Calculations MV E max masood: 68.4 cm/sec Lat Peak E' Masood: 11.8 cm/sec Med Peak E' Masood: 12.3 cm/sec E/E' lat: 5.8 E/E' med: 5.6 Ao V2 max: 106.5 cm/sec LV V1 max: 89.5 cm/sec PA V2 max: 78.6 cm/sec Ao max P.5 mmHg LV V1 max P.2 mmHg Ao V2 mean: 74.1 cm/sec Ao mean P.5 mmHg Ao V2 VTI: 12.5 cm TR max masood: 213.5 cm/sec TR max P.2 mmHg ECHO/Echo Complete W/ Contrast Interpretation Summary Normal LV size. The left ventricular ejection fraction is 50 %. Contrast injection was performed. The study was technically difficult. The stud y was technically limited. Ordering Physician: Priscilla Chris Referring Physician: Juan Rai Performed By: Letty Sanchez, BRIGIDA, RVT
[2024-12-24] MEDS: 0.9% Saline Lock 10 ML Syringe IV ×7 (10:11→21:07)
[2024-12-24] MEDS: 0.9% Normal Saline (250mL Bag) 250 ML 15 ML IV (10:11)
[2024-12-24] MEDS: Pantoprazole Sodium 40 MG in 0.9% Normal Saline (100mL MB+) 100 ML 300 MG IV (10:12)
--- NOTE | 2024-12-24 10:39 | CON.PCM.CA_ITS ---
Assessment & Plan Assessment/Plan (1) Atrial fibrillation: PLAN: He does have atrial fibrillation with a rapid ventricular response. The latter is likely caused by the stress of the situation at the present time. * My recommendation is to attempt to control his rate with small doses of intravenous diltiazem and intravenous amiodarone. * He eventually will be switched onto oral amiodarone and metoprolol. * Will give 1 dose of digoxin. * He can continue his Eliquis for now but due to his anemia I will suggest that we discontinue the aspirin. There is no evidence of overt obstructive coronary disease. He did previously have coronary calcification but with a normal stress test. 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 Will continue to optimize his guideline directed medical care after his heart rate has improved. Above discussed with hospitalist Thank you for allowing me to participate in the care of your patient. Please don't hesitate to call if any issues arise. 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 He also has a history of globally reduced ejection fraction estimated to be approximately 40%. He presented to the emergency room on 12/21/2024 with bleeding around his tracheostomy. Patient was admitted to the intensive care unit. There apparently has been a discussion between the ED, ENT, and GI. This morning has been noted to be tachycardic and mildly hypotensive and cardiology has been called for further evaluation and management. Patient is on intravenous amiodarone. He denies any chest pain and does not feel the palpitations. His EKG demonstrates atrial fibrillation with a rate of 128 bpm. COUNTS INCLUDE 234 BEDS AT THE [facility] Medical History (Updated 12/24/24 @ 10:[address] Fredy Dean MD) Anemia Herpes zoster Depression Former smoker On home oxygen therapy Atrial fibrillation Cardiomyopathy Alcoholism Laryngeal squamous cell carcinoma Esophageal mass Hyperlipidemia Chronic HFrEF (heart failure with reduced ejection fraction) Laryngeal mass Debility Wears dentures Wears glasses Cardiology follow-up encounter Difficulty swallowing Smoker High cholesterol COPD (chronic obstructive pulmonary disease) History of CHF (congestive heart failure) Agoraphobia CHF exacerbation Medical non-compliance Alcohol abuse Tobacco abuse Acute hypoxic respiratory failure Home Medications ?Medication ?Instructions ?Recorded ?Last Taken ?Type atorvastatin 40 mg tablet 40 mg PO QHS Cholesterol #30 tabs 10/15/23 12/20/24 Rx aspirin 81 mg tablet,delayed 81 mg PO BREAKFAST #0 tab s 11/26/23 12/21/24 Rx release carvedilol 3.125 mg tablet 3.125 mg PO BID #0 tabs 12/21/24 Rx sennosides 8.6 mg-docusate sodium 2 tab PO BID #0 tabs 11/26/23 12/21/24 Rx 50 mg tablet (Stool Softener-Stimulant Laxative) apixaban 5 mg tablet (Eliquis) 5 mg PO BID 30 days #60 tabs 02/26/24 12/21/24 Rx guaifenesin 100 mg/5 mL oral 600 mg (30 mL) PO Q6H PRN 03/09/24 12/21/24 Rx liquid (Adult Tussin Chest congestion 5 days #500 mL Congestion) ipratropium 0.5 mg-albuterol 3 mg 3 ml inhalation TID #180 mL 05/13/24 12/21/24 Rx (2.5 mg base)/3 mL nebulization soln acetaminophen 325 mg tablet 325 mg PO Q4H PRN fever or pain 10/03/24 Unknown History bupropion HCl 75 mg tablet 150 mg PO BID 10/03/24 07/08/23 History multivitamin 1 tab PO QDAY 10/03/2412/21 History ondansetron 4 mg disintegrating 4 mg PO Q6H 10/03/24 0 11/04/24 History tablet sodium chloride 1,000 mg soluble 1,000 mg PO QDAY main tainence 10/03/24 12/21/24 History tablet potassium chloride 20 mEq/15 mL 15 meq feeding tube DA RAMON 12/21/24 12/21/24 History oral liquid SUPPLEMENT thiamine HCl (vitamin B1) 100 mg 100 mg PO DAILY repla cement 12/21/24 12/21/24 History tablet (Vitamin B-1) Allergy/AdvReac Type Severity Reaction Status Date / Time No Known Allergies Allergy Verified 10/03/24 10:53 Family History Father Pacemaker Surgical History History of tracheostomy History of laryngoscopy History of surgery Social History household members: none current occupational status: retired Smoking Status: Former smoker alcohol intake: current alcohol intake frequency: 3 or more drinks per day Alcohol type: beer details: 6 24 ounce cans of beer daily. substance use type: does not use caffeine: Yes Type: coffee ROS Constitutional Constitutional: Denies fever(s) or weight loss Eyes Eyes: Reports systems reviewed and no addt'l complaints, except as documented ENT HEENT: Reports systems reviewed and no addt'l complaints, except as documented Cardiovascular Cardiovascular: Denies chest pain at rest, chest pain with activity, dyspnea at rest, dyspnea on exertion, edema, palpitations or paroxysmal nocturnal dyspnea Respiratory/Chest Respiratory/Chest: Denies dyspnea on exertion, productive cough, shortness of breath at rest or shortness of breath with exertion Gastrointestinal Gastrointestinal: Denies change in bowel habits, nausea, vomiting or weight changes Genitourinary Genitourinary: Denies difficulty urinating Musculoskeletal Musculoskeletal: Denies joint stiffness or muscle weakness Integumentary Integumentary: Denies lesions Neurologic Neurologic: Denies dizziness or syncope Psychiatric Psychiatric: Denies anxiety Endocrine Endocrinology: Denies excessive sweating or fatigue Hematologic/Lymphatic Hematologic/Lymphatic: Denies anemia Allergic/Immunologic Allergic/Immunologic: Denies seasonal rhinorrhea Physical Exam Const alert, oriented x3 and no apparent distress General Appearance: cooperative HEENT hearing grossly normal bilaterally Head and Scalp: atraumatic Eyes EOMs intact bilaterally Neck Neck Narrative: Tracheostomy in place General: normal visual inspection Chest inspection of chest normal and palpation of chest normal Resp normal respiratory effort Auscultation: clear to auscultation bilaterally Cardio S1 normal heart sound and S2 normal heart sound Jugular Venous Distention: JVD Rhythm: abnormal rhythm irregularly irregular GI normal to inspection, nondistended, normoactive bowel sounds Extremity normal capillary refill and no pedal edema Peripheral Pulses: Yes pulses 2+ throughout and femoral pulses present Skin no rashes or lesions noted Neuro oriented x3 and CN's II-XII intact bilaterally Psych Appearance: grossly normal and appropriate Risk Stratification Risk Stratification Applicable: No Objective Data Vital Signs: Vital Signs Temp Pulse Resp BP Pulse Ox O2 Del Method O2 Flow Rate 97.7 F L 120 H 25 H 96/65 100 Trach Collar 10 12/24/24 08:00 12/24/24 10:00 12/24/24 10:00 12/24/24 10:00 12/24/24 10:00 12/24/24 10:00 12/24/24 08:02 FiO2 30 12/24/24 10:00 Oxygen Flow Rate (L/min) 10 Oxygen Delivery Method Trach Collar Weight: 148 lb 2.41 oz Body Mass Index (BMI) 21.9 Intake & Output: Intake and Output for Last 24 Hours 12/22/24 12/23/24 12/24/24 23:59 23:59 23:59 Intake Total 638 / 638 1820 / 1820 2314.5 / 2314.5 Output Total 1075 / 1275 1075 / 1275 650 / 650 Balance -437 / -637 745 / 545 1664.5 / 1664.5 Lab / Micro Data 12/24/24 00:25 12/24/24 00:25 Labs: Laboratory Results - last 24 hr 12/23/24 12:30: Hgb 7.9 L, Hct 24.1 L 12/24/24 00:25: WBC 7.2, RBC 2.81 L, Hgb 8.0 L, Hct 24.6 L, MCV 87.5, MCH 28.5, MCHC 32.5, RDW Std Deviation 50.4 H, RDW Coeff of Elidia 15.8 H, Plt Count 210, MPV 9.4, Immature Gran % (Auto) 0.300, Neut % (Auto) 75.2 H, Lymph % (Auto) 8.2 L, M lizy % (Auto) 12.4 H, Eos % (Auto) 3.6, Baso % (Auto) 0.3, Absolute Neuts (auto) 5.4, Absolute Lymphs (auto) 0.59 L, Nucleated RBC % 0, Sodium 133, Potassium 3.8, Chloride 99, Carbon Dioxide 24.8, Anion Gap 9, BUN 15, Creatinine 0.48 L, Estim Creat Clear Calc 80.86, Est GFR (MDRD) Non-Af 112, BUN/Creatinine Ratio 30.6 H, Glucose 112 H, Calcium 8.7 Rhythm Strip Rhythm Strip: Sinus Tach Rate: 111 Ectopy: None Cardiology Labs/Tests 12/23/24 12:30: Hgb 7.9 L, Hct 24.1 L 12/24/24 00:25: WBC 7.2, RBC 2.81 L, Hgb 8.0 L, Hct 24.6 L, MCV 87.5, MCH 28.5, MCHC 32.5, Plt Count 210, MPV 9.4, Immature Gran % (Auto) 0.300, Neut % (Auto) 75.2 H, Lymph % (Auto) 8.2 L, Harmon % (Auto) 12.4 H, Eos % (Auto) 3.6, Baso % (Auto) 0.3, Absolute Neuts (auto) 5.4, Nucleated RBC % 0, Sodium 133, Potassium 3.8, Chloride 99, Carbon Dioxide 24.8, Anion Gap 9, BUN 15, Creatinine 0.48 L, Est GFR (MDRD) Non-Af 112, BUN/Creatinine Ratio 30.6 H, Glucose 112 H, Calcium 8.7 Rhythm: EKG: ECHO: Stress Test: Cardiac Cath: PCI: CT Surgery: Holter monitor: EPS: PPM: CXR: Chest CT Scan:
[2024-12-24] MEDS: Amiodarone 360 MG in Dextrose 5% Viaflo Bag 192.8 ML 16.7 MG CONT INF (11:25)
[2024-12-24] MEDS: Digoxin 250 MCG/ML Ampul IV (11:56)
--- NOTE | 2024-12-24 13:33 | PN_ITS ---
Subjective Subjective Patient seen and examined. He went into afib overnight and had to be started on amiodarone drip. He had no complaints at time of my review. However, he still remains in afib with RVR. He has trach collar in situ. He has not had any more bleeding from the trach site again. Hb today is 8. Objective Data Objective Data Vital Signs: Vital Signs Temp Pulse Resp BP Pulse Ox O2 Del Method O2 Flow Rate 97.7 F L 72 20 H 100/70 99 Trach Collar 10 12/24/24 12:00 12/24/24 13:00 12/24/24 13:00 12/24/24 13:00 12/24/24 13:00 12/24/24 13:00 12/24/24 08:02 FiO2 30 12/24/24 13:00 Oxygen Flow Rate (L/min) 10 Oxygen Delivery Method Trach Collar Weight: 148 lb 2.41 oz Body Mass Index (BMI) 21.9 Intake & Output: Intake and Output for Last 24 Hours 12/22/24 12/23/24 12/24/24 23:59 23:59 23:59 Intake Total 638 / 638 1820 / 1820 2586.75 / 2586.75 Output Total 1075 / 1275 1075 / 1275 900 / 900 Balance -437 / -637 745 / 545 1686.75 / 1686.75 Lab / Micro Data 12/24/24 00:25 12/24/24 00:25 Labs: Laboratory Results - last 24 hr 12/24/24 00:25: WBC 7.2, RBC 2.81 L, Hgb 8.0 L, Hct 24.6 L, MCV 87.5, MCH 28.5, MCHC 32.5, RDW Std Deviation 50.4 H, RDW Coeff of Elidia 15.8 H, Plt Count 210, MPV 9.4, Immature Gran % (Auto) 0.300, Neut % (Auto) 75.2 H, Lymph % (Auto) 8.2 L, M lizy % (Auto) 12.4 H, Eos % (Auto) 3.6, Baso % (Auto) 0.3, Absolute Neuts (auto) 5.4, Absolute Lymphs (auto) 0.59 L, Nucleated RBC % 0, Sodium 133, Potassium 3.8, Chloride 99, Carbon Dioxide 24.8, Anion Gap 9, BUN 15, Creatinine 0.48 L, Estim Creat Clear Calc 80.86, Est GFR (MDRD) Non-Af 112, BUN/Creatinine Ratio 30.6 H, Glucose 112 H, Calcium 8.7 Radiography Diagnostic Testing: Radiology Impression Echocardiogram 12/24/24 09:54 Interpretation Summary Normal LV size. The left ventricular ejection fraction is 50 %. Contrast injection was performed. The study was technically difficult. The study was technically limited. Ordering Physician: Priscilla Chris Referring Physician: Juan Rai Performed By: Letty Sanchez, BRIGIDA, RVT Rhythm Strip Rhythm Strip: Sinus Tach Rate: 111 Ectopy: None Physical Exam Const alert and oriented x3 Constitutional Narrative: frail General Appearance: cooperative HEENT normocephalic, head/scalp atraumatic, moist oral mucous membranes and oropharynx normal Eyes PERRL Neck no lymphadenopathy and supple Resp Resp Narrative: mildly diminished breath sounds bibasally, no wheezes or crackes. on oxygen via trach at FiO2 of 30% and 10L/min of oxygen. Cardio S1 normal heart sound, S2 normal heart sound and no murmurs Cardio Narrative: afib with RVR GI normal to inspection, nondistended, normoactive bowel sounds, soft to palpation, non-tender and non-distended GI Narrative: PEG tube in situ Extremity normal capillary refill General Extremity: no tenderness to palpation of joints or extremities Skin General Skin Exam: no breakdown Neuro CN's II-XII intact bilaterally, no focal motor deficits and no sensory deficits noted Psych thought process normal, cooperative and affect normal Appearance: appropriate Assessment & Plan Assessment/Plan (1) Tracheostomy hemorrhage: PLAN: Plan # #Tracheostomy hemorrhage * Patient has trach in place in light of his history of throat cancer. He is on Eliquis for A-fib. * Started bleeding from the trach. He was admitted to the ICU. Hemoglobin is 8.7. He had received Kcentra on admission due to the continued bleeding. Aspirin also held. * He was also started on IV Protonix due to concern that this may be an upper GI bleed though this seems unlikely as when his PEG tube was aspirated below threshold there was no blood. * Bleeding has stopped. His Hb did drop today to 7.7 today, down from 8.7. * I did discuss with the patient the risk of continuing the blood thinner in light of the bleeding. I counseled him that he does have an increased risk of stroke given stop the blood thinner due to his history of A-fib. Patient however is agreeable to stopping the A-fib due to the increased risk of bleeding. #Afib with RVR * carvedilol had been on hold due to borderline low blood pressure. * He went into afib with RVR overnight. Was started on amiodarone. * Eliquis discontinued due to bleeding from trach. * cardiology consulted. Patient given a dose of IV digoxin 0.25g x 1. * management as per cardiology. * 2D echo showed EF of 50% and normal LV size and systolic function. * #Chronic respiratory failure in the setting of history of throat cancer with trach: * On oxygen via trach collar. * Breathing treatments with bronchodilators. * Titrate oxygen to maintain saturation above 90%. #History of heart failure with reduced ejection fraction: Has known EF of 30%. Currently not in heart failure exacerbation. #Depression and anxiety: On Wellbutrin #Chronic hyponatremia: Sodium at baseline. On oral salt tablets. Will continue. #History of laryngeal cancer, s/p tracheostomy. CT showed bilateral lymph nodes which have increased in size since 2023. Will need follow-up with oncology on outpatient basis DVT prophylaxis: SCDs Disposition: plan for discharged held as he now as afib with RVR. Charges/Coding Visit Charges Inpatient E&M: 82380 [facility] Hosp L3
--- NOTE | 2024-12-24 15:45 | EKG12_ITS ---
Test Reason : atrial fib Blood Pressure : */* mmHG Vent. Rate : 139 BPM Atrial Rate : 288 BPM P-R Int : * ms QRS Dur : 88 ms QT Int : 316 ms P-R-T Axes : * 8 89 degrees QTcB Int : 480 ms Atrial flutter with variable A-V block Nonspecific ST and T wave abnormality Abnormal ECG When compared with ECG of 21-Dec-2024 12:40, Atrial flutter has replaced Sinus rhythm QRS axis Shifted right Confirmed by SENIA REYNOLDS, NAILA ([id number]), field map editor ALEXANDRIA ROSS ([id number]) on 12/27/2024 1:10:04 PM Referred By: Eboni Calvillo Confirmed By: NAILA CONN MD
--- NOTE | 2024-12-24 16:07 | NURSING ---
Pt noted to be in NSR. 1545 EKG done and sent to Dr. Chris [address] Dean on the patients rhythm change. His recommendations are to continue current amio drip until tomorrow morning when he will switch in over.
[2024-12-24] MEDS: Pantoprazole Sodium 40 MG in 0.9% Normal Saline (100mL MB+) 100 ML 330 MG IV (21:07)
[2024-12-25] VITALS (17 sets, daily range): BP systolic 99–119; BP diastolic 50–77; PULSE 89–118; RESP 16–29; TEMP 36.2–37.2; O2SAT 96–100; BMI 22.1
[2024-12-25] MEDS: Amiodarone 360 MG in Dextrose 5% Viaflo Bag 192.8 ML 16.7 MG CONT INF (00:20)
[2024-12-25 02:57] LABS: Hematocrit 25.3 % (40-54); Hemoglobin 8.6 g/dL (13.0-16.5); Immature Granulocytes Count 0.050 X10^3/uL (0.0-0.0); Mean Corp Hgb Conc 34.0 g/dL (32-36); Mean Corpuscular Volume 85.8 fL (80-94); Mean Platelet Vol. 9.6 fl (6.2-12.0); NRBC Flagged by Analyzer 0 % (0-5); POSITIVE DIFFERENTIAL YES; Platelet Count 238 K/mm3 (150-450); RBC Distribution Width CV 15.9 % (11.6-14.6); RBC Distribution Width SD 49.1 fl (35.1-43.9); Red Blood Count 2.95 M/mm3 (4.6-6.2); White Blood Count 13.3 K/mm3 (4.4-11.0)
[2024-12-25 03:41] LABS: Anion Gap 9 (5-15); BUN 16 mg/dL (4-19); BUN/Creat Ratio 33.0 RATIO (10-20); Calcium,Total 8.4 mg/dL (7.6-11.0); Carbon Dioxide 24.8 mmol/L (21.0-32.0); Chloride 98 mmol/L (98-108); Estimated Creatinine Clearance 83.82 ml/min (50-250); Glucose 126 mg/dL (70-99); Potassium 4.0 mmol/L (3.3-5.1)
[2024-12-25] MEDS: Pantoprazole Sodium 40 MG in 0.9% Normal Saline (100mL MB+) 100 ML 300 MG IV ×2 (08:55→21:28)
[2024-12-25] MEDS: Potassium Chloride Oral Soln 20 MEQ/15 ML UDC 15 MEQ GT (08:55)
[2024-12-25] MEDS: Senna/Docusate Sodium 1 Tablet 2 TABLET GT ×2 (08:56→21:32)
[2024-12-25] MEDS: Thiamine Hydrochloride 100 MG Tablet GT (08:57)
--- NOTE | 2024-12-25 09:09 | PN_ITS ---
Subjective Subjective Patient seen and examined. He had no complaints and had an uneventful night. Review of systems is otherwise negative. Objective Data Objective Data Vital Signs: Vital Signs Temp Pulse Resp BP Pulse Ox O2 Del Method O2 Flow Rate 98.6 F 101 H 24 H 116/73 100 Room Air 10 12/25/24 00:00 12/25/24 08:00 12/25/24 08:00 12/25/24 08:00 12/25/24 08:00 12/25/24 08:00 12/24/24 16:00 FiO2 30 12/25/24 07:00 Oxygen Flow Rate (L/min) 10 Oxygen Delivery Method Room Air Weight: 149 lb 14.629 oz Body Mass Index (BMI) 22.1 Intake & Output: Intake and Output for Last 24 Hours 12/23/24 12/24/24 12/25/24 23:59 23:59 23:59 Intake Total 1820 / 1820 4088.75 / 4088.75 360 / 360 Output Total 1075 / 1275 1500 / 1500 Balance 745 / 545 2588.75 / 2588.75 360 / 360 Lab / Micro Data 12/25/24 02:52 12/25/24 02:52 Labs: Laboratory Results - last 24 hr 12/25/24 02:52: WBC 13.3 H, RBC 2.95 L, Hgb 8.6 L, Hct 25.3 L, MCV 85.8, MCH 29.2, MCHC 34.0, RDW Std Deviation 49.1 H, RDW Coeff of Elidia 15.9 H, Plt Count 238, MPV 9.6, Immature Gran % (Auto) 0.400, Neut % (Auto) 88.8 H, Lymph % (Auto) 3.2 L, [place] % (Auto) 7.3, Eos % (Auto) 0.2, Baso % (Auto) 0.1, Absolute Neuts (auto) 11.9 H, Absolute Lymphs (auto) 0.42 L, Nucleated RBC % 0, Sodium 131 L, Potassium 4.0, Chloride 98, Carbon Dioxide 24.8, Anion Gap 9, BUN 16, Creatinine 0.47 L, Estim Creat Clear Calc 83.82, Est GFR (MDRD) Non-Af 113, BUN/Creatinine Ratio 33.0 H, Glucose 126 H, Calcium 8.4 Radiography Diagnostic Testing: Radiology Impression Echocardiogram 12/24/24 09:54 Interpretation Summary Normal LV size. The left ventricular ejection fraction is 50 %. Contrast injection was performed. The study was technically difficult. The study was technically limited. Ordering Physician: Priscilla Chris Referring Physician: Juan Rai Performed By: Letty Sanchez, BRIGIDA, RVT Rhythm Strip Rhythm Strip: Sinus Tach Rate: 111 Ectopy: None Physical Exam Const alert and oriented x3 Constitutional Narrative: frail General Appearance: cooperative HEENT normocephalic, head/scalp atraumatic, moist oral mucous membranes and oropharynx normal Eyes PERRL Neck no lymphadenopathy and supple Resp Resp Narrative: mildly diminished breath sounds bibasally, no wheezes or crackes. on oxygen via trach at FiO2 of 30% and 10L/min of oxygen. Cardio S1 normal heart sound, S2 normal heart sound and no murmurs Cardio Narrative: afib, rate still poorly controlled. GI normal to inspection, nondistended, normoactive bowel sounds, soft to palpation, non-tender and non-distended GI Narrative: PEG tube in situ Extremity normal capillary refill General Extremity: no tenderness to palpation of joints or extremities Skin General Skin Exam: no breakdown Neuro CN's II-XII intact bilaterally, no focal motor deficits and no sensory deficits noted Motor Exam: general weakness Psych thought process normal, cooperative and affect normal Appearance: appropriate Assessment & Plan Assessment/Plan (1) Tracheostomy hemorrhage: PLAN: Plan # #Tracheostomy hemorrhage * Patient has trach in place in light of his history of throat cancer. He is on Eliquis for A-fib. * Started bleeding from the trach. He was admitted to the ICU. Hemoglobin is 8.7. He had received Kcentra on admission due to the continued bleeding. Aspirin also held. * He was also started on IV Protonix due to concern that this may be an upper GI bleed though this seems unlikely as when his PEG tube was aspirated below threshold there was no blood. * Bleeding has stopped.Hb today is 8.6. * I did discuss with the patient the risk of continuing the blood thinner in light of the bleeding. I counseled him that he does have an increased risk of stroke given stop the blood thinner due to his history of A-fib. Patient however is agreeable to stopping the A-fib due to the increased risk of bleeding. #Afib with RVR * carvedilol had been on hold due to borderline low blood pressure. * He went into afib with RVR. Was started on amiodarone drip. * Eliquis discontinued due to bleeding from trach. * cardiology consulted. Patient given a dose of IV digoxin 0.25g x 1. * management as per cardiology. * 2D echo showed EF of 50% and normal LV size and systolic function. * has converted to normal sinus rhythm. To be switched to PO amiodarone per cardiology. * #Chronic respiratory failure in the setting of history of throat cancer with trach: * On oxygen via trach collar. * Breathing treatments with bronchodilators. * Titrate oxygen to maintain saturation above 90%. #History of heart failure with reduced ejection fraction: * Has known EF of 30%. Currently not in heart failure exacerbation. #Positive stool for occult blood * FOBT was positive. This is not surprising in light of the bleeding from the trach. Hb has stabilised so will hold off on any further workup for now as it can be explained by bleeding from the trach he had. Eliquis is now on hold. He has not had any bleeding from the PEG tube or had any dark stools * Can therefore follow up with GI on outpatient basis. * #Depression and anxiety: On Wellbutrin #Chronic hyponatremia: Sodium at baseline. is 131 today. On oral salt tablets. Will continue. #History of laryngeal cancer, s/p tracheostomy. * CT showed bilateral lymph nodes which have increased in size since 2023. Will need follow-up with oncology on outpatient basis DVT prophylaxis: SCDs Disposition: dc to SNF once medically stable. Charges/Coding Visit Charges Inpatient E&M: 36652 Subs Hosp L2
--- NOTE | 2024-12-25 09:40 | PN.CARD_ITS ---
Subjective Subjective Patient seen and evaluated. Doing better now. Converted back to sinus rhythm. Objective Data Vital Signs: Vital Signs Temp Pulse Resp BP Pulse Ox O2 Del Method O2 Flow Rate 98.6 F 118 H 16 107/50 L 98 Trach Collar 10 12/25/24 00:00 12/25/24 09:00 12/25/24 09:00 12/25/24 09:00 12/25/24 09:00 12/25/24 09:15 12/24/24 16:00 FiO2 30 12/25/24 09:15 Oxygen Flow Rate (L/min) 10 Oxygen Delivery Method Trach Collar Weight: 149 lb 14.629 oz Body Mass Index (BMI) 22.1 Intake & Output: Intake and Output for Last 24 Hours 12/23/24 12/24/24 12/25/24 23:59 23:59 23:59 Intake Total 1820 / 1820 4088.75 / 4088.75 717.5 / 717.5 Output Total 1075 / 1275 1500 / 1500 Balance 745 / 545 2588.75 / 2588.75 717.5 / 717.5 Lab / Micro Data 12/25/24 02:52 12/25/24 02:52 Labs: Laboratory Results - last 24 hr 12/25/24 02:52: WBC 13.3 H, RBC 2.95 L, Hgb 8.6 L, Hct 25.3 L, MCV 85.8, MCH 29.2, MCHC 34.0, RDW Std Deviation 49.1 H, RDW Coeff of Elidia 15.9 H, Plt Count 238, MPV 9.6, Immature Gran % (Auto) 0.400, Neut % (Auto) 88.8 H, Lymph % (Auto) 3.2 L, [place] % (Auto) 7.3, Eos % (Auto) 0.2, Baso % (Auto) 0.1, Absolute Neuts (auto) 11.9 H, Absolute Lymphs (auto) 0.42 L, Nucleated RBC % 0, Sodium 131 L, Potassium 4.0, Chloride 98, Carbon Dioxide 24.8, Anion Gap 9, BUN 16, Creatinine 0.47 L, Estim Creat Clear Calc 83.82, Est GFR (MDRD) Non-Af 113, BUN/Creatinine Ratio 33.0 H, Glucose 126 H, Calcium 8.4 Micro: Microbiology 12/25/24 08:45 Stool Stool Occult Blood (ROBIN) - Final Occult Blood Positive Rhythm Strip Rhythm Strip: Sinus Tach Rate: 111 Ectopy: None Cardiology Labs/Tests 12/25/24 02:52: WBC 13.3 H, RBC 2.95 L, Hgb 8.6 L, Hct 25.3 L, MCV 85.8, MCH 29.2, MCHC 34.0, Plt Count 238, MPV 9.6, Immature Gran % (Auto) 0.400, Neut % (Auto) 88.8 H, Lymph % (Auto) 3.2 L, [place] % (Auto) 7.3, Eos % (Auto) 0.2, Baso % (Auto) 0.1, Absolute Neuts (auto) 11.9 H, Nucleated RBC % 0, Sodium 131 L, Potassium 4.0, Chloride 98, Carbon Dioxide 24.8, Anion Gap 9, BUN 16, Creatinine 0.47 L, Est GFR (MDRD) Non-Af 113, BUN/Creatinine Ratio 33.0 H, Glucose 126 H, Calcium 8.4 Rhythm: EKG: ECHO: Stress Test: Cardiac Cath: PCI: CT Surgery: Holter monitor: EPS: PPM: CXR: Chest CT Scan: Radiography Diagnostic Testing: Radiology Impression Echocardiogram 12/24/24 09:54 Interpretation Summary Normal LV size. The left ventricular ejection fraction is 50 %. Contrast injection was performed. The study was technically difficult. The study was technically limited. Ordering Physician: Priscilla Chris Referring Physician: Juan Rai Performed By: Letty Sanchez, BRIGIDA, RVT Physical Exam Const alert, oriented x3 and no apparent distress General Appearance: cooperative HEENT hearing grossly normal bilaterally Head and Scalp: atraumatic Eyes EOMs intact bilaterally Neck Neck Narrative: Tracheostomy in place General: normal visual inspection Chest inspection of chest normal and palpation of chest normal Resp normal respiratory effort Auscultation: clear to auscultation bilaterally Cardio regular rate, S1 normal heart sound and S2 normal heart sound Jugular Venous Distention: JVD Rhythm: regular rhythm GI normal to inspection, nondistended, normoactive bowel sounds Extremity normal capillary refill and no pedal edema Peripheral Pulses: Yes pulses 2+ throughout and femoral pulses present Skin no rashes or lesions noted Neuro oriented x3 and CN's II-XII intact bilaterally Psych Appearance: grossly normal and appropriate Assessment & Plan Assessment/Plan (1) Atrial fibrillation: PLAN: He does have atrial fibrillation with a rapid ventricular response. He has converted to sinus rhythm. Recommendation is to switch him from intravenous amiodarone to oral amiodarone Add low-dose metoprolol Continue Eliquis Echocardiogram done demonstrated an ejection fraction of 50%. 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 Will continue to optimize his guideline directed medical care after his heart rate has improved. Above discussed with hospitalist Thank you for allowing me to participate in the care of your patient. Please don't hesitate to call if any issues arise.
[2024-12-25] MEDS: 0.9% Saline Lock 10 ML Syringe IV (21:25)
[2024-12-26] VITALS (11 sets, daily range): BP systolic 89–120; BP diastolic 62–84; PULSE 68–117; RESP 16–20; TEMP 36.3–37.6; O2SAT 95–100; BMI 22.0
[2024-12-26] MEDS: Jevity 1.5 1,000 ML 40 ML GT (01:02)
[2024-12-26 05:38] LABS: Hematocrit 25.3 % (40-54); Hemoglobin 8.4 g/dL (13.0-16.5); Immature Granulocytes Count 0.080 X10^3/uL (0.0-0.0); Mean Corp Hgb Conc 33.2 g/dL (32-36); Mean Corpuscular Volume 87.2 fL (80-94); Mean Platelet Vol. 9.4 fl (6.2-12.0); NRBC Flagged by Analyzer 0 % (0-5); POSITIVE DIFFERENTIAL YES; Platelet Count 254 K/mm3 (150-450); RBC Distribution Width CV 16.2 % (11.6-14.6); RBC Distribution Width SD 50.9 fl (35.1-43.9); Red Blood Count 2.90 M/mm3 (4.6-6.2); White Blood Count 15.1 K/mm3 (4.4-11.0)
[2024-12-26 06:03] LABS: Anion Gap 8 (5-15); BUN 19 mg/dL (4-19); BUN/Creat Ratio 35.0 RATIO (10-20); Calcium,Total 8.3 mg/dL (7.6-11.0); Carbon Dioxide 26.7 mmol/L (21.0-32.0); Chloride 96 mmol/L (98-108); Estimated Creatinine Clearance 83.20 ml/min (50-250); Glucose 138 mg/dL (70-99); Potassium 4.0 mmol/L (3.3-5.1)
--- NOTE | 2024-12-26 07:52 | PN.CARD_ITS ---
Subjective Subjective Patient seen and evaluated. Appears to be stable Objective Data Vital Signs: Vital Signs Temp Pulse Resp BP Pulse Ox O2 Del Method O2 Flow Rate 97.3 F L 76 16 104/62 95 Trach Collar 10 12/26/24 06:16 12/26/24 07:16 12/26/24 07:16 12/26/24 06:16 12/26/24 07:16 12/26/24 07:16 12/26/24 07:16 FiO2 30 12/26/24 07:16 Oxygen Flow Rate (L/min) 10 Oxygen Delivery Method Trach Collar Weight: 148 lb 12.992 oz Body Mass Index (BMI) 22.0 Intake & Output: Intake and Output for Last 24 Hours 12/24/24 12/25/24 12/26/24 23:59 23:59 23:59 Intake Total 4088.75 / 4088.75 1375.0 / 1375.0 Output Total 1500 / 1500 300 / 300 200 / 200 Balance 2588.75 / 2588.75 1075.0 / 1075.0 -200 / -200 Lab / Micro Data 12/26/24 05:29 12/26/24 05:29 Labs: Laboratory Results - last 24 hr 12/26/24 05:29: WBC 15.1 H, RBC 2.90 L, Hgb 8.4 L, Hct 25.3 L, MCV 87.2, MCH 29.0, MCHC 33.2, RDW Std Deviation 50.9 H, RDW Coeff of Elidia 16.2 H, Plt Count 254, MPV 9.4, Immature Gran % (Auto) 0.500, Neut % (Auto) 86.7 H, Lymph % (Auto) 3.8 L, [place] % (Auto) 8.2, Eos % (Auto) 0.7, Baso % (Auto) 0.1, Absolute Neuts (auto) 13.1 H, Absolute Lymphs (auto) 0.57 L, Nucleated RBC % 0, Sodium 131 L, Potassium 4.0, Chloride 96 L, Carbon Dioxide 26.7, Anion Gap 8, BUN 19, C reatinine 0.53 L, Estim Creat Clear Calc 83.20, Est GFR (MDRD) Non-Af 109, B UN/Creatinine Ratio 35.0 H, Glucose 138 H, Calcium 8.3 Micro: Microbiology 12/25/24 08:45 Stool Stool Occult Blood (ROBIN) - Final Occult Blood Positive Rhythm Strip Rhythm Strip: Sinus Tach Rate: 111 Ectopy: None Cardiology Labs/Tests 12/26/24 05:29: WBC 15.1 H, RBC 2.90 L, Hgb 8.4 L, Hct 25.3 L, MCV 87.2, MCH 29.0, MCHC 33.2, Plt Count 254, MPV 9.4, Immature Gran % (Auto) 0.500, Neut % (Auto) 86.7 H, Lymph % (Auto) 3.8 L, [place] % (Auto) 8.2, Eos % (Auto) 0.7, Baso % (Auto) 0.1, Absolute Neuts (auto) 13.1 H, Nucleated RBC % 0, Sodium 131 L, Potassium 4.0, Chloride 96 L, Carbon Dioxide 26.7, Anion Gap 8, BUN 19, C reatinine 0.53 L, Est GFR (MDRD) Non-Af 109, BUN/Creatinine Ratio 35.0 H, G lucose 138 H, Calcium 8.3 Rhythm: EKG: ECHO: Stress Test: Cardiac Cath: PCI: CT Surgery: Holter monitor: EPS: PPM: CXR: Chest CT Scan: Physical Exam Const alert, oriented x3 and no apparent distress General Appearance: cooperative HEENT hearing grossly normal bilaterally Head and Scalp: atraumatic Eyes EOMs intact bilaterally Neck Neck Narrative: Tracheostomy in place General: normal visual inspection Chest inspection of chest normal and palpation of chest normal Resp normal respiratory effort Auscultation: clear to auscultation bilaterally Cardio regular rate, S1 normal heart sound and S2 normal heart sound Jugular Venous Distention: JVD Rhythm: regular rhythm GI normal to inspection, nondistended, normoactive bowel sounds Extremity normal capillary refill and no pedal edema Peripheral Pulses: Yes pulses 2+ throughout and femoral pulses present Skin no rashes or lesions noted Neuro oriented x3 and CN's II-XII intact bilaterally Psych Appearance: grossly normal and appropriate Assessment & Plan Assessment/Plan (1) Atrial fibrillation: PLAN: He does have atrial fibrillation with a rapid ventricular response. He has converted to sinus rhythm. Recommendation is to continue oral amiodarone Add low-dose metoprolol Continue Eliquis Echocardiogram done demonstrated an ejection fraction of 50%. 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 Will continue to optimize his guideline directed medical care after his heart rate has improved. Above discussed with hospitalist Thank you for allowing me to participate in the care of your patient. Please don't hesitate to call if any issues arise.
[2024-12-26] MEDS: Potassium Chloride Oral Soln 20 MEQ/15 ML UDC 15 MEQ GT (09:44)
[2024-12-26] MEDS: Senna/Docusate Sodium 1 Tablet 2 TABLET GT ×2 (09:44→23:20)
[2024-12-26] MEDS: Thiamine Hydrochloride 100 MG Tablet GT (09:45)
[2024-12-26] MEDS: 0.9% Saline Lock 10 ML Syringe IV ×2 (09:50→21:58)
[2024-12-26] MEDS: Pantoprazole Sodium 40 MG in 0.9% Normal Saline (100mL MB+) 100 ML 300 MG IV ×2 (09:56→23:33)
--- NOTE | 2024-12-26 10:30 | PN_ITS ---
Subjective Subjective Patient seen and examined. He had no active complaints. Heart rate has improved and he is now on oral amiodarone. Patient's WBC has however trended up to 15 today. He denies any burning with urination or any cough or shortness of breath. Review of systems otherwise negative. Objective Data Objective Data Vital Signs: Vital Signs Temp Pulse Resp BP Pulse Ox O2 Del Method O2 Flow Rate 98.3 F 92 16 89/64 L 97 Trach Collar 10 12/26/24 09:40 12/26/24 09:40 12/26/24 09:40 12/26/24 09:46 12/26/24 09:40 12/26/24 09:40 12/26/24 09:40 FiO2 30 12/26/24 09:40 Oxygen Flow Rate (L/min) 10 Oxygen Delivery Method Trach Collar Weight: 148 lb 12.992 oz Body Mass Index (BMI) 22.0 Intake & Output: Intake and Output for Last 24 Hours 12/24/24 12/25/24 12/26/24 23:59 23:59 23:59 Intake Total 4088.75 / 4088.75 1375.0 / 1375.0 160 / 160 Output Total 1500 / 1500 300 / 300 200 / 200 Balance 2588.75 / 2588.75 1075.0 / 1075.0 -40 / -40 Lab / Micro Data 12/26/24 05:29 12/26/24 05:29 Labs: Laboratory Results - last 24 hr 12/26/24 05:29: WBC 15.1 H, RBC 2.90 L, Hgb 8.4 L, Hct 25.3 L, MCV 87.2, MCH 29.0, MCHC 33.2, RDW Std Deviation 50.9 H, RDW Coeff of Elidia 16.2 H, Plt Count 254, MPV 9.4, Immature Gran % (Auto) 0.500, Neut % (Auto) 86.7 H, Lymph % (Auto) 3.8 L, [place] % (Auto) 8.2, Eos % (Auto) 0.7, Baso % (Auto) 0.1, Absolute Neuts (auto) 13.1 H, Absolute Lymphs (auto) 0.57 L, Nucleated RBC % 0, Sodium 131 L, Potassium 4.0, Chloride 96 L, Carbon Dioxide 26.7, Anion Gap 8, BUN 19, C reatinine 0.53 L, Estim Creat Clear Calc 83.20, Est GFR (MDRD) Non-Af 109, B UN/Creatinine Ratio 35.0 H, Glucose 138 H, Calcium 8.3 Micro: Microbiology 12/25/24 08:45 Stool Stool Occult Blood (ROBIN) - Final Occult Blood Positive Rhythm Strip Rhythm Strip: Sinus Tach Rate: 111 Ectopy: None Physical Exam Const alert and oriented x3 Constitutional Narrative: frail General Appearance: cooperative HEENT normocephalic, head/scalp atraumatic, moist oral mucous membranes and oropharynx normal Eyes PERRL Neck no lymphadenopathy and supple Resp Resp Narrative: mildly diminished breath sounds bibasally, no wheezes, few crackles bilaterally. on oxygen via trach at FiO2 of 30% and 10L/min of oxygen. Cardio regular rate, regular rhythm, S1 normal heart sound, S2 normal heart sound and no murmurs Cardio Narrative: afib with RVR has resolved. GI normal to inspection, nondistended, normoactive bowel sounds, soft to palpation, non-tender and non-distended GI Narrative: PEG tube in situ Extremity normal capillary refill General Extremity: no tenderness to palpation of joints or extremities Skin General Skin Exam: no breakdown Neuro CN's II-XII intact bilaterally, no focal motor deficits and no sensory deficits noted Motor Exam: general weakness Psych thought process normal, cooperative and affect normal Appearance: appropriate Assessment & Plan Assessment/Plan (1) Tracheostomy hemorrhage: PLAN: Plan # #Tracheostomy hemorrhage * Patient has trach in place in light of his history of throat cancer. He is on Eliquis for A-fib. * Started bleeding from the trach. He was admitted to the ICU. Hemoglobin is 8.7. He had received Kcentra on admission due to the continued bleeding. Aspirin also held. * He was also started on IV Protonix due to concern that this may be an upper GI bleed though this seems unlikely as when his PEG tube was aspirated below threshold there was no blood. * Bleeding has stopped.Hb has remained stable and is 8.4 today * I did discuss with the patient the risk of continuing the blood thinner in light of the bleeding. I counseled him that he does have an increased risk of stroke given stop the blood thinner due to his history of A-fib. Patient however is agreeable to stopping the A-fib due to the increased risk of bleeding. #Leukocytosis: WBC is 15 and is mainly neutrophilic predominance. No clear source of infection. Will check urinalysis. #Afib * carvedilol had been on hold due to borderline low blood pressure. * He went into afib with RVR. Was started on amiodarone drip. * Eliquis discontinued due to bleeding from trach. * cardiology consulted. Patient given a dose of IV digoxin 0.25g x 1. * management as per cardiology. * 2D echo showed EF of 50% and normal LV size and systolic function. * has converted to normal sinus rhythm. now on PO amiodarone. BP is running low, in the 80s systolic today. Will monitor closely and adjust amiodarone as needed. * #Chronic respiratory failure in the setting of history of throat cancer with trach: * On oxygen via trach collar. * Breathing treatments with bronchodilators. * Titrate oxygen to maintain saturation above 90%. #History of heart failure with reduced ejection fraction: * Has known EF of 30%. Currently not in heart failure exacerbation. #Positive stool for occult blood * FOBT was positive. This is not surprising in light of the bleeding from the trach. Hb has stabilised so will hold off on any further workup for now as it can be explained by bleeding from the trach he had. Eliquis is now on hold. He has not had any bleeding from the PEG tube or had any dark stools * Can therefore follow up with GI on outpatient basis. * #Depression and anxiety: On Wellbutrin #Chronic hyponatremia: Sodium at baseline. is still 131 today. On oral salt tablets. Will continue. #History of laryngeal cancer, s/p tracheostomy. * CT showed bilateral lymph nodes which have increased in size since 2023. Will need follow-up with oncology on outpatient basis DVT prophylaxis: SCDs Disposition: dc to SNF once medically stable. Charges/Coding Visit Charges Inpatient E&M: 19788 Subs Hosp L2
[2024-12-26 11:06] LABS: Mucous, Urine 0 SEEN /hpf (<or=2+); Red Blood Cells-Urine 0 SEEN /hpf (0-5)
[2024-12-26 11:10] LABS: Color, Urine Yellow (Yellow); Glucose, Dipstick Normal (Normal); Ketone-Dipstick Negative (Negative); Leukocyte Esterase-Dipstick Negative /ul (Negative); Nitrite-Dipstick Negative (Negative); Occult Blood-Urine Negative /ul (Negative); Protein-Dipstick 30 mg/dl (Negative); Specific Gravity, Urine 1.025 (1.002-1.030); Urine Bilirubin Dipstick Negative (Negative)
[2024-12-26 11:20] LABS: Calcium Oxalate Crystals Ur RARE /hpf (<or=2+); Squamous Epithelial Cells - UA 0-5 SEEN /hpf (0-5)
[2024-12-26] MEDS: Albuterol 2.5 MG/3 ML VIAL.NEB. INHALATION (12:29)
--- NOTE | 2024-12-26 15:37 | CHAPLAIN ---
Type of Pastoral Visit _x__ Initial Visit ___ Follow-up Visit ___ On-call Visit ___ General Patient Visit ___ Spiritual Assessment ___ Family Conference ___ Bereavement ___ Rapid Response ___ Code Blue ___ Other (describe below) Pastoral Care Referral From _x__ Patient ___ Family ___ Nurse ___ Physician ___ Optical Manufacturing Technician ___ Icer Hand ___ Other (describe below) Sacrament/Intervention ___ Active listening ___ Anointing ___ Yazidism ___ Bereavement ___ Communion ___ Diana exploration ___ ___ Life review _x__ Prayer ___ Reconciliation ___ Sacrament of Sick _x__ Supportive presence ___ Wedding ___ Other (describe below) Pastoral Comments patient awakens to his name; pt is not able to talk due to trach; pt does answer simple questions with nods and gives 'mouth responses' to questions; pt denies needs but agrees for a prayer
[2024-12-27] MEDS: 0.9% Saline Lock 10 ML Syringe IV ×2 (00:58→10:21)
[2024-12-27 03:00] VITALS: BP 105/51; PULSE 105; RESP 18; TEMP 36.8; O2SAT 100
[2024-12-27 03:10] VITALS: BMI 20.8
[2024-12-27 07:30] LABS: Hematocrit 26.1 % (40-54); Hemoglobin 8.7 g/dL (13.0-16.5); Immature Granulocytes Count 0.060 X10^3/uL (0.0-0.0); Mean Corp Hgb Conc 33.3 g/dL (32-36); Mean Corpuscular Volume 86.1 fL (80-94); Mean Platelet Vol. 10.1 fl (6.2-12.0); NRBC Flagged by Analyzer 0 % (0-5); Platelet Count 289 K/mm3 (150-450); RBC Distribution Width CV 16.1 % (11.6-14.6); RBC Distribution Width SD 49.9 fl (35.1-43.9); Red Blood Count 3.03 M/mm3 (4.6-6.2); White Blood Count 12.6 K/mm3 (4.4-11.0)
[2024-12-27 08:01] LABS: Anion Gap 11 (5-15); BUN 20 mg/dL (4-19); BUN/Creat Ratio 35.7 RATIO (10-20); Calcium,Total 8.7 mg/dL (7.6-11.0); Carbon Dioxide 25.2 mmol/L (21.0-32.0); Chloride 95 mmol/L (98-108); Estimated Creatinine Clearance 79.01 ml/min (50-250); Glucose 109 mg/dL (70-99); Potassium 4.4 mmol/L (3.3-5.1)
[2024-12-27 10:02] VITALS: BP 101/68; PULSE 98; RESP 18; TEMP 36.9; O2SAT 96
[2024-12-27] MEDS: Senna/Docusate Sodium 1 Tablet 2 TABLET GT (10:10)
[2024-12-27 10:11] VITALS: BP 101/68; PULSE 98
[2024-12-27] MEDS: Thiamine Hydrochloride 100 MG Tablet GT (10:11)
[2024-12-27] MEDS: Potassium Chloride Oral Soln 20 MEQ/15 ML UDC 15 MEQ GT (10:11)
[2024-12-27] MEDS: Pantoprazole Sodium 40 MG in 0.9% Normal Saline (100mL MB+) 100 ML 300 MG IV (10:23)
--- NOTE | 2024-12-27 11:52 | PCM.TXEXTCAR ---
Diet Diet Order/Speech Therapy: INPATIENT Hospital Diet / Speech Therapy Order(s) 12/22/24 07:22 NPO [Diet: Nothing Per Oral] Routine Orders/Code Status Enema Type: Fleetz Enema Frequency: Daily PRN Suppository Type: Dulcolax 10mg Suppository Frequency: Daily PRN DC O2, CPAP, BIPAP needs Home O2 Discharge instructions: Yes Type of respiratory needs?: Oxygen Oxygen frequency: Continuous Continuous oxygen liters per minute: trach with FIO2 30% Therapies Weight Bearing: Full weight bearing Problem/Diagnosis (1) Tracheostomy hemorrhage: Status: Acute Code(s): J95.01 - Hemorrhage from tracheostomy stoma Plan # #Tracheostomy hemorrhage Patient has trach in place in light of his history of throat cancer. He is on Eliquis for A-fib. Started bleeding from the trach. He was admitted to the ICU. Hemoglobin is 8.7. He had received Kcentra on admission due to the continued bleeding. Aspirin also held. He was also started on IV Protonix due to concern that this may be an upper GI bleed though this seems unlikely as when his PEG tube was aspirated below threshold there was no blood. Bleeding has stopped.Hb has remained stable and is 8.4 today I did discuss with the patient the risk of continuing the blood thinner in light of the bleeding. I counseled him that he does have an increased risk of stroke given stop the blood thinner due to his history of A-fib. Patient however is agreeable to stopping the A-fib due to the increased risk of bleeding. #Leukocytosis: WBC is 15 and is mainly neutrophilic predominance. No clear source of infection. Will check urinalysis. #Afib carvedilol had been on hold due to borderline low blood pressure. He went into afib with RVR. Was started on amiodarone drip. Eliquis discontinued due to bleeding from trach. cardiology consulted. Patient given a dose of IV digoxin 0.25g x 1. management as per cardiology. 2D echo showed EF of 50% and normal LV size and systolic function. has converted to normal sinus rhythm. now on PO amiodarone. BP is running low, in the 80s systolic today. Will monitor closely and adjust amiodarone as needed. #Chronic respiratory failure in the setting of history of throat cancer with trach: On oxygen via trach collar. Breathing treatments with bronchodilators. Titrate oxygen to maintain saturation above 90%. #History of heart failure with reduced ejection fraction: Has known EF of 30%. Currently not in heart failure exacerbation. #Positive stool for occult blood FOBT was positive. This is not surprising in light of the bleeding from the trach. Hb has stabilised so will hold off on any further workup for now as it can be explained by bleeding from the trach he had. Pedro is now on hold. He has not had any bleeding from the PEG tube or had any dark stools Can therefore follow up with GI on outpatient basis. #Depression and anxiety: On Wellbutrin #Chronic hyponatremia: Sodium at baseline. is still 131 today. On oral salt tablets. Will continue. #History of laryngeal cancer, s/p tracheostomy. CT showed bilateral lymph nodes which have increased in size since 2023. Will need follow-up with oncology on outpatient basis DVT prophylaxis: SCDs Disposition: dc to SNF once medically stable. Allergies/Procedures Done in Hospital Allergies No Known Allergies Allergy (Verified 10/03/24 10:53) Procedures: 2-D Echocardiogram Type of Care/Length of Stay Estimated LOS: More Than 30 Days Type of Care Needed: Intermediate Rehab Potential: Fair Prognosis: Fair Additional Orders/Day of Discharge Day of Discharge: 12/27/24 Dietary and Speech Recommendations Dietitian Recommendations/Changes: Continue Jevity 1.5Cal as toelrated with gradual increase to goal rate of 60mL/hr with 160mL water flush q4 hours to provide 2160kcal, 91.8 grams protein, and 2054mL water daily. Monitor TF tolerance. Maintain NPO with all nutrient needs met via PEG tube. Trend weights and monitor labs. Discharge Plan Admission Admit Date/Time: 12/21/24 16:10 Primary Reason for Your Visit: bleeding from trach, afib with RVR Attending Provider: Priscilla Chris Primary Care Provider: Juan Rai Consulting Providers: Nadya Ferrara; Syd Coleman; Fredy Dean Instructions Patient Instructions: AFib Dc Discharge Orders/Prescriptions Prescriptions: New amiodarone 200 mg Tablet 200 mg PO BID Qty: 60 2RF Rx Instructions: to take one tablet (200mg) twice daily x 1 month, then to follow with 200mg (one tablet) daily metoprolol tartrate 25 mg Tablet 12.5 mg PO BID Qty: 60 2RF Continued ipratropium-albuterol 0.5 mg-3 mg(2.5 mg base)/3 mL solution for nebulization 3 ml inhalation TID Qty: 180 11RF acetaminophen 325 mg tablet 325 mg PO Q4H PRN (Reason: fever or pain) bupropion HCl 75 mg tablet 150 mg PO BID multivitamin Tablet 1 tab PO QDAY ondansetron 4 mg tablet,disintegrating 4 mg PO Q6H sodium chloride 1,000 mg tablet,soluble 1,000 mg PO QDAY atorvastatin 40 mg Tablet 40 mg PO QHS Qty: 30 2RF guaifenesin [Adult Tussin Chest Congestion] 100 mg/5 mL liquid 600 mg PO Q6H PRN (Reason: congestion) 5 Days Qty: 500 11RF sennosides-docusate sodium [Stool Softener-Stimulant Laxat] 8.6-50 mg Tablet 2 tab PO BID Qty: 0 0RF aspirin 81 mg Tablet,Delayed Release (Dr/Ec) 81 mg PO BREAKFAST Qty: 0 0RF potassium chloride 20 mEq/15 mL liquid 15 meq feeding tube DAILY thiamine HCl (vitamin B1) [Vitamin B-1] 100 mg Tablet 100 mg PO DAILY Discontinued Eliquis 5 mg tablet 5 mg PO BID 30 Days Qty: 60 0RF carvedilol 3.125 mg Tablet 3.125 mg PO BID Qty: 0 0RF Referrals / Follow Up: Fredy Dean MD [Med Staff - Active Staff] - Within 1 Month Juan Rai DO [Primary Care Provider] - Within 1 Week Disposition Disposition (needs filled in before D/C Order can be placed): Long-Term Facility
--- NOTE | 2024-12-27 11:54 | DS.PCM_ITS ---
Providers Date of Admission: 12/21/24 Date of Discharge: 12/27/24 Primary Care Physician: Dr. Juan Rai, DO Consultations 12/21/24 17:11 Consult: ENT Routine Consulting Provider: Syd Coleman Reason for Consult: known pt, here w/ bleeding around trach, eliquis being reversed EMERGENT Consult: No MD Notified: Yes Date Notified: 12/21/24 Time Notified: 16:54 Method of Notification: Verbal Comments:: ED Spoke w/ [place], formal consult being placed 12/24/24 09:20 Consult: Cardiology Routine Consulting Provider: Fredy Dean Reason for Consult: afib with RVR EMERGENT Consult: No MD Notified: Yes Date Notified: 12/24/24 Time Notified: 09:20 Method of Notification: Text Reason For Visit: BLEEDING AROUND TRACH Diagnosis Discharge Diagnosis (1) Tracheostomy hemorrhage: Status: Acute Code(s): J95.01 - Hemorrhage from tracheostomy stoma Plan # #Tracheostomy hemorrhage * Patient has trach in place in light of his history of throat cancer. He is on Eliquis for A-fib. * Started bleeding from the trach. He was admitted to the ICU. Hemoglobin is 8.7. He had received Kcentra on admission due to the continued bleeding. Aspirin also held. * He was also started on IV Protonix due to concern that this may be an upper GI bleed though this seems unlikely as when his PEG tube was aspirated below threshold there was no blood. * Bleeding has stopped.Hb has remained stable and is 8.4 today * I did discuss with the patient the risk of continuing the blood thinner in light of the bleeding. I counseled him that he does have an increased risk of stroke given stop the blood thinner due to his history of A-fib. Patient however is agreeable to stopping the A-fib due to the increased risk of bleeding. #Leukocytosis: WBC is 15 and is mainly neutrophilic predominance. No clear source of infection. Will check urinalysis. #Afib * carvedilol had been on hold due to borderline low blood pressure. * He went into afib with RVR. Was started on amiodarone drip. * Eliquis discontinued due to bleeding from trach. * cardiology consulted. Patient given a dose of IV digoxin 0.25g x 1. * management as per cardiology. * 2D echo showed EF of 50% and normal LV size and systolic function. * has converted to normal sinus rhythm. now on PO amiodarone. BP is running low, in the 80s systolic today. Will monitor closely and adjust amiodarone as needed. * #Chronic respiratory failure in the setting of history of throat cancer with trach: * On oxygen via trach collar. * Breathing treatments with bronchodilators. * Titrate oxygen to maintain saturation above 90%. #History of heart failure with reduced ejection fraction: * Has known EF of 30%. Currently not in heart failure exacerbation. #Positive stool for occult blood * FOBT was positive. This is not surprising in light of the bleeding from the trach. Hb has stabilised so will hold off on any further workup for now as it can be explained by bleeding from the trach he had. Eliquis is now on hold. He has not had any bleeding from the PEG tube or had any dark stools * Can therefore follow up with GI on outpatient basis. * #Depression and anxiety: On Wellbutrin #Chronic hyponatremia: Sodium at baseline. is still 131 today. On oral salt tablets. Will continue. #History of laryngeal cancer, s/p tracheostomy. * CT showed bilateral lymph nodes which have increased in size since 2023. Will need follow-up with oncology on outpatient basis DVT prophylaxis: SCDs Disposition: dc to SNF once medically stable. Medications at Discharge Home Medications atorvastatin 40 mg tablet 40 mg PO QHS Cholesterol #30 tabs 10/15/23 aspirin 81 mg tablet,delayed release 81 mg PO BREAKFAST #0 tabs 11/26/23 sennosides 8.6 mg-docusate sodium 50 mg tablet (Stool Softener-Stimulant Laxative) 2 tab PO BID #0 tabs 11/26/23 guaifenesin 100 mg/5 mL oral liquid (Adult Tussin Chest Congestion) 600 mg (30 mL) PO Q6H PRN congestion 5 days #500 mL 03/09/24 ipratropium 0.5 mg-albuterol 3 mg (2.5 mg base)/3 mL nebulization soln 3 ml inhalation TID #180 mL 05/13/24 acetaminophen 325 mg tablet 325 mg PO Q4H PRN fever or pain 10/03/24 bupropion HCl 75 mg tablet 150 mg PO BID 10/03/24 multivitamin 1 tab PO QDAY 10/03/24 ondansetron 4 mg disintegrating tablet 4 mg PO Q6H 10/03/24 sodium chloride 1,000 mg soluble tablet 1,000 mg PO QDAY maintainence 10/03/24 potassium chloride 20 mEq/15 mL oral liquid 15 meq feeding tube DAILY SUPPLEMENT 12/21/24 thiamine HCl (vitamin B1) 100 mg tablet (Vitamin B-1) 100 mg PO DAILY replacement 12/21/24 amiodarone 200 mg tablet 200 mg PO BID #60 tabs 12/27/24 metoprolol tartrate 25 mg tablet 12.5 mg (1/2 x 25 mg) PO BID #60 tabs 12/27/24 Hospital Course Operations None Procedures 2-D Echocardiogram Summary of Care Provided Minutes Spent on Discharge: 65 Hospital Course: Patient is a 69-year-old male with a past medical history as outlined including 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 He woke up at 4 AM with bleeding and also noted blood in his mouth so he was brought in from the jail. His trach was last replaced on December 03, 2024. On admission hemoglobin was 11.7 and INR was 1.2. ENT was contacted and requested CT of the head and neck as well as CTA. CT of the chest showed no evidence of PE and CT of the soft tissue of the neck showed no obvious arterial blush or contrast extravasation to suggest active arterial bleed and noted bilateral level 1B lymph nodes which had increased in size since 2023. Patient continued to bleed so platelet concentrate was ordered for reversal of his Eliquis. He was admitted to the ICU to be managed for acute bleeding due to to Eliquis. Eliquis was discontinued. Patient's bleeding eventually stopped. His 2 focal blood did test positive but this was thought to be due to the blood that he had swallowed. #Open did trend down was around 7.6 but subsequently trended upwards and was around 8-8.5 and remained stable around that level. Hospital course was complicated by A-fib with RVR. Cardiology was consulted. He was started on amiodarone drip and also received digoxin and Cardizem during this admission. His heart rate subsequently converted to normal sinus rhythm so he was switched to p.o. amiodarone 200 mg twice daily per cardiology. Patient was counseled about risk versus benefit of being on Eliquis and he decided to stop taking the Eliquis due to the risk of bleeding. He did understand that he was at an increased risk of stroke. He remained stable and was discharged home on 12/27/2024. He was discharged on p.o. amiodarone 200 mg twice daily for 1 month and then to continue with 200 mg daily per cardiology. He was also discharged on metoprolol 12.5 mg twice daily. He did have 2D echo done during this admission which showed EF of 50% with normal left ventricular size and systolic function. He is follow-up with his primary care doctor and follow-up with cardiology and is also to follow-up with his ENT surgeon on outpatient basis. Patient seen and examined prior to discharge. He felt well and had no complaints. He had had an uneventful night and was lying comfortably in bed. Review of symptoms otherwise negative. Labs and vitals reviewed. Medication reviewed and reconciled. Physical Exam Const alert and oriented x3 Constitutional Narrative: frail General Appearance: cooperative and comfortable HEENT normocephalic, head/scalp atraumatic, hearing grossly normal bilaterally and moist oral mucous membranes Mouth: dry mucous membranes Eyes PERRL Neck Neck Narrative: trach in situ with trach collar Resp Resp Narrative: mildly diminished breath sounds bibasally, no wheezes, few crackles bilaterally. on oxygen via trach at FiO2 of 30% and 10L/min of oxygen. Cardio regular rate, regular rhythm, S1 normal heart sound, S2 normal heart sound and no murmurs Cardio Narrative: afib with RVR has resolved. GI normal to inspection, nondistended, normoactive bowel sounds, soft to palpation, non-tender and non-distended GI Narrative: PEG tube in situ Extremity normal capillary refill General Extremity: no tenderness to palpation of joints or extremities Skin General Skin Exam: no breakdown Neuro oriented x3, CN's II-XII intact bilaterally, moves all extremities, no focal motor deficits and no sensory deficits noted Motor Exam: general weakness Psych thought process normal, cooperative and affect normal Appearance: appropriate Weight / BMI Weight Weight: 141 lb 5.061 oz Body Mass Index (BMI) 20.8 ABG / Lab / Microbiology Data 12/27/24 06:28 12/27/24 06:28 Laboratory: Laboratory Results - last 24 hr 12/27/24 06:28: WBC 12.6 H, RBC 3.03 L, Hgb 8.7 L, Hct 26.1 L, MCV 86.1, MCH 28.7, MCHC 33.3, RDW Std Deviation 49.9 H, RDW Coeff of Elidia 16.1 H, Plt Count 289, MPV 10.1, Immature Gran % (Auto) 0.500, Neut % (Auto) 84.7 H, Lymph % (Auto) 4.9 L, [place] % (Auto) 9.6, Eos % (Auto) 0.1, Baso % (Auto) 0.2, Absolute Neuts (auto) 10.7 H, Absolute Lymphs (auto) 0.61 L, Nucleated RBC % 0, Sodium 131 L, Potassium 4.4, Chloride 95 L, Carbon Dioxide 25.2, Anion Gap 11, BUN 20 H , Creatinine 0.56 L, Estim Creat Clear Calc 79.01, Est GFR (MDRD) Non-Af 107, B UN/Creatinine Ratio 35.7 H, Glucose 109 H, Calcium 8.7 Microbiology: Microbiology 12/25/24 08:45 Stool Stool Occult Blood (ROBIN) - Final Occult Blood Positive D/C Instructions Discharge Activity: Return to Normal Activity Weight Bearing Status: Weight bearing as tolerated Call your doctor if you observe: Fever of 101 or Higher, Shortness of breath, Dizziness, Swelling in the ankles and Chest pain DC O2, CPAP, BIPAP Needs Home O2 Discharge instructions: Yes Type of respiratory needs?: Oxygen Oxygen frequency: Continuous Continuous oxygen liters per minute: trach with FIO2 30% DC home with Oxygen: Yes Home O2 MD Review: I have reviewed the oxygen testing, and the patient qualifies for home oxygen equipment and portability. The patient is mobile in the home and the community. Meaningful Use Info Meaningful Use Meaningful Use Diagnoses (Choose all that apply): None applicable Discharge Plan Admission Admit Date/Time: 12/21/24 16:10 Primary Reason for Your Visit: bleeding from trach, afib with RVR Attending Provider: Priscilla Chris Primary Care Provider: Juan Rai Consulting Providers: Nadya Ferrara; Syd Coleman; Fredy Dean Instructions Patient Instructions: AFib Dc Discharge Orders/Prescriptions Prescriptions: New amiodarone 200 mg Tablet 200 mg PO BID Qty: 60 2RF Rx Instructions: to take one tablet (200mg) twice daily x 1 month, then to follow with 200mg (one tablet) daily metoprolol tartrate 25 mg Tablet 12.5 mg PO BID Qty: 60 2RF Continued ipratropium-albuterol 0.5 mg-3 mg(2.5 mg base)/3 mL solution for nebulization 3 ml inhalation TID Qty: 180 11RF acetaminophen 325 mg tablet 325 mg PO Q4H PRN (Reason: fever or pain) bupropion HCl 75 mg tablet 150 mg PO BID multivitamin Tablet 1 tab PO QDAY ondansetron 4 mg tablet,disintegrating 4 mg PO Q6H sodium chloride 1,000 mg tablet,soluble 1,000 mg PO QDAY atorvastatin 40 mg Tablet 40 mg PO QHS Qty: 30 2RF guaifenesin [Adult Tussin Chest Congestion] 100 mg/5 mL liquid 600 mg PO Q6H PRN (Reason: congestion) 5 Days Qty: 500 11RF sennosides-docusate sodium [Stool Softener-Stimulant Laxat] 8.6-50 mg Tablet 2 tab PO BID Qty: 0 0RF aspirin 81 mg Tablet,Delayed Release (Dr/Ec) 81 mg PO BREAKFAST Qty: 0 0RF potassium chloride 20 mEq/15 mL liquid 15 meq feeding tube DAILY thiamine HCl (vitamin B1) [Vitamin B-1] 100 mg Tablet 100 mg PO DAILY Discontinued Eliquis 5 mg tablet 5 mg PO BID 30 Days Qty: 60 0RF carvedilol 3.125 mg Tablet 3.125 mg PO BID Qty: 0 0RF Referrals / Follow Up: Fredy Dean MD [Med Staff - Active Staff] - Within 1 Month Juan Rai DO [Primary Care Provider] - Within 1 Week Disposition Disposition (needs filled in before D/C Order can be placed): [facility] Facility Charges/Coding Visit Charges Inpatient E&M: 31491 Disch Hosp >30min
--- NOTE | 2024-12-27 13:07 | PHA.DC.MR.R ---
Pharmacy [place] Med Reconciliation Pharmacy Service has performed discharge medication reconciliation for this patient. The patient's discharge medication list was reviewed for discrepancies and discrepancies were resolved. Medications at Discharge Home Medications atorvastatin 40 mg tablet 40 mg PO QHS Cholesterol #30 tabs 10/15/23 aspirin 81 mg tablet,delayed release 81 mg PO BREAKFAST #0 tabs 11/26/23 sennosides 8.6 mg-docusate sodium 50 mg tablet (Stool Softener-Stimulant Laxative) 2 tab PO BID #0 tabs 11/26/23 guaifenesin 100 mg/5 mL oral liquid (Adult Tussin Chest Congestion) 600 mg (30 mL) PO Q6H PRN congestion 5 days #500 mL 03/09/24 ipratropium 0.5 mg-albuterol 3 mg (2.5 mg base)/3 mL nebulization soln 3 ml inhalation TID #180 mL 05/13/24 acetaminophen 325 mg tablet 325 mg PO Q4H PRN fever or pain 10/03/24 bupropion HCl 75 mg tablet 150 mg PO BID 10/03/24 multivitamin 1 tab PO QDAY 10/03/24 ondansetron 4 mg disintegrating tablet 4 mg PO Q6H 10/03/24 sodium chloride 1,000 mg soluble tablet 1,000 mg PO QDAY maintainence 10/03/24 potassium chloride 20 mEq/15 mL oral liquid 15 meq feeding tube DAILY SUPPLEMENT 12/21/24 thiamine HCl (vitamin B1) 100 mg tablet (Vitamin B-1) 100 mg PO DAILY replacement 12/21/24 amiodarone 200 mg tablet 200 mg PO BID #60 tabs 12/27/24 metoprolol tartrate 25 mg tablet 12.5 mg (1/2 x 25 mg) PO BID #60 tabs 12/27/24
--- NOTE | 2024-12-27 13:16 | CASEMGMT ---
Patient has order for discharge. Transfer summary and signed med list received from hospitalist. RN CM called and scheduled transportation via cot with [facility] with pickup time of 1400 to return to [facility]. RN CM updated nursing. RN CM updated patient, patient voiced appreciation and understanding. RN CM called daughter Georgina, no answer, message left with return contact number. Copy of signed med list and transport form filed in chart. RN MIYA sent discharge papers to [facility] via [facility] and updated regarding transport time.
[2024-12-27 14:00] VITALS: BP 95/67; PULSE 90; RESP 16; TEMP 36.9; O2SAT 94
== END 2024-12-27 14:40 | disposition skilled nursing facility (03) | DRG 206 ==
LOC: ED 15:47 → ICU 16:18 → PCU 12-25 13:45
PROVIDERS: Admitting Provider Internal Medicine; Emergency Provider Emergency Medicine; PCP Internal Medicine; Referring Provider Emergency Medicine; Visit Provider Student in an Organized Health Care Education/Training Program
DX: J95.01 Hemorrhage from tracheostomy stoma (principal); D68.32 Hemorrhagic disorder due to extrinsic circulating anticoagulants; I42.6 Alcoholic cardiomyopathy; E87.1 Hypo-osmolality and hyponatremia; D62 Acute posthemorrhagic anemia; I50.22 Chronic systolic (congestive) heart failure; J96.10 Chronic respiratory failure, unspecified whether with hypoxia or hypercapnia; J44.9 Chronic obstructive pulmonary disease, unspecified; F32.A Depression, unspecified; I48.0 Paroxysmal atrial fibrillation; F41.9 Anxiety disorder, unspecified; Z79.82 Long term (current) use of aspirin; Z79.899 Other long term (current) drug therapy; Z87.891 Personal history of nicotine dependence; Z79.01 Long term (current) use of anticoagulants; Z92.3 Personal history of irradiation
CPT/HCPCS: 36415; 70491; 71275; 80048; 81001; 82274; 85014; 85018; 85025; 85027; 85610; 85730; 86850; 86900; 86901; 93005; 93306; 94640; 97802; 97803; 99284; 99406; Q9957; Q9967; A4216; C8929; J2405; J7165

== ENCOUNTER 2025-02-28 13:07 | Inpatient (IN) | payer MEDICARE, MEDICAID, SELFPAY ==
[2025-02-28] VITALS (12 sets, daily range): BP systolic 92–121; BP diastolic 57–74; PULSE 71–83; RESP 14–20; TEMP 36.3–37.2; O2SAT 95–100; BMI 22.6; BMI 21.9
--- NOTE | 2025-02-28 14:31 | EKG12_ITS ---
Test Reason : SOB Blood Pressure : */* mmHG Vent. Rate : 72 BPM Atrial Rate : 72 BPM P-R Int : 176 ms QRS Dur : 90 ms QT Int : 430 ms P-R-T Axes : 79 -15 64 degrees QTcB Int : 470 ms Normal sinus rhythm Normal ECG Confirmed by SENIA REYNOLDS, NAILA ([id number]), technical writer and editor ALEXANDRIA ROSS ([id number]) on 03/01/2025 8:22:39 AM Referred By: Confirmed By: NAILA CONN MD
--- NOTE | 2025-02-28 14:31 | EX.ED.DYSGE1 ---
HPI History of Present Illness Chief Complaint: Abn Labs Narrative Narrative: History and physical mildly limited secondary to trach collar. Additional history comes from daughter who is at bedside. 70-year-old male past medical history of COPD, trach collar, congestive heart failure/COPD presents with reported Pseudomonas growing from the sputum. His daughter relates history that approximately 1 week ago he had fallen. He was transferred to [facility] for intracranial hemorrhage and rib fractures. He was admitted for less than 24 hours. He was released back to his [facility] facility. She received a call that from the battery of tests that they had performed there, that he was positive for Pseudomonas in his sputum. Patient denies any fevers or chills or any increased difficulty breathing. They told the patient and his daughter that he needed to be started on antibiotics that can only be given in the hospital, they were to return to the emergency department to receive the antibiotics. There was also concern that it may be in his blood system as well. [facility] Medical History Laryngeal squamous cell carcinoma Current use of senior care anticoagulation Anemia Herpes zoster Depression Former smoker On home oxygen therapy Atrial fibrillation Cardiomyopathy Alcoholism Esophageal mass Hyperlipidemia Chronic HFrEF (heart failure with reduced ejection fraction) Laryngeal mass Debility Wears dentures Wears glasses Cardiology follow-up encounter Difficulty swallowing Smoker High cholesterol COPD (chronic obstructive pulmonary disease) History of CHF (congestive heart failure) Agoraphobia CHF exacerbation Medical non-compliance Alcohol abuse Tobacco abuse Acute hypoxic respiratory failure Home Medications ?Medication ?Instructions ?Recorded ?Last Taken ?Type atorvastatin 40 mg tablet 40 mg PO QHS Cholesterol #30 tabs 10/15/23 02/27/25 Rx aspirin 81 mg tablet,delayed 81 mg PO BREAKFAST #0 tabs 11/26/23 02/28/25 Rx release sennosides 8.6 mg-docusate sodium 2 tab PO BID #0 tabs 11/26/23 12/21/24 Rx 50 mg tablet (Stool Softener-Stimulant Laxative) guaifenesin 100 mg/5 mL oral 600 mg (30 mL) PO Q6H PRN 03/09/24 12/21/24 Rx liquid (Adult Tussin Chest congestion 5 days #500 mL Congestion) ipratropium 0.5 mg-albuterol 3 mg 3 ml inhalation TID #180 mL 05/13/24 12/21/24 Rx (2.5 mg base)/3 mL nebulization soln acetaminophen 325 mg tablet 325 mg PO Q4H PRN fever or pain 10/03/24 Unknown History bupropion HCl 75 mg tablet 150 mg PO BID 10/03/24 12/21/24 History multivitamin 1 tab PO QDAY 10/03/24 02/28/25 History ondansetron 4 mg disintegrating 4 mg PO Q6H 10/03/24 11/04/24 History tablet sodium chloride 1,000 mg soluble 1,000 mg PO QDAY maintainence 10/03/24 12/21/24 History tablet potassium chloride 20 mEq/15 mL 15 meq feeding tube DAILY 12/21/24 12/21/24 History oral liquid SUPPLEMENT thiamine HCl (vitamin B1) 100 mg 100 mg PO DAILY replacement 12/21/24 12/21/24 History tablet (Vitamin B-1) amiodarone 200 mg tablet 200 mg PO BID #60 tabs 12/27/24 Unknown Rx metoprolol tartrate 25 mg tablet 12.5 mg (1/2 x 25 mg) PO BID #60 12/27/24 Unknown Rx tabs lactose-reduced food-fiber 0.07 1,140 ml feeding tube DAILY 02/28/25 Unknown History gram-1.5 kcal/mL liquid for tube feed (Isosource 1.5 Nicho) Allergy/AdvReac Type Severity Reaction Status Date / Time No Known Allergies Allergy Verified 02/28/25 13:09 Family History Father Pacemaker Surgical History History of tracheostomy History of laryngoscopy History of surgery Social History household members: none current occupational status: retired Smoking Status: Former smoker alcohol intake: current alcohol intake frequency: 3 or more drinks per day Alcohol type: beer details: 6 24 ounce cans of beer daily. substance use type: does not use caffeine: Yes Type: coffee ROS ROS ED ROS Narrative Review of systems is positive for trach collar. Patient denies any recent fevers or increased difficulty breathing, at baseline with his trach collar. No nausea or vomiting, no exacerbating or alleviating factors. EXAM Physical Exam Narrative Exam Narrative: Afebrile. Vital signs noted. Nontoxic-appearing. Cardiovascular examination feels regular rate and rhythm. Coarse breath sounds bilaterally with occasional rhonchi. Mild tachypnea but no distress. Abdomen soft. Awake, alert, interactive. Const Vital Signs: 02/28/25 13:10 02/28/25 13:14 02/28/25 13:14 Temperature 98 F 98 F Temperature Source Oral Oral Pulse Rate 71 71 Respiratory Rate 20 H 20 H Respiratory Effort Normal Respiratory Pattern Normal Blood Pressure 92/65 92/65 Blood Pressure Mean 74 74 Pulse Ox 98 98 Oxygen Delivery Method Trach Collar Trach Collar Oxygen Flow Rate (L/min) 10 10 02/28/25 14:31 02/28/25 14:31 02/28/25 15:00 Temperature 98.9 F 98.2 F Temperature Source Temporal Temporal Pulse Rate 72 77 Respiratory Rate 18 16 Respiratory Effort Respiratory Pattern Blood Pressure 98/68 113/63 Blood Pressure Mean 78 79 Pulse Ox 100 100 Oxygen Delivery Method T-piece Room Air Trach Collar Oxygen Flow Rate (L/min) 3 02/28/25 15:07 02/28/25 15:56 02/28/25 17:10 Temperature 98.2 F 98.8 F Temperature Source Temporal Pulse Rate 74 75 Respiratory Rate 16 16 Respiratory Effort Respiratory Pattern Blood Pressure 93/62 108/57 L Blood Pressure Mean 72 74 Pulse Ox 100 100 100 Oxygen Delivery Method Trach Collar Trach Collar Oxygen Flow Rate (L/min) 3 3 MDM MDM MDM Narrative Medical decision making narrative: Differential diagnosis includes but not limited to Pseudomonas pneumonia versus sepsis versus septicemia versus colonization. Sepsis workup pursued. EKG was obtained and interpreted by myself independently as normal sinus rhythm at 72 bpm without ectopy or acute ST changes. No STEMI. No significant change from previous dated December 24, 2024. I reviewed his laboratory work and he has a normal white count at 9.7 with hemoglobin 10.1, hematocrit 30.1, platelet count normal at 378. aPTT normal. Lactic acid less than 1.0. I doubt sepsis as he is not meeting SIRS criteria either. BUN 15 with creatinine 0.55, he has hyponatremia with a sodium of 131 and a chloride of 91, but in review of his prior labs this almost appears chronic. Urinalysis negative for infection. Chest x-ray 1 view interpreted by myself shows no consolidation or pneumothorax. I reviewed the radiology report which confirms my independent interpretation. I was unable to view any prior records at the outside facility, especially the sputum culture. The daughter states that at his nursing facility he already received antibiotics but was sent in because of a sputum at [facility] positive for Pseudomonas. They were told that they needed IV antibiotics. I have deferred IV antibiotics to the hospitalist. I discussed the patient with Dr. Gotti who will admit the patient to the PCU. Disposition is admitted in stable condition. History & Record Review Discussion w/independent historian: Patient Additional record(s) reviewed:: Prior labs (Previous hyponatremia) Lab Data Attestation: I reviewed the patient's lab results. Labs: Laboratory Results - last 24 hr 02/28/25 02/28/25 02/28/25 13:40 14:39 15:26 WBC 9.7 RBC 3.65 L Hgb 10.1 L Hct 30.1 L MCV 82.5 MCH 27.7 MCHC 33.6 RDW Std Deviation 46.9 H RDW Coeff of Elidia 15.6 H Plt Count 378 MPV 9.3 Immature Gran % (Auto) 0.500 Neut % (Auto) 79.7 H Lymph % (Auto) 5.8 L [place] % (Auto) 10.3 H Eos % (Auto) 3.4 Baso % (Auto) 0.3 Absolute Neuts (auto) 7.7 Absolute Lymphs (auto) 0.56 L Nucleated RBC % 0 APTT 30.2 Sodium 131 L Potassium 4.1 Chloride 91 L Carbon Dioxide 31.1 Anion Gap 9 BUN 15 Creatinine 0.55 L Estim Creat Clear Calc 84.46 Est GFR (MDRD) Non-Af 106 BUN/Creatinine Ratio 27.8 H Glucose 93 Lactic Acid < 1.0 Calcium 9.0 Total Bilirubin 0.26 AST 21 ALT 26 Alkaline Phosphatase 110 Total Protein 6.6 Albumin 3.4 Globulin 3.2 Albumin/Globulin Ratio 1.0 Urine Color Yellow Urine Clarity Clear Urine pH 7.0 Ur Specific [place] 1.010 Urine Protein 15 H Urine Glucose (UA) Normal Urine Ketones Negative Urine Occult Blood Negative Urine Nitrite Negative Urine Bilirubin Negative Urine Urobilinogen Normal Ur Leukocyte Esterase Negative Urine RBC 0 SEEN Urine WBC 0-5 SEEN Ur Squamous Epith Cells 0 SEEN Urine Bacteria 1+ Urine Mucus 0 SEEN Radiography Diagnostic Testing: Clinical Impression(s) from Imaging Studies Chest X-Ray 02/28/25 14:50 IMPRESSION: No acute pulmonary process Reading Location: [id number] Management Discussion w/another healthcare provider: Hospitalist (Dr. Gotti) Discharge Plan Dx/Rx/DC Orders Clinical Impression: Positive sputum culture for Pseudomonas, COPD (chronic obstructive pulmonary disease), Laryngeal squamous cell carcinoma Disposition Disposition: Acute Care Hospital [facility]
[2025-02-28 14:50] LABS: Hematocrit 30.1 % (40-54); Hemoglobin 10.1 g/dL (13.0-16.5); Immature Granulocytes Count 0.050 X10^3/uL (0.0-0.0); Mean Corp Hgb Conc 33.6 g/dL (32-36); Mean Corpuscular Volume 82.5 fL (80-94); Mean Platelet Vol. 9.3 fl (6.2-12.0); NRBC Flagged by Analyzer 0 % (0-5); POSITIVE DIFFERENTIAL YES; Platelet Count 378 K/mm3 (150-450); RBC Distribution Width CV 15.6 % (11.6-14.6); RBC Distribution Width SD 46.9 fl (35.1-43.9); Red Blood Count 3.65 M/mm3 (4.6-6.2); White Blood Count 9.7 K/mm3 (4.4-11.0)
--- NOTE | 2025-02-28 14:50 | RAD_ITS ---
PROCEDURE: CHEST 1 VIEW (PORTABLE) 02/28/2025 REASON FOR EXAM: SHORTNESS OF BREATH TECHNIQUE: 2 frontal views of the chest. COMPARISON: None FINDINGS: Hardware: EKG leads overlie the chest, tracheostomy tube in satisfactory position, tip is 5 cm above the annette, satisfactory appearance of the right subclavian port Heart: The heart size is normal. Lungs: The lungs are clear. Bones: Degenerative changes are identified within the thoracic spine. Other: RAD/Chest 1 View (Portable) IMPRESSION: No acute pulmonary process Reading Location: [id number]
[2025-02-28 15:28] LABS: Mucous, Urine 0 SEEN /hpf (<or=2+); Red Blood Cells-Urine 0 SEEN /hpf (0-5); Squamous Epithelial Cells - UA 0 SEEN /hpf (0-5)
[2025-02-28 15:35] LABS: Color, Urine Yellow (Yellow); Glucose, Dipstick Normal (Normal); Ketone-Dipstick Negative (Negative); Leukocyte Esterase-Dipstick Negative /ul (Negative); Nitrite-Dipstick Negative (Negative); Occult Blood-Urine Negative /ul (Negative); Protein-Dipstick 15 mg/dl (Negative); Specific Gravity, Urine 1.010 (1.002-1.030); Urine Bilirubin Dipstick Negative (Negative)
[2025-02-28 15:44] LABS: Partial Thromboplast Time 30.2 Seconds (24.1-36.2)
[2025-02-28 15:45] LABS: AST(SGOT) 21 U/L (<=37); Alanine Aminotransfer ALT/SGPT 26 U/L (<=46); Albumin, Serum 3.4 g/dL (3.4-4.8); Alkaline Phosphatase 110 U/L (40-129); Anion Gap 9 (5-15); BUN 15 mg/dL (4-19); BUN/Creat Ratio 27.8 RATIO (10-20); Calcium,Total 9.0 mg/dL (7.6-11.0); Carbon Dioxide 31.1 mmol/L (21.0-32.0); Chloride 91 mmol/L (98-108); Estimated Creatinine Clearance 84.46 ml/min (50-250); Globulin 3.2 g/dL (2.2-4.2); Glucose 93 mg/dL (70-99); Potassium 4.1 mmol/L (3.3-5.1)
--- NOTE | 2025-02-28 17:03 | CM.ED ---
Social Work SW met with patients daughter who verified that patient will be returning to [facility] when medically ready. Maia Waters, DRILLING AND PRODUCTION SUPERINTENDENT, CONTACT CENTER CONSULTANT
--- NOTE | 2025-02-28 17:50 | HP.PCM.HOS_ITS ---
HPI - General General Date of Admission: 02/28/25 Date of Service: 02/28/25 Chief Complaint: Reported sputum culture growing resistant Pseudomonas HPI Narrative CHACORTA CONCEPCION, is a 70 M who presented to [facility] ED on 02/28/2025 for a reported sputum culture growing resistant Pseudomonas. Medical history significant for tracheostomy secondary to laryngeal cancer, chronic respiratory failure on 2 L at baseline, paroxysmal A-fib, heart failure with recovered ejection fraction and anxiety/depression. He has lived at [facility] now 1 year. He had a mechanical fall there last Thursday onto his left side and went to [facility] for this is as a trauma patient. Per his and daughter's report, he was there for less than 24 hours. He was found to have 4 rib fractures on the left side that did not require any surgical intervention. He was then discharged back to the [facility] the next day. Apparently while he was there they collected a sputum culture from his tracheostomy. Daughter received a call today from someone at [facility] who noted that his sputum culture came back positive for Pseudomonas with resistance to several antibiotics so he was told to come to the ED for admission for IV antibiotics. In the ED patient was normotensive, normal sinus rhythm, afebrile and had saturations in the high 90s on home 2 L at rest. Chest x-ray was unremarkable. CBC with no leukocytosis noted and BMP was stable from previous. Given possible need for admission for IV antibiotics, hospitalist was contacted. I saw the patient at bedside in the ED, daughter was present. Patient was sitting back comfortably in bed and in no acute distress. He was mouthing appropriate responses to questions for me, and his daughter was able to assist with history as well. Patient reports some ongoing left-sided rib pain with movement due to his recent fall with rib fractures, but he notes this is slowly improving. He denies any chest pain, shortness of breath, new sputum production, cough or fever/chills. Daughter was unsure who at [facility] called her and said they gave her minimal information aside from the positive sputum culture and need for admission for IV antibiotics. Unfortunately there was no information from this admission available in [facility], so I called the main lab at [facility]. They also noted that there is no information available in his [facility] chart there that they have access to; they suspected this was likely due to patient being entered in as a trauma patient on admission there, so the information would be under a different chart possibly with Gerardo Hernández as the name. Because we do not have this information available, I noted to patient and daughter that it was nuñez to initiate IV antibiotics for possible Pseudomonas infection with plan to repeat sputum culture and blood cultures here and have infectious disease see the patient for assistance with management. They were agreeable to this. Will be admitted for further management. [facility] Medical History Laryngeal squamous cell carcinoma Current use of skilled nursing anticoagulation Anemia Herpes zoster Depression Former smoker On home oxygen therapy Atrial fibrillation Cardiomyopathy Alcoholism Esophageal mass Hyperlipidemia Chronic HFrEF (heart failure with reduced ejection fraction) Laryngeal mass Debility Wears dentures Wears glasses Cardiology follow-up encounter Difficulty swallowing Smoker High cholesterol COPD (chronic obstructive pulmonary disease) History of CHF (congestive heart failure) Agoraphobia CHF exacerbation Medical non-compliance Alcohol abuse Tobacco abuse Acute hypoxic respiratory failure Home Medications ?Medication ?Instructions ?Recorded ?Last Taken ?Type atorvastatin 40 mg tablet 40 mg PO QHS Cholesterol #30 tabs 10/15/23 02/27/25 Rx aspirin 81 mg tablet,delayed 81 mg PO BREAKFAST #0 tab s 11/26/23 02/28/25 Rx release sennosides 8.6 mg-docusate sodium 2 tab PO BID #0 tabs 11/26/23 12/21/24 Rx 50 mg tablet (Stool Softener-Stimulant Laxative) guaifenesin 100 mg/5 mL oral 600 mg (30 mL) PO Q6H PRN 03/09/24 12/21/24 Rx liquid (Adult Tussin Chest congestion 5 days #500 mL Congestion) ipratropium 0.5 mg-albuterol 3 mg 3 ml inhalation TID #180 mL 05/13/24 12/21/24 Rx (2.5 mg base)/3 mL nebulization soln acetaminophen 325 mg tablet 325 mg PO Q4H PRN fever or pain 10/03/24 Unknown History bupropion HCl 75 mg tablet 150 mg PO BID 10/03/2411/30 History multivitamin 1 tab PO QDAY 10/03/2402/28 History ondansetron 4 mg disintegrating 4 mg PO Q6H 10/03/24 0 11/04/24 History tablet sodium chloride 1,000 mg soluble 1,000 mg PO QDAY main tainence 10/03/24 12/21/24 History tablet potassium chloride 20 mEq/15 mL 15 meq feeding tube DA RAMON 12/21/24 12/21/24 History oral liquid SUPPLEMENT thiamine HCl (vitamin B1) 100 mg 100 mg PO DAILY repla cement 12/21/24 12/21/24 History tablet (Vitamin B-1) amiodarone 200 mg tablet 200 mg PO BID #60 tabs 12/27 Unknown Rx metoprolol tartrate 25 mg tablet 12.5 mg (1/2 x 25 mg) PO BID #60 12/27/24 Unknown Rx tabs lactose-reduced food-fiber 0.07 1,140 ml feeding tube DAILY 02/28/25 Unknown History gram-1.5 kcal/mL liquid for tube feed (Isosource 1.5 Nicho) Allergy/AdvReac Type Severity Reaction Status Date / Time No Known Allergies Allergy Verified 02/28/25 13:09 Family History Father Pacemaker Surgical History History of tracheostomy History of laryngoscopy History of surgery Social History household members: none current occupational status: retired Smoking Status: Former smoker alcohol intake: current alcohol intake frequency: 3 or more drinks per day Alcohol type: beer details: 6 24 ounce cans of beer daily. substance use type: does not use caffeine: Yes Type: coffee ROS Constitutional Constitutional: Denies chills, fatigue, fever(s) or weakness Eyes Eyes: Denies change in vision Cardiovascular Cardiovascular: Denies chest pain Respiratory/Chest Respiratory/Chest: Denies cough, productive cough, shortness of breath at rest, shortness of breath with exertion or wheezing Gastrointestinal Gastrointestinal: Denies abdominal pain Musculoskeletal Musculoskeletal: Reports other Details: Left-sided rib pain with movement ; Denies arthralgias or myalgias Neurologic Neurologic: Denies dizziness, focal weakness or headache(s) Vital Signs Vital Signs Vital Signs: 02/28/25 13:10 02/28/25 13:14 02/28/25 13:14 Temperature 98 F 98 F Temperature Source Oral Oral Pulse Rate 71 71 Respiratory Rate 20 H 20 H Respiratory Effort Normal Respiratory Pattern Normal Blood Pressure 92/65 92/65 Blood Pressure Mean 74 74 Pulse Ox 98 98 Oxygen Delivery Method Trach Collar Trach Collar Oxygen Flow Rate (L/min) 10 10 02/28/25 14:31 02/28/25 14:31 02/28/25 15:00 Temperature 98.9 F 98.2 F Temperature Source Temporal Temporal Pulse Rate 72 77 Respiratory Rate 18 16 Respiratory Effort Respiratory Pattern Blood Pressure 98/68 113/63 Blood Pressure Mean 78 79 Pulse Ox 100 100 Oxygen Delivery Method T-piece Room Air Trach Collar Oxygen Flow Rate (L/min) 3 02/28/25 15:07 02/28/25 15:56 02/28/25 17:10 Temperature 98.2 F 98.8 F Temperature Source Temporal Pulse Rate 74 75 Respiratory Rate 16 16 Respiratory Effort Respiratory Pattern Blood Pressure 93/62 108/57 L Blood Pressure Mean 72 74 Pulse Ox 100 100 100 Oxygen Delivery Method Trach Collar Trach Collar Oxygen Flow Rate (L/min) 3 3 Weight Weight: 69.5 kg Body Mass Index (BMI) 22.6 Physical Exam Const alert, oriented x3 and no apparent distress Constitutional Narrative: Elderly male, tracheostomy in place, mildly fatigued appearing but otherwise sitting back comfortably in bed, mouthing short appropriate responses to questions, in no acute distress. General Appearance: cooperative and comfortable HEENT normocephalic, head/scalp atraumatic, hearing grossly normal bilaterally, nasal mucous membranes and turbinates normal and moist oral mucous membranes Eyes PERRL, EOMs intact bilaterally and conjunctivae normal Neck full ROM Neck Narrative: Tracheostomy in place. Site appears clean and dry. Chest inspection of chest normal Resp normal respiratory effort, normal air movement, no use of accessory muscles and clear to auscultation bilaterally Resp Narrative: Good breath sounds noted bilaterally throughout with no wheezing or crackles noted. Cardio regular rate, regular rhythm, no murmurs and peripheral pulses 2+ throughout GI normal to inspection, nondistended, normoactive bowel sounds, soft to palpation, non-tender and non-distended GI Narrative: PEG tube in place. Site appears clean and dry. Back/Spine normal ROM Extremity normal to inspection, full ROM and no pedal edema Skin no rashes or lesions noted Psych mental status grossly normal Results Lab / Micro Data 02/28/25 13:40 02/28/25 13:40 Labs: Laboratory Results - last 24 hr 02/28/25 13:40: WBC 9.7, RBC 3.65 L, Hgb 10.1 L, Hct 30.1 L, MCV 82.5, MCH 27.7, MCHC 33.6, RDW Std Deviation 46.9 H, RDW Coeff of Elidia 15.6 H, Plt Count 378, MPV 9.3, Immature Gran % (Auto) 0.500, Neut % (Auto) 79.7 H, Lymph % (Auto) 5.8 L, M lizy % (Auto) 10.3 H, Eos % (Auto) 3.4, Baso % (Auto) 0.3, Absolute Neuts (auto) 7.7, Absolute Lymphs (auto) 0.56 L, Nucleated RBC % 0, APTT 30.2, Sodium 131 L, Potassium 4.1, Chloride 91 L, Carbon Dioxide 31.1, Anion Gap 9, BUN 15, C reatinine 0.55 L, Estim Creat Clear Calc 84.46, Est GFR (MDRD) Non-Af 106, B UN/Creatinine Ratio 27.8 H, Glucose 93, Calcium 9.0, Total Bilirubin 0.26, AST 21, ALT 26, Alkaline Phosphatase 110, Total Protein 6.6, Albumin 3.4, Globulin 3.2, Albumin/Globulin Ratio 1.0 02/28/25 14:39: Lactic Acid < 1.0 02/28/25 15:26: Urine Color Yellow, Urine Clarity Clear, Urine pH 7.0, Ur Specific [place] 1.010, Urine Protein 15 H, Urine Glucose (UA) Normal, Urine Ketones Negative, Urine Occult Blood Negative, Urine Nitrite Negative, Urine Bilirubin Negative, Urine Urobilinogen Normal, Ur Leukocyte Esterase Negative, Urine RBC 0 SEEN, Urine WBC 0-5 SEEN, Ur Squamous Epith Cells 0 SEEN, Urine Bacteria 1+, Urine Mucus 0 SEEN Micro: Microbiology 02/28/25 15:00 Sputum, Tracheal Aspirate Gram Stain - Final Imaging Radiology Impression Chest X-Ray 02/28/25 14:50 IMPRESSION: No acute pulmonary process Reading Location: [id number] Assessment & Plan Assessment/Plan (1) Positive sputum culture for Pseudomonas: PLAN: Plan Patient is a 70-year-old male who presented [facility] ED on 02/28/2025 with reported positive sputum culture for multidrug-resistant Pseudomonas. 1. Reported positive sputum culture for multidrug-resistant Pseudomonas ? Admit under inpatient status to PCU. Infectious disease consulted. Patient reportedly had sputum culture drawn at [facility] around 02/21 that returned positive for multidrug-resistant Pseudomonas. Unable to find this result, see HPI for further details. Patient with no respiratory infectious symptoms noted, chest x-ray negative, no leukocytosis and afebrile. Suspect this sputum result may be due to colonization of his tracheostomy. However, since we are unable to find his records will empirically treat with IV Zosyn for now and repeat both sputum culture and blood cultures. Appreciate further ID recommendations. 2. Tracheostomy and PEG tube status secondary to history of laryngeal cancer, chronic respiratory failure on 2 L at baseline ? Patient stable on home 2 L through the tracheostomy on admit. Utilizes PEG tube for feeding and for medication administration. Continue home DuoNebs 3 times daily scheduled. 3. Chronic normocytic anemia with recent history of bleed around tracheostomy site ? Hemoglobin 10.1 on admit, baseline around 9-10. He was recently admitted in late November here for a bleed around his tracheostomy site and hemoglobin dropped to around 8. His Eliquis for paroxysmal A-fib was discontinued at that time and he has had no further bleeding issues around the tracheostomy site. 4. Paroxysmal A-fib, chronic heart failure with recovered ejection fraction, hyperlipidemia ? Stable in normal sinus rhythm and normotensive on admit. Most recent echo in late November showed EF 50%, mild hypokinesis of the left ventricle. Continue home aspirin, amiodarone, Lopressor and atorvastatin. 5. Chronic mild hyponatremia ? Sodium 131 on admit, stable at baseline. Continue home sodium chloride tablet. 6. Anxiety/depression ? Stable. Continue home bupropion. 7. Chronic debility ? Case management consulted. Has lived at [facility] for about 1 year now. Should be fine to return there at discharge. DVT prophylaxis: Lovenox CODE STATUS: DNR CCA, okay to intubate/utilize tracheostomy for ventilator management if needed Expected disposition: Back to [facility] Total clinical time spent by myself addressing the patient's medical issues, reviewing all the data, and collaborating with patient's care team: 87 minutes. Charges/Coding Visit Charges Inpatient E&M: 41939 Init Hosp L3
[2025-02-28] MEDS: Piperacil/Tazobactam 3.375 GM in 0.9% Normal Saline (50mL MB+) 50 ML IV (20:00)
[2025-02-28] MEDS: Senna/Docusate Sodium 1 Tablet 2 TABLET GT (23:39)
[2025-02-28] MEDS: Jevity 1.5 1,000 ML 60 ML GT (23:56)
[2025-03-01] VITALS (9 sets, daily range): BP systolic 105–131; BP diastolic 51–74; PULSE 72–81; RESP 14–20; TEMP 36.3–37.2; O2SAT 95–98
[2025-03-01] MEDS: Piperacil/Tazobactam 3.375 GM in 0.9% Normal Saline (50mL MB+) 50 ML IV (05:37)
[2025-03-01 08:06] LABS: Hematocrit 32.1 % (40-54); Hemoglobin 10.3 g/dL (13.0-16.5); Mean Corp Hgb Conc 32.1 g/dL (32-36); Mean Corpuscular Volume 84.0 fL (80-94); Mean Platelet Vol. 9.1 fl (6.2-12.0); Platelet Count 342 K/mm3 (150-450); RBC Distribution Width CV 15.6 % (11.6-14.6); RBC Distribution Width SD 47.4 fl (35.1-43.9); Red Blood Count 3.82 M/mm3 (4.6-6.2); White Blood Count 6.9 K/mm3 (4.4-11.0)
[2025-03-01 08:39] LABS: Anion Gap 7 (5-15); BUN 15 mg/dL (4-19); BUN/Creat Ratio 33.1 RATIO (10-20); Calcium,Total 8.4 mg/dL (7.6-11.0); Carbon Dioxide 31.0 mmol/L (21.0-32.0); Chloride 93 mmol/L (98-108); Estimated Creatinine Clearance 81.67 ml/min (50-250); Glucose 126 mg/dL (70-99); Potassium 4.2 mmol/L (3.3-5.1)
--- NOTE | 2025-03-01 09:47 | CASEMGMT ---
Social Work SW spoke with the daughter Georgina. Georgina reported she wants the patient to return to [facility] at discharge. SHAKIR Ruff
--- NOTE | 2025-03-01 10:20 | CASEMGMT ---
Addendum entered by Alka Valderrama 03/01/25 10:30: Pt is a [facility] bed hold and can return when medically ready. Alka Valderrama DC Planning Asst. Original Note: Discharge Planning Updates sent to [facility] with note asking if precert is needed. Awaiting response. Alka Valderrama DC Planning Asst.
[2025-03-01] MEDS: Potassium Chloride Oral Soln 20 MEQ/15 ML UDC 15 MEQ GT (11:01)
[2025-03-01] MEDS: Senna/Docusate Sodium 1 Tablet 2 TABLET GT ×2 (11:02→22:20)
[2025-03-01] MEDS: Thiamine Hydrochloride 100 MG Tablet GT (11:02)
[2025-03-01] MEDS: Aspirin E.C. 81 MG Tablet PO (11:03)
--- NOTE | 2025-03-01 11:19 | PN.HOSP_ITS ---
Reason for Visit Chief Complaint: Reported sputum culture growing resistant Pseudomonas Subjective Subjective Patient is a 70-year-old lady with recent trauma with head injury and rib fractures, history of laryngeal CA status post tracheostomy and PEG tube resident is an extended care facility brought to the ED after findings of MDR?Pseudomonas in the sputum Objective Data Objective Data Vital Signs: Vital Signs Temp Pulse Resp BP Pulse Ox O2 Del Method O2 Flow Rate 97.4 F L 80 18 116/74 98 Trach Collar 2 03/01/25 11:00 03/01/25 11:03 03/01/25 11:00 03/01/25 11:03 03/01/25 11:00 03/01/25 11:00 03/01/25 11:00 FiO2 35 03/01/25 07:32 Oxygen Flow Rate (L/min) 2 Oxygen Delivery Method Trach Collar Weight: 67.2 kg Body Mass Index (BMI) 21.9 Intake & Output: Intake and Output for Last 24 Hours 02/27/25 02/28/25 03/01/25 23:59 23:59 23:59 Intake Total 310 / 310 Output Total 600 / 600 Balance -290 / -290 Lab / Micro Data 03/01/25 07:56 03/01/25 07:56 Labs: Laboratory Results - last 24 hr 02/28/25 13:40: WBC 9.7, RBC 3.65 L, Hgb 10.1 L, Hct 30.1 L, MCV 82.5, MCH 27.7, MCHC 33.6, RDW Std Deviation 46.9 H, RDW Coeff of Elidia 15.6 H, Plt Count 378, MPV 9.3, Immature Gran % (Auto) 0.500, Neut % (Auto) 79.7 H, Lymph % (Auto) 5.8 L, M lizy % (Auto) 10.3 H, Eos % (Auto) 3.4, Baso % (Auto) 0.3, Absolute Neuts (auto) 7.7, Absolute Lymphs (auto) 0.56 L, Nucleated RBC % 0, APTT 30.2, Sodium 131 L, Potassium 4.1, Chloride 91 L, Carbon Dioxide 31.1, Anion Gap 9, BUN 15, C reatinine 0.55 L, Estim Creat Clear Calc 84.46, Est GFR (MDRD) Non-Af 106, B UN/Creatinine Ratio 27.8 H, Glucose 93, Calcium 9.0, Total Bilirubin 0.26, AST 21, ALT 26, Alkaline Phosphatase 110, Total Protein 6.6, Albumin 3.4, Globulin 3.2, Albumin/Globulin Ratio 1.0 02/28/25 14:39: Lactic Acid < 1.0 02/28/25 15:26: Urine Color Yellow, Urine Clarity Clear, Urine pH 7.0, Ur Specific [place] 1.010, Urine Protein 15 H, Urine Glucose (UA) Normal, Urine Ketones Negative, Urine Occult Blood Negative, Urine Nitrite Negative, Urine Bilirubin Negative, Urine Urobilinogen Normal, Ur Leukocyte Esterase Negative, Urine RBC 0 SEEN, Urine WBC 0-5 SEEN, Ur Squamous Epith Cells 0 SEEN, Urine Bacteria 1+, Urine Mucus 0 SEEN 03/01/25 07:56: WBC 6.9, RBC 3.82 L, Hgb 10.3 L, Hct 32.1 L, MCV 84.0, MCH 27.0, MCHC 32.1, RDW Std Deviation 47.4 H, RDW Coeff of Elidia 15.6 H, Plt Count 342, MPV 9.1, Sodium 132 L, Potassium 4.2, Chloride 93 L, Carbon Dioxide 31.0, Anion Gap 7, BUN 15, Creatinine 0.44 L, Estim Creat Clear Calc 81.67, Est GFR (MDRD) Non- Af 114, BUN/Creatinine Ratio 33.1 H, Glucose 126 H, Calcium 8.4 Micro: Microbiology 02/28/25 15:00 Sputum, Tracheal Aspirate Gram Stain - Final Radiography Diagnostic Testing: Radiology Impression Chest X-Ray 02/28/25 14:50 IMPRESSION: No acute pulmonary process Reading Location: [facility] Physical Exam Narrative GENERAL: cooperative HEENT: Atraumatic; trach collar in place EYES; Anicteric, Normal Conjunctiva NECK; supple, normal thyroid, RESPIRATORY: Diminished to auscultation CARDIOVASCULAR: Regular S1 S2, GI: soft, normoactive bowel sounds, PEG tube in situ : No Renal angle tenderness; EXTREMITIES: No edema, no clubbing, MUSCULOSKELETAL: no muscle wasting NEURO: Awake; no lateralizing signs. SKIN: No Rash PSYCH; Flat affect Assessment & Plan Assessment/Plan (1) Positive sputum culture for Pseudomonas: PLAN: Plan Patient is a 70-year-old lady with recent trauma with head injury and rib fractures, history of laryngeal CA status post tracheostomy and PEG tube resident is an extended care facility brought to the ED after findings of MDR?Pseudomonas in the sputum 1. Multidrug-resistant tracheitis ? Patient was found to have multidrug-resistant Pseudomonas in sputum cultures have been drawn on 02/21/2025 at [facility]. Checks x-ray did not show any evidence of infection patient had no leukocytosis and remained afebrile. Repeat cultures sent on admission started on Zosyn admitted to monitored bed with consultation placed to ID 2. History of laryngeal CA ? Status post tracheostomy as well as PEG tube placement patient is on supplemental oxygen 3. Chronic hypoxic respiratory failure ? Patient is on 2 L of oxygen at baseline 4. Anemia ? Secondary to chronic disorder monitoring H&H and transfuse if patient becomes symptomatic or hemoglobin falls below 7 5. Dyslipidemia ?Patient is on statin therapy, continued at home dose 6. Chronic pain related to patient concern ? Discontinue patient home meds 7. Paroxysmal atrial fibrillation ? Rate controlled patient is on amiodarone 8. Chronic congestive heart failure with preserved ejection fraction ? Echo from November demonstrated EF of 50% with mild hypokinesis of left ventricle. Patient remains on guideline directed medical therapy 9. Chronic mild hyponatremia ? Sodium on admission was 131 patient on salt sodium tablet did continue 10. Anxiety/depression ? Stable. Continue home bupropion. 11. Chronic debility ? Case management consulted. Has lived at [facility] for about 1 year now. Plan is for patient to be discharged back to the facility after evaluation by ID 12. DVT prophylaxis ? On enoxaparin CODE STATUS: DNR CCA, okay to intubate/utilize tracheostomy for ventilator management if needed Time spent in the patient's overall evaluation,decision-making process, review of diagnostic data, adjustment of management, discussion with other providers, nursing nursing and ancillary staff involved in patient's care documentation, 40 Minutes Charges/Coding Visit Charges Inpatient E&M: 29640 Subs Hosp L2
--- NOTE | 2025-03-01 13:25 | CON.PCM.ID_ITS ---
Assessment & Plan Assessment/Plan (1) Positive sputum culture for Pseudomonas: PLAN: Clinically appears well. CXR is clear. Reports cough and breathing status is at baseline. Will try to obtain records from [facility]. No fever and normal wbc here. Will stop zosyn and monitor. Will follow, thank you (2) Laryngeal squamous cell carcinoma: HPI Consult Data Date of Consult: 03/01/25 HPI Narrative Reason for Consultation: PsA infection HPI Narrative: CHACORTA CONCEPCION, is a 70 M with trach due to laryngeal cancer, [facility] resident, had a fall and admitted to [facility] as a trauma patient. Per report, had sputum (+) PsA while there, now admitted for treatment. Denies any change in baseline cough or dyspnea. No fever, no abd pain. Admitted here on zosyn. Full ROS performed and neg except as noted above. [facility] Medical History Laryngeal squamous cell carcinoma Current use of medical terminologist anticoagulation Anemia Herpes zoster Depression Former smoker On home oxygen therapy Atrial fibrillation Cardiomyopathy Alcoholism Esophageal mass Hyperlipidemia Chronic HFrEF (heart failure with reduced ejection fraction) Laryngeal mass Debility Wears dentures Wears glasses Cardiology follow-up encounter Difficulty swallowing Smoker High cholesterol COPD (chronic obstructive pulmonary disease) History of CHF (congestive heart failure) Agoraphobia CHF exacerbation Medical non-compliance Alcohol abuse Tobacco abuse Acute hypoxic respiratory failure Home Medications ?Medication ?Instructions ?Recorded ?Last Taken ?Type atorvastatin 40 mg tablet 40 mg PO QHS Cholesterol #30 tabs 10/15/23 02/27/25 Rx aspirin 81 mg tablet,delayed 81 mg PO BREAKFAST #0 tab s 11/26/23 02/28/25 Rx release sennosides 8.6 mg-docusate sodium 2 tab PO BID #0 tabs 11/26/23 12/21/24 Rx 50 mg tablet (Stool Softener-Stimulant Laxative) guaifenesin 100 mg/5 mL oral 600 mg (30 mL) PO Q6H PRN 03/09/24 12/21/24 Rx liquid (Adult Tussin Chest congestion 5 days #500 mL Congestion) ipratropium 0.5 mg-albuterol 3 mg 3 ml inhalation TID #180 mL 05/13/24 12/21/24 Rx (2.5 mg base)/3 mL nebulization soln acetaminophen 325 mg tablet 325 mg PO Q4H PRN fever or pain 10/03/24 Unknown History bupropion HCl 75 mg tablet 150 mg PO BID 10/03/24 07/08/23 History multivitamin 1 tab PO QDAY 10/03/2402/28 History ondansetron 4 mg disintegrating 4 mg PO Q6H 10/03/24 0 11/04/24 History tablet sodium chloride 1,000 mg soluble 1,000 mg PO QDAY main tainence 10/03/24 12/21/24 History tablet potassium chloride 20 mEq/15 mL 15 meq feeding tube DA RAMON 12/21/24 12/21/24 History oral liquid SUPPLEMENT thiamine HCl (vitamin B1) 100 mg 100 mg PO DAILY repla cement 12/21/24 12/21/24 History tablet (Vitamin B-1) amiodarone 200 mg tablet 200 mg PO BID #60 tabs 12/27 Unknown Rx metoprolol tartrate 25 mg tablet 12.5 mg (1/2 x 25 mg) PO BID #60 12/27/24 Unknown Rx tabs lactose-reduced food-fiber 0.07 1,140 ml feeding tube DAILY 02/28/25 Unknown History gram-1.5 kcal/mL liquid for tube feed (Isosource 1.5 Nicho) Allergy/AdvReac Type Severity Reaction Status Date / Time No Known Allergies Allergy Verified 02/28/25 13:09 Family History Father Pacemaker Surgical History History of tracheostomy History of laryngoscopy History of surgery Social History household members: none current occupational status: retired Smoking Status: Former smoker alcohol intake: current alcohol intake frequency: 3 or more drinks per day Alcohol type: beer details: 6 24 ounce cans of beer daily. substance use type: does not use caffeine: Yes Type: coffee Physical Exam Const alert and no apparent distress General Appearance: cooperative HEENT normocephalic and head/scalp atraumatic Eyes PERRL and EOMs intact bilaterally Neck supple and No nodes Neck Narrative: trach in place Resp normal air movement and clear to auscultation bilaterally Cardio regular rate and regular rhythm GI soft to palpation, non-tender and non-distended Extremity General Extremity: Negative for edema Skin no rashes or lesions noted Neuro CN's II-XII intact bilaterally Lab / Micro Data Attestation: I reviewed the patient's lab results. 03/01/25 07:56 03/01/25 07:56 Labs: Laboratory Results - last 24 hr 02/28/25 13:40: WBC 9.7, RBC 3.65 L, Hgb 10.1 L, Hct 30.1 L, MCV 82.5, MCH 27.7, MCHC 33.6, RDW Std Deviation 46.9 H, RDW Coeff of Elidia 15.6 H, Plt Count 378, MPV 9.3, Immature Gran % (Auto) 0.500, Neut % (Auto) 79.7 H, Lymph % (Auto) 5.8 L, M lizy % (Auto) 10.3 H, Eos % (Auto) 3.4, Baso % (Auto) 0.3, Absolute Neuts (auto) 7.7, Absolute Lymphs (auto) 0.56 L, Nucleated RBC % 0, APTT 30.2, Sodium 131 L, Potassium 4.1, Chloride 91 L, Carbon Dioxide 31.1, Anion Gap 9, BUN 15, C reatinine 0.55 L, Estim Creat Clear Calc 84.46, Est GFR (MDRD) Non-Af 106, B UN/Creatinine Ratio 27.8 H, Glucose 93, Calcium 9.0, Total Bilirubin 0.26, AST 21, ALT 26, Alkaline Phosphatase 110, Total Protein 6.6, Albumin 3.4, Globulin 3.2, Albumin/Globulin Ratio 1.0 02/28/25 14:39: Lactic Acid < 1.0 02/28/25 15:26: Urine Color Yellow, Urine Clarity Clear, Urine pH 7.0, Ur Specific [place] 1.010, Urine Protein 15 H, Urine Glucose (UA) Normal, Urine Ketones Negative, Urine Occult Blood Negative, Urine Nitrite Negative, Urine Bilirubin Negative, Urine Urobilinogen Normal, Ur Leukocyte Esterase Negative, Urine RBC 0 SEEN, Urine WBC 0-5 SEEN, Ur Squamous Epith Cells 0 SEEN, Urine Bacteria 1+, Urine Mucus 0 SEEN 03/01/25 07:56: WBC 6.9, RBC 3.82 L, Hgb 10.3 L, Hct 32.1 L, MCV 84.0, MCH 27.0, MCHC 32.1, RDW Std Deviation 47.4 H, RDW Coeff of Elidia 15.6 H, Plt Count 342, MPV 9.1, Sodium 132 L, Potassium 4.2, Chloride 93 L, Carbon Dioxide 31.0, Anion Gap 7, BUN 15, Creatinine 0.44 L, Estim Creat Clear Calc 81.67, Est GFR (MDRD) Non- Af 114, BUN/Creatinine Ratio 33.1 H, Glucose 126 H, Calcium 8.4 Micro: Microbiology 02/28/25 15:00 Sputum, Tracheal Aspirate Gram Stain - Final Imaging Radiology Impression Chest X-Ray 02/28/25 14:50 IMPRESSION: No acute pulmonary process Reading Location: [id number]
--- NOTE | 2025-03-01 15:57 | CHAPLAIN ---
Type of Pastoral Visit _x__ Initial Visit ___ Follow-up Visit ___ On-call Visit ___ General Patient Visit ___ Spiritual Assessment ___ Family Conference ___ Bereavement ___ Rapid Response ___ Code Blue ___ Other (describe below) Pastoral Care Referral From _x__ Patient ___ Family ___ Nurse ___ Physician ___ Test Lead ___ Human Resources Representative ___ Other (describe below) Sacrament/Intervention ___ Active listening ___ Anointing ___ Amish ___ Bereavement ___ Communion ___ Diana exploration ___ ___ Life review _x__ Prayer ___ Reconciliation ___ Sacrament of Sick _x__ Supportive presence ___ Wedding ___ Other (describe below) Pastoral Comments 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
[2025-03-01] MEDS: Jevity 1.5 1,000 ML 50 ML GT (19:27)
[2025-03-02] VITALS (8 sets, daily range): BP systolic 112–124; BP diastolic 61–77; PULSE 71–83; RESP 16–20; TEMP 36.3–36.7; O2SAT 95–100
[2025-03-02 06:01] LABS: Hematocrit 31.1 % (40-54); Hemoglobin 10.2 g/dL (13.0-16.5); Immature Granulocytes Count 0.050 X10^3/uL (0.0-0.0); Mean Corp Hgb Conc 32.8 g/dL (32-36); Mean Corpuscular Volume 82.5 fL (80-94); Mean Platelet Vol. 9.0 fl (6.2-12.0); NRBC Flagged by Analyzer 0 % (0-5); POSITIVE DIFFERENTIAL YES; Platelet Count 357 K/mm3 (150-450); RBC Distribution Width CV 15.6 % (11.6-14.6); RBC Distribution Width SD 47.0 fl (35.1-43.9); Red Blood Count 3.77 M/mm3 (4.6-6.2); White Blood Count 7.9 K/mm3 (4.4-11.0)
[2025-03-02 06:16] LABS: Anion Gap 10 (5-15); BUN 12 mg/dL (4-19); BUN/Creat Ratio 24.5 RATIO (10-20); Calcium,Total 8.9 mg/dL (7.6-11.0); Carbon Dioxide 29.2 mmol/L (21.0-32.0); Chloride 93 mmol/L (98-108); Estimated Creatinine Clearance 81.67 ml/min (50-250); Glucose 110 mg/dL (70-99); Magnesium 2.0 mg/dL (1.5-2.2); Potassium 4.2 mmol/L (3.3-5.1)
--- NOTE | 2025-03-02 07:59 | CPS ---
Pt has redness around trach site and it is tender. RT will supply him with washcloths to keep it dry and will talk to RN about it.
--- NOTE | 2025-03-02 08:21 | PCA ---
REQUESTED MEDICAL RECORDS FROM [facility]
[2025-03-02] MEDS: Potassium Chloride Oral Soln 20 MEQ/15 ML UDC 15 MEQ GT (09:04)
[2025-03-02] MEDS: Thiamine Hydrochloride 100 MG Tablet GT (09:04)
[2025-03-02] MEDS: Senna/Docusate Sodium 1 Tablet 2 TABLET GT (09:04)
[2025-03-02] MEDS: Aspirin E.C. 81 MG Tablet PO (09:05)
--- NOTE | 2025-03-02 10:47 | PCM.PN.ID ---
Physical Exam Narrative Feeling fine, no dyspnea, no fever Const alert and no apparent distress General Appearance: cooperative Resp normal air movement and clear to auscultation bilaterally Cardio regular rate and regular rhythm GI soft to palpation, non-tender and non-distended Skin no rashes or lesions noted ID ID: Route of nutrition/ use of supplements: [] Nutritional Intake: [] IV Site: [] Bansal Catheter: [] Assessment & Plan Assessment/Plan (1) Positive sputum culture for Pseudomonas: PLAN: Clinically appears well. CXR is clear. Reports cough and breathing status is at baseline. No records seen in epic system. No fever and normal wbc here. Goal with colonization is to save abx for true symptomatic infection. Stable off of abx, ok for discharge. Will follow prn, d/w Dr. Palacios (2) Laryngeal squamous cell carcinoma:
[2025-03-02] MEDS: Jevity 1.5 1,000 ML 50 ML GT (12:20)
--- NOTE | 2025-03-02 12:22 | PCM.DC.SUM ---
Providers Date of Admission: 02/28/25 Date of Discharge: 03/02/25 Primary Care Physician: Dr. Juan Rai, DO Consultations 02/28/25 18:48 Consult: Infectious Disease Routine Consulting Provider: Sergio Puckett Reason for Consult: reported positive sputum cx w/ resistant Pseudomonas at outside hospital EMERGENT Consult: No MD Notified: Yes Date Notified: 03/01/25 Time Notified: 06:52 Method of Notification: Text 03/02/25 08:44 Consult: Onc/Wound/directory assistance operator Routine Comment: Reason for Consult:: skin breakdown around trach collar Reason For Visit: REPORTED RESISTANT PSEUDOMONAS IN SPUTUM CULTURE Diagnosis Discharge Diagnosis (1) Positive sputum culture for Pseudomonas: Status: Acute Code(s): R84.5 - Abnormal microbiological findings in specimens from respiratory organs and thorax (2) Laryngeal squamous cell carcinoma: Status: Acute Code(s): C32.9 - Malignant neoplasm of larynx, unspecified Plan Patient is a 70-year-old lady with recent trauma with head injury and rib fractures, history of laryngeal CA status post tracheostomy and PEG tube resident is an extended care facility brought to the ED after findings of MDR?Pseudomonas in the sputum 1. Multidrug-resistant tracheitis ? Patient was found to have multidrug-resistant Pseudomonas in sputum cultures have been drawn on 02/21/2025 at [facility]. Checks x-ray did not show any evidence of infection patient had no leukocytosis and remained afebrile. Repeat cultures sent on admission started on Zosyn admitted to monitored bed with consultation placed to ID ? Case was discussed with Dr. Puckett recommended for patient to stay off antibiotics since patient was asymptomatic. 2. History of laryngeal CA ? Status post tracheostomy as well as PEG tube placement patient is on supplemental oxygen 3. Chronic hypoxic respiratory failure ? Patient is on 2 L of oxygen at baseline 4. Anemia ? Secondary to chronic disorder monitoring H&H and transfuse if patient becomes symptomatic or hemoglobin falls below 7 5. Dyslipidemia ?Patient is on statin therapy, continued at home dose 6. Chronic pain related to patient concern ? Discontinue patient home meds 7. Paroxysmal atrial fibrillation ? Rate controlled patient is on amiodarone 8. Chronic congestive heart failure with preserved ejection fraction ? Echo from November demonstrated EF of 50% with mild hypokinesis of left ventricle. Patient remains on guideline directed medical therapy 9. Chronic mild hyponatremia ? Sodium on admission was 131 patient on salt sodium tablet did continue 10. Anxiety/depression ? Stable. Continue home bupropion. 11. Chronic debility ? Case management consulted. Has lived at [facility] for about 1 year now. Plan is for patient to be discharged back to the facility after evaluation by ID 12. DVT prophylaxis ? On enoxaparin CODE STATUS: DNR CCA, okay to intubate/utilize tracheostomy for ventilator management if needed Time spent in the patient's overall evaluation,decision-making process, review of diagnostic data, adjustment of management, discussion with other providers, nursing nursing and ancillary staff involved in patient's care documentation,35 Minutes Medications at Discharge Home Medications atorvastatin 40 mg tablet 40 mg PO QHS Cholesterol #30 tabs 10/15/23 aspirin 81 mg tablet,delayed release 81 mg PO BREAKFAST #0 tabs 11/26/23 sennosides 8.6 mg-docusate sodium 50 mg tablet (Stool Softener-Stimulant Laxative) 2 tab PO BID #0 tabs 11/26/23 guaifenesin 100 mg/5 mL oral liquid (Adult Tussin Chest Congestion) 600 mg (30 mL) PO Q6H PRN congestion 5 days #500 mL 03/09/24 ipratropium 0.5 mg-albuterol 3 mg (2.5 mg base)/3 mL nebulization soln 3 ml inhalation TID #180 mL 05/13/24 acetaminophen 325 mg tablet 325 mg PO Q4H PRN fever or pain 10/03/24 bupropion HCl 75 mg tablet 150 mg PO BID 10/03/24 multivitamin 1 tab PO QDAY 10/03/24 ondansetron 4 mg disintegrating tablet 4 mg PO Q6H 10/03/24 sodium chloride 1,000 mg soluble tablet 1,000 mg PO QDAY maintainence 10/03/24 potassium chloride 20 mEq/15 mL oral liquid 15 meq feeding tube DAILY SUPPLEMENT 12/21/24 thiamine HCl (vitamin B1) 100 mg tablet (Vitamin B-1) 100 mg PO DAILY replacement 12/21/24 amiodarone 200 mg tablet 200 mg PO BID #60 tabs 12/27/24 metoprolol tartrate 25 mg tablet 12.5 mg (1/2 x 25 mg) PO BID #60 tabs 12/27/24 lactose-reduced food-fiber 0.07 gram-1.5 kcal/mL liquid for tube feed (Isosource 1.5 Nicho) 1,140 ml feeding tube DAILY 02/28/25 Physical Exam Narrative GENERAL: cooperative HEENT: Atraumatic; trach collar in place EYES; Anicteric, Normal Conjunctiva NECK; supple, normal thyroid, RESPIRATORY: Diminished to auscultation CARDIOVASCULAR: Regular S1 S2, GI: soft, normoactive bowel sounds, PEG tube in situ : No Renal angle tenderness; EXTREMITIES: No edema, no clubbing, MUSCULOSKELETAL: no muscle wasting NEURO: Awake; no lateralizing signs. SKIN: No Rash PSYCH; Flat affect Weight / BMI Weight Weight: 67.2 kg Body Mass Index (BMI) 21.9 ABG / Lab / Microbiology Data 03/02/25 05:46 03/02/25 05:46 Laboratory: Laboratory Results - last 24 hr 03/02/25 05:46: WBC 7.9, RBC 3.77 L, Hgb 10.2 L, Hct 31.1 L, MCV 82.5, MCH 27.1, MCHC 32.8, RDW Std Deviation 47.0 H, RDW Coeff of Elidia 15.6 H, Plt Count 357, MPV 9.0, Immature Gran % (Auto) 0.600, Neut % (Auto) 79.5 H, Lymph % (Auto) 5.8 L, [place] % (Auto) 11.0 H, Eos % (Auto) 2.8, Baso % (Auto) 0.3, Absolute Neuts (auto) 6.3, Absolute Lymphs (auto) 0.46 L, Nucleated RBC % 0, Sodium 132 L, Potassium 4.2, Chloride 93 L, Carbon Dioxide 29.2, Anion Gap 10, BUN 12, Creatinine 0.50 L, Estim Creat Clear Calc 81.67, Est GFR (MDRD) Non-Af 110, BUN/Creatinine Ratio 24.5 H, Glucose 110 H, Calcium 8.9, Phosphorus 2.8, Magnesium 2.0 Microbiology: Microbiology 02/28/25 15:26 Urine, Clean Catch Urine Culture - Final Culture exhibits no growth. 02/28/25 15:00 Sputum, Tracheal Aspirate Gram Stain - Final 02/28/25 15:00 Sputum, Tracheal Aspirate Respiratory Culture - Preliminary GNR Poss Pseudomonas sp D/C Instructions Discharge Activity: Return to Normal Activity Call your doctor if you observe: Fever of 101 or Higher, Shortness of breath, Fainting spells and Chest pain DC O2, CPAP, BIPAP Needs Home O2 Discharge instructions: Yes Type of respiratory needs?: Oxygen Oxygen frequency: Continuous Continuous oxygen liters per minute: 2 DC home with Oxygen: Yes Home O2 MD Review: I have reviewed the oxygen testing, and the patient qualifies for home oxygen equipment and portability. The patient is mobile in the home and the community. Meaningful Use Info Meaningful Use Meaningful Use Diagnoses (Choose all that apply): None applicable Discharge Plan Admission Admit Date/Time: 02/28/25 17:50 Attending Provider: Mickey Palacios Primary Care Provider: Juan Rai Consulting Providers: Sen Gotti; Sergio Puckett Discharge Orders/Prescriptions Prescriptions: Continued ipratropium-albuterol 0.5 mg-3 mg(2.5 mg base)/3 mL solution for nebulization 3 ml inhalation TID Qty: 180 11RF acetaminophen 325 mg tablet 325 mg PO Q4H PRN (Reason: fever or pain) bupropion HCl 75 mg tablet 150 mg PO BID multivitamin Tablet 1 tab PO QDAY ondansetron 4 mg tablet,disintegrating 4 mg PO Q6H sodium chloride 1,000 mg tablet,soluble 1,000 mg PO QDAY atorvastatin 40 mg Tablet 40 mg PO QHS Qty: 30 2RF guaifenesin [Adult Tussin Chest Congestion] 100 mg/5 mL liquid 600 mg PO Q6H PRN (Reason: congestion) 5 Days Qty: 500 11RF Isosource 1.5 Nicho 0.07 gram-1.5 kcal/mL liquid 1,140 ml feeding tube DAILY Rx Instructions: 60cc/hr , 1 time a day flush with 45cc/hr continuously while TV running for a totla of 1080cc of water sennosides-docusate sodium [Stool Softener-Stimulant Laxat] 8.6-50 mg Tablet 2 tab PO BID Qty: 0 0RF aspirin 81 mg Tablet,Delayed Release (Dr/Ec) 81 mg PO BREAKFAST Qty: 0 0RF potassium chloride 20 mEq/15 mL liquid 15 meq feeding tube DAILY thiamine HCl (vitamin B1) [Vitamin B-1] 100 mg Tablet 100 mg PO DAILY amiodarone 200 mg Tablet 200 mg PO BID Qty: 60 2RF Rx Instructions: to take one tablet (200mg) twice daily x 1 month, then to follow with 200mg (one tablet) daily metoprolol tartrate 25 mg Tablet 12.5 mg PO BID Qty: 60 2RF Referrals / Follow Up: Juan Rai DO [Primary Care Provider, Hospitalist] Disposition Disposition (needs filled in before D/C Order can be placed): [facility] Facility Charges/Coding Visit Charges Inpatient E&M: 36416 Disch Hosp >30min
--- NOTE | 2025-03-02 13:04 | TREXTCAR_ITS ---
Diet Diet Order/Speech Therapy: INPATIENT Hospital Diet / Speech Therapy Order(s) 02/28/25 18:48 Diet: Nothing Per Oral Routine Orders/Code Status Suppository Type: Dulcolax 10mg Suppository Frequency: Daily PRN Code Status: DNRCC-A DC O2, CPAP, BIPAP needs Home O2 Discharge instructions: Yes Type of respiratory needs?: Oxygen Oxygen frequency: Continuous Continuous oxygen liters per minute: 2 Therapies Physical Therapy: Eval and Treat Occupational Therapy: Eval and Treat Problem/Diagnosis (1) Positive sputum culture for Pseudomonas: Status: Acute Code(s): R84.5 - Abnormal microbiological findings in specimens from respiratory organs and thorax (2) Laryngeal squamous cell carcinoma: Status: Acute Code(s): C32.9 - Malignant neoplasm of larynx, unspecified Comment: Laryngeal cancer-squamous cell carcinoma, cT3 cN0 s/p tracheostomy. On chemotherapy-Taxol + Carboplatin weekly and Radiation for voice preservation. Completed 6 cycles weekly Taxol carboplatin on 01/04/2024. PET/CT on 04/05/2024 was negative. On observation, comes for follow up. No clinical evidence of disease. Plan Patient is a 70-year-old lady with recent trauma with head injury and rib fractures, history of laryngeal CA status post tracheostomy and PEG tube resident is an extended care facility brought to the ED after findings of MDR?Pseudomonas in the sputum 1. Multidrug-resistant tracheitis ? Patient was found to have multidrug-resistant Pseudomonas in sputum cultures have been drawn on 02/21/[address] [facility]. Checks x-ray did not show any evidence of infection patient had no leukocytosis and remained afebrile. Repeat cultures sent on admission started on Zosyn admitted to monitored bed with consultation placed to ID ? Case was discussed with Dr. Puckett recommended for patient to stay off antibiotics since patient was asymptomatic. 2. History of laryngeal CA ? Status post tracheostomy as well as PEG tube placement patient is on supplemental oxygen 3. Chronic hypoxic respiratory failure ? Patient is on 2 L of oxygen at baseline 4. Anemia ? Secondary to chronic disorder monitoring H&H and transfuse if patient becomes symptomatic or hemoglobin falls below 7 5. Dyslipidemia ?Patient is on statin therapy, continued at home dose 6. Chronic pain related to patient concern ? Discontinue patient home meds 7. Paroxysmal atrial fibrillation ? Rate controlled patient is on amiodarone 8. Chronic congestive heart failure with preserved ejection fraction ? Echo from November demonstrated EF of 50% with mild hypokinesis of left ventricle. Patient remains on guideline directed medical therapy 9. Chronic mild hyponatremia ? Sodium on admission was 131 patient on salt sodium tablet did continue 10. Anxiety/depression ? Stable. Continue home bupropion. 11. Chronic debility ? Case management consulted. Has lived at [facility] for about 1 year now. Plan is for patient to be discharged back to the facility after evaluation by ID 12. DVT prophylaxis ? On enoxaparin CODE STATUS: DNR CCA, okay to intubate/utilize tracheostomy for ventilator management if needed Time spent in the patient's overall evaluation,decision-making process, review of diagnostic data, adjustment of management, discussion with other providers, nursing nursing and ancillary staff involved in patient's care documentation,35 Minutes Allergies/Procedures Done in Hospital Allergies No Known Allergies Allergy (Verified 02/28/25 13:09) Type of Care/Length of Stay Estimated LOS: More Than 30 Days Type of Care Needed: Intermediate Rehab Potential: Fair Prognosis: Fair Additional Orders/Day of Discharge Day of Discharge: 03/02/25 Dietary and Speech Recommendations Dietitian Recommendations/Changes: NPO; with continued enteral nutrition support via PEG tube: Will decrease rate of Jevity 1.5 Nicho to 50 mL/hr to provide 1800 kcal, 77 gm protein and 912 mL free water per day. Will add 150mL water flush Q 4 hours for additional 900mL/water per day. Will monitor TF tolerance, weight, labs and follow-up with TF adjustments as needed. Discharge Plan Admission Admit Date/Time: 02/28/25 17:50 Attending Provider: Mickey Palacios Primary Care Provider: Juan Rai Consulting Providers: Sen Gotti; Sergio Puckett Discharge Orders/Prescriptions Prescriptions: Continued ipratropium-albuterol 0.5 mg-3 mg(2.5 mg base)/3 mL solution for nebulization 3 ml inhalation TID Qty: 180 11RF acetaminophen 325 mg tablet 325 mg PO Q4H PRN (Reason: fever or pain) bupropion HCl 75 mg tablet 150 mg PO BID multivitamin Tablet 1 tab PO QDAY ondansetron 4 mg tablet,disintegrating 4 mg PO Q6H sodium chloride 1,000 mg tablet,soluble 1,000 mg PO QDAY atorvastatin 40 mg Tablet 40 mg PO QHS Qty: 30 2RF guaifenesin [Adult Tussin Chest Congestion] 100 mg/5 mL liquid 600 mg PO Q6H PRN (Reason: congestion) 5 Days Qty: 500 11RF Isosource 1.5 Nicho 0.07 gram-1.5 kcal/mL liquid 1,140 ml feeding tube DAILY Rx Instructions: 60cc/hr , 1 time a day flush with 45cc/hr continuously while TV running for a totla of 1080cc of water sennosides-docusate sodium [Stool Softener-Stimulant Laxat] 8.6-50 mg Tablet 2 tab PO BID Qty: 0 0RF aspirin 81 mg Tablet,Delayed Release (Dr/Ec) 81 mg PO BREAKFAST Qty: 0 0RF potassium chloride 20 mEq/15 mL liquid 15 meq feeding tube DAILY thiamine HCl (vitamin B1) [Vitamin B-1] 100 mg Tablet 100 mg PO DAILY amiodarone 200 mg Tablet 200 mg PO BID Qty: 60 2RF Rx Instructions: to take one tablet (200mg) twice daily x 1 month, then to follow with 200mg (one tablet) daily metoprolol tartrate 25 mg Tablet 12.5 mg PO BID Qty: 60 2RF Referrals / Follow Up: Juan Rai DO [Primary Care Provider, Hospitalist] Disposition Disposition (needs filled in before D/C Order can be placed): Longterm Facility
--- NOTE | 2025-03-02 13:08 | CASEMGMT ---
Social Work Per physician patient is ready for discharge. DC assistant distribution manager is completing the DC process. SHAKIR Ruff
--- NOTE | 2025-03-02 13:58 | NURSING ---
Attempted to call [facility] to give report on patient, they did not answer. Message left to return call to this RN for report.
--- NOTE | 2025-03-02 15:37 | CASEMGMT ---
Discharge Planning Discharge orders, signed med list, and transport time sent to [facility]. Physicians will transport pt by cot at 2p. Nursing, SW, pt, and his daughter (Georgina) updated. Alka Valderrama DC Planning Asst.
== END 2025-03-02 14:39 | DRG 202 ==
LOC: ED 17:42 → PCU 18:13
PROVIDERS: Admitting Provider Hospitalist; Emergency Provider Emergency Medicine; PCP Internal Medicine; Visit Provider Internal Medicine
DX: J04.10 Acute tracheitis without obstruction (principal); E87.1 Hypo-osmolality and hyponatremia; J96.11 Chronic respiratory failure with hypoxia; I50.32 Chronic diastolic (congestive) heart failure; Z16.35 Resistance to multiple antimicrobial drugs; Z93.0 Tracheostomy status; D63.8 Anemia in other chronic diseases classified elsewhere; B96.5 Pseudomonas (aeruginosa) (mallei) (pseudomallei) as the cause of diseases classified elsewhere; Z66 Do not resuscitate; Z99.81 Dependence on supplemental oxygen; J44.9 Chronic obstructive pulmonary disease, unspecified; F10.20 Alcohol dependence, uncomplicated; F32.A Depression, unspecified; I48.0 Paroxysmal atrial fibrillation; Z93.1 Gastrostomy status; E78.00 Pure hypercholesterolemia, unspecified; F41.9 Anxiety disorder, unspecified; Y90.9 Presence of alcohol in blood, level not specified; G89.29 Other chronic pain; Z79.51 Long term (current) use of inhaled steroids; Z79.82 Long term (current) use of aspirin; Z79.899 Other long term (current) drug therapy; Z85.21 Personal history of malignant neoplasm of larynx; Z87.891 Personal history of nicotine dependence
CPT/HCPCS: 31720; 36415; 71045; 80048; 80053; 81001; 83605; 83735; 84100; 85025; 85027; 85730; 87040; 87070; 87077; 87086; 87186; 87205; 93005; 94640; 97802; 99285; A4216

== ENCOUNTER 2025-03-21 08:12 | Inpatient (IN) | payer MEDICARE, MEDICAID, SELFPAY ==
[2025-03-21] VITALS (50 sets, daily range): BP systolic 74–142; BP diastolic 54–117; PULSE 82–139; RESP 16–29; TEMP 36.6–36.9; O2SAT 85–100; BMI 24.2; BMI 22.5
--- NOTE | 2025-03-21 08:27 | CT_ITS ---
PROCEDURE: ABDOMEN/PELVIS W IV CONT ONLY 03/21/2025 REASON FOR EXAM: ABDOMINAL PAIN Nausea and vomiting. History of laryngeal carcinoma. TECHNIQUE: Procedure Code: [id number] Modality: CT Procedure: ABDOMEN/PELVIS W IV CONT ONLY Coronal and Sagittal reconstruction series were provided. CONTRAST: Isovue 370 VOLUME: 100 mL One or more dose reduction techniques were used (e.g., Automated exposure control, adjustment of the mA and/or kV according to patient size, use of iterative reconstruction technique. RADIATION DOSE SUMMARY: CTDlvol: 12.6 mGy DLP: 822.71 mGycm COMPARISON: None FINDINGS: Lung bases: Minimal pleural thickening at the left lung base with increased linear markings at the bases more pronounced at the left base suggestive of possible early infiltrate or scarring. Coronary artery calcification. Liver: Normal size. No mass. Questionable tiny cyst in the inferior aspect of the right lobe of the liver as well as in the anterior aspect of the midportion of the right lobe of the liver. Gallbladder: Unremarkable Spleen: Normal size. Pancreas: Normal size without evidence of mass surrounding inflammation or ductal dilation. Adrenals: Minimal thickening of the left adrenal gland. Kidneys: Tiny nonobstructive calculus in the upper pole calyx of the left kidney. No evidence of hydronephrosis or renal mass. Bladder: Unremarkable Prostate is unremarkable. Bowel: Large amount of fecal material is seen in the rectum suggestive of fecal Abbie. Fecal material is also seen in the right hemicolon. Scattered sigmoid diverticula. Appendix: The appendix is not identified. There is no inflammatory process identified in the right lower quadrant to suggest appendicitis. Lymph nodes: No suspicious lymph node enlargement. Vasculature: Atherosclerotic plaque formation of the abdominal aorta and the major visceral branches. Peritoneum / Retroperitoneum: Unremarkable Bones: Degenerative changes of the spine. CT/Abdomen/Pelvis W IV Cont ONLY IMPRESSION: Large amount of fecal material suggestive of an fecal Abbie in the rectum. Scatt ered fecal material seen throughout the colon. Minimal thickening of the left adrenal gland. Nonobstructive tiny calculus in the upper pole calyx of the left kidney. Minimal left pleural thickening with left basilar scarring and/or early infiltr ate. Reading Location: [place] [id number]
--- NOTE | 2025-03-21 08:38 | EX.ED.DYSGE1 ---
HPI History of Present Illness Chief Complaint: GI Bleed Narrative Narrative: 70-year-old male past medical history of tracheostomy and PEG tube presents for multiple reasons from senior care facility. Although history and physical is limited secondary to his tracheostomy, it was reported by group home that patient reportedly was having hemorrhage from his PEG tube site yesterday. He states that he has had it for years. While the site has stopped bleeding, patient states he has not had a bowel movement in about 3 days. Reportedly, he had x-rays performed that showed he had an ileus so his feedings were stopped for the last 24 hours. 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 Anemia Herpes zoster Depression Former smoker On home oxygen therapy Atrial fibrillation Cardiomyopathy Alcoholism Esophageal mass Hyperlipidemia Chronic HFrEF (heart failure with reduced ejection fraction) Laryngeal mass Debility Wears dentures Wears glasses Cardiology follow-up encounter Difficulty swallowing Smoker High cholesterol COPD (chronic obstructive pulmonary disease) History of CHF (congestive heart failure) Agoraphobia CHF exacerbation Medical non-compliance Alcohol abuse Tobacco abuse Acute hypoxic respiratory failure Home Medications ?Medication ?Instructions ?Recorded ?Last Taken ?Type atorvastatin 40 mg tablet 40 mg PO QHS Cholesterol #30 tabs 10/15/23 02/27/25 Rx aspirin 81 mg tablet,delayed 81 mg PO BREAKFAST #0 tabs 11/26/23 02/28/25 Rx release sennosides 8.6 mg-docusate sodium 2 tab PO BID #0 tabs 11/26/23 12/21/24 Rx 50 mg tablet (Stool Softener-Stimulant Laxative) ipratropium 0.5 mg-albuterol 3 mg 3 ml inhalation TID #180 mL 05/13/24 12/21/24 Rx (2.5 mg base)/3 mL nebulization soln acetaminophen 325 mg tablet 325 mg PO Q4H PRN fever or pain 10/03/24 Unknown History bupropion HCl 75 mg tablet 150 mg PO BID 10/03/24 12/21/24 History multivitamin 1 tab PO QDAY 10/03/24 02/28/25 History ondansetron 4 mg disintegrating 4 mg PO Q6H 10/03/24 11/04/24 History tablet sodium chloride 1,000 mg soluble 1,000 mg PO BID maintainence 10/03/24 12/21/24 History tablet potassium chloride 20 mEq/15 mL 15 meq feeding tube DAILY 12/21/24 12/21/24 History oral liquid SUPPLEMENT thiamine HCl (vitamin B1) 100 mg 100 mg PO DAILY replacement 12/21/24 12/21/24 History tablet (Vitamin B-1) amiodarone 200 mg tablet 200 mg PO BID #60 tabs 12/27/24 Unknown Rx metoprolol tartrate 25 mg tablet 12.5 mg (1/2 x 25 mg) PO BID #60 12/27/24 Unknown Rx tabs lactose-reduced food-fiber 0.07 1,140 ml feeding tube DAILY 02/28/25 Unknown History gram-1.5 kcal/mL liquid for tube feed (Isosource 1.5 Nicho) guaifenesin 100 mg/5 mL oral 600 mg PO Q6H congestion 03/21/25 Unknown History liquid (Adult Tussin Chest Congestion) ipratropium 0.5 mg-albuterol 3 mg 3 ml inhalation Q4H PRN shortness 03/21/25 Unknown History (2.5 mg base)/3 mL nebulization of breath soln menthol 0.44 %-zinc oxide 20.6 % 1 applic topical TID 03/21/25 Unknown History topical ointment in packet (Calmoseptine) mineral oil-hydrophil petrolat 1 applic topical TID PRN dry skin 03/21/25 Unknown History topical ointment selenium sulfide 1 % shampoo 1 applic topical MOWEFR 03/21/25 Unknown History (Selsun Blue) sennosides 8.6 mg tablet (Laxative 8.6 mg feeding tube BID 03/21/25 Unknown History (sennosides)) Allergy/AdvReac Type Severity Reaction Status Date / Time No Known Allergies Allergy Verified 03/21/25 08:18 Family History Father Pacemaker Surgical History History of tracheostomy History of laryngoscopy History of surgery Social History household members: none current occupational status: retired Smoking Status: Former smoker alcohol intake: current alcohol intake frequency: 3 or more drinks per day Alcohol type: beer details: 6 24 ounce cans of beer daily. substance use type: does not use caffeine: Yes Type: coffee ROS ROS ED ROS Narrative Limited secondary to tracheostomy. However, patient has a white board and can whisper. Reported PEG site bleeding yesterday. Small amount of bowel movements over the last 3 days. Diffuse abdominal pain. EXAM Physical Exam Narrative Exam Narrative: Afebrile. Vital signs noted. Nontoxic-appearing. Positive tracheostomy. Cardiovascular examination regular rate and rhythm. Diffuse rhonchi on lung auscultation bilaterally with occasional expiratory wheeze. No distress. Abdomen is soft and nontender with positive bowel sounds. Positive PEG tube with dried blood surrounding site. Mildly cachectic. Const Vital Signs: 03/21/25 08:15 03/21/25 08:42 03/21/25 09:41 Temperature 97.9 F Temperature Source Oral Pulse Rate 95 82 Respiratory Rate 20 H 16 Blood Pressure 142/117 H 101/66 Blood Pressure Mean 125 77 Pulse Ox 96 94 86 Oxygen Delivery Method Trach Collar Trach Collar Oxygen Flow Rate (L/min) 4 03/21/25 09:45 03/21/25 09:45 03/21/25 10:00 Temperature Temperature Source Pulse Rate Respiratory Rate Blood Pressure 110/58 L 81/64 L Blood Pressure Mean 75 72 Pulse Ox 95 92 Oxygen Delivery Method Venturi Mask Oxygen Flow Rate (L/min) 6 03/21/25 10:01 03/21/25 10:14 03/21/25 10:19 Temperature Temperature Source Pulse Rate 131 H Respiratory Rate 21 H Blood Pressure 75/56 L Blood Pressure Mean 62 Pulse Ox 92 95 93 Oxygen Delivery Method Trach Collar Oxygen Flow Rate (L/min) 6 03/21/25 10:21 03/21/25 10:25 03/21/25 10:28 Temperature 97.9 F Temperature Source Oral Pulse Rate 124 H 123 H Respiratory Rate 19 H 22 H Blood Pressure 86/63 L 76/54 L 76/54 L Blood Pressure Mean 71 63 61 Pulse Ox 95 94 95 Oxygen Delivery Method Oxygen Flow Rate (L/min) 03/21/25 10:30 03/21/25 10:35 03/21/25 10:40 Temperature Temperature Source Pulse Rate 139 H 116 H 134 H Respiratory Rate 19 H 21 H 26 H Blood Pressure 75/56 L 74/57 L 90/58 L Blood Pressure Mean 65 65 68 Pulse Ox 94 95 95 Oxygen Delivery Method Oxygen Flow Rate (L/min) 03/21/25 10:45 03/21/25 10:52 03/21/25 10:55 Temperature Temperature Source Pulse Rate 127 H 114 H 117 H Respiratory Rate 22 H 21 H 20 H Blood Pressure 105/60 85/69 L 97/60 Blood Pressure Mean 74 76 73 Pulse Ox 95 96 96 Oxygen Delivery Method Oxygen Flow Rate (L/min) 03/21/25 11:00 03/21/25 11:05 03/21/25 11:10 Temperature Temperature Source Pulse Rate 119 H 95 Respiratory Rate 24 H 25 H Blood Pressure 87/60 L 86/68 L 96/60 Blood Pressure Mean 68 73 71 Pulse Ox 96 96 Oxygen Delivery Method Oxygen Flow Rate (L/min) 03/21/25 11:15 03/21/25 11:20 03/21/25 11:25 Temperature Temperature Source Pulse Rate 126 H 127 H 120 H Respiratory Rate 25 H 21 H 24 H Blood Pressure 88/62 L 97/75 Blood Pressure Mean 70 82 Pulse Ox 97 96 94 Oxygen Delivery Method Oxygen Flow Rate (L/min) 03/21/25 11:30 03/21/25 11:35 03/21/25 11:41 Temperature Temperature Source Pulse Rate 128 H 109 H 107 H Respiratory Rate 23 H 21 H 24 H Blood Pressure 102/82 H 101/64 90/61 Blood Pressure Mean 89 72 70 Pulse Ox 96 98 Oxygen Delivery Method Oxygen Flow Rate (L/min) 03/21/25 11:45 03/21/25 11:50 03/21/25 11:55 Temperature Temperature Source Pulse Rate 109 H 114 H 104 H Respiratory Rate 21 H 21 H 21 H Blood Pressure 87/63 L 88/57 L 82/60 L Blood Pressure Mean 73 69 67 Pulse Ox 96 96 94 Oxygen Delivery Method Oxygen Flow Rate (L/min) 03/21/25 12:00 03/21/25 12:05 03/21/25 12:15 Temperature Temperature Source Pulse Rate 115 H 116 H 114 H Respiratory Rate 20 H 19 H 17 Blood Pressure 86/69 L 95/71 Blood Pressure Mean 75 80 Pulse Ox 96 94 95 Oxygen Delivery Method Oxygen Flow Rate (L/min) 03/21/25 12:30 03/21/25 12:35 03/21/25 12:40 Temperature Temperature Source Pulse Rate 112 H 116 H 112 H Respiratory Rate 29 H 24 H 22 H Blood Pressure 92/64 89/60 L Blood Pressure Mean 75 71 Pulse Ox 85 93 94 Oxygen Delivery Method Oxygen Flow Rate (L/min) Sepsis Attestation Sepsis Alert: Yes Sepsis Attestation: Agree w/Sepsis Date exam was performed: 03/21/25 Time exam was performed: 11:05 Possible Source of Sepsis: Pulmonary Sepsis Organ Dysfunction Criteria Present: SBP < 90 mmHg or MAP < 65 mmHg and SBP decrease of more than 40 mmHg Fluid Resuscitation Fluid resuscitation indicated?: Yes Fluid Resuscitation ordered: 30 ml/kg fluid bolus ordered Sepsis Note Date exam was performed: 03/21/25 Time exam was performed: 12:07 Response to fluids: Fluid responsive hypotension MDM MDM MDM Narrative Medical decision making narrative: Differential diagnosis includes but not limited to ileus versus small bowel obstruction. I do feel that his PEG tube site probably did have capillary bleeding, but there is currently no active hemorrhaging. I do not feel that this is an upper GI bleed. His laboratory work will be checked for anemia. As he has not had his tube feeds reportedly in 24 hours, he may be dehydrated or have an electrolyte imbalance as well. I do feel CT imaging is indicated given his reported x-ray and ileus. EKG was obtained and interpreted by myself independently as atrial fibrillation with rapid ventricular response at [address] changes. No STEMI. I do not feel he needs rate control medication as current heart rate is ranged from 95 to 109 bpm. I reviewed his laboratory work, and he has a leukocytosis of 23.6 with hemoglobin stable at 9.9 when compared to prior labs, hematocrit 31.6. I do not feel he requires transfusion from this reported localized bleeding from the PEG tube site. Sodium is normal at 133 with potassium 4.7, chloride low at 92 which I think is nonspecific, carbon dioxide elevated at 34.9 consistent with his respiratory status. BUN of 24 and creatinine 0.67 which shows mild dehydration. Glucose 117, anion gap 6. LFTs show ALT of 48 which I also think is nonspecific, lipase 23. Given his leukocytosis, concern was for sepsis. Coagulation studies obtained and INR is negative/normal at 1.3. Lactic acid normal at 1.4. He did have transient drop in his blood pressure to 74 systolic but it was fluid responsive. Current systolic pressure 101. I reviewed the radiology report of the CT of the abdomen and pelvis. He does have a large amount of stool in the colon and may have a fecaloma in the rectum. He was given GoLytely orally. For additional sepsis workup, I obtained a UA which is negative for infection. Chest x-ray interpreted by myself independently shows small left pleural effusion and left airspace disease. I reviewed the radiology report which confirms my independent interpretation. As he is a group home resident, he was treated for HCAP. I feel this would be more beneficial to the patient. Blood cultures are pending. At this point in time, patient discussed with the hospitalist for admission. In discussion with Dr. Gotti, he would like meropenem 1 g given as well as his Pseudomonas was resistant to Zosyn. Additionally, he requested that manual disimpaction be performed, however, patient feels like he has to have a bowel movement and wants to attempt on the bedside commode first. Patient reportedly did have a small bowel movement. Chaperoned rectal examination was performed for attempted manual disimpaction. However, there is no hard stool in the rectal vault at finger length distance. Disposition is admitted to the PCU in stable condition. History & Record Review Discussion w/independent historian: EMS personnel, Patient and Other ([facility] facility) Additional record(s) reviewed:: Prior ED visit and Prior labs Lab Data Attestation: I reviewed the patient's lab results. Labs: Laboratory Results - last 24 hr 03/21/25 03/21/25 03/21/25 08:39 09:57 10:14 WBC 23.6 H RBC 3.76 L Hgb 9.9 L Hct 31.6 L MCV 84.0 MCH 26.3 L MCHC 31.3 L RDW Std Deviation 49.4 H RDW Coeff of Elidia 16.1 H Plt Count 267 MPV 9.5 Immature Gran % (Auto) 0.600 Neut % (Auto) 85.0 H Lymph % (Auto) 3.0 L Divide % (Auto) 11.2 H Eos % (Auto) 0.0 Baso % (Auto) 0.2 Absolute Neuts (auto) 20.1 H Absolute Lymphs (auto) 0.72 L Nucleated RBC % 0 PT INR APTT Sodium 133 Potassium 4.7 Chloride 92 L Carbon Dioxide 34.9 H Anion Gap 6 BUN 24 H Creatinine 0.67 L Estim Creat Clear Calc 85.92 Est GFR (MDRD) Non-Af 101 BUN/Creatinine Ratio 35.4 H Glucose 117 H Lactic Acid 1.4 Calcium 9.3 Total Bilirubin 0.29 AST 38 ALT 48 H Alkaline Phosphatase 110 Total Protein 6.9 Albumin 3.5 Globulin 3.4 Albumin/Globulin Ratio 1.0 Lipase 23 Urine Color Yellow Urine Clarity Clear Urine pH 7.0 Ur Specific [place] 1.010 Urine Protein 15 H Urine Glucose (UA) Normal Urine Ketones Negative Urine Occult Blood 10 H Urine Nitrite Negative Urine Bilirubin Negative Urine Urobilinogen Normal Ur Leukocyte Esterase Negative Urine RBC 0 SEEN Urine WBC 0 SEEN Ur Squamous Epith Cells 0-5 SEEN Urine Bacteria 0 SEEN Urine Mucus 0 SEEN 03/21/25 11:03 WBC RBC Hgb Hct MCV MCH MCHC RDW Std Deviation RDW Coeff of Elidia Plt Count MPV Immature Gran % (Auto) Neut % (Auto) Lymph % (Auto) Divide % (Auto) Eos % (Auto) Baso % (Auto) Absolute Neuts (auto) Absolute Lymphs (auto) Nucleated RBC % PT 16.4 H INR 1.3 APTT 36.7 H Sodium Potassium Chloride Carbon Dioxide Anion Gap BUN Creatinine Estim Creat Clear Calc Est GFR (MDRD) Non-Af BUN/Creatinine Ratio Glucose Lactic Acid Calcium Total Bilirubin AST ALT Alkaline Phosphatase Total Protein Albumin Globulin Albumin/Globulin Ratio Lipase Urine Color Urine Clarity Urine pH Ur Specific [place] Urine Protein Urine Glucose (UA) Urine Ketones Urine Occult Blood Urine Nitrite Urine Bilirubin Urine Urobilinogen Ur Leukocyte Esterase Urine RBC Urine WBC Ur Squamous Epith Cells Urine Bacteria Urine Mucus Radiography Diagnostic Testing: Clinical Impression(s) from Imaging Studies Abdomen/Pelvis CT 03/21/25 08:27 IMPRESSION: Large amount of fecal material suggestive of an fecal Abbie in the rectum. Scattered fecal material seen throughout the colon. Minimal thickening of the left adrenal gland. Nonobstructive tiny calculus in the upper pole calyx of the left kidney. Minimal left pleural thickening with left basilar scarring and/or early infiltrate. Reading Location: [id number] Chest X-Ray 03/21/25 09:48 IMPRESSION: Tracheostomy tube remains in place. Stable positioning of right subclavian central venous catheter with port. Generalized osteopenia is seen. No interval osseous changes noted. Question of a small left pleural effusion. Left basilar airspace disease is seen, with differential diagnosis including atelectasis and pneumonitis. No significant pulmonary edema is noted. No pneumothorax is seen. The cardiomediastinal silhouette is stable, without evidence of cardiomegaly. Reading Location: [address] Discharge Plan Dx/Rx/DC Orders Clinical Impression: Pneumonia, Leukocytosis, Hypochloremia, Bleeding, Fecaloma Disposition Disposition: Acute Care Hospital [facility] Discharge Date/Time: 03/21/25 13:32
[2025-03-21] MEDS: 0.9% Normal Saline (1000mL) 1,000 ML 125 ML IV ×2 (08:41→18:16)
[2025-03-21 08:49] LABS: Hematocrit 31.6 % (40-54); Hemoglobin 9.9 g/dL (13.0-16.5); Immature Granulocytes Count 0.150 X10^3/uL (0.0-0.0); Mean Corp Hgb Conc 31.3 g/dL (32-36); Mean Corpuscular Volume 84.0 fL (80-94); Mean Platelet Vol. 9.5 fl (6.2-12.0); NRBC Flagged by Analyzer 0 % (0-5); POSITIVE DIFFERENTIAL YES; Platelet Count 267 K/mm3 (150-450); RBC Distribution Width CV 16.1 % (11.6-14.6); RBC Distribution Width SD 49.4 fl (35.1-43.9); Red Blood Count 3.76 M/mm3 (4.6-6.2); White Blood Count 23.6 K/mm3 (4.4-11.0)
[2025-03-21 09:17] LABS: Differential Indicated SCAN CRITERIA MET
[2025-03-21 09:22] LABS: AST(SGOT) 38 U/L (<=37); Alanine Aminotransfer ALT/SGPT 48 U/L (<=46); Albumin, Serum 3.5 g/dL (3.4-4.8); Alkaline Phosphatase 110 U/L (40-129); Anion Gap 6 (5-15); BUN 24 mg/dL (4-19); BUN/Creat Ratio 35.4 RATIO (10-20); Calcium,Total 9.3 mg/dL (7.6-11.0); Carbon Dioxide 34.9 mmol/L (21.0-32.0); Chloride 92 mmol/L (98-108); Estimated Creatinine Clearance 85.92 ml/min (50-250); Globulin 3.4 g/dL (2.2-4.2); Glucose 117 mg/dL (70-99); Lipase 23 U/L (13-75); Potassium 4.7 mmol/L (3.3-5.1)
--- NOTE | 2025-03-21 09:48 | RAD_ITS ---
PROCEDURE: CHEST 1 VIEW (PORTABLE) 03/21/2025 REASON FOR EXAM: SHORTNESS OF BREATH TECHNIQUE: Frontal view of the chest. COMPARISON: AP chest of 02/28/2025. RAD/Chest 1 View (Portable) IMPRESSION: Tracheostomy tube remains in place. Stable positioning of right subclavian central venous catheter with port. Generalized osteopenia is seen. No interval osseous changes noted. Question of a small left pleural effusion. Left basilar airspace disease is seen, with differential diagnosis including at electasis and pneumonitis. No significant pulmonary edema is noted. No pneumothorax is seen. The cardiomediastinal silhouette is stable, without evidence of cardiomegaly. Reading Location: [id number]
[2025-03-21 10:23] LABS: Mucous, Urine 0 SEEN /hpf (<or=2+); Red Blood Cells-Urine 0 SEEN /hpf (0-5)
[2025-03-21 10:25] LABS: Color, Urine Yellow (Yellow); Glucose, Dipstick Normal (Normal); Ketone-Dipstick Negative (Negative); Leukocyte Esterase-Dipstick Negative /ul (Negative); Nitrite-Dipstick Negative (Negative); Occult Blood-Urine 10 /ul (Negative); Protein-Dipstick 15 mg/dl (Negative); Specific Gravity, Urine 1.010 (1.002-1.030); Urine Bilirubin Dipstick Negative (Negative)
[2025-03-21 10:35] LABS: Squamous Epithelial Cells - UA 0-5 SEEN /hpf (0-5)
[2025-03-21] MEDS: 0.9% Normal Saline (1000mL) 1,000 ML 999 ML IV ×3 (10:37→12:20)
--- NOTE | 2025-03-21 10:45 | ED.RN ---
Go-lyte held at this time due to patient's unstable hypotension. Fluid resuscitation intitiated.
[2025-03-21] MEDS: Piperacil/Tazobactam 4.5 GM in 0.9% Normal Saline (100mL MB+) 100 ML IV (10:54)
--- NOTE | 2025-03-21 11:00 | EKG12_ITS ---
Test Reason : INCREASED HR Blood Pressure : */* mmHG Vent. Rate : 121 BPM Atrial Rate : * BPM P-R Int : * ms QRS Dur : 92 ms QT Int : 348 ms P-R-T Axes : * -44 95 degrees QTcB Int : 494 ms Atrial fibrillation with rapid ventricular response Left axis deviation Nonspecific ST and T wave abnormality Abnormal ECG Confirmed by Carlito Martell ([id number]), content editor SRAVANTHI GALO ([id number]) on 03/22/2025 1:50:32 PM Referred By: KRISTIN Confirmed By: Carlito Martell
[2025-03-21 11:18] LABS: Prothrombin Time (Protime)PT. 16.4 SECONDS (11.7-14.9)
[2025-03-21 11:19] LABS: Partial Thromboplast Time 36.7 Seconds (24.1-36.2)
--- NOTE | 2025-03-21 11:29 | EKG12_ITS ---
Test Reason : TACHY Blood Pressure : */* mmHG Vent. Rate : 122 BPM Atrial Rate : * BPM P-R Int : * ms QRS Dur : 110 ms QT Int : 340 ms P-R-T Axes : * 39 246 degrees QTcB Int : 484 ms Atrial fibrillation with rapid ventricular response Indeterminate axis Nonspecific ST abnormality Abnormal QRS-T angle, consider primary T wave abnormality Abnormal ECG When compared with ECG of 21-Mar-2025 11:00, MANUAL COMPARISON REQUIRED DATA IS UNCONFIRMED Confirmed by Carlito Martell ([id number]), editorial assistant SRAVANTHI GALO ([id number]) on 03/22/2025 9:16:41 AM Referred By: Confirmed By: Carlito Martell
[2025-03-21] MEDS: Vancomycin HCl 1,750 MG in 0.9% Normal Saline (500mL Bag) 500 ML 250 MG IV (11:30)
--- NOTE | 2025-03-21 12:16 | PCM.HP.STD ---
HPI - General General Date of Admission: 03/21/25 Date of Service: 03/21/25 Chief Complaint: Dehydration, concern for PEG tube site bleeding HPI Narrative CHACORTA CONCEPCION, is a 70 M who presented to [facility] on 03/21/2025 from his extended care facility for multiple concerns including dehydration and concern for PEG tube site bleeding. Medical history significant for tracheostomy secondary to laryngeal cancer with PEG tube placement, chronic respiratory failure on 2 L nasal cannula baseline, paroxysmal A-fib not on anticoagulation due to history of PEG tube site bleeding, heart failure with recovered ejection fraction and anxiety/depression. Patient was recently hospitalized here from 02/28-03/02. He presented at that time with a reported positive sputum culture for multidrug-resistant Pseudomonas. ID followed and it was suspected that this is secondary to colonization, and patient was stable for discharge back to his ECF on 03/02. Patient is essentially nonverbal at baseline due to his tracheostomy, utilizes whiteboard for communication. He has reportedly had some bleeding on the PEG tube site for the past few days and staff at [facility] was concerned about this. He has also had elevated heart rate at times concerning for paroxysmal A-fib with RVR and has appeared more dehydrated, so he was sent here for further evaluation. On arrival to the ED he was tachycardic to the 120s to 130s and hypertensive to the 70s over 50s. EKG confirmed A-fib with RVR. Lab workup was notable for WBC count 23K. CT abdomen pelvis showed a large amount of fecal material in the rectum concerning for a fecaloma as well as scattered fecal material throughout the colon. Chest x-ray showed left basilar airspace disease concerning for atelectasis versus pneumonia. Given his elevated white blood cell count, there was concern for sepsis so patient was given 30 cc/kg of IV fluids and started on broad-spectrum antibiotics. Notably hemoglobin was 9.9, stable at baseline around 10. Hospitalist was then contacted for admission. I saw the patient at bedside in the ED. Patient was mildly fatigued appearing but was otherwise sitting back comfortably in bed and in no acute distress. He was communicating appropriately with me via hand gestures and writing on the white board. He noted feeling fatigued and his normal but denied any fevers or chills. No other concerns currently. Will be admitted for further management. [facility] Medical History Laryngeal squamous cell carcinoma Current use of ocean transportation intermediary anticoagulation Anemia Herpes zoster Depression Former smoker On home oxygen therapy Atrial fibrillation Cardiomyopathy Alcoholism Esophageal mass Hyperlipidemia Chronic HFrEF (heart failure with reduced ejection fraction) Laryngeal mass Debility Wears dentures Wears glasses Cardiology follow-up encounter Difficulty swallowing Smoker High cholesterol COPD (chronic obstructive pulmonary disease) History of CHF (congestive heart failure) Agoraphobia CHF exacerbation Medical non-compliance Alcohol abuse Tobacco abuse Acute hypoxic respiratory failure Home Medications ?Medication ?Instructions ?Recorded ?Last Taken ?Type atorvastatin 40 mg tablet 40 mg PO QHS Cholesterol #30 tabs 10/15/23 02/27/25 Rx aspirin 81 mg tablet,delayed 81 mg PO BREAKFAST #0 tabs 11/26/23 02/28/25 Rx release sennosides 8.6 mg-docusate sodium 2 tab PO BID #0 tabs 11/26/23 12/21/24 Rx 50 mg tablet (Stool Softener-Stimulant Laxative) ipratropium 0.5 mg-albuterol 3 mg 3 ml inhalation TID #180 mL 05/13/24 12/21/24 Rx (2.5 mg base)/3 mL nebulization soln acetaminophen 325 mg tablet 325 mg PO Q4H PRN fever or pain 10/03/24 Unknown History bupropion HCl 75 mg tablet 150 mg PO BID 10/03/24 12/21/24 History multivitamin 1 tab PO QDAY 10/03/24 02/28/25 History ondansetron 4 mg disintegrating 4 mg PO Q6H 10/03/24 11/04/24 History tablet sodium chloride 1,000 mg soluble 1,000 mg PO BID maintainence 10/03/24 12/21/24 History tablet potassium chloride 20 mEq/15 mL 15 meq feeding tube DAILY 12/21/24 12/21/24 History oral liquid SUPPLEMENT thiamine HCl (vitamin B1) 100 mg 100 mg PO DAILY replacement 12/21/24 12/21/24 History tablet (Vitamin B-1) amiodarone 200 mg tablet 200 mg PO BID #60 tabs 12/27/24 Unknown Rx metoprolol tartrate 25 mg tablet 12.5 mg (1/2 x 25 mg) PO BID #60 12/27/24 Unknown Rx tabs lactose-reduced food-fiber 0.07 1,140 ml feeding tube DAILY 02/28/25 Unknown History gram-1.5 kcal/mL liquid for tube feed (Isosource 1.5 Nicho) guaifenesin 100 mg/5 mL oral 600 mg PO Q6H congestion 03/21/25 Unknown History liquid (Adult Tussin Chest Congestion) ipratropium 0.5 mg-albuterol 3 mg 3 ml inhalation Q4H PRN shortness 03/21/25 Unknown History (2.5 mg base)/3 mL nebulization of breath soln menthol 0.44 %-zinc oxide 20.6 % 1 applic topical TID 03/21/25 Unknown History topical ointment in packet (Calmoseptine) mineral oil-hydrophil petrolat 1 applic topical TID PRN dry skin 03/21/25 Unknown History topical ointment selenium sulfide 1 % shampoo 1 applic topical MOWEFR 03/21/25 Unknown History (Selsun Blue) sennosides 8.6 mg tablet (Laxative 8.6 mg feeding tube BID 03/21/25 Unknown History (sennosides)) Allergy/AdvReac Type Severity Reaction Status Date / Time No Known Allergies Allergy Verified 03/21/25 08:18 Family History Father Pacemaker Surgical History History of tracheostomy History of laryngoscopy History of surgery Social History household members: none current occupational status: retired Smoking Status: Former smoker alcohol intake: current alcohol intake frequency: 3 or more drinks per day Alcohol type: beer details: 6 24 ounce cans of beer daily. substance use type: does not use caffeine: Yes Type: coffee ROS Constitutional Constitutional: Reports fatigue; Denies chills or fever(s) Cardiovascular Cardiovascular: Denies chest pain Respiratory/Chest Respiratory/Chest: Reports cough; Denies productive cough or shortness of breath at rest Gastrointestinal Gastrointestinal: Denies abdominal pain Musculoskeletal Musculoskeletal: Denies arthralgias or myalgias Vital Signs Vital Signs Vital Signs: 03/21/25 08:15 03/21/25 08:42 03/21/25 09:41 Temperature 97.9 F Temperature Source Oral Pulse Rate 95 82 Respiratory Rate 20 H 16 Blood Pressure 142/117 H 101/66 Blood Pressure Mean 125 77 Pulse Ox 96 94 86 Oxygen Delivery Method Trach Collar Trach Collar Oxygen Flow Rate (L/min) 4 03/21/25 09:45 03/21/25 09:45 03/21/25 10:00 Temperature Temperature Source Pulse Rate Respiratory Rate Blood Pressure 110/58 L 81/64 L Blood Pressure Mean 75 72 Pulse Ox 95 92 Oxygen Delivery Method Venturi Mask Oxygen Flow Rate (L/min) 6 03/21/25 10:01 03/21/25 10:14 03/21/25 10:19 Temperature Temperature Source Pulse Rate 131 H Respiratory Rate 21 H Blood Pressure 75/56 L Blood Pressure Mean 62 Pulse Ox 92 95 93 Oxygen Delivery Method Trach Collar Oxygen Flow Rate (L/min) 6 03/21/25 10:21 03/21/25 10:25 03/21/25 10:28 Temperature 97.9 F Temperature Source Oral Pulse Rate 124 H 123 H Respiratory Rate 19 H 22 H Blood Pressure 86/63 L 76/54 L 76/54 L Blood Pressure Mean 71 63 61 Pulse Ox 95 94 95 Oxygen Delivery Method Oxygen Flow Rate (L/min) 03/21/25 10:30 03/21/25 10:35 03/21/25 10:40 Temperature Temperature Source Pulse Rate 139 H 116 H 134 H Respiratory Rate 19 H 21 H 26 H Blood Pressure 75/56 L 74/57 L 90/58 L Blood Pressure Mean 65 65 68 Pulse Ox 94 95 95 Oxygen Delivery Method Oxygen Flow Rate (L/min) 03/21/25 10:45 03/21/25 10:52 03/21/25 10:55 Temperature Temperature Source Pulse Rate 127 H 114 H 117 H Respiratory Rate 22 H 21 H 20 H Blood Pressure 105/60 85/69 L 97/60 Blood Pressure Mean 74 76 73 Pulse Ox 95 96 96 Oxygen Delivery Method Oxygen Flow Rate (L/min) 03/21/25 11:00 03/21/25 11:05 03/21/25 11:10 Temperature Temperature Source Pulse Rate 119 H 95 Respiratory Rate 24 H 25 H Blood Pressure 87/60 L 86/68 L 96/60 Blood Pressure Mean 68 73 71 Pulse Ox 96 96 Oxygen Delivery Method Oxygen Flow Rate (L/min) 03/21/25 11:15 03/21/25 11:20 03/21/25 11:25 Temperature Temperature Source Pulse Rate 126 H 127 H 120 H Respiratory Rate 25 H 21 H 24 H Blood Pressure 88/62 L 97/75 Blood Pressure Mean 70 82 Pulse Ox 97 96 94 Oxygen Delivery Method Oxygen Flow Rate (L/min) 03/21/25 11:30 03/21/25 11:35 Temperature Temperature Source Pulse Rate 128 H 109 H Respiratory Rate 23 H 21 H Blood Pressure 102/82 H 101/64 Blood Pressure Mean 89 72 Pulse Ox 96 Oxygen Delivery Method Oxygen Flow Rate (L/min) Weight Weight: 74.5 kg Body Mass Index (BMI) 24.2 Physical Exam Const alert, oriented x3, no apparent distress and average body habitus Constitutional Narrative: Elderly male, tracheostomy in place, chronically ill-appearing, mildly fatigued appearing, otherwise sitting back comfortably in bed and in no acute distress. General Appearance: cooperative and comfortable HEENT normocephalic, head/scalp atraumatic, hearing grossly normal bilaterally and nasal mucous membranes and turbinates normal HEENT Narrative: Dry mucous membranes noted. Eyes PERRL, EOMs intact bilaterally and conjunctivae normal Neck full ROM Neck Narrative: Tracheostomy in place, site appears clean and dry. Chest inspection of chest normal Resp normal respiratory effort and no use of accessory muscles Resp Narrative: Breathing comfortably on 2 L nasal cannula at rest. Diminished breath sounds in bilateral lung bases with mild crackles noted in left lobe midlung zone. Mild wheezing noted in upper airways bilaterally as well. Cardio no murmurs and peripheral pulses 2+ throughout Cardio Narrative: Tachycardic, irregular rhythm. GI normal to inspection, nondistended, normoactive bowel sounds, soft to palpation, non-tender and non-distended GI Narrative: PEG tube in place. Small areas of dried blood noted around PEG tube site but no active bleeding noted. No pain or tenderness to patient at PEG tube site. Back/Spine normal ROM Extremity normal to inspection, full ROM and no pedal edema Skin no rashes or lesions noted Psych mental status grossly normal Results Lab / Micro Data 03/21/25 08:39 03/21/25 08:39 Labs: Laboratory Results - last 24 hr 03/21/25 08:39: WBC 23.6 H, RBC 3.76 L, Hgb 9.9 L, Hct 31.6 L, MCV 84.0, MCH 26.3 L, MCHC 31.3 L, RDW Std Deviation 49.4 H, RDW Coeff of Elidia 16.1 H, Plt Count 267, MPV 9.5, Immature Gran % (Auto) 0.600, Neut % (Auto) 85.0 H, Lymph % (Auto) 3.0 L, [place] % (Auto) 11.2 H, Eos % (Auto) 0.0, Baso % (Auto) 0.2, Absolute Neuts (auto) 20.1 H, Absolute Lymphs (auto) 0.72 L, Nucleated RBC % 0, Sodium 133, Potassium 4.7, Chloride 92 L, Carbon Dioxide 34.9 H, Anion Gap 6, BUN 24 H, Creatinine 0.67 L, Estim Creat Clear Calc 85.92, Est GFR (MDRD) Non-Af 101, BUN/Creatinine Ratio 35.4 H, Glucose 117 H, Calcium 9.3, Total Bilirubin 0.29, AST 38, ALT 48 H, Alkaline Phosphatase 110, Total Protein 6.9, Albumin 3.5, Globulin 3.4, Albumin/Globulin Ratio 1.0, Lipase 23 03/21/25 09:57: Lactic Acid 1.4 03/21/25 10:14: Urine Color Yellow, Urine Clarity Clear, Urine pH 7.0, Ur Specific [place] 1.010, Urine Protein 15 H, Urine Glucose (UA) Normal, Urine Ketones Negative, Urine Occult Blood 10 H, Urine Nitrite Negative, Urine Bilirubin Negative, Urine Urobilinogen Normal, Ur Leukocyte Esterase Negative, Urine RBC 0 SEEN, Urine WBC 0 SEEN, Ur Squamous Epith Cells 0-5 SEEN, Urine Bacteria 0 SEEN, Urine Mucus 0 SEEN 03/21/25 11:03: PT 16.4 H, INR 1.3, APTT 36.7 H Imaging Radiology Impression Abdomen/Pelvis CT 03/21/25 08:27 IMPRESSION: Large amount of fecal material suggestive of an fecal Abbie in the rectum. Scattered fecal material seen throughout the colon. Minimal thickening of the left adrenal gland. Nonobstructive tiny calculus in the upper pole calyx of the left kidney. Minimal left pleural thickening with left basilar scarring and/or early infiltrate. Reading Location: [facility] Chest X-Ray 03/21/25 09:48 IMPRESSION: Tracheostomy tube remains in place. Stable positioning of right subclavian central venous catheter with port. Generalized osteopenia is seen. No interval osseous changes noted. Question of a small left pleural effusion. Left basilar airspace disease is seen, with differential diagnosis including atelectasis and pneumonitis. No significant pulmonary edema is noted. No pneumothorax is seen. The cardiomediastinal silhouette is stable, without evidence of cardiomegaly. Reading Location: [id number] Assessment & Plan Assessment/Plan (1) Sepsis: (2) Pneumonia: PLAN: Plan Patient is a 70-year-old male who presented to [facility] ED on 03/21/2025 with dehydration and concern for PEG tube site bleeding. 1. Sepsis without shock suspected secondary to healthcare associated pneumonia with acute on chronic hypoxic respiratory failure ? Admit under inpatient status to PCU. He is on 2 L nasal cannula at baseline as below, requiring up to 8 L nasal cannula on admit to maintain appropriate oxygen saturations. Patient met sepsis criteria on admit with SBP less than 90, marked leukocytosis and suspected respiratory source. Chest x-ray showed left basilar airspace disease concerning for pneumonia. Patient given 30 cc/kg of IV fluids on admit with improved and blood pressure up to the 110s systolic. Patient with recent hospitalization here from 02/28-03/02 for reported sputum culture positive for MDR Pseudomonas from outside hospital. That sputum culture was never found and patient had no symptoms clinically so he did not require antibiotics on that discharge. Sputum culture from trachea here on 02/28 grew Pseudomonas that was sensitive to everything but Zosyn. Suspected this may be colonization but given his suspected pneumonia and sepsis on this admission, will treat with IV vancomycin and meropenem for now. Repeat sputum culture and blood cultures ordered. Monitor closely. Wean supplemental oxygen as able. 2. Tracheostomy and PEG tube status secondary to history of laryngeal cancer, chronic respiratory failure on 2 L at baseline ? Patient on home 2 L nasal cannula via tracheostomy. Requiring 8 L nasal cannula on admit to maintain appropriate oxygen saturations above. Suspected this is secondary to pneumonia as above with possibly mild degree of vascular congestion secondary to paroxysmal A-fib with RVR as below. Continue home DuoNebs 3 times daily scheduled. Treatment for pneumonia as above and for A-fib as below. 3. Chronic normocytic anemia with concern for bleed around PEG tube site, history of bleed around tracheostomy site ? Hemoglobin 9.9 on admit, baseline around 10. Patient was admitted here in November for a bleed around his tracheostomy site and hemoglobin dropped to 8 at that time. His Eliquis for paroxysmal A-fib was discontinued then. Nursing staff at his rehab facility noted bleeding around his PEG tube site on the day prior to this admission. Hemoglobin is stable at baseline but there is dried blood noted around his PEG tube. Will monitor and follow-up CBC daily. 4. Paroxysmal A-fib with RVR, chronic heart failure with recovered ejection fraction, hyperlipidemia ? Patient in A-fib with RVR with rate to the 130s on admit. Suspect secondary to sepsis and pneumonia as above. Given significant IV fluids on admit as above with improvement in blood pressure and some improvement in heart rate but patient remains in A-fib. Will continue home amiodarone and Lopressor and also order IV Lopressor 5 mg every 6 hours as needed for heart rate greater than 130. Notably last echo in November showed EF 50%, mild hypokinesis of left ventricular. Okay to continue home aspirin and statin as well. Monitor cardiac telemetry. 5. Constipation with concern for fecaloma ? CT abdomen pelvis on admit showed significant stool burden near the rectum with concern for fecaloma. Patient reports a few small bowel movements over the past few days but no significant bowel movements. Suspect this is secondary to dehydration in setting of sepsis as above. Given heavy IV fluids on admit as above. Will give an enema this afternoon and monitor for stool output. Continue home laxatives via G-tube. 6. Chronic mild hyponatremia ? Sodium 133 on admit, stable at baseline. Continue home sodium chloride tablet. 7. Anxiety/depression ? Stable. Continue home bupropion. 8. Chronic debility ? Case management consulted. Has lived at [facility] for about 1 year now. Should be fine to return there at discharge. DVT prophylaxis: Lovenox CODE STATUS: DNR CCA, okay to intubate/utilize tracheostomy for ventilator management if needed Expected disposition: Back to [facility] Total clinical time spent by myself addressing the patient's medical issues, reviewing all the data, and collaborating with patient's care team: 82 minutes. Charges/Coding Visit Charges Inpatient E&M: 92977 Init Hosp L3
[2025-03-21] MEDS: Meropenem 1 GM in 0.9% Normal Saline (100mL MB+) 100 ML IV ×2 (12:55→21:29)
--- NOTE | 2025-03-21 14:51 | PCM.RX.CS ---
Consult Antibiotic Management Pharmacy has been consulted to manage selected antibiotic: Vancomycin Type of Intervention Type of Consult: New start Suspected Infection Suspected Infection: Sepsis and Pneumonia Labs Labs: Sodium 133 mmol/L (133-145) 03/21/25 08:39 Potassium 4.7 mmol/L (3.3-5.1) 03/21/25 08:39 Chloride 92 mmol/L (98-108) L 03/21/25 08:39 Carbon Dioxide 34.9 mmol/L (21.0-32.0) H 03/21/25 08:39 Anion Gap 6 (5-15) 03/21/25 08:39 BUN 24 mg/dL (4-19) H 03/21/25 08:39 Creatinine 0.67 mg/dL (0.70-1.20) L 03/21/25 08:39 Est GFR (MDRD) Non-Af 101 (>60) 03/21/25 08:39 BUN/Creatinine Ratio 35.4 RATIO (10-20) H 03/21/25 08:39 Glucose 117 mg/dL (70-99) H 03/21/25 08:39 Estimated Creatinine Clearance Estimated Creatinine Clearance: 85.92 Goal Trough Goal Trough: 15-20 mcg/mL Pharmacy Plan for Drug Dosing Pharmacy Plan for Drug Dosing: NEW START IV VANCOMYCIN Consulting Physician: Dr. Gotti Indication: HCAP (Sepsis?) Goal Trough: 15-20 SrCr: 0.67 CrCl: 85.92 Comments: 1750mg x1 dose in ED @ 11:30 03/21/25 Vancomycin Dose: 1250mg Q12H to start @ 23:30 03/21/25 Pending Level: 03/22/25 @ 23:00 prior to the 4th dose Pharmacy Service will continue to monitor and adjust dosing as required. Follow-Up Labs Follow-Up Labs: Trough: Vancomycin (03/23/25 @ 23:00)
[2025-03-21] MEDS: Heparin Injection (Vial) 5,000 UNIT/ML VIAL 5000 UNIT SC (21:28)
[2025-03-21] MEDS: Senna/Docusate Sodium 1 Tablet 2 TABLET PO (21:29)
[2025-03-22] VITALS (16 sets, daily range): BP systolic 90–122; BP diastolic 64–91; PULSE 92–122; RESP 18–28; TEMP 36.2–36.7; O2SAT 94–100
[2025-03-22] MEDS: Vancomycin HCl 1,250 MG in 0.9% Normal Saline (250mL Bag) 250 ML 167 MG IV ×2 (00:09→12:11)
[2025-03-22] MEDS: Heparin Injection (Vial) 5,000 UNIT/ML VIAL 5000 UNIT SC ×3 (05:23→23:19)
[2025-03-22] MEDS: Meropenem 1 GM in 0.9% Normal Saline (100mL MB+) 100 ML IV ×3 (05:24→23:21)
[2025-03-22 05:55] LABS: Hematocrit 28.6 % (40-54); Hemoglobin 8.9 g/dL (13.0-16.5); Mean Corp Hgb Conc 31.1 g/dL (32-36); Mean Corpuscular Volume 86.7 fL (80-94); Mean Platelet Vol. 9.6 fl (6.2-12.0); Platelet Count 231 K/mm3 (150-450); RBC Distribution Width CV 16.1 % (11.6-14.6); RBC Distribution Width SD 51.0 fl (35.1-43.9); Red Blood Count 3.30 M/mm3 (4.6-6.2); White Blood Count 15.8 K/mm3 (4.4-11.0)
[2025-03-22 06:37] LABS: Anion Gap 8 (5-15); BUN 16 mg/dL (4-19); BUN/Creat Ratio 37.3 RATIO (10-20); Calcium,Total 7.8 mg/dL (7.6-11.0); Carbon Dioxide 29.4 mmol/L (21.0-32.0); Chloride 100 mmol/L (98-108); Estimated Creatinine Clearance 84.10 ml/min (50-250); Glucose 89 mg/dL (70-99); Potassium 3.6 mmol/L (3.3-5.1)
[2025-03-22] MEDS: Aspirin E.C. 81 MG Tablet PO (09:29)
[2025-03-22] MEDS: Senna/Docusate Sodium 1 Tablet 2 TABLET PO ×2 (09:29→23:22)
[2025-03-22] MEDS: Thiamine Hydrochloride 100 MG Tablet GT (09:29)
--- NOTE | 2025-03-22 09:36 | CASEMGMT ---
[employer] LIAM spoke with the patients daughter Georgina and confirmed the plan is for the patient to return to [facility]. Georgina reported that is the plan for the patient to return. SHAKIR Ruff
--- NOTE | 2025-03-22 09:59 | CASEMGMT ---
Addendum entered by Alka Valderrama 03/22/25 10:07: Pt is a bedhold and can return without precert. SW updated. Alka Valderrama DC Planning Asst. Original Note: Discharge Planning Updates sent via [facility] to [facility] with note asking if pt will need precert to return. Awaiting response. Alka Valderrama DC Planning Asst.
--- NOTE | 2025-03-22 11:29 | PCM.PN.HOSP ---
Reason for Visit Chief Complaint: Dehydration, concern for PEG tube site bleeding Subjective Subjective Saw patient at bedside this morning. Patient was sitting back fairly comfortably in bed, in no acute distress. He appeared to have improved energy level today compared to yesterday. He is essentially nonverbal due to tracheostomy that is so he was shaking or nodding his head to answer questions. Denied any fevers or chills. Denied any worsening sputum production. Still has not had a significant bowel movement to this point. No other new concerns this morning. Objective Data Objective Data Vital Signs: Vital Signs Temp Pulse Resp BP Pulse Ox O2 Del Method O2 Flow Rate 98.0 F 109 H 24 H 106/64 100 Trach Collar 8 03/22/25 03:00 03/22/25 09:29 03/22/25 03:50 03/22/25 03:00 03/22/25 03:50 03/22/25 03:50 03/21/25 14:41 FiO2 40 03/22/25 03:50 Oxygen Flow Rate (L/min) 8 Oxygen Delivery Method Trach Collar Weight: 69.2 kg Body Mass Index (BMI) 22.5 Intake & Output: Intake and Output for Last 24 Hours 03/20/25 03/21/25 03/22/25 23:59 23:59 23:59 Intake Total 4595 / 4595 1475 / 1475 Output Total 400 / 950 1100 / 1100 Balance 4195 / 3645 375 / 375 Lab / Micro Data 03/22/25 05:29 03/22/25 05:29 Labs: Laboratory Results - last 24 hr 03/22/25 05:29: WBC 15.8 H, RBC 3.30 L, Hgb 8.9 L, Hct 28.6 L, MCV 86.7, MCH 27.0, MCHC 31.1 L, RDW Std Deviation 51.0 H, RDW Coeff of Elidia 16.1 H, Plt Count 231, MPV 9.6, Sodium 137, Potassium 3.6, Chloride 100, Carbon Dioxide 29.4, Anion Gap 8, BUN 16, Creatinine 0.42 L, Estim Creat Clear Calc 84.10, Est GFR (MDRD) Non-Af 115, BUN/Creatinine Ratio 37.3 H, Glucose 89, Calcium 7.8 Physical Exam Const alert, oriented x3, no apparent distress and average body habitus Constitutional Narrative: Elderly male, tracheostomy in place, chronically ill-appearing, mildly fatigued appearing, otherwise sitting back comfortably in bed and in no acute distress. Stable. General Appearance: cooperative and comfortable HEENT normocephalic, head/scalp atraumatic, hearing grossly normal bilaterally and nasal mucous membranes and turbinates normal Mouth: dry mucous membranes Eyes PERRL, EOMs intact bilaterally and conjunctivae normal Neck full ROM Neck Narrative: Tracheostomy in place, site appears clean and dry. Chest inspection of chest normal Resp normal respiratory effort and no use of accessory muscles Resp Narrative: Breathing comfortably on 8 L nasal cannula through tracheostomy at rest. Diminished breath sounds in bilateral lung bases with mild crackles noted in left lobe midlung zone. Mild wheezing noted in upper airways bilaterally as well. Cardio no murmurs and peripheral pulses 2+ throughout Cardio Narrative: Tachycardic, irregular rhythm. GI normal to inspection, nondistended, normoactive bowel sounds, soft to palpation, non-tender and non-distended GI Narrative: PEG tube in place. Small areas of dried blood noted around PEG tube site but no active bleeding noted. No pain or tenderness to patient at PEG tube site. Back/Spine normal ROM Extremity normal to inspection, full ROM and no pedal edema Skin no rashes or lesions noted Psych mental status grossly normal Assessment & Plan Assessment/Plan (1) Sepsis: (2) Pneumonia: PLAN: Plan Patient is a 70-year-old male who presented to [facility] ED on 03/21/2025 with dehydration and concern for PEG tube site bleeding. 1. Sepsis without shock suspected secondary to healthcare associated pneumonia with acute on chronic hypoxic respiratory failure ? He is on 2 L nasal cannula at baseline as below, requiring up to 8 L nasal cannula on admit to maintain appropriate oxygen saturations. Patient met sepsis criteria on admit with SBP less than 90, marked leukocytosis and suspected respiratory source. Chest x-ray showed left basilar airspace disease concerning for pneumonia. Patient given 30 cc/kg of IV fluids on admit with improved and blood pressure up to the 110s systolic. Patient with recent hospitalization here from 02/28-03/02 for reported sputum culture positive for MDR Pseudomonas from outside hospital. That sputum culture was never found and patient had no symptoms clinically so he did not require antibiotics on that discharge. Sputum culture from trachea here on 02/28 grew Pseudomonas that was sensitive to everything but Zosyn. Suspected this may be colonization but given his suspected pneumonia and sepsis on this admission, will treat with IV vancomycin and meropenem for now. Repeat sputum culture and blood cultures pending. Patient continues to require 8 L on 03/22 so repeat chest x-ray ordered for further evaluation. Continue home inhalers as below. Wean supplemental oxygen as able. 2. Tracheostomy and PEG tube status secondary to history of laryngeal cancer, chronic respiratory failure on 2 L at baseline ? Patient on home 2 L nasal cannula via tracheostomy. Requiring 8 L nasal cannula on admit to maintain appropriate oxygen saturations above. Suspected this is secondary to pneumonia as above with possibly mild degree of vascular congestion secondary to paroxysmal A-fib with RVR as below. Repeat chest x-ray ordered on 03/22 as above for further evaluation. Continue home DuoNebs 3 times daily scheduled. Treatment for pneumonia as above and for A-fib as below. 3. Chronic normocytic anemia with concern for bleed around PEG tube site, history of bleed around tracheostomy site ? Hemoglobin 9.9 on admit, baseline around 10. Patient was admitted here in November for a bleed around his tracheostomy site and hemoglobin dropped to 8 at that time. His Eliquis for paroxysmal A-fib was discontinued then. Nursing staff at his rehab facility noted bleeding around his PEG tube site on the day prior to this admission. Hemoglobin dropped to 8.9 on hospital day 2 suspected secondary to IV fluid resuscitation. PEG tube site with mild dried blood noted but no active signs of bleeding during this hospitalization. Notably CT abdomen pelvis on admit showed no concerning findings around the PEG tube site, and PEG tube has been flushing without issue. Monitor CBC daily. 4. Paroxysmal A-fib with RVR, chronic heart failure with recovered ejection fraction, hyperlipidemia ? Patient in A-fib with RVR with rate to the 130s on admit. Suspect secondary to sepsis and pneumonia as above. Given significant IV fluids on admit as above with improvement in blood pressure and some improvement in heart rate but patient remains in A-fib. Will continue home amiodarone and Lopressor and also order IV Lopressor 5 mg every 6 hours as needed for heart rate greater than 130. Notably last echo in November showed EF 50%, mild hypokinesis of left ventricular. Okay to continue home aspirin and statin as well. Remains in A-fib on 03/22 but heart rate improved to the 90s to 100s. Continue home amiodarone and Lopressor. 5. Constipation with concern for fecaloma ? CT abdomen pelvis on admit showed significant stool burden near the rectum with concern for fecaloma. Patient reports a few small bowel movements over the past few days but no significant bowel movements. Suspect this is secondary to dehydration in setting of sepsis as above. Given heavy IV fluids on admit as above. Given an enema on the afternoon of 03/21 without much stool output. Tube feeds restarted at low rate on 03/22 and will also start MiraLAX twice daily and continue home senna 2 tablets twice daily via NG tube. Will monitor closely for stool output. 6. Chronic mild hyponatremia ? Sodium 133 on admit, stable at baseline. Continue home sodium chloride tablet. 7. Anxiety/depression ? Stable. Continue home bupropion. 8. Chronic debility ? Case management consulted. Has lived at [facility] for about 1 year now. Should be fine to return there at discharge. DVT prophylaxis: Lovenox CODE STATUS: DNR CCA, okay to intubate/utilize tracheostomy for ventilator management if needed Expected disposition: Back to [facility] Total clinical time spent by myself addressing the patient's medical issues, reviewing all the data, and collaborating with patient's care team: 38 minutes. Charges/Coding Visit Charges Inpatient E&M: 62752 Subs Hosp L2
--- NOTE | 2025-03-22 14:40 | RAD_ITS ---
PROCEDURE: CHEST 1 VIEW (PORTABLE) 03/22/2025 REASON FOR EXAM: WORSENED HYPOXIA TECHNIQUE: Frontal view of the chest. COMPARISON: AP chest of 03/21/2025. RAD/Chest 1 View (Portable) IMPRESSION: Tubes lines and catheters appear unchanged. Increased left lower lobe airspace disease is seen, concerning for developing p neumonitis. No pleural effusion is clearly seen. No pneumothorax is evident. The cardiomediastinal silhouette is stable, without evidence of cardiomegaly. No interval osseous change is seen. Reading Location: [id number]
[2025-03-22] MEDS: Polyethylene Glycol 3350 17 GM PACKET GT ×2 (14:51→23:21)
[2025-03-22] MEDS: Jevity 1.5 1,000 ML 10 ML GT (15:43)
[2025-03-22 23:35] LABS: Vancomycin, Trough Level 12.2 ug/mL (5.0-15.0)
[2025-03-23] VITALS (16 sets, daily range): BP systolic 109–144; BP diastolic 63–97; PULSE 84–119; RESP 20–28; TEMP 36.7–36.9; O2SAT 92–100
--- NOTE | 2025-03-23 00:13 | PCM.RX.CS ---
Consult Antibiotic Management Pharmacy has been consulted to manage selected antibiotic: Vancomycin Type of Intervention Type of Consult: Follow-up Suspected Infection Suspected Infection: Sepsis and Pneumonia Labs Labs: Sodium 137 mmol/L (133-145) 03/22/25 05:29 Potassium 3.6 mmol/L (3.3-5.1) 03/22/25 05:29 Chloride 100 mmol/L (98-108) 03/22/25 05:29 Carbon Dioxide 29.4 mmol/L (21.0-32.0) 03/22/25 05:29 Anion Gap 8 (5-15) 03/22/25 05:29 BUN 16 mg/dL (4-19) 03/22/25 05:29 Creatinine 0.42 mg/dL (0.70-1.20) L 03/22/25 05:29 Est GFR (MDRD) Non-Af 115 (>60) 03/22/25 05:29 BUN/Creatinine Ratio 37.3 RATIO (10-20) H 03/22/25 05:29 Glucose 89 mg/dL (70-99) 03/22/25 05:29 Vancomycin Trough 12.2 ug/mL (5.0-15.0) 03/22/25 22:55 Microbiology Microbiology: Microbiology 03/22/25 06:05 Sputum, Expectorated/Coughed Gram Stain - Final Dosing Weight Weight used for dosin.2 kg Estimated Creatinine Clearance Estimated Creatinine Clearance: 84 Goal Trough Goal Trough: 15-20 mcg/mL Pharmacy Plan for Drug Dosing Pharmacy Plan for Drug Dosing: Vancomycin trough level of 12.2, drawn 10.75hrs post-dose, was below the target range of 15-20. Will increase dosing to 1750mg q12h, and will draw another trough level prior to fourth dose of the new regimen. Pharmacy Service will continue to monitor and adjust dosing as required. Follow-Up Labs Follow-Up Labs: Trough: Vancomycin Date/Time Labs Ordered Labs to be done on [date and time ordered]: 03/24/25 @8822
[2025-03-23] MEDS: Vancomycin HCl 1,750 MG in 0.9% Normal Saline (500mL Bag) 500 ML 250 MG IV ×2 (01:10→11:53)
[2025-03-23] MEDS: 0.9% Saline Lock 10 ML Syringe IV (01:14)
[2025-03-23] MEDS: Heparin Injection (Vial) 5,000 UNIT/ML VIAL 5000 UNIT SC ×3 (05:53→22:20)
[2025-03-23] MEDS: Meropenem 1 GM in 0.9% Normal Saline (100mL MB+) 100 ML IV ×3 (05:57→22:21)
[2025-03-23 08:27] LABS: Hematocrit 29.2 % (40-54); Hemoglobin 9.1 g/dL (13.0-16.5); Mean Corp Hgb Conc 31.2 g/dL (32-36); Mean Corpuscular Volume 84.1 fL (80-94); Mean Platelet Vol. 8.9 fl (6.2-12.0); Platelet Count 225 K/mm3 (150-450); RBC Distribution Width CV 16.3 % (11.6-14.6); RBC Distribution Width SD 50.1 fl (35.1-43.9); Red Blood Count 3.47 M/mm3 (4.6-6.2); White Blood Count 11.1 K/mm3 (4.4-11.0)
[2025-03-23 08:50] LABS: Anion Gap 7 (5-15); BUN 18 mg/dL (4-19); BUN/Creat Ratio 45.3 RATIO (10-20); Calcium,Total 8.1 mg/dL (7.6-11.0); Carbon Dioxide 33.1 mmol/L (21.0-32.0); Chloride 99 mmol/L (98-108); Estimated Creatinine Clearance 84.10 ml/min (50-250); Glucose 91 mg/dL (70-99); Potassium 3.4 mmol/L (3.3-5.1)
--- NOTE | 2025-03-23 09:43 | PN.HOSP_ITS ---
Reason for Visit Chief Complaint: Dehydration, concern for PEG tube site bleeding Subjective Subjective Saw patient at bedside this morning. Patient was sitting back in bed comfortably and in no acute distress. He is continuing to require 8 L through his trach mask, which is considerably higher than his home requirement. Has crackles noted in bilateral lung bases and midlung zones bilaterally as well. Continues to have some abdominal distention and had nausea with resumption of tube feeds yesterday. Objective Data Objective Data Vital Signs: Vital Signs Temp Pulse Resp BP Pulse Ox O2 Del Method O2 Flow Rate 98.1 F 119 H 20 H 109/63 100 Trach Collar 40 03/23/25 04:05 03/23/25 07:11 03/23/25 07:11 03/23/25 04:05 03/23/25 07:11 03/23/25 07:11 03/23/25 04:05 FiO2 40 03/23/25 07:11 Oxygen Flow Rate (L/min) 40 Oxygen Delivery Method Trach Collar Weight: 69.2 kg Body Mass Index (BMI) 22.5 Intake & Output: Intake and Output for Last 24 Hours 03/21/25 03/22/25 03/23/25 23:59 23:59 23:59 Intake Total 4595 / 4595 1886.17 / 2005.17 755 / 755 Output Total 400 / 950 1900 / 1900 300 / 300 Balance 4195 / 3645 -13.83 / 106.17 455 / 455 Lab / Micro Data 03/23/25 08:21 03/23/25 08:21 Labs: Laboratory Results - last 24 hr 03/22/25 22:55: Vancomycin Trough 12.2 03/23/25 08:21: WBC 11.1 H, RBC 3.47 L, Hgb 9.1 L, Hct 29.2 L, MCV 84.1, MCH 26.2 L, MCHC 31.2 L, RDW Std Deviation 50.1 H, RDW Coeff of Elidia 16.3 H, Plt Count 225, MPV 8.9, Sodium 139, Potassium 3.4, Chloride 99, Carbon Dioxide 33.1 H, Anion Gap 7, BUN 18, Creatinine 0.39 L, Estim Creat Clear Calc 84.10, Est GFR (MDRD) Non-Af 118, BUN/Creatinine Ratio 45.3 H, Glucose 91, Calcium 8.1 Micro: Microbiology 03/22/25 06:05 Sputum, Expectorated/Coughed Gram Stain - Final Radiography Diagnostic Testing: Radiology Impression Chest X-Ray 03/22/25 14:40 IMPRESSION: Tubes lines and catheters appear unchanged. Increased left lower lobe airspace disease is seen, concerning for developing pneumonitis. No pleural effusion is clearly seen. No pneumothorax is evident. The cardiomediastinal silhouette is stable, without evidence of cardiomegaly. No interval osseous change is seen. Reading Location: [address] Physical Exam Const alert, oriented x3, no apparent distress and average body habitus Constitutional Narrative: Elderly male, tracheostomy in place, chronically ill-appearing, mildly fatigued appearing, otherwise sitting back comfortably in bed and in no acute distress. Stable. General Appearance: cooperative and comfortable HEENT normocephalic, head/scalp atraumatic, hearing grossly normal bilaterally and nasal mucous membranes and turbinates normal Mouth: dry mucous membranes Eyes PERRL, EOMs intact bilaterally and conjunctivae normal Neck full ROM Neck Narrative: Tracheostomy in place, site appears clean and dry. Chest inspection of chest normal Resp normal respiratory effort and no use of accessory muscles Resp Narrative: Breathing comfortably on 8 L nasal cannula through tracheostomy at rest. Diminished breath sounds in bilateral lung bases with crackles noted in mid lung zones bilaterally. No wheezing noted. Worsened from admission. Cardio no murmurs and peripheral pulses 2+ throughout Cardio Narrative: A-fib, rate controlled. GI normal to inspection, nondistended, normoactive bowel sounds, soft to palpation, non-tender and non-distended GI Narrative: PEG tube in place. Small areas of dried blood noted around PEG tube site but no active bleeding noted. No pain or tenderness to patient at PEG tube site. Back/Spine normal ROM Extremity normal to inspection, full ROM and no pedal edema Skin no rashes or lesions noted Psych mental status grossly normal Assessment & Plan Assessment/Plan (1) Sepsis: (2) Pneumonia: PLAN: Plan Patient is a 70-year-old male who presented to [facility] ED on 03/21/2025 with dehydration and concern for PEG tube site bleeding. 1. Sepsis without shock suspected secondary to healthcare associated pneumonia with acute on chronic hypoxic respiratory failure ? He is on 2 L nasal cannula at baseline as below, requiring up to 8 L nasal cannula on admit to maintain appropriate oxygen saturations. Patient met sepsis criteria on admit with SBP less than 90, marked leukocytosis and suspected respiratory source. Chest x-ray showed left basilar airspace disease concerning for pneumonia. Patient given 30 cc/kg of IV fluids on admit with improved and blood pressure up to the 110s systolic. Sputum culture from 03/22 prelim positive for Pseudomonas. Was hospitalized here at beginning of this month for a reported sputum culture positive for MDR Pseudomonas from outside hospital. The sputum culture result was not found, but repeat sputum culture done here on 02/28 did show Pseudomonas resistant to Zosyn. Was suspected colonization at that time but with his pneumonia, we will continue to treat with IV meropenem at this time. Vancomycin discontinued on 03/23. Continue to note increased oxygen requirements at 03/23. BNP elevated at 2300. CT abdomen pelvis obtained for constipation below showed small bilateral pleural effusions and pulmonary congestion noted, presumed secondary to heavy IV fluids given on admit. Will treat with 3 doses of IV Lasix through tomorrow morning and wean supplemental oxygen as able. Continue home inhalers. 2. Tracheostomy and PEG tube status secondary to history of laryngeal cancer, chronic respiratory failure on 2 L at baseline ? Patient on home 2 L nasal cannula via tracheostomy. Requiring 8 L nasal cannula on admit to maintain appropriate oxygen saturations above. Suspected this is secondary to pneumonia as above with possibly mild degree of vascular congestion secondary to paroxysmal A-fib with RVR as below. Treatment as above. 3. Chronic normocytic anemia with concern for bleed around PEG tube site, history of bleed around tracheostomy site ? Hemoglobin 9.9 on admit, baseline around 10. Patient was admitted here in November for a bleed around his tracheostomy site and hemoglobin dropped to 8 at that time. His Eliquis for paroxysmal A-fib was discontinued then. Nursing staff at his rehab facility noted bleeding around his PEG tube site on the day prior to this admission. Hemoglobin dropped to 8.9 on hospital day 2 suspected secondary to IV fluid resuscitation. PEG tube site with mild dried blood noted but no active signs of bleeding during this hospitalization. Notably CT abdomen pelvis on admit showed no concerning findings around the PEG tube site, and PEG tube has been flushing without issue. Monitor CBC daily. 4. Paroxysmal A-fib with RVR, chronic heart failure with recovered ejection fraction, hyperlipidemia ? Patient in A-fib with RVR with rate to the 130s on admit. Suspect secondary to sepsis and pneumonia as above. Given significant IV fluids on admit as above with improvement in blood pressure and some improvement in heart rate but patient remains in A-fib. Will continue home amiodarone and Lopressor and also order IV Lopressor 5 mg every 6 hours as needed for heart rate greater than 130. Notably last echo in November showed EF 50%, mild hypokinesis of left ventricule. Okay to continue home aspirin and statin as well. Remains in A-fib on 03/22 but heart rate improved to the 90s to 100s. Continue home amiodarone and Lopressor. 5. Constipation ? CT abdomen pelvis on admit showed significant stool burden near the rectum with concern for fecaloma. Patient reports a few small bowel movements over the past few days but no significant bowel movements. Suspect this is secondary to dehydration in setting of sepsis as above, was given significant IV fluids on admit as above. Given enemas on 03/21 without improvement. Initiated on MiraLAX twice daily and home senna 2 tablets twice daily through G-tube started on 03/22 without much improvement. Attempted fecal disimpaction at bedside on the morning of 03/23 and no stool present in the rectum. CT abdomen pelvis on 03/23 showed large amount of fecal load in the colon but otherwise no bowel wall thickening or obstruction and no other concerning findings. Will add daily Dulcolax suppository to bowel regimen and monitor closely for bowel movements. 6. Chronic mild hyponatremia ? Sodium 133 on admit, stable at baseline. Continue home sodium chloride tablet. 7. Anxiety/depression ? Stable. Continue home bupropion. 8. Chronic debility ? Case management consulted. Has lived at [facility] for about 1 year now. Should be fine to return there at discharge. DVT prophylaxis: Lovenox CODE STATUS: DNR CCA, okay to intubate/utilize tracheostomy for ventilator management if needed Expected disposition: Back to COUNTS INCLUDE 234 BEDS AT [facility] Total clinical time spent by myself addressing the patient's medical issues, reviewing all the data, and collaborating with patient's care team: 44 minutes. Charges/Coding Visit Charges Inpatient E&M: 76357 Subs Hosp L2
--- NOTE | 2025-03-23 09:58 | CT_ITS ---
PROCEDURE: ABDOMEN/PELVIS WITHOUT CONT 03/23/2025 REASON FOR EXAM: WORSENING ABD PAIN W/ DISTENSION TECHNIQUE: Procedure Code: CTABDPEL Modality: CT Procedure: ABDOMEN/PELVIS WITHOUT CONT Noncontrast technique limits evaluation of the abdominal and pelvic viscera. Coronal and Sagittal reconstruction series were provided. One or more dose reduction techniques were used (e.g., Automated exposure control, adjustment of the mA and/or kV according to patient size, use of iterative reconstruction technique). RADIATION DOSE SUMMARY: CTDlvol: 6.29 mGy DLP: 314.50 mGycm COMPARISON: CT abdomen and pelvis December 21, 2024. FINDINGS: Lung bases: Bilateral pleural effusions with atelectasis. Diffuse interstitial pulmonary densities. Airspace opacity in the lingula concerning for pneumonia. Liver: Unremarkable. Gallbladder: Unremarkable. No biliary dilation. Spleen: Unremarkable. Pancreas: Unremarkable. Adrenals: Unremarkable. Kidneys: Bilateral punctate stones with the largest measures 2 mm at the upper pole of the left kidney. No hydronephrosis. Bladder: Unremarkable. Reproductive Organs: Unremarkable. Bowel: No bowel wall thickening. No bowel obstruction. Large amount of fecal load in the colon. Appendix: No evidence of acute appendicitis. Lymph nodes: No lymphadenopathy. Vasculature: No aneurysm. Vascular atherosclerotic calcifications. Peritoneum / Retroperitoneum: No free air or free fluid. Bones: Bilateral L5 spondylolysis. Anterolisthesis L5 on S1 by [address]/Abdomen/Pelvis without Cont IMPRESSION: Bilateral pleural effusions with atelectasis. Diffuse interstitial pulmonary d ensities. Airspace opacity in the lingula concerning for pneumonia. Bilateral punctate stones with the largest measures 2 mm at the upper pole of t he left kidney. No hydronephrosis. Reading Location: [facility]
[2025-03-23] MEDS: Polyethylene Glycol 3350 17 GM PACKET GT ×2 (11:40→22:21)
[2025-03-23] MEDS: Senna/Docusate Sodium 1 Tablet 2 TABLET PO ×2 (11:41→22:21)
[2025-03-23] MEDS: Thiamine Hydrochloride 100 MG Tablet GT (11:42)
[2025-03-23 12:44] LABS: Pro- Brain NATRIURETIC PEPTIDE 2314 pg/mL (<=900)
--- NOTE | 2025-03-23 15:40 | CHAPLAIN ---
Type of Pastoral Visit _x__ Initial Visit ___ Follow-up Visit ___ On-call Visit ___ General Patient Visit ___ Spiritual Assessment ___ Family Conference ___ Bereavement ___ Rapid Response ___ Code Blue ___ Other (describe below) Pastoral Care Referral From _x__ Patient ___ Family ___ Nurse ___ Physician ___ Child Psychologist ___ Angiographer ___ Other (describe below) Sacrament/Intervention ___ Active listening ___ Anointing ___ Jewish ___ Bereavement ___ Communion ___ Diana exploration ___ ___ Life review _x__ Prayer ___ Reconciliation ___ Sacrament of Sick _x__ Supportive presence ___ Wedding ___ Other (describe below) Pastoral Comments patient is welcoming and smiles as this type of meeting in the hospital has been repeated many times; pt is unable to speak unless he uses devices; pt is offered time to have conversation or express any concerns; pt denies needing to do that; pt is asked about how he is doing/feeling but he responds with a so-so hand motion; pt welcomes a prayer; pt has TV program on and was watching it; pt appears to be content
--- NOTE | 2025-03-23 20:17 | CPS ---
pt sx by nurse-water changed ca 40%
[2025-03-24] VITALS (11 sets, daily range): BP systolic 95–123; BP diastolic 71–99; PULSE 86–118; RESP 18–27; TEMP 36.6–37; O2SAT 95–99
[2025-03-24] MEDS: Vancomycin HCl 1,750 MG in 0.9% Normal Saline (500mL Bag) 500 ML 250 MG IV (00:43)
[2025-03-24] MEDS: Heparin Injection (Vial) 5,000 UNIT/ML VIAL 5000 UNIT SC ×3 (05:37→21:42)
[2025-03-24] MEDS: Meropenem 1 GM in 0.9% Normal Saline (100mL MB+) 100 ML IV ×3 (05:37→21:42)
[2025-03-24 05:52] LABS: Hematocrit 29.9 % (40-54); Hemoglobin 9.5 g/dL (13.0-16.5); Mean Corp Hgb Conc 31.8 g/dL (32-36); Mean Corpuscular Volume 83.3 fL (80-94); Mean Platelet Vol. 9.3 fl (6.2-12.0); Platelet Count 251 K/mm3 (150-450); RBC Distribution Width CV 16.3 % (11.6-14.6); RBC Distribution Width SD 49.6 fl (35.1-43.9); Red Blood Count 3.59 M/mm3 (4.6-6.2); White Blood Count 9.5 K/mm3 (4.4-11.0)
[2025-03-24 06:23] LABS: Anion Gap 9 (5-15); BUN 14 mg/dL (4-19); BUN/Creat Ratio 34.3 RATIO (10-20); Calcium,Total 8.2 mg/dL (7.6-11.0); Carbon Dioxide 37.1 mmol/L (21.0-32.0); Chloride 93 mmol/L (98-108); Estimated Creatinine Clearance 84.10 ml/min (50-250); Glucose 90 mg/dL (70-99); Potassium 2.6 mmol/L (3.3-5.1)
[2025-03-24] MEDS: Potassium Phosphate 45 MM in 0.9% Normal Saline (500mL Bag) 500 ML 85 MM IV (08:20)
[2025-03-24] MEDS: Senna/Docusate Sodium 1 Tablet 2 TABLET PO ×2 (08:43→21:44)
[2025-03-24] MEDS: Polyethylene Glycol 3350 17 GM PACKET GT (08:44)
[2025-03-24] MEDS: Thiamine Hydrochloride 100 MG Tablet GT (08:47)
[2025-03-24 08:51] LABS: Magnesium 1.7 mg/dL (1.5-2.2)
[2025-03-24] MEDS: Potassium Chloride Oral Soln 20 MEQ/15 ML UDC 60 MEQ GT (08:59)
--- NOTE | 2025-03-24 11:47 | PCM.PN.HOSP ---
Reason for Visit Chief Complaint: Dehydration, concern for PEG tube site bleeding Subjective Subjective Saw patient at bedside this morning. Patient had several small bowel movements overnight and this morning and abdomen feels somewhat improved. He does note feeling hungry today and was hoping for tube feeds to be restarted. Notes that his breathing feels mildly improved from yesterday. No other new concerns this morning. Objective Data Objective Data Vital Signs: Vital Signs Temp Pulse Resp BP Pulse Ox O2 Del Method O2 Flow Rate 98.4 F 87 23 H 123/79 H 96 Trach Collar 40 03/24/25 10:00 03/24/25 10:00 03/24/25 10:00 03/24/25 10:00 03/24/25 10:00 03/24/25 10:00 03/23/25 04:05 FiO2 40 03/24/25 10:00 Oxygen Flow Rate (L/min) 40 Oxygen Delivery Method Trach Collar Weight: 69.2 kg Body Mass Index (BMI) 22.5 Intake & Output: Intake and Output for Last 24 Hours 03/22/25 03/23/25 03/24/25 23:59 23:59 23:59 Intake Total 1886.17 / 2005.17 1900 / 1900 1175 / 1175 Output Total 1900 / 1900 1150 / 1800 2550 / 2550 Balance -13.83 / 106.17 750 / 100 -1375 / -1375 Lab / Micro Data 03/24/25 05:24 03/24/25 12:06 Labs: Laboratory Results - last 24 hr 03/23/25 08:21: NT pro BNP II 2314 H 03/24/25 05:24: WBC 9.5, RBC 3.59 L, Hgb 9.5 L, Hct 29.9 L, MCV 83.3, MCH 26.5 L, MCHC 31.8 L, RDW Std Deviation 49.6 H, RDW Coeff of Elidia 16.3 H, Plt Count 251, MPV 9.3, Sodium 139, Potassium 2.6 L*, Chloride 93 L, Carbon Dioxide 37.1 H, Anion Gap 9, BUN 14, Creatinine 0.40 L, Estim Creat Clear Calc 84.10, Est GFR (MDRD) Non-Af 118, BUN/Creatinine Ratio 34.3 H, Glucose 90, Calcium 8.2, Phosphorus 1.5 L, Magnesium 1.7 Micro: Microbiology 03/22/25 06:05 Sputum, Expectorated/Coughed Gram Stain - Final 03/22/25 06:05 Sputum, Expectorated/Coughed Respiratory Culture - Final Pseudomonas aeruginosa Physical Exam Const alert, oriented x3, no apparent distress and average body habitus Constitutional Narrative: Elderly male, tracheostomy in place, chronically ill-appearing, mildly fatigued appearing, otherwise sitting back comfortably in bed and in no acute distress. Stable. General Appearance: cooperative and comfortable HEENT normocephalic, head/scalp atraumatic, hearing grossly normal bilaterally and nasal mucous membranes and turbinates normal Mouth: dry mucous membranes Eyes PERRL, EOMs intact bilaterally and conjunctivae normal Neck full ROM Neck Narrative: Tracheostomy in place, site appears clean and dry. Chest inspection of chest normal Resp normal respiratory effort and no use of accessory muscles Resp Narrative: Breathing comfortably on 8 L nasal cannula through tracheostomy at rest. Diminished breath sounds in bilateral lung bases but otherwise good air movement throughout with no wheezing or crackles noted. Improved from yesterday. Cardio no murmurs and peripheral pulses 2+ throughout Cardio Narrative: A-fib, rate controlled. GI normal to inspection, nondistended, normoactive bowel sounds, soft to palpation, non-tender and non-distended GI Narrative: PEG tube in place. Small areas of dried blood noted around PEG tube site but no active bleeding noted. No pain or tenderness to patient at PEG tube site. Back/Spine normal ROM Extremity normal to inspection, full ROM and no pedal edema Skin no rashes or lesions noted Psych mental status grossly normal Assessment & Plan Assessment/Plan (1) Sepsis: (2) Pneumonia: PLAN: Plan Patient is a 70-year-old male who presented to [facility] ED on 03/21/2025 with dehydration and concern for PEG tube site bleeding. 1. Sepsis without shock suspected secondary to healthcare associated pneumonia with acute on chronic hypoxic respiratory failure ? He is on 2 L nasal cannula at baseline as below, requiring up to 8 L nasal cannula on admit to maintain appropriate oxygen saturations. Patient met sepsis criteria on admit with SBP less than 90, marked leukocytosis and suspected respiratory source. Chest x-ray showed left basilar airspace disease concerning for pneumonia. Patient given 30 cc/kg of IV fluids on admit with improved and blood pressure up to the 110s systolic. Sputum culture from 10/22 prelim positive for Pseudomonas. Was hospitalized here at beginning of this month for a reported sputum culture positive for MDR Pseudomonas from outside hospital. The sputum culture result was not found, but repeat sputum culture done here on 02/28 did show Pseudomonas resistant to Zosyn. Was suspected colonization at that time but with his pneumonia, we will continue to treat with IV meropenem at this time. Vancomycin discontinued on 03/23. Continue to note increased oxygen requirements at 03/23. BNP elevated at 2300. CT abdomen pelvis obtained for constipation below showed small bilateral pleural effusions and pulmonary congestion noted, presumed secondary to heavy IV fluids given on admit. Started on IV Lasix on 03/23 with good urine output and some improvement in respiratory status, will continue for now. Continue to wean supplemental oxygen as able. Continue home inhalers. 2. Tracheostomy and PEG tube status secondary to history of laryngeal cancer, chronic respiratory failure on 2 L at baseline ? Patient on home 2 L nasal cannula via tracheostomy. Requiring 8 L nasal cannula on admit to maintain appropriate oxygen saturations above. Suspected this is secondary to pneumonia as above with possibly mild degree of vascular congestion secondary to paroxysmal A-fib with RVR as below. Treatment as above. 3. Chronic normocytic anemia with concern for bleed around PEG tube site, history of bleed around tracheostomy site ? Hemoglobin 9.9 on admit, baseline around 10. Patient was admitted here in November for a bleed around his tracheostomy site and hemoglobin dropped to 8 at that time. His Eliquis for paroxysmal A-fib was discontinued then. Nursing staff at his rehab facility noted bleeding around his PEG tube site on the day prior to this admission. Hemoglobin dropped to 8.9 on hospital day 2 suspected secondary to IV fluid resuscitation. PEG tube site with mild dried blood noted but no active signs of bleeding during this hospitalization. Notably CT abdomen pelvis on admit showed no concerning findings around the PEG tube site, and PEG tube has been flushing without issue. Monitor CBC daily. 4. Paroxysmal A-fib with RVR, chronic heart failure with recovered ejection fraction, hyperlipidemia ? Patient in A-fib with RVR with rate to the 130s on admit. Suspect secondary to sepsis and pneumonia as above. Given significant IV fluids on admit as above with improvement in blood pressure and some improvement in heart rate but patient remains in A-fib. Will continue home amiodarone and Lopressor and also order IV Lopressor 5 mg every 6 hours as needed for heart rate greater than 130. Notably last echo in November showed EF 50%, mild hypokinesis of left ventricule. Okay to continue home aspirin and statin as well. Remains in A-fib on 03/22 but heart rate improved to the 90s to 100s. Continue home amiodarone and Lopressor. 5. Constipation, improving ? CT abdomen pelvis on admit showed significant stool burden near the rectum with concern for fecaloma. Patient reports a few small bowel movements over the past few days but no significant bowel movements. Suspect this is secondary to dehydration in setting of sepsis as above, was given significant IV fluids on admit as above. Given enemas on 03/21 without improvement. Initiated on MiraLAX twice daily and home senna 2 tablets twice daily through G-tube started on 03/22 without much improvement. Attempted fecal disimpaction at bedside on the morning of 03/23 and no stool present in the rectum. CT abdomen pelvis on 03/23 showed large amount of fecal load in the colon but otherwise no bowel wall thickening or obstruction and no other concerning findings. Patient with several small bowel movements overnight on 03/23-03/24. Continue senna and MiraLAX and tube feeds reinitiated on 03/24, monitor. 6. Chronic mild hyponatremia ? Sodium 133 on admit, stable at baseline. Continue home sodium chloride tablet. 7. Anxiety/depression ? Stable. Continue home bupropion. 8. Chronic debility ? Case management consulted. Has lived at [facility] for about 1 year now. Should be fine to return there at discharge. DVT prophylaxis: Lovenox CODE STATUS: DNR CCA, okay to intubate/utilize tracheostomy for ventilator management if needed Expected disposition: Back to [facility] Total clinical time spent by myself addressing the patient's medical issues, reviewing all the data, and collaborating with patient's care team: 37 minutes. Charges/Coding Visit Charges Inpatient E&M: 83168 Subs Hosp L2
[2025-03-24 12:53] LABS: Anion Gap 9 (5-15); BUN 14 mg/dL (4-19); BUN/Creat Ratio 31.8 RATIO (10-20); Calcium,Total 8.3 mg/dL (7.6-11.0); Carbon Dioxide 37.7 mmol/L (21.0-32.0); Chloride 95 mmol/L (98-108); Estimated Creatinine Clearance 84.10 ml/min (50-250); Glucose 90 mg/dL (70-99); Potassium 3.7 mmol/L (3.3-5.1)
--- NOTE | 2025-03-24 14:17 | CASEMGMT ---
Social Work Patient is from [facility]. Pt is a bed hold & can return w/out pre-cert. green sheet on the chart. SHAKIR Ruff
[2025-03-24] MEDS: Jevity 1.5 1,000 ML 10 ML GT (17:57)
[2025-03-24] MEDS: 0.9% Saline Lock 10 ML Syringe IV (23:15)
[2025-03-25] VITALS (17 sets, daily range): BP systolic 88–123; BP diastolic 62–85; PULSE 82–117; RESP 17–29; TEMP 36.1–36.8; O2SAT 95–100
[2025-03-25] MEDS: Albumin Human 25% (50 mL) 12.5 GM/50 ML IV.SOLN IV (04:31)
[2025-03-25] MEDS: 0.9% Saline Lock 10 ML Syringe IV (05:29)
[2025-03-25] MEDS: Meropenem 1 GM in 0.9% Normal Saline (100mL MB+) 100 ML IV (05:29)
[2025-03-25] MEDS: Heparin Injection (Vial) 5,000 UNIT/ML VIAL 5000 UNIT SC ×3 (05:30→20:31)
[2025-03-25 06:37] LABS: Hematocrit 29.5 % (40-54); Hemoglobin 9.8 g/dL (13.0-16.5); Mean Corp Hgb Conc 33.2 g/dL (32-36); Mean Corpuscular Volume 80.2 fL (80-94); Mean Platelet Vol. 9.9 fl (6.2-12.0); Platelet Count 291 K/mm3 (150-450); RBC Distribution Width CV 16.4 % (11.6-14.6); RBC Distribution Width SD 47.1 fl (35.1-43.9); Red Blood Count 3.68 M/mm3 (4.6-6.2); White Blood Count 8.6 K/mm3 (4.4-11.0)
[2025-03-25 07:11] LABS: Pro- Brain NATRIURETIC PEPTIDE 1006 pg/mL (<=900)
[2025-03-25 07:15] LABS: Anion Gap 12 (5-15); BUN 17 mg/dL (4-19); BUN/Creat Ratio 31.0 RATIO (10-20); Calcium,Total 8.9 mg/dL (7.6-11.0); Carbon Dioxide 36.7 mmol/L (21.0-32.0); Chloride 93 mmol/L (98-108); Estimated Creatinine Clearance 84.10 ml/min (50-250); Glucose 95 mg/dL (70-99); Potassium 2.8 mmol/L (3.3-5.1)
--- NOTE | 2025-03-25 08:40 | RAD_ITS ---
PROCEDURE: CHEST 1 VIEW (PORTABLE) 03/25/2025 REASON FOR EXAM: PERSISTENT HYPOXIA TECHNIQUE: Frontal view of the chest. COMPARISON: 03/22/2025 FINDINGS: Slight worsening of left lung base atelectasis and/or consolidation. Remainder of the lungs appear adequately aerated. No pneumothorax. No significant pleural effusion. The cardiomediastinal silhouette is normal. Stable appearance of tracheostomy tube and right chemo port. Peg tube is visualized. RAD/Chest 1 View (Portable) IMPRESSION: 1. Slight worsening of left basilar atelectasis and/or consolidation. Reading Location: [id number]
--- NOTE | 2025-03-25 10:29 | PN.HOSP_ITS ---
Reason for Visit Chief Complaint: Dehydration, concern for PEG tube site bleeding Subjective Subjective Saw patient at bedside this morning. Patient appeared similar today to yesterday. He was continuing to state that he was hungry and would like the tube feed rate increased. No other new concerns today. Objective Data Objective Data Vital Signs: Vital Signs Temp Pulse Resp BP Pulse Ox O2 Del Method O2 Flow Rate 97.2 F L 117 H 23 H 108/85 H 96 Trach Collar 12 03/25/25 09:15 03/25/25 09:15 03/25/25 09:15 03/25/25 09:15 03/25/25 09:15 03/25/25 09:15 03/25/25 07:41 FiO2 40 03/25/25 09:15 Oxygen Flow Rate (L/min) 12 Oxygen Delivery Method Trach Collar Weight: 69.2 kg Body Mass Index (BMI) 22.5 Intake & Output: Intake and Output for Last 24 Hours 03/23/25 03/24/25 03/25/25 23:59 23:59 23:59 Intake Total 1900 / 1900 1930 / 1930 350 / 350 Output Total 1150 / 1800 4250 / 4600 900 / 900 Balance 750 / 100 -2320 / -2670 -550 / -550 Lab / Micro Data 03/25/25 05:36 03/25/25 05:36 Labs: Laboratory Results - last 24 hr 03/24/25 12:06: Sodium 141, Potassium 3.7, Chloride 95 L, Carbon Dioxide 37.7 H, Anion Gap 9, BUN 14, Creatinine 0.44 L, Estim Creat Clear Calc 84.10, Est GFR (MDRD) Non-Af 114, BUN/Creatinine Ratio 31.8 H, Glucose 90, Calcium 8.3 03/25/25 05:36: WBC 8.6, RBC 3.68 L, Hgb 9.8 L, Hct 29.5 L, MCV 80.2, MCH 26.6 L , MCHC 33.2, RDW Std Deviation 47.1 H, RDW Coeff of Elidia 16.4 H, Plt Count 291, MPV 9.9, Sodium 141, Potassium 2.8 L, Chloride 93 L, Carbon Dioxide 36.7 H, Anion Gap 12, BUN 17, Creatinine 0.55 L, Estim Creat Clear Calc 84.10, Est GFR (MDRD) Non-Af 107, BUN/Creatinine Ratio 31.0 H, Glucose 95, Calcium 8.9, NT pro BNP II 1006 H Micro: Microbiology 03/22/25 06:05 Sputum, Expectorated/Coughed Gram Stain - Final 03/22/25 06:05 Sputum, Expectorated/Coughed Respiratory Culture - Final Pseudomonas aeruginosa Radiography Diagnostic Testing: Radiology Impression Chest X-Ray 03/25/25 08:40 IMPRESSION: 1. Slight worsening of left basilar atelectasis and/or consolidation. Reading Location: [id number] Physical Exam Const alert, oriented x3, no apparent distress and average body habitus Constitutional Narrative: Elderly male, tracheostomy in place, chronically ill-appearing, mildly fatigued appearing, otherwise sitting back comfortably in bed and in no acute distress. Stable. General Appearance: cooperative and comfortable HEENT normocephalic, head/scalp atraumatic, hearing grossly normal bilaterally and nasal mucous membranes and turbinates normal Mouth: dry mucous membranes Eyes PERRL, EOMs intact bilaterally and conjunctivae normal Neck full ROM Neck Narrative: Tracheostomy in place, site appears clean and dry. Chest inspection of chest normal Resp normal respiratory effort and no use of accessory muscles Resp Narrative: Breathing comfortably on 8 L nasal cannula through tracheostomy at rest. Diminished breath sounds in bilateral lung bases but otherwise good air movement throughout with no wheezing or crackles noted. Stable. Cardio no murmurs and peripheral pulses 2+ throughout Cardio Narrative: A-fib with RVR. GI normal to inspection, nondistended, normoactive bowel sounds, soft to palpation, non-tender and non-distended GI Narrative: PEG tube in place. Small areas of dried blood noted around PEG tube site but no active bleeding noted. No pain or tenderness to patient at PEG tube site. Back/Spine normal ROM Extremity normal to inspection, full ROM and no pedal edema Skin no rashes or lesions noted Psych mental status grossly normal Assessment & Plan Assessment/Plan (1) Sepsis: (2) Pneumonia: PLAN: Plan Patient is a 70-year-old male who presented to [facility] ED on 03/21/2025 with dehydration and concern for PEG tube site bleeding. 1. Sepsis without shock suspected secondary to healthcare associated pneumonia with acute on chronic hypoxic respiratory failure ? On 2 L nasal cannula at baseline as below, requiring up to 8 L nasal cannula on admit to maintain appropriate oxygen saturations. Patient met sepsis criteria on admit with SBP less than 90, marked leukocytosis and suspected respiratory source. Chest x-ray showed left basilar airspace disease concerning for pneumonia. Patient given 30 cc/kg of IV fluids on admit with improved and blood pressure up to the 110s systolic. Sputum culture from 03/22 prelim positive for Pseudomonas. Was hospitalized here at beginning of this month for a reported sputum culture positive for MDR Pseudomonas from outside hospital. The sputum culture result was not found, but repeat sputum culture done here on 02/28 did show Pseudomonas resistant to Zosyn. Was suspected colonization at that time but with his pneumonia, treated with IV meropenem. Vancomycin discontinued on 03/23. Final sputum culture growing from 03/22 Pseudomonas sensitive to doxycycline. Okay for p.o. doxycycline and will plan for 7-day course of antibiotics total on discharge. Did have increased oxygen requirements noted on 03/23. BNP elevated at 2300. CT abdomen pelvis obtained for constipation below showed small bilateral pleural effusions and pulmonary congestion noted, presumed secondary to heavy IV fluids given on admit. Started on IV Lasix on 03/23 with good urine output and some improvement in respiratory status. Patient with slowly increasing creatinine and mild hypotension on 03/25, will hold off on further IV Lasix for now. Repeat chest x-ray on 03/25 with slight worsening of left basilar atelectasis versus consolidation. Suspect this will be a slowly resolving pneumonia and patient will have increased oxygen requirements for a period of time. Continue to wean supplemental oxygen as able. Continue home inhalers. 2. Tracheostomy and PEG tube status secondary to history of laryngeal cancer, chronic respiratory failure on 2 L at baseline ? Patient on home 2 L nasal cannula via tracheostomy. Requiring 8 L nasal cannula on admit to maintain appropriate oxygen saturations above. Suspected this is secondary to pneumonia as above with possibly mild degree of vascular congestion secondary to paroxysmal A-fib with RVR as below. Treatment as above. 3. Chronic normocytic anemia with concern for bleed around PEG tube site, history of bleed around tracheostomy site ? Hemoglobin 9.9 on admit, baseline around 10. Patient was admitted here in November for a bleed around his tracheostomy site and hemoglobin dropped to 8 at that time. His Eliquis for paroxysmal A-fib was discontinued then. Nursing staff at his rehab facility noted bleeding around his PEG tube site on the day prior to this admission. Hemoglobin dropped to 8.9 on hospital day 2 suspected secondary to IV fluid resuscitation. PEG tube site with mild dried blood noted but no active signs of bleeding during this hospitalization. Notably CT abdomen pelvis on admit showed no concerning findings around the PEG tube site, and PEG tube has been flushing without issue. Monitor CBC daily. 4. Paroxysmal A-fib with RVR, chronic heart failure with recovered ejection fraction, hyperlipidemia ? Patient in A-fib with RVR with rate to the 130s on admit. Suspect secondary to sepsis and pneumonia as above. Given significant IV fluids on admit as above with improvement in blood pressure and some improvement in heart rate but patient remains in A-fib. Will continue home amiodarone and Lopressor and also order IV Lopressor 5 mg every 6 hours as needed for heart rate greater than 130. Notably last echo in November showed EF 50%, mild hypokinesis of left ventricle. Okay to continue home aspirin and statin as well. Has remained in A-fib with fairly good rate control, continue home amiodarone and Lopressor. 5. Constipation, improved ? CT abdomen pelvis on admit showed significant stool burden near the rectum with concern for fecaloma. Patient reports a few small bowel movements over the past few days but no significant bowel movements. Suspect this is secondary to dehydration in setting of sepsis as above, was given significant IV fluids on admit as above. Given enemas on 03/21 without improvement. Initiated on MiraLAX twice daily and home senna 2 tablets twice daily through G-tube started on 03/22 without much improvement. Attempted fecal disimpaction at bedside on the morning of 03/23 and no stool present in the rectum. CT abdomen pelvis on 03/23 showed large amount of fecal load in the colon but otherwise no bowel wall thickening or obstruction and no other concerning findings. Patient with several bowel movements on 03/23-03/24, much improved. Continue senna and MiraLAX and increasing tube feed rate as tolerated. 6. Chronic mild hyponatremia ? Sodium 133 on admit, stable at baseline. Continue home sodium chloride tablet. 7. Anxiety/depression ? Stable. Continue home bupropion. 8. Chronic debility ? Case management following. Has lived at [facility] for about 1 year now. Planning to return there at discharge. Will likely be medically ready for discharge in the next 1 to 2 days. DVT prophylaxis: Lovenox CODE STATUS: DNR CCA, okay to intubate/utilize tracheostomy for ventilator management if needed Expected disposition: Back to [facility], 1 to 2 days Total clinical time spent by myself addressing the patient's medical issues, reviewing all the data, and collaborating with patient's care team: 37 minutes. Charges/Coding Visit Charges Inpatient E&M: 66741 Subs Hosp L2
[2025-03-25] MEDS: Lactated Ringers 1,000 ML 250 ML IV (10:44)
[2025-03-25] MEDS: Potassium Chloride Oral Soln 20 MEQ/15 ML UDC 60 MEQ GT (11:58)
[2025-03-25] MEDS: Na Biphos/Potassium Phosphate PACKET 1 PACKET PO ×4 (11:58→20:35)
[2025-03-25] MEDS: Senna/Docusate Sodium 1 Tablet 2 TABLET PO ×2 (11:59→20:34)
[2025-03-25] MEDS: Thiamine Hydrochloride 100 MG Tablet GT (11:59)
[2025-03-26] VITALS (8 sets, daily range): BP systolic 117–143; BP diastolic 73–96; PULSE 78–94; RESP 18–22; TEMP 36–36.7; O2SAT 94–100
[2025-03-26] MEDS: Heparin Injection (Vial) 5,000 UNIT/ML VIAL 5000 UNIT SC ×2 (05:07→20:37)
[2025-03-26 05:34] LABS: Hematocrit 30.8 % (40-54); Hemoglobin 9.8 g/dL (13.0-16.5); Mean Corp Hgb Conc 31.8 g/dL (32-36); Mean Corpuscular Volume 82.4 fL (80-94); Mean Platelet Vol. 9.8 fl (6.2-12.0); Platelet Count 278 K/mm3 (150-450); RBC Distribution Width CV 16.8 % (11.6-14.6); RBC Distribution Width SD 49.5 fl (35.1-43.9); Red Blood Count 3.74 M/mm3 (4.6-6.2); White Blood Count 8.7 K/mm3 (4.4-11.0)
[2025-03-26 05:58] LABS: Anion Gap 7 (5-15); BUN 20 mg/dL (4-19); BUN/Creat Ratio 45.2 RATIO (10-20); Calcium,Total 9.2 mg/dL (7.6-11.0); Carbon Dioxide 37.6 mmol/L (21.0-32.0); Chloride 98 mmol/L (98-108); Estimated Creatinine Clearance 84.10 ml/min (50-250); Glucose 120 mg/dL (70-99); Magnesium 2.0 mg/dL (1.5-2.2); Potassium 3.0 mmol/L (3.3-5.1)
[2025-03-26] MEDS: Senna/Docusate Sodium 1 Tablet 2 TABLET PO ×2 (10:01→20:37)
[2025-03-26] MEDS: Potassium Chloride Oral Soln 20 MEQ/15 ML UDC 60 MEQ PO (10:02)
[2025-03-26] MEDS: Na Biphos/Potassium Phosphate PACKET 1 PACKET PO ×3 (10:02→20:38)
[2025-03-26] MEDS: Thiamine Hydrochloride 100 MG Tablet GT (10:03)
[2025-03-26] MEDS: Polyethylene Glycol 3350 17 GM PACKET GT (10:04)
--- NOTE | 2025-03-26 10:50 | PN.HOSP_ITS ---
Reason for Visit Chief Complaint: Dehydration, concern for PEG tube site bleeding Subjective Subjective Saw patient at bedside this morning. Patient appeared similar today to yesterday. Noted that he felt less hungry today with the tube feed rate increasing. Denied any worsening shortness of breath since yesterday and has been having bowel movements. No other new concerns today. Objective Data Objective Data Vital Signs: Vital Signs Temp Pulse Resp BP Pulse Ox O2 Del Method O2 Flow Rate 98.1 F 94 18 143/93 H 94 Trach Collar 10 03/26/25 10:00 03/26/25 10:00 03/26/25 10:00 03/26/25 10:00 03/26/25 10:00 03/26/25 10:00 03/26/25 07:02 FiO2 35 03/26/25 10:00 Oxygen Flow Rate (L/min) 10 Oxygen Delivery Method Trach Collar Weight: 69.2 kg Body Mass Index (BMI) 22.5 Intake & Output: Intake and Output for Last 24 Hours 03/24/25 03/25/25 03/26/25 23:59 23:59 23:59 Intake Total 1930 / 1930 1228.17 / 1228.17 45 / 45 Output Total 4250 / 4600 1600 / 1600 175 / 175 Balance -2320 / -2670 -371.83 / -371.83 -130 / -130 Lab / Micro Data 03/26/25 04:53 03/26/25 04:53 Labs: Laboratory Results - last 24 hr 03/26/25 04:53: WBC 8.7, RBC 3.74 L, Hgb 9.8 L, Hct 30.8 L, MCV 82.4, MCH 26.2 L , MCHC 31.8 L, RDW Std Deviation 49.5 H, RDW Coeff of Elidia 16.8 H, Plt Count 278, MPV 9.8, Sodium 143, Potassium 3.0 L, Chloride 98, Carbon Dioxide 37.6 H, Anion Gap 7, BUN 20 H, Creatinine 0.44 L, Estim Creat Clear Calc 84.10, Est GFR (MDRD) Non-Af 114, BUN/Creatinine Ratio 45.2 H, Glucose 120 H, Calcium 9.2, Phosphorus 2.2 L, Magnesium 2.0 Micro: Microbiology 03/22/25 06:05 Sputum, Expectorated/Coughed Gram Stain - Final 03/22/25 06:05 Sputum, Expectorated/Coughed Respiratory Culture - Final Pseudomonas aeruginosa Physical Exam Const alert, oriented x3, no apparent distress and average body habitus Constitutional Narrative: Elderly male, tracheostomy in place, chronically ill-appearing, mildly fatigued appearing, otherwise sitting back comfortably in bed and in no acute distress. Stable. General Appearance: cooperative and comfortable HEENT normocephalic, head/scalp atraumatic, hearing grossly normal bilaterally and nasal mucous membranes and turbinates normal Mouth: dry mucous membranes Eyes PERRL, EOMs intact bilaterally and conjunctivae normal Neck full ROM Neck Narrative: Tracheostomy in place, site appears clean and dry. Chest inspection of chest normal Resp normal respiratory effort and no use of accessory muscles Resp Narrative: Breathing comfortably on 8 L nasal cannula through tracheostomy at rest. Diminished breath sounds in bilateral lung bases but otherwise good air movement throughout with no wheezing or crackles noted. Stable. Cardio no murmurs and peripheral pulses 2+ throughout Cardio Narrative: A-fib, rate controlled. GI normal to inspection, nondistended, normoactive bowel sounds, soft to palpation, non-tender and non-distended GI Narrative: PEG tube in place. Small areas of dried blood noted around PEG tube site but no active bleeding noted. No pain or tenderness to patient at PEG tube site. Back/Spine normal ROM Extremity normal to inspection, full ROM and no pedal edema Skin no rashes or lesions noted Psych mental status grossly normal Assessment & Plan Assessment/Plan (1) Sepsis: (2) Pneumonia: PLAN: Plan Patient is a 70-year-old male who presented to [facility] ED on 03/21/2025 with dehydration and concern for PEG tube site bleeding. 1. Sepsis without shock suspected secondary to healthcare associated pneumonia with acute on chronic hypoxic respiratory failure, history of tracheostomy and PEG tube status secondary to history of laryngeal cancer ? On 2 L nasal cannula at baseline as below, requiring up to 8 L nasal cannula on admit to maintain appropriate oxygen saturations. Patient met sepsis criteria on admit with SBP less than 90, marked leukocytosis and suspected respiratory source. Chest x-ray showed left basilar airspace disease concerning for pneumonia. Patient given 30 cc/kg of IV fluids on admit with improved and blood pressure up to the 110s systolic. Sputum culture grew Pseudomonas sensitive to Levaquin. De-escalated from IV antibiotics to p.o. Levaquin and will complete 10-day course of antibiotics total on 03/30. Patient has had increased oxygen requirement since admission and BNP was mildly elevated back on 03/23 so he was diuresed with some improvement in oxygenation status. Most recent chest x-ray did show continued left lower lobe pneumonia so suspect this will be a slowly resolving pneumonia. Weaning supplemental oxygen as able and tentatively planning for discharge back to nursing facility on 03/27. 2. Chronic normocytic anemia with concern for bleed around PEG tube site, history of bleed around tracheostomy site ? Hemoglobin 9.9 on admit, baseline around 10. Patient was admitted here in November for a bleed around his tracheostomy site and hemoglobin dropped to 8 at that time. His Eliquis for paroxysmal A-fib was discontinued then. Nursing staff at his rehab facility noted bleeding around his PEG tube site on the day prior to this admission. Hemoglobin dropped to 8.9 on hospital day 2 suspected secondary to IV fluid resuscitation. PEG tube site with mild dried blood noted but no active signs of bleeding during this hospitalization. Notably CT abdomen pelvis on admit showed no concerning findings around the PEG tube site, and PEG tube has been flushing without issue. Monitor CBC daily. 3. Paroxysmal A-fib with RVR, chronic heart failure with recovered ejection fraction, hyperlipidemia ? Patient in A-fib with RVR with rate to the 130s on admit. Suspect secondary to sepsis and pneumonia as above. Given significant IV fluids on admit as above with improvement in blood pressure and some improvement in heart rate but patient remains in A-fib. Will continue home amiodarone and Lopressor and also order IV Lopressor 5 mg every 6 hours as needed for heart rate greater than 130. Notably last echo in November showed EF 50%, mild hypokinesis of left ventricle. Okay to continue home aspirin and statin as well. Has remained in A-fib with fairly good rate control, continue home amiodarone and Lopressor. 4. Constipation, improved ? CT abdomen pelvis on admit showed significant stool burden near the rectum with concern for fecaloma. Patient reports a few small bowel movements over the past few days but no significant bowel movements. Suspect this is secondary to dehydration in setting of sepsis as above, was given significant IV fluids on admit as above. Given enemas on 03/21 without improvement. Initiated on MiraLAX twice daily and home senna 2 tablets twice daily through G-tube started on 03/22 without much improvement. Attempted fecal disimpaction at bedside on the morning of 03/23 and no stool present in the rectum. CT abdomen pelvis on 03/23 showed large amount of fecal load in the colon but otherwise no bowel wall thickening or obstruction and no other concerning findings. Patient with several bowel movements on 03/23-03/24, much improved. Continue senna and MiraLAX and increased back to baseline tube feed rate on 03/26. 5. Chronic mild hyponatremia ? Sodium 133 on admit, stable at baseline. Continue home sodium chloride tablet. 6. Anxiety/depression ? Stable. Continue home bupropion. 7. Chronic debility ? Case management following. Has lived at [facility] for about 1 year now and will return there on discharge. No pre-CERT needed to return there. DVT prophylaxis: Lovenox CODE STATUS: DNR CCA, okay to intubate/utilize tracheostomy for ventilator management if needed Expected disposition: Back to [facility], 1 to 2 days Total clinical time spent by myself addressing the patient's medical issues, reviewing all the data, and collaborating with patient's care team: 37 minutes. Charges/Coding Visit Charges Inpatient E&M: 31673 Subs Hosp L2
[2025-03-26] MEDS: Jevity 1.5 1,000 ML 45 ML GT (11:05)
[2025-03-27 05:00] VITALS: BP 104/67; PULSE 80; RESP 16; TEMP 36.1; O2SAT 96
[2025-03-27] MEDS: Heparin Injection (Vial) 5,000 UNIT/ML VIAL 5000 UNIT SC (05:09)
[2025-03-27] MEDS: Na Biphos/Potassium Phosphate PACKET 1 PACKET PO (05:09)
[2025-03-27 07:17] LABS: Hematocrit 30.2 % (40-54); Hemoglobin 9.7 g/dL (13.0-16.5); Mean Corp Hgb Conc 32.1 g/dL (32-36); Mean Corpuscular Volume 82.7 fL (80-94); Mean Platelet Vol. 9.8 fl (6.2-12.0); Platelet Count 271 K/mm3 (150-450); RBC Distribution Width CV 17.2 % (11.6-14.6); RBC Distribution Width SD 51.4 fl (35.1-43.9); Red Blood Count 3.65 M/mm3 (4.6-6.2); White Blood Count 7.1 K/mm3 (4.4-11.0)
[2025-03-27 07:38] VITALS: PULSE 81; RESP 18; O2SAT 95
[2025-03-27 07:48] LABS: Anion Gap 10 (5-15); BUN 17 mg/dL (4-19); BUN/Creat Ratio 32.1 RATIO (10-20); Calcium,Total 9.2 mg/dL (7.6-11.0); Carbon Dioxide 31.9 mmol/L (21.0-32.0); Chloride 103 mmol/L (98-108); Estimated Creatinine Clearance 84.10 ml/min (50-250); Glucose 91 mg/dL (70-99); Potassium 3.6 mmol/L (3.3-5.1)
[2025-03-27 08:43] VITALS: BP 119/77; PULSE 87; RESP 14; TEMP 36.6; O2SAT 100
[2025-03-27 08:49] VITALS: BP 119/77; PULSE 87
[2025-03-27] MEDS: Senna/Docusate Sodium 1 Tablet 2 TABLET PO (08:50)
[2025-03-27] MEDS: Thiamine Hydrochloride 100 MG Tablet GT (08:51)
--- NOTE | 2025-03-27 09:22 | CASEMGMT ---
Discharge Planning Updates sent via [facility] to [facility]. Alka Valderrama DC Planning Asst.
--- NOTE | 2025-03-27 13:04 | PCM.TXEXTCAR ---
Diet Diet Order/Speech Therapy: INPATIENT Hospital Diet / Speech Therapy Order(s) 03/21/25 13:49 Diet: Nothing Per Oral Routine Orders/Code Status Routine Lab Work: CBC and BMP Code Status: DNRCC-A DC O2, CPAP, BIPAP needs Home O2 Discharge instructions: No Wound(s) L leg: Wound Type: Abrasion Therapies Physical Therapy: Eval and Treat Occupational Therapy: Eval and Treat Problem/Diagnosis (1) Sepsis: Status: Acute Code(s): A41.9 - Sepsis, unspecified organism (2) Pneumonia: Status: Acute Code(s): J18.9 - Pneumonia, unspecified organism Allergies/Procedures Done in Hospital Allergies No Known Allergies Allergy (Verified 03/21/25 08:18) Type of Care/Length of Stay Estimated LOS: Convalescent Care Less Than 30 days Type of Care Needed: Skilled Rehab Potential: Good Prognosis: Good Additional Orders/Day of Discharge Day of Discharge: 03/27/25 Dietary and Speech Recommendations Dietitian Recommendations/Changes: 1. Continue NPO. 2. Continue advancing Jevity 1.5Cal as tolerated to goal rate of 60mL/hr. TF currently running at 45mL/hr with 100mL water flushes every 4 hours to provide 1620 calories, 69g protein, and 1420mL total free water per day. Will reassess tube feeding plan tomorrow. 3. Monitor weight and adjust TF as indicated. Discharge Plan Admission Admit Date/Time: 03/21/25 12:42 Attending Provider: Gautam Wesley Primary Care Provider: Juan Rai Consulting Providers: Sen Gotti Discharge Orders/Prescriptions Prescriptions: New levofloxacin 750 mg Tablet 750 mg G-tube DAILY@0600 4 Days Qty: 0 0RF Continued ipratropium-albuterol 0.5 mg-3 mg(2.5 mg base)/3 mL solution for nebulization 3 ml inhalation TID Qty: 180 11RF acetaminophen 325 mg tablet 325 mg PO Q4H PRN (Reason: fever or pain) bupropion HCl 75 mg tablet 150 mg PO BID multivitamin Tablet 1 tab PO QDAY ondansetron 4 mg tablet,disintegrating 4 mg PO Q6H sodium chloride 1,000 mg tablet,soluble 1,000 mg PO BID atorvastatin 40 mg Tablet 40 mg PO QHS Qty: 30 2RF Isosource 1.5 Nicho 0.07 gram-1.5 kcal/mL liquid 1,140 ml feeding tube DAILY Rx Instructions: 60cc/hr , 1 time a day flush with 45cc/hr continuously while TV running for a totla of 1080cc of water sennosides-docusate sodium [Stool Softener-Stimulant Laxat] 8.6-50 mg Tablet 2 tab PO BID Qty: 0 0RF aspirin 81 mg Tablet,Delayed Release (Dr/Ec) 81 mg PO BREAKFAST Qty: 0 0RF potassium chloride 20 mEq/15 mL liquid 15 meq feeding tube DAILY thiamine HCl (vitamin B1) [Vitamin B-1] 100 mg Tablet 100 mg PO DAILY amiodarone 200 mg Tablet 200 mg PO BID Qty: 60 2RF Rx Instructions: to take one tablet (200mg) twice daily x 1 month, then to follow with 200mg (one tablet) daily metoprolol tartrate 25 mg Tablet 12.5 mg PO BID Qty: 60 2RF Calmoseptine 0.44-20.6 % ointment in packet 1 applic topical TID Selsun Blue 1 % shampoo 1 applic topical MOWEFR Rx Instructions: massage into affected area; leave on for 10 mins ; rinse off thoroughly mineral oil-hydrophil petrolat Ointment 1 applic topical TID PRN (Reason: dry skin) ipratropium-albuterol 0.5 mg-3 mg(2.5 mg base)/3 mL solution for nebulization 3 ml inhalation Q4H PRN (Reason: shortness of breath) sennosides [Laxative (sennosides)] 8.6 mg tablet 8.6 mg feeding tube BID guaifenesin [Adult Tussin Chest Congestion] 100 mg/5 mL liquid 600 mg PO Q6H Referrals / Follow Up: Juan Rai DO [Primary Care Provider, Hospitalist] Disposition Disposition (needs filled in before D/C Order can be placed): Intermediate Facility
[2025-03-27 13:07] VITALS: BP 123/78; PULSE 81; RESP 16; TEMP 36.6; O2SAT 95
--- NOTE | 2025-03-27 13:23 | PHA.DC_ITS ---
Pharmacy [facility] Med Reconciliation Pharmacy Service has performed discharge medication reconciliation for this patient. The patient's discharge medication list was reviewed for discrepancies and discrepancies were resolved. Medications at Discharge Home Medications atorvastatin 40 mg tablet 40 mg PO QHS Cholesterol #30 tabs 10/15/23 aspirin 81 mg tablet,delayed release 81 mg PO BREAKFAST #0 tabs 11/26/23 sennosides 8.6 mg-docusate sodium 50 mg tablet (Stool Softener-Stimulant Laxative) 2 tab PO BID #0 tabs 11/26/23 ipratropium 0.5 mg-albuterol 3 mg (2.5 mg base)/3 mL nebulization soln 3 ml inhalation TID #180 mL 05/13/24 acetaminophen 325 mg tablet 325 mg PO Q4H PRN fever or pain 10/03/24 bupropion HCl 75 mg tablet 150 mg PO BID 10/03/24 multivitamin 1 tab PO QDAY 10/03/24 ondansetron 4 mg disintegrating tablet 4 mg PO Q6H 10/03/24 sodium chloride 1,000 mg soluble tablet 1,000 mg PO BID maintainence 10/03/24 potassium chloride 20 mEq/15 mL oral liquid 15 meq feeding tube DAILY SUPPLEMENT 12/21/24 thiamine HCl (vitamin B1) 100 mg tablet (Vitamin B-1) 100 mg PO DAILY replace ment 12/21/24 amiodarone 200 mg tablet 200 mg PO BID #60 tabs 12/27/24 metoprolol tartrate 25 mg tablet 12.5 mg (1/2 x 25 mg) PO BID #60 tabs 12/27/24 lactose-reduced food-fiber 0.07 gram-1.5 kcal/mL liquid for tube feed (Isosource 1.5 Nicho) 1,140 ml feeding tube DAILY 02/28/25 guaifenesin 100 mg/5 mL oral liquid (Adult Tussin Chest Congestion) 600 mg PO Q6H congestion 03/21/25 ipratropium 0.5 mg-albuterol 3 mg (2.5 mg base)/3 mL nebulization soln 3 ml inhalation Q4H PRN shortness of breath 03/21/25 menthol 0.44 %-zinc oxide 20.6 % topical ointment in packet (Calmoseptine) 1 applic topical TID 03/21/25 mineral oil-hydrophil petrolat topical ointment 1 applic topical TID PRN dry skin 03/21/25 selenium sulfide 1 % shampoo (Selsun Blue) 1 applic topical MOWEFR 03/21/25 sennosides 8.6 mg tablet (Laxative (sennosides)) 8.6 mg feeding tube BID 03/21/25 levofloxacin 750 mg tablet 750 mg G-tube DAILY@0600 4 days #0 tabs 03/27/25
[2025-03-27 13:29] VITALS: PULSE 83; RESP 18
--- NOTE | 2025-03-27 14:02 | NURSING ---
Called in report to [facility], spoke with Everette at 14:02.
--- NOTE | 2025-03-27 14:26 | CASEMGMT ---
Discharge Planning Discharge orders, signed med list, and transport time sent to [facility] via [facility]. Physicians will transport pt by cot at 5p. Nursing, SW, pt, and his daughter (Georgina) updated. Alka Valderrama DC Planning Asst
--- NOTE | 2025-03-27 19:26 | DS.PCM_ITS ---
Providers Date of Admission: 03/21/25 Primary Care Physician: Dr. Juan Rai DO Reason For Visit: HCAP W/ CONCERN FOR SEPSIS Diagnosis Discharge Diagnosis (1) Sepsis: Status: Acute Code(s): A41.9 - Sepsis, unspecified organism (2) Pneumonia: Status: Acute Code(s): J18.9 - Pneumonia, unspecified organism Medications at Discharge Home Medications atorvastatin 40 mg tablet 40 mg PO QHS Cholesterol #30 tabs 10/15/23 aspirin 81 mg tablet,delayed release 81 mg PO BREAKFAST #0 tabs 11/26/23 sennosides 8.6 mg-docusate sodium 50 mg tablet (Stool Softener-Stimulant Laxative) 2 tab PO BID #0 tabs 11/26/23 ipratropium 0.5 mg-albuterol 3 mg (2.5 mg base)/3 mL nebulization soln 3 ml inhalation TID #180 mL 05/13/24 acetaminophen 325 mg tablet 325 mg PO Q4H PRN fever or pain 10/03/24 bupropion HCl 75 mg tablet 150 mg PO BID 10/03/24 multivitamin 1 tab PO QDAY 10/03/24 ondansetron 4 mg disintegrating tablet 4 mg PO Q6H 10/03/24 sodium chloride 1,000 mg soluble tablet 1,000 mg PO BID maintainence 10/03/24 potassium chloride 20 mEq/15 mL oral liquid 15 meq feeding tube DAILY SUPPLEMENT 12/21/24 thiamine HCl (vitamin B1) 100 mg tablet (Vitamin B-1) 100 mg PO DAILY replacement 12/21/24 amiodarone 200 mg tablet 200 mg PO BID #60 tabs 12/27/24 metoprolol tartrate 25 mg tablet 12.5 mg (1/2 x 25 mg) PO BID #60 tabs 12/27/24 lactose-reduced food-fiber 0.07 gram-1.5 kcal/mL liquid for tube feed (Isosource 1.5 Nicho) 1,140 ml feeding tube DAILY 02/28/25 guaifenesin 100 mg/5 mL oral liquid (Adult Tussin Chest Congestion) 600 mg PO Q6H congestion 03/21/25 ipratropium 0.5 mg-albuterol 3 mg (2.5 mg base)/3 mL nebulization soln 3 ml inhalation Q4H PRN shortness of breath 03/21/25 menthol 0.44 %-zinc oxide 20.6 % topical ointment in packet (Calmoseptine) 1 applic topical TID 03/21/25 mineral oil-hydrophil petrolat topical ointment 1 applic topical TID PRN dry skin 03/21/25 selenium sulfide 1 % shampoo (Selsun Blue) 1 applic topical MOWEFR 03/21/25 sennosides 8.6 mg tablet (Laxative (sennosides)) 8.6 mg feeding tube BID 03/21/25 levofloxacin 750 mg tablet 750 mg G-tube DAILY@0600 4 days #0 tabs 03/27/25 Hospital Course Operations None Procedures None Summary of Care Provided Minutes Spent on Discharge: 32 Hospital Course: Per HPI: CHACORTA CONCEPCION, is a 70 M who presented to [facility] on 03/21/2025 from his extended care facility for multiple concerns including dehydration and concern for PEG tube site bleeding. Medical history significant for tracheostomy secondary to laryngeal cancer with PEG tube placement, chronic respiratory failure on 2 L nasal cannula baseline, paroxysmal A-fib not on anticoagulation due to history of PEG tube site bleeding, heart failure with recovered ejection fraction and anxiety/depression. Patient was recently hospitalized here from 02/28-03/02. He presented at that time with a reported positive sputum culture for multidrug-resistant Pseudomonas. ID followed and it was suspected that this is secondary to colonization, and patient was stable for discharge back to his ECF on 03/02. Patient is essentially nonverbal at baseline due to his tracheostomy, utilizes whiteboard for communication. He has reportedly had some bleeding on the PEG tube site for the past few days and staff at [facility] was concerned about this. He has also had elevated heart rate at times concerning for paroxysmal A-fib with RVR and has appeared more dehydrated, so he was sent here for further evaluation. On arrival to the ED he was tachycardic to the 120s to 130s and hypertensive to the 70s over 50s. EKG confirmed A-fib with RVR. Lab workup was notable for WBC count 23K. CT abdomen pelvis showed a large amount of fecal material in the rectum concerning for a fecaloma as well as scattered fecal material throughout the colon. Chest x-ray showed left basilar airspace disease concerning for atelectasis versus pneumonia. Given his elevated white blood cell count, there was concern for sepsis so patient was given 30 cc/kg of IV fluids and started on broad-spectrum antibiotics. Notably hemoglobin was 9.9, stable at baseline around 10. Hospitalist was then contacted for admission. I saw the patient at bedside in the ED. Patient was mildly fatigued appearing but was otherwise sitting back comfortably in bed and in no acute distress. He was communicating appropriately with me via hand gestures and writing on the white board. He noted feeling fatigued and his normal but denied any fevers or chills. No other concerns currently. Will be admitted for further management. Hospital Course: 1. Sepsis without shock suspected secondary to healthcare associated pneumonia with acute on chronic hypoxic respiratory failure, history of tracheostomy and PEG tube status secondary to history of laryngeal cancer ? On 2 L nasal cannula at baseline as below, requiring up to 8 L nasal cannula on admit to maintain appropriate oxygen saturations. Patient met sepsis criteria on admit with SBP less than 90, marked leukocytosis and suspected respiratory source. Chest x-ray showed left basilar airspace disease concerning for pneumonia. Patient given 30 cc/kg of IV fluids on admit with improved and blood pressure up to the 110s systolic. Sputum culture grew Pseudomonas sensitive to Levaquin. De-escalated from IV antibiotics to p.o. Levaquin and will complete 10-day course of antibiotics total on 03/30. Patient has had increased oxygen requirement since admission and BNP was mildly elevated back on 03/23 so he was diuresed with some improvement in oxygenation status. Most recent chest x-ray did show continued left lower lobe pneumonia so suspect this will be a slowly resolving pneumonia. Weaning supplemental oxygen as able and tentatively planning for discharge back to nursing facility on 03/27. 03/27/2025: He is doing much better today, and I discussed with him the possibility for discharge and he expressed understanding of the risks and benefits of going back to his nursing facility and he would like to go back today. Will continue with Levaquin 750 mg per G-tube for another 4 days to complete treatment. 2. Chronic normocytic anemia with concern for bleed around PEG tube site, history of bleed around tracheostomy site ? Hemoglobin 9.9 on admit, baseline around 10. Patient was admitted here in November for a bleed around his tracheostomy site and hemoglobin dropped to 8 at that time. His Eliquis for paroxysmal A-fib was discontinued then. Nursing staff at his rehab facility noted bleeding around his PEG tube site on the day prior to this admission. Hemoglobin dropped to 8.9 on hospital day 2 suspected secondary to IV fluid resuscitation. PEG tube site with mild dried blood noted but no active signs of bleeding during this hospitalization. Notably CT abdomen pelvis on admit showed no concerning findings around the PEG tube site, and PEG tube has been flushing without issue. Monitor CBC daily. 3. Paroxysmal A-fib with RVR, chronic heart failure with recovered ejection fraction, hyperlipidemia ? Patient in A-fib with RVR with rate to the 130s on admit. Suspect secondary to sepsis and pneumonia as above. Given significant IV fluids on admit as above with improvement in blood pressure and some improvement in heart rate but patient remains in A-fib. Will continue home amiodarone and Lopressor and also order IV Lopressor 5 mg every 6 hours as needed for heart rate greater than 130. Notably last echo in November showed EF 50%, mild hypokinesis of left ventricle. Okay to continue home aspirin and statin as well. Has remained in A-fib with fairly good rate control, continue home amiodarone and Lopressor. 03/27/2025: Rate controlled in the 80s no further medication changes on discharge 4. Constipation, improved ? CT abdomen pelvis on admit showed significant stool burden near the rectum with concern for fecaloma. Patient reports a few small bowel movements over the past few days but no significant bowel movements. Suspect this is secondary to dehydration in setting of sepsis as above, was given significant IV fluids on admit as above. Given enemas on 03/21 without improvement. Initiated on MiraLAX twice daily and home senna 2 tablets twice daily through G-tube started on 03/22 without much improvement. Attempted fecal disimpaction at bedside on the morning of 03/23 and no stool present in the rectum. CT abdomen pelvis on 03/23 showed large amount of fecal load in the colon but otherwise no bowel wall thickening or obstruction and no other concerning findings. Patient with several bowel movements on 03/23-03/24, much improved. Continue senna and MiraLAX and increased back to baseline tube feed rate on 03/26. 5. Chronic mild hyponatremia ? Sodium 133 on admit, stable at baseline. Continue home sodium chloride tablet. 6. Anxiety/depression ? Stable. Continue home bupropion. 7. Chronic debility ? Case management following. Has lived at [facility] for about 1 year now and will return there on discharge. No pre-CERT needed to return there. Physical Exam Narrative General: Alert, Oriented x3, Cooperative, No apparent distress HEENT: Atraumatic, PERRLA, EOMI, Normocephalic Oral: Moist Mucosa Neck: Supple, No JVD, tracheostomy Lungs: Diminished, Normal air movement, No rhonchi, No wheeze, No rales Cardiovascular: Regular rate, Regular Rhythm, Normal S1, Normal S2, No murmurs Abdomen: Soft, Non Tender, Non-Distended, No Hepato-splenomegaly, PEG tube in place Extremities: No edema, Capillary Refill Less than 3 Seconds Skin: No rashes, No breakdown Musculoskeletal: No Tenderness to Palpation of Joints or Extremities Neurological: No focal neurological deficits, moves all extremities Psych/Mental Status: Normal Affect, Appropriate Weight / BMI Weight Weight: 152 lb 8.958 oz Body Mass Index (BMI) 22.5 ABG / Lab / Microbiology Data 03/27/25 06:40 03/27/25 06:40 Laboratory: Laboratory Results - last 24 hr 03/27/25 06:40: WBC 7.1, RBC 3.65 L, Hgb 9.7 L, Hct 30.2 L, MCV 82.7, MCH 26.6 L , MCHC 32.1, RDW Std Deviation 51.4 H, RDW Coeff of Elidia 17.2 H, Plt Count 271, MPV 9.8, Sodium 145, Potassium 3.6, Chloride 103, Carbon Dioxide 31.9, Anion Gap 10, BUN 17, Creatinine 0.53 L, Estim Creat Clear Calc 84.10, Est GFR (MDRD) Non- Af 108, BUN/Creatinine Ratio 32.1 H, Glucose 91, Calcium 9.2, Phosphorus 3.4 Microbiology: Microbiology 03/21/25 09:57 Blood Culture (Wb) - Right Wrist Blood Culture - Final No growth in 5 days. 03/21/25 09:56 Blood Culture (Wb) - Anticubital Right Blood Culture - Final No growth in 5 days. 03/22/25 06:05 Sputum, Expectorated/Coughed Gram Stain - Final 03/22/25 06:05 Sputum, Expectorated/Coughed Respiratory Culture - Final Pseudomonas aeruginosa D/C Instructions DC O2, CPAP, BIPAP Needs Home O2 Discharge instructions: No Meaningful Use Info Meaningful Use Meaningful Use Diagnoses (Choose all that apply): None applicable Discharge Plan Admission Admit Date/Time: 03/21/25 12:42 Attending Provider: Gautam Wesley Primary Care Provider: Juan Rai Consulting Providers: Sen Gotti Discharge Orders/Prescriptions Prescriptions: New levofloxacin 750 mg Tablet 750 mg G-tube DAILY@0600 4 Days Qty: 0 0RF Continued ipratropium-albuterol 0.5 mg-3 mg(2.5 mg base)/3 mL solution for nebulization 3 ml inhalation TID Qty: 180 11RF acetaminophen 325 mg tablet 325 mg PO Q4H PRN (Reason: fever or pain) bupropion HCl 75 mg tablet 150 mg PO BID multivitamin Tablet 1 tab PO QDAY ondansetron 4 mg tablet,disintegrating 4 mg PO Q6H sodium chloride 1,000 mg tablet,soluble 1,000 mg PO BID atorvastatin 40 mg Tablet 40 mg PO QHS Qty: 30 2RF Isosource 1.5 Nicho 0.07 gram-1.5 kcal/mL liquid 1,140 ml feeding tube DAILY Rx Instructions: 60cc/hr , 1 time a day flush with 45cc/hr continuously while TV running for a totla of 1080cc of water sennosides-docusate sodium [Stool Softener-Stimulant Laxat] 8.6-50 mg Tablet 2 tab PO BID Qty: 0 0RF aspirin 81 mg Tablet,Delayed Release (Dr/Ec) 81 mg PO BREAKFAST Qty: 0 0RF potassium chloride 20 mEq/15 mL liquid 15 meq feeding tube DAILY thiamine HCl (vitamin B1) [Vitamin B-1] 100 mg Tablet 100 mg PO DAILY amiodarone 200 mg Tablet 200 mg PO BID Qty: 60 2RF Rx Instructions: to take one tablet (200mg) twice daily x 1 month, then to follow with 200mg (one tablet) daily metoprolol tartrate 25 mg Tablet 12.5 mg PO BID Qty: 60 2RF Calmoseptine 0.44-20.6 % ointment in packet 1 applic topical TID Selsun Blue 1 % shampoo 1 applic topical MOWEFR Rx Instructions: massage into affected area; leave on for 10 mins ; rinse off thoroughly mineral oil-hydrophil petrolat Ointment 1 applic topical TID PRN (Reason: dry skin) ipratropium-albuterol 0.5 mg-3 mg(2.5 mg base)/3 mL solution for nebulization 3 ml inhalation Q4H PRN (Reason: shortness of breath) sennosides [Laxative (sennosides)] 8.6 mg tablet 8.6 mg feeding tube BID guaifenesin [Adult Tussin Chest Congestion] 100 mg/5 mL liquid 600 mg PO Q6H Referrals / Follow Up: Juan Rai DO [Primary Care Provider, Hospitalist] Disposition Disposition (needs filled in before D/C Order can be placed): Custodial Facility Charges/Coding Visit Charges Inpatient E&M: 14813 Disch Hosp >30min
== END 2025-03-27 18:20 | disposition skilled nursing facility (03) | DRG 871 ==
LOC: ED 12:17 → PCU 12:49
PROVIDERS: Internal Medicine; Admitting Provider Hospitalist; Emergency Provider Emergency Medicine; PCP Internal Medicine; Visit Provider Family Medicine
DX: A41.52 Sepsis due to Pseudomonas (principal); J96.21 Acute and chronic respiratory failure with hypoxia; J15.1 Pneumonia due to Pseudomonas; E87.1 Hypo-osmolality and hyponatremia; I50.22 Chronic systolic (congestive) heart failure; J44.0 Chronic obstructive pulmonary disease with (acute) lower respiratory infection; Z93.0 Tracheostomy status; Z66 Do not resuscitate; I48.0 Paroxysmal atrial fibrillation; E86.0 Dehydration; F32.A Depression, unspecified; D64.9 Anemia, unspecified; I11.0 Hypertensive heart disease with heart failure; Z93.1 Gastrostomy status; K56.41 Fecal impaction; E78.00 Pure hypercholesterolemia, unspecified; F41.9 Anxiety disorder, unspecified; Z99.81 Dependence on supplemental oxygen; Z79.51 Long term (current) use of inhaled steroids; Z79.82 Long term (current) use of aspirin; Z79.899 Other long term (current) drug therapy; Z85.21 Personal history of malignant neoplasm of larynx; Z87.891 Personal history of nicotine dependence
CPT/HCPCS: 31720; 36415; 71045; 74176; 74177; 80048; 80053; 80202; 81001; 83605; 83690; 83735; 83880; 84100; 85025; 85027; 85610; 85730; 87040; 87070; 87077; 87184; 87186; 87205; 93005; 94640; 94762; 97161; 97166; 97802; 97803; 99285; J2185; P9047; Q9967; A4216; J1938